=== PATIENT | male | born 1965 | race Caucasian/White ===

== ENCOUNTER 2020-07-08 14:25 | Outpatient (REF) | payer OTHER, SELFPAY ==
[2020-07-15 22:22] LABS: Stone Source KIDNEY STONE
== END 2020-07-08 14:26 | disposition home or self-care (01) ==
LOC: HO.LNP 14:25
PROVIDERS: Visit Provider Internal Medicine
DX: N20.0 Calculus of kidney (principal); E11.9 Type 2 diabetes mellitus without complications
CPT/HCPCS: 82365; 88300

== ENCOUNTER → 2020-07-10 10:12 | Outpatient (BNVA) | payer OTHER, SELFPAY | PROVIDERS: PCP Internal Medicine; Visit Provider Urology | DX: N13.2 Hydronephrosis with renal and ureteral calculous obstruction (principal); N40.1 Benign prostatic hyperplasia with lower urinary tract symptoms; N13.8 Other obstructive and reflux uropathy | CPT/HCPCS: 99214 ==

== ENCOUNTER 2020-07-15 14:22 | Outpatient (REF) | payer OTHER, SELFPAY ==
--- NOTE | 2020-07-15 | US_ITS ---
EXAMINATION: RENAL ULTRASOUND CLINICAL INFORMATION: Renal stones COMPARISON: Previous CT scans most recent June 2020 abdominal ultrasound September 2019 TECHNIQUE: Grayscale and color imaging of the kidneys FINDINGS: Right kidney measures 12.8 x 9.9 x 6.9 cm in dimension. Renal cortical thickness and echogenicity is normal. No renal stone, mass or hydronephrosis is seen. Left kidney measures 16.3 x 11 x 6.1 cm in dimension. There are 2 left renal cysts measuring 4.7 x 4.5 x 5.4 cm in the midpole and 2.8 x 2.7 x 2.4 cm in the lower pole. There are 2 renal stones measuring 6 and 7 mm in the mid pole and measuring 6 x 5 x 9 mm in the lower pole. There is no renal mass or hydronephrosis. IMPRESSION: Normal right kidney. Left renal stones. Left renal cysts.
== END 2020-07-15 14:23 | disposition home or self-care (01) ==
LOC: HO.US 14:22
PROVIDERS: Visit Provider Urology
DX: N20.0 Calculus of kidney (principal)
CPT/HCPCS: 76775

== ENCOUNTER 2020-08-06 06:07 | Day surgery (SDC) | payer OTHER, SELFPAY ==
[2020-08-01 10:47] VITALS: BMI 35.2
--- NOTE | 2020-08-05 09:41 | P.CONAN_ITS ---
HPI - Anesthesia Eval Consult details Narrative: CX'd 55yo M for Lithotripsy ESW PMFSH Past Medical History Medical History (Updated 08/06/20 @ 15:51 by Price Jose MD) Arthritis Back pain CAD (coronary artery disease) Cervical radiculopathy Depression Diabetes type 2, controlled Elevated cholesterol GERD (gastroesophageal reflux disease) History of 2019 novel coronavirus disease (COVID-19) History of ADHD History of fatty infiltration of liver HTN (hypertension) Nephrolithiasis Sleep apnea Surgical History Surgical History H/O colonoscopy History of carpal tunnel release History of esophagogastroduodenoscopy (EGD) Hx laparoscopic cholecystectomy Hx of arthroscopic knee surgery Hx of cardiac catheterization Hx of lumbar discectomy Hx of shoulder surgery Social History Social History Smoking Status: Never smoker Narrative Narrative: FOllows cardiology yearly with atypical CP. Cardiac cath 2017 showed nonobstructive CAD No blood/blood products per cheondoism Meds Allergies Allergy/AdvReac Type Severity Reaction Status Date / Time morphine [Morphine] Allergy Severe HIVES, Verified 08/01/20 10:58 THROAT CLOSES penicillin G [Penicillin G] Allergy Severe ANAPHYLAXIS Verified 08/01/20 10:59 Sulfa (Sulfonamide Allergy Severe ANAPHYLAXIS Verified 08/01/20 10:59 Antibiotics) [SULFA (SULFONAMIDE ANTIBIOTICS)] Gadolinium-Containing Allergy Intermediate Hives/Rash, Verified 08/01/20 10:59 Contrast Medi dizziness, [Gadolinium-Containing blue spots Agents] tramadol AdvReac Gastrointestinal Verified 08/01/20 10:58 Upset Home Medications Medication Instructions Recorded Confirmed Type aspirin 81 mg tablet,delayed 81 mg PO DAILY 07/10/20 08/01/20 History release hydrochlorothiazide 12.5 mg tablet 12.5 mg PO QAM 07/10/20 08/01/20 History losartan 50 mg tablet 50 mg PO DAILY 07/10/20 08/01/20 History omeprazole 20 mg capsule,delayed 20 mg PO BID 07/10/20 08/01/20 History release ranitidine HCl 150 mg tablet 150 mg PO DAILY PRN 07/10/20 08/01/20 History rosuvastatin 40 mg tablet 40 mg PO DAILY 07/10/20 08/01/20 History metoprolol tartrate 50 mg PO BID 08/01/20 08/01/20 History Exam Exam Date and Time: August 05, 2020 0941 Height,Weight and Vital Signs: Height 5 ft 10 in Weight 111.13 kg Pertinent Lab Results Pertinent Lab Results: Laboratory Tests 06/24/20 06/24/20 12:41 12:41 WBC 7.1 Hgb 14.1 Hct 44.5 Plt Count 218 Sodium 139 Potassium 4.2 Chloride 106 BUN 12 Creatinine 1.09 Narrative Narrative: EKG 10/2019: SB@55, otherwise normal ECHO 10/30/19: LVEF 60-65%, wall motion assessment suboptimal, but no major abnormality noted, Mild calc of AV, no . Assessment and Plan Assessment Anesthesia Assessment: Chart Reviewed
[2020-08-06] VITALS (7 sets, daily range): BP systolic 122–155; BP diastolic 77–96; PULSE 60–78; RESP 16; TEMP 36.1–36.4; O2SAT 90–99
--- NOTE | 2020-08-06 06:40 | XR_ITS ---
EXAMINATION: XR ABDOMEN KUB CLINICAL INDICATION: Left kidney stone. COMPARISON: CT abdomen pelvis dated 06/24/2020 and ultrasound dated 07/15/2020 TECHNIQUE: AP view of the abdomen. FINDINGS: 2 radiodense calculi are again noted overlying the left lower renal pole, each measuring 4 mm in diameter. No right renal calculi are identified. The calculus seen in the left hemipelvis on the prior study is not radiographically apparent on the current study. There is a phlebolith in this region which appears unchanged. No discrete ureteral calculi are identified. Cholecystectomy clips are present in the right upper quadrant. Nondilated bowel gas pattern. Lung bases are clear. Mild degenerative spondylosis in the lumbar spine. XR/XR KUB IMPRESSION: 2 radiodense left renal calculi.
[2020-08-06 07:07] LABS: Glucose, Whole Blood 100 mg/dL (60-115)
[2020-08-06] MEDS: Lactated Ringers 1,000 ML 100 ML IVCONT (08:11)
--- NOTE | 2020-08-06 08:15 | MHC.SHP ---
Pre-Procedural Eval Section A The patient is an INPATIENT: No Changes since office visit: No Cold of Flu in the past 2 weeks, No New Medical Problems, No Changes in Medication and No Patient answered all questions The History & Physical has been completed within 30 days and I have reviewed it.: Yes Section B Chief Complaint: left kidney stone Allergies: Allergies Allergy/AdvReac Type Severity Reaction Status Date / Time morphine [Morphine] Allergy Severe HIVES, Verified 08/01/20 10:58 THROAT CLOSES penicillin G [Penicillin G] Allergy Severe ANAPHYLAXIS Verified 08/01/20 10:59 Sulfa (Sulfonamide Allergy Severe ANAPHYLAXIS Verified 08/01/20 10:59 Antibiotics) [SULFA (SULFONAMIDE ANTIBIOTICS)] Gadolinium-Containing Allergy Intermediate Hives/Rash, Verified 08/01/20 10:59 Contrast Medi dizziness, [Gadolinium-Containing blue spots Agents] tramadol AdvReac Gastrointestinal Verified 08/01/20 10:58 Upset Plan Patient has been examined and remains a candidate for the planned procedure
--- NOTE | 2020-08-06 09:44 | PM.OP ---
Brief Operative Note Date of procedure: 08/06/20 Pre-op diagnosis: left renal stone Procedure: Left ESWL Surgeon: Clement Bernard MD Anesthesia: MAC Estimated blood loss (mL): 0 Pathology: none sent Condition: stable Disposition: same day
--- NOTE | 2020-08-06 09:46 | PM.OP ---
Brief Operative Note Date of procedure: 08/06/20 Surgeon: Clement Bernard MD Estimated blood loss (mL): 0
--- NOTE | 2020-08-06 09:46 | W.PM.OPN ---
Operative Note Operative Note Narrative: PreOperative Diagnosis: Renal stones Post Operative Diagnosis: Renal stones Procedure: Left ESWL Surgeon: Dr Clement Bernard Anesthesia: mac/sedation Indications for procedure: They understand ESWL may be a staged procedure and subsequent intervention may be required based on imaging after ESWL. They also understand there is a risk of bleeding, infection, damage to adjacent organs. Procedure: After informed consent was verified patient was brought to the operating room placed in supine position. Anesthesia was performed per protocol. Imaging in room and confirmed. Safety pause time-out was performed. ESWL was performed. The 1st 500 shocks were performed at 60 hertz. This was performed with increasing power. Once maximum power was reached the rate was increased to 180 hertz. A total of 2500 shocks were given. Fluoroscopy showed stone disintegration. They tolerated procedure well and was transferred to the recovery area upon completion.
--- NOTE | 2020-08-06 10:06 | HO.POSTANES ---
Post Anesthesia Evaluation Post Anesthesia Evaluation Vital Signs: Vital Signs Temp Pulse Resp BP Pulse Ox 08/06/20 10:00 97.6 F 60 16 155/87 H 94 08/06/20 09:55 60 16 143/83 H 99 08/06/20 09:50 63 16 153/83 H 99 08/06/20 09:45 97.6 F 62 16 138/85 90 L 08/06/20 07:08 97.3 F 78 16 122/96 H 97 Anesthesia: General Mental Status: Awake Pain Control: Satisfactory Nausea/Vomiting: None Hydration: Adequate Anesthesia-Related Issues: No Anes. Related Issues
== END 2020-08-06 11:16 | disposition home or self-care (01) ==
PROVIDERS: PCP Internal Medicine; Visit Provider Urology
PROC: (CPT 50590; principal; 2020-08-06 08:20)
DX: N20.0 Calculus of kidney (principal); Z87.442 Personal history of urinary calculi; I10 Essential (primary) hypertension; G47.30 Sleep apnea, unspecified; E11.9 Type 2 diabetes mellitus without complications; K21.9 Gastro-esophageal reflux disease without esophagitis; F32.9 Major depressive disorder, single episode, unspecified; Z79.82 Long term (current) use of aspirin; Z79.899 Other long term (current) drug therapy; Z86.19 Personal history of other infectious and parasitic diseases; Z88.0 Allergy status to penicillin; Z88.2 Allergy status to sulfonamides; Z91.041 Radiographic dye allergy status; Z88.8 Allergy status to other drugs, medicaments and biological substances
CPT/HCPCS: 50590; 74018; 82947; J1100; J2250; J2405; J3010

== ENCOUNTER → 2020-10-02 13:06 | Outpatient (BNVA) | payer OTHER, SELFPAY | PROVIDERS: Visit Provider Urology | DX: N40.1 Benign prostatic hyperplasia with lower urinary tract symptoms (principal); N13.8 Other obstructive and reflux uropathy; N20.0 Calculus of kidney | CPT/HCPCS: 99212 ==

== ENCOUNTER → 2020-10-07 09:51 | Outpatient (BNVA) | payer OTHER, SELFPAY | PROVIDERS: Visit Provider Internal Medicine Cardiovascular Disease | DX: I25.10 Atherosclerotic heart disease of native coronary artery without angina pectoris (principal); I10 Essential (primary) hypertension; R07.89 Other chest pain; R06.02 Shortness of breath | CPT/HCPCS: 93005; 99212 ==

== ENCOUNTER → 2020-10-27 09:35 | Outpatient (REF) | payer OTHER, SELFPAY ==
--- NOTE | 2020-10-27 09:38 | CA_ITS ---
Acquisition Time: 2020-10-27 10:49:30 Total Exercise Time: 00:03:20 Test Indications: Dyspnea Medications: SEE CHART Protocol: VANE Max HR: 097 BPM 58% of Pred: 166 BPM Max BP: 138/078 mmHG Max Work Load: 5.0 METS Exercise stress test with exercise 3 min 20 sec of Vane protocol, with right hip pain and request to stop exercise, without sob or chest discomfort, without arrythmia, with normotensive response to exercise, with nondiagnostic EKG due to suboptimal heart rate and exercise time. Test reviewed with Dr Leong. Will order pharmacological nuclear stress test to further eval for ischemia. Referred By: Robbie Ocampo Overread By: DONN HDZ
== END ==
LOC: HO.CARD 09:35
PROVIDERS: Visit Provider Internal Medicine Cardiovascular Disease
DX: R07.89 Other chest pain (principal)
CPT/HCPCS: 93017

== ENCOUNTER 2020-10-31 15:02 | Emergency (ER) | payer OTHER, SELFPAY ==
[2020-10-31 15:47] VITALS: BP 198/86; PULSE 65; RESP 18; TEMP 36.4; O2SAT 97; BMI 31.8
== END 2020-10-31 18:37 | disposition left against medical advice (07) ==
PROVIDERS: Emergency Provider Emergency Medicine; PCP Internal Medicine
DX: H92.03 Otalgia, bilateral (principal); R68.84 Jaw pain
CPT/HCPCS: 99282

== ENCOUNTER → 2020-11-05 09:09 | Outpatient (REF) | payer OTHER, SELFPAY ==
--- NOTE | ~2020-11-05 | NM_ITS ---
Lexiscan Myocardial perfusion study Indication: Chest pain, shortness of breath, assess for ischemia Technique: The patient was brought in for a Lexiscan perfusion study on 11/07/2020 and was injected 0.4 mg of Lexiscan intravenously. Within a minute of this injection 35 mCi of sestamibi was given intravenously. Images were obtained using the SPECT gamma camera interlaced with the gating device. Images were obtained in supine position. Resting perfusion study was performed on 11/06/2020. Patient was administered 35 mCi of sestamibi intravenously at rest. Images were then obtained in supine position. Total DLP 88mGy-cm. Images were processed with the software and compared side to side in short axis, horizontal long axis and vertical long axis views. Findings: Raw acquisition was reviewed. The stress perfusion study showed diminished tracer uptake in the basal part of inferior wall and inferoseptal wall. With CT attenuation correction this seems to improve suggestive of diaphragmatic artifact. The gated study shows normal LV systolic function with calculated LVEF of 58%. LV cavity is normal in size. The gated study shows normal wall thickening and contraction of segments. Resting study shows diminished tracer uptake along the basal septum that seems to improve with CT attenuation correction again suggesting artifactual etiology. Gating at rest reveals normal wall motion with ejection fraction at 54%. The findings are consistent with no reversible defects. Fixed defect in the basal inferior and adjacent septal areas probably artifactual. NM/NM marilyn perf SPECT rest & str Impression: 1. Myocardial perfusion imaging study shows likely normal myocardial perfusion. No definitive evidence of any ischemia or infarction 2. Gated LVEF is 58% during stress and 54% during rest. 3. Transient ischemic dilatation not present. EKG component of the test reported separately.
--- NOTE | 2020-11-05 09:12 | CA_ITS ---
Acquisition Time: 2020-11-05 10:37:43 Total Exercise Time: 00:02:00 Test Indications: 125.10 Medications: see chart Protocol: LEXISCAN Max HR: 093 BPM 56% of Pred: 166 BPM Max BP: 126/070 mmHG Max Work Load: 1.0 METS Pharmacological stress test with Lexiscan injection while sitting and kicking his legs, without anginal symptoms, without arrythmia, with normotensive response to injection, with nondiagnostic EKG for ischemia. At 5 min recovery he reported having a pressure in his right lateral neck/ jaw. He was treated with aminophylline 75mg IVP to reverse Lexiscan with resolution of symptom. Nuclear images pending. Test reviewed with Dr Ocampo. Referred By: Aurea Castañeda Overread By: AUREA CASTAÑEDA
== END ==
LOC: HO.CARD 09:09
PROVIDERS: Visit Provider Nurse Practitioner Family
DX: R07.89 Other chest pain (principal); I25.10 Atherosclerotic heart disease of native coronary artery without angina pectoris; R06.02 Shortness of breath
CPT/HCPCS: 78452; 93017; A9500; J0280; J2785

== ENCOUNTER 2020-11-10 14:15 | Outpatient (REF) | payer OTHER, SELFPAY ==
[2020-11-10 15:20] LABS: Hematocrit 43.8 % (42-52); Hemoglobin 14.3 g/dl (14.0-18.0); Mean Corpuscular HGB Conc 32.6 g/dl (31.0-36.0); Mean Corpuscular Hemoglobin 26.2 pg (27.0-33.0); Mean Corpuscular Volume 80.4 fL (80-98); Mean Platelet Volume 10.6 fL (9.4-12.4); Platelet Count 298 X10*3/uL (160-400); Red Blood Count 5.45 X10*6/uL (4.60-5.80); Red Cell Distribution Width 13.1 % (11.0-16.0); White Blood Count 5.9 X10*3/uL (4.8-10.8)
[2020-11-10 16:08] LABS: Creatinine Urine 231.96 mg/dL; Microalbum/Creatinine Ratio Ur 15.9 ug/mg cr
[2020-11-10 16:17] LABS: Alanine Aminotransferase 72 U/L (0-40); Albumin Level 4.5 g/dL (3.5-5.0); Alkaline Phosphatase 78 U/L (39-117); Blood Urea Nitrogen 17 mg/dL (9-16); Estimated Glomerular Filt Rate > 60; Glucose Random 257 mg/dL (60-115)
[2020-11-10 16:27] LABS: Anion Gap 10 (12-20); Aspartate Amino Transferase 35 U/L (5-37); Bilirubin Total 0.6 mg/dL (0.0-1.0); Calcium 10.6 mg/dL (8.4-10.2); Carbon Dioxide 27 mmol/L (22-29); Chloride 105 mmol/L (96-108); Potassium 4.4 mmol/L (3.3-5.1); Sodium 138 mmol/L (135-145); Total Protein 7.3 g/dL (6.5-8.0)
[2020-11-10 16:32] LABS: Thyroid Stimulating Hormone 1.73 uIU/mL (0.32-4.0)
[2020-11-10 16:38] LABS: Vitamin B12 300 pg/mL (200-900)
[2020-11-11 06:22] LABS: LDL Cholesterol Direct 30 mg/dL (<100)
== END 2020-11-10 14:16 | disposition home or self-care (01) ==
LOC: HO.LAB 14:15
PROVIDERS: PCP Internal Medicine; Visit Provider Internal Medicine Endocrinology, Diabetes & Metabolism
DX: E11.65 Type 2 diabetes mellitus with hyperglycemia (principal); E11.42 Type 2 diabetes mellitus with diabetic polyneuropathy; Z79.4 Long term (current) use of insulin; E78.5 Hyperlipidemia, unspecified; I10 Essential (primary) hypertension; E66.9 Obesity, unspecified; Z68.34 Body mass index [BMI] 34.0-34.9, adult
CPT/HCPCS: 36415; 80053; 82043; 82607; 82947; 83721; 84439; 84443; 85027; 99212

== ENCOUNTER 2020-11-14 08:08 | Outpatient (REF) | payer OTHER, SELFPAY ==
--- NOTE | ~2020-11-14 | US_ITS ---
EXAMINATION: US RETROPERITONEAL LIMITED (RENAL ONLY) CLINICAL INFORMATION: Renal stone. COMPARISON: Previous renal ultrasound July [address] of the abdomen and pelvis June 2020 TECHNIQUE: Grayscale and color imaging of the kidneys FINDINGS: RIGHT KIDNEY: 11.9 x 6.4 x 6.7 cm (SAG x AP x TRV). The kidney is normal in size, contour, and echogenicity. Renal cortical thickness is normal. No calculi or focal parenchymal lesions. No hydronephrosis. LEFT KIDNEY: 16.3 x 6.4 x 7.2 cm (SAG x AP x TRV). There is a duplicated left renal collecting system. Renal cortical thickness and echogenicity is normal. There is a 4.5 cm cyst in the lower pole. There are multiple echogenic densities with twinkle artifact some acoustic shadowing suggestive of small stones. The largest measures 4 mm in the lower pole. There is no hydronephrosis or mass. US/US renal BI IMPRESSION: Duplicated left renal collecting system. Multiple left renal stones, largest measuring 4 mm in the lower pole. 4.5 cm left renal cyst. Normal right kidney.
[2020-11-14 09:04] LABS: Alanine Aminotransferase 64 U/L (0-40); Albumin Level 4.4 g/dL (3.5-5.0); Alkaline Phosphatase 76 U/L (39-117); Aspartate Amino Transferase 28 U/L (5-37); Bilirubin Direct 0.2 mg/dL (0.0-0.5); Bilirubin Total 0.5 mg/dL (0.0-1.0); Calcium 9.4 mg/dL (8.4-10.2); Total Protein 7.1 g/dL (6.5-8.0)
[2020-11-14 09:26] LABS: Vitamin D 25-OH Total 13.8 ng/mL (>30)
[2020-11-17 16:47] LABS: Calcium (PTHI) 9.6 mg/dL (8.6-10.3); PTHI 54 pg/mL (14-64)
== END 2020-11-14 08:09 | disposition home or self-care (01) ==
LOC: HO.LAB 08:08
PROVIDERS: PCP Internal Medicine; Visit Provider Internal Medicine Endocrinology, Diabetes & Metabolism
DX: E11.65 Type 2 diabetes mellitus with hyperglycemia (principal); Z79.4 Long term (current) use of insulin; N20.0 Calculus of kidney
CPT/HCPCS: 36415; 76775; 80076; 82306; 82310; 83970

== ENCOUNTER → 2020-11-24 10:13 | Outpatient (BNVA) | payer OTHER, SELFPAY | PROVIDERS: PCP Internal Medicine; Visit Provider Internal Medicine Gastroenterology | CPT/HCPCS: Q3014 ==

== ENCOUNTER 2020-11-25 10:35 | Inpatient (IN) | payer OTHER, SELFPAY ==
[2020-11-25] VITALS (9 sets, daily range): BP systolic 137–177; BP diastolic 65–97; PULSE 51–67; RESP 15–18; TEMP 36.6–37; O2SAT 95–98; BMI 27.1
--- NOTE | ~2020-11-25 | CT_ITS ---
EXAMINATION: CT ABDOMEN AND PELVIS WITHOUT CONTRAST CLINICAL INFORMATION: Left flank pain. COMPARISON: 06/24/2020 TECHNIQUE: Multidetector volumetric imaging was performed from the superior aspect of the liver through the pubic symphysis. Sagittal and coronal reformatted images were obtained on the technologist's workstation. This CT examination was performed using dose optimization techniques as appropriate, variously including the following: *Automated exposure control *Adjustment of mA and/or kV according to patient size (this includes techniques or standardized protocols for targeted exams where dose is matched to indication/reason for exam; i.e. extremities or head) *Use of iterative reconstruction technique DLP: 746 mGy-cm FINDINGS: LUNG BASES: The visualized lung bases are unremarkable. LIVER, GALLBLADDER, AND BILIARY TREE: The liver is normal in size, shape, and attenuation. No focal hepatic lesion or biliary ductal dilatation is present. Stable 2 small calcified granulomas in the right lobe. Status post cholecystectomy. PANCREAS: Unremarkable. SPLEEN: Unremarkable. Stable small nodule adjacent to the spleen. ADRENAL GLANDS: Unremarkable. KIDNEYS AND URETERS: There are calcific densities in the distal left ureter in the pelvis, extending over a distance of 1.8 cm craniocaudal. This appears to represent multiple calculi clustered together within the ureter. Reference image 5:69, 6:52, [id number]. There is associated mild hydronephrosis. Left renal 4.7 cm cyst. Mild left perinephric stranding. No renal calculi are seen. No right hydronephrosis. BLADDER: Underdistended grossly unremarkable. GASTROINTESTINAL TRACT: The small and large bowel are unremarkable. The appendix is unremarkable. ABDOMINAL WALL: No significant hernia is appreciated. LYMPH NODES: No adenopathy seen. VASCULAR: Normal caliber aorta. PELVIC VISCERA: Within normal limits. OSSEOUS STRUCTURES: Surgical changes from posterior spinal fusion at L5-S1. Mild thoracolumbar spondylosis otherwise. No acute osseous abnormality seen. CT/CT abdomen pelvis wo con IMPRESSION: 1. Calcific densities in the distal left ureter in the pelvis, having the appearance of multiple calculi clustered together within the ureter extending over a distance approximately 1.8 cm craniocaudal. There is associated mild left hydronephrosis. 2. Left renal 4.7 cm cyst. 3. Stable 2 small calcified granulomas in the liver. 4. Status post cholecystectomy.
[2020-11-25 12:53] LABS: Glucose Urine UA 100 MG/DL (NEG); Leukocyte Esterase Urine NEG (NEG); Nitrite Urine NEG (NEG); PH 5.5 (5.0-8.0); Specific Gravity - Urine >= 1.030 (1.005-1.025); Urine Blood 3+ (NEG); Urine Ketones 5 MG/DL (NEG); Urine Protein NEG (NEG-TRACE)
[2020-11-25 12:58] LABS: Appearance Urine HAZY; Color Urine YELLOW
[2020-11-25 13:05] LABS: Mucus Urine 1+ /LPF; Squamous Epithelial Cell Urine 1+ /LPF; WBC Urine 0 /HPF (0-4)
[2020-11-25 13:31] LABS: Glucose, Whole Blood 210 mg/dL (60-115)
[2020-11-25 13:37] LABS: MANUAL DIFF FLAG NO
[2020-11-25] MEDS: Ketorolac Tromethamine 30 MG/ML VIAL IVPUSH (13:37)
[2020-11-25] MEDS: 0.9 % Sodium Chloride 1,000 ML 999 ML IVCONT (13:37)
[2020-11-25 13:39] LABS: Basophils Percent Auto 0.3 % (0-2); Eosinophils Absolute Auto 0.3 X10*3/uL (0.0-0.4); Eosinophils Percent Auto 4.1 % (0-4); Hematocrit 40.5 % (42-52); Hemoglobin 13.3 g/dl (14.0-18.0); Imm Gran Abs Auto 0.02 X10*3/uL (0.00-0.03); Imm Gran Pct Auto 0.3 % (0.0-0.4); Lymphocytes Absolute Auto 1.7 X10*3/uL (1.2-4.9); Lymphocytes Percent Auto 27.6 % (20-40); Mean Corpuscular HGB Conc 32.8 g/dl (31.0-36.0); Mean Corpuscular Hemoglobin 26.6 pg (27.0-33.0); Mean Platelet Volume 10.5 fL (9.4-12.4); Monocytes Absolute Auto 0.6 X10*3/uL (0.1-1.2); Monocytes Percent Auto 9.2 % (2-11); Neutrophils Absolute Auto 3.6 X10*3/uL (2.0-8.3); Neutrophils Percent Auto 58.5 % (45-73); Platelet Count 215 X10*3/uL (160-400); Red Cell Distribution Width 13.8 % (11.0-16.0); White Blood Count 6.1 X10*3/uL (4.8-10.8)
[2020-11-25 13:43] LABS: Prothrombin Time 12.1 SEC (10.8-13.0)
[2020-11-25 14:02] LABS: Alanine Aminotransferase 68 U/L (0-40); Albumin Level 4.1 g/dL (3.5-5.0); Alkaline Phosphatase 71 U/L (39-117); Anion Gap 13 (12-20); Aspartate Amino Transferase 35 U/L (5-37); Bilirubin Direct 0.2 mg/dL (0.0-0.5); Bilirubin Total 0.4 mg/dL (0.0-1.0); Blood Urea Nitrogen 16 mg/dL (9-16); Calcium 9.2 mg/dL (8.4-10.2); Carbon Dioxide 26 mmol/L (22-29); Chloride 105 mmol/L (96-108); Creatinine Clr Calc Pharmacy 97.5; Estimated Glomerular Filt Rate > 60; Glucose Random 224 mg/dL (60-115); Magnesium 1.5 mg/dL (1.6-2.6); Sodium 140 mmol/L (135-145); Total Protein 6.8 g/dL (6.5-8.0)
--- NOTE | 2020-11-25 14:18 | ED.ABDPAIN ---
HPI - Abdominal Pain General Chief Complaint: Abdominal Pain Stated Complaint: kidney pain Time Seen by Provider: 11/25/20 12:51 Source: patient Mode of arrival: ambulatory Limitations: no limitations History of Present Illness HPI narrative: 55-year-old male with a past medical history of diabetes type 2, CAD, hypertension, tubular adenoma of colon, GERD, nephrolithiasis status post lithotripsy by Dr. Bernard on 08/06/2020, BPH with urinary obstruction/LUTS and depression presenting to the ED with complaints of left flank pain for the past week worse today with associated hematuria and diarrhea 4 times this morning. Denies any fevers, chills, nausea/vomiting, dysuria or constipation or any other symptoms complaints or concerns at this time. MD elicited complaint: flank pain Pertinent past history: kidney stones Onset (ago): week(s) (One week worse today) Pain Consistency: constant Location: L flank Severity: severe Quality: aching Radiation: none Migration to: no migration Exacerbating factors: nothing Relieving factors: nothing Associated symptoms: diarrhea and hematuria Related Data Home Medications Medication Instructions Recorded Confirmed aspirin 81 mg tablet,delayed 81 mg PO DAILY 07/10/20 11/25/20 release insulin aspart U-100 [Novolog 10 - 20 unit SUBCUT TIDAC 11/25/20 11/25/20 Flexpen U-100 Insulin] metformin 750 mg PO BIDWM 11/25/20 11/25/20 Previous Rx's Medication Instructions Recorded ezetimibe 10 mg tablet 10 mg PO DAILY #90 tab 07/17/20 tamsulosin 0.4 mg PO BEDTIME #14 cap 08/06/20 omeprazole 20 mg capsule,delayed 20 mg PO BID 30 Days #60 cap 08/27/20 release metoprolol tartrate 50 mg tablet 50 mg PO BID #180 tab 09/12/20 allopurinol 100 mg tablet 100 mg PO DAILY #90 tab 10/02/20 pyridoxine (vitamin B6) 100 mg 100 mg PO DAILY #90 tab 10/02/20 tablet fluoxetine 20 mg capsule 20 mg PO DAILY #30 cap 10/16/20 pregabalin 150 mg capsule 150 mg PO BID PRN 30 Days #60 cap 10/28/20 naproxen 500 mg tablet 500 mg PO BID PRN #30 tab 10/30/20 pen needle, diabetic 32 gauge x #150 ea 11/03/20 insulin glargine 100 unit/mL (3 30 unit SUBCUT QPM 30 Days #15 ml 11/10/20 mL) subcutaneous pen Allergies Allergy/AdvReac Type Severity Reaction Status Date / Time morphine [Morphine] Allergy Severe HIVES, Verified 11/25/20 11:55 THROAT CLOSES penicillin G [Penicillin G] Allergy Severe ANAPHYLAXIS Verified 11/25/20 11:55 Sulfa (Sulfonamide Allergy Severe ANAPHYLAXIS Verified 11/25/20 11:55 Antibiotics) [SULFA (SULFONAMIDE ANTIBIOTICS)] Gadolinium-Containing Allergy Intermediate Hives/Rash, Verified 11/25/20 11:55 Contrast Medi dizziness, [Gadolinium-Containing blue spots Agents] Iodinated Contrast Media Allergy Intermediate hives,rash Verified 11/25/20 11:55 tramadol AdvReac Gastrointestinal Verified 11/25/20 11:55 Upset Review of Systems Review of Systems Constitutional : No Fever, No Chills, No Night Sweats, No Fatigue, No Malaise Cardiovascular : No Chest Pain, No SOB Respiratory : No Cough, No Sputum, No Wheezing, No Dyspnea Gastrointestinal : + Abdominal pain, + Diarrhea, No Nausea, No Vomiting, No Hematochezia, No Melena Genitourinary : + Hematuria, No irregular bleeding, No Dysuria, No Urinary Frequency, No Urinary Incontinence, No Urgency, No Flank Pain Musculoskeletal : No joint pain, No Myalgias, No Joint Swelling Skin : No Skin Lesions, No rash Neuro : No Weakness, No Numbness, No Paresthesias, No Loss of Consciousness, No Dizziness, No Headache Heme/Lymph: No Lymphadenopathy Endocrine : No Temperature Intolerance Yes all other systems are reviewed and are negative Physical Exam Vital Signs: Vital Signs: Last Vital Signs Temp 98.6 F 11/25/20 16:51 Pulse 56 11/25/20 16:51 Resp 16 11/25/20 16:51 BP 167/83 H 11/25/20 16:51 Pulse Ox 97 11/25/20 16:51 Body Mass Index 27.1 vital signs have been reviewed as normal and appeared to be correct. Blood pressure normal. Heart rate normal. Respiration rate normal. Temperature normal. Oxygen saturation normal. Appearance: Alert. Oriented X3. No acute distress. Head: Normal external exam. Normocephalic. Eyes: PERRLA. EOMI. Conjunctiva and sclera normal. Eyelids normal. ENT: Pharynx normal. Uvula midline. Moist mucous membranes. Neck: Normal inspection. Neck supple. FROM. No adenopathy. No meningeal signs. CVS: Normal heart rate and rhythm. Heart sound normal. No murmurs noted. Pulses normal throughout. Respiratory: No respiratory distress. Painless inspiration. Breath sounds normal. No wheezes/rales/rhonchi noted. Chest nontender. No accessory muscle usage noted or decreased air movement noted. Abdomen: Soft and tender to palpation to left side of abdomen/left flank with guarding. Nondistended. No rigidity. Bowel sounds normal in all 4 quadrants. No distention noted. No organomegaly noted. No visible injury noted. No rebound tenderness. Negative Rovsing sign. Negative obturator's sign. Negative psoas sign. Negative Matos sign. Back: + Left CVA tenderness. No right CVA tenderness noted. Full range of motion noted. Skin: Skin warm and dry. Normal skin color. Normal skin turgor. No rashes/lesions/lacerations noted. Extremities: Extremities exhibit normal range of motion. Extremities nontender. Neuro: Oriented X 3. No motor deficit. No sensory deficit. Reflexes normal. Course Course Course Narrative: 1pm - 55-year-old male with a past medical history of diabetes type 2, CAD, hypertension, tubular adenoma of colon, GERD, nephrolithiasis status post lithotripsy by Dr. Bernard on 08/06/2020, BPH with urinary obstruction/LUTS and depression presenting to the ED with complaints of left flank pain for the past week worse today with associated hematuria and diarrhea 4 times this morning. - Concern for kidney stones vs pyelo vs UTI vs diverticulitis - Plan: Labs, UA, CT scan of abdomen pelvis without IV contrast. Provide a L IV fluids, 30 mg of Toradol and re-evaluate. Reevaluation(s) Reevaluation #1: - magnesium 1.5 - glucose 210 - otherwise all other labs are within normal limits. - UA revealed blood otherwise no evidence of UTI. - CT scan of abd/pelvis revealed There are calcific densities in the distal left ureter in the pelvis, extending over a distance of 1.8 cm craniocaudal. This appears to represent multiple calculi clustered together within the ureter. - therefore consulted with Dr. Bernard the urologist at this time. Time: 16:20 Reevaluation #2: - I consulted with Dr. Bernard and he recommended the patient be admitted to the medicine team due to he has a history of insulin-dependent diabetes and he will place the patient on the schedule for surgical procedure tomorrow for his kidney stones. - patient understands agrees with this plan. - Discussed this patient with who accepted admission at this time. Time: 16:53 MDM - Abdominal Pain Medical Records Attestation: I reviewed the patient's medical records. Lab Data Attestation: I reviewed the patient's lab results. Result diagrams: 11/25/20 13:27 11/25/20 13:27 Labs: Lab Results 11/25/20 11/25/20 11/25/20 Range/Units 12:04 13:19 13:27 WBC 6.1 (4.8-10.8) X10*3/uL RBC 5.00 (4.60-5.80) X10*6/uL Hgb 13.3 L (14.0-18.0) g/dl Hct 40.5 L (42-52) % MCV 81.0 (80-98) fL MCH 26.6 L (27.0-33.0) pg MCHC 32.8 (31.0-36.0) g/dl RDW 13.8 (11.0-16.0) % Plt Count 215 D (160-400) X10*3/uL MPV 10.5 (9.4-12.4) fL Immature Gran % (Auto) 0.3 (0.0-0.4) % Neut % (Auto) 58.5 (45-73) % Lymph % (Auto) 27.6 (20-40) % [place] % (Auto) 9.2 (2-11) % Eos % (Auto) 4.1 H (0-4) % Baso % (Auto) 0.3 (0-2) % Lymph # (Auto) 1.7 (1.2-4.9) X10*3/uL [place] # (Auto) 0.6 (0.1-1.2) X10*3/uL Eos # (Auto) 0.3 (0.0-0.4) X10*3/uL Baso # (Auto) 0.0 (0.0-0.2) X10*3/uL Abs Immat Gran (auto) 0.02 (0.00-0.03) X10*3/uL Absolute Neuts (auto) 3.6 (2.0-8.3) X10*3/uL Absolute Nucleated RBC 0.000 (0.0-0.012) X10*3/uL Nucleated RBC % (auto) 0.0 (0.0-0.2) /100WBC PT (10.8-13.0) SEC INR (0.9-1.1) Sodium (135-145) mmol/L Potassium (3.3-5.1) mmol/L Chloride (96-108) mmol/L Carbon Dioxide (22-29) mmol/L Anion Gap (12-20) BUN (9-16) mg/dL Creatinine (0.5-1.4) mg/dL Estim Creat Clear Calc Estimated GFR POC Glucose 210 H (60-115) mg/dL Random Glucose (60-115) mg/dL Calcium (8.4-10.2) mg/dL Magnesium (1.6-2.6) mg/dL Total Bilirubin (0.0-1.0) mg/dL Direct Bilirubin (0.0-0.5) mg/dL AST (5-37) U/L ALT (0-40) U/L Alkaline Phosphatase (39-117) U/L Total Protein (6.5-8.0) g/dL Albumin (3.5-5.0) g/dL Urine Color YELLOW Urine Appearance HAZY Urine pH 5.5 (5.0-8.0) Ur Specific [place] >= 1.030 H (1.005-1.025) Urine Protein NEG (NEG-TRACE) MG/DL Urine Glucose (UA) 100 H (NEG) MG/DL Urine Ketones 5 (NEG) MG/DL Urine Blood 3+ H (NEG) Urine Nitrite NEG (NEG) Ur Leukocyte Esterase NEG (NEG) Urine RBC 76-150 H (0) /HPF Urine WBC 0 (0-4) /HPF Ur Squamous Epith Cells 1+ /LPF Urine Bacteria NONE /LPF Urine Mucus 1+ /LPF 11/25/20 11/25/20 Range/Units 13:27 13:27 WBC (4.8-10.8) X10*3/uL RBC (4.60-5.80) X10*6/uL Hgb (14.0-18.0) g/dl Hct (42-52) % MCV (80-98) fL MCH (27.0-33.0) pg MCHC (31.0-36.0) g/dl RDW (11.0-16.0) % Plt Count (160-400) X10*3/uL MPV (9.4-12.4) fL Immature Gran % (Auto) (0.0-0.4) % Neut % (Auto) (45-73) % Lymph % (Auto) (20-40) % [place] % (Auto) (2-11) % Eos % (Auto) (0-4) % Baso % (Auto) (0-2) % Lymph # (Auto) (1.2-4.9) X10*3/uL [place] # (Auto) (0.1-1.2) X10*3/uL Eos # (Auto) (0.0-0.4) X10*3/uL Baso # (Auto) (0.0-0.2) X10*3/uL Abs Immat Gran (auto) (0.00-0.03) X10*3/uL Absolute Neuts (auto) (2.0-8.3) X10*3/uL Absolute Nucleated RBC (0.0-0.012) X10*3/uL Nucleated RBC % (auto) (0.0-0.2) /100WBC PT 12.1 (10.8-13.0) SEC INR 1.0 (0.9-1.1) Sodium 140 (135-145) mmol/L Potassium 4.0 (3.3-5.1) mmol/L Chloride 105 (96-108) mmol/L Carbon Dioxide 26 (22-29) mmol/L Anion Gap 13 (12-20) BUN 16 (9-16) mg/dL Creatinine 0.95 (0.5-1.4) mg/dL Estim Creat Clear Calc 97.5 Estimated GFR > 60 POC Glucose (60-115) mg/dL Random Glucose 224 H (60-115) mg/dL Calcium 9.2 (8.4-10.2) mg/dL Magnesium 1.5 L (1.6-2.6) mg/dL Total Bilirubin 0.4 (0.0-1.0) mg/dL Direct Bilirubin 0.2 (0.0-0.5) mg/dL AST 35 (5-37) U/L ALT 68 H (0-40) U/L Alkaline Phosphatase 71 (39-117) U/L Total Protein 6.8 (6.5-8.0) g/dL Albumin 4.1 (3.5-5.0) g/dL Urine Color Urine Appearance Urine pH (5.0-8.0) Ur Specific [place] (1.005-1.025) Urine Protein (NEG-TRACE) MG/DL Urine Glucose (UA) (NEG) MG/DL Urine Ketones (NEG) MG/DL Urine Blood (NEG) Urine Nitrite (NEG) Ur Leukocyte Esterase (NEG) Urine RBC (0) /HPF Urine WBC (0-4) /HPF Ur Squamous Epith Cells /LPF Urine Bacteria /LPF Urine Mucus /LPF Imaging Data CT scan of abdomen and pelvis without contrast: Attestation: I personally reviewed and interpreted this imaging study as follows: Radiologist's impression: FINDINGS: LUNG BASES: The visualized lung bases are unremarkable. LIVER, GALLBLADDER, AND BILIARY TREE: The liver is normal in size, shape, and attenuation. No focal hepatic lesion or biliary ductal dilatation is present. Stable 2 small calcified granulomas in the right lobe. Status post cholecystectomy. PANCREAS: Unremarkable. SPLEEN: Unremarkable. Stable small nodule adjacent to the spleen. ADRENAL GLANDS: Unremarkable. KIDNEYS AND URETERS: There are calcific densities in the distal left ureter in the pelvis, extending over a distance of 1.8 cm craniocaudal. This appears to represent multiple calculi clustered together within the ureter. Reference image 5:69, 6:52, [id number]. There is associated mild hydronephrosis. Left renal 4.7 cm cyst. Mild left perinephric stranding. No renal calculi are seen. No right hydronephrosis. BLADDER: Underdistended grossly unremarkable. GASTROINTESTINAL TRACT: The small and large bowel are unremarkable. The appendix is unremarkable. ABDOMINAL WALL: No significant hernia is appreciated. LYMPH NODES: No adenopathy seen. VASCULAR: Normal caliber aorta. PELVIC VISCERA: Within normal limits. OSSEOUS STRUCTURES: Surgical changes from posterior spinal fusion at L5-S1. Mild thoracolumbar spondylosis otherwise. No acute osseous abnormality seen. CT/CT abdomen pelvis wo con IMPRESSION: 1. Calcific densities in the distal left ureter in the pelvis, having the appearance of multiple calculi clustered together within the ureter extending over a distance approximately 1.8 cm craniocaudal. There is associated mild left hydronephrosis. 2. Left renal 4.7 cm cyst. 3. Stable 2 small calcified granulomas in the liver. 4. Status post cholecystectomy. Critical Care Time Critical Care Time Critical Care Time: Yes Total Critical Care Time: 60 Attestation: I personally attest to this time spent taking care of the patient Discharge Plan Discharge Clinical Impression: Left nephrolithiasis, Hydronephrosis, Cyst of left kidney, Granuloma of liver Prescriptions: No Action ezetimibe 10 mg tablet 10 mg PO DAILY Qty: 90 RF: 2 omeprazole 20 mg capsule,delayed release(DR/EC) 20 mg PO BID 30 Days Qty: 60 RF: 3 metoprolol tartrate 50 mg tablet 50 mg PO BID Qty: 180 RF: 1 fluoxetine 20 mg capsule 20 mg PO DAILY Qty: 30 RF: 5 pregabalin 150 mg capsule 150 mg PO BID PRN (Reason: pain) 30 Days Qty: 60 RF: 2 (DME) pen needle, diabetic [BD Terri 2nd Gen Pen Needle] 32 gauge x 5/32 needle See Rx Instructions .MEDSUPPLY Qty: 150 RF: 4 tamsulosin 0.4 mg capsule 0.4 mg PO BEDTIME Qty: 14 RF: 0 insulin aspart U-100 [Novolog Flexpen U-100 Insulin] 100 unit/mL (3 mL) insulin pen 10 - 20 unit subcut TIDAC RF: 0 metformin 750 mg tablet extended release 24 hr 750 mg PO BIDWM RF: 0 naproxen [Naprosyn] 500 mg tablet 500 mg PO BID PRN (Reason: pain) Qty: 30 RF: 3 pyridoxine (vitamin B6) 100 mg tablet 100 mg PO DAILY Qty: 90 RF: 1 allopurinol 100 mg tablet 100 mg PO DAILY Qty: 90 RF: 3 aspirin 81 mg tablet,delayed release (DR/EC) 81 mg PO DAILY RF: 0 Lantus Solostar U-100 Insulin 100 unit/mL (3 mL) insulin pen 30 unit subcut QPM 30 Days Qty: 15 RF: 5 PMFSH Past Medical History Attestation statement: The following information was validated with the patient. Medical History Arthritis Back pain CAD (coronary artery disease) Cervical radiculopathy Depression Diabetic polyneuropathy associated with type 2 diabetes mellitus Dyslipidemia Elevated cholesterol Failed back syndrome of lumbar spine GERD (gastroesophageal reflux disease) History of 2019 novel coronavirus disease (COVID-19) History of ADHD History of fatty infiltration of liver HTN (hypertension) Hypogonadism Nephrolithiasis Obesity (BMI 30-39.9) Obstructive sleep apnea Sleep apnea Tubular adenoma of colon Tubular adenoma of colon Type 2 diabetes mellitus with hyperglycemia Surgical History Gynecomastia H/O colonoscopy History of carpal tunnel release History of elbow surgery History of esophagogastroduodenoscopy (EGD) History of kidney surgery Hx laparoscopic cholecystectomy Hx of arthroscopic knee surgery Hx of cardiac catheterization Hx of lumbar discectomy Hx of shoulder surgery Family History Family History Father Diabetes Hypertension Myocardial infarction Mother Diabetes Stroke Alzheimers disease Pacemaker Brother Diabetes Heart problem Sister Myocardial infarction Maternal Grandmother Myocardial infarction Social History Social History Household Members: Spouse and Children Alcohol intake: current Alcohol intake frequency: does not drink Smoking Status: Never smoker Smoked in Last 30 Days: No Use of substances other than those prescribed or required for medical reasons: No Advance Directives: No Advance Directives Information Provided: No
--- NOTE | 2020-11-25 14:31 | PC.NURSE ---
pattient sleeping after being medicated.
[2020-11-25] MEDS: ondansetron HCL 4 MG/2 ML VIAL IVPUSH (16:49)
[2020-11-25] MEDS: HYDROmorphone HCl 0.5 MG/0.5 ML SYRINGE IVPUSH (16:50)
[2020-11-25 16:59] LABS: COVID-19 Test Negative (Negative)
[2020-11-25 21:28] LABS: Glucose, Whole Blood 124 mg/dL (60-115)
[2020-11-25] MEDS: Tamsulosin HCL 0.4 MG CAPSULE PO (21:36)
[2020-11-25] MEDS: Omeprazole 20 MG CAPSULE.DR PO (21:36)
[2020-11-25] MEDS: Metoprolol Tartrate 50 MG TABLET PO (21:37)
[2020-11-25 22:23] LABS: Glucose, Whole Blood 146 mg/dL (60-115)
[2020-11-26] VITALS (18 sets, daily range): BP systolic 111–181; BP diastolic 60–90; PULSE 52–72; RESP 12–18; TEMP 36.1–36.8; O2SAT 92–99
[2020-11-26] MEDS: 0.9 % Sodium Chloride Flush 3 ML SYRINGE IVFLUSH (00:01)
[2020-11-26 04:49] LABS: Anion Gap 13 (12-20); Blood Urea Nitrogen 14 mg/dL (9-16); Calcium 9.4 mg/dL (8.4-10.2); Carbon Dioxide 27 mmol/L (22-29); Chloride 104 mmol/L (96-108); Creatinine Clr Calc Pharmacy 105.3; Estimated Glomerular Filt Rate > 60; Glucose Random 162 mg/dL (60-115); Potassium 3.8 mmol/L (3.3-5.1); Sodium 140 mmol/L (135-145)
--- NOTE | 2020-11-26 06:05 | P.HPHOSP_ITS ---
History of Present Illness Date of Service: 11/25/20 Chief Complaint: Abdominal pain This is a 55-year-old male with past medical history of CAD, hypertension, hydroureteronephrosis secondary to nephrolithiasis, diabetes, depression, HLD, who presents to hospital with complaints of left upper quadrant abdominal pain as well as flank pain radiating to the groin. Patient reports that he has been having trouble with his left kidney since his had stone removal surgery in August. But his current pain started 2 days ago, 07/12, associated with nausea and vomiting and diarrhea, diarrhea is nonbloody. He has hematuria as well as discomfort on peeing with no urgency frequency or dysuria. He also was concerned about his sugar that was in the 400s. He called his urologist and was asked come to the hospital. He otherwise denies any headache, change in vision, chest pain, no shortness of breath, no lower extremity edema. Patient hemodynamically stable with no significant abnormal vitals. Labs remarkable for hemoglobin of 13.3, otherwise within normal range. magnesium level of 1.5. UA positive for urine blood as well as RBC. COVID-[address] shows calcific densities in the distal left ureter in the pelvis. Associated mild left hydronephrosis. Review of Systems Review of Systems: Yes all other systems are reviewed and are negative [facility] Medical History Arthritis Back pain CAD (coronary artery disease) Cervical radiculopathy Depression Diabetic polyneuropathy associated with type 2 diabetes mellitus Dyslipidemia Elevated cholesterol Failed back syndrome of lumbar spine GERD (gastroesophageal reflux disease) History of 2019 novel coronavirus disease (COVID-19) History of ADHD History of fatty infiltration of liver HTN (hypertension) Hypogonadism Nephrolithiasis Obesity (BMI 30-39.9) Obstructive sleep apnea Sleep apnea Tubular adenoma of colon Tubular adenoma of colon Type 2 diabetes mellitus with hyperglycemia Family History Father Diabetes Hypertension Myocardial infarction Mother Diabetes Stroke Alzheimers disease Pacemaker Brother Diabetes Heart problem Sister Myocardial infarction Maternal Grandmother Myocardial infarction Surgical History Gynecomastia H/O colonoscopy History of carpal tunnel release History of elbow surgery History of esophagogastroduodenoscopy (EGD) History of kidney surgery Hx laparoscopic cholecystectomy Hx of arthroscopic knee surgery Hx of cardiac catheterization Hx of lumbar discectomy Hx of shoulder surgery Social History Household Members: Family Housing: Apartment Do you presently have visiting nurse or other home services: Yes Alcohol intake: current Alcohol intake frequency: does not drink Smoking Status: Never smoker Smoked in Last 30 Days: No Second Hand Smoke Exposure: No Use of substances other than those prescribed or required for medical reasons: No Currently Displaying Signs/Symptoms of Drug Intoxication Withdrawal: No Have you been hit, kicked, punched, or otherwise hurt by someone within the past year? If so, by whom?: No Do you feel safe in your current relationship?: Yes Is there a partner from a previous relationship who is making you feel unsafe now?: No Are you made to feel afraid or neglected: No Advance Directives: No Advance Directives Information Provided: No Do you have thoughts of harming others: None Do you have a plan to hurt others: No Plan Recently lost weight without trying: Yes Meds Allergies Allergy/AdvReac Type Severity Reaction Status Date / Time morphine [Morphine] Allergy Severe HIVES, Verified 11/25/20 11:55 THROAT CLOSES penicillin G [Penicillin G] Allergy Severe ANAPHYLAXIS Verified 11/25/20 11:55 Sulfa (Sulfonamide Allergy Severe ANAPHYLAXIS Verified 11/25/20 11:55 Antibiotics) [SULFA (SULFONAMIDE ANTIBIOTICS)] Gadolinium-Containing Allergy Intermediate Hives/Rash, Verified 11/25/20 11:55 Contrast Medi dizziness, [Gadolinium-Containing blue spots Agents] Iodinated Contrast Media Allergy Intermediate hives,rash Verified 11/25/20 11:55 tramadol AdvReac Gastrointestinal Verified 11/25/20 11:55 Upset Active Medications: Current Medications Generic Name Dose Route Start Last Admin Trade Name Freq PRN Reason Stop Dose Admin Acetaminophen 650 mg 11/25/20 20:29 Acetaminophen 325 Mg Tablet PO Q6H PRN Pain, Mild (Pain Scale 1-3) Allopurinol 100 mg 11/26/20 09:00 Allopurinol 100 Mg Tablet PO DAILY EDITH Docusate Sodium 100 mg 11/25/20 20:29 Docusate Sodium 100 Mg Capsule PO DAILY PRN Constipation Ezetimibe 10 mg 11/26/20 09:00 Ezetimibe 10 Mg Tablet PO DAILY [facility] Fluoxetine HCl 20 mg 11/26/20 09:00 Fluoxetine Hcl 20 Mg Capsule PO DAILY [facility] Insulin Glargine 30 unit 11/25/20 21:00 11/25/20 21:37 Insulin Glargine,Hum.Rec.Anlog 100 Unit/Ml 10 Ml Vial SUBCUT Not Given BEDTIME [facility] Insulin Human Lispro 0 unit 11/26/20 07:30 Insulin Lispro 100 Unit/Ml 3 Ml Vial SUBCUT TIDAC [facility] Protocol Metoprolol Tartrate 50 mg 11/25/20 21:00 11/25/20 21:37 Metoprolol Tartrate 50 Mg Tablet PO 50 mg BID [facility] Administration Protocol Morphine Sulfate 4 mg 11/25/20 20:29 Morphine Sulfate 4 Mg/Ml Cartridge IVPUSH Q4H PRN Pain, Severe (Pain Scale 7-10) Omeprazole 20 mg 11/25/20 21:00 11/25/20 21:36 Omeprazole 20 Mg Capsule.Dr PO 20 mg BID [facility] Administration Ondansetron HCl 4 mg 11/25/20 20:29 Ondansetron Hcl 4 Mg/2 Ml Vial IVPUSH Q8H PRN Nausea and Vomiting Pharmacy Consult 1 each 11/25/20 16:27 Consult Rx Perform Med Rec MISCELLANE ONCE PRN Consult order Pregabalin 150 mg 11/25/20 20:29 Pregabalin 150 Mg Capsule PO BID PRN pain Sodium Chloride 3 ml 11/26/20 00:00 11/26/20 00:01 0.9 % Sodium Chloride Flush 3 Ml Syringe IVFLUSH 3 ml QSHIFT [facility] Administration Tamsulosin HCl 0.4 mg 11/25/20 21:00 11/25/20 21:36 Tamsulosin Hcl 0.4 Mg Capsule PO 0.4 mg BEDTIME [facility] Administration Home Medications Medication Instructions Recorded Confirmed Last Taken Type aspirin 81 mg tablet,delayed 81 mg PO DAILY 07/10/20 11/25/20 Unknown History release insulin aspart U-100 [Novolog 10 - 20 unit SUBCUT TIDAC 11/25/20 11/25/20 Unknown History Flexpen U-100 Insulin] metformin 750 mg PO BIDWM 11/25/20 11/25/20 Unknown History Physical Exam Vital Signs and Narrative: Vital Signs: Last Vital Signs Temp 97.1 F 11/26/20 03:57 Pulse 52 11/26/20 03:57 Resp 16 11/26/20 03:57 BP 114/60 11/26/20 03:57 Pulse Ox 99 11/26/20 03:57 Body Mass Index 27.1 Const: General: cooperative and no acute distress Orientation/consciousness: patient oriented x3 Eyes: General: appearance normal, both eyes and all related structures Resp: Effort & Inspection: normal respiratory effort and able to speak in complete sentences Cardio: Rate: regular rate Rhythm: regular rhythm GI: Other: Left upper quadrant tenderness with deep palpation, Palpation (GI): Soft to palpation Auscultation: normal bowel sounds : Other: Left CVA Skin: General skin exam: no rashes or lesions noted Neuro: General: patient oriented x3 Cognition (Neuro): normal cognition Extrem: General: Yes normal to inspection and Yes no pedal edema Results Labs CBC and Chem 7: 11/25/20 13:27 11/26/20 04:15 Labs: Laboratory Results - last 24 hr 11/25/20 11/25/20 11/25/20 12:04 13:19 13:27 MCV 81.0 MCH 26.6 L MCHC 32.8 RDW 13.8 Plt Count 215 D MPV 10.5 Immature Gran % (Auto) 0.3 Neut % (Auto) 58.5 Lymph % (Auto) 27.6 [place] % (Auto) 9.2 Eos % (Auto) 4.1 H Baso % (Auto) 0.3 Lymph # (Auto) 1.7 [place] # (Auto) 0.6 Eos # (Auto) 0.3 Baso # (Auto) 0.0 Abs Immat Gran (auto) 0.02 Absolute Neuts (auto) 3.6 Absolute Nucleated RBC 0.000 Nucleated RBC % (auto) 0.0 PT INR Anion Gap Estim Creat Clear Calc Estimated GFR POC Glucose 210 H Random Glucose Calcium Magnesium Total Bilirubin Direct Bilirubin AST ALT Alkaline Phosphatase Total Protein Albumin Urine Color YELLOW Urine Appearance HAZY Urine pH 5.5 Ur Specific [place] >= 1.030 H Urine Protein NEG Urine Glucose (UA) 100 H Urine Ketones 5 Urine Blood 3+ H Urine Nitrite NEG Ur Leukocyte Esterase NEG Urine RBC 76-150 H Urine WBC 0 Ur Squamous Epith Cells 1+ Urine Bacteria NONE Urine Mucus 1+ COVID-19 ([facility]) COVID-19 Clin Com 11/25/20 11/25/20 11/25/20 13:27 13:27 16:40 MCV MCH MCHC RDW Plt Count MPV Immature Gran % (Auto) Neut % (Auto) Lymph % (Auto) [place] % (Auto) Eos % (Auto) Baso % (Auto) Lymph # (Auto) [place] # (Auto) Eos # (Auto) Baso # (Auto) Abs Immat Gran (auto) Absolute Neuts (auto) Absolute Nucleated RBC Nucleated RBC % (auto) PT 12.1 INR 1.0 Anion Gap 13 Estim Creat Clear Calc 97.5 Estimated GFR > 60 POC Glucose Random Glucose 224 H Calcium 9.2 Magnesium 1.5 L Total Bilirubin 0.4 Direct Bilirubin 0.2 AST 35 ALT 68 H Alkaline Phosphatase 71 Total Protein 6.8 Albumin 4.1 Urine Color Urine Appearance Urine pH Ur Specific [place] Urine Protein Urine Glucose (UA) Urine Ketones Urine Blood Urine Nitrite Ur Leukocyte Esterase Urine RBC Urine WBC Ur Squamous Epith Cells Urine Bacteria Urine Mucus COVID-19 ([facility]) Negative COVID-19 Clin Com See Note 11/25/20 11/25/20 11/26/20 21:24 22:18 04:15 MCV MCH MCHC RDW Plt Count MPV Immature Gran % (Auto) Neut % (Auto) Lymph % (Auto) [place] % (Auto) Eos % (Auto) Baso % (Auto) Lymph # (Auto) [place] # (Auto) Eos # (Auto) Baso # (Auto) Abs Immat Gran (auto) Absolute Neuts (auto) Absolute Nucleated RBC Nucleated RBC % (auto) PT INR Anion Gap 13 Estim Creat Clear Calc 105.3 Estimated GFR > 60 POC Glucose 124 H 146 H Random Glucose 162 H Calcium 9.4 Magnesium Total Bilirubin Direct Bilirubin AST ALT Alkaline Phosphatase Total Protein Albumin Urine Color Urine Appearance Urine pH Ur Specific [place] Urine Protein Urine Glucose (UA) Urine Ketones Urine Blood Urine Nitrite Ur Leukocyte Esterase Urine RBC Urine WBC Ur Squamous Epith Cells Urine Bacteria Urine Mucus COVID-19 ([facility]) COVID-19 Clin Com Imaging Radiologist's Impressions: Impressions Abdomen/Pelvis CT 11/25/20 12:53 IMPRESSION: 1. Calcific densities in the distal left ureter in the pelvis, having the appearance of multiple calculi clustered together within the ureter extending over a distance approximately 1.8 cm craniocaudal. There is associated mild left hydronephrosis. 2. Left renal 4.7 cm cyst. 3. Stable 2 small calcified granulomas in the liver. 4. Status post cholecystectomy. Assessment and Plan (1) Left nephrolithiasis: Status: Acute (2) Hydronephrosis: Status: Acute (3) Diabetic polyneuropathy associated with type 2 diabetes mellitus: Status: Acute (4) CAD (coronary artery disease): Problem details: Echo October 2019 EF 60-65% June 2017, mild LAD [id number] HCS Status: Acute (5) HTN (hypertension): Qualifiers: Hypertension type: essential hypertension Qualified Code(s): I10 - Essential (primary) hypertension Status: Acute With past medical history of kidney stones presents to the hospital with abdominal pain found to have nephrolithiasis. # nephrolithiasis with mild hydronephrosis - will start patient on IV fluids - urology is consulted - pain control - no urinary infection at this time # hematuria - secondary to nephrolithiasis - no evidence of UTI on UA - will monitor for resolution post resolution of kidney stones # CAD - no chest pain - will hold aspirin in anticipation of urological intervention - resume metoprolol # hypertension - continue home medications # diabetes -will hold p.o. meds - start low-dose sliding scale insulin and continue home insulin # gout - continue allopurinol DVT prophylaxis: SCDs
[2020-11-26] MEDS: Magnesium Sulfate/H2O 2 GM/50 ML PIGGYBACK IV (06:28)
--- NOTE | 2020-11-26 06:40 | P.CNUR_ITS ---
History of Present Illness Consult details Consult date: 11/25/20 Reason for consult: abdominal pain Narrative: Mohit is a pleasant male Well known to Urology Underwent ESWL for left kidney stones in July Recent ultrasound from beginning of November had shown fragments in left kidney It appears that these fragments may have all moved CT scan from yesterday shows collection of small stones at distal portion left ureter It appears these the stones from early November that had been in his kidney He has been admitted a to see if the stones passed in if not will require ureteroscopy to remove the stones Review of Systems Review of Systems: Yes all other systems are reviewed and are negative [facility] Past Medical History Medical History Arthritis Back pain CAD (coronary artery disease) Cervical radiculopathy Depression Diabetic polyneuropathy associated with type 2 diabetes mellitus Dyslipidemia Elevated cholesterol Failed back syndrome of lumbar spine GERD (gastroesophageal reflux disease) History of 2019 novel coronavirus disease (COVID-19) History of ADHD History of fatty infiltration of liver HTN (hypertension) Hypogonadism Nephrolithiasis Obesity (BMI 30-39.9) Obstructive sleep apnea Sleep apnea Tubular adenoma of colon Tubular adenoma of colon Type 2 diabetes mellitus with hyperglycemia Family History Family History Father Diabetes Hypertension Myocardial infarction Mother Diabetes Stroke Alzheimers disease Pacemaker Brother Diabetes Heart problem Sister Myocardial infarction Maternal Grandmother Myocardial infarction Surgical History Surgical History Gynecomastia H/O colonoscopy History of carpal tunnel release History of elbow surgery History of esophagogastroduodenoscopy (EGD) History of kidney surgery Hx laparoscopic cholecystectomy Hx of arthroscopic knee surgery Hx of cardiac catheterization Hx of lumbar discectomy Hx of shoulder surgery Social History Social History Household Members: Family Housing: Apartment Do you presently have visiting nurse or other home services: Yes Alcohol intake: current Alcohol intake frequency: does not drink Smoking Status: Never smoker Smoked in Last 30 Days: No Second Hand Smoke Exposure: No Use of substances other than those prescribed or required for medical reasons: No Currently Displaying Signs/Symptoms of Drug Intoxication Withdrawal: No Have you been hit, kicked, punched, or otherwise hurt by someone within the past year? If so, by whom?: No Do you feel safe in your current relationship?: Yes Is there a partner from a previous relationship who is making you feel unsafe now?: No Are you made to feel afraid or neglected: No Advance Directives: No Advance Directives Information Provided: No Do you have thoughts of harming others: None Do you have a plan to hurt others: No Plan Recently lost weight without trying: Yes Meds Allergies Allergy/AdvReac Type Severity Reaction Status Date / Time morphine [Morphine] Allergy Severe HIVES, Verified 11/25/20 11:55 THROAT CLOSES penicillin G [Penicillin G] Allergy Severe ANAPHYLAXIS Verified 11/25/20 11:55 Sulfa (Sulfonamide Allergy Severe ANAPHYLAXIS Verified 11/25/20 11:55 Antibiotics) [SULFA (SULFONAMIDE ANTIBIOTICS)] Gadolinium-Containing Allergy Intermediate Hives/Rash, Verified 11/25/20 11:55 Contrast Medi dizziness, [Gadolinium-Containing blue spots Agents] Iodinated Contrast Media Allergy Intermediate hives,rash Verified 11/25/20 11:55 tramadol AdvReac Gastrointestinal Verified 11/25/20 11:55 Upset Active Medications: Current Medications Generic Name Dose Route Start Last Admin Trade Name Freq PRN Reason Stop Dose Admin Acetaminophen 650 mg 11/25/20 20:29 Acetaminophen 325 Mg Tablet PO Q6H PRN Pain, Mild (Pain Scale 1-3) Allopurinol 100 mg 11/26/20 09:00 Allopurinol 100 Mg Tablet PO DAILY [facility] Docusate Sodium 100 mg 11/25/20 20:29 Docusate Sodium 100 Mg Capsule PO DAILY PRN Constipation Ezetimibe 10 mg 11/26/20 09:00 Ezetimibe 10 Mg Tablet PO DAILY [facility] Fluoxetine HCl 20 mg 11/26/20 09:00 Fluoxetine Hcl 20 Mg Capsule PO DAILY [facility] Magnesium Sulfate 2 gm in 50 mls @ 25 mls/hr 11/26/20 06:11 11/26/20 06:28 IV 11/26/20 08:10 25 mls/hr ONCE ONE Administration Insulin Glargine 30 unit 11/25/20 21:00 11/25/20 21:37 Insulin Glargine,Hum.Rec.Anlog 100 Unit/Ml 10 Ml Vial SUBCUT Not Given BEDTIME [facility] Insulin Human Lispro 0 unit 11/26/20 07:30 Insulin Lispro 100 Unit/Ml 3 Ml Vial SUBCUT TIDAC [facility] Protocol Insulin Human Lispro 0 unit 11/26/20 07:30 Insulin Lispro 100 Unit/Ml 3 Ml Vial SUBCUT QIDACHS [facility] Protocol Metoprolol Tartrate 50 mg 11/25/20 21:00 11/25/20 21:37 Metoprolol Tartrate 50 Mg Tablet PO 50 mg BID [facility]ITH Administration Protocol Morphine Sulfate 4 mg 11/25/20 20:29 Morphine Sulfate 4 Mg/Ml Cartridge IVPUSH Q4H PRN Pain, Severe (Pain Scale 7-10) Omeprazole 20 mg 11/25/20 21:00 11/25/20 21:36 Omeprazole 20 Mg Capsule.Dr PO 20 mg BID EDITH Administration Ondansetron HCl 4 mg 11/25/20 20:29 Ondansetron Hcl 4 Mg/2 Ml Vial IVPUSH Q8H PRN Nausea and Vomiting Pharmacy Consult 1 each 11/25/20 16:27 Consult Rx Perform Med Rec MISCELLANE ONCE PRN Consult order Pregabalin 150 mg 11/25/20 20:29 Pregabalin 150 Mg Capsule PO BID PRN pain Sodium Chloride 3 ml 11/26/20 00:00 11/26/20 00:01 0.9 % Sodium Chloride Flush 3 Ml Syringe IVFLUSH 3 ml QSHIFT [facility] Administration Tamsulosin HCl 0.4 mg 11/25/20 21:00 11/25/20 21:36 Tamsulosin Hcl 0.4 Mg Capsule PO 0.4 mg BEDTIME [facility] Administration Home Medications Medication Instructions Recorded Confirmed Last Taken Type aspirin 81 mg tablet,delayed 81 mg PO DAILY 07/10/20 11/25/20 Unknown History release insulin aspart U-100 [Novolog 10 - 20 unit SUBCUT TIDAC 11/25/20 11/25/20 Unknown History Flexpen U-100 Insulin] metformin 750 mg PO BIDWM 11/25/20 11/25/20 Unknown History Physical Exam Vital Signs: Vital Signs: Last Vital Signs Temp 97.1 F 11/26/20 03:57 Pulse 52 11/26/20 03:57 Resp 16 11/26/20 03:57 BP 114/60 11/26/20 03:57 Pulse Ox 99 11/26/20 03:57 Body Mass Index 27.1 Const: General: cooperative, healthy appearing, comfortable and no acute distress Nutritional Appearance: average body habitus Orientation/consciousness: oriented to person, oriented to place and oriented to time Eyes: General: appearance normal, both eyes and all related structures Chest: Chest palpation & inspection: normal inspection of the chest Resp: Effort & Inspection: normal respiratory effort Cardio: Rate: regular rate GI: Inspection: Yes normal to inspection Skin: Hair: normal Neuro: General: oriented to person, oriented to place and oriented to time Extrem: General: Yes normal to inspection Results Labs Result diagrams: 11/25/20 13:27 11/26/20 04:15 Labs: Abnormal lab results 11/25/20 11/25/20 11/25/20 Range/Units 12:04 13:19 13:27 Hgb 13.3 L (14.0-18.0) g/dl Hct 40.5 L (42-52) % MCH 26.6 L (27.0-33.0) pg Eos % (Auto) 4.1 H (0-4) % POC Glucose 210 H (60-115) mg/dL Random Glucose (60-115) mg/dL Magnesium (1.6-2.6) mg/dL ALT (0-40) U/L Ur Specific [place] >= 1.030 H (1.005-1.025) Urine Glucose (UA) 100 H (NEG) MG/DL Urine Blood 3+ H (NEG) Urine RBC 76-150 H (0) /HPF 11/25/20 11/25/20 11/25/20 Range/Units 13:27 21:24 22:18 Hgb (14.0-18.0) g/dl Hct (42-52) % MCH (27.0-33.0) pg Eos % (Auto) (0-4) % POC Glucose 124 H 146 H (60-115) mg/dL Random Glucose 224 H (60-115) mg/dL Magnesium 1.5 L (1.6-2.6) mg/dL ALT 68 H (0-40) U/L Ur Specific [place] (1.005-1.025) Urine Glucose (UA) (NEG) MG/DL Urine Blood (NEG) Urine RBC (0) /HPF 11/26/20 Range/Units 04:15 Hgb (14.0-18.0) g/dl Hct (42-52) % MCH (27.0-33.0) pg Eos % (Auto) (0-4) % POC Glucose (60-115) mg/dL Random Glucose 162 H (60-115) mg/dL Magnesium (1.6-2.6) mg/dL ALT (0-40) U/L Ur Specific [place] (1.005-1.025) Urine Glucose (UA) (NEG) MG/DL Urine Blood (NEG) Urine RBC (0) /HPF Short CBC 11/25/20 Range/Units 13:27 WBC 6.1 (4.8-10.8) X10*3/uL Hgb 13.3 L (14.0-18.0) g/dl Hct 40.5 L (42-52) % Plt Count 215 D (160-400) X10*3/uL BMP 11/25/20 11/26/20 13:27 04:15 Sodium 140 140 Potassium 4.0 3.8 Chloride 105 104 Carbon Dioxide 26 27 BUN 16 14 Creatinine 0.95 0.88 Calcium 9.2 9.4 Liver Function 11/25/20 Range/Units 13:27 Total Bilirubin 0.4 (0.0-1.0) mg/dL Direct Bilirubin 0.2 (0.0-0.5) mg/dL AST 35 (5-37) U/L ALT 68 H (0-40) U/L Alkaline Phosphatase 71 (39-117) U/L Albumin 4.1 (3.5-5.0) g/dL Urine 11/25/20 Range/Units 12:04 Urine Color YELLOW Urine Appearance HAZY Urine pH 5.5 (5.0-8.0) Ur Specific [place] >= 1.030 H (1.005-1.025) Urine Protein NEG (NEG-TRACE) MG/DL Urine Glucose (UA) 100 H (NEG) MG/DL All other labs normal. Assessment and Plan (1) Left nephrolithiasis: Status: Acute (2) Hydronephrosis: Status: Acute 24 hour observation for passage of stones Schedule for ureteroscopy laser lithotripsy on Tuesday Keep NPO Procedures Date of Service Date of Service: 11/25/20
[2020-11-26] MEDS: Omeprazole 20 MG CAPSULE.DR PO ×2 (07:40→20:59)
[2020-11-26] MEDS: allopurinoL 100 MG TABLET PO (07:41)
[2020-11-26] MEDS: Ezetimibe 10 MG TABLET PO (07:41)
[2020-11-26] MEDS: FLUoxetine HCl 20 MG CAPSULE PO (07:41)
[2020-11-26] MEDS: Metoprolol Tartrate 50 MG TABLET PO ×2 (07:41→21:00)
--- NOTE | 2020-11-26 08:26 | MHC.CM.PN ---
pt lives c his in their apt. pt reports that he is independent in his care. his can help him should he need it. this will include a ride home at dc. pt denies the need for vna at dc. dc plan is home no svcs. cm to cont. to follow.
[2020-11-26 08:56] LABS: Glucose, Whole Blood 157 mg/dL (60-115)
[2020-11-26] MEDS: Dextrose 5 % and 0.9 % NaCl 1,000 ML 50 ML IVCONT (09:40)
[2020-11-26] MEDS: Ketorolac Tromethamine 15 MG/ML VIAL IV (11:04)
[2020-11-26 12:08] LABS: Glucose, Whole Blood 149 mg/dL (60-115)
--- NOTE | 2020-11-26 12:36 | P.PNIM_ITS ---
Subjective Subjective Date of Service: 11/26/20 Interval History: Patient complaining of persistent left flank pain, has allergy to morphine hives/throat closes, denies fever chills no other acute issues since admission patient NPO. ROS General no headache, no dizziness, no fever chills. CVS no chest pain, no palpitation. Respiratory no cough no sob. Gastrointestinal no nausea no vomiting, no abdominal pain Physical Exam Vital Signs: Vital Signs: Last Vital Signs Temp 97.8 F 11/26/20 07:25 Pulse 60 11/26/20 07:41 Resp 16 11/26/20 07:25 BP 143/75 H 11/26/20 07:25 Pulse Ox 96 11/26/20 07:25 Body Mass Index 27.1 General patient resting comfortably in no acute distress. Neck supple no JVD. CVS regular rate rhythm, Respiratory lungs clear to auscultation, no respiratory distress, no wheeze, no rhonchi. Gastrointestinal abdomen soft, mild left lower quadrant tenderness, bowel sounds audible, no guarding , no rigidity. Extremities no clubbing cyanosis or edema. Neuro nonfocal Skin no rash Objective Data Current Medications Generic Name Dose Route Start Last Admin Trade Name Freq PRN Reason Stop Dose Admin Acetaminophen 650 mg 11/25/20 20:29 Acetaminophen 325 Mg Tablet PO Q6H PRN Pain, Mild (Pain Scale 1-3) Allopurinol 100 mg 11/26/20 09:00 11/26/20 07:41 Allopurinol 100 Mg Tablet PO 100 mg DAILY EDITH Administration Docusate Sodium 100 mg 11/25/20 20:29 Docusate Sodium 100 Mg Capsule PO DAILY PRN Constipation Ezetimibe 10 mg 11/26/20 09:00 11/26/20 07:41 Ezetimibe 10 Mg Tablet PO 10 mg DAILY EDITH Administration Fluoxetine HCl 20 mg 11/26/20 09:00 11/26/20 07:41 Fluoxetine Hcl 20 Mg Capsule PO 20 mg DAILY EDITH Administration Dextrose/Sodium Chloride 1,000 mls @ 50 mls/hr 11/26/20 09:00 11/26/20 09:40 D5ns IVCONT 50 mls/hr .Q20H EDITH Administration Insulin Glargine 30 unit 11/25/20 21:00 11/25/20 21:37 Insulin Glargine,Hum.Rec.Anlog 100 Unit/Ml 10 Ml Vial SUBCUT Not Given BEDTIME [facility] Insulin Human Lispro 0 unit 11/26/20 07:30 11/26/20 12:09 Insulin Lispro 100 Unit/Ml 3 Ml Vial SUBCUT Not Given QIDACHS [facility] Protocol Ketorolac Tromethamine 15 mg 11/26/20 10:29 11/26/20 11:04 Ketorolac Tromethamine 15 Mg/Ml Vial IV 15 mg Q6H PRN Administration pain Metoprolol Tartrate 50 mg 11/25/20 21:00 11/26/20 07:41 Metoprolol Tartrate 50 Mg Tablet PO 50 mg BID [facility] Administration Protocol Omeprazole 20 mg 11/25/20 21:00 11/26/20 07:40 Omeprazole 20 Mg Capsule. PO 20 mg BID [facility] Administration Ondansetron HCl 4 mg 11/25/20 20:29 Ondansetron Hcl 4 Mg/2 Ml Vial IVPUSH Q8H PRN Nausea and Vomiting Pharmacy Consult 1 each 11/25/20 16:27 Consult Rx Perform Med Rec MISCELLANE ONCE PRN Consult order Pregabalin 150 mg 11/25/20 20:29 Pregabalin 150 Mg Capsule PO BID PRN pain Sodium Chloride 3 ml 11/26/20 00:00 11/26/20 07:42 0.9 % Sodium Chloride Flush 3 Ml Syringe IVFLUSH Not Given QSHIFT [facility] Tamsulosin HCl 0.4 mg 11/25/20 21:00 11/25/20 21:36 Tamsulosin Hcl 0.4 Mg Capsule PO 0.4 mg BEDTIME [facility] Administration Labs CBC & Chem 7: 11/25/20 13:27 11/26/20 04:15 Assessment and Plan (1) Left nephrolithiasis: Status: Acute (2) Hydronephrosis: Status: Acute Assessment and Plan: # nephrolithiasis with mild hydronephrosis Persistent left flank pain, seen by Dr. Bernard, patient is scheduled for ureteroscopy to remove stone, continue NPO, start IV fluids Underwent ESWL for left kidney stones in July Will DC IV morphine due to history of allergy,will place patient on IV Toradol, UA unremarkable. # hematuria secondary to nephrolithiasis, no evidence of UTI on UA, hematocrit stable # CAD no chest pain, aspirin on hold in anticipation of urological intervention Continue metoprolol # hypertension BP stable continue home medications # diabetes Blood sugar 149, continue low-dose sliding scale insulin and continue home insulin, hold oral hypoglycemic # gout continue allopurinol DVT prophylaxis: SCDs
[2020-11-26 15:33] LABS: Glucose, Whole Blood 143 mg/dL (60-115)
--- NOTE | 2020-11-26 15:50 | HO.ANESPROP2 ---
HPI - Anesthesia Eval Consult details Narrative: 55year old patient for cysto, retro, ureteroscopy, laser lithotripsy Left, stent placement PMFSH Active Problems Active Problems: All Active Problems (Updated 11/25/20 @ 16:23 by DION Walton) Left nephrolithiasis (Acute) Hydronephrosis (Acute) Cyst of left kidney (Acute) Granuloma of liver (Acute) History of fatty infiltration of liver (Acute) Tubular adenoma of colon (Acute) Hypercalcemia (Acute) Obesity (BMI 30-39.9) (Acute) Dyslipidemia (Acute) Diabetic polyneuropathy associated with type 2 diabetes mellitus (Acute) TMJ syndrome (Acute) Right otitis media with effusion (Acute) SOB (shortness of breath) on exertion (Acute) Atypical chest pain (Acute) CAD (coronary artery disease) (Acute) Depression (Acute) Type 2 diabetes mellitus with hyperglycemia (Acute) GERD (gastroesophageal reflux disease) (Acute) HTN (hypertension) (Acute) Hydroureteronephrosis (Acute) Nephrolithiasis (Acute) BPH w urinary obs/LUTS (Acute) Cervical radiculopathy (Acute) Past Medical History Medical History (Updated 11/26/20 @ 16:14 by Nesha Vázquez) Arthritis Back pain CAD (coronary artery disease) Cervical radiculopathy Depression Diabetic polyneuropathy associated with type 2 diabetes mellitus Dyslipidemia Elevated cholesterol Failed back syndrome of lumbar spine GERD (gastroesophageal reflux disease) History of 2019 novel coronavirus disease (COVID-19) History of ADHD History of fatty infiltration of liver HTN (hypertension) Hypogonadism Nephrolithiasis Obesity (BMI 30-39.9) Obstructive sleep apnea Sleep apnea Tubular adenoma of colon Tubular adenoma of colon Type 2 diabetes mellitus with hyperglycemia Family History Family History Father Diabetes Hypertension Myocardial infarction Mother Diabetes Stroke Alzheimers disease Pacemaker Brother Diabetes Heart problem Sister Myocardial infarction Maternal Grandmother Myocardial infarction Family history of problems with anesthesia: No Surgical History Surgical History Gynecomastia H/O colonoscopy History of carpal tunnel release History of elbow surgery History of esophagogastroduodenoscopy (EGD) History of kidney surgery Hx laparoscopic cholecystectomy Hx of arthroscopic knee surgery Hx of cardiac catheterization Hx of lumbar discectomy Hx of shoulder surgery History of Problems with Anesthesia: No Social History Social History Household Members: Family Housing: Apartment Alcohol intake: current Alcohol intake frequency: does not drink Smoking Status: Never smoker Second Hand Smoke Exposure: No service: No Current occupational status: disabled Meds Allergies Allergy/AdvReac Type Severity Reaction Status Date / Time morphine [Morphine] Allergy Severe HIVES, Verified 11/25/20 11:55 THROAT CLOSES penicillin G [Penicillin G] Allergy Severe ANAPHYLAXIS Verified 11/25/20 11:55 Sulfa (Sulfonamide Allergy Severe ANAPHYLAXIS Verified 11/25/20 11:55 Antibiotics) [SULFA (SULFONAMIDE ANTIBIOTICS)] Gadolinium-Containing Allergy Intermediate Hives/Rash, Verified 11/25/20 11:55 Contrast Medi dizziness, [Gadolinium-Containing blue spots Agents] Iodinated Contrast Media Allergy Intermediate hives,rash Verified 11/25/20 11:55 tramadol AdvReac Gastrointestinal Verified 11/25/20 11:55 Upset Active Medications: Current Medications Generic Name Dose Route Start Last Admin Trade Name Iglesiaq PRN Reason Stop Dose Admin Acetaminophen 650 mg 11/25/20 20:29 Acetaminophen 325 Mg Tablet PO Q6H PRN Pain, Mild (Pain Scale 1-3) Allopurinol 100 mg 11/26/20 09:00 11/26/20 07:41 Allopurinol 100 Mg Tablet PO 100 mg DAILY EDITH Administration Docusate Sodium 100 mg 11/25/20 20:29 Docusate Sodium 100 Mg Capsule PO DAILY PRN Constipation Ezetimibe 10 mg 11/26/20 09:00 11/26/20 07:41 Ezetimibe 10 Mg Tablet PO 10 mg DAILY EDITH Administration Fluoxetine HCl 20 mg 11/26/20 09:00 11/26/20 07:41 Fluoxetine Hcl 20 Mg Capsule PO 20 mg DAILY EDITH Administration Dextrose/Sodium Chloride 1,000 mls @ 50 mls/hr 11/26/20 09:00 11/26/20 09:40 D5ns IVCONT 50 mls/hr .Q20H EDITH Administration Insulin Glargine 30 unit 11/25/20 21:00 11/25/20 21:37 Insulin Glargine,Hum.Rec.Anlog 100 Unit/Ml 10 Ml Vial SUBCUT Not Given BEDTIME [facility] Insulin Human Lispro 0 unit 11/26/20 07:30 11/26/20 12:09 Insulin Lispro 100 Unit/Ml 3 Ml Vial SUBCUT Not Given QIDACHS [facility] Protocol Ketorolac Tromethamine 15 mg 11/26/20 10:29 11/26/20 11:04 Ketorolac Tromethamine 15 Mg/Ml Vial IV 15 mg Q6H PRN Administration pain Metoprolol Tartrate 50 mg 11/25/20 21:00 11/26/20 07:41 Metoprolol Tartrate 50 Mg Tablet PO 50 mg BID EDITH Administration Protocol Omeprazole 20 mg 11/25/20 21:00 11/26/20 07:40 Omeprazole 20 Mg Capsule. PO 20 mg BID EDITH Administration Ondansetron HCl 4 mg 11/25/20 20:29 Ondansetron Hcl 4 Mg/2 Ml Vial IVPUSH Q8H PRN Nausea and Vomiting Pharmacy Consult 1 each 11/25/20 16:27 Consult Rx Perform Med Rec MISCELLANE ONCE PRN Consult order Pregabalin 150 mg 11/25/20 20:29 Pregabalin 150 Mg Capsule PO BID PRN pain Sodium Chloride 3 ml 11/26/20 00:00 11/26/20 07:42 0.9 % Sodium Chloride Flush 3 Ml Syringe IVFLUSH Not Given QSHIFT [facility] Tamsulosin HCl 0.4 mg 11/25/20 21:00 11/25/20 21:36 Tamsulosin Hcl 0.4 Mg Capsule PO 0.4 mg BEDTIME EDITH Administration Home Medications Medication Instructions Recorded Confirmed Last Taken Type aspirin 81 mg tablet,delayed 81 mg PO DAILY 07/10/20 11/25/20 Unknown History release insulin aspart U-100 [Novolog 10 - 20 unit SUBCUT TIDAC 11/25/20 11/25/20 Unknown History Flexpen U-100 Insulin] metformin 750 mg PO BIDWM 11/25/20 11/25/20 Unknown History Exam Exam Date and Time: November 26, 2020 1550 Height,Weight and Vital Signs: Ht 6ft WT 90.718KG Vital Signs Temp Pulse Resp BP Pulse Ox 11/26/20 15:30 97.6 F 59 16 154/90 H 97 11/26/20 12:00 98.2 F 54 16 154/74 H 96 11/26/20 07:41 60 11/26/20 07:25 97.8 F 58 16 143/75 H 96 11/26/20 03:57 97.1 F 52 16 114/60 99 11/25/20 23:29 16 11/25/20 23:23 98.2 F 51 16 156/65 H 98 11/25/20 22:13 97.9 F 56 15 177/97 H 96 11/25/20 21:37 60 165/81 H 11/25/20 19:04 98.0 F 55 18 149/79 H 95 11/25/20 16:51 98.6 F 56 16 167/83 H 97 Pertinent Lab Results Pertinent Lab Results: Laboratory Tests 11/25/20 11/25/20 11/25/20 12:04 13:19 13:27 WBC 6.1 RBC 5.00 Hgb 13.3 L Hct 40.5 L MCV 81.0 MCH 26.6 L MCHC 32.8 RDW 13.8 Plt Count 215 D MPV 10.5 Immature Gran % (Auto) 0.3 Neut % (Auto) 58.5 Lymph % (Auto) 27.6 [place] % (Auto) 9.2 Eos % (Auto) 4.1 H Baso % (Auto) 0.3 Lymph # (Auto) 1.7 [place] # (Auto) 0.6 Eos # (Auto) 0.3 Baso # (Auto) 0.0 Abs Immat Gran (auto) 0.02 Absolute Neuts (auto) 3.6 Absolute Nucleated RBC 0.000 Nucleated RBC % (auto) 0.0 PT INR Sodium Potassium Chloride Carbon Dioxide Anion Gap BUN Creatinine Estim Creat Clear Calc Estimated GFR POC Glucose 210 H Random Glucose Calcium Magnesium Total Bilirubin Direct Bilirubin AST ALT Alkaline Phosphatase Total Protein Albumin Urine Color YELLOW Urine Appearance HAZY Urine pH 5.5 Ur Specific [place] >= 1.030 H Urine Protein NEG Urine Glucose (UA) 100 H Urine Ketones 5 Urine Blood 3+ H Urine Nitrite NEG Ur Leukocyte Esterase NEG Urine RBC 76-150 H Urine WBC 0 Ur Squamous Epith Cells 1+ Urine Bacteria NONE Urine Mucus 1+ COVID-19 (KATE) COVID-19 Clin Com 11/25/20 11/25/20 11/25/20 13:27 13:27 16:40 WBC RBC Hgb Hct MCV MCH MCHC RDW Plt Count MPV Immature Gran % (Auto) Neut % (Auto) Lymph % (Auto) [place] % (Auto) Eos % (Auto) Baso % (Auto) Lymph # (Auto) [place] # (Auto) Eos # (Auto) Baso # (Auto) Abs Immat Gran (auto) Absolute Neuts (auto) Absolute Nucleated RBC Nucleated RBC % (auto) PT 12.1 INR 1.0 Sodium 140 Potassium 4.0 Chloride 105 Carbon Dioxide 26 Anion Gap 13 BUN 16 Creatinine 0.95 Estim Creat Clear Calc 97.5 Estimated GFR > 60 POC Glucose Random Glucose 224 H Calcium 9.2 Magnesium 1.5 L Total Bilirubin 0.4 Direct Bilirubin 0.2 AST 35 ALT 68 H Alkaline Phosphatase 71 Total Protein 6.8 Albumin 4.1 Urine Color Urine Appearance Urine pH Ur Specific [place] Urine Protein Urine Glucose (UA) Urine Ketones Urine Blood Urine Nitrite Ur Leukocyte Esterase Urine RBC Urine WBC Ur Squamous Epith Cells Urine Bacteria Urine Mucus COVID-19 (KATE) Negative COVID-19 Clin Com See Note 11/25/20 11/25/20 11/26/20 21:24 22:18 04:15 WBC RBC Hgb Hct MCV MCH MCHC RDW Plt Count MPV Immature Gran % (Auto) Neut % (Auto) Lymph % (Auto) [place] % (Auto) Eos % (Auto) Baso % (Auto) Lymph # (Auto) [place] # (Auto) Eos # (Auto) Baso # (Auto) Abs Immat Gran (auto) Absolute Neuts (auto) Absolute Nucleated RBC Nucleated RBC % (auto) PT INR Sodium 140 Potassium 3.8 Chloride 104 Carbon Dioxide 27 Anion Gap 13 BUN 14 Creatinine 0.88 Estim Creat Clear Calc 105.3 Estimated GFR > 60 POC Glucose 124 H 146 H Random Glucose 162 H Calcium 9.4 Magnesium Total Bilirubin Direct Bilirubin AST ALT Alkaline Phosphatase Total Protein Albumin Urine Color Urine Appearance Urine pH Ur Specific [place] Urine Protein Urine Glucose (UA) Urine Ketones Urine Blood Urine Nitrite Ur Leukocyte Esterase Urine RBC Urine WBC Ur Squamous Epith Cells Urine Bacteria Urine Mucus COVID-19 (KATE) COVID-19 Clin Com 11/26/20 11/26/20 11/26/20 07:27 11:41 15:29 WBC RBC Hgb Hct MCV MCH MCHC RDW Plt Count MPV Immature Gran % (Auto) Neut % (Auto) Lymph % (Auto) [place] % (Auto) Eos % (Auto) Baso % (Auto) Lymph # (Auto) [place] # (Auto) Eos # (Auto) Baso # (Auto) Abs Immat Gran (auto) Absolute Neuts (auto) Absolute Nucleated RBC Nucleated RBC % (auto) PT INR Sodium Potassium Chloride Carbon Dioxide Anion Gap BUN Creatinine Estim Creat Clear Calc Estimated GFR POC Glucose 157 H 149 H 143 H Random Glucose Calcium Magnesium Total Bilirubin Direct Bilirubin AST ALT Alkaline Phosphatase Total Protein Albumin Urine Color Urine Appearance Urine pH Ur Specific [place] Urine Protein Urine Glucose (UA) Urine Ketones Urine Blood Urine Nitrite Ur Leukocyte Esterase Urine RBC Urine WBC Ur Squamous Epith Cells Urine Bacteria Urine Mucus COVID-19 (KATE) COVID-19 Clin Com Airway Mallampati Class: III TM Dist: >3cm Neck ROM: Full Heart: RRR Lungs: CTAB Assessment and Plan Assessment Anesthesia Assessment: Anesthesia Plan Discussed and Chart Reviewed Final Anesthetic Review NPO: Yes ASA Class: III and Emergency Final Preanesthetic Review: No Changes in Pt Med Stat, Meds/Allgs Chart Reviewed, Consent Obtained/Reviewed and Anes Risks/Benef Reviewed Patient Risk: Intermediate Procedure Risk: Intermediate Anesthetic Plan Anesthetic Plan: GA Disposition: Standard PACU
[2020-11-26] MEDS: levoFLOXacin 500 MG TABLET PO (16:32)
--- NOTE | 2020-11-26 17:04 | MHC.SHP ---
Pre-Procedural Eval Section A The patient is an INPATIENT: Yes Changes since office visit: No Cold of Flu in the past 2 weeks, No New Medical Problems, No Changes in Medication and No Patient answered all questions The History & Physical has been completed within 30 days and I have reviewed it.: Yes Section B Chief Complaint: Obstructing urinary calculi Allergies: Allergies Allergy/AdvReac Type Severity Reaction Status Date / Time morphine [Morphine] Allergy Severe HIVES, Verified 11/25/20 11:55 THROAT CLOSES penicillin G [Penicillin G] Allergy Severe ANAPHYLAXIS Verified 11/25/20 11:55 Sulfa (Sulfonamide Allergy Severe ANAPHYLAXIS Verified 11/25/20 11:55 Antibiotics) [SULFA (SULFONAMIDE ANTIBIOTICS)] Gadolinium-Containing Allergy Intermediate Hives/Rash, Verified 11/25/20 11:55 Contrast Medi dizziness, [Gadolinium-Containing blue spots Agents] Iodinated Contrast Media Allergy Intermediate hives,rash Verified 11/25/20 11:55 tramadol AdvReac Gastrointestinal Verified 11/25/20 11:55 Upset Plan Diagnosis/Plan: Unchanged I have reviewed the history and physical and performed a pertinent physical examination on my patient. No changes have occurred unless specified. Left retrograde, ureteroscopy, laser lithotripsy stent placement
--- NOTE | 2020-11-26 17:05 | P.BOP_ITS ---
Brief Operative Note Date of Service: 11/26/20 Pre-op diagnosis: Distal ureteric stone Post-op diagnosis: same Procedure: 1. Cystoscopy left retrograde 2. Dilatation left ureteric orifice under fluoroscopy 3. Left ureteroscopy laser lithotripsy stone basketing Left stent placement Implants: Six Macedonian by 24 cm double-J ureteric stent Surgeon: Clement Bernard MD Anesthesia: GLMA Estimated blood loss (mL): 0 Pathology: other (Stones) Condition: stable Disposition: same day
--- NOTE | 2020-11-26 17:06 | P.OP_ITS ---
Operative Note Operative Note Date of Service: 11/26/20 Narrative: PreOperative Diagnosis: Distal left ureteric stone Post Operative Diagnosis: Distal left ureteric stone Procedure: - cystoscopy, retrograde - left dilatation of ureteric orifice under fluoroscopy - left ureteroscopy, laser lithotripsy, stone basketing - left stent placement Surgeon: Dr Clement Bernard Anesthesia: General Indications for procedure: This is a 55-year-old male. Known to Urology. Had ESWL in July. Had imaging from early November that showed fragments in the right kidney. Presented to the emergency room with flank pain. Imaging showed distal ureteric stone. Has failed to pass. Plan for intervention. Procedure: After informed consent was verified patient was brought to the operating placed in supine position. Anesthesia was administered per protocol. Patient was placed in modified dorsal lithotomy position and prepped and draped in a sterile fashion. Safety pause time-out and side of surgery confirmed. Antibiotics confirmed. Twenty-two Danish cystoscope was placed per urethra. No abnormalities noted of anterior posterior urethra. Ureteric orifices normal position. The left ureteric orifice was cannulated retrograde examination performed. Filling defect seen with stones distally. Of note his ureter was quite narrowed in caliber and this has likely contributed to failure of the small fragment pass. A Sensor guidewire was placed. Gaetano dilator was used. A rigid ureteral scope was placed alongside the wire and the stone encountered. Laser lithotripsy was performed with a holmium laser in a 360 mm laser. The stone was broken into small pieces. A flat wire basket was used for removal. The rigid ureteroscope was removed. The regular cystoscope was back loaded over the Sensor wire and a 6 Danish by 24 cm double-J ureteric catheter was placed under combination of direct and fluoroscopic visualization. The bladder was emptied He tolerated procedure well and was transferred in stable condition to the recovery area. Pathology: Stones Drains: Left 6 Danish by 24 cm stent double-J
[2020-11-26] MEDS: Lactated Ringers 1,000 ML 100 ML IVCONT (18:42)
[2020-11-26] MEDS: Phenazopyridine HCL 100 MG TABLET PO (18:42)
[2020-11-26 20:54] LABS: Glucose, Whole Blood 192 mg/dL (60-115)
[2020-11-26] MEDS: Insulin Lispro 100 UNIT/ML 3 ML VIAL SUBCUT (20:58)
[2020-11-26] MEDS: Tamsulosin HCL 0.4 MG CAPSULE PO (20:59)
[2020-11-26] MEDS: Insulin Glargine,Hum.rec.anlog 100 UNIT/ML 10 ML VIAL 30 UNIT SUBCUT (20:59)
[2020-11-27] MEDS: Lactated Ringers 1,000 ML 100 ML IVCONT (03:48)
[2020-11-27 06:00] VITALS: BP 142/75; PULSE 60; RESP 18; TEMP 36.4; O2SAT 92
[2020-11-27] MEDS: Insulin Lispro 100 UNIT/ML 3 ML VIAL SUBCUT (08:16)
[2020-11-27] MEDS: allopurinoL 100 MG TABLET PO (08:17)
[2020-11-27] MEDS: Ezetimibe 10 MG TABLET PO (08:17)
[2020-11-27] MEDS: Omeprazole 20 MG CAPSULE.DR PO (08:17)
[2020-11-27] MEDS: FLUoxetine HCl 20 MG CAPSULE PO (08:17)
[2020-11-27] MEDS: Metoprolol Tartrate 50 MG TABLET PO (08:17)
[2020-11-27 08:54] LABS: Glucose, Whole Blood 165 mg/dL (60-115)
--- NOTE | 2020-11-27 09:05 | HO.POSTANES ---
Post Anesthesia Evaluation Post Anesthesia Evaluation Vital Signs: Vital Signs Temp Pulse Resp BP Pulse Ox 11/27/20 06:00 97.6 F 60 18 142/75 H 92 11/26/20 22:15 16 11/26/20 22:00 97.7 F 64 18 147/81 H 94 Anesthesia: General Mental Status: Awake Pain Control: Satisfactory Nausea/Vomiting: None Hydration: Adequate Anesthesia-Related Issues: No Anes. Related Issues
--- NOTE | 2020-11-27 10:51 | PM.DS ---
DS: Providers Provider Date of Service: 11/27/20 Date of admission: 11/25/20 20:11 Primary care physician: Price Jose MD Consults: 11/26/20 06:14 Consult to Urology Routine Consulting Provider: Clement Bernard Reason for consultation: nephrolithiasis Has provider been notified: No DS: Diagnosis Discharge Diagnosis (1) Left nephrolithiasis: Status: Acute Problem details: Left stent placement with dilatation of the left ureter Dr. Bernard November 2020 (2) Hydronephrosis: Status: Acute DS: Medications Discharge Medications Home Medications: Home Medications Medication Instructions Recorded Confirmed aspirin 81 mg tablet,delayed 81 mg PO DAILY 07/10/20 11/25/20 release insulin aspart U-100 [Novolog 10 - 20 unit SUBCUT TIDAC 11/25/20 11/25/20 Flexpen U-100 Insulin] metformin 750 mg PO BIDWM 11/25/20 11/25/20 Previous Rx's Medication Instructions Recorded ezetimibe 10 mg tablet 10 mg PO DAILY #90 tab 07/17/20 tamsulosin 0.4 mg PO BEDTIME #14 cap 08/06/20 omeprazole 20 mg capsule,delayed 20 mg PO BID 30 Days #60 cap 08/27/20 release metoprolol tartrate 50 mg tablet 50 mg PO BID #180 tab 09/12/20 allopurinol 100 mg tablet 100 mg PO DAILY #90 tab 10/02/20 pyridoxine (vitamin B6) 100 mg 100 mg PO DAILY #90 tab 10/02/20 tablet fluoxetine 20 mg capsule 20 mg PO DAILY #30 cap 10/16/20 pregabalin 150 mg capsule 150 mg PO BID PRN 30 Days #60 cap 10/28/20 naproxen 500 mg tablet 500 mg PO BID PRN #30 tab 10/30/20 pen needle, diabetic 32 gauge x #150 ea 11/03/20 insulin glargine 100 unit/mL (3 30 unit SUBCUT QPM 30 Days #15 ml 11/10/20 mL) subcutaneous pen cholecalciferol (vitamin D3) 50 50 mcg PO DAILY 30 Days #30 cap 11/26/20 mcg (2,000 unit) capsule DS: Summary Hospital Course Hospital Course: Chief complaint Chief Complaint: Abdominal pain This is a 55-year-old male with past medical history of CAD, hypertension, hydroureteronephrosis secondary to nephrolithiasis, diabetes, depression, HLD, who presents to hospital with complaints of left upper quadrant abdominal pain as well as flank pain radiating to the groin. Patient reports that he has been having trouble with his left kidney since his had stone removal surgery in August. But his current pain started 2 days ago, 07/12, associated with nausea and vomiting and diarrhea, diarrhea is nonbloody. He has hematuria as well as discomfort on peeing with no urgency frequency or dysuria. He also was concerned about his sugar that was in the 400s. He called his urologist and was asked come to the hospital. He otherwise denies any headache, change in vision, chest pain, no shortness of breath, no lower extremity edema. Patient hemodynamically stable with no significant abnormal vitals. Labs remarkable for hemoglobin of 13.3, otherwise within normal range. magnesium level of 1.5. UA positive for urine blood as well as RBC. COVID-[address] shows calcific densities in the distal left ureter in the pelvis. Associated mild left hydronephrosis. Hospital course # nephrolithiasis with mild left hydronephrosis patient underwent cystoscopy with laser lithotripsy and placement of stent left flank pain significantly improved patient is tolerating diet therefore is being discharged home with recommendation to follow-up with Dr. Bernard in 2 weeks, hematuria resolved was likely due to nephrolithiasis slight drop in hematocrit but stable. # CAD patient had no chest pain, recommend to continue home medication aspirin and metoprolol # hypertension BP stable recommend to continue home medications # diabetes Blood sugar 149, patient is on Lantus pre meal insulin and metformin that has been resumed recommended to follow diabetic diet and blood sugar closely # gout recommend to continue allopurinol Time Spent with Patient Time attestation: Total time spent providing and/or coordinating discharge services: Discharge coordination time: Greater than 30 minutes Physical Exam Vital Signs: Vital Signs: Last Vital Signs Temp 97.6 F 11/27/20 06:00 Pulse 60 11/27/20 06:00 Resp 18 11/27/20 06:00 BP 142/75 H 11/27/20 06:00 Pulse Ox 92 11/27/20 06:00 Body Mass Index 27.1 General patient resting comfortably in no acute distress. Neck supple no JVD. CVS regular rate rhythm, Respiratory lungs clear to auscultation, no respiratory distress, no wheeze, no rhonchi. Gastrointestinal abdomen soft, bowel sounds audible, no guarding , no rigidity. Extremities no clubbing, cyanosis or edema. No CVA tenderness Neuro nonfocal Skin no rash DS: Data Data Completed and Pending Pending studies at discharge: Pending at discharge 11/26/20 17:16 Surgical [PTH] Routine Labs on day of discharge: Laboratory Results - last 24 hr 11/26/20 11/26/20 11/26/20 11:41 15:29 20:43 POC Glucose 149 H 143 H 192 H 11/27/20 07:19 POC Glucose 165 H Discharge Plan Discharge Patient Disposition: Home, Self-Care Referrals: Po,Price Casas MD [Primary Care Provider] - Discharge Medications: Continued ezetimibe 10 mg tablet 10 mg PO DAILY Qty: 90 RF: 2 omeprazole 20 mg capsule,delayed release(DR/EC) 20 mg PO BID 30 Days Qty: 60 RF: 3 metoprolol tartrate 50 mg tablet 50 mg PO BID Qty: 180 RF: 1 fluoxetine 20 mg capsule 20 mg PO DAILY Qty: 30 RF: 5 pregabalin 150 mg capsule 150 mg PO BID PRN (Reason: pain) 30 Days Qty: 60 RF: 2 cholecalciferol (vitamin D3) 50 mcg (2,000 unit) capsule 50 mcg PO DAILY 30 Days Qty: 30 RF: 6 tamsulosin 0.4 mg capsule 0.4 mg PO BEDTIME Qty: 14 RF: 0 insulin aspart U-100 [Novolog Flexpen U-100 Insulin] 100 unit/mL (3 mL) insulin pen 10 - 20 unit subcut TIDAC RF: 0 metformin 750 mg tablet extended release 24 hr 750 mg PO BIDWM RF: 0 naproxen [Naprosyn] 500 mg tablet 500 mg PO BID PRN (Reason: pain) Qty: 30 RF: 3 pyridoxine (vitamin B6) 100 mg tablet 100 mg PO DAILY Qty: 90 RF: 1 allopurinol 100 mg tablet 100 mg PO DAILY Qty: 90 RF: 3 aspirin 81 mg tablet,delayed release (DR/EC) 81 mg PO DAILY RF: 0 Lantus Solostar U-100 Insulin 100 unit/mL (3 mL) insulin pen 30 unit subcut QPM 30 Days Qty: 15 RF: 5 No Action (DME) pen needle, diabetic [BD Terri 2nd Gen Pen Needle] 32 gauge x 5/32 needle See Rx Instructions .MEDSUPPLY Qty: 150 RF: 4 Discharge Orders: Discharge Order (Routine); Ordered 11/27/20 Ordered By: Dian Heard Diet: diabetic diet Activity on Discharge: As tolerated Stand Alone Forms: Patient Portal Discharge page Care Plan Goals: Outpatient follow-up with Dr. Bernard 2 weeks Health Concerns: Nephrolithiasis/diabetes mellitus follow diabetic diet, hold pre meal insulin if blood sugar running low Plan of Treatment: Follow-up with primary care physician
--- NOTE | 2020-11-27 11:24 | MHC.CM.PN ---
PATIENT IS DISCHARGED HOME WITH NO NEED FOR SERVICES. TO TRANSPORT. RN AWARE OF PLAN.
[2020-12-01 02:32] LABS: Stone Source KIDNEY
== END 2020-11-27 11:54 | disposition home or self-care (01) | DRG 661 ==
LOC: HO.ED 17:02 → HO.S3 21:10
PROVIDERS: Physician Assistant Medical; Urology; Admitting Provider Internal Medicine; Emergency Provider Emergency Medicine; PCP Internal Medicine; Visit Provider Hospitalist
PROC: 0T778DZ Dilation of Left Ureter with Intraluminal Device, Via Natural or Artificial Opening Endoscopic (ICD-10-PCS; principal; 2020-11-26 16:00)
DX: N13.2 Hydronephrosis with renal and ureteral calculous obstruction (principal); I25.10 Atherosclerotic heart disease of native coronary artery without angina pectoris; E11.42 Type 2 diabetes mellitus with diabetic polyneuropathy; K21.9 Gastro-esophageal reflux disease without esophagitis; M96.1 Postlaminectomy syndrome, not elsewhere classified; M10.9 Gout, unspecified; I10 Essential (primary) hypertension; Z20.822 Contact with and (suspected) exposure to COVID-19; R31.9 Hematuria, unspecified; Z87.442 Personal history of urinary calculi; Z86.16 Personal history of COVID-19; Z88.0 Allergy status to penicillin; Z88.2 Allergy status to sulfonamides; Z88.5 Allergy status to narcotic agent; Z79.1 Long term (current) use of non-steroidal anti-inflammatories (NSAID); Z79.4 Long term (current) use of insulin; Z79.84 Long term (current) use of oral hypoglycemic drugs; Z79.899 Other long term (current) drug therapy
CPT/HCPCS: 36415; 74176; 80048; 80076; 81001; 82365; 82947; 83735; 85025; 85610; 87635; 88300; 94660; 96361; 96374; 96375; 99285; 99291; C1769; C2617; J1100; J1170; J1885; J2250; J2405; J3010; J3475; Q9967

== ENCOUNTER 2020-12-02 14:54 | Outpatient (REF) | payer OTHER, SELFPAY ==
[2020-12-02 17:57] LABS: Calcium 9.2 mg/dL (8.4-10.2); Estimated Glomerular Filt Rate > 60; Magnesium 1.7 mg/dL (1.6-2.6); Phosphorus 4.1 mg/dL (2.7-4.5); Uric Acid 4.3 mg/dL (3.4-7.0)
[2020-12-02 18:19] LABS: Vitamin D 25-OH Total 13.7 ng/mL (>30)
[2020-12-04 12:01] LABS: Calcium (PTHI) 9.7 mg/dL (8.6-10.3); PTHI 57 pg/mL (14-64)
== END 2020-12-02 14:55 | disposition home or self-care (01) ==
LOC: HO.LAB 14:54
PROVIDERS: PCP Internal Medicine; Visit Provider Urology
DX: N20.0 Calculus of kidney (principal); N26.1 Atrophy of kidney (terminal); E83.52 Hypercalcemia; Z87.442 Personal history of urinary calculi
CPT/HCPCS: 52310; 36415; 82306; 82310; 82565; 83735; 83970; 84100; 84550; 99212

== ENCOUNTER 2020-12-08 15:44 | Outpatient (REF) | payer OTHER, SELFPAY ==
--- NOTE | ~2020-12-08 | US_ITS ---
EXAMINATION: US RETROPERITONEAL LIMITED (RENAL ONLY) CLINICAL INFORMATION: Renal stone. COMPARISON: CT abdomen pelvis 11/25/2020. Ultrasound renal 11/14/2020. X-ray KUB 08/06/2020. Ultrasound renal 07/15/2020. TECHNIQUE: Real-time imaging of the kidneys. FINDINGS: RIGHT KIDNEY: 12.6 x 5.0 x 5.6 cm (SAG x AP x TRV). The kidney is normal in size, contour, and echogenicity. Renal cortical thickness is normal. No calculi or focal parenchymal lesions. No hydronephrosis. A small echogenic focus is seen in the midpole. LEFT KIDNEY: 15.2 x 7.3 x 6.2 cm (SAG x AP x TRV). The kidney is normal in size, contour, and echogenicity. Renal cortical thickness is normal. No renal calculi or hydronephrosis. There is an anechoic cyst in the mid/lower pole measuring 4.2 x 3.7 x 4.5 cm. There are multiple echogenic foci, especially in midpole measuring 0.4 cm. 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 US/US renal BI IMPRESSION: Bilateral echogenic foci but no echogenic calculi or hydronephrosis. 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
== END 2020-12-08 15:45 | disposition home or self-care (01) ==
LOC: HO.US 15:44
PROVIDERS: Visit Provider Urology
DX: N20.0 Calculus of kidney (principal)
CPT/HCPCS: 76775

== ENCOUNTER → 2021-01-13 14:39 | Outpatient (BNVA) | payer OTHER, SELFPAY | PROVIDERS: PCP Internal Medicine; Visit Provider Urology | DX: Z13.89 Encounter for screening for other disorder (principal) | CPT/HCPCS: 99212 ==

== ENCOUNTER → 2021-01-14 08:14 | Outpatient (BNVA) | payer OTHER, SELFPAY | PROVIDERS: PCP Internal Medicine; Referring Provider Internal Medicine; Visit Provider Internal Medicine Endocrinology, Diabetes & Metabolism | DX: E11.65 Type 2 diabetes mellitus with hyperglycemia (principal); E11.42 Type 2 diabetes mellitus with diabetic polyneuropathy; Z79.4 Long term (current) use of insulin; E78.5 Hyperlipidemia, unspecified; I10 Essential (primary) hypertension; E66.9 Obesity, unspecified | CPT/HCPCS: 82947; 99212 ==

== ENCOUNTER → 2021-03-25 12:47 | Outpatient (BNVA) | payer OTHER, SELFPAY | PROVIDERS: PCP Internal Medicine; Visit Provider Physician Assistant | CPT/HCPCS: Q3014 ==

== ENCOUNTER 2021-04-10 07:45 | Outpatient (REF) | payer OTHER, SELFPAY ==
--- NOTE | ~2021-04-10 | US_ITS ---
EXAMINATION: US RETROPERITONEAL LIMITED (RENAL ONLY) CLINICAL INFORMATION: Calculus of kidney. COMPARISON: Bilateral renal ultrasound dated 12/08/2020 and 11/14/2020. CT abdomen and pelvis without contrast dated 11/25/2020. KUB dated 08/06/2020. TECHNIQUE: Real-time imaging of the kidneys. FINDINGS: RIGHT KIDNEY: 13.6 x 6.4 x 6.4 cm (SAG x AP x TRV). The kidney is normal in size, contour, and echogenicity. Renal cortical thickness is normal. No renal calculi or hydronephrosis. LEFT KIDNEY: 16.2 x 5.7 x 5.9 cm (SAG x AP x TRV). The kidney is normal in size, contour, and echogenicity. Renal cortical thickness is normal. There is a 4.1 x 2.9 x 3.5 cm cyst in the midpole. No renal calculi or hydronephrosis. US/US renal BI IMPRESSION: No stone seen. Left renal cyst.
== END 2021-04-10 07:46 | disposition home or self-care (01) ==
LOC: HO.US 07:45
PROVIDERS: PCP Internal Medicine; Visit Provider Urology
DX: N20.0 Calculus of kidney (principal)
CPT/HCPCS: 76775

== ENCOUNTER 2021-04-24 09:48 | Outpatient (REF) | payer OTHER, SELFPAY ==
--- NOTE | ~2021-04-24 | XR_ITS ---
EXAMINATION: XR CHEST CLINICAL INFORMATION: Pneumonia COMPARISON: Previous chest x-ray most recent September 2018 TECHNIQUE: 2 views of the chest were obtained. FINDINGS: The cardiac and mediastinal contours are normal. There is a faint airspace disease in the left upper lobe suggestive of pneumonitis or small pneumonia. The lungs are otherwise clear. There is no pleural effusion or pneumothorax. Bony structures are unremarkable. XR/XR chest 2V IMPRESSION: Left upper lobe pneumonitis or small pneumonia. Chest x-ray follow-up to ensure resolution recommended.
[2021-04-24 10:42] LABS: MANUAL DIFF FLAG NO
[2021-04-24 10:57] LABS: Basophils Percent Auto 0.5 % (0-2); Eosinophils Absolute Auto 0.2 X10*3/uL (0.0-0.4); Eosinophils Percent Auto 5.7 % (0-4); Hematocrit 43.5 % (42-52); Hemoglobin 13.5 g/dl (14.0-18.0); Imm Gran Abs Auto 0.02 X10*3/uL (0.00-0.03); Imm Gran Pct Auto 0.5 % (0.0-0.4); Lymphocytes Absolute Auto 1.2 X10*3/uL (1.2-4.9); Lymphocytes Percent Auto 30.1 % (20-40); Mean Corpuscular Hemoglobin 25.2 pg (27.0-33.0); Mean Corpuscular Volume 81.2 fL (80-98); Monocytes Absolute Auto 0.5 X10*3/uL (0.1-1.2); Monocytes Percent Auto 11.9 % (2-11); Neutrophils Absolute Auto 2.1 X10*3/uL (2.0-8.3); Neutrophils Percent Auto 51.3 % (45-73); Platelet Count 279 X10*3/uL (160-400); Red Blood Count 5.36 X10*6/uL (4.60-5.80); Red Cell Distribution Width 14.6 % (11.0-16.0); White Blood Count 4.1 X10*3/uL (4.8-10.8)
[2021-04-24 11:21] LABS: Alanine Aminotransferase 65 U/L (0-40); Albumin Level 4.2 g/dL (3.5-5.0); Alkaline Phosphatase 73 U/L (39-117); Anion Gap 15 (12-20); Aspartate Amino Transferase 50 U/L (5-37); Bilirubin Total 0.4 mg/dL (0.0-1.0); Blood Urea Nitrogen 14 mg/dL (9-16); Calcium 9.7 mg/dL (8.4-10.2); Carbon Dioxide 24 mmol/L (22-29); Chloride 107 mmol/L (96-108); Estimated Glomerular Filt Rate > 60; Glucose Random 171 mg/dL (60-115); Potassium 4.2 mmol/L (3.3-5.1); Sodium 142 mmol/L (135-145); Total Protein 7.6 g/dL (6.5-8.0)
[2021-04-24 11:42] LABS: Free T4 (Free Thyroxine) 1.25 ng/dL (0.71-1.85); Thyroid Stimulating Hormone 1.46 uIU/mL (0.32-4.0)
== END 2021-04-24 09:49 | disposition home or self-care (01) ==
LOC: HO.XRAY 09:48
PROVIDERS: PCP Internal Medicine; Referring Provider Urology; Visit Provider Internal Medicine
DX: J18.9 Pneumonia, unspecified organism (principal)
CPT/HCPCS: 36415; 71046; 80053; 84439; 84443; 85025

== ENCOUNTER 2021-05-13 08:30 | Outpatient (REF) | payer OTHER, SELFPAY ==
--- NOTE | 2021-05-13 09:00 | PFT_ITS ---
Forced vital capacity is slightly decreased. FEV1 and [id number] are normal. MVV slightly decreased. Post bronchodilator therapy, no significant change. Total lung capacity and residual volume are normal. Diffusion capacity is normal. CONCLUSION: Possible mild restrictive pulmonary disorder or decreased FVC and MVV may be due to muscular weakness or poor effort. No significant obstructive or restrictive disorder are noted and no significant response to bronchodilator therapy. Clinical correlation is recommended. MD LADONNA Malone/WALTER / [id number]
== END 2021-05-13 08:31 | disposition home or self-care (01) ==
LOC: HO.RESP 08:30
PROVIDERS: PCP Internal Medicine; Visit Provider Internal Medicine
DX: R06.02 Shortness of breath (principal)
CPT/HCPCS: 94060; 94727; 94729

== ENCOUNTER → 2021-05-13 13:36 | Outpatient (REF) | payer OTHER, SELFPAY | LOC: HO.SL 13:36 | PROVIDERS: PCP Internal Medicine; Visit Provider Internal Medicine | DX: G47.33 Obstructive sleep apnea (adult) (pediatric) (principal); J18.9 Pneumonia, unspecified organism | CPT/HCPCS: 95806 ==

== ENCOUNTER 2021-05-15 06:25 | Day surgery (SDC) | payer OTHER, SELFPAY ==
[2021-05-07 11:09] VITALS: BMI 34.7
[2021-05-15 06:46] VITALS: BP 135/79; PULSE 69; RESP 16; TEMP 36.4; O2SAT 97
[2021-05-15 07:07] LABS: Glucose, Whole Blood 116 mg/dL (60-115)
--- NOTE | 2021-05-15 07:17 | MHC.SHP ---
Pre-Procedural Eval Section A Date of Service: 05/15/21 The patient is an INPATIENT: No The History & Physical has been completed within 30 days and I have reviewed it.: No Section B Chief Complaint: Colon Cancer screening, history of colon polyps Details of Present Illness: Colon Cancer screening, history of colon polyps Relevant Family History (Specify if Yes): No Relevant Social History: None Present Medications: see Short Stay Collaborative assessment Medical History: Significant History (Arthritis Back pain CAD (coronary artery disease) Cervical radiculopathy Depression Diabetic polyneuropathy associated with type 2 diabetes mellitus Dyslipidemia Elevated cholesterol Failed back syndrome of lumbar spine GERD (gastroesophageal reflux disease) History of 2019 novel coronavirus disease) History of Previous Operations: Relevant previous surgery/procedure and date(s) (H/O colonoscopy History of carpal tunnel release History of elbow surgery History of esophagogastroduodenoscopy (EGD) History of kidney surgery Hx laparoscopic cholecystectomy Hx of arthroscopic knee surgery Hx of cardiac catheterization Hx of lumbar discectomy Hx of shoulder surgery) Allergies: Allergies Allergy/AdvReac Type Severity Reaction Status Date / Time morphine [Morphine] Allergy Severe HIVES, Verified 05/15/21 06:35 THROAT CLOSES penicillin G [Penicillin G] Allergy Severe ANAPHYLAXIS Verified 05/15/21 06:35 Sulfa (Sulfonamide Allergy Severe ANAPHYLAXIS Verified 05/15/21 06:35 Antibiotics) [SULFA (SULFONAMIDE ANTIBIOTICS)] Gadolinium-Containing Allergy Intermediate Hives/Rash, Verified 05/15/21 06:35 Contrast Medi dizziness, [Gadolinium-Containing blue spots Agents] Iodinated Contrast Media Allergy Intermediate hives,rash Verified 05/15/21 06:35 tramadol AdvReac Gastrointestinal Verified 05/15/21 06:35 Upset Review of Systems Sugical H&P ROS: Negative: Constitution, Cardiovascular, Respiratory and Gastrointestinal Exam Surgical H&P Exam: Normal: Heart, Normal: Lungs, Normal: Extremities and Normal: Abdomen Plan Diagnosis/Plan: Unchanged I have reviewed the history and physical and performed a pertinent physical examination on my patient. No changes have occurred unless specified.
[2021-05-15] MEDS: Lactated Ringers 1,000 ML 50 ML IVCONT (07:35)
--- NOTE | 2021-05-15 07:41 | P.CONAN_ITS ---
HPI - Anesthesia Eval Consult details Narrative: Surveillance [facility] Active Problems Active Problems: All Active Problems (Updated 05/07/21 @ 11:13 by Gracie Leroy) Hydroureteronephrosis (Acute) Nephrolithiasis (Acute) BPH w urinary obs/LUTS (Acute) Atypical chest pain (Acute) SOB (shortness of breath) on exertion (Acute) Right otitis media with effusion (Acute) TMJ syndrome (Acute) Hypercalcemia (Acute) Left nephrolithiasis (Acute) Hydronephrosis (Acute) Paronychia (Acute) Tubular adenoma (Acute) NAFLD (nonalcoholic fatty liver disease) (Acute) Annual physical exam (Acute) SOB (shortness of breath) (Acute) Community acquired pneumonia (Acute) Obstructive sleep apnea (Acute) Sleep apnea (Acute) Vitamin D deficiency (Acute) History of fatty infiltration of liver (Acute) Obesity (BMI 30-39.9) (Acute) Dyslipidemia (Acute) Diabetic polyneuropathy associated with type 2 diabetes mellitus (Acute) CAD (coronary artery disease) (Acute) Depression (Acute) Type 2 diabetes mellitus with hyperglycemia (Acute) GERD (gastroesophageal reflux disease) (Acute) HTN (hypertension) (Acute) Cervical radiculopathy (Acute) Past Medical History Medical History Arthritis Back pain CAD (coronary artery disease) Cervical radiculopathy Depression Diabetic polyneuropathy associated with type 2 diabetes mellitus Dyslipidemia Elevated cholesterol Failed back syndrome of lumbar spine GERD (gastroesophageal reflux disease) History of 2019 novel coronavirus disease (COVID-19) History of ADHD History of fatty infiltration of liver History of pneumonia HTN (hypertension) Hypogonadism Nephrolithiasis Obesity (BMI 30-39.9) Obstructive sleep apnea On beta mitra at home Sleep apnea Type 2 diabetes mellitus with hyperglycemia Vitamin D deficiency Cognitive capacity: AAO X3 Family History Family History Father Diabetes Hypertension Myocardial infarction Mother Diabetes Stroke Alzheimers disease Pacemaker Brother Diabetes Heart problem Myocardial infarction Sister Myocardial infarction Maternal Grandmother Myocardial infarction Family history of problems with anesthesia: No Surgical History Surgical History Gynecomastia H/O colonoscopy History of carpal tunnel release History of elbow surgery History of esophagogastroduodenoscopy (EGD) History of kidney surgery Hx laparoscopic cholecystectomy Hx of arthroscopic knee surgery Hx of cardiac catheterization Hx of lumbar discectomy Hx of shoulder surgery History of Problems with Anesthesia: No Social History Social History Household Members: Family Housing: Apartment Are you a primary customer care voice consultant to a significant other at home: No Do you presently have visiting nurse or other home services: No Alcohol intake: never Patient Tobacco Use Status: Never used Tobacco e-Cigarette/Vaping Use: Never Used Second Hand Smoke Exposure: No Have you been hit, kicked, punched, or otherwise hurt by someone within the past year? If so, by whom?: No Are you DNR?: No Advance Directives: No Advance Directives Information Provided: No Advance Directives on File: No Recently lost weight without trying: No Eating poorly because of decreased appetite: No Nutrition Risks: No Nutritional Risk service: No Current occupational status: disabled Meds Allergies Allergy/AdvReac Type Severity Reaction Status Date / Time morphine [Morphine] Allergy Severe HIVES, Verified 05/15/21 06:35 THROAT CLOSES penicillin G [Penicillin G] Allergy Severe ANAPHYLAXIS Verified 05/15/21 06:35 Sulfa (Sulfonamide Allergy Severe ANAPHYLAXIS Verified 05/15/21 06:35 Antibiotics) [SULFA (SULFONAMIDE ANTIBIOTICS)] Gadolinium-Containing Allergy Intermediate Hives/Rash, Verified 05/15/21 06:35 Contrast Medi dizziness, [Gadolinium-Containing blue spots Agents] Iodinated Contrast Media Allergy Intermediate hives,rash Verified 05/15/21 06:35 tramadol AdvReac Gastrointestinal Verified 05/15/21 06:35 Upset Active Medications: Current Medications Generic Name Dose Route Start Last Admin Trade Name Freq PRN Reason Stop Dose Admin Lactated Ringer's 1,000 mls @ 50 mls/hr 05/15/21 07:45 Lr IVCONT .Q20H EDITH Home Medications Medication Instructions Recorded Confirmed Last Taken Type ciclopirox 8 % topical solution ml TOPICAL DAILY 01/13/21 04/24/21 Unknown History pen needle, diabetic 32 gauge x #50 ea 03/25/21 04/24/21 Unknown History Exam Exam Date and Time: May 15, 2021 0741 Height,Weight and Vital Signs: Height 5 ft 10 in Weight 109.769 kg Last Vital Signs Temp 97.5 F 05/15/21 06:46 Pulse 69 05/15/21 06:46 Resp 16 05/15/21 06:46 BP 135/79 05/15/21 06:46 Pulse Ox 97 05/15/21 06:46 Pertinent Lab Results Pertinent Lab Results: Laboratory Tests 05/15/21 06:42 POC Glucose 116 H Airway Mallampati Class: III TM Dist: >3cm Neck ROM: Full Loose/Missing/Broken Teeth: No Heart: [id number] Lungs: +b/s bilaterally Assessment and Plan Assessment Anesthesia Assessment: Anesthesia Plan Discussed and Chart Reviewed Final Anesthetic Review Family History of Problems with Anesthesia: No History of Problems with Anesthesia: No NPO: Yes ASA Class: III Final Preanesthetic Review: No Changes in Pt Med Stat, Meds/Allgs Chart Reviewed, Consent Obtained/Reviewed and Anes Risks/Benef Reviewed Patient Risk: Intermediate Procedure Risk: Low Assessment/Block/Sedation in SS: Assess/Block/Sedation-SS Anesthetic Plan Anesthetic Plan: MAC: and Agree w/ Assess. and Plan Disposition: Standard PACU
--- NOTE | 2021-05-15 07:45 | PM.OP ---
Brief Operative Note Date of Service: 05/15/21 Pre-op diagnosis: Colon cancer screening, history of colon polyps Post-op diagnosis: other (diverticulosis, hemorrhoids) Procedure: COLONOSCOPY TILL CECUM Consent: Indications for the procedure and potential complications of bleeding, perforation, reaction to medications and missed diagnosis were discussed with the patient and informed consent was obtained. Instrument: Olympus PCF H 190 L variable stiffness pediatric colonoscope Monitoring: Vital signs and clinical assessment, intermittent blood pressure monitoring, continuous EKG monitoring, Pulse oximetry and Carbon Dioxide monitoring were done throughout the procedure. Colon withdrawl time was 16 minutes. Procedure: The patient was placed in the left lateral decubitis position and pre-procedure medications were administered. After a digital rectal examination of the ano-rectum, the video colonoscope was inserted into the rectum and advanced through the colon to the cecum. The colonoscope was slowly withdrawn in a retrograde panoramic fashion and the colon mucosa was carefully examined including a retroflexed view of the rectum. Findings and interventions are described below. Procedure Difficulty: Colon was long and tortuous and there was some loop formation. LLQ pressure was applied to intubate the cecum Findings: Terminal Ileum: Not evaluated Cecum: Normal Ascending Colon: Normal Transverse Colon: Normal Descending Colon: Normal Sigmoid Colon: Moderate diverticulosis Rectum: Normal Ano-rectum: Small internal hemorrhoids and a hypertrophied anal papilla Colon preparation: Good after some irrigation Impression and Post Procedure Diagnosis: Colonoscopy Findings: No polyps were detected Moderate diverticulosis seen in the sigmoid colon Small hemorrhoids on retroflexed exam. Plan: Patient has an appointment on 06/02/21 in the GI Clinic with DION Fine. Repeat Colonoscopy in 5 years due to past hx of adenomatous polyps. Above findings were reviewed with the patient and diverticulosis handout was given in the discharge area Surgeon: Elizabeth Jerez MD Anesthesia: MAC (Livier Sanabria CRNA) Was an Stationary Boiler Fireman used for this Procedure?: Yes Stationary Boiler Fireman: Gilda Trevino Estimated blood loss (mL): 0 Pathology: none sent Condition: stable Disposition: PACU
[2021-05-15 08:41] VITALS: BP 95/60; PULSE 70; RESP 16; TEMP 36.6; O2SAT 96
[2021-05-15 08:56] VITALS: BP 128/77; PULSE 69; RESP 16; TEMP 36.6; O2SAT 96
--- NOTE | 2021-05-15 15:26 | W.PM.OPN ---
Operative Note Operative Note Date of Service: 05/15/21 Narrative: Pre-op diagnosis:?Colon cancer screening, history of colon polyps Post-op diagnosis:?other (diverticulosis, hemorrhoids) Procedure:? COLONOSCOPY TILL CECUM Consent: Indications for the procedure and potential complications of bleeding, perforation, reaction to medications and missed diagnosis were discussed with the patient and informed consent was obtained. Instrument: Olympus PCF H 190 L variable stiffness pediatric colonoscope Monitoring: Vital signs and clinical assessment, intermittent blood pressure monitoring, continuous EKG monitoring, Pulse oximetry and Carbon Dioxide monitoring were done throughout the procedure. Colon withdrawl time was 16 minutes. Procedure: The patient was placed in the left lateral decubitis position and pre-procedure medications were administered. After a digital rectal examination of the ano-rectum, the video colonoscope was inserted into the rectum and advanced through the colon to the cecum. The colonoscope was slowly withdrawn in a retrograde panoramic fashion and the colon mucosa was carefully examined including a retroflexed view of the rectum. Findings and interventions are described below. Procedure Difficulty:? Colon was long and tortuous and there was some loop formation. LLQ pressure was applied to intubate the cecum Findings: Terminal Ileum: Not evaluated Cecum:? Normal Ascending Colon:? Normal Transverse Colon:? Normal Descending Colon:? Normal Sigmoid Colon:? Moderate diverticulosis Rectum:? Normal Ano-rectum:? Small internal hemorrhoids and a hypertrophied anal papilla Colon preparation:? Good after some irrigation Impression and Post Procedure Diagnosis: Colonoscopy Findings: No polyps were detected Moderate diverticulosis seen in the sigmoid colon Small hemorrhoids on retroflexed exam. Plan: Patient has an appointment on 06/02/21 in the GI Clinic with DION Fine. Repeat Colonoscopy in 5 years due to past hx of adenomatous polyps. Above findings were reviewed with the patient and diverticulosis handout was given in the discharge area Surgeon:?Elizabeth Jerez MD Anesthesia:?MAC (Livier Sanabria CRNA) Was an Anthropology Professor used for this Procedure?:?Yes Anthropology Professor:?Gilda Trevino Estimated blood loss (mL):?0 Pathology:?none sent Condition:?stable Disposition:?PACU
== END 2021-05-15 09:32 | disposition home or self-care (01) ==
PROVIDERS: PCP Internal Medicine; Visit Provider Internal Medicine Gastroenterology
PROC: 0DJD8ZZ Inspection of Lower Intestinal Tract, Via Natural or Artificial Opening Endoscopic (ICD-10-PCS; CPT 45378; principal; 2021-05-15 07:30)
DX: Z12.11 Encounter for screening for malignant neoplasm of colon (principal); Z86.010 Personal history of colon polyps; K57.30 Diverticulosis of large intestine without perforation or abscess without bleeding; K64.8 Other hemorrhoids; K62.89 Other specified diseases of anus and rectum; K21.9 Gastro-esophageal reflux disease without esophagitis; K76.0 Fatty (change of) liver, not elsewhere classified; I10 Essential (primary) hypertension; E11.42 Type 2 diabetes mellitus with diabetic polyneuropathy; E11.65 Type 2 diabetes mellitus with hyperglycemia; E55.9 Vitamin D deficiency, unspecified; G47.33 Obstructive sleep apnea (adult) (pediatric); Z79.82 Long term (current) use of aspirin; Z79.899 Other long term (current) drug therapy; Z79.84 Long term (current) use of oral hypoglycemic drugs; Z88.2 Allergy status to sulfonamides; Z88.8 Allergy status to other drugs, medicaments and biological substances; Z91.041 Radiographic dye allergy status; Z86.16 Personal history of COVID-19; Z90.49 Acquired absence of other specified parts of digestive tract
CPT/HCPCS: G0105; 82947

== ENCOUNTER 2021-05-22 15:02 | Outpatient (REF) | payer OTHER, SELFPAY ==
[2021-05-22 17:21] LABS: Alanine Aminotransferase 36 U/L (0-40); Albumin Level 4.4 g/dL (3.5-5.0); Alkaline Phosphatase 81 U/L (39-117); Aspartate Amino Transferase 22 U/L (5-37); Bilirubin Direct 0.2 mg/dL (0.0-0.5); Bilirubin Total 0.4 mg/dL (0.0-1.0); Calcium 9.7 mg/dL (8.4-10.2); Total Protein 7.4 g/dL (6.5-8.0)
== END 2021-05-22 15:03 | disposition home or self-care (01) ==
LOC: HO.LAB 15:02
PROVIDERS: PCP Internal Medicine; Visit Provider Hospitalist
DX: G47.33 Obstructive sleep apnea (adult) (pediatric) (principal); J45.40 Moderate persistent asthma, uncomplicated; J18.9 Pneumonia, unspecified organism; E83.52 Hypercalcemia; R79.89 Other specified abnormal findings of blood chemistry; B94.8 Sequelae of other specified infectious and parasitic diseases
CPT/HCPCS: 36415; 80076; 82310; 82785; 86003; 99202

== ENCOUNTER 2021-06-23 08:54 | Outpatient (REF) | payer OTHER, SELFPAY ==
--- NOTE | 2021-06-23 17:45 | PFT_ITS ---
Only spirometry before and after bronchodilators was performed. No lung volumes or diffusion capacity performed. Forced vital capacity is slightly decreased. FEV1, [id number], and MVV are normal. Post bronchodilator therapy, there is no significant change. CONCLUSION: There is no evidence of any obstructive airway disorder. Also, no response to bronchodilator therapy. The patient may have a mild degree of restrictive pulmonary disorder as indicated by decreased FVC. Clinical correlation is recommended. MD LADONNA Malone/WALTER / [id number]
== END 2021-06-23 08:55 | disposition home or self-care (01) ==
LOC: HO.RESP 08:54
PROVIDERS: Visit Provider Hospitalist
DX: B94.8 Sequelae of other specified infectious and parasitic diseases (principal); J18.9 Pneumonia, unspecified organism; J45.909 Unspecified asthma, uncomplicated
CPT/HCPCS: 94060

== ENCOUNTER → 2021-07-01 09:52 | Outpatient (BNVA) | payer OTHER, SELFPAY | PROVIDERS: PCP Internal Medicine; Visit Provider Hospitalist | DX: J18.9 Pneumonia, unspecified organism (principal); G47.33 Obstructive sleep apnea (adult) (pediatric); J45.40 Moderate persistent asthma, uncomplicated; B94.8 Sequelae of other specified infectious and parasitic diseases | CPT/HCPCS: 99212 ==

== ENCOUNTER 2021-07-09 08:39 | Outpatient (REF) | payer OTHER, SELFPAY ==
--- NOTE | ~2021-07-09 | CT_ITS ---
EXAMINATION: CT CHEST WITHOUT CONTRAST CLINICAL INFORMATION: Shortness of breath COMPARISON: Previous chest x-ray most recent April 2021 TECHNIQUE: Multidetector volumetric CT imaging of the chest was done. Axial MIP volume rendering provided. Sagittal and coronal reformatted images were obtained. This CT examination was performed using dose optimization techniques as appropriate, variously including the following: *Automated exposure control *Adjustment of mA and/or kV according to patient size (this includes techniques or standardized protocols for targeted exams where dose is matched to indication/reason for exam; i.e. extremities or head) *Use of iterative reconstruction technique DLP: 342 mGy-cm FINDINGS: LUNGS: There is bilateral apical pleural thickening and calcification, right greater than left. There is a 1 cm cyst in the left upper lobe axial image 174 series 5. There are several smaller 5 mm cysts in the left lower lobe. There is a 2 mm calcified right middle lobe nodule axial image 278 series 5. There is a 2 mm calcified right lower lobe nodule axial image 11 series 5. There is a 2 mm noncalcified right lower lobe nodule adjacent to the major fissure axial image 235 series 5 probably representing a subpleural lymph node. No evidence of emphysema, interstitial lung disease or bronchiectasis is seen. MEDIASTINUM: The mediastinum is normal. PLEURA: There is no pleural effusion. No pleural mass or thickening. AXILLA: No lymphadenopathy. UPPER ABDOMEN: There are small benign-appearing calcifications in the liver. The gallbladder has been removed. There is a small calcification in the upper pole the left kidney probably representing a stone. There is a soft tissue nodule adjacent to the inferior spleen probably representing a splenule. There may be diverticulosis. OSSEOUS STRUCTURES: There are degenerative changes of the spine. CT/CT chest wo con IMPRESSION: Mild biapical pleural and parenchymal scarring. Small calcified and noncalcified pulmonary nodules or micronodules. According to the UPDATED 2017 Fleischner Society recommendations, the advised follow-up imaging for less than 6 mm nodule: Low risk, no chest CT follow-up and high risk, optional chest CT follow-up in one year. Several small cysts in the left lung, largest measuring 1 cm in the left upper lobe.
== END 2021-07-09 08:40 | disposition home or self-care (01) ==
LOC: HO.CT 08:39
PROVIDERS: Visit Provider Internal Medicine
DX: R06.02 Shortness of breath (principal); J18.9 Pneumonia, unspecified organism
CPT/HCPCS: 71250

== ENCOUNTER 2021-07-13 07:06 | Emergency (ER) | payer OTHER, SELFPAY ==
--- NOTE | ~2021-07-13 | XR_ITS ---
EXAMINATION: XR CHEST CLINICAL INFORMATION: Cough and chest pain COMPARISON: Previous chest x-ray April [address] of the chest July 2021 TECHNIQUE: 2 views of the chest were obtained. FINDINGS: The cardiac and mediastinal contours are stable. The lungs are clear. There is no pleural effusion or pneumothorax. There are degenerative changes of the spine. XR/XR chest 2V IMPRESSION: Unremarkable examination.
[2021-07-13 07:11] VITALS: BP 171/95; PULSE 80; RESP 18; TEMP 36.3; O2SAT 97; BMI 27.1
--- NOTE | 2021-07-13 07:24 | ED_ITS ---
HPI - SOB/Dyspnea General Chief Complaint: Dyspnea Stated Complaint: asthma Time Seen by Provider: 07/13/21 07:24 Source: patient Mode of arrival: ambulatory Limitations: no limitations History of Present Illness HPI Narrative: Patient with chest pain worse with coughing for 2 days. Patient was short of breath all night, nausea. States he could not sleep last night. Patient states he has had pneumonia 2 times in the past few months. He is not vaccinated against COVID. Chart states that he had severe COVID at [facility]. MD elicited complaint: shortness of breath, cough and pain with inspiration Pertinent past history: COPD Onset (ago): day(s) Timing: constant Severity: mild Associated symptoms: chest pain, pain with inspiration, fever, cough and na usea/vomiting Related Data Home Medications Medication Instructions Recorded Confirmed ciclopirox 8 % topical solution ml TOPICAL DAILY 01/13/21 04/24/21 pen needle, diabetic 32 gauge x #50 ea 03/25/21 04/24/21 Previous Rx's Medication Instructions Recorded tamsulosin 0.4 mg capsule 0.4 mg PO BEDTIME #14 cap 08/06/20 allopurinol 100 mg tablet 100 mg PO DAILY #90 tab 10/02/20 pyridoxine (vitamin B6) 100 mg 100 mg PO DAILY #90 tab 10/02/20 tablet naproxen 500 mg tablet (Naprosyn) 500 mg PO BID PRN #30 tab 10/30/20 blood sugar diagnostic (FreeStyle #150 ea 01/14/21 Lite Strips) cholecalciferol (vitamin D3) 50 50 mcg PO DAILY 30 Days #30 cap 01/14/21 mcg (2,000 unit) capsule ezetimibe 10 mg tablet 10 mg PO DAILY #90 tab 01/14/21 aspirin 81 mg tablet,delayed 81 mg PO DAILY #90 tab 02/09/21 release metoprolol tartrate 50 mg tablet 50 mg PO BID #180 tab 03/11/21 omeprazole 20 mg capsule,delayed 20 mg PO BID #60 cap 04/14/21 release rosuvastatin 40 mg tablet 40 mg PO DAILY #90 tab 04/14/21 albuterol sulfate 2.5 mg INHALATION Q8H PRN 30 Days 05/22/21 #90 ml albuterol sulfate 90 mcg/actuation 2 inh INHALATION Q6H PRN 30 Days 05/22/21 aerosol inhaler #18 g budesonide-formoterol HFA 160 2 puff INHALATION BID 30 Days 05/22/21 mcg-4.5 mcg/actuation aerosol #10.2 g inhaler (Symbicort) mometasone-formoterol HFA 200 2 puff INHALATION Q12H 30 Days #13 05/25/21 mcg-5 mcg/actuation aerosol g inhaler (Dulera) pregabalin 150 mg capsule 150 mg PO BID PRN 30 Days #60 cap 05/25/21 alcohol swabs (BD Alcohol Swabs) 1 pad TOPICAL BID 90 Days #200 ea 06/09/21 fluoxetine 40 mg capsule 40 mg PO DAILY 90 Days #90 cap 06/09/21 fluticasone fur. 100 mcg-umeclid 1 inh INHALATION DAILY 30 Days #60 07/01/21 62.5 mcg-vilant 25 mcg ea inhalat.powder (Trelegy Ellipta) fluticasone fur. 100 mcg-umeclid 1 inh INHALATION DAILY 30 Days #60 07/01/21 62.5 mcg-vilant 25 mcg ea inhalat.powder (Trelegy Ellipta) lisinopril 10 mg tablet 10 mg PO DAILY #90 tab 07/03/21 metformin 750 mg tablet,extended 1,500 mg PO DAILY 30 Days #60 tab 07/03/21 release 24 hr dulaglutide 0.75 mg/0.5 mL 0.75 mg SUBCUT QWEEK 30 Days #2.5 07/06/21 subcutaneous pen injector ml (Trulicity) naproxen 500 mg tablet (Naprosyn) 500 mg PO BID #20 tab 07/13/21 Allergies Allergy/AdvReac Type Severity Reaction Status Date / Time morphine [Morphine] Allergy Severe HIVES, Verified 07/01/21 10:14 THROAT CLOSES penicillin G [Penicillin G] Allergy Severe ANAPHYLAXIS Verified 07/01/21 10:14 Sulfa (Sulfonamide Allergy Severe ANAPHYLAXIS Verified 07/01/21 10:14 Antibiotics) [SULFA (SULFONAMIDE ANTIBIOTICS)] Gadolinium-Containing Allergy Intermediate Hives/Rash, Verified 07/01/21 10:14 Contrast Medi dizziness, [Gadolinium-Containing blue spots Agents] Iodinated Contrast Media Allergy Intermediate hives,rash Verified 07/01/21 10:14 tramadol AdvReac Gastrointestinal Verified 09/29/21 10:14 Upset Review of Systems Constitutional: Constitutional: Reports no additional constitutional complaints Eyes: Eyes: Reports no additional eye complaints ENT: Denies dizziness Cardiovascular: Cardiovascular: Reports no additional cardiovascular complaints Respiratory: Respiratory: Reports as per HPI Gastrointestinal: Gastrointestinal: Reports no additional gastrointestinal complaints Musculoskeletal: Musculoskeletal: Reports no additional musculoskeletal com plaints Integumentary/Breasts: Skin/Breast: Denies rash Neurologic: Reports system reviewed and no additional complaints, except as documented, Denies dizziness and Denies Sensory deficit (Neuro) Psychiatric: Psychiatric: Denies anxiety [facility] Past Medical History Medical History (Updated 07/13/21 @ 09:48 by Gamaliel Chapman MD) Arthritis Asthma Back pain CAD (coronary artery disease) Cervical radiculopathy Depression Diabetic polyneuropathy associated with type 2 diabetes mellitus Dyslipidemia Elevated cholesterol Failed back syndrome of lumbar spine GERD (gastroesophageal reflux disease) History of 2019 novel coronavirus disease (COVID-19) History of ADHD History of fatty infiltration of liver History of pneumonia HTN (hypertension) Hypogonadism Nephrolithiasis Obesity (BMI 30-39.9) Obesity (BMI 30-39.9) Obstructive sleep apnea On beta mitra at home SONY (obstructive sleep apnea) Pneumonia 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 Reactive airway disease Sleep apnea Type 2 diabetes mellitus with hyperglycemia Vitamin D deficiency Surgical History Gynecomastia H/O colonoscopy History of carpal tunnel release History of elbow surgery History of esophagogastroduodenoscopy (EGD) History of kidney surgery Hx laparoscopic cholecystectomy Hx of arthroscopic knee surgery Hx of cardiac catheterization Hx of lumbar discectomy Hx of shoulder surgery Family History Family History Father Diabetes Hypertension Myocardial infarction Mother Diabetes Stroke Alzheimers disease Pacemaker Brother Diabetes Heart problem Myocardial infarction Sister Myocardial infarction Maternal Grandmother Myocardial infarction Social History Social History Household Members: Family Housing: Apartment Are you a primary resident caregiver to a significant other at home: No Do you presently have visiting nurse or other home services: No Alcohol intake: never Patient Tobacco Use Status: Never used Tobacco e-Cigarette/Vaping Use: Never Used Second Hand Smoke Exposure: No Use of substances other than those prescribed or required for medical reasons: No Advance Directives: No Advance Directives Information Provided: No service: No Current occupational status: disabled Physical Exam Vital Signs: Vital Signs: Last Vital Signs Temp 97.4 F 07/13/21 07:11 Pulse 80 07/13/21 07:11 Resp 18 07/13/21 07:11 BP 171/95 H 07/13/21 07:11 Pulse Ox 97 07/13/21 07:11 Body Mass Index 27.1 Const: Other: Patient looking miserable. Nutritional Appearance: average body habitus Orientation/consciousness: oriented to person and patient oriented x3 Limitations: no limitations HENMT: Head: Yes normal to inspection Ears: external ears normal General nose exam: Normal external nose present Mouth: Normal oral and palatal mucosa present and oropharynx normal Throat: Yes posterior oropharynx normal Eyes: General: appearance normal, both eyes and all related structures Neck: Other: supple Neck: Yes normal visual inspection Chest: Chest palpation & inspection: normal inspection of the chest Resp: Auscultation: clear to auscultation bilaterally Cardio: Jugular venous distension: no JVD Rate: regular rate Rhythm: regular rhythm Heart sounds: S1 normal heart sound present and S2 normal heart sound present GI: Inspection: Yes normal to inspection Palpation (GI): Soft to palpation, nontender and No hepatosplenomegaly present Auscultation: normal bowel sounds : General: Yes no CVA tenderness Back/Spine/Pelvis: Back: no CVA tenderness Skin: General skin exam: no rashes or lesions noted Neuro: General: oriented to person and patient oriented x3 Cranial nerves: Yes CN's II-XII intact bilaterally Motor exam (neuro): 5/5 motor strength present throughout Sensory Exam: No Sensory deficit (Neuro) Extrem: General: Yes normal to inspection Psych: Appearance: grossly normal Course Reevaluation(s) Reevaluation #1: vitals, physical and labs all normal will dc patient with follow up Time: 09:46 MDM - SOB/Dyspnea Lab Data Result diagrams: 07/13/21 08:16 07/13/21 08:16 Labs: Lab Results 07/13/21 07/13/21 07/13/21 Range/Units 07:17 08:16 08:16 WBC 7.8 (4.8-10.8) X10*3/uL RBC 5.54 (4.60-5.80) X10*6/uL Hgb 14.3 (14.0-18.0) g/dl Hct 44.8 (42-52) % MCV 80.9 (80-98) fL MCH 25.8 L (27.0-33.0) pg MCHC 31.9 (31.0-36.0) g/dl RDW 15.2 (11.0-16.0) % Plt Count 222 (160-400) X10*3/uL MPV 9.8 (9.4-12.4) fL Immature Gran % (Auto) 0.4 (0.0-0.4) % Neut % (Auto) 71.1 (45-73) % Lymph % (Auto) 17.0 L (20-40) % Carroll % (Auto) 8.1 (2-11) % Eos % (Auto) 3.0 (0-4) % Baso % (Auto) 0.4 (0-2) % Lymph # (Auto) 1.3 (1.2-4.9) X10*3/uL Carroll # (Auto) 0.6 (0.1-1.2) X10*3/uL Eos # (Auto) 0.2 (0.0-0.4) X10*3/uL Baso # (Auto) 0.0 (0.0-0.2) X10*3/uL Abs Immat Gran (auto) 0.03 (0.00-0.03) X10*3/uL Absolute Neuts (auto) 5.5 (2.0-8.3) X10*3/uL Absolute Nucleated RBC 0.000 (0.0-0.012) X10*3/uL Nucleated RBC % (auto) 0.0 (0.0-0.2) /100WBC Sodium 141 (135-145) mmol/L Potassium 4.2 (3.3-5.1) mmol/L Chloride 108 (96-108) mmol/L Carbon Dioxide 24 (22-29) mmol/L Anion Gap 13 (12-20) BUN 10 (9-16) mg/dL Creatinine 0.77 (0.5-1.4) mg/dL Estim Creat Clear Calc 118.9 Estimated GFR > 60 Random Glucose 122 H (60-115) mg/dL Calcium 9.3 (8.4-10.2) mg/dL Coronavirus (PCR) NEGATIVE (Negative) Influenza Type A (PCR) NEGATIVE (Negative) Influenza Type B (PCR) NEGATIVE (Negative) RSV RNA Qual (PCR) NEGATIVE (Negative) Imaging Data Chest x-ray: Attestation: I personally reviewed and interpreted this imaging study as follows: Radiologist's impression: FINDINGS: The cardiac and mediastinal contours are stable. The lungs are clear. There is no pleural effusion or pneumothorax. There are degenerative changes of the spine. XR/XR chest 2V IMPRESSION: Unremarkable examination. ECG Data Attestation: I personally reviewed and interpreted this ECG as follows: Interpretation: normal sinus rate 75, no st or twave changes Discharge Plan Discharge Clinical Impression: Chest pain not due to acute coronary syndrome Patient Disposition: Home, Self-Care Instructions: Noncardiac Chest Pain (ED) Prescriptions: New naproxen [Naprosyn] 500 mg tablet 500 mg PO BID Qty: 20 RF: 0 No Action aspirin 81 mg tablet,delayed release (DR/EC) 81 mg PO DAILY Qty: 90 RF: 3 metoprolol tartrate 50 mg tablet 50 mg PO BID Qty: 180 RF: 1 rosuvastatin 40 mg tablet 40 mg PO DAILY Qty: 90 RF: 6 omeprazole 20 mg capsule,delayed release(DR/EC) 20 mg PO BID Qty: 60 RF: 1 pregabalin 150 mg capsule 150 mg PO BID PRN (Reason: pain) 30 Days Qty: 60 RF: 3 Dulera 200-5 mcg/actuation HFA aerosol inhaler 2 puff inhalation Q12H 30 Days Qty: 13 RF: 11 alcohol swabs [BD Alcohol Swabs] Pads, Medicated 1 pad topical BID 90 Days Qty: 200 RF: 3 fluoxetine 40 mg capsule 40 mg PO DAILY 90 Days Qty: 90 RF: 2 metformin 750 mg tablet extended release 24 hr 1,500 mg PO DAILY 30 Days Qty: 60 RF: 3 lisinopril 10 mg tablet 10 mg PO DAILY Qty: 90 RF: 3 Trulicity 0.75 mg/0.5 mL pen injector 0.75 mg subcut QWEEK 30 Days Qty: 2.5 RF: 6 tamsulosin 0.4 mg capsule 0.4 mg PO BEDTIME Qty: 14 RF: 0 naproxen [Naprosyn] 500 mg tablet 500 mg PO BID PRN (Reason: pain) Qty: 30 RF: 3 (DME) FreeStyle Lite Strips Strip See Rx Instructions .MEDSUPPLY Qty: 150 RF: 6 cholecalciferol (vitamin D3) 50 mcg (2,000 unit) capsule 50 mcg PO DAILY 30 Days Qty: 30 RF: 6 ezetimibe 10 mg tablet 10 mg PO DAILY Qty: 90 RF: 2 pyridoxine (vitamin B6) 100 mg tablet 100 mg PO DAILY Qty: 90 RF: 1 allopurinol 100 mg tablet 100 mg PO DAILY Qty: 90 RF: 3 (DME) pen needle, diabetic 32 gauge x 5/32 needle See Rx Instructions ea .ROUTE .MEDSUPPLY Qty: 50 RF: 0 ciclopirox 8 % solution topical DAILY RF: 0 albuterol sulfate 2.5 mg /3 mL (0.083 %) solution for nebulization 2.5 mg inhalation Q8H PRN (Reason: shortness of breath or wheezing) 30 Days Qty: 90 RF: 11 albuterol sulfate 90 mcg/actuation HFA aerosol inhaler 2 inh inhalation Q6H PRN (Reason: shortness of breath or wheezing) 30 Days Qty: 18 RF: 12 budesonide-formoterol [Symbicort] 160-4.5 mcg/actuation HFA aerosol inhaler 2 puff inhalation BID 30 Days Qty: 10.2 RF: 11 Trelegy Ellipta 100-62.5-25 mcg blister with device 1 inh inhalation DAILY 30 Days Qty: 60 RF: 11 Trelegy Ellipta 100-62.5-25 mcg blister with device 1 inh inhalation DAILY 30 Days Qty: 60 RF: 11 Referrals: Po,Price Casas MD [Primary Care Provider] - 1 week
--- NOTE | 2021-07-13 07:33 | ECG_ITS ---
Test Reason : CHESTPAIN Blood Pressure : / mmHG Vent. Rate : 075 BPM Atrial Rate : 075 BPM P-R Int : 170 ms QRS Dur : 092 ms QT Int : 390 ms P-R-T Axes : 045 -09 015 degrees QTc Int : 435 ms Normal sinus rhythm Minimal voltage criteria for LVH, may be normal variant Borderline ECG When compared with ECG of 17-SEP-2018 07:19, Heart rate has increased Referred By: Gamaliel Chapman Electronically Signed By:MARY SWAN MD
[2021-07-13] MEDS: Ondansetron ODT 4 MG TAB.RAPDIS TRANSLINGU (07:39)
[2021-07-13 08:07] LABS: Influenza A PCR NEGATIVE (Negative); Influenza B PCR NEGATIVE (Negative); Resp Syncy Virus RNA Qual PCR NEGATIVE (Negative); SARS COV2 PCR INHOUSE NEGATIVE (Negative)
[2021-07-13 08:21] LABS: MANUAL DIFF FLAG NO
[2021-07-13 08:22] LABS: Basophils Percent Auto 0.4 % (0-2); Eosinophils Absolute Auto 0.2 X10*3/uL (0.0-0.4); Hematocrit 44.8 % (42-52); Hemoglobin 14.3 g/dl (14.0-18.0); Imm Gran Abs Auto 0.03 X10*3/uL (0.00-0.03); Imm Gran Pct Auto 0.4 % (0.0-0.4); Lymphocytes Absolute Auto 1.3 X10*3/uL (1.2-4.9); Mean Corpuscular HGB Conc 31.9 g/dl (31.0-36.0); Mean Corpuscular Hemoglobin 25.8 pg (27.0-33.0); Mean Corpuscular Volume 80.9 fL (80-98); Mean Platelet Volume 9.8 fL (9.4-12.4); Monocytes Absolute Auto 0.6 X10*3/uL (0.1-1.2); Monocytes Percent Auto 8.1 % (2-11); Neutrophils Absolute Auto 5.5 X10*3/uL (2.0-8.3); Neutrophils Percent Auto 71.1 % (45-73); Platelet Count 222 X10*3/uL (160-400); Red Blood Count 5.54 X10*6/uL (4.60-5.80); Red Cell Distribution Width 15.2 % (11.0-16.0); White Blood Count 7.8 X10*3/uL (4.8-10.8)
[2021-07-13 08:37] LABS: Anion Gap 13 (12-20); Blood Urea Nitrogen 10 mg/dL (9-16); Calcium 9.3 mg/dL (8.4-10.2); Carbon Dioxide 24 mmol/L (22-29); Chloride 108 mmol/L (96-108); Creatinine Clr Calc Pharmacy 118.9; Estimated Glomerular Filt Rate > 60; Glucose Random 122 mg/dL (60-115); Potassium 4.2 mmol/L (3.3-5.1); Sodium 141 mmol/L (135-145)
[2021-07-13 09:56] VITALS: BP 158/82; PULSE 84; RESP 18; TEMP 36.9; O2SAT 96
== END 2021-07-13 10:02 | disposition home or self-care (01) ==
PROVIDERS: Emergency Provider Emergency Medicine; PCP Internal Medicine
DX: R07.9 Chest pain, unspecified (principal); I10 Essential (primary) hypertension; E11.9 Type 2 diabetes mellitus without complications; I25.10 Atherosclerotic heart disease of native coronary artery without angina pectoris; Z79.82 Long term (current) use of aspirin; Z79.84 Long term (current) use of oral hypoglycemic drugs; Z79.899 Other long term (current) drug therapy; Z20.822 Contact with and (suspected) exposure to COVID-19
CPT/HCPCS: 0241U; 36415; 71046; 80048; 85025; 93005; 99283; 99284

== ENCOUNTER 2021-07-14 11:28 | Outpatient (REF) | payer OTHER, SELFPAY ==
[2021-07-14 12:52] LABS: MANUAL DIFF FLAG NO
[2021-07-14 12:56] LABS: Basophils Percent Auto 0.6 % (0-2); Eosinophils Absolute Auto 0.3 X10*3/uL (0.0-0.4); Eosinophils Percent Auto 5.2 % (0-4); Hematocrit 45.3 % (42-52); Hemoglobin 14.3 g/dl (14.0-18.0); Imm Gran Abs Auto 0.02 X10*3/uL (0.00-0.03); Imm Gran Pct Auto 0.3 % (0.0-0.4); Lymphocytes Absolute Auto 1.1 X10*3/uL (1.2-4.9); Lymphocytes Percent Auto 17.8 % (20-40); Mean Corpuscular HGB Conc 31.6 g/dl (31.0-36.0); Mean Corpuscular Hemoglobin 25.7 pg (27.0-33.0); Mean Corpuscular Volume 81.3 fL (80-98); Mean Platelet Volume 9.7 fL (9.4-12.4); Monocytes Absolute Auto 0.7 X10*3/uL (0.1-1.2); Monocytes Percent Auto 10.3 % (2-11); Neutrophils Absolute Auto 4.2 X10*3/uL (2.0-8.3); Neutrophils Percent Auto 65.8 % (45-73); Platelet Count 217 X10*3/uL (160-400); Red Blood Count 5.57 X10*6/uL (4.60-5.80); Red Cell Distribution Width 15.3 % (11.0-16.0); White Blood Count 6.4 X10*3/uL (4.8-10.8)
[2021-07-14 13:05] LABS: D Dimer 217 NG/ML
[2021-07-14 13:15] LABS: Anion Gap 12 (12-20); Blood Urea Nitrogen 11 mg/dL (9-16); Calcium 9.7 mg/dL (8.4-10.2); Carbon Dioxide 26 mmol/L (22-29); Chloride 105 mmol/L (96-108); Estimated Glomerular Filt Rate > 60; Glucose Random 140 mg/dL (60-115); Potassium 4.1 mmol/L (3.3-5.1); Sodium 139 mmol/L (135-145)
[2021-07-14 13:43] LABS: Erythrocyte Sedimentation Rate 11 MM/HR (0-15)
[2021-07-15 07:54] LABS: SARS COV2 IgG Positive (Negative)
[2021-07-15 18:07] LABS: IgA 254 mg/dL (47-310); IgG 1282 mg/dL (600-1640); IgM 27 mg/dL (50-300)
== END 2021-07-14 11:29 | disposition home or self-care (01) ==
LOC: HO.LAB 11:28
PROVIDERS: PCP Internal Medicine; Visit Provider Hospitalist
DX: J18.9 Pneumonia, unspecified organism (principal); B94.8 Sequelae of other specified infectious and parasitic diseases; J45.40 Moderate persistent asthma, uncomplicated; R07.81 Pleurodynia; G47.33 Obstructive sleep apnea (adult) (pediatric); Z79.899 Other long term (current) drug therapy; Z86.16 Personal history of COVID-19; Z01.84 Encounter for antibody response examination
CPT/HCPCS: 36415; 80048; 82784; 85025; 85379; 85652; 86769; 99212

== ENCOUNTER → 2021-07-28 19:22 | Outpatient (REF) | payer OTHER, SELFPAY | LOC: HO.SL 19:22 | PROVIDERS: Visit Provider Hospitalist | DX: G47.33 Obstructive sleep apnea (adult) (pediatric) (principal) | CPT/HCPCS: 95811 ==

== ENCOUNTER 2021-08-03 17:25 | Emergency (ER) | payer OTHER, SELFPAY ==
--- NOTE | ~2021-08-03 | XR_ITS ---
EXAMINATION: XR CHEST CLINICAL INFORMATION: Left flank pain COMPARISON: 07/13/2021 TECHNIQUE: 2 views of the chest were obtained. FINDINGS: No significant abnormality is noted involving the heart, lungs, mediastinum, bony thorax or soft tissues. Surgical clips are noted in the gallbladder fossa. Minimal degenerative changes are present in the spine. XR/XR chest 2V IMPRESSION: No acute intrathoracic disease.
--- NOTE | ~2021-08-03 | CT_ITS ---
EXAMINATION: CT ABDOMEN AND PELVIS WITHOUT CONTRAST CLINICAL INFORMATION: Left flank pain. COMPARISON: Multiple priors, most recent renal ultrasound dated 04/10/[address] abdomen/pelvis dated 11/25/2020. TECHNIQUE: Multidetector volumetric imaging was performed from the superior aspect of the liver through the pubic symphysis. Sagittal and coronal reformatted images were obtained on the technologist's workstation. This CT examination was performed using dose optimization techniques as appropriate, variously including the following: *Automated exposure control. *Adjustment of mA and/or kV according to patient size (this includes techniques or standardized protocols for targeted exams where dose is matched to indication/reason for exam; i.e. extremities or head). *Use of iterative reconstruction technique. DLP: 727 mGy-cm FINDINGS: LUNG BASES: The visualized lung bases are unremarkable. LIVER, GALLBLADDER, AND BILIARY TREE: The liver is normal in size, shape, and attenuation. Hepatic parenchymal calcifications are unchanged. No new focal hepatic lesion or biliary ductal dilatation is present. Status post cholecystectomy. PANCREAS: Unremarkable. SPLEEN: Unremarkable. ADRENAL GLANDS: Unremarkable. KIDNEYS AND URETERS: The kidneys are normal in size, shape, and attenuation. Posterior left mid pole renal stone measuring up to 0.5 cm and 539 Hounsfield units, located approximately 7.6 cm from the posterior axillary line. Additional 0.1 cm left-sided renal stones. Right lower pole renal stone measuring 0.3 cm and located 8.2 cm from the posterior axillary line. No ureteral stone. No hydronephrosis or hydroureter. Redemonstration of a simple-appearing left renal cyst. No perinephric stranding. BLADDER: Unremarkable. GASTROINTESTINAL TRACT: No bowel wall thickening or associated inflammatory change. No small or large bowel obstruction. Unremarkable appendix. PERITONEAL CAVITY: No intra-abdominal free air or free fluid. No intra-abdominal mass or organized fluid collection/abscess formation. ABDOMINAL WALL: No significant hernia is appreciated. LYMPH NODES: Central mesenteric stranding appears unchanged. No significant lymphadenopathy. VASCULAR: No abdominal aortic dilatation. Scattered atherosclerotic calcifications. PELVIC VISCERA: Prostatomegaly appears unchanged. OSSEOUS STRUCTURES: No acute osseous abnormality. Posterior stabilization hardware at L5-S1 without evidence of complication. CT/CT abdomen pelvis wo con IMPRESSION: 1. Bilateral renal stones measuring up to 0.5 cm on the left and 0.3 cm on the right. No ureteral stone. No hydronephrosis or hydroureter. Unremarkable urinary bladder. 2. Additional chronic findings are unchanged.
[2021-08-03 17:56] VITALS: BP 175/81; PULSE 76; RESP 18; TEMP 36.1; O2SAT 97; BMI 26.7
--- NOTE | 2021-08-03 18:46 | ECG_ITS ---
Test Reason : FLANK PAIN Blood Pressure : / mmHG Vent. Rate : 068 BPM Atrial Rate : 068 BPM P-R Int : 162 ms QRS Dur : 086 ms QT Int : 390 ms P-R-T Axes : 048 -02 -03 degrees QTc Int : 414 ms Normal sinus rhythm Normal ECG No significant changes seen Referred By: John Mccarthy Electronically Signed By:MARY SWAN MD
--- NOTE | 2021-08-03 18:48 | ED.GENADULT ---
HPI - General Adult General Chief complaint: Extremity Problem Stated complaint: flank pain Time Seen by Provider: 08/03/21 18:26 Source: patient, family and old records reviewed History of Present Illness HPI narrative: Patient with several days of left upper flank pain. Worse with inspiration. No recent cough. No fevers or chills. He feels slightly short of breath. No nausea vomiting diarrhea or constipation No hematuria dysuria hesitancy or frequency. Has a history of kidney stones with recent treatment for stones within the last 2 months. He states this pain feels different. He called his cdl service technician who sent him to the emergency department with concerns of pulmonary embolism. No prior history of thromboembolic disease. No recent precipitating factors. No significant change with movement. Increased pain with deep inspiration. Related Data Home Medications Medication Instructions Recorded Confirmed ciclopirox 8 % topical solution ml TOPICAL DAILY 01/13/21 04/24/21 pen needle, diabetic 32 gauge x #50 ea 03/25/21 04/24/21 Previous Rx's Medication Instructions Recorded tamsulosin 0.4 mg capsule 0.4 mg PO BEDTIME #14 cap 08/06/20 allopurinol 100 mg tablet 100 mg PO DAILY #90 tab 10/02/20 pyridoxine (vitamin B6) 100 mg 100 mg PO DAILY #90 tab 10/02/20 tablet blood sugar diagnostic (FreeStyle #150 ea 01/14/21 Lite Strips) ezetimibe 10 mg tablet 10 mg PO DAILY #90 tab 01/14/21 aspirin 81 mg tablet,delayed 81 mg PO DAILY #90 tab 02/09/21 release metoprolol tartrate 50 mg tablet 50 mg PO BID #180 tab 03/11/21 rosuvastatin 40 mg tablet 40 mg PO DAILY #90 tab 04/14/21 albuterol sulfate 2.5 mg INHALATION Q8H PRN 30 Days 05/22/21 #90 ml albuterol sulfate 90 mcg/actuation 2 inh INHALATION Q6H PRN 30 Days 05/22/21 aerosol inhaler #18 g budesonide-formoterol HFA 160 2 puff INHALATION BID 30 Days 05/22/21 mcg-4.5 mcg/actuation aerosol #10.2 g inhaler (Symbicort) mometasone-formoterol HFA 200 2 puff INHALATION Q12H 30 Days #13 05/25/21 mcg-5 mcg/actuation aerosol g inhaler (Dulera) pregabalin 150 mg capsule 150 mg PO BID PRN 30 Days #60 cap 05/25/21 alcohol swabs (BD Alcohol Swabs) 1 pad TOPICAL BID 90 Days #200 ea 06/09/21 fluoxetine 40 mg capsule 40 mg PO DAILY 90 Days #90 cap 06/09/21 fluticasone fur. 100 mcg-umeclid 1 inh INHALATION DAILY 30 Days #60 07/01/21 62.5 mcg-vilant 25 mcg ea inhalat.powder (Trelegy Ellipta) lisinopril 10 mg tablet 10 mg PO DAILY #90 tab 07/03/21 metformin 750 mg tablet,extended 1,500 mg PO DAILY 30 Days #60 tab 07/03/21 release 24 hr dulaglutide 0.75 mg/0.5 mL 0.75 mg SUBCUT QWEEK 30 Days #2.5 07/06/21 subcutaneous pen injector ml (Trulicity) benzonatate 100 mg capsule 100 mg PO BID-TID PRN 10 Days #30 07/13/21 (Tessalon Perles) cap naproxen 500 mg tablet (Naprosyn) 500 mg PO BID #20 tab 07/13/21 ondansetron HCl 4 mg tablet 4 mg PO Q8H PRN #10 tab 07/13/21 (Zofran) codeine 10 mg-guaifenesin 100 mg/5 10 ml PO Q6H PRN 10 Days #300 ml 07/14/21 mL oral liquid levofloxacin 500 mg tablet 500 mg PO DAILY 14 Days #14 tab 07/14/21 prednisone 20 mg tablet See Rx Instructions PO DAILY 10 07/14/21 Days #15 tab omeprazole 20 mg capsule,delayed 20 mg PO BID 90 Days #180 cap 07/21/21 release cholecalciferol (vitamin D3) 50 50 mcg PO DAILY 30 Days #30 cap 08/03/21 mcg (2,000 unit) capsule Allergies Allergy/AdvReac Type Severity Reaction Status Date / Time morphine [Morphine] Allergy Severe HIVES, Verified 07/14/21 11:58 THROAT CLOSES penicillin G [Penicillin G] Allergy Severe ANAPHYLAXIS Verified 07/14/21 11:58 Sulfa (Sulfonamide Allergy Severe ANAPHYLAXIS Verified 07/14/21 11:58 Antibiotics) [SULFA (SULFONAMIDE ANTIBIOTICS)] Gadolinium-Containing Allergy Intermediate Hives/Rash, Verified 07/14/21 11:58 Contrast Medi dizziness, [Gadolinium-Containing blue spots Agents] Iodinated Contrast Media Allergy Intermediate hives,rash Verified 07/14/21 11:58 tramadol AdvReac Gastrointestinal Verified 07/14/21 11:58 Upset Review of Systems Constitutional: Comments: No fevers or chills Cardiovascular: Comments: Left lower chest wall upper rib pain Respiratory: Comments: Pain with inspiration Gastrointestinal: Comments: Flank pain as mentioned above. No nausea vomiting diarrhea or constipation Genitourinary: Comments: No dysuria, hematuria, hesitancy or frequency Musculoskeletal: Comments: No calf swelling or tenderness Integumentary/Breasts: Comments: No rash Neurologic: Comments: No weakness numbness or paresthesias [facility] Past Medical History Medical History (Updated 08/03/21 @ 21:11 by John Mccarthy MD) Arthritis Asthma Back pain CAD (coronary artery disease) Cervical radiculopathy Depression Diabetic polyneuropathy associated with type 2 diabetes mellitus Dyslipidemia Elevated cholesterol Failed back syndrome of lumbar spine GERD (gastroesophageal reflux disease) History of 2019 novel coronavirus disease (COVID-19) History of ADHD History of fatty infiltration of liver History of pneumonia HTN (hypertension) Hypogonadism Nephrolithiasis Obesity (BMI 30-39.9) Obesity (BMI 30-39.9) Obstructive sleep apnea On beta mitra at home SONY (obstructive sleep apnea) Pleuritic chest pain Pneumonia 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 Reactive airway disease Sleep apnea Type 2 diabetes mellitus with hyperglycemia Vitamin D deficiency Surgical History Gynecomastia H/O colonoscopy History of carpal tunnel release History of elbow surgery History of esophagogastroduodenoscopy (EGD) History of kidney surgery Hx laparoscopic cholecystectomy Hx of arthroscopic knee surgery Hx of cardiac catheterization Hx of lumbar discectomy Hx of shoulder surgery Family History Family History Father Diabetes Hypertension Myocardial infarction Mother Diabetes Stroke Alzheimers disease Pacemaker Brother Diabetes Heart problem Myocardial infarction Sister Myocardial infarction Maternal Grandmother Myocardial infarction Social History Social History Household Members: Family Housing: Apartment Are you a primary home care rn to a significant other at home: No Do you presently have visiting nurse or other home services: No Alcohol intake: never Patient Tobacco Use Status: Never used Tobacco e-Cigarette/Vaping Use: Never Used Second Hand Smoke Exposure: No Advance Directives: No Advance Directives Information Provided: No service: No Current occupational status: disabled Physical Exam Vital Signs: Vital Signs: Last Vital Signs Temp 97.0 F 08/03/21 17:56 Pulse 55 08/03/21 19:50 Resp 16 08/03/21 19:50 BP 141/66 H 08/03/21 19:50 Pulse Ox 97 08/03/21 19:50 Body Mass Index 26.7 Const: Other: Awake alert. Appears uncomfortable. Chest: Other: No chest wall tenderness, but there is tenderness on deep palpation just below his left lateral costal border Resp: Other: Clear and equal bilaterally Cardio: Other: Regular rate and rhythm without murmurs rubs or gallops GI: Other: Tenderness as mentioned above. No significant left upper right upper quadrant tenderness to palpation. Skin: Other: Warm pink and dry without rash Neuro: Other: No focal deficit Extrem: Other: No calf tenderness Course Course Course Narrative: Pulmonary embolism Pneumonia Kidney stone Musculoskeletal pain Atelectasis Patient has allergy to contrast dye which is very significant. Per his daughter he gets anaphylaxis. He has also had renal stones with a recent lithotripsy procedure. The concern would be causing his discomfort. In the meantime will order labs including a D-dimer. CT abdomen without contrast. We are unable to get a V/Q scan at this time today. 9:05 p.m.. Workup in the emergency department is unrevealing. His D-dimer is negative. Results were conveyed to Dr. Saba, his cdl service technician, and we will have patient follow-up with an outpatient V/Q scan tomorrow. He is otherwise stable for discharge home Medical Decision Making Lab Data Result diagrams: 08/03/21 19:40 08/03/21 20:08 Labs: Lab Results 08/03/21 08/03/21 08/03/21 Range/Units 19:32 19:40 19:40 WBC 5.3 (4.8-10.8) X10*3/uL RBC 5.42 (4.60-5.80) X10*6/uL Hgb 14.1 (14.0-18.0) g/dl Hct 43.5 (42.0-52.0) % MCV 80.3 (80.0-98.0) fL MCH 26.0 L (27.0-33.0) pg MCHC 32.4 (31.0-36.0) g/dl RDW 14.5 (11.0-16.0) % Plt Count 208 (160-400) X10*3/uL MPV 10.9 (9.4-12.4) fL Immature Gran % (Auto) 0.2 (0.0-0.4) % Neut % (Auto) 55.3 (45-73) % Lymph % (Auto) 34.0 (20-40) % Mckinley % (Auto) 7.2 (2-11) % Eos % (Auto) 2.9 (0-4) % Baso % (Auto) 0.4 (0-2) % Lymph # (Auto) 1.8 (1.2-4.9) X10*3/uL Mckinley # (Auto) 0.4 (0.1-1.2) X10*3/uL Eos # (Auto) 0.2 (0.0-0.4) X10*3/uL Baso # (Auto) 0.0 (0.0-0.2) X10*3/uL Abs Immat Gran (auto) 0.01 (0.00-0.03) X10*3/uL Absolute Neuts (auto) 2.91 (2.0-8.3) x10*3/uL Absolute Nucleated RBC 0.000 (0.0-0.012) X10*3/uL Nucleated RBC % (auto) 0.0 (0.0-0.2) /100WBC D-Dimer NG/ML Sodium (135-145) mmol/L Potassium (3.3-5.1) mmol/L Chloride (96-108) mmol/L Carbon Dioxide (22-29) mmol/L Anion Gap (12-20) BUN (9-16) mg/dL Creatinine (0.5-1.4) mg/dL Estim Creat Clear Calc Estimated GFR Random Glucose (60-115) mg/dL Calcium (8.4-10.2) mg/dL Total Bilirubin (0.0-1.0) mg/dL AST (5-37) U/L ALT (0-40) U/L Alkaline Phosphatase (39-117) U/L Troponin I High Sens < 3.5 (<3.5-35.0) ng/L Total Protein (6.5-8.0) g/dL Albumin (3.5-5.0) g/dL Urine Color Urine Appearance Urine pH (5.0-8.0) Ur Specific Cullen (1.005-1.025) Urine Protein (NEG-TRACE) MG/DL Urine Glucose (UA) (NEG) MG/DL Urine Ketones (NEG) MG/DL Urine Blood (NEG) Urine Nitrite (NEG) Ur Leukocyte Esterase (NEG) Urine RBC (0) /HPF Urine WBC (0-4) /HPF Ur Squamous Epith Cells /LPF Urine Bacteria /LPF COVID-19 (KATE) Negative (Negative) COVID-19 Clin Com See Note 08/03/21 08/03/21 08/03/21 Range/Units 19:41 20:08 20:08 WBC (4.8-10.8) X10*3/uL RBC (4.60-5.80) X10*6/uL Hgb (14.0-18.0) g/dl Hct (42.0-52.0) % MCV (80.0-98.0) fL MCH (27.0-33.0) pg MCHC (31.0-36.0) g/dl RDW (11.0-16.0) % Plt Count (160-400) X10*3/uL MPV (9.4-12.4) fL Immature Gran % (Auto) (0.0-0.4) % Neut % (Auto) (45-73) % Lymph % (Auto) (20-40) % Mckinley % (Auto) (2-11) % Eos % (Auto) (0-4) % Baso % (Auto) (0-2) % Lymph # (Auto) (1.2-4.9) X10*3/uL Mckinley # (Auto) (0.1-1.2) X10*3/uL Eos # (Auto) (0.0-0.4) X10*3/uL Baso # (Auto) (0.0-0.2) X10*3/uL Abs Immat Gran (auto) (0.00-0.03) X10*3/uL Absolute Neuts (auto) (2.0-8.3) x10*3/uL Absolute Nucleated RBC (0.0-0.012) X10*3/uL Nucleated RBC % (auto) (0.0-0.2) /100WBC D-Dimer < 200 NG/ML Sodium 140 (135-145) mmol/L Potassium 4.0 (3.3-5.1) mmol/L Chloride 107 (96-108) mmol/L Carbon Dioxide 26 (22-29) mmol/L Anion Gap 11 L (12-20) BUN 12 (9-16) mg/dL Creatinine 0.86 (0.5-1.4) mg/dL Estim Creat Clear Calc 106.5 Estimated GFR > 60 Random Glucose 336 H D (60-115) mg/dL Calcium 8.5 D (8.4-10.2) mg/dL Total Bilirubin 0.6 (0.0-1.0) mg/dL AST 21 (5-37) U/L ALT 41 H (0-40) U/L Alkaline Phosphatase 62 D (39-117) U/L Troponin I High Sens (<3.5-35.0) ng/L Total Protein 5.9 L D (6.5-8.0) g/dL Albumin 3.7 (3.5-5.0) g/dL Urine Color YELLOW Urine Appearance CLEAR Urine pH 6.0 (5.0-8.0) Ur Specific Cullen 1.020 (1.005-1.025) Urine Protein NEG (NEG-TRACE) MG/DL Urine Glucose (UA) >=1000 H (NEG) MG/DL Urine Ketones NEG (NEG) MG/DL Urine Blood TRACE (NEG) Urine Nitrite NEG (NEG) Ur Leukocyte Esterase NEG (NEG) Urine RBC 1-4 (0) /HPF Urine WBC 0 (0-4) /HPF Ur Squamous Epith Cells 1+ /LPF Urine Bacteria NONE /LPF COVID-19 ([facility]ATE) (Negative) COVID-19 Clin Com Discharge Plan Discharge Clinical Impression: Acute chest wall pain Patient Disposition: Home, Self-Care Instructions: Chest Wall Pain (ED) Additional Instructions: Your workup in the emergency department so far is reassuring. Take pain medications. Return tomorrow for the lung scan. Be sure to call the number provided. Follow-up with your cdl service technician, Dr. Saba Prescriptions: No Action aspirin 81 mg tablet,delayed release (DR/EC) 81 mg PO DAILY Qty: 90 RF: 3 metoprolol tartrate 50 mg tablet 50 mg PO BID Qty: 180 RF: 1 rosuvastatin 40 mg tablet 40 mg PO DAILY Qty: 90 RF: 6 pregabalin 150 mg capsule 150 mg PO BID PRN (Reason: pain) 30 Days Qty: 60 RF: 3 Dulera 200-5 mcg/actuation HFA aerosol inhaler 2 puff inhalation Q12H 30 Days Qty: 13 RF: 11 alcohol swabs [BD Alcohol Swabs] Pads, Medicated 1 pad topical BID 90 Days Qty: 200 RF: 3 fluoxetine 40 mg capsule 40 mg PO DAILY 90 Days Qty: 90 RF: 2 metformin 750 mg tablet extended release 24 hr 1,500 mg PO DAILY 30 Days Qty: 60 RF: 3 lisinopril 10 mg tablet 10 mg PO DAILY Qty: 90 RF: 3 Trulicity 0.75 mg/0.5 mL pen injector 0.75 mg subcut QWEEK 30 Days Qty: 2.5 RF: 6 benzonatate [Tessalon Perles] 100 mg capsule 100 mg PO BID-TID PRN (Reason: cough) 10 Days Qty: 30 RF: 0 omeprazole 20 mg capsule,delayed release(DR/EC) 20 mg PO BID 90 Days Qty: 180 RF: 2 cholecalciferol (vitamin D3) 50 mcg (2,000 unit) capsule 50 mcg PO DAILY 30 Days Qty: 30 RF: 6 tamsulosin 0.4 mg capsule 0.4 mg PO BEDTIME Qty: 14 RF: 0 naproxen [Naprosyn] 500 mg tablet 500 mg PO BID Qty: 20 RF: 0 ondansetron HCl [Zofran] 4 mg tablet 4 mg PO Q8H PRN (Reason: nausea and vomiting) Qty: 10 RF: 0 (DME) FreeStyle Lite Strips Strip See Rx Instructions .MEDSUPPLY Qty: 150 RF: 6 ezetimibe 10 mg tablet 10 mg PO DAILY Qty: 90 RF: 2 pyridoxine (vitamin B6) 100 mg tablet 100 mg PO DAILY Qty: 90 RF: 1 allopurinol 100 mg tablet 100 mg PO DAILY Qty: 90 RF: 3 (DME) pen needle, diabetic 32 gauge x 5/32 needle See Rx Instructions ea .ROUTE .MEDSUPPLY Qty: 50 RF: 0 ciclopirox 8 % solution topical DAILY RF: 0 albuterol sulfate 2.5 mg /3 mL (0.083 %) solution for nebulization 2.5 mg inhalation Q8H PRN (Reason: shortness of breath or wheezing) 30 Days Qty: 90 RF: 11 albuterol sulfate 90 mcg/actuation HFA aerosol inhaler 2 inh inhalation Q6H PRN (Reason: shortness of breath or wheezing) 30 Days Qty: 18 RF: 12 budesonide-formoterol [Symbicort] 160-4.5 mcg/actuation HFA aerosol inhaler 2 puff inhalation BID 30 Days Qty: 10.2 RF: 11 Trelegy Ellipta 100-62.5-25 mcg blister with device 1 inh inhalation DAILY 30 Days Qty: 60 RF: 11 levofloxacin 500 mg tablet 500 mg PO DAILY 14 Days Qty: 14 RF: 0 prednisone 20 mg tablet See Rx Instructions PO DAILY 10 Days Qty: 15 RF: 0 codeine-guaifenesin 10-100 mg/5 mL liquid 10 ml PO Q6H PRN (Reason: cough) 10 Days Qty: 300 RF: 0 Referrals: Renato Saba MD [Physician] - 2 days
[2021-08-03] MEDS: ondansetron HCL 4 MG/2 ML VIAL IVPUSH ×2 (19:44→21:39)
[2021-08-03] MEDS: Ketorolac Tromethamine 15 MG/ML VIAL 30 MG IVPUSH (19:44)
[2021-08-03] MEDS: 0.9 % Sodium Chloride 500 ML IV (19:44)
[2021-08-03 19:46] LABS: MANUAL DIFF FLAG NO
[2021-08-03 19:48] LABS: Basophils Percent Auto 0.4 % (0-2); Eosinophils Absolute Auto 0.2 X10*3/uL (0.0-0.4); Eosinophils Percent Auto 2.9 % (0-4); Hematocrit 43.5 % (42.0-52.0); Hemoglobin 14.1 g/dl (14.0-18.0); Imm Gran Abs Auto 0.01 X10*3/uL (0.00-0.03); Imm Gran Pct Auto 0.2 % (0.0-0.4); Lymphocytes Absolute Auto 1.8 X10*3/uL (1.2-4.9); Mean Corpuscular HGB Conc 32.4 g/dl (31.0-36.0); Mean Corpuscular Volume 80.3 fL (80.0-98.0); Mean Platelet Volume 10.9 fL (9.4-12.4); Monocytes Absolute Auto 0.4 X10*3/uL (0.1-1.2); Monocytes Percent Auto 7.2 % (2-11); Neutrophils Absolute Auto 2.91 x10*3/uL (2.0-8.3); Neutrophils Percent Auto 55.3 % (45-73); Platelet Count 208 X10*3/uL (160-400); Red Blood Count 5.42 X10*6/uL (4.60-5.80); Red Cell Distribution Width 14.5 % (11.0-16.0); White Blood Count 5.3 X10*3/uL (4.8-10.8)
[2021-08-03 19:50] VITALS: BP 141/66; PULSE 55; RESP 16; O2SAT 97
[2021-08-03 20:04] LABS: COVID-19 Test Negative (Negative); IDNOW Serial# 9DD0AD1C
[2021-08-03 20:05] LABS: Appearance Urine CLEAR; Color Urine YELLOW; Glucose Urine UA >=1000 MG/DL (NEG); Leukocyte Esterase Urine NEG (NEG); Nitrite Urine NEG (NEG); UACC Culture Trigger NO; Urine Blood TRACE (NEG); Urine Ketones NEG (NEG); Urine Protein NEG (NEG-TRACE)
[2021-08-03 20:12] LABS: Troponin-I High Sensitivity < 3.5 ng/L (<3.5-35.0)
[2021-08-03 20:17] LABS: Squamous Epithelial Cell Urine 1+ /LPF; WBC Urine 0 /HPF (0-4)
[2021-08-03 20:22] LABS: D Dimer < 200 NG/ML
[2021-08-03 20:32] LABS: Alanine Aminotransferase 41 U/L (0-40); Albumin Level 3.7 g/dL (3.5-5.0); Alkaline Phosphatase 62 U/L (39-117); Anion Gap 11 (12-20); Aspartate Amino Transferase 21 U/L (5-37); Bilirubin Total 0.6 mg/dL (0.0-1.0); Blood Urea Nitrogen 12 mg/dL (9-16); Calcium 8.5 mg/dL (8.4-10.2); Carbon Dioxide 26 mmol/L (22-29); Chloride 107 mmol/L (96-108); Creatinine Clr Calc Pharmacy 106.5; Estimated Glomerular Filt Rate > 60; Glucose Random 336 mg/dL (60-115); Sodium 140 mmol/L (135-145); Total Protein 5.9 g/dL (6.5-8.0)
[2021-08-03 21:38] VITALS: RESP 16
[2021-08-03] MEDS: fentaNYL citrate/PF 100 MCG/2 ML VIAL 50 MCG IVPUSH (21:38)
== END 2021-08-03 21:51 | disposition home or self-care (01) ==
PROVIDERS: Emergency Provider Emergency Medicine; PCP Internal Medicine
DX: R07.89 Other chest pain (principal); I10 Essential (primary) hypertension; E11.9 Type 2 diabetes mellitus without complications; I25.10 Atherosclerotic heart disease of native coronary artery without angina pectoris; Z91.041 Radiographic dye allergy status; Z87.442 Personal history of urinary calculi; Z20.822 Contact with and (suspected) exposure to COVID-19
CPT/HCPCS: 36415; 71046; 74176; 80053; 81001; 81003; 84484; 85025; 85379; 87635; 93005; 96361; 96374; 96375; 96376; 99284; J1885; J2405; J3010

== ENCOUNTER → 2021-08-04 11:14 | Outpatient (REF) | payer OTHER, SELFPAY ==
--- NOTE | ~2021-08-04 | NM_ITS ---
EXAMINATION: PULMONARY PERFUSION STUDY CLINICAL INFORMATION: Left-sided pleuritic chest pain, rule out pulmonary embolism. Severe refluxes from contrast. COMPARISON: No previous lung scan is available for comparison. Radiographs the chest dated 08/03/2021 are available for comparison. TECHNIQUE: Following the intravenous injection of 4.0 mCi Tc-99m MAA, a 6-view perfusion study was performed using a gamma scintillation camera. FINDINGS: No segmental perfusion defects are present. There is homogeneous distribution of activity bilaterally. There are no focal anatomic appearing perfusion defects present. NM/NM pul perfusion IMPRESSION: Normal radionuclide lung perfusion scan.
== END ==
LOC: HO.NUCMED 11:14
PROVIDERS: PCP Internal Medicine; Visit Provider Emergency Medicine
DX: E11.65 Type 2 diabetes mellitus with hyperglycemia (principal); E11.42 Type 2 diabetes mellitus with diabetic polyneuropathy; E11.21 Type 2 diabetes mellitus with diabetic nephropathy; Z79.4 Long term (current) use of insulin; E78.5 Hyperlipidemia, unspecified; I10 Essential (primary) hypertension; E66.9 Obesity, unspecified; Z68.31 Body mass index [BMI] 31.0-31.9, adult; E55.9 Vitamin D deficiency, unspecified; R07.81 Pleurodynia
CPT/HCPCS: 78580; 82947; 83036; 99212; A9540

== ENCOUNTER 2021-08-17 12:40 | Outpatient (REF) | payer OTHER, SELFPAY ==
[2021-08-17 13:06] LABS: Appearance Urine CLEAR; Color Urine YELLOW; Glucose Urine UA 250 MG/DL (NEG); Leukocyte Esterase Urine NEG (NEG); Nitrite Urine NEG (NEG); Specific Gravity - Urine >= 1.030 (1.005-1.025); UACC Culture Trigger NO; Urine Blood 1+ (NEG); Urine Ketones NEG (NEG); Urine Protein TRACE MG/DL (NEG-TRACE)
[2021-08-17 14:10] LABS: Mucus Urine 1+ /LPF; Squamous Epithelial Cell Urine TRACE /LPF; WBC Urine 0-2 /HPF (0-4)
== END 2021-08-17 12:41 | disposition home or self-care (01) ==
LOC: HO.LNP 12:40
PROVIDERS: Visit Provider Internal Medicine
DX: R30.0 Dysuria (principal)
CPT/HCPCS: 81001; 81003

== ENCOUNTER → 2021-08-21 09:57 | Outpatient (REF) | payer OTHER, SELFPAY ==
--- NOTE | 2021-08-21 11:27 | ECG_ITS ---
Test Reason : r07.81 Blood Pressure : / mmHG Vent. Rate : 076 BPM Atrial Rate : 076 BPM P-R Int : 180 ms QRS Dur : 086 ms QT Int : 378 ms P-R-T Axes : 062 -05 040 degrees QTc Int : 425 ms Normal sinus rhythm Normal ECG When compared with ECG of 03-AUG-2021 19:59, T wave inversion no longer evident in Inferior leads Referred By: Renato Saba Electronically Signed By:MARY SWAN MD
== END ==
LOC: HO.CARD 09:57
PROVIDERS: PCP Internal Medicine; Visit Provider Hospitalist
DX: R07.81 Pleurodynia (principal); G47.33 Obstructive sleep apnea (adult) (pediatric); B94.8 Sequelae of other specified infectious and parasitic diseases; J45.40 Moderate persistent asthma, uncomplicated; M54.10 Radiculopathy, site unspecified
CPT/HCPCS: 93005; 99212

== ENCOUNTER 2021-09-08 16:39 | Outpatient (REF) | payer OTHER, SELFPAY ==
--- NOTE | ~2021-09-08 | MR_ITS ---
EXAMINATION: MR THORACIC SPINE WITHOUT CONTRAST CLINICAL INFORMATION: Radiculopathy. COMPARISON: CT scan of the chest 07/09/2021. TECHNIQUE: MRI of the thoracic spine was obtained using routine sequences without contrast. FINDINGS: Alignment is normal. Vertebral body heights are preserved. No acute bone marrow signal changes. There is loss of intervertebral disc height and T2 signal intensity at multiple levels related to disc degeneration. There are a few shallow protrusions and/or bulging discs causing indentation of the thecal sac. For instance at T2-T3 there is a left central protrusion that causes abutment along the left ventrolateral surface of the thoracic cord and subtle displacement of the cord within the canal. Similarly a right central protrusion at T5-T6 causes subtle abutment along the right ventral surface of the thoracic cord. Otherwise no canal compromise. No overt cord compression and no abnormal intramedullary signal changes. No neuroforaminal encroachment within the thoracic spine. Limited visualization of intrathoracic anatomy reveals no abnormal finding. Specifically no paraspinal soft tissue mass or collection. MR/MR thoracic spine wo con IMPRESSION: There are are a few shallow protrusions and/or bulging discs at multiple levels within the thoracic spine. No canal or neuroforaminal compromise. No cord compression or abnormal intramedullary signal changes.
== END 2021-09-08 16:40 | disposition home or self-care (01) ==
LOC: HO.MRI 16:39
PROVIDERS: Visit Provider Hospitalist
DX: M54.10 Radiculopathy, site unspecified (principal); R07.9 Chest pain, unspecified
CPT/HCPCS: 72146

== ENCOUNTER → 2021-09-10 10:25 | Outpatient (BNVA) | payer OTHER, SELFPAY | PROVIDERS: PCP Internal Medicine; Referring Provider Internal Medicine; Visit Provider Internal Medicine Cardiovascular Disease | DX: I25.10 Atherosclerotic heart disease of native coronary artery without angina pectoris (principal); I10 Essential (primary) hypertension; R07.9 Chest pain, unspecified | CPT/HCPCS: 99212 ==

== ENCOUNTER 2021-09-14 12:01 | Outpatient (REF) | payer OTHER, SELFPAY ==
[2021-09-14 13:07] LABS: Appearance Urine CLEAR; Color Urine YELLOW; Glucose Urine UA >=1000 MG/DL (NEG); Leukocyte Esterase Urine NEG (NEG); Nitrite Urine NEG (NEG); PH 5.5 (5.0-8.0); Urine Blood 3+ (NEG); Urine Ketones NEG (NEG); Urine Protein NEG (NEG-TRACE)
[2021-09-14 14:34] LABS: Granular Casts Urine 0-2 /LPF; RBC Urine 50-75 /HPF (0); WBC Urine 0 /HPF (0-4)
== END 2021-09-14 12:02 | disposition home or self-care (01) ==
LOC: HO.LAB 12:01
PROVIDERS: PCP Internal Medicine; Visit Provider Urology
DX: N13.8 Other obstructive and reflux uropathy (principal); N40.1 Benign prostatic hyperplasia with lower urinary tract symptoms
CPT/HCPCS: 81001; 87086

== ENCOUNTER → 2021-09-18 09:19 | Outpatient (BNVA) | payer OTHER, SELFPAY | PROVIDERS: PCP Internal Medicine; Visit Provider Registered Nurse Diabetes Educator | DX: E11.42 Type 2 diabetes mellitus with diabetic polyneuropathy (principal); Z79.4 Long term (current) use of insulin; G47.33 Obstructive sleep apnea (adult) (pediatric); R07.81 Pleurodynia; J45.40 Moderate persistent asthma, uncomplicated; M54.10 Radiculopathy, site unspecified; R31.9 Hematuria, unspecified; B94.8 Sequelae of other specified infectious and parasitic diseases | CPT/HCPCS: 99211; 99212 ==

== ENCOUNTER 2021-09-21 18:44 | Emergency (ER) | payer OTHER, SELFPAY | END 2021-09-21 23:48 | disposition left against medical advice (07) | PROVIDERS: Emergency Provider Emergency Medicine; PCP Internal Medicine | DX: R31.9 Hematuria, unspecified (principal) ==

== ENCOUNTER 2021-09-24 17:12 | Outpatient (REF) | payer OTHER, SELFPAY | END 2021-09-24 17:13 | disposition home or self-care (01) | LOC: HO.LNP 17:12 | PROVIDERS: Visit Provider Internal Medicine | DX: Z13.89 Encounter for screening for other disorder (principal) ==

== ENCOUNTER 2021-09-28 10:33 | Outpatient (REF) | payer OTHER, SELFPAY ==
[2021-10-02 02:12] LABS: Stone Source KIDNEY STONE
== END 2021-09-28 10:34 | disposition home or self-care (01) ==
LOC: HO.LAB 10:33
PROVIDERS: Visit Provider Internal Medicine
DX: E11.42 Type 2 diabetes mellitus with diabetic polyneuropathy (principal); N20.0 Calculus of kidney
CPT/HCPCS: 82365; 88300; 99211

== ENCOUNTER → 2021-10-14 10:31 | Outpatient (BNVA) | payer OTHER, SELFPAY | PROVIDERS: PCP Internal Medicine; Visit Provider Registered Nurse Diabetes Educator | DX: E11.42 Type 2 diabetes mellitus with diabetic polyneuropathy (principal); Z79.4 Long term (current) use of insulin; Z79.84 Long term (current) use of oral hypoglycemic drugs | CPT/HCPCS: 99211 ==

== ENCOUNTER → 2021-10-19 08:58 | Outpatient (BNVA) | payer OTHER, SELFPAY | PROVIDERS: PCP Internal Medicine; Visit Provider Internal Medicine | DX: M48.02 Spinal stenosis, cervical region (principal); M96.1 Postlaminectomy syndrome, not elsewhere classified; R07.89 Other chest pain | CPT/HCPCS: 99202 ==

== ENCOUNTER → 2021-10-20 09:52 | Outpatient (BNVA) | payer OTHER, SELFPAY | PROVIDERS: PCP Internal Medicine; Visit Provider Nurse Practitioner Gerontology | DX: E11.65 Type 2 diabetes mellitus with hyperglycemia (principal); E11.42 Type 2 diabetes mellitus with diabetic polyneuropathy; E78.5 Hyperlipidemia, unspecified; E66.9 Obesity, unspecified; E55.9 Vitamin D deficiency, unspecified; I10 Essential (primary) hypertension; Z79.4 Long term (current) use of insulin | CPT/HCPCS: 82947; 83036; 99212 ==

== ENCOUNTER → 2021-10-23 10:17 | Outpatient (BNVA) | payer OTHER, SELFPAY | PROVIDERS: PCP Internal Medicine; Visit Provider Hospitalist | DX: R07.81 Pleurodynia (principal); G47.33 Obstructive sleep apnea (adult) (pediatric); J45.40 Moderate persistent asthma, uncomplicated; B94.8 Sequelae of other specified infectious and parasitic diseases; M54.10 Radiculopathy, site unspecified | CPT/HCPCS: 99212 ==

== ENCOUNTER 2021-10-27 09:52 | Emergency (ER) | payer OTHER, SELFPAY ==
--- NOTE | ~2021-10-27 | XR_ITS ---
EXAMINATION: XR CHEST CLINICAL INFORMATION: SOB and cough COMPARISON: None TECHNIQUE: 2 views of the chest were obtained. FINDINGS: No significant abnormality is noted involving the heart, lungs, mediastinum, bony thorax or soft tissues. XR/XR chest 2V IMPRESSION: Unremarkable chest examination.
[2021-10-27 10:04] VITALS: BP 144/78; PULSE 88
[2021-10-27 10:11] VITALS: BP 158/93; PULSE 89; RESP 18; TEMP 36.8; O2SAT 96; BMI 25.3
--- NOTE | 2021-10-27 10:35 | ECG_ITS ---
Test Reason : chest tightness Blood Pressure : / mmHG Vent. Rate : 081 BPM Atrial Rate : 081 BPM P-R Int : 174 ms QRS Dur : 088 ms QT Int : 366 ms P-R-T Axes : 047 -13 001 degrees QTc Int : 425 ms Normal sinus rhythm Minimal voltage criteria for LVH, may be normal variant ( R in aVL ) Borderline ECG When compared with ECG of 21-AUG-2021 11:35, Nonspecific T wave abnormality now evident in Inferior leads Nonspecific T wave abnormality no longer evident in Lateral leads Referred By: Jay Kolb Electronically Signed By:LADI HAYES MD
--- NOTE | 2021-10-27 10:38 | ED_ITS ---
HPI - General Adult General Chief complaint: Upper Respiratory Symptoms Stated complaint: DIFF BREATHING,FEVER,COUGH,N/V Time Seen by Provider: 10/27/21 10:35 Source: patient Limitations: no limitations History of Present Illness HPI narrative: This is a 56-year-old male with a history of hypertension and diabetes, states he had COVID about a year ago, complains of flu-like symptoms the last 3 days with rhinorrhea/nasal congestion, mild cough, some shortness of breath and chest discomfort. Denies any nausea vomiting or diarrhea or abd ominal pain. He denies any swelling in his extremities. He has not been immunized for COVID. Related Data Home Medications Medication Instructions Recorded Confirmed pen needle, diabetic 32 gauge x #50 ea 03/25/21 10/20/21 Previous Rx's Medication Instructions Recorded tamsulosin 0.4 mg capsule 0.4 mg PO BEDTIME #14 cap 08/06/20 pyridoxine (vitamin B6) 100 mg 100 mg PO DAILY #90 tab 10/02/20 tablet aspirin 81 mg tablet,delayed 81 mg PO DAILY #90 tab 02/09/21 release rosuvastatin 40 mg tablet 40 mg PO DAILY #90 tab 04/14/21 albuterol sulfate 2.5 mg (3 mL) INHALATION Q8H PRN 05/22/21 30 Days #90 ml albuterol sulfate 90 mcg/actuation 2 inh INHALATION Q6H PRN 30 Days 05/22/21 aerosol inhaler #18 g budesonide-formoterol HFA 160 2 puff INHALATION BID 30 Days 05/22/21 mcg-4.5 mcg/actuation aerosol #10.2 g inhaler (Symbicort) mometasone-formoterol HFA 200 2 puff INHALATION Q12H 30 Days #13 05/25/21 mcg-5 mcg/actuation aerosol g inhaler (Dulera) alcohol swabs (BD Alcohol Swabs) 1 pad TOPICAL BID 90 Days #200 ea 06/09/21 fluoxetine 40 mg capsule 40 mg PO DAILY 90 Days #90 cap 06/09/21 lisinopril 10 mg tablet 10 mg PO DAILY #90 tab 07/03/21 benzonatate 100 mg capsule 100 mg PO BID-TID PRN 10 Days #30 07/13/21 (Lee Robin) cap omeprazole 20 mg capsule,delayed 20 mg PO BID 90 Days #180 cap 10/19/21 release cholecalciferol (vitamin D3) 50 50 mcg PO DAILY 30 Days #30 cap 08/03/21 mcg (2,000 unit) capsule lidocaine 5 % topical patch 1 patch TOPICAL DAILY 30 Days #30 08/04/21 (Lidoderm) ea flash glucose scanning reader #1 ea 08/11/21 (FreeStyle [place]ida 2 [place]) flash glucose sensor (FreeStyle #2 ea 08/11/21 Eneida 2 Sensor) insulin aspart U-100 100 unit/mL 4 - 16 unit (0.04 - 0.16 mL) 08/11/21 (3 mL) subcutaneous pen (Novolog SUBCUT QID #30 ml Flexpen U-100 Insulin aspart) tiotropium bromide 2.5 2 puff INHALATION DAILY 90 Days #3 08/21/21 mcg/actuation mist for inhalation ea (Spiriva Respimat) metoprolol tartrate 50 mg tablet 50 mg PO BID #180 tab 09/01/21 umeclidinium 62.5 mcg/actuation 1 inh INHALATION DAILY 30 Days #30 09/03/21 blister powder for inhalation ea (Incruse Ellipta) phenazopyridine 100 mg tablet 200 mg PO TID 3 Days #18 tab 09/18/21 ezetimibe 10 mg tablet 10 mg PO DAILY #90 tab 09/21/21 metformin 750 mg tablet,extended 1,500 mg PO DAILY 30 Days #60 tab 09/21/21 release 24 hr pregabalin 150 mg capsule 150 mg PO BID PRN 30 Days #60 cap 09/30/21 blood sugar diagnostic (FreeStyle #150 ea 10/08/21 Lite Strips) allopurinol 100 mg tablet 100 mg PO DAILY #90 tab 10/14/21 dulaglutide 3 mg/0.5 mL 3 mg (0.5 mL) SUBCUT QWEEK 28 Days 10/14/21 subcutaneous pen injector #2 ml (Trulicity) empagliflozin 10 mg tablet 10 mg PO QAM #30 tab 10/20/21 (Jardiance) insulin glargine 100 unit/mL (3 12 unit (0.12 mL) SUBCUT QAM #15 ml 10/20/21 mL) subcutaneous pen (Lantus Solostar U-100 Insulin) eszopiclone 2 mg tablet (Lunesta) 2 mg PO BEDTIME #30 tab 10/23/21 Allergies Allergy/AdvReac Type Severity Reaction Status Date / Time morphine [Morphine] Allergy Severe HIVES, Verified 10/20/21 10:17 THROAT CLOSES penicillin G [Penicillin G] Allergy Severe ANAPHYLAXIS Verified 10/20/21 10:17 Sulfa (Sulfonamide Allergy Severe ANAPHYLAXIS Verified 10/20/21 10:17 Antibiotics) [SULFA (SULFONAMIDE ANTIBIOTICS)] Gadolinium-Containing Allergy Intermediate Hives/Rash, Verified 10/20/21 10:17 Contrast Medi dizziness, [Gadolinium-Containing blue spots Agents] Iodinated Contrast Media Allergy Intermediate hives,rash Verified 10/20/21 10:17 tramadol AdvReac Gastrointestinal Verified 10/20/21 10:17 Upset Review of Systems Constitutional: Constitutional: Reports as per HPI, Reports fever(s) and Reports malaise Eyes: Eyes: Reports no additional eye complaints ENT: Denies sore throat Cardiovascular: Cardiovascular: Reports no additional cardiovascular complaints and Reports dyspnea Respiratory: Respiratory: Reports no additional respiratory complaints and Reports dyspnea Gastrointestinal: Gastrointestinal: Reports as per HPI Musculoskeletal: Musculoskeletal: Reports no additional musculoskeletal complaints Neurologic: Reports system reviewed and no additional complaints, except as documented and Denies Sensory deficit (Neuro) [facility] Past Medical History Medical History Arthritis Asthma Back pain CAD (coronary artery disease) Cervical radiculopathy Chest pain COVID-19 Degenerative cervical spinal stenosis Depression Diabetic polyneuropathy associated with type 2 diabetes mellitus Dyslipidemia Elevated cholesterol Failed back syndrome of lumbar spine GERD (gastroesophageal reflux disease) History of 2019 novel coronavirus disease (COVID-19) History of ADHD History of fatty infiltration of liver History of pneumonia HTN (hypertension) Hypogonadism Lumbar post-laminectomy syndrome Nephrolithiasis Neuropathic pain Obesity (BMI 30-39.9) Obstructive sleep apnea On beta mitra at home SONY (obstructive sleep apnea) Pleuritic chest pain Pneumonia Post herpetic neuralgia 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 Reactive airway disease Sleep apnea Type 2 diabetes mellitus with hyperglycemia Vitamin D deficiency Surgical History Gynecomastia H/O colonoscopy History of carpal tunnel release History of elbow surgery History of esophagogastroduodenoscopy (EGD) History of kidney surgery Hx laparoscopic cholecystectomy Hx of arthroscopic knee surgery Hx of cardiac catheterization Hx of lumbar discectomy Hx of shoulder surgery Family History Family History Father Diabetes Hypertension Myocardial infarction Mother Diabetes Stroke Alzheimers disease Pacemaker Brother Diabetes Heart problem Myocardial infarction Sister Myocardial infarction Maternal Grandmother Myocardial infarction Social History Social History Household Members: Spouse and Family Housing: Apartment Are you a primary insurance healthcare representative to a significant other at home: No Do you presently have visiting nurse or other home services: No Alcohol intake: never Patient Tobacco Use Status: Never used Tobacco e-Cigarette/Vaping Use: Never Used Second Hand Smoke Exposure: No Advance Directives: No Advance Directives Information Provided: No service: No Current occupational status: disabled Physical Exam Vital Signs: Vital Signs: Last Vital Signs Temp 98.2 F 10/27/21 10:11 Pulse 89 10/27/21 10:11 Resp 18 10/27/21 10:11 BP 158/93 H 10/27/21 10:11 Pulse Ox 96 10/27/21 10:11 BMI result Body Mass Index 25.3 Const: General: cooperative, no acute distress and alert Orientation/ consciousness: patient oriented x3 HENMT: Head: Yes normal to inspection Eyes: General: appearance normal, both eyes and all related structures Eyelids: Yes eyelids normal Conjunctivae: conjunctivae normal Pupils: Equal, round and reactive pupils present Neck: Neck: Yes normal visual inspection and Yes supple Chest: Chest palpation & inspection: normal inspection of the chest Resp: Effort & Inspection: normal respiratory effort Auscultation: clear to auscultation bilaterally Cardio: Rate: regular rate Rhythm: regular rhythm Heart sounds: S1 normal heart sound present, S2 normal heart sound present, no gallops, no murmurs and no rubs GI: Palpation (GI): Soft to palpation, nontender and Other GI palpation findings present (Non-distended) Auscultation: normal bowel sounds Skin: General skin exam: no rashes or lesions noted Neuro: General: patient oriented x3, no focal motor deficits and CN's II-XI intact bilaterally Cranial nerves: Yes Equal, round and reactive pupils present Cognition (Neuro): normal cognition Motor exam (neuro): 5/5 motor strength present throughout Sensory Exam: No Sensory deficit (Neuro) Extrem: General: Yes normal to inspection and Yes no pedal edema Psych: Appearance: grossly normal Affect: normal affect Medical Decision Making MDM Narrative Medical decision making narrative: Patient with symptoms consistent with a viral syndrome. Patient had COVID a year ago. COVID test today is negative. Chest x-ray unremarkable. Labs unremarkable. Pulse oximetry is normal. Patient feels some dyspnea but likely this is due to the viral syndrome. No evidence of pneumonia. Lab Data Result diagrams: 10/27/21 11:51 10/27/21 11:51 Labs: Lab Results 10/27/21 10/27/21 10/27/21 Range/Units 11:39 11:51 11:51 WBC 6.6 (4.8-10.8) X10*3/uL RBC 5.16 (4.60-5.80) X10*6/uL Hgb 13.5 L (14.0-18.0) g/dl Hct 43.3 (42.0-52.0) % MCV 83.9 (80.0-98.0) fL MCH 26.2 L (27.0-33.0) pg MCHC 31.2 (31.0-36.0) g/dl RDW 14.6 (11.0-16.0) % Plt Count 213 (160-400) X10*3/uL MPV 10.5 (9.4-12.4) fL Immature Gran % (Auto) 0.3 (0.0-0.4) % Neut % (Auto) 63.3 (45-73) % Lymph % (Auto) 22.0 (20-40) % [place] % (Auto) 9.0 (2-11) % Eos % (Auto) 4.8 H (0-4) % Baso % (Auto) 0.6 (0-2) % Lymph # (Auto) 1.5 (1.2-4.9) X10*3/uL [place] # (Auto) 0.6 (0.1-1.2) X10*3/uL Eos # (Auto) 0.3 (0.0-0.4) X10*3/uL Baso # (Auto) 0.0 (0.0-0.2) X10*3/uL Abs Immat Gran (auto) 0.02 (0.00-0.03) X10*3/uL Absolute Neuts (auto) 4.2 (2.0-8.3) x10*3/uL Absolute Nucleated RBC 0.000 (0.0-0.012) X10*3/uL Nucleated RBC % (auto) 0.0 (0.0-0.2) /100WBC Smear Tech's Comments VERIFIED Sodium 144 (135-145) mmol/L Potassium 4.5 (3.3-5.1) mmol/L Chloride 109 H (96-108) mmol/L Carbon Dioxide 25 (22-29) mmol/L Anion Gap 15 (12-20) BUN 8 L (9-16) mg/dL Creatinine 0.76 (0.5-1.4) mg/dL Estim Creat Clear Calc 120.5 Estimated GFR > 60 Random Glucose 94 D (60-115) mg/dL Calcium 9.2 D (8.4-10.2) mg/dL Total Bilirubin 0.5 (0.0-1.0) mg/dL AST 23 (5-37) U/L ALT 25 (0-40) U/L Alkaline Phosphatase 75 D (39-117) U/L Troponin I High Sens (<3.5-35.0) ng/L Total Protein 7.3 D (6.5-8.0) g/dL Albumin 4.2 (3.5-5.0) g/dL COVID-19 (KATE) Negative (Negative) COVID-19 Clin Com See Note 10/27/21 Range/Units 11:51 WBC (4.8-10.8) X10*3/uL RBC (4.60-5.80) X10*6/uL Hgb (14.0-18.0) g/dl Hct (42.0-52.0) % MCV (80.0-98.0) fL MCH (27.0-33.0) pg MCHC (31.0-36.0) g/dl RDW (11.0-16.0) % Plt Count (160-400) X10*3/uL MPV (9.4-12.4) fL Immature Gran % (Auto) (0.0-0.4) % Neut % (Auto) (45-73) % Lymph % (Auto) (20-40) % [place] % (Auto) (2-11) % Eos % (Auto) (0-4) % Baso % (Auto) (0-2) % Lymph # (Auto) (1.2-4.9) X10*3/uL [place] # (Auto) (0.1-1.2) X10*3/uL Eos # (Auto) (0.0-0.4) X10*3/uL Baso # (Auto) (0.0-0.2) X10*3/uL Abs Immat Gran (auto) (0.00-0.03) X10*3/uL Absolute Neuts (auto) (2.0-8.3) x10*3/uL Absolute Nucleated RBC (0.0-0.012) X10*3/uL Nucleated RBC % (auto) (0.0-0.2) /100WBC Smear Tech's Comments Sodium (135-145) mmol/L Potassium (3.3-5.1) mmol/L Chloride (96-108) mmol/L Carbon Dioxide (22-29) mmol/L Anion Gap (12-20) BUN (9-16) mg/dL Creatinine (0.5-1.4) mg/dL Estim Creat Clear Calc Estimated GFR Random Glucose (60-115) mg/dL Calcium (8.4-10.2) mg/dL Total Bilirubin (0.0-1.0) mg/dL AST (5-37) U/L ALT (0-40) U/L Alkaline Phosphatase (39-117) U/L Troponin I High Sens < 3.5 (<3.5-35.0) ng/L Total Protein (6.5-8.0) g/dL Albumin (3.5-5.0) g/dL COVID-19 (KATE) (Negative) COVID-19 Clin Com ECG Data Attestation: I personally reviewed and interpreted this ECG as follows: Interpretation: Sinus rhythm with a rate of 81. No ST elevation or depression. Minimal voltage criteria for LVH. Discharge Plan Discharge Clinical Impression: Acute viral syndrome Patient Disposition: Home, Self-Care Instructions: Viral Syndrome (ED) Additional Instructions: Use acetaminophen for fever or aches. Drink plenty of fluid a use [id number] cough medicines such as Robitussin DM as needed. Return for any new or worsened symptoms Prescriptions: No Action aspirin 81 mg tablet,delayed release (DR/EC) 81 mg PO DAILY Qty: 90 RF: 3 rosuvastatin 40 mg tablet 40 mg PO DAILY Qty: 90 RF: 6 Dulera 200-5 mcg/actuation HFA aerosol inhaler 2 puff inhalation Q12H 30 Days Qty: 13 RF: 11 alcohol swabs [BD Alcohol Swabs] Pads, Medicated 1 pad topical BID 90 Days Qty: 200 RF: 3 fluoxetine 40 mg capsule 40 mg PO DAILY 90 Days Qty: 90 RF: 2 lisinopril 10 mg tablet 10 mg PO DAILY Qty: 90 RF: 3 benzonatate [Tessalon Perles] 100 mg capsule 100 mg PO BID-TID PRN (Reason: cough) 10 Days Qty: 30 RF: 0 omeprazole 20 mg capsule,delayed release(DR/EC) 20 mg PO BID 90 Days Qty: 180 RF: 2 cholecalciferol (vitamin D3) 50 mcg (2,000 unit) capsule 50 mcg PO DAILY 30 Days Qty: 30 RF: 6 lidocaine [Lidoderm] 5 % adhesive patch,medicated 1 patch topical DAILY 30 Days Qty: 30 RF: 4 insulin aspart U-100 [Novolog Flexpen U-100 Insulin] 100 unit/mL (3 mL) insulin pen 4 - 16 unit subcut QID Qty: 30 RF: 6 (DME) FreeStyle Eneida 2 [place] Misc See Rx Instructions .ROUTE .MEDSUPPLY Qty: 1 RF: 0 (DME) FreeStyle Ene[place] 2 Sensor Kit See Rx Instructions .ROUTE .MEDSUPPLY Qty: 2 RF: 11 metoprolol tartrate 50 mg tablet 50 mg PO BID Qty: 180 RF: 1 Incruse Ellipta 62.5 mcg/actuation blister with device 1 inh inhalation DAILY 30 Days Qty: 30 RF: 11 ezetimibe 10 mg tablet 10 mg PO DAILY Qty: 90 RF: 2 metformin 750 mg tablet extended release 24 hr 1,500 mg PO DAILY 30 Days Qty: 60 RF: 4 pregabalin 150 mg capsule 150 mg PO BID PRN (Reason: pain) 30 Days Qty: 60 RF: 3 (DME) FreeStyle Lite Strips Strip See Rx Instructions .MEDSUPPLY Qty: 150 RF: 11 Trulicity 3 mg/0.5 mL pen injector 3 mg subcut QWEEK 28 Days Qty: 2 RF: 6 allopurinol 100 mg tablet 100 mg PO DAILY Qty: 90 RF: 2 tamsulosin 0.4 mg capsule 0.4 mg PO BEDTIME Qty: 14 RF: 0 pyridoxine (vitamin B6) 100 mg tablet 100 mg PO DAILY Qty: 90 RF: 1 (DME) pen needle, diabetic 32 gauge x 5/32 needle See Rx Instructions ea .ROUTE .MEDSUPPLY Qty: 50 RF: 0 albuterol sulfate 2.5 mg /3 mL (0.083 %) solution for nebulization 2.5 mg inhalation Q8H PRN (Reason: shortness of breath or wheezing) 30 Days Qty: 90 RF: 11 albuterol sulfate 90 mcg/actuation HFA aerosol inhaler 2 inh inhalation Q6H PRN (Reason: shortness of breath or wheezing) 30 Days Qty: 18 RF: 12 budesonide-formoterol [Symbicort] 160-4.5 mcg/actuation HFA aerosol inhaler 2 puff inhalation BID 30 Days Qty: 10.2 RF: 11 phenazopyridine 100 mg tablet 200 mg PO TID 3 Days Qty: 18 RF: 0 Spiriva Respimat 2.5 mcg/actuation mist 2 puff inhalation DAILY 90 Days Qty: 3 RF: 3 Jardiance 10 mg tablet 10 mg PO QAM Qty: 30 RF: 6 Lantus Solostar U-100 Insulin 100 unit/mL (3 mL) insulin pen 12 unit subcut QAM Qty: 15 RF: 6 eszopiclone [Lunesta] 2 mg tablet 2 mg PO BEDTIME Qty: 30 RF: 3
[2021-10-27 12:06] LABS: Basophils Percent Auto 0.6 % (0-2); Eosinophils Absolute Auto 0.3 X10*3/uL (0.0-0.4); Eosinophils Percent Auto 4.8 % (0-4); Hematocrit 43.3 % (42.0-52.0); Hemoglobin 13.5 g/dl (14.0-18.0); Imm Gran Abs Auto 0.02 X10*3/uL (0.00-0.03); Imm Gran Pct Auto 0.3 % (0.0-0.4); Lymphocytes Absolute Auto 1.5 X10*3/uL (1.2-4.9); MANUAL DIFF FLAG SCAN; Mean Corpuscular HGB Conc 31.2 g/dl (31.0-36.0); Mean Corpuscular Hemoglobin 26.2 pg (27.0-33.0); Mean Corpuscular Volume 83.9 fL (80.0-98.0); Monocytes Absolute Auto 0.6 X10*3/uL (0.1-1.2); Neutrophils Absolute Auto 4.2 x10*3/uL (2.0-8.3); Neutrophils Percent Auto 63.3 % (45-73); PLT CLUMP 1; Red Blood Count 5.16 X10*6/uL (4.60-5.80); Red Cell Distribution Width 14.6 % (11.0-16.0); SCAN SMEAR FLAG 1
[2021-10-27 12:26] LABS: Mean Platelet Volume 10.5 fL (9.4-12.4); Platelet Count 213 X10*3/uL (160-400); White Blood Count 6.6 X10*3/uL (4.8-10.8)
[2021-10-27 12:27] LABS: Alanine Aminotransferase 25 U/L (0-40); Albumin Level 4.2 g/dL (3.5-5.0); Alkaline Phosphatase 75 U/L (39-117); Anion Gap 15 (12-20); Aspartate Amino Transferase 23 U/L (5-37); Bilirubin Total 0.5 mg/dL (0.0-1.0); Blood Urea Nitrogen 8 mg/dL (9-16); Calcium 9.2 mg/dL (8.4-10.2); Carbon Dioxide 25 mmol/L (22-29); Chloride 109 mmol/L (96-108); Creatinine Clr Calc Pharmacy 120.5; Estimated Glomerular Filt Rate > 60; Glucose Random 94 mg/dL (60-115); Potassium 4.5 mmol/L (3.3-5.1); SLIDE REVIEW VERIFIED; Sodium 144 mmol/L (135-145); Total Protein 7.3 g/dL (6.5-8.0)
[2021-10-27 12:32] LABS: COVID-19 Test Negative (Negative); IDNOW Serial# 9DD0AD1C
[2021-10-27 12:35] LABS: Troponin-I High Sensitivity < 3.5 ng/L (<3.5-35.0)
== END 2021-10-27 13:39 | disposition home or self-care (01) ==
PROVIDERS: Emergency Provider Emergency Medicine; PCP Internal Medicine
DX: B34.9 Viral infection, unspecified (principal); R06.02 Shortness of breath; R50.9 Fever, unspecified; R05.9 Cough, unspecified; I25.10 Atherosclerotic heart disease of native coronary artery without angina pectoris; Z20.822 Contact with and (suspected) exposure to COVID-19; Z79.899 Other long term (current) drug therapy
CPT/HCPCS: 71046; 80053; 84484; 85025; 87635; 93005; 99283

== ENCOUNTER → 2021-12-01 14:03 | Outpatient (BNVA) | payer OTHER, SELFPAY | PROVIDERS: PCP Internal Medicine; Visit Provider Nurse Practitioner Gerontology | DX: E11.42 Type 2 diabetes mellitus with diabetic polyneuropathy (principal); E78.5 Hyperlipidemia, unspecified; E66.9 Obesity, unspecified; E55.9 Vitamin D deficiency, unspecified; I10 Essential (primary) hypertension; Z79.84 Long term (current) use of oral hypoglycemic drugs | CPT/HCPCS: 82947; Q3014 ==

== ENCOUNTER → 2021-12-10 12:35 | Outpatient (BNVA) | payer OTHER, SELFPAY | PROVIDERS: PCP Internal Medicine; Visit Provider Registered Nurse Diabetes Educator | DX: E11.65 Type 2 diabetes mellitus with hyperglycemia (principal) | CPT/HCPCS: 99211 ==

== ENCOUNTER → 2022-01-19 12:21 | Outpatient (BNVA) | payer OTHER, SELFPAY | PROVIDERS: Visit Provider Nurse Practitioner Gerontology | DX: E11.42 Type 2 diabetes mellitus with diabetic polyneuropathy (principal); E78.5 Hyperlipidemia, unspecified; I10 Essential (primary) hypertension; E55.9 Vitamin D deficiency, unspecified; E66.9 Obesity, unspecified; Z68.31 Body mass index [BMI] 31.0-31.9, adult; Z79.899 Other long term (current) drug therapy | CPT/HCPCS: 82947; 83036; 99212 ==

== ENCOUNTER 2022-01-26 08:43 | Outpatient (REF) | payer OTHER, SELFPAY ==
[2022-01-26 12:32] LABS: Cholesterol 103 mg/dL; HDL Cholesterol 35 mg/dL; LDL Cholesterol Calculated 49 mg/dl; Triglycerides 97 mg/dL
[2022-01-28 05:25] LABS: LDL Cholesterol Direct 50 mg/dL (<100)
== END 2022-01-26 08:44 | disposition home or self-care (01) ==
LOC: HO.WFDLDS 08:43
PROVIDERS: Visit Provider Nurse Practitioner Gerontology
DX: E11.42 Type 2 diabetes mellitus with diabetic polyneuropathy (principal)
CPT/HCPCS: 36415; 80061; 83721

== ENCOUNTER → 2022-03-12 11:05 | Outpatient (BNVA) | payer OTHER, SELFPAY | PROVIDERS: Visit Provider Registered Nurse Diabetes Educator | DX: E11.65 Type 2 diabetes mellitus with hyperglycemia (principal) | CPT/HCPCS: 99211 ==

== ENCOUNTER 2022-04-15 11:05 | Outpatient (REF) | payer OTHER, SELFPAY ==
[2022-04-15 11:25] LABS: MANUAL DIFF FLAG NO
[2022-04-15 12:05] LABS: Basophils Percent Auto 0.4 % (0-2); Eosinophils Absolute Auto 0.3 X10*3/uL (0.0-0.4); Eosinophils Percent Auto 6.3 % (0-4); Hemoglobin 14.1 g/dl (14.0-18.0); Imm Gran Abs Auto 0.02 X10*3/uL (0.00-0.03); Imm Gran Pct Auto 0.4 % (0.0-0.4); Lymphocytes Absolute Auto 1.7 X10*3/uL (1.2-4.9); Lymphocytes Percent Auto 36.2 % (20-40); Mean Corpuscular Hemoglobin 25.6 pg (27.0-33.0); Mean Platelet Volume 10.1 fL (9.4-12.4); Monocytes Absolute Auto 0.4 X10*3/uL (0.1-1.2); Neutrophils Absolute Auto 2.3 x10*3/uL (2.0-8.3); Neutrophils Percent Auto 48.7 % (45-73); Platelet Count 236 X10*3/uL (160-400); Red Cell Distribution Width 14.6 % (11.0-16.0); White Blood Count 4.8 X10*3/uL (4.8-10.8)
[2022-04-15 12:40] LABS: Anion Gap 11 (12-20); Blood Urea Nitrogen 10 mg/dL (9-16); Calcium 9.1 mg/dL (8.4-10.2); Carbon Dioxide 25 mmol/L (22-29); Chloride 108 mmol/L (96-108); Estimated Glomerular Filt Rate > 60; Glucose Random 116 mg/dL (60-115); Potassium 3.8 mmol/L (3.3-5.1); Sodium 140 mmol/L (135-145)
[2022-04-15 13:07] LABS: Erythrocyte Sedimentation Rate 2 MM/HR (0-15)
[2022-04-16 07:07] LABS: HIV AB/AG Nonreactive (Nonreactive)
[2022-04-17 14:31] LABS: IgA 244 mg/dL (47-310); IgG 1220 mg/dL (600-1640); IgM 33 mg/dL (50-300)
[2022-04-20 09:32] LABS: Anti Nuclear Antibody Screen NEGATIVE (NEGATIVE)
[2022-04-20 14:07] LABS: Cyclic Citrullinated Peptide <16 UNITS
== END 2022-04-15 11:06 | disposition home or self-care (01) ==
LOC: HO.LAB 11:05
PROVIDERS: PCP Internal Medicine; Visit Provider Hospitalist
DX: M54.10 Radiculopathy, site unspecified (principal); R07.9 Chest pain, unspecified; R06.00 Dyspnea, unspecified; J45.40 Moderate persistent asthma, uncomplicated; G47.33 Obstructive sleep apnea (adult) (pediatric); R07.81 Pleurodynia; B94.8 Sequelae of other specified infectious and parasitic diseases; Z79.899 Other long term (current) drug therapy
CPT/HCPCS: 36415; 80048; 82784; 85025; 85652; 86038; 86039; 86200; 87389; 99212

== ENCOUNTER → 2022-06-29 09:40 | Outpatient (BNVA) | payer OTHER, SELFPAY | PROVIDERS: PCP Internal Medicine; Visit Provider Hospitalist | DX: R07.81 Pleurodynia (principal); G47.33 Obstructive sleep apnea (adult) (pediatric); U09.9 Post COVID-19 condition, unspecified; J45.40 Moderate persistent asthma, uncomplicated; M54.10 Radiculopathy, site unspecified; Z79.899 Other long term (current) drug therapy | CPT/HCPCS: 99212 ==

== ENCOUNTER → 2022-09-13 13:29 | Outpatient (BNVA) | payer OTHER, SELFPAY | PROVIDERS: Referring Provider Internal Medicine; Visit Provider Internal Medicine Cardiovascular Disease | DX: I25.10 Atherosclerotic heart disease of native coronary artery without angina pectoris (principal) | CPT/HCPCS: 93005; 99212 ==

== ENCOUNTER → 2022-10-11 09:45 | Outpatient (BNVA) | payer OTHER, SELFPAY | PROVIDERS: Visit Provider Hospitalist | DX: J45.50 Severe persistent asthma, uncomplicated (principal); G47.33 Obstructive sleep apnea (adult) (pediatric); R40.0 Somnolence; R06.02 Shortness of breath; R07.81 Pleurodynia; B94.8 Sequelae of other specified infectious and parasitic diseases | CPT/HCPCS: 99212 ==

== ENCOUNTER → 2022-11-15 13:39 | Outpatient (BNVA) | payer OTHER, SELFPAY | PROVIDERS: Visit Provider Hospitalist | DX: J45.40 Moderate persistent asthma, uncomplicated (principal); R07.81 Pleurodynia; G47.33 Obstructive sleep apnea (adult) (pediatric); B94.8 Sequelae of other specified infectious and parasitic diseases; M54.10 Radiculopathy, site unspecified | CPT/HCPCS: 99212 ==

== ENCOUNTER 2023-02-11 08:10 | Outpatient (REF) | payer OTHER, SELFPAY ==
--- NOTE | ~2023-02-11 | XR_ITS ---
EXAMINATION: XR SHOULDER, RIGHT CLINICAL INFORMATION: Pain. COMPARISON: None available. TECHNIQUE: AP external rotation, Grashey, scapular Y, and axillary views of the right shoulder. FINDINGS: Bony alignment and mineralization are normal. The glenohumeral joint is intact. The acromioclavicular and coracoclavicular intervals are normal. No fracture or dislocation is seen. There is calcific tendinitis of the right rotator cuff insertion. There are sclerotic bone islands noted within the right humeral head. No foreign body is seen. There is no right pneumothorax. XR/XR shoulder RT min 2V IMPRESSION: 1. No fracture or dislocation is seen. 2. There is calcific tendinitis of the right rotator cuff insertion.
== END 2023-02-11 08:11 | disposition home or self-care (01) ==
LOC: HO.HOSX 08:10
PROVIDERS: Visit Provider Physician Assistant
DX: M75.101 Unspecified rotator cuff tear or rupture of right shoulder, not specified as traumatic (principal)
CPT/HCPCS: 73030; 99202

== ENCOUNTER → 2023-02-18 13:47 | Outpatient (BNVA) | payer OTHER, SELFPAY | PROVIDERS: PCP Nurse Practitioner; Visit Provider Hospitalist | DX: R07.81 Pleurodynia (principal); J45.40 Moderate persistent asthma, uncomplicated; G47.33 Obstructive sleep apnea (adult) (pediatric); M54.10 Radiculopathy, site unspecified; U09.9 Post COVID-19 condition, unspecified | CPT/HCPCS: 99212 ==

== ENCOUNTER 2023-03-12 08:13 | Outpatient (REF) | payer OTHER, SELFPAY ==
--- NOTE | ~2023-03-12 | MR_ITS ---
EXAMINATION: MR SHOULDER WITHOUT CONTRAST, RIGHT CLINICAL INFORMATION: Rotator cuff tear, rupture of right shoulder COMPARISON: X-ray of the right shoulder January 2023 TECHNIQUE: MRI of the shoulder without contrast was performed on a high-field scanner. FINDINGS: ROTATOR CUFF: Supraspinatus: Mild heterogeneity throughout the tendon compatible with tendinosis and perhaps small areas of partial tearing but no measurable defect or tendon retraction. Muscle normal. Infraspinatus: Normal. Teres Minor: Normal. Subscapularis: Mild heterogeneity compatible with tendinosis and/or minimal intrasubstance partial tearing but no measurable defect or tendon retraction. Muscle normal. BICEPS: Normal. CORACOACROMIAL ARCH: The undersurface of the acromion is curved with no subacromial spur. There is mild arthrosis of the acromioclavicular joint. LABRUM/CAPSULE: Normal. GLENOHUMERAL JOINT/MARROW: Articular cartilage normal. Bone island in the subchondral region of the head. BURSA: Normal. MR/MR shoulder RT wo con IMPRESSION: 1. Mild abnormality of the supraspinatus and subscapularis compatible with tendinosis and perhaps small areas of partial tearing but no measurable defect or tendon retraction. 2. Mild arthrosis of the acromioclavicular joint.
== END 2023-03-12 08:14 | disposition home or self-care (01) ==
LOC: HO.MRI 08:13
PROVIDERS: Visit Provider Physician Assistant
DX: M75.101 Unspecified rotator cuff tear or rupture of right shoulder, not specified as traumatic (principal)
CPT/HCPCS: 73221

== ENCOUNTER → 2023-03-15 11:12 | Outpatient (BNVA) | payer OTHER, SELFPAY | PROVIDERS: PCP Nurse Practitioner; Visit Provider Physician Assistant | DX: M75.101 Unspecified rotator cuff tear or rupture of right shoulder, not specified as traumatic (principal) | CPT/HCPCS: 99212 ==

== ENCOUNTER → 2023-03-24 12:56 | Outpatient (BNVA) | payer OTHER, SELFPAY | PROVIDERS: PCP Nurse Practitioner; Visit Provider Orthopaedic Surgery | DX: M75.101 Unspecified rotator cuff tear or rupture of right shoulder, not specified as traumatic (principal); E11.65 Type 2 diabetes mellitus with hyperglycemia | CPT/HCPCS: 99212 ==

== ENCOUNTER 2023-05-05 13:47 | Outpatient (AMB) | payer OTHER, SELFPAY ==
--- NOTE | 2023-05-05 14:03 | MHC.OFFVIS ---
Intake Vital Signs 05/05/23 14:04 Height 6 ft Weight 198 lb BMI 26.9 Handedness Right Intake Visit Reasons: Pre-Op RT RTC Repair 05/11/23NE Intake Note: Mohit is a 58 year old - hand dominant male who presents today for a pre op appointment for his right RTC 05/11/23 NE. Patient reports Allergies empagliflozin [From Jardiance] Allergy (Severe, Verified 03/15/23 11:19) Itching morphine [Morphine] Allergy (Severe, Verified 03/15/23 11:19) HIVES, THROAT CLOSES penicillin G [Penicillin G] Allergy (Severe, Verified 03/15/23 11:19) ANAPHYLAXIS Sulfa (Sulfonamide Antibiotics) [SULFA (SULFONAMIDE ANTIBIOTICS)] Allergy (Severe, Verified 03/15/23 11:19) ANAPHYLAXIS Gadolinium-Containing Contrast Medi [Gadolinium-Containing Agents] Allergy (Intermediate, Verified 03/15/23 11:19) Hives/Rash, dizziness, blue spots Iodinated Contrast Media Allergy (Intermediate, Verified 03/15/23 11:19) hives,rash tramadol Adverse Reaction (Verified 03/15/23 11:19) Gastrointestinal Upset HPI Pre-Op RT RTC Repair 05/11/23NE HPI Details 58-year-old right hand dominant male, who is Z[place]ian speaking, presents in the office today for his preoperative history and physical exam prior to a right rotator cuff repair to be performed on 05/11/[address] Son. Patient has an allergy history, as follows: -Empagliflozin; itching -Morphine; hives, throat closes -Penicillin; anaphylaxis -Sulfa; anaphylaxis -Gadolinium-containing contrast medi; hives/rash, dizziness, blue spots -Iodinated contrast media; hives rash -Tramadol; GI upset. Patient is currently taking, as follows: -Albuterol sulfate 90 mcg/actuation aerosol inhaler 2 puffs QID PRN -Cholecalciferol (vitamin D3) 50 mcg (2,000 unit) capsule PO daily -Dulaglutide 4.5 mg/0.5 mL subcutaneous pen injector(Trulicity) subcut Qweek -Ezetimibe 10 mg tablet PO daily -Fluoxetine 40 mg capsule PO daily -Lidocaine 5 % topical patch(Lidoderm) daily -Melatonin 5 mg tablet PO bedtime PRN -Metformin 500 mg tablet, extended release 24 hr PO QAM -Metoprolol tartrate 50 mg tablet PO BID -Momentariness-formulate HFA 200 mcg-5 mcg/actuation (Dulera) 2 puffs Q12H -Omeprazole 20 mg capsule PO BID -Pregabalin 150 mg capsule PO BID -Rosuvastatin 40 mg PO Daily -Sodium chloride-aloe vera nasal spray BID PRN -Tamsulosin 0.4 mg capsule PO Daily Patient has a medical history, as follows: -Arthritis -Asthma -Coronary artery disease; 10/2019 -Cervical radiculopathy -Degenerative cervical spinal stenosis -Depression -Diabetic polyneuropathy associated with type 2 diabetes mellitus -Dyslipidemia -GERD -Hypertension -Hypogonadism -Nephrolithiasis -Obstructive sleep apnea on CPAP -Vitamin D deficiency Patient has a surgical history, as follows: -Gynecomastia; right breast 2013 -Colonoscopy; 2015 -Carpal tunnel release; 2011 right -elbow surgery; 2011 -esophagogastroduodenoscopy; 2009 -kidney surgery -laparoscopic cholecystectomy -arthroscopic knee surgery; 2018 -cardiac catheterization; 06/2017 -lumbar discectomy; 2001 -Left shoulder arthroscopy 2018 [facility] Medical History Arthritis Asthma Back pain CAD (coronary artery disease) Cervical radiculopathy Chest pain COVID-19 Degenerative cervical spinal stenosis Depression Diabetic polyneuropathy associated with type 2 diabetes mellitus Dyslipidemia Elevated cholesterol Failed back syndrome of lumbar spine GERD (gastroesophageal reflux disease) History of 2019 novel coronavirus disease (COVID-19) History of ADHD History of fatty infiltration of liver History of pneumonia HTN (hypertension) Hypogonadism Left nephrolithiasis Lumbar post-laminectomy syndrome Nephrolithiasis Neuropathic pain Obesity (BMI 30-39.9) Obstructive sleep apnea On beta mitra at home SONY (obstructive sleep apnea) Pleuritic chest pain Pneumonia Post herpetic neuralgia [id number] syndrome Reactive airway disease Sleep apnea Vitamin D deficiency Surgical History Gynecomastia H/O colonoscopy History of carpal tunnel release History of elbow surgery History of esophagogastroduodenoscopy (EGD) History of kidney surgery Hx laparoscopic cholecystectomy Hx of arthroscopic knee surgery Hx of cardiac catheterization Hx of lumbar discectomy Hx of shoulder surgery Family History Father Diabetes Hypertension Myocardial infarction Mother Diabetes Stroke Alzheimers disease Pacemaker Brother Diabetes Heart problem Myocardial infarction Sister Myocardial infarction Maternal Grandmother Myocardial infarction Social History Household Members: Spouse and Family Housing: Apartment Are you a primary child caregiver private home to a significant other at home: No Do you presently have visiting nurse or other home services: No Alcohol intake: never Patient Tobacco Use Status: Never used Tobacco e-Cigarette/Vaping Use: Never Used Second Hand Smoke Exposure: No service: No Current occupational status: disabled Review of Systems Const All systems reviewed & are unremarkable except as noted in HPI and below Physical Exam Vital Signs: BMI result Body Mass Index 26.9 Const General: cooperative, healthy appearing, comfortable, no acute distress, well developed, alert and awake Orientation/consciousness: patient oriented x3 HEENT Head: Yes normal to inspection, Yes normocephalic and Yes atraumatic Eyes General: appearance normal, both eyes and all related structures EOM: EOMs intact bilaterally Neck Neck: Yes normal visual inspection and Yes no lymphadenopathy Resp Effort & Inspection: normal respiratory effort and able to speak in complete sentences Cardio Jugular venous distension: no JVD Rate: regular rate Peripheral pulses: Peripheral pulses 2+ throughout GI Inspection: Yes normal to inspection Palpation (GI): Soft to palpation Skin General skin exam: no rashes or lesions noted Rashes: no rashes Neuro General: patient oriented x3 Extrem Other: Right Shoulder: + H&N 4+/5 empty can Pain with liftoff + O'richi's Psych Appearance: grossly normal Mental Status: mental status grossly normal Affect: normal affect Attitude: cooperative Assessment & Plan Assessment & Plan (1) Right rotator cuff tear: Code(s): M75.101 - Unspecified rotator cuff tear or rupture of right shoulder, not specified as traumatic (2) Type 2 diabetes mellitus with hyperglycemia: Code(s): E11.65 - Type 2 diabetes mellitus with hyperglycemia Plan Mr. Segovia is a 58-year-old right hand dominant male, who is Zambian speaking, presents in the office today for his preoperative history and physical exam prior to a right rotator cuff repair to be performed on 05/11/[address] Son. Patient has an allergy history, as follows: -Empagliflozin; itching -Morphine; hives, throat closes -Penicillin; anaphylaxis -Sulfa; anaphylaxis -Gadolinium-containing contrast medi; hives/rash, dizziness, blue spots -Iodinated contrast media; hives rash -Tramadol; GI upset. Patient is currently taking, as follows: -Albuterol sulfate 90 mcg/actuation aerosol inhaler 2 puffs QID PRN -Cholecalciferol (vitamin D3) 50 mcg (2,000 unit) capsule PO daily -Dulaglutide 4.5 mg/0.5 mL subcutaneous pen injector(Trulicity) subcut Qweek -Ezetimibe 10 mg tablet PO daily -Fluoxetine 40 mg capsule PO daily -Lidocaine 5 % topical patch(Lidoderm) daily -Melatonin 5 mg tablet PO bedtime PRN -Metformin 500 mg tablet, extended release 24 hr PO QAM -Metoprolol tartrate 50 mg tablet PO BID -Momentariness-formulate HFA 200 mcg-5 mcg/actuation (Dulera) 2 puffs Q12H -Omeprazole 20 mg capsule PO BID -Pregabalin 150 mg capsule PO BID -Rosuvastatin 40 mg PO Daily -Sodium chloride-aloe vera nasal spray BID PRN -Tamsulosin 0.4 mg capsule PO Daily Patient has a medical history, as follows: -Arthritis -Asthma -Coronary artery disease; 10/2019 -Cervical radiculopathy -Degenerative cervical spinal stenosis -Depression -Diabetic polyneuropathy associated with type 2 diabetes mellitus -Dyslipidemia -GERD -Hypertension -Hypogonadism -Nephrolithiasis -Obstructive sleep apnea on CPAP -Vitamin D deficiency Patient has a surgical history, as follows: -Gynecomastia; right breast 2013 -Colonoscopy; 2015 -Carpal tunnel release; 2011 right -elbow surgery; 2011 -esophagogastroduodenoscopy; 2009 -kidney surgery -laparoscopic cholecystectomy -arthroscopic knee surgery; 2018 -cardiac catheterization; 06/2017 -lumbar discectomy; 2001 -Left shoulder arthroscopy 2017 [place] I discussed in detail the procedure and what to expect pre and post operatively. We discussed the risks, benefits and alternatives to the surgery as well as the rehabilitation course. The risks; which include, but are not limited to infection, bleeding, nerve injury, ongoing pain, swelling, and stiffness, perioperative risk of injury to bones and soft tissues, and blood clots. I have answered all questions and with their understanding they have consented to move forward with a right rotator cuff repair to be performed on 05/11/[address] Nima Son. Follow up will be at the post operative appointment on 05/16/2023 at 11:00 am, or sooner if needed. Patient Instructions: Scribed for Mariaa Brito PA-C by Erin Cerda medical insurance collector, on 05/05/2023 at 1:49 pm, EST. Coding Level of Care Code Global (00696) Diagnoses Right rotator cuff tear M75.101 Type 2 diabetes mellitus with hyperglycemia E11.65
[2023-05-05 14:04] VITALS: BMI 26.9
== END 2023-05-05 14:19 | disposition home or self-care (01) ==
PROVIDERS: PCP Nurse Practitioner; Visit Provider Physician Assistant
DX: M75.101 Unspecified rotator cuff tear or rupture of right shoulder, not specified as traumatic (principal)
CPT/HCPCS: 99024

== ENCOUNTER → 2023-05-05 13:47 | Outpatient (BNVA) | payer OTHER, SELFPAY | PROVIDERS: PCP Nurse Practitioner; Visit Provider Physician Assistant | DX: R07.89 Other chest pain (principal); I25.10 Atherosclerotic heart disease of native coronary artery without angina pectoris; I10 Essential (primary) hypertension; E78.5 Hyperlipidemia, unspecified; E11.65 Type 2 diabetes mellitus with hyperglycemia; Z98.890 Other specified postprocedural states | CPT/HCPCS: 93005; 99212 ==

== ENCOUNTER 2023-05-05 14:25 | Outpatient (AMB) | payer OTHER, SELFPAY ==
--- NOTE | 2023-05-05 15:50 | A.OFFVIS_ITS ---
Intake Vital Signs 05/05/23 15:51 Height 6 ft Weight 229 lb 4.492 oz BMI 31.1 BP 140/80 H Blood Pressure Location Lt brachial Position Sitting Pulse 74 Intake Visit Reasons: pre-op Intake Note: pre-op Air Brake Worker Required: No Allergies empagliflozin [From Jardiance] Allergy (Severe, Verified 05/05/23 15:59) Itching morphine [Morphine] Allergy (Severe, Verified 05/05/23 15:59) HIVES, THROAT CLOSES penicillin G [Penicillin G] Allergy (Severe, Verified 05/05/23 15:59) ANAPHYLAXIS Sulfa (Sulfonamide Antibiotics) [SULFA (SULFONAMIDE ANTIBIOTICS)] Allergy (Severe, Verified 05/05/23 15:59) ANAPHYLAXIS Gadolinium-Containing Contrast Medi [Gadolinium-Containing Agents] Allergy (Intermediate, Verified 05/05/23 15:59) Hives/Rash, dizziness, blue spots Iodinated Contrast Media Allergy (Intermediate, Verified 05/05/23 15:59) hives,rash tramadol Adverse Reaction (Verified 05/05/23 15:59) Gastrointestinal Upset Medication List - Last Reconciled 05/05/23 by Aurea Castañeda BACK TENDER-C albuterol sulfate 90 mcg/actuation (Ventolin HFA) 2 puffs inhalation QID PRN 30 days azelastine 2 sprays intranasal BID 30 days blood sugar diagnostic (FreeStyle Lite Strips) 4 times a day blood-glucose meter (FreeStyle Lite Meter kit) As directed 4x/day blood-glucose meter,continuous (Dexcom G6 Sewer System Supervisor) As directed blood-glucose sensor (Dexcom G6 Sensor device) As directed every 10 days blood-glucose transmitter (Dexcom G6 Transmitter device) As directed one every 3 months cholecalciferol (vitamin D3) 50 mcg PO DAILY dulaglutide (Trulicity) 4.5 mg (0.5 mL) subcut QWEEK ezetimibe 10 mg PO DAILY flash glucose scanning reader (TreatfulStyle Eneida 2 [place]) As directed flash glucose sensor (FreeStyle Eneida 2 Sensor kit) As directed every 2 weeks fluoxetine 40 mg PO DAILY 90 days lancets (FreeStyle Lancets) 4 times a day lidocaine 5% (Lidoderm) 1 patch topical DAILY 30 days lisinopril 10 mg PO DAILY melatonin 5 mg PO BEDTIME PRN 30 days metformin ER 1,000 mg PO QAM metoprolol tartrate 50 mg PO BID mometasone-formoterol 200-5 mcg/actuation (Dulera) 2 puffs inhalation Q12H 30 days omeprazole 20 mg PO BID 90 days pen needle, diabetic As directed pregabalin 150 mg PO BID rosuvastatin 40 mg PO DAILY sodium chloride-aloe vera ([place] Saline Gel nasal spray) 1 spray intranasal BID 30 days tamsulosin 0.4 mg PO DAILY HPI pre-op HPI Details Mohit is a 58-year-old male with past medical history of hypertension, hyperlipidemia, diabetes, obstructive sleep apnea, mild obesity, nonobstructive coronary artery disease who presents for follow-up and preop cardiac clearance. Today he reports that for the last few weeks he has been getting an intermittent pain in the left chest that radiates down his left arm. He has had it go up to the left side of his face. He went to the dentist and they told him it was not his teeth. He describes going to the ER with this discomfort and the doctor told him that he needs to get his heart checked out. I do not have those records at this visit. He denies any of that discomfort at this time. He expresses concern that this is a heart symptom. He tells me he is scheduled for right rotator cuff surgery next week. He has no shortness of breath, palpitations, dizziness, presyncope, syncope, PND, orthopnea or edema. He has been compliant with his medications. 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 He does not recall getting this symptom brought on by physical activity. He said it can occur randomly. [facility] Medical History (Updated 05/05/23 @ 17:48 by MATTHIEU Arita) Arthritis Asthma Back pain CAD (coronary artery disease) Cervical radiculopathy Chest pain COVID-19 Degenerative cervical spinal stenosis Depression Diabetic polyneuropathy associated with type 2 diabetes mellitus Dyslipidemia Elevated cholesterol Failed back syndrome of lumbar spine GERD (gastroesophageal reflux disease) History of 2019 novel coronavirus disease (COVID-19) History of ADHD History of fatty infiltration of liver History of pneumonia HTN (hypertension) Hypogonadism Left nephrolithiasis Lumbar post-laminectomy syndrome Nephrolithiasis Neuropathic pain Obesity (BMI 30-39.9) Obstructive sleep apnea On beta mitra at home SONY (obstructive sleep apnea) Pleuritic chest pain Pneumonia Post herpetic neuralgia [id number] syndrome Reactive airway disease Sleep apnea Vitamin D deficiency Surgical History (Updated 05/05/23 @ 17:48 by Aurea Castañeda NP-C) Gynecomastia H/O colonoscopy History of carpal tunnel release History of elbow surgery History of esophagogastroduodenoscopy (EGD) History of kidney surgery Hx laparoscopic cholecystectomy Hx of arthroscopic knee surgery Hx of cardiac catheterization Hx of lumbar discectomy Hx of shoulder surgery Family History Father Diabetes Hypertension Myocardial infarction Mother Diabetes Stroke Alzheimers disease Pacemaker Brother Diabetes Heart problem Myocardial infarction Sister Myocardial infarction Maternal Grandmother Myocardial infarction Social History Household Members: Spouse and Family Housing: Apartment Are you a primary overnight caregiver to a significant other at home: No Do you presently have visiting nurse or other home services: No Alcohol intake: never Patient Tobacco Use Status: Never used Tobacco e-Cigarette/Vaping Use: Never Used Second Hand Smoke Exposure: No service: No Current occupational status: disabled Review of Systems Const All systems reviewed & are unremarkable except as noted in HPI and below ENT Reports dizziness Card Details: Chest discomfort with radiation to the left side of his face and jaw Reports chest pain, Reports chest pain at rest, Reports chest pain with activity, Denies rapid heart rate, Denies pedal edema, Denies edema, Denies leg edema, Denies lightheadedness, Denies palpitations, Denies dyspnea, Denies dyspnea on exertion and Denies orthopnea Resp Denies cough, Denies dyspnea and Denies dyspnea on exertion GI Denies hematochezia and Denies change in stool character Musc Denies abnormal gait, Reports limited range of motion, Reports muscle cramps, Denies muscle weakness, Denies numbness, Denies radiating pain into limb, Denies stiffness and Denies tingling Neuro Denies abnormal gait, Reports dizziness, Denies numbness and Denies tingling Endo Denies palpitations Physical Exam Vital Signs: Last Vital Signs Pulse 74 05/05/23 15:51 BP 140/80 H 05/05/23 15:51 BMI result Body Mass Index 31.1 Const General: cooperative, healthy appearing, comfortable and no acute distress Orientation/consciousness: patient oriented x3 Neck Neck: Yes normal visual inspection and Yes no JVD Carotids: normal carotid upstroke Resp Effort & Inspection: normal respiratory effort Auscultation: clear to auscultation bilaterally, no crackles, no rales, no rhonchi and no wheezes Cardio Jugular venous distension: no JVD Rate: regular rate Rhythm: regular rhythm Heart sounds: S1 normal heart sound present, S2 normal heart sound present, no gallops, no murmurs and no rubs Skin General skin exam: no rashes or lesions noted Neuro General: patient oriented x3 Extrem General: Yes normal to inspection Psych Appearance: grossly normal Mental Status: mental status grossly normal Speech and movement: Normal speech and movement present Office Procedures EKG Details: Today, read by me, normal sinus rhythm, no acute ST or T-wave, rate 74, QTC 428 millisecond [id number], Complete Assessment & Plan Assessment & Plan (1) Chest discomfort: Code(s): R07.89 - Other chest pain Plan: Reports of left-sided chest discomfort that he describes as being deep with radiation down his left arm to his fingers and it has gone up to the left side of his face as well. This symptom has occurred randomly without specific exertional component. He does have known history of nonobstructive coronary artery disease with cardiac catheterization 06/22/2017 showing 50% mid LAD stenosis. He has been on rosuvastatin and Zetia as well as metoprolol and lisinopril. Aspirin is not on his list for unclear reason. No aspirin allergy so will sent to his pharmacy. Since he has known nonobstructive disease and symptoms concerning for angina discussed cardiac catheterization with him. He is agreeable to this. Will further discuss with his manager simulation Dr. Ocampo. His shoulder surgery will most likely need to be postponed. Continue current med management, will add 2nd anti anginal, amlodipine 5 mg daily as blood pressure is mildly elevated. Signs and symptoms of angina discussed. Instructed on light physical activity. ED care if needed for symptoms. (2) Hx of cardiac catheterization: Comment: 06/2017 mid LAD 50% stenosis, minimal luminal irregularities seen in the left main, remainder of LAD, left circumflex, ramus and RCA Code(s): Z98.890 - Other specified postprocedural states (3) CAD (coronary artery disease): Comment: Echo October 2019 EF 60-65% June 2017, mild LAD [id number] HCS. DEnies recent chest pain. Code(s): I25.10 - Atherosclerotic heart disease of [place] coronary artery without angina pectoris Qualifiers: Coronary Disease-Associated Artery/Lesion type: [place] artery [place] vs. transplanted heart: [place] heart Associated angina: without angina Qualified Code(s): I25.10 - Atherosclerotic heart disease of [place] coronary artery without angina pectoris (4) HTN (hypertension): Code(s): I10 - Essential (primary) hypertension Qualifiers: Hypertension type: essential hypertension Qualified Code(s): I10 - Essential (primary) hypertension Plan: Mildly elevated. Adding amlodipine 5 mg daily (5) Dyslipidemia: Code(s): E78.5 - Hyperlipidemia, unspecified Plan: [place] LDL goal less than 70. Labs done 01/26/2022 shows LDL 50. At present continue current rosuvastatin and Zetia. Will needed updated lipid profile (6) Type 2 diabetes mellitus with hyperglycemia: Code(s): E11.65 - Type 2 diabetes mellitus with hyperglycemia Plan: Hemoglobin A1c goal less than 7. Labs done 01/19/2022 showed hemoglobin A1c 7.3, labs from 10/20/2021 showed hemoglobin A1c 10.5 Coding Level of Care Code Est Pt Level 4 (37240) Diagnoses Chest discomfort R07.89 Hx of cardiac catheterization Z98.890 CAD (coronary artery disease) I25.10 Coronary Disease-Associated Artery/Lesion type: [place] artery [place] vs. transplanted heart: [place] heart Associated angina: without angina HTN (hypertension) I10 Hypertension type: essential hypertension Dyslipidemia E78.5 Type 2 diabetes mellitus with hyperglycemia E11.65 CPT Codes EKG - CPT: [id number], Complete ([id number]) Time Spent (min) 36 Comment Chart review, documentation, interview, assessment, discuss with
[2023-05-05 15:51] VITALS: BP 140/80; PULSE 74; BMI 31.1
== END 2023-05-05 17:51 | disposition home or self-care (01) ==
PROVIDERS: PCP Nurse Practitioner; Visit Provider Nurse Practitioner Family
DX: R07.89 Other chest pain (principal); Z98.890 Other specified postprocedural states; I25.10 Atherosclerotic heart disease of native coronary artery without angina pectoris; I10 Essential (primary) hypertension; E78.5 Hyperlipidemia, unspecified; E11.65 Type 2 diabetes mellitus with hyperglycemia
CPT/HCPCS: 93010; 99214

== ENCOUNTER 2023-05-17 15:13 | Outpatient (REF) | payer OTHER, SELFPAY ==
[2023-05-17 15:26] LABS: MANUAL DIFF FLAG NO
[2023-05-17 15:46] LABS: Basophils Percent Auto 0.6 % (0-2); Eosinophils Absolute Auto 0.4 X10*3/uL (0.0-0.4); Eosinophils Percent Auto 6.3 % (0-4); Hematocrit 46.1 % (42.0-52.0); Hemoglobin 14.8 g/dl (14.0-18.0); Imm Gran Abs Auto 0.01 X10*3/uL (0.00-0.03); Imm Gran Pct Auto 0.2 % (0.0-0.4); Lymphocytes Absolute Auto 2.1 X10*3/uL (1.2-4.9); Lymphocytes Percent Auto 33.5 % (20-40); Mean Corpuscular HGB Conc 32.1 g/dl (31.0-36.0); Mean Corpuscular Hemoglobin 26.3 pg (27.0-33.0); Mean Platelet Volume 9.7 fL (9.4-12.4); Monocytes Absolute Auto 0.5 X10*3/uL (0.1-1.2); Monocytes Percent Auto 7.6 % (2-11); Neutrophils Absolute Auto 3.2 x10*3/uL (2.0-8.3); Neutrophils Percent Auto 51.8 % (45-73); Platelet Count 263 X10*3/uL (160-400); Red Blood Count 5.62 X10*6/uL (4.60-5.80); Red Cell Distribution Width 14.5 % (11.0-16.0); White Blood Count 6.2 X10*3/uL (4.8-10.8)
[2023-05-17 16:06] LABS: Anion Gap 12 (12-20); Blood Urea Nitrogen 8 mg/dL (9-16); Calcium 9.6 mg/dL (8.4-10.2); Carbon Dioxide 25 mmol/L (22-29); Chloride 108 mmol/L (96-108); Estimated Glomerular Filt Rate > 60; Glucose Random 96 mg/dL (60-115); Potassium 4.1 mmol/L (3.3-5.1); Sodium 141 mmol/L (135-145)
[2023-05-17 16:23] LABS: Prothrombin Time 11.7 SEC (11.1-13.3)
== END 2023-05-17 15:14 | disposition home or self-care (01) ==
LOC: HO.LAB 15:13
PROVIDERS: PCP Nurse Practitioner; Visit Provider Nurse Practitioner Family
DX: R07.89 Other chest pain (principal); Z98.890 Other specified postprocedural states
CPT/HCPCS: 36415; 80048; 85025; 85610

== ENCOUNTER → 2023-05-19 23:59 | Outpatient (BNV) | payer OTHER, SELFPAY | PROVIDERS: PCP Nurse Practitioner; Visit Provider Internal Medicine Cardiovascular Disease | DX: I20.8 Other forms of angina pectoris (principal); R07.9 Chest pain, unspecified | CPT/HCPCS: 93458; 99152 ==

== ENCOUNTER 2023-05-23 12:16 | Emergency (ER) | payer OTHER, SELFPAY ==
--- NOTE | ~2023-05-23 | XR_ITS ---
EXAMINATION: XR CHEST CLINICAL INFORMATION: Chest pain COMPARISON: 10/27/2021 TECHNIQUE: 2 views of the chest were obtained. FINDINGS: No significant abnormality is noted involving the heart, lungs, mediastinum, bony thorax or soft tissues. XR/XR chest 2V IMPRESSION: Unremarkable examination, without interval change.
--- NOTE | 2023-05-23 12:19 | ECG_ITS ---
Test Reason : chest pain Blood Pressure : / mmHG Vent. Rate : 075 BPM Atrial Rate : 075 BPM P-R Int : 178 ms QRS Dur : 088 ms QT Int : 372 ms P-R-T Axes : 070 011 031 degrees QTc Int : 415 ms Normal sinus rhythm Normal ECG When compared with ECG of 27-OCT-2021 12:31, Nonspecific T wave abnormality no longer evident in Inferior leads Referred By: Betty Dee Electronically Signed By:HIMANSHU FERNANDEZ
--- NOTE | 2023-05-23 12:31 | MHC.EDTECH ---
EKG completed and signed by attending
[2023-05-23 13:02] VITALS: BP 110/72; PULSE 77; RESP 18; TEMP 36.7; O2SAT 99; BMI 25.4
--- NOTE | 2023-05-23 13:05 | ED_ITS ---
HPI - Chest Pain General Chief Complaint: Chest Pain Stated Complaint: Chest pain/R arm pain Time Seen by Provider: 05/23/23 15:31 History of Present Illness HPI narrative: Patient 58 years old with history of coronary disease status post cardiac catheterization in 2017 with 30% mid LAD stenosis, hypertension, hyperlipidemia and obese had cardiac catheterization done on 05/19 showed same mild LAD disease comes higher again for the chest pain Related Data Home Medications Medication Instructions Recorded Confirmed pen needle, diabetic 32 gauge x #50 ea 03/25/21 05/05/23 metformin 500 mg tablet,extended 1,000 mg PO QAM 09/13/22 05/05/23 release 24 hr cholecalciferol (vitamin D3) 50 50 mcg PO DAILY 10/11/22 05/05/23 mcg (2,000 unit) capsule ezetimibe 10 mg tablet 10 mg PO DAILY 10/11/22 05/05/23 lisinopril 10 mg tablet 10 mg PO DAILY 10/11/22 05/05/23 metoprolol tartrate 50 mg tablet 50 mg PO BID 11/15/22 05/05/23 tamsulosin 0.4 mg capsule 0.4 mg PO DAILY 11/15/22 05/05/23 Previous Rx's Medication Instructions Recorded fluoxetine 40 mg capsule 40 mg PO DAILY 90 days #90 caps 06/09/21 flash glucose sensor (FreeStyle #2 ea 08/11/21 Eneida 2 Sensor kit) flash glucose scanning reader #1 ea 12/16/21 (FreeStyle Eneida 2 Wheeler) omeprazole 20 mg capsule,delayed 20 mg PO BID 90 days #180 caps 01/18/22 release blood sugar diagnostic (FreeStyle #150 ea 03/12/22 Lite Strips) blood-glucose meter (FreeStyle #1 ea 03/12/22 Lite Meter kit) blood-glucose meter,continuous #1 ea 03/12/22 (Dexcom G6 Shipwright Helper) lancets 28 gauge (FreeStyle #200 ea 03/12/22 Lancets) blood-glucose sensor (Dexcom G6 #3 ea 05/04/22 Sensor device) blood-glucose transmitter (Dexcom #1 ea 05/04/22 G6 Transmitter device) dulaglutide 4.5 mg/0.5 mL 4.5 mg (0.5 mL) subcut QWEEK #2 mL 08/13/22 subcutaneous pen injector (Trulicity) azelastine 137 mcg (0.1 %) nasal 2 spray intranasal BID 30 days #30 10/11/22 spray aerosol mL sodium chloride-aloe vera nasal 1 spray intranasal BID 30 days #22 10/11/22 spray ([place] Saline Gel nasal spray) mL lidocaine 5 % topical patch 1 patch topical DAILY 30 days #30 11/15/22 (Lidoderm) ea melatonin 5 mg tablet 5 mg PO BEDTIME PRN sleep 30 days 11/15/22 #30 tabs pregabalin 150 mg capsule 150 mg PO BID #60 caps 12/07/22 albuterol sulfate 90 mcg/actuation 2 puff inhalation QID PRN 02/18/23 aerosol inhaler (Ventolin HFA) shortness of breath or wheezing 30 days #18 grams mometasone-formoterol HFA 200 2 puff inhalation Q12H 30 days #13 02/18/23 mcg-5 mcg/actuation aerosol grams inhaler (Dulera) rosuvastatin 40 mg tablet 40 mg PO DAILY #90 tabs 05/02/23 amlodipine 5 mg tablet 5 mg PO DAILY #30 tabs 05/12/23 diphenhydramine HCl 25 mg capsule 25 mg PO BID premedication 2 days 05/13/23 (Benadryl) #3 caps famotidine 20 mg tablet (Pepcid) 20 mg PO BID Premedication 2 days 05/13/23 #3 tabs prednisone 20 mg tablet 20 mg PO BID Premedication 2 days 05/13/23 #3 tabs Allergies Allergy/AdvReac Type Severity Reaction Status Date / Time empagliflozin Allergy Severe Itching Verified 05/05/23 15:59 [From Jardiance] morphine [Morphine] Allergy Severe HIVES, Verified 05/05/23 15:59 THROAT CLOSES penicillin G [Penicillin G] Allergy Severe ANAPHYLAXIS Verified 05/05/23 15:59 Sulfa (Sulfonamide Allergy Severe ANAPHYLAXIS Verified 05/05/23 15:59 Antibiotics) [SULFA (SULFONAMIDE ANTIBIOTICS)] Gadolinium-Containing Allergy Intermediate Hives/Rash, Verified 05/05/23 15:59 Contrast Medi dizziness, [Gadolinium-Containing blue spots Agents] Iodinated Contrast Media Allergy Intermediate hives,rash Verified 05/05/23 15:59 tramadol AdvReac Gastrointestinal Verified 05/05/23 15:59 Upset PMFSH Past Medical History Medical History (Updated 05/23/23 @ 15:54 by Avinash Ortiz MD) Arthritis Asthma Back pain CAD (coronary artery disease) Cervical radiculopathy Chest pain COVID-19 Degenerative cervical spinal stenosis Depression Diabetic polyneuropathy associated with type 2 diabetes mellitus Dyslipidemia Elevated cholesterol Failed back syndrome of lumbar spine GERD (gastroesophageal reflux disease) History of 2019 novel coronavirus disease (COVID-19) History of ADHD History of fatty infiltration of liver History of pneumonia HTN (hypertension) Hypogonadism Left nephrolithiasis Lumbar post-laminectomy syndrome Nephrolithiasis Neuropathic pain Obesity (BMI 30-39.9) Obstructive sleep apnea On beta mitra at home SONY (obstructive sleep apnea) Pleuritic chest pain Pneumonia Post herpetic neuralgia [id number] syndrome Reactive airway disease Sleep apnea Vitamin D deficiency Surgical History (Updated 05/05/23 @ 17:48 by Aurea Castañeda, INDUSTRIAL LOCOMOTIVE OPERATOR-C) Gynecomastia H/O colonoscopy History of carpal tunnel release History of elbow surgery History of esophagogastroduodenoscopy (EGD) History of kidney surgery Hx laparoscopic cholecystectomy Hx of arthroscopic knee surgery Hx of cardiac catheterization Hx of lumbar discectomy Hx of shoulder surgery Family History Family History Father Diabetes Hypertension Myocardial infarction Mother Diabetes Stroke Alzheimers disease Pacemaker Brother Diabetes Heart problem Myocardial infarction Sister Myocardial infarction Maternal Grandmother Myocardial infarction Social History Social History Household Members: Spouse and Family Housing: Apartment Are you a primary healthcare management to a significant other at home: No Do you presently have visiting nurse or other home services: No Alcohol intake: never Patient Tobacco Use Status: Never used Tobacco Smoked in Last 30 Days: No e-Cigarette/Vaping Use: Never Used Second Hand Smoke Exposure: No Use of substances other than those prescribed or required for medical reasons: No Advance Directives: No Advance Directives Information Provided: Yes service: No Current occupational status: disabled Physical Exam Vital Signs: Vital Signs: Last Vital Signs Temp 97.9 F 05/23/23 15:13 Pulse 72 05/23/23 15:13 Resp 18 05/23/23 15:13 BP 122/78 05/23/23 15:13 Pulse Ox 95 05/23/23 15:13 O2 Del Method Room Air 05/23/23 15:13 BMI result Body Mass Index 25.4 Course Course Course Narrative: This is an RME: Additional HPI, ROS, PE not included below will be deferred to primary provider. This is a 58-year-old male, with a past medical history of diabetes, hyperlipidemia, and hypertension, presenting to the emergency department with complaints of chest pain that started yesterday. The pain is intermittent lasts for several minutes and resolves on its own. Patient also admits to having some left-sided facial pain. He has symmetric smile, patient is nontoxic appearing, vital signs stable. He had a negative cardiac catheterization last week. Plan: Labs, EKG, cxr Medical Decision Making Lab Data 05/23/23 13:38 05/23/23 13:38 Labs: Lab Results 05/23/23 05/23/23 05/23/23 Range/Units 13:38 13:38 13:38 WBC 6.6 (4.8-10.8) X10*3/uL RBC 5.78 (4.60-5.80) X10*6/uL Hgb 15.2 (14.0-18.0) g/dl Hct 48.2 (42.0-52.0) % MCV 83.4 (80.0-98.0) fL MCH 26.3 L (27.0-33.0) pg MCHC 31.5 (31.0-36.0) g/dl RDW 14.6 (11.0-16.0) % Plt Count 266 (160-400) X10*3/uL MPV 9.4 (9.4-12.4) fL Immature Gran % (Auto) 0.6 H (0.0-0.4) % Neut % (Auto) 51.8 (45-73) % Lymph % (Auto) 34.0 (20-40) % [place] % (Auto) 7.8 (2-11) % Eos % (Auto) 5.3 H (0-4) % Baso % (Auto) 0.5 (0-2) % Lymph # (Auto) 2.2 (1.2-4.9) X10*3/uL [place] # (Auto) 0.5 (0.1-1.2) X10*3/uL Eos # (Auto) 0.4 (0.0-0.4) X10*3/uL Baso # (Auto) 0.0 (0.0-0.2) X10*3/uL Abs Immat Gran (auto) 0.04 H (0.00-0.03) X10*3/uL Absolute Neuts (auto) 3.4 (2.0-8.3) x10*3/uL Absolute Nucleated RBC 0.000 (0.0-0.012) X10*3/uL Nucleated RBC % (auto) 0.0 (0.0-0.2) /100WBC Sodium 138 (135-145) mmol/L Potassium 4.3 (3.3-5.1) mmol/L Chloride 107 (96-108) mmol/L Carbon Dioxide 23 (22-29) mmol/L Anion Gap 12 (12-20) BUN 11 (9-16) mg/dL Creatinine 0.82 (0.5-1.4) mg/dL Estim Creat Clear Calc 109.0 Estimated GFR > 60 POC Glucose (60-115) mg/dL Random Glucose 136 H (60-115) mg/dL Calcium 10.0 (8.4-10.2) mg/dL Total Bilirubin 0.4 (0.0-1.0) mg/dL Direct Bilirubin 0.2 (0.0-0.5) mg/dL AST 29 (5-37) U/L ALT 44 H (0-40) U/L Alkaline Phosphatase 69 (39-117) U/L Troponin I High Sens 4.4 (<3.5-35.0) ng/L B-Natriuretic Peptide (<100) pg/mL Total Protein 7.4 (6.5-8.0) g/dL Albumin 4.2 (3.5-5.0) g/dL 05/23/23 05/23/23 Range/Units 13:38 15:30 WBC (4.8-10.8) X10*3/uL RBC (4.60-5.80) X10*6/uL Hgb (14.0-18.0) g/dl Hct (42.0-52.0) % MCV (80.0-98.0) fL MCH (27.0-33.0) pg MCHC (31.0-36.0) g/dl RDW (11.0-16.0) % Plt Count (160-400) X10*3/uL MPV (9.4-12.4) fL Immature Gran % (Auto) (0.0-0.4) % Neut % (Auto) (45-73) % Lymph % (Auto) (20-40) % [place] % (Auto) (2-11) % Eos % (Auto) (0-4) % Baso % (Auto) (0-2) % Lymph # (Auto) (1.2-4.9) X10*3/uL [place] # (Auto) (0.1-1.2) X10*3/uL Eos # (Auto) (0.0-0.4) X10*3/uL Baso # (Auto) (0.0-0.2) X10*3/uL Abs Immat Gran (auto) (0.00-0.03) X10*3/uL Absolute Neuts (auto) (2.0-8.3) x10*3/uL Absolute Nucleated RBC (0.0-0.012) X10*3/uL Nucleated RBC % (auto) (0.0-0.2) /100WBC Sodium (135-145) mmol/L Potassium (3.3-5.1) mmol/L Chloride (96-108) mmol/L Carbon Dioxide (22-29) mmol/L Anion Gap (12-20) BUN (9-16) mg/dL Creatinine (0.5-1.4) mg/dL Estim Creat Clear Calc Estimated GFR POC Glucose 165 H (60-115) mg/dL Random Glucose (60-115) mg/dL Calcium (8.4-10.2) mg/dL Total Bilirubin (0.0-1.0) mg/dL Direct Bilirubin (0.0-0.5) mg/dL AST (5-37) U/L ALT (0-40) U/L Alkaline Phosphatase (39-117) U/L Troponin I High Sens (<3.5-35.0) ng/L B-Natriuretic Peptide < 10 (<100) pg/mL Total Protein (6.5-8.0) g/dL Albumin (3.5-5.0) g/dL Discharge Plan Discharge Clinical Impression: Chest pain Patient Disposition: Home, Self-Care Instructions: Chest Pain (ED) Additional Instructions: Take baby aspirin daily and follow up with your educational resource coordinator tomorrow as scheduled Your chest pain is unlikely from the heart Prescriptions: No Action fluoxetine 40 mg capsule 40 mg PO DAILY 90 Days Qty: 90 2RF (DME) FreeStyle [place] 2 Sensor Kit See Rx Instructions .ROUTE .MEDSUPPLY Qty: 2 11RF Rx Instructions: As directed every 2 weeks (DME) FreeStyle [place] 2 Wheeler Misc See Rx Instructions .ROUTE .MEDSUPPLY Qty: 1 0RF Rx Instructions: As directed omeprazole 20 mg capsule,delayed release(DR/EC) 20 mg PO BID 90 Days Qty: 180 2RF (DME) blood-glucose meter [FreeStyle Lite Meter] Kit See Rx Instructions .ROUTE .MEDSUPPLY Qty: 1 0RF Rx Instructions: As directed 4x/day (DME) lancets [FreeStyle Lancets] 28 gauge misc See Rx Instructions .ROUTE .MEDSUPPLY Qty: 200 11RF Rx Instructions: 4 times a day (DME) FreeStyle Lite Strips Strip See Rx Instructions .MEDSUPPLY Qty: 150 11RF Rx Instructions: 4 times a day (DME) Dexcom G6 Shipwright Helper Misc See Rx Instructions .ROUTE .MEDSUPPLY Qty: 1 0RF Rx Instructions: As directed ([facility] [place]) Dexcom G6 Transmitter Device See Rx Instructions .ROUTE .MEDSUPPLY Qty: 1 3RF Rx Instructions: As directed one every 3 months (DME) Dexcom G6 Sensor Device See Rx Instructions .ROUTE .MEDSUPPLY Qty: 3 11RF Rx Instructions: As directed every 10 days Trulicity 4.5 mg/0.5 mL pen injector 4.5 mg subcut QWEEK Qty: 2 1RF pregabalin 150 mg capsule 150 mg PO BID Qty: 60 0RF rosuvastatin 40 mg tablet 40 mg PO DAILY Qty: 90 3RF amlodipine 5 mg tablet 5 mg PO DAILY Qty: 30 3RF famotidine [Pepcid] 20 mg tablet 20 mg PO BID 2 Days Qty: 3 0RF Rx Instructions: Take 1 tablet the AM of Day Before cardiac cath, Take 1 tablet the PM of Day Before cardiac cath, Take 1 tablet the AM OF cardiac cath prednisone 20 mg tablet 20 mg PO BID 2 Days Qty: 3 0RF Rx Instructions: Take 1 tablet the AM of Day Before cardiac cath, Take 1 tablet the PM of Day Before cardiac cath, Take 1 tablet the AM OF cardiac cath diphenhydramine HCl [Benadryl] 25 mg capsule 25 mg PO BID 2 Days Qty: 3 0RF Rx Instructions: Take 1 tablet the AM of Day Before cardiac cath, Take 1 tablet the PM of Day Before cardiac cath, Take 1 tablet the AM OF cardiac cath (DME) pen needle, diabetic 32 gauge x 5/32 needle See Rx Instructions .ROUTE .MEDSUPPLY Qty: 50 Rx Instructions: As directed metformin 500 mg tablet extended release 24 hr 1,000 mg PO QAM cholecalciferol (vitamin D3) 50 mcg (2,000 unit) capsule 50 mcg PO DAILY ezetimibe 10 mg tablet 10 mg PO DAILY lisinopril 10 mg tablet 10 mg PO DAILY [place] Saline Gel [place],Non-Aerosol 1 spray intranasal BID 30 Days Qty: 22 5RF azelastine 137 mcg (0.1 %) aerosol,spray 2 spray intranasal BID 30 Days Qty: 30 6RF Rx Instructions: administer into each nostril tamsulosin 0.4 mg capsule 0.4 mg PO DAILY metoprolol tartrate 50 mg tablet 50 mg PO BID melatonin 5 mg tablet 5 mg PO BEDTIME PRN (Reason: sleep) 30 Days Qty: 30 5RF lidocaine [Lidoderm] 5 % adhesive patch,medicated 1 patch topical DAILY 30 Days Qty: 30 4RF Rx Instructions: leave on most painful area for up to 12 hrs Dulera 200-5 mcg/actuation HFA aerosol inhaler 2 puff inhalation Q12H 30 Days Qty: 13 11RF albuterol sulfate [Ventolin HFA] 90 mcg/actuation HFA aerosol inhaler 2 puff inhalation QID PRN (Reason: shortness of breath or wheezing) 30 Days Qty: 18 11RF Interventions: ED Discharge Assessment Last Done: 05/23/23 16:18 Discharge Date/Time: 05/23/23 16:20
[2023-05-23 13:49] LABS: MANUAL DIFF FLAG NO
[2023-05-23 13:52] LABS: Basophils Percent Auto 0.5 % (0-2); Eosinophils Absolute Auto 0.4 X10*3/uL (0.0-0.4); Eosinophils Percent Auto 5.3 % (0-4); Hematocrit 48.2 % (42.0-52.0); Hemoglobin 15.2 g/dl (14.0-18.0); Imm Gran Abs Auto 0.04 X10*3/uL (0.00-0.03); Imm Gran Pct Auto 0.6 % (0.0-0.4); Lymphocytes Absolute Auto 2.2 X10*3/uL (1.2-4.9); Mean Corpuscular HGB Conc 31.5 g/dl (31.0-36.0); Mean Corpuscular Hemoglobin 26.3 pg (27.0-33.0); Mean Corpuscular Volume 83.4 fL (80.0-98.0); Mean Platelet Volume 9.4 fL (9.4-12.4); Monocytes Absolute Auto 0.5 X10*3/uL (0.1-1.2); Monocytes Percent Auto 7.8 % (2-11); Neutrophils Absolute Auto 3.4 x10*3/uL (2.0-8.3); Neutrophils Percent Auto 51.8 % (45-73); Platelet Count 266 X10*3/uL (160-400); Red Blood Count 5.78 X10*6/uL (4.60-5.80); Red Cell Distribution Width 14.6 % (11.0-16.0); White Blood Count 6.6 X10*3/uL (4.8-10.8)
[2023-05-23 14:11] LABS: Alanine Aminotransferase 44 U/L (0-40); Albumin Level 4.2 g/dL (3.5-5.0); Alkaline Phosphatase 69 U/L (39-117); Anion Gap 12 (12-20); Aspartate Amino Transferase 29 U/L (5-37); Bilirubin Direct 0.2 mg/dL (0.0-0.5); Bilirubin Total 0.4 mg/dL (0.0-1.0); Blood Urea Nitrogen 11 mg/dL (9-16); Carbon Dioxide 23 mmol/L (22-29); Chloride 107 mmol/L (96-108); Estimated Glomerular Filt Rate > 60; Glucose Random 136 mg/dL (60-115); Potassium 4.3 mmol/L (3.3-5.1); Sodium 138 mmol/L (135-145); Total Protein 7.4 g/dL (6.5-8.0)
[2023-05-23 14:14] LABS: B Type Natriuretic Peptide < 10 pg/mL (<100)
[2023-05-23 14:17] LABS: Troponin-I High Sensitivity 4.4 ng/L (<3.5-35.0)
[2023-05-23 15:13] VITALS: BP 122/78; PULSE 72; RESP 18; TEMP 36.6; O2SAT 95
--- NOTE | 2023-05-23 15:22 | PC.NURSE ---
Alert and oriented. Arrived from home complaining of left sided face, chest, shoulder, and arm pain. Patient reports has been having chest pain for a few months and was scheduled to have shoulder surgery. Patient states had a cardiac cath last week and the face pain started after that. Patient reports that his shoulder that he is getting surgery on is on his right side.
--- NOTE | 2023-05-23 15:31 | PC.NURSE ---
Patient reporting he is a diabetic and didnt take his metformin today- blood sugar checked, bs 165.
[2023-05-23 15:35] LABS: Glucose, Whole Blood 165 mg/dL (60-115)
--- NOTE | 2023-05-23 16:18 | PC.NURSE ---
Discharge plan reviewed with patient and daughter who verbalized understanding
--- NOTE | 2024-05-22 00:58 | ED_ITS ---
HPI - Chest Pain General Chief Complaint: Chest Pain Stated Complaint: Chest pain/R arm pain Time Seen by Provider: 05/23/23 15:31 Related Data Home Medications ?Medication ?Instructions ?Recorded ?Confirmed pen needle, diabetic 32 gauge x #50 ea 03/25/21 09/19/23 cholecalciferol (vitamin D3) 50 50 mcg PO DAILY 10/11/22 11/09/23 mcg (2,000 unit) capsule lisinopril 10 mg tablet 10 mg PO DAILY 10/11/22 11/09/23 tamsulosin 0.4 mg capsule 0.4 mg PO DAILY 11/15/22 11/09/23 omeprazole 20 mg capsule,delayed 40 mg PO BID 06/20/23 11/09/23 release pregabalin 150 mg capsule 150 mg PO BID 06/20/23 11/09/23 carboxymethylcellulose sodium 0.5 1 drp ophthalmic (eye) BID 08/29/23 11/09/23 % eye drops (Refresh Tears) allopurinol 300 mg tablet 300 mg PO DAILY 09/28/23 11/09/23 aspirin 81 mg tablet,delayed 81 mg PO DAILY 09/28/23 11/09/23 release ezetimibe 10 mg tablet 10 mg PO DAILY 09/28/23 11/09/23 metformin 750 mg tablet,extended 1,500 mg PO BID 09/28/23 11/09/23 release 24 hr potassium citrate 5 mEq (540 mg) 1,620 meq PO BID 09/28/23 11/09/23 tablet,extended release metoprolol tartrate 50 mg tablet 25 mg PO BID 02/17/24 Previous Rx's ?Medication ?Instructions ?Recorded fluoxetine 40 mg capsule 40 mg PO DAILY 90 days #90 caps 06/09/21 flash glucose sensor (FreeStyle #2 ea 08/11/21 Eneida 2 Sensor kit) flash glucose scanning reader #1 ea 12/16/21 (FreeStyle Eneida 2 Fowler) blood sugar diagnostic (FreeStyle #150 ea 03/12/22 Lite Strips) blood-glucose meter (FreeStyle #1 ea 03/12/22 Lite Meter kit) blood-glucose meter,continuous #1 ea 03/12/22 (Dexcom G6 Rotary Drier Feeder) lancets 28 gauge (FreeStyle #200 ea 03/12/22 Lancets) blood-glucose sensor (Dexcom G6 #3 ea 05/04/22 Sensor device) blood-glucose transmitter (Dexcom #1 ea 05/04/22 G6 Transmitter device) dulaglutide 4.5 mg/0.5 mL 4.5 mg (0.5 mL) subcut QWEEK #2 mL 08/13/22 subcutaneous pen injector (TrulicCoinPass) azelastine 137 mcg (0.1 %) nasal 2 spray intranasal BID 30 days #30 10/11/22 spray mL sodium chloride-aloe vera nasal 1 spray intranasal BID 30 days #22 10/11/22 spray ([place] Saline Gel nasal spray) mL melatonin 5 mg tablet 5 mg PO BEDTIME PRN sleep 30 days 11/15/22 #30 tabs albuterol sulfate 90 mcg/actuation 2 puff inhalation QID PRN 02/18/23 aerosol inhaler (Ventolin HFA) shortness of breath or wheezing 30 days #18 grams mometasone-formoterol HFA 200 2 puff inhalation Q12H 30 days #13 02/18/23 mcg-5 mcg/actuation aerosol grams inhaler (Dulera) budesonide 160 mcg-glycopyr 9 2 inh inhalation BID 30 days #10.7 08/29/23 mcg-formot 4.8 mcg/actuation HFA grams inhaler (Breztri Aerosphere) amlodipine 5 mg tablet 5 mg PO DAILY #30 tabs 09/07/23 azithromycin 250 mg tablet 250 mg PO 3XW 28 days #12 tabs 02/17/24 lidocaine 5 % topical patch 1 patch topical DAILY 30 days #30 02/17/24 (Lidoderm) ea armodafinil 50 mg tablet (Nuvigil) 50 mg PO QAM 30 days #30 tabs 04/13/24 rosuvastatin 40 mg tablet 40 mg PO DAILY #90 tabs 04/26/24 Allergies Allergy/AdvReac Type Severity Reaction Status Date / Time empagliflozin Allergy Severe Itching Verified 04/13/24 10:47 [From Jardiance] morphine [Morphine] Allergy Severe HIVES, Verified 04/13/24 10:47 THROAT CLOSES penicillin G [Penicillin G] Allergy Severe ANAPHYLAXIS Verified 04/13/24 10:47 Sulfa (Sulfonamide Allergy Severe ANAPHYLAXIS Verified 04/13/24 10:47 Antibiotics) [SULFA (SULFONAMIDE ANTIBIOTICS)] Gadolinium-Containing Allergy Intermediate Hives/Rash, Verified 04/13/24 10:47 Contrast Medi dizziness, [Gadolinium-Containing blue spots Agents] adhesive tape AdvReac Intermediate Rash Verified 04/13/24 10:47 tramadol AdvReac Intermediate Gastrointestinal Verified 04/13/24 10:47 Upset PMFSH Past Medical History Medical History (Updated 04/15/24 @ 22:15 by Renato Saba MD) Has daytime drowsiness Allergies History of anesthesia complications Family history of anesthesia complication Type 2 diabetes mellitus Murmur COPD (chronic obstructive pulmonary disease) Lumbar post-laminectomy syndrome Degenerative cervical spinal stenosis Neuropathic pain COVID-19 Chest pain Post herpetic neuralgia Pleuritic chest pain Obesity (BMI 30-39.9) Asthma Pneumonia SONY (obstructive sleep apnea) [id number] syndrome Reactive airway disease On beta mitra at home History of pneumonia Vitamin D deficiency Left nephrolithiasis Dyslipidemia Diabetic polyneuropathy associated with type 2 diabetes mellitus Hypogonadism Failed back syndrome of lumbar spine Arthritis Back pain GERD (gastroesophageal reflux disease) History of fatty infiltration of liver History of ADHD Depression Elevated cholesterol HTN (hypertension) CAD (coronary artery disease) History of 2019 novel coronavirus disease (COVID-19) Cervical radiculopathy Nephrolithiasis Surgical History (Updated 05/24/23 @ 16:10 by Aurea Castañeda, MOVIE ACTOR-C) S/P cardiac catheterization History of kidney surgery Gynecomastia History of elbow surgery Hx laparoscopic cholecystectomy History of carpal tunnel release Hx of shoulder surgery Hx of arthroscopic knee surgery History of esophagogastroduodenoscopy (EGD) H/O colonoscopy Hx of lumbar discectomy Hx of cardiac catheterization Family History Family History Father Diabetes Hypertension Myocardial infarction Mother Diabetes Stroke Alzheimers disease Pacemaker Brother Diabetes Heart problem Myocardial infarction Sister Myocardial infarction Maternal Grandmother Myocardial infarction Social History Social History Household Members: Spouse and Family Housing: Apartment Are you a primary hearing healthcare practitioner to a significant other at home: No Do you presently have visiting nurse or other home services: No Alcohol intake: never Patient Tobacco Use Status: Never used Tobacco e-Cigarette/Vaping Use: Never Used Second Hand Smoke Exposure: No Advance Directives Date on File: 09/28/23 service: No Current occupational status: disabled Physical Exam 2 Vital Signs: Vital Signs: Last Vital Signs Temp 97.9 F 05/23/23 15:13 Pulse 72 05/23/23 15:13 Resp 18 05/23/23 15:13 BP 122/78 05/23/23 15:13 Pulse Ox 95 05/23/23 15:13 O2 Del Method Room Air 05/23/23 15:13 BMI result Body Mass Index 25.4 Appearance: Alert. Oriented X3. No acute distress. Eyes: PERRLA, No Nystagmus ENT: Pharynx normal. Oral Mucosa moist Neck: Normal inspection. Neck supple. CVS: Normal heart rate and rhythm. Pulses normal. No murmur rub or gallop Respiratory: No respiratory distress. Equal air entry bilateral, no wheezing/rales/rhonchi Abdomen: Soft and nontender. Bowel sounds are present, no mass palpable, no CVA tenderness Skin: Skin warm and dry. Normal skin color. Normal skin turgor. Extremities: No lower extremity edema. No calf tenderness Neuro: Oriented X 3. No motor deficit. No sensory deficit.No cerebellar signs , cranial nerves II-XII intact Medical Decision Making Lab Data 05/23/23 13:38 05/23/23 13:38 Labs: Lab Results 05/23/23 05/23/23 Range/Units 13:38 15:30 WBC 6.6 (4.8-10.8) X10*3/uL RBC 5.78 (4.60-5.80) X10*6/uL Hgb 15.2 (14.0-18.0) g/dl Hct 48.2 (42.0-52.0) % MCV 83.4 (80.0-98.0) fL MCH 26.3 L (27.0-33.0) pg MCHC 31.5 (31.0-36.0) g/dl RDW 14.6 (11.0-16.0) % Plt Count 266 (160-400) X10*3/uL MPV 9.4 (9.4-12.4) fL Immature Gran % (Auto) 0.6 H (0.0-0.4) % Neut % (Auto) 51.8 (45-73) % Lymph % (Auto) 34.0 (20-40) % [place] % (Auto) 7.8 (2-11) % Eos % (Auto) 5.3 H (0-4) % Baso % (Auto) 0.5 (0-2) % Lymph # (Auto) 2.2 (1.2-4.9) X10*3/uL [place] # (Auto) 0.5 (0.1-1.2) X10*3/uL Eos # (Auto) 0.4 (0.0-0.4) X10*3/uL Baso # (Auto) 0.0 (0.0-0.2) X10*3/uL Abs Immat Gran (auto) 0.04 H (0.00-0.03) X10*3/uL Absolute Neuts (auto) 3.4 (2.0-8.3) x10*3/uL Absolute Nucleated RBC 0.000 (0.0-0.012) X10*3/uL Nucleated RBC % (auto) 0.0 (0.0-0.2) /100WBC Sodium 138 (135-145) mmol/L Potassium 4.3 (3.3-5.1) mmol/L Chloride 107 (96-108) mmol/L Carbon Dioxide 23 (22-29) mmol/L Anion Gap 12 (12-20) BUN 11 (9-16) mg/dL Creatinine 0.82 (0.5-1.4) mg/dL Estim Creat Clear Calc 109.0 Estimated GFR > 60 POC Glucose 165 H (60-115) mg/dL Random Glucose 136 H (60-115) mg/dL Calcium 10.0 (8.4-10.2) mg/dL Total Bilirubin 0.4 (0.0-1.0) mg/dL Direct Bilirubin 0.2 (0.0-0.5) mg/dL AST 29 (5-37) U/L ALT 44 H (0-40) U/L Alkaline Phosphatase 69 (39-117) U/L Troponin I High Sens 4.4 (<3.5-35.0) ng/L B-Natriuretic Peptide < 10 (<100) pg/mL Total Protein 7.4 (6.5-8.0) g/dL Albumin 4.2 (3.5-5.0) g/dL Discharge Plan Discharge Clinical Impression: Chest pain Patient Disposition: Home, Self-Care Instructions: Chest Pain (ED) Additional Instructions: Take baby aspirin daily and follow up with your state historical society director tomorrow as scheduled Your chest pain is unlikely from the heart Prescriptions: No Action fluoxetine 40 mg capsule 40 mg PO DAILY 90 Days Qty: 90 2RF (DME) FreeStyle Eneida 2 Sensor Kit See Rx Instructions .ROUTE .MEDSUPPLY Qty: 2 11RF Rx Instructions: As directed every 2 weeks (DME) FreeStyle Eneida 2 Fowler Misc See Rx Instructions .ROUTE .MEDSUPPLY Qty: 1 0RF Rx Instructions: As directed (DME) blood-glucose meter [FreeStyle Lite Meter] Kit See Rx Instructions .ROUTE .MEDSUPPLY Qty: 1 0RF Rx Instructions: As directed 4x/day (DME) lancets [FreeStyle Lancets] 28 gauge misc See Rx Instructions .ROUTE .MEDSUPPLY Qty: 200 11RF Rx Instructions: 4 times a day (DME) FreeStyle Lite Strips Strip See Rx Instructions .MEDSUPPLY Qty: 150 11RF Rx Instructions: 4 times a day (DME) Dexcom G6 Rotary Drier Feeder Misc See Rx Instructions .ROUTE .MEDSUPPLY Qty: 1 0RF Rx Instructions: As directed ([facility]) Dexcom G6 Transmitter Device See Rx Instructions .ROUTE .MEDSUPPLY Qty: 1 3RF Rx Instructions: As directed one every 3 months (DME) Dexcom G6 Sensor Device See Rx Instructions .ROUTE .MEDSUPPLY Qty: 3 11RF Rx Instructions: As directed every 10 days Trulicity 4.5 mg/0.5 mL pen injector 4.5 mg subcut QWEEK Qty: 2 1RF amlodipine 5 mg tablet 5 mg PO DAILY Qty: 30 11RF rosuvastatin 40 mg tablet 40 mg PO DAILY Qty: 90 3RF allopurinol 300 mg tablet 300 mg PO DAILY aspirin 81 mg tablet,delayed release (DR/EC) 81 mg PO DAILY potassium citrate 5 mEq (540 mg) tablet extended release 1,620 meq PO BID ezetimibe 10 mg Tablet 10 mg PO DAILY metformin 750 mg tablet extended release 24 hr 1,500 mg PO BID (DME) pen needle, diabetic 32 gauge x 5/32 needle See Rx Instructions .ROUTE .MEDSUPPLY Qty: 50 Rx Instructions: As directed cholecalciferol (vitamin D3) 50 mcg (2,000 unit) capsule 50 mcg PO DAILY lisinopril 10 mg tablet 10 mg PO DAILY [place] Saline Gel [place],Non-Aerosol 1 spray intranasal BID 30 Days Qty: 22 5RF azelastine 137 mcg (0.1 %) aerosol,spray 2 spray intranasal BID 30 Days Qty: 30 6RF Rx Instructions: administer into each nostril tamsulosin 0.4 mg capsule 0.4 mg PO DAILY melatonin 5 mg tablet 5 mg PO BEDTIME PRN (Reason: sleep) 30 Days Qty: 30 5RF metoprolol tartrate 50 mg tablet 25 mg PO BID Dulera 200-5 mcg/actuation HFA aerosol inhaler 2 puff inhalation Q12H 30 Days Qty: 13 11RF albuterol sulfate [Ventolin HFA] 90 mcg/actuation HFA aerosol inhaler 2 puff inhalation QID PRN (Reason: shortness of breath or wheezing) 30 Days Qty: 18 11RF pregabalin 150 mg capsule 150 mg PO BID omeprazole 20 mg capsule,delayed release(DR/EC) 40 mg PO BID carboxymethylcellulose sodium [Refresh Tears] 0.5 % drops 1 drp ophthalmic (eye) BID Breztri Aerosphere 160-9-4.8 mcg/actuation HFA aerosol inhaler 2 inh inhalation BID 30 Days Qty: 10.7 10RF azithromycin 250 mg tablet 250 mg PO 3XW 28 Days Qty: 12 2RF Rx Instructions: Take 1 tablet on Tuesday/Tuesday/Tuesday lidocaine [Lidoderm] 5 % adhesive patch,medicated 1 patch topical DAILY 30 Days Qty: 30 4RF Rx Instructions: leave on most painful area for up to 12 hrs armodafinil [Nuvigil] 50 mg tablet 50 mg PO QAM 30 Days Qty: 30 3RF Interventions: ED Discharge Assessment Last Done: 05/23/23 16:18 Discharge Date/Time: 05/23/23 16:20 Print Language: Arabic
== END 2023-05-23 16:20 | disposition home or self-care (01) ==
PROVIDERS: Physician Assistant Medical; Emergency Provider Internal Medicine
DX: R07.89 Other chest pain (principal); I25.10 Atherosclerotic heart disease of native coronary artery without angina pectoris; R06.02 Shortness of breath; I10 Essential (primary) hypertension; E78.5 Hyperlipidemia, unspecified; Z79.899 Other long term (current) drug therapy
CPT/HCPCS: 36415; 71046; 80048; 80076; 82947; 83880; 84484; 85025; 93005; 99283; 99284

== ENCOUNTER 2023-05-24 13:03 | Outpatient (AMB) | payer OTHER, SELFPAY ==
--- NOTE | 2023-05-24 13:14 | MHC.OFFVIS ---
Intake Vital Signs 05/24/23 13:15 Height 6 ft Weight 231 lb 7.766 oz BMI 31.4 BP 114/70 Blood Pressure Location Lt brachial Position Sitting Pulse 73 Pulse Source Pulse Oximeter Intake Visit Reasons: fu cath 05/19- clearance for surgery Intake Note: f/up cath 05/19- clearance surgery Stable Attendant Required: No Swine Extension Field Specialist: Swine Extension Field Specialist Present Accompanied by: Daughter Allergies [email or web address] [From Jardiance] Allergy (Severe, Verified 05/24/23 13:22) Itching morphine [Morphine] Allergy (Severe, Verified 05/24/23 13:22) HIVES, THROAT CLOSES penicillin G [Penicillin G] Allergy (Severe, Verified 05/24/23 13:22) ANAPHYLAXIS Sulfa (Sulfonamide Antibiotics) [SULFA (SULFONAMIDE ANTIBIOTICS)] Allergy (Severe, Verified 05/24/23 13:22) ANAPHYLAXIS Gadolinium-Containing Contrast Medi [Gadolinium-Containing Agents] Allergy (Intermediate, Verified 05/24/23 13:22) Hives/Rash, dizziness, blue spots Iodinated Contrast Media Allergy (Intermediate, Verified 05/24/23 13:22) hives,rash tramadol Adverse Reaction (Verified 05/24/23 13:22) Gastrointestinal Upset Medication List - Last Reconciled 05/24/23 by MATTHIEU Arita albuterol sulfate 90 mcg/actuation (Ventolin HFA) 2 puffs inhalation QID PRN 30 days amlodipine 5 mg PO DAILY azelastine 2 sprays intranasal BID 30 days blood sugar diagnostic (FreeStyle Lite Strips) 4 times a day blood-glucose meter (FreeStyle Lite Meter kit) As directed 4x/day blood-glucose meter,continuous (Dexcom G6 Dramatic Reader) As directed blood-glucose sensor (Dexcom G6 Sensor device) As directed every 10 days blood-glucose transmitter (Dexcom G6 Transmitter device) As directed one every 3 months cholecalciferol (vitamin D3) 50 mcg PO DAILY diphenhydramine HCl (Benadryl) 25 mg PO BID 2 days dulaglutide (Trulicity) 4.5 mg (0.5 mL) subcut QWEEK ezetimibe 10 mg PO DAILY famotidine (Pepcid) 20 mg PO BID 2 days flash glucose scanning reader ([employer] [place] 2 [place]) As directed flash glucose sensor (FreeStyle E[place]ida 2 Sensor kit) As directed every 2 weeks fluoxetine 40 mg PO DAILY 90 days lancets (FreeStyle Lancets) 4 times a day lidocaine 5% (Lidoderm) 1 patch topical DAILY 30 days lisinopril 10 mg PO DAILY melatonin 5 mg PO BEDTIME PRN 30 days metformin ER 1,000 mg PO QAM metoprolol tartrate 50 mg PO BID mometasone-formoterol 200-5 mcg/actuation (Dulera) 2 puffs inhalation Q12H 30 days omeprazole 20 mg PO BID 90 days pen needle, diabetic As directed prednisone 20 mg PO BID 2 days rosuvastatin 40 mg PO DAILY sodium chloride-aloe vera ([place] Saline Gel nasal spray) 1 spray intranasal BID 30 days tamsulosin 0.4 mg PO DAILY HPI fu cath 05/19- clearance for surgery HPI Details Mohit is a 58-year-old male with past medical history of hypertension, hyperlipidemia, diabetes, obstructive sleep apnea, mild obesity, nonobstructive coronary artery disease who reported chest discomfort on last visit and underwent a cardiac catheterization, now presenting for follow-up. Today he reports that he continues to get some discomfort in his left chest region which with radiation into his left arm. He also has intermittent pain along the left side of his face. He did go to the emergency room yesterday for these symptoms and ruled out for ACS. He is still expressing concern that he has heart disease. No chest discomfort at present. No shortness of breath, palpitations, dizziness, presyncope, syncope, PND, orthopnea or edema. 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 He is still in need of right rotator cuff surgery. Right radial catheterization site feels well. Family member is present. [facility] Medical History Arthritis Asthma Back pain CAD (coronary artery disease) Cervical radiculopathy Chest pain COVID-19 Degenerative cervical spinal stenosis Depression Diabetic polyneuropathy associated with type 2 diabetes mellitus Dyslipidemia Elevated cholesterol Failed back syndrome of lumbar spine GERD (gastroesophageal reflux disease) History of 2019 novel coronavirus disease (COVID-19) History of ADHD History of fatty infiltration of liver History of pneumonia HTN (hypertension) Hypogonadism Left nephrolithiasis Lumbar post-laminectomy syndrome Nephrolithiasis Neuropathic pain Obesity (BMI 30-39.9) Obstructive sleep apnea On beta mitra at home SONY (obstructive sleep apnea) Pleuritic chest pain Pneumonia Post herpetic neuralgia 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 Reactive airway disease Sleep apnea Vitamin D deficiency Surgical History (Updated 05/24/23 @ 16:10 by Aurea Castañeda NP-C) Gynecomastia H/O colonoscopy History of carpal tunnel release History of elbow surgery History of esophagogastroduodenoscopy (EGD) History of kidney surgery Hx laparoscopic cholecystectomy Hx of arthroscopic knee surgery Hx of cardiac catheterization Hx of lumbar discectomy Hx of shoulder surgery S/P cardiac catheterization Family History Father Diabetes Hypertension Myocardial infarction Mother Diabetes Stroke Alzheimers disease Pacemaker Brother Diabetes Heart problem Myocardial infarction Sister Myocardial infarction Maternal Grandmother Myocardial infarction Social History Household Members: Spouse and Family Housing: Apartment Are you a primary daycare manager to a significant other at home: No Do you presently have visiting nurse or other home services: No Alcohol intake: never Patient Tobacco Use Status: Never used Tobacco e-Cigarette/Vaping Use: Never Used Second Hand Smoke Exposure: No service: No Current occupational status: disabled Review of Systems Const All systems reviewed & are unremarkable except as noted in HPI and below ENT Reports dizziness Card Details: Intermittent pains left chest, left arm and left side of face Reports chest pain, Denies chest pain at rest, Denies chest pain with activity, Denies rapid heart rate, Denies pedal edema, Denies edema, Denies leg edema, Denies lightheadedness, Denies palpitations, Denies dyspnea, Denies dyspnea on exertion and Denies orthopnea Resp Denies cough, Denies dyspnea and Denies dyspnea on exertion GI Denies hematochezia and Denies change in stool character Musc Denies abnormal gait, Reports limited range of motion, Reports muscle cramps, Denies muscle weakness, Denies numbness, Denies radiating pain into limb, Denies stiffness and Denies tingling Neuro Denies abnormal gait, Reports dizziness, Denies numbness and Denies tingling Endo Denies palpitations Physical Exam Vital Signs: Last Vital Signs Pulse 73 05/24/23 13:15 BP 114/70 05/24/23 13:15 BMI result Body Mass Index 31.4 Const General: cooperative, healthy appearing, comfortable and no acute distress Orientation/consciousness: patient oriented x3 Neck Neck: Yes normal visual inspection Resp Effort & Inspection: normal respiratory effort Auscultation: clear to auscultation bilaterally, no crackles, no rales, no rhonchi and no wheezes Cardio Jugular venous distension: no JVD Rate: regular rate Rhythm: regular rhythm Heart sounds: S1 normal heart sound present, S2 normal heart sound present, no gallops, no murmurs and no rubs Neuro General: patient oriented x3 Extrem Other: Right radial catheterization site well healed, easily palpable radial pulse, hand assessment normal General: Yes normal to inspection Psych Appearance: grossly normal Mental Status: mental status grossly normal Speech and movement: Normal speech and movement present Assessment & Plan Assessment & Plan (1) Chest discomfort: Code(s): R07.89 - Other chest pain Plan: Reports of left-sided chest discomfort that he describes as being deep with radiation down his left arm to his fingers and it has gone up to the left side of his face as well. This symptom has occurred randomly without specific exertional component. He does have known history of nonobstructive coronary artery disease with cardiac catheterization 06/22/2017 showing 50% mid LAD stenosis. Since he had known nonobstructive disease and symptoms concerning for angina he then underwent cardiac catheterization on 05/19/2023 showing only mid LAD 30% stenosis, other arteries normal. He has mild nonobstructive coronary artery disease. He did go to the ER yesterday for recurrent symptoms and ruled out for ACS. Spent time reviewing test results with him in detail and explaining that his symptom of chest and arm discomfort is not cardiac related. Possibilities include GI versus musculoskeletal reasons for symptoms. He mentions some concern about heart valve disease. He did have some aortic calcification, no stenosis noted on echo in 2019. Will update his echocardiogram to reassess EF, valves. Plan to call him with the results. He needs ongoing management for nonobstructive coronary disease including aspirin indefinitely. Continue rosuvastatin and Zetia with LDL goal less than 70. Last cholesterol profile in our system 01/26/2022 shows LDL 50. He will need update lipid profile, ordered. Continue metoprolol, lisinopril for good blood pressure control. Importance of good diabetic control reviewed. Hemoglobin A1c goal less than 7, which is followed by his PCP. Signs and symptoms of true angina, Congestive heart failure reviewed with him. Cardiology follow-up in 1 year, sooner if needed. (2) S/P cardiac catheterization: Comment: 05/19/2023, left main, left circumflex, RCA all normal, lad mid 30% stenosis Code(s): Z98.890 - Other specified postprocedural states Plan: Right radial catheterization site well healed (3) Hx of cardiac catheterization: Comment: 06/2017 mid LAD 50% stenosis, minimal luminal irregularities seen in the left main, remainder of LAD, left circumflex, ramus and RCA Code(s): Z98.890 - Other specified postprocedural states (4) CAD (coronary artery disease): Comment: Echo October 2019 EF 60-65% June 2017, mild LAD [id number] HCS. DEnies recent chest pain. Code(s): I25.10 - Atherosclerotic heart disease of [place] coronary artery without angina pectoris Qualifiers: Associated angina: without angina Coronary Disease-Associated Artery/Lesion type: [place] artery [place] vs. transplanted heart: [place] heart Qualified Code(s): I25.10 - Atherosclerotic heart disease of [place] coronary artery without angina pectoris Plan: Mild nonobstructive (5) HTN (hypertension): Code(s): I10 - Essential (primary) hypertension Qualifiers: Hypertension type: essential hypertension Qualified Code(s): I10 - Essential (primary) hypertension Plan: Well controlled at present. No med changes made today (6) Dyslipidemia: Code(s): E78.5 - Hyperlipidemia, unspecified Plan: [place] LDL goal less than 70. Labs done 01/26/2022 shows LDL 50. At present continue current rosuvastatin and Zetia. Will needed updated lipid profile (7) Type 2 diabetes mellitus with hyperglycemia: Code(s): E11.65 - Type 2 diabetes mellitus with hyperglycemia Plan: Hemoglobin A1c goal less than 7. Labs done 01/19/2022 showed hemoglobin A1c 7.3, labs from 10/20/2021 showed hemoglobin A1c 10.5 Orders: Orders CA echo transthoracic complete Today I35.9 - Nonrheumatic aortic valve disorder, unspecified Lipid Panel Today I25.10 - Atherosclerotic heart disease of [place] coronary artery without angina pectoris Coding Level of Care Code Est Pt Level 4 (64147) Diagnoses Chest discomfort R07.89 S/P cardiac catheterization Z98.890 Hx of cardiac catheterization Z98.890 CAD (coronary artery disease) I25.10 Associated angina: without angina Coronary Disease-Associated Artery/Lesion type: [place] artery [place] vs. transplanted heart: [place] heart HTN (hypertension) I10 Hypertension type: essential hypertension Dyslipidemia E78.5 Type 2 diabetes mellitus with hyperglycemia E11.65 Time Spent (min) 28 Comment Chart review, documentation, interview, assessment
[2023-05-24 13:15] VITALS: BP 114/70; PULSE 73; BMI 31.4
== END 2023-05-24 13:50 | disposition home or self-care (01) ==
PROVIDERS: PCP Nurse Practitioner; Visit Provider Nurse Practitioner Family
DX: R07.89 Other chest pain (principal); Z98.890 Other specified postprocedural states; I25.10 Atherosclerotic heart disease of native coronary artery without angina pectoris; I10 Essential (primary) hypertension; E78.5 Hyperlipidemia, unspecified; E11.65 Type 2 diabetes mellitus with hyperglycemia
CPT/HCPCS: 99214

== ENCOUNTER → 2023-05-24 13:03 | Outpatient (BNVA) | payer OTHER, SELFPAY | PROVIDERS: PCP Nurse Practitioner; Visit Provider Nurse Practitioner Family | DX: R07.89 Other chest pain (principal); I25.10 Atherosclerotic heart disease of native coronary artery without angina pectoris; I10 Essential (primary) hypertension; E78.5 Hyperlipidemia, unspecified; E11.65 Type 2 diabetes mellitus with hyperglycemia; Z98.890 Other specified postprocedural states | CPT/HCPCS: 99212 ==

== ENCOUNTER 2023-06-20 10:05 | Outpatient (AMB) | payer OTHER, SELFPAY ==
[2023-06-20 10:11] VITALS: PULSE 70; O2SAT 96; BMI 28.5
--- NOTE | 2023-06-20 10:11 | A.OFFVIS_ITS ---
Intake Vital Signs 06/20/23 10:11 Height 6 ft Weight 210 lb BMI 28.5 Pulse 70 Pulse Source Pulse Oximeter Pulse Oximetry (%) 96 Oxygen Delivery Method Room Air Intake Visit Reasons: Lung Pain Allergies empagliflozin [From Jardiance] Allergy (Severe, Verified 06/20/23 10:13) Itching morphine [Morphine] Allergy (Severe, Verified 06/20/23 10:13) HIVES, THROAT CLOSES penicillin G [Penicillin G] Allergy (Severe, Verified 06/20/23 10:13) ANAPHYLAXIS Sulfa (Sulfonamide Antibiotics) [SULFA (SULFONAMIDE ANTIBIOTICS)] Allergy (Severe, Verified 06/20/23 10:13) ANAPHYLAXIS Gadolinium-Containing Contrast Medi [Gadolinium-Containing Agents] Allergy (Intermediate, Verified 06/20/23 10:13) Hives/Rash, dizziness, blue spots Iodinated Contrast Media Allergy (Intermediate, Verified 06/20/23 10:13) hives,rash tramadol Adverse Reaction (Verified 06/20/23 10:13) Gastrointestinal Upset HPI HPI Comments History of Present Illness Details The patient is a 58-year-old gentleman with a history of obstructive sleep apnea who apparently developed COVID-19 little bit more than a year ago requiring ICU level of care. Subsequently after that his breathing has not been the same. He has had episodes of shortness of breath and has had to go to the ER multiple times because of worsening shortness of breath. He was provided with respiratory therapy including short-acting beta agonist. In addition to that he has been provided medications like prednisone. Subsequent please the patient was noted to have a recurrent pneumonia and a chest x-ray and treated with antibiotics. Does back in beginning of April. He did have a repeat chest x-ray that demonstrated resolution of the right-sided pneumonia. I did review all his imaging studies from the [facility] system. Initially when he was admitted with the COVID 19 he did not have a CT scan but did demonstrate that he had bilateral hazy opacities and decreased lung Expansion. Subsequently after that she did have the x-ray demonstrating the developing pneumonia in the right hemithorax. Still though he has never had a CT scan in view of his ongoing respiratory symptoms something that we will address the pending a how he response to this therapy in the meantime she has been struggling with CPAP. He had been on oxygen while he was in the hospital. . The CPAP was affecting beneficial before but does not appear to be helpful any longer. He is having some daytime drowsiness is within up tired. Machine appears to be broken as well. Therefore, he had a sleep study done because of his elevated [place] score of 14/24. The sleep study again demonstrates severe sleep apnea with an AHI greater than 40 significant hypoxia. Based on that will having undergo a CPAP BiPAP titration that the patient may need oxygen or may need a different type of PAP therapy. This is something we can arrange now in regards to his respiratory therapy the patient does have significant exhalation wheezing and coughing consistent likely a component of asthma and reactive airway disease that may have of all after developing a viral pneumonitis. Therefore will opti jane respiratory therapy at this time. also to note the patient has not been vaccinated for COVID-19 because of concern of allergies that he has. I encouraged him to get vaccine as well as possible. But 1st I will check to see if he still has antibodies present. 06/29/2022 the patient is here for a pulm onary follow-up visit. He was admitted to [facility] back in May with COVID-19. While he was there he was having shortness of breath tachycardia and also abdominal discomfort. He tested positive for COVID and also was noted to have an elevated lactic acid suggesting some degree of sepsis. He was placed on antibiotics and did not receive any antibiotic therapy. The patient also had a CTmen demonstrating kidney stones. He was able to be discharged home without any oxygen which is reassuring. The chest discomfort on the left side has improved. He is still having some discomfort but is less severe. The patient is functioning well with that he is breathing is much better. He still using his CPAP. He feels like his CPAP machine is no longer working. He does have an old dream station 1 which she is concerned because is not working well and has been recall. He has had for more than 5 years. Therefore will go ahead and order a new machine for him. He has been using the [employer] company, [employer] will go ahead and per process the new replacement machine to them. The patient continues use his Symbicort. He does not have to uses rescue inhaler. Otherwise patient is doing well. For the next visit he will bring his new CPAP. 10/11/2022 the patient is here for pulmona ry follow-up visit. He continues to have significant daytime drowsiness. His [place] score is elevated 10/24. In addition to that he is having snoring while using his broken CPAP. We did request a new CPAP in June. We did call the [employer] to see an update on when he is going to be getting the new machine. Explained to the patient that there is a back order and therefore has been taking longer than usual. But based on the fact that he has continued to have symptoms will go ahead and try to expedite it for him. He continues with respiratory therapy. Appears to be effective. Although, he still complaining of the left-sided chest discomfort. This has been chronic after having COVID. At this point symptoms are not getting any worse which is reassuring. Another issue is that he has had some issues with epistaxis. He is not using any nasal sprays. His house does run on the dry side. He is using humidification for CPAP. Hopefully with the new CPAP ago work a little better for him. In the meantime I did prescribed Astelin nasal spray in addition to saline gel to try to mitigate some of the symptoms. If the patient continues have worsening epistaxis may be difficult for him to tolerate CPAP. 11/15/2022 the patient is here for a pulm onary follow-up visit. Overall the patient is getting concerned because he has not gotten a new CPAP. Again he still waiting for his rest [place] replacement. In the meantime his current machine is not working effectively and he is to get a replacement. We did request a replacement machine back in June. I did call the [employer] again to see what the status is. I did provide him with an F20 medium mask that had in the office to make sure that he had adequate supplies in order to continue using his machine effectively. The therapy has been helpful for him. And he does uses CPAP for more than 4 hours a night. The patient still complains of that left-sided discomfort. Appears to be in a dermatomal distribution. We did review his last CT scan of the abdomen that she demonstrates lung cuts in that area and it is reassuring that he does not have any lung parenchymal changes even after having some significant COVID. It may be that he does have some degree of neuropathy in a dermatomal distribution. The patient will try the Lidoderm patches in that area. He is also no longer using the Lunesta. He can try some [id number] melatonin to see if that can help him sleep. 02/18/2023 the patient is here for charisse kolb follow-up visit. The patient overall has been doing well. He is currently waiting to get his service agreement from the [employer] in order to start getting supplies. The patient also has been tolerating the new mask, F20 medium which seems to be working well for him. Patient overall feels better about that. His breathing still has some issues still complaining of chest pain now upon deep breathing consistent with his chronic pleuritic chest discomfort. He also has significant elbow pain now and shoulder discomfort that is been evaluated as well. For the last few days she has also had some wheezing although it does not appear to be that he is using his inhalers correctly. His is with him. She understands that he needs to take Dulera as prescribed which is twice a day and also should have the rescue inhaler available as needed. I will make sure to send the medication to the pharmacy. He is not using the Spiriva or any other inhalers that he has been prescribed in the past. 06/20/2023 the patient is here for [facility] follow-up visit. He has had a very eventful summer. Continues to have significant left-sided chest discomfort which appears to be in a dermatomal distribution. The patient does have significant spinal stenosis. He was referred to pain management. The patient opted on not having any interventions. One recommendation was to have an MRI of the spine to further address his underlying pain and spinal stenosis history as well as disc disease. He continues to require pain management. We did review his CT scan of the abdomen that he had a [facility] back in March 2023. It appears to show little bit of the left lung base without any acute disease although minimal. Appears to have a small fluid collection on the right. This appears to be stable for the last few years. His last CT scan of the chest here at [place] was back in 2020 demonstrating no significant DU except for the again that right lower lobe fluid pleural base density. The patient will continue with that became patch and then also consider some Tylenol with codeine to provide some pain relief. In the meantime due to the significant history of spinal stenosis will go ahead and request an MRI to better address the issue and help him with his ongoing pain that he has had for years. Hears already perform physical therapy he has already taken in multiple medications without any significant relief. [facility] Medical History (Updated 06/20/23 @ 13:02 by Renato Saba MD) Lumbar post-laminectomy syndrome Degenerative cervical spinal stenosis Neuropathic pain COVID-19 Chest pain Post herpetic neuralgia Pleuritic chest pain Obesity (BMI 30-39.9) Asthma Pneumonia SONY (obstructive sleep apnea) [id number] syndrome Reactive airway disease On beta mitra at home History of pneumonia Vitamin D deficiency Left nephrolithiasis Dyslipidemia Diabetic polyneuropathy associated with type 2 diabetes mellitus Hypogonadism Obstructive sleep apnea Failed back syndrome of lumbar spine Arthritis Back pain GERD (gastroesophageal reflux disease) History of fatty infiltration of liver History of ADHD Depression Sleep apnea Elevated cholesterol HTN (hypertension) CAD (coronary artery disease) History of 2019 novel coronavirus disease (COVID-19) Cervical radiculopathy Nephrolithiasis Surgical History (Updated 05/24/23 @ 16:10 by Aurea Castañeda, TELEPHONE SALES AGENT-C) S/P cardiac catheterization History of kidney surgery Gynecomastia History of elbow surgery Hx laparoscopic cholecystectomy History of carpal tunnel release Hx of shoulder surgery Hx of arthroscopic knee surgery History of esophagogastroduodenoscopy (EGD) H/O colonoscopy Hx of lumbar discectomy Hx of cardiac catheterization Family History Father Diabetes Hypertension Myocardial infarction Mother Diabetes Stroke Alzheimers disease Pacemaker Brother Diabetes Heart problem Myocardial infarction Sister Myocardial infarction Maternal Grandmother Myocardial infarction Social History Household Members: Spouse and Family Housing: Apartment Are you a primary progressive care unit registered nurse to a significant other at home: No Do you presently have visiting nurse or other home services: No Alcohol intake: never Patient Tobacco Use Status: Never used Tobacco e-Cigarette/Vaping Use: Never Used Second Hand Smoke Exposure: No service: No Current occupational status: disabled Review of Systems Const Denies fatigue, Denies weight gain and Reports weight loss Eyes Denies blurry vision ENT Denies epistaxis and Denies sore throat Card Reports chest pain, Denies palpitations and Denies dyspnea Resp Denies cough, Reports pain on inspiration and Denies dyspnea GI Denies constipation and Denies diarrhea Denies dysuria and Denies urinary frequency Musc Reports myalgias, Reports arthralgias, Reports joint swelling, Denies muscle cramps, Denies muscle weakness, Reports numbness and Reports tingling Neuro Denies burning sensations, Reports numbness, Reports tingling and Denies paresthesias Psych Denies depression Endo Denies fatigue, Denies polydipsia, Denies polyuria and Denies palpitations Tejas/Lymph Denies easy bruising Physical Exam Vital Signs: Last Vital Signs Pulse 70 06/20/23 10:11 Pulse Ox 96 06/20/23 10:11 Oxygen Delivery Method Room Air 06/20/23 10:11 BMI result Body Mass Index 28.5 Const General: no acute distress and alert HEENT Head: Yes normocephalic and Yes atraumatic Eyes Sclerae: sclerae normal EOM: EOMs intact bilaterally Neck Neck: Yes no lymphadenopathy, Yes trachea midline and Yes no JVD Thyroid: Thyroid normal Chest Chest palpation & inspection: normal inspection of the chest Resp Effort & Inspection: normal respiratory effort Auscultation: diminished lung sounds Cardio Rate: regular rate Rhythm: regular rhythm Heart sounds: S1 normal heart sound present and S2 normal heart sound present Peripheral pulses: Peripheral pulses 2+ throughout GI Inspection: Yes normal to inspection and No distended Auscultation: normal bowel sounds Skin Other: No acanthosis nigricans or diabetic dermopathy Neuro Sensory Exam: Trunk sensory exam abnormal (tenderness skin palpation superficial pain dermatomal distributibution) Deep tendon reflexes (DTR's): Rt Biceps (C5, C6): 2+, Left biceps reflex intensity grade: 2+, Right patellar reflex intensity grade: 2+ and Left patellar reflex intensity grade: 2+ Extrem Other: Foot inspection: No lesions, ulcers. + oncymychosis General: Yes normal gait, No clubbing, No cyanosis and No edema Psych Affect: normal affect Attitude: cooperative Assessment & Plan Assessment & Plan (1) SONY (obstructive sleep apnea): Code(s): G47.33 - Obstructive sleep apnea (adult) (pediatric) (2) [id number] syndrome: Code(s): B94.8 - Sequelae of other specified infectious and parasitic diseases (3) Reactive airway disease: Code(s): J45.909 - Unspecified asthma, uncomplicated Qualifiers: Asthma complication type: uncomplicated Asthma persistence: persistent Asthma severity: moderate Qualified Code(s): J45.40 - Moderate persistent asthma, uncomplicated (4) Asthma: Code(s): J45.909 - Unspecified asthma, uncomplicated Qualifiers: Asthma complication type: uncomplicated Asthma persistence: persistent Asthma severity: moderate Qualified Code(s): J45.40 - Moderate persistent asthma, uncomplicated (5) Radicular pain: Code(s): M54.10 - Radiculopathy, site unspecified (6) Chest discomfort: Code(s): R07.89 - Other chest pain (7) Lumbar post-laminectomy syndrome: Code(s): M96.1 - Postlaminectomy syndrome, not elsewhere classified (8) Radiculopathy due to lumbar intervertebral disc disorder: Code(s): M51.16 - Intervertebral disc disorders with radiculopathy, lumbar region Plan MRI thoracic/lumbar continue Dulera, not using Spiriva short-acting beta agonist as needed nebulizer that he can use as needed lidoderm patch to the left sided neuropathy continue APAP therapy, medium F20 mask Tylenol#3 as needed for pain F/U 2-3 months Orders: Orders MR thoracic spine w con Today M51.16 - Intervertebral disc disorders with radiculopathy, lumbar region, M96.1 - Postlaminectomy syndrome, not elsewhere classified, R07.89 - Other chest pain MR lumbar spine wo con Today M51.16 - Intervertebral disc disorders with radiculopathy, lumbar region, M54.10 - Radiculopathy, site unspecified, M96.1 - Postlaminectomy syndrome, not elsewhere classified, R07.89 - Other chest pain Medications: New acetaminophen-codeine 300-15 mg 1 tab PO Q12H 10 days PRN 20 tabs 0RF pain Coding Level of Care Code Est Pt Level 4 (16464) Diagnoses SONY (obstructive sleep apnea) G47.33 [id number] syndrome B94.8 Moderate persistent reactive airway disease without complication J45.40 Asthma complication type: uncomplicated Asthma persistence: persistent Asthma severity: moderate Moderate persistent asthma without complication J45.40 Asthma complication type: uncomplicated Asthma persistence: persistent Asthma severity: moderate Radicular pain M54.10 Chest discomfort R07.89 Lumbar post-laminectomy syndrome M96.1 Radiculopathy due to lumbar intervertebral disc disorder M51.16 Time Spent (min) 18
== END 2023-06-20 10:51 | disposition home or self-care (01) ==
PROVIDERS: PCP Nurse Practitioner; Visit Provider Hospitalist
DX: G47.33 Obstructive sleep apnea (adult) (pediatric) (principal); B94.8 Sequelae of other specified infectious and parasitic diseases; J45.40 Moderate persistent asthma, uncomplicated; M54.10 Radiculopathy, site unspecified; R07.89 Other chest pain; M96.1 Postlaminectomy syndrome, not elsewhere classified; M51.16 Intervertebral disc disorders with radiculopathy, lumbar region
CPT/HCPCS: 99214

== ENCOUNTER → 2023-06-20 10:05 | Outpatient (BNVA) | payer OTHER, SELFPAY | PROVIDERS: PCP Nurse Practitioner; Visit Provider Hospitalist | DX: J45.40 Moderate persistent asthma, uncomplicated (principal); R07.89 Other chest pain; M54.10 Radiculopathy, site unspecified; M96.1 Postlaminectomy syndrome, not elsewhere classified; B94.8 Sequelae of other specified infectious and parasitic diseases; G47.33 Obstructive sleep apnea (adult) (pediatric); M51.16 Intervertebral disc disorders with radiculopathy, lumbar region | CPT/HCPCS: 99212 ==

== ENCOUNTER → 2023-06-28 09:24 | Outpatient (REF) | payer OTHER, SELFPAY ==
--- NOTE | 2023-06-28 09:27 | CA_ITS ---
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 Normal LV ejection fraction of 60 65% with impaired relaxation filling pattern 2. Mild aortic stenosis is noted 3. Technically otherwise limited study despite use of contrast agent Findings Procedure Information Contrast agent, definity, is being given per protocol without apparent complications. Left Ventricle Normal left ventricular size, thickness, and systolic function. The visually estimated ejection fraction is between 60-65%. Spectral Doppler is indicative of an impaired relaxation filling pattern. Right Ventricle The right ventricle was not well visualized. Atria The left atrium is likely dilated. Interatrial shunt cannot be excluded. The right atrium is normal in size. Aortic Valve The aortic valve was not well visualized. There is mild calcification of the aortic valve. There is mild aortic valve stenosis. The peak aortic velocity is 2.10 m/s with a calculated peak gradient of 18 mmHg. The mean gradient is 9 mmHg. The aortic valve area is 1.55 cm2. There is no aortic valve regurgitation. Mitral Valve The mitral valve was not well visualized. There is mild mitral annular calcification. There is trace mitral valve regurgitation. There is no mitral valve stenosis. Pulmonic Valve The pulmonic valve was not well visualized. Great Vessels The pulmonary artery was not well visualized. There is no dilatation of the ascending aorta. Venous The inferior vena cava is normal in size and collapses greater than 50% with inspiration. Pericardium/Pleural The pericardium was not well visualized. Prior Study Comparison Changes noted compared to prior study dated: 10/30/2019. Mild aortic stenosis is noted Measurements 2D Linear Measurements IVSd: 1.13 0.6-0.9/0.6-1.0 cm LVIDd: 5.28 3.9-5.3/4.2-5.9 cm LVIDd Index: 2.48 2.4-3.2/2.2-3.1 cm/m2 LVIDs: 3.62 2.0-3.6 cm LVPWd: 1.09 0.7-1.1 cm LA Diam: 3.80 2.7-3.8/3.0-4.0 cm LAIDs Index: 1.78 1.5-2.3 cm/m2 LV Mass: 285.66 67-162/88-224 g LV Mass Index: 134.11 43-95/49-115 g/m2 LVOT Diam: 2.10 3.0+(-)1.3 cm 2D Systolic Function EF 4C: 60.40 >55% EF 2C: 61.70 >55% EF BiP: 61.00 >55% Mitral Valve MV Pk E: 0.66 MV PK A: 0.79 MV Decel Time: 198.00 E/A: 0.80 E'Lateral: 8.70 E'Medial: 6.74 E/E' Med: 9.70 E/E' Lat: 7.50 PHT: 58.00 MVA PHT: 3.79 Decel [place]: 3.31 Aortic Valve AoV Pk Dangelo: 2.10 AoV Mn Dangelo: 1.46 AoV VTI: 0.48 AoV Pk Grad: 18.00 Aov Mn Grad: 9.00 RUSSELL Cont.VTI: 1.55 LVOT LVOT Pk Dangelo: 0.95 LVOT Mn Dangelo: 0.68 LVOT VTI: 0.22 LVOT Pk Grad: 4.00 LVOT Mn Grad: 2.00 LVOT Diam: 2.10 LVOT Area: 3.46 Diastolic Function MV Pk E: 0.66 MV Pk A: 0.79 E/A: 0.80 E'Medial: 6.74 E/E' Med: 9.70 E' Laterial: 8.70 E/E' Lat: 7.50 Right Ventricle TAPSE (mm): 21.40 TVS' Dangelo: 12.40 Tricuspid Valve RA Press: 3.00 Great Vessels Aorta Sinus of Valsalva: 3.13 2.0-3.[address] [place]: 2.69 1.7-3.4 cm Ao Asc: 3.10 2.1-3.4 cm Updated in Other Vendor System with Status of Final Robbie Ocampo MD electronically signed on 06/29/2023 2:16:33 PM with status of Final
== END ==
LOC: HO.CARD 09:24
PROVIDERS: PCP Nurse Practitioner; Visit Provider Nurse Practitioner Family
DX: I35.9 Nonrheumatic aortic valve disorder, unspecified (principal)
CPT/HCPCS: 93306; Q9957

== ENCOUNTER → 2023-06-28 09:27 | Outpatient (BNV) | payer OTHER, SELFPAY | PROVIDERS: PCP Nurse Practitioner; Visit Provider Internal Medicine Cardiovascular Disease | DX: I35.0 Nonrheumatic aortic (valve) stenosis (principal) | CPT/HCPCS: 93306 ==

== ENCOUNTER 2023-08-12 10:09 | Outpatient (REF) | payer OTHER, SELFPAY | END 2023-08-12 10:10 | disposition home or self-care (01) | LOC: HO.MRI 10:09 | PROVIDERS: PCP Nurse Practitioner; Visit Provider Hospitalist | DX: Z13.89 Encounter for screening for other disorder (principal) ==

== ENCOUNTER 2023-08-29 10:29 | Outpatient (AMB) | payer OTHER, SELFPAY ==
--- NOTE | 2023-08-29 10:40 | MHC.OFFVIS ---
Intake Vital Signs 08/29/23 10:41 Height 6 ft Weight 209 lb 14.081 oz BMI 28.5 Pulse 84 Pulse Source Pulse Oximeter Pulse Oximetry (%) 98 Oxygen Delivery Method Room Air Intake Visit Reasons: Lung Pain [employer] Open [employer] Administrator Required: No Allergies empagliflozin [From Jardiance] Allergy (Severe, Verified 08/29/23 10:44) Itching morphine [Morphine] Allergy (Severe, Verified 08/29/23 10:44) HIVES, THROAT CLOSES penicillin G [Penicillin G] Allergy (Severe, Verified 08/29/23 10:44) ANAPHYLAXIS Sulfa (Sulfonamide Antibiotics) [SULFA (SULFONAMIDE ANTIBIOTICS)] Allergy (Severe, Verified 08/29/23 10:44) ANAPHYLAXIS Gadolinium-Containing Contrast Medi [Gadolinium-Containing Agents] Allergy (Intermediate, Verified 08/29/23 10:44) Hives/Rash, dizziness, blue spots Iodinated Contrast Media Allergy (Intermediate, Verified 08/29/23 10:44) hives,rash tramadol Adverse Reaction (Verified 08/29/23 10:44) Gastrointestinal Upset HPI HPI Comments History of Present Illness Details The patient is a 58-year-old gentleman with a history of obstructive sleep apnea who apparently developed COVID-19 little bit more than a year ago requiring ICU level of care. Subsequently after that his breathing has not been the same. He has had episodes of shortness of breath and has had to go to the ER multiple times because of worsening shortness of breath. He was provided with respiratory therapy including short-acting beta agonist. In addition to that he has been provided medications like prednisone. Subsequent please the patient was noted to have a recurrent pneumonia and a chest x-ray and treated with antibiotics. Does back in beginning of April. He did have a repeat chest x-ray that demonstrated resolution of the right-sided pneumonia. I did review all his imaging studies from the [facility] system. Initially when he was admitted with the COVID 19 he did not have a CT scan but did demonstrate that he had bilateral hazy opacities and decreased lung Expansion. Subsequently after that she did have the x-ray demonstrating the developing pneumonia in the right hemithorax. Still though he has never had a CT scan in view of his ongoing respiratory symptoms something that we will address the pending a how he response to this therapy in the meantime she has been struggling with CPAP. He had been on oxygen while he was in the hospital. . The CPAP was affecting beneficial before but does not appear to be helpful any longer. He is having some daytime drowsiness is within up tired. Machine appears to be broken as well. Therefore, he had a sleep study done because of his elevated Hitchita score of 14/24. The sleep study again demonstrates severe sleep apnea with an AHI greater than 40 significant hypoxia. Based on that will having undergo a CPAP BiPAP titration that the patient may need oxygen or may need a different type of PAP therapy. This is something we can arrange now in regards to his respiratory therapy the patient does have significant exhalation wheezing and coughing consistent likely a component of asthma and reactive airway disease that may have of all after developing a viral pneumonitis. Therefore will optimize respiratory therapy at this time. also to note the patient has not been vaccinated for COVID-19 because of concern of allergies that he has. I encouraged him to get vaccine as well as possible. But 1st I will check to see if he still has antibodies present. 11/15/2022 the patient is here for a pulmonary follow-up visit. Overall the patient is getting concerned because he has not gotten a new CPAP. Again he still waiting for his rest [place] replacement. In the meantime his current machine is not working effectively and he is to get a replacement. We did request a replacement machine back in June. I did call the [employer] again to see what the status is. I did provide him with an F20 medium mask that had in the office to make sure that he had adequate supplies in order to continue using his machine effectively. The therapy has been helpful for him. And he does uses CPAP for more than 4 hours a night. The patient still complains of that left-sided discomfort. Appears to be in a dermatomal distribution. We did review his last CT scan of the abdomen that she demonstrates lung cuts in that area and it is reassuring that he does not have any lung parenchymal changes even after having some significant COVID. It may be that he does have some degree of neuropathy in a dermatomal distribution. The patient will try the Lidoderm patches in that area. He is also no longer using the Lunesta. He can try some zvjg-phi-bqgpitc melatonin to see if that can help him sleep. 02/18/2023 the patient is here for pulmonary follow-up visit. The patient overall has been doing well. He is currently waiting to get his service agreement from the [employer] in order to start getting supplies. The patient also has been tolerating the new mask, F20 medium which seems to be working well for him. Patient overall feels better about that. His breathing still has some issues still complaining of chest pain now upon deep breathing consistent with his chronic pleuritic chest discomfort. He also has significant elbow pain now and shoulder discomfort that is been evaluated as well. For the last few days she has also had some wheezing although it does not appear to be that he is using his inhalers correctly. His is with him. She understands that he needs to take Dulera as prescribed which is twice a day and also should have the rescue inhaler available as needed. I will make sure to send the medication to the pharmacy. He is not using the Spiriva or any other inhalers that he has been prescribed in the past. 06/20/2023 the patient is here for hospital follow-up visit. He has had a very eventful summer. Continues to have significant left-sided chest discomfort which appears to be in a dermatomal distribution. The patient does have significant spinal stenosis. He was referred to pain management. The patient opted on not having any interventions. One recommendation was to have an MRI of the spine to further address his underlying pain and spinal stenosis history as well as disc disease. He continues to require pain management. We did review his CT scan of the abdomen that he had a [facility] back in March 2023. It appears to show little bit of the left lung base without any acute disease although minimal. Appears to have a small fluid collection on the right. This appears to be stable for the last few years. His last CT scan of the chest here at [place] was back in 2020 demonstrating no significant DU except for the again that right lower lobe fluid pleural base density. The patient will continue with that became patch and then also consider some Tylenol with codeine to provide some pain relief. In the meantime due to the significant history of spinal stenosis will go ahead and request an MRI to better address the issue and help him with his ongoing pain that he has had for years. Hears already perform physical therapy he has already taken in multiple medications without any significant relief. 08/29/2023 the patient is here for a pulmonary follow-up visit. He is still having issues with the back pain. Seems to be getting worse in addition to that radiates to the front of the chest. Moderate severity. Also been having little bit more shortness of breath has been using his Dulera and his rescue inhaler more often. We had scheduled for an MRI of the back but apparently he is allergic to contrast and therefore I referred him to Pain Management in order for them to evaluate the area. He has had had surgery in the past they may have to see neurosurgery or spine surgery for further management. Still should be evaluated by Pain Management 1st to see if he is a good candidate for any nonsurgical approaches. Patient has been using CPAP. He states that he has been bleeding from the nose anything noticing some bloody secretions within the tubing and the CPAP machine. The patient will try water-based lubricant or saline gel and he will try to increase the humidity of the CPAP machine. If he has any difficulties he will call the office. I will also call the [employer] to see if I can get access to adjust the machine from that website. In view of his worsening respiratory symptoms will go ahead and switch him from Dulera to breztri with the hope that he gets better bronchodilation affect. He does have surgery scheduled for the beginning of October for his rotator cuff injury. [facility] Medical History (Updated 06/20/23 @ 13:02 by Renato Saba MD) Lumbar post-laminectomy syndrome Degenerative cervical spinal stenosis Neuropathic pain COVID-19 Chest pain Post herpetic neuralgia Pleuritic chest pain Obesity (BMI 30-39.9) Asthma Pneumonia SONY (obstructive sleep apnea) [id number] syndrome Reactive airway disease On beta mitra at home History of pneumonia Vitamin D deficiency Left nephrolithiasis Dyslipidemia Diabetic polyneuropathy associated with type 2 diabetes mellitus Hypogonadism Obstructive sleep apnea Failed back syndrome of lumbar spine Arthritis Back pain GERD (gastroesophageal reflux disease) History of fatty infiltration of liver History of ADHD Depression Sleep apnea Elevated cholesterol HTN (hypertension) CAD (coronary artery disease) History of 2019 novel coronavirus disease (COVID-19) Cervical radiculopathy Nephrolithiasis Surgical History (Updated 05/24/23 @ 16:10 by Aurea Castañeda LAST PATTERN GRADER-C) S/P cardiac catheterization History of kidney surgery Gynecomastia History of elbow surgery Hx laparoscopic cholecystectomy History of carpal tunnel release Hx of shoulder surgery Hx of arthroscopic knee surgery History of esophagogastroduodenoscopy (EGD) H/O colonoscopy Hx of lumbar discectomy Hx of cardiac catheterization Family History Father Diabetes Hypertension Myocardial infarction Mother Diabetes Stroke Alzheimers disease Pacemaker Brother Diabetes Heart problem Myocardial infarction Sister Myocardial infarction Maternal Grandmother Myocardial infarction Household Members: Spouse and Family Housing: Apartment Are you a primary live in caregiver to a significant other at home: No Do you presently have visiting nurse or other home services: No Alcohol intake: never Patient Tobacco Use Status: Never used Tobacco e-Cigarette/Vaping Use: Never Used Second Hand Smoke Exposure: No service: No Current occupational status: disabled Review of Systems Const Denies fatigue, Denies weight gain and Reports weight loss Eyes Denies blurry vision ENT Denies epistaxis and Denies sore throat Card Reports chest pain, Denies palpitations and Denies dyspnea Resp Denies cough, Reports pain on inspiration and Denies dyspnea GI Denies constipation and Denies diarrhea Denies dysuria and Denies urinary frequency Musc Reports back pain, Reports arthralgias, Reports joint swelling, Reports limited range of motion, Denies muscle cramps, Denies muscle weakness, Reports numbness and Reports tingling Neuro Denies burning sensations, Reports numbness, Reports tingling and Denies paresthesias Psych Denies depression Endo Denies fatigue, Denies polydipsia, Denies polyuria and Denies palpitations Tejas/Lymph Denies easy bruising Physical Exam Vital Signs: Last Vital Signs Pulse 84 08/29/23 10:41 Pulse Ox 98 08/29/23 10:41 Oxygen Delivery Method Room Air 08/29/23 10:41 BMI result Body Mass Index 28.5 Const General: no acute distress and alert HEENT Head: Yes normocephalic and Yes atraumatic Eyes Sclerae: sclerae normal EOM: EOMs intact bilaterally Neck Neck: Yes no lymphadenopathy, Yes trachea midline and Yes no JVD Thyroid: Thyroid normal Chest Chest palpation & inspection: normal inspection of the chest Resp Effort & Inspection: normal respiratory effort Auscultation: diminished lung sounds Cardio Rate: regular rate Rhythm: regular rhythm Heart sounds: S1 normal heart sound present and S2 normal heart sound present Peripheral pulses: Peripheral pulses 2+ throughout GI Inspection: Yes normal to inspection and No distended Auscultation: normal bowel sounds Skin Other: No acanthosis nigricans or diabetic dermopathy Neuro Sensory Exam: Trunk sensory exam abnormal (tenderness skin palpation superficial pain dermatomal distributibution) Deep tendon reflexes (DTR's): Rt Biceps (C5, C6): 2+, Left biceps reflex intensity grade: 2+, Right patellar reflex intensity grade: 2+ and Left patellar reflex intensity grade: 2+ Extrem Other: Foot inspection: No lesions, ulcers. + oncymychosis General: Yes normal gait, No clubbing, No cyanosis and No edema Psych Affect: normal affect Attitude: cooperative Assessment & Plan Assessment & Plan (1) SONY (obstructive sleep apnea): Code(s): G47.33 - Obstructive sleep apnea (adult) (pediatric) (2) [id number] syndrome: Code(s): B94.8 - Sequelae of other specified infectious and parasitic diseases (3) Reactive airway disease: Code(s): J45.909 - Unspecified asthma, uncomplicated Qualifiers: Asthma complication type: uncomplicated Asthma persistence: persistent Asthma severity: moderate Qualified Code(s): J45.40 - Moderate persistent asthma, uncomplicated (4) Asthma: Code(s): J45.909 - Unspecified asthma, uncomplicated Qualifiers: Asthma complication type: uncomplicated Asthma persistence: persistent Asthma severity: moderate Qualified Code(s): J45.40 - Moderate persistent asthma, uncomplicated (5) Radicular pain: Code(s): M54.10 - Radiculopathy, site unspecified (6) Chest discomfort: Code(s): R07.89 - Other chest pain (7) Lumbar post-laminectomy syndrome: Code(s): M96.1 - Postlaminectomy syndrome, not elsewhere classified (8) Radiculopathy due to lumbar intervertebral disc disorder: Code(s): M51.16 - Intervertebral disc disorders with radiculopathy, lumbar region (9) Epistaxis: Code(s): R04.0 - Epistaxis Plan stop Dulera, not using Spiriva start Breztri BID short-acting beta agonist as needed nebulizer that he can use as needed lidoderm patch to the left sided neuropathy continue APAP therapy, medium F20 mask, should increase humidity to avoid epistaxis Tylenol#3 as needed for pain pain consult referral for radicular pain ? surgical versus non surgical approach F/U 2-3 months Medications: New drjobxosrz-cwzrsjzc-cmuljnpqnm 160-9-4.8 mcg/actuation (Breztri Aerosphere) 2 inhalations inhalation BID 30 days 10.7 grams 10RF Coding Level of Care Code Est Pt Level 4 (48501) Diagnoses SONY (obstructive sleep apnea) G47.33 [id number] syndrome B94.8 Moderate persistent reactive airway disease without complication J45.40 Asthma complication type: uncomplicated Asthma persistence: persistent Asthma severity: moderate Moderate persistent asthma without complication J45.40 Asthma complication type: uncomplicated Asthma persistence: persistent Asthma severity: moderate Radicular pain M54.10 Chest discomfort R07.89 Lumbar post-laminectomy syndrome M96.1 Radiculopathy due to lumbar intervertebral disc disorder M51.16 Epistaxis R04.0 Time Spent (min) 17
[2023-08-29 10:41] VITALS: PULSE 84; O2SAT 98; BMI 28.5
== END 2023-08-29 11:19 | disposition home or self-care (01) ==
PROVIDERS: PCP Nurse Practitioner; Visit Provider Hospitalist
DX: G47.33 Obstructive sleep apnea (adult) (pediatric) (principal); B94.8 Sequelae of other specified infectious and parasitic diseases; J45.40 Moderate persistent asthma, uncomplicated; M54.10 Radiculopathy, site unspecified; R07.89 Other chest pain; M96.1 Postlaminectomy syndrome, not elsewhere classified; M51.16 Intervertebral disc disorders with radiculopathy, lumbar region; R04.0 Epistaxis
CPT/HCPCS: 99214

== ENCOUNTER → 2023-08-29 10:29 | Outpatient (BNVA) | payer OTHER, SELFPAY | PROVIDERS: PCP Nurse Practitioner; Visit Provider Hospitalist | DX: J45.40 Moderate persistent asthma, uncomplicated (principal); G47.33 Obstructive sleep apnea (adult) (pediatric); B94.8 Sequelae of other specified infectious and parasitic diseases; M54.10 Radiculopathy, site unspecified; R07.89 Other chest pain; M96.1 Postlaminectomy syndrome, not elsewhere classified; M51.16 Intervertebral disc disorders with radiculopathy, lumbar region; R04.0 Epistaxis | CPT/HCPCS: 99212 ==

== ENCOUNTER 2023-09-05 13:44 | Outpatient (AMB) | payer OTHER, SELFPAY ==
--- NOTE | 2023-09-05 13:47 | MHC.OFFVIS ---
Intake Vital Signs 09/05/23 13:48 Height 6 ft Weight 240 lb BMI 32.5 Blood Pressure Location Lt brachial Position Sitting Respiration 12 Pulse 75 Pulse Source Pulse Oximeter Pulse Oximetry (%) 97 Oxygen Delivery Method Room Air Intake Visit Reasons: Inter disc disorders w/radiculopathy, lumbar/conf Allergies empagliflozin [From Jardiance] Allergy (Severe, Verified 09/09/23 08:09) Itching morphine [Morphine] Allergy (Severe, Verified 09/09/23 08:09) HIVES, THROAT CLOSES penicillin G [Penicillin G] Allergy (Severe, Verified 09/09/23 08:09) ANAPHYLAXIS Sulfa (Sulfonamide Antibiotics) [SULFA (SULFONAMIDE ANTIBIOTICS)] Allergy (Severe, Verified 09/09/23 08:09) ANAPHYLAXIS Gadolinium-Containing Contrast Medi [Gadolinium-Containing Agents] Allergy (Intermediate, Verified 09/09/23 08:09) Hives/Rash, dizziness, blue spots Iodinated Contrast Media Allergy (Intermediate, Verified 09/09/23 08:09) hives,rash tramadol Adverse Reaction (Verified 09/09/23 08:09) Gastrointestinal Upset Medication List - Last Reconciled 09/05/23 by Fiordaliza Castrejon LPN acetaminophen-codeine 300-15 mg 1 tab PO Q12H PRN 10 days albuterol sulfate 90 mcg/actuation (Ventolin HFA) 2 puffs inhalation QID PRN 30 days amlodipine 5 mg PO DAILY azelastine 2 sprays intranasal BID 30 days blood sugar diagnostic (FreeStyle Lite Strips) 4 times a day blood-glucose meter (FreeStyle Lite Meter kit) As directed 4x/day blood-glucose meter,continuous (Dexcom G6 Music Store Manager) As directed blood-glucose sensor (Dexcom G6 Sensor device) As directed every 10 days blood-glucose transmitter (Dexcom G6 Transmitter device) As directed one every 3 months nmpoqqfhbi-mabzndzj-anmhkjodfr 160-9-4.8 mcg/actuation (Breztri Aerosphere) 2 inhalations inhalation BID 30 days carboxymethylcellulose sodium 0.5% (Refresh Tears) 1 drp ophthalmic (eye) BID cholecalciferol (vitamin D3) 50 mcg PO DAILY diphenhydramine HCl (Benadryl) 25 mg PO BID 2 days dulaglutide (Trulicity) 4.5 mg (0.5 mL) subcut QWEEK ezetimibe 10 mg PO DAILY famotidine (Pepcid) 20 mg PO BID 2 days flash glucose scanning reader (FreeStyle Eneida 2 [place]) As directed flash glucose sensor (FreeStyle Eneida 2 Sensor kit) As directed every 2 weeks fluoxetine 40 mg PO DAILY 90 days lancets (FreeStyle Lancets) 4 times a day lidocaine 5% (Lidoderm) 1 patch topical DAILY 30 days lisinopril 10 mg PO DAILY melatonin 5 mg PO BEDTIME PRN 30 days metformin ER 1,000 mg PO QAM metoprolol tartrate 50 mg PO BID mometasone-formoterol 200-5 mcg/actuation (Dulera) 2 puffs inhalation Q12H 30 days omeprazole 40 mg PO BID pen needle, diabetic As directed pregabalin 150 mg PO BID rosuvastatin 40 mg PO DAILY sodium chloride-aloe vera ([place] Saline Gel nasal spray) 1 spray intranasal BID 30 days tamsulosin 0.4 mg PO DAILY HPI Inter disc disorders w/radiculopathy, lumbar/conf HPI Details 58-year-old male who presents today to the office for unexplained episodes of chest tightness and pain. He has a past medical history of hypertension, hyperlipidemia, diabetes, obstructive sleep apnea, mild obesity, and nonobstructive coronary artery disease. He reports getting some discomfort in his left chest region, along with radiation into his left arm. He had 3-4 episodes that lasted for about two days last month. His symptoms started after COVID-19 infection. He was seen in the [place] ER twice and ruled out for ACS. The pain is not related to his eating. He sometimes wakes up at night from sleep due to chest heaviness and SOB. The episodes resolve on their own after a while but is very bothersome during the episode. He denies any sweating or erythema. His back pain is not bothersome. He had back surgery in 2001. He has a scheduled shoulder surgery on 10/06/23. His last HbA1C was 5.5%. [facility] Medical History (Updated 09/12/23 @ 15:52 by David Saini MD) Lumbar post-laminectomy syndrome Degenerative cervical spinal stenosis Neuropathic pain COVID-19 Chest pain Post herpetic neuralgia Pleuritic chest pain Obesity (BMI 30-39.9) Asthma Pneumonia SONY (obstructive sleep apnea) [id number] syndrome Reactive airway disease On beta mitra at home History of pneumonia Vitamin D deficiency Left nephrolithiasis Dyslipidemia Diabetic polyneuropathy associated with type 2 diabetes mellitus Hypogonadism Obstructive sleep apnea Failed back syndrome of lumbar spine Arthritis Back pain GERD (gastroesophageal reflux disease) History of fatty infiltration of liver History of ADHD Depression Sleep apnea Elevated cholesterol HTN (hypertension) CAD (coronary artery disease) History of 2019 novel coronavirus disease (COVID-19) Cervical radiculopathy Nephrolithiasis Surgical History (Updated 05/24/23 @ 16:10 by Aurea Castañeda, [employer]-C) S/P cardiac catheterization History of kidney surgery Gynecomastia History of elbow surgery Hx laparoscopic cholecystectomy History of carpal tunnel release Hx of shoulder surgery Hx of arthroscopic knee surgery History of esophagogastroduodenoscopy (EGD) H/O colonoscopy Hx of lumbar discectomy Hx of cardiac catheterization Family History Father Diabetes Hypertension Myocardial infarction Mother Diabetes Stroke Alzheimers disease Pacemaker Brother Diabetes Heart problem Myocardial infarction Sister Myocardial infarction Maternal Grandmother Myocardial infarction Social History Household Members: Spouse and Family Housing: Apartment Are you a primary child care leader to a significant other at home: No Do you presently have visiting nurse or other home services: No Alcohol intake: never Patient Tobacco Use Status: Never used Tobacco e-Cigarette/Vaping Use: Never Used Second Hand Smoke Exposure: No service: No Current occupational status: disabled Review of Systems Const All systems reviewed & are unremarkable except as noted in HPI and below Physical Exam Vital Signs: Last Vital Signs Pulse 75 09/05/23 13:48 Resp 12 09/05/23 13:48 Pulse Ox 97 09/05/23 13:48 Oxygen Delivery Method Room Air 09/05/23 13:48 BMI result Body Mass Index 32.5 General: Appears afebrile. Alert and oriented. Mood and affect appropriate. Follows and participates in conversation appropriately. Respiratory effort is unlabored. Able to transition from sit to stand unassisted. Ambulates with bilaterally normal heel strike and toe off. Results Reviewed Results Reviewed: No imaging is available for review. Assessment & Plan Assessment & Plan (1) Autonomic dysreflexia: Comment: chest tightness, sweating, UE pain Code(s): G90.4 - Autonomic dysreflexia (2) Chest pain: Code(s): R07.9 - Chest pain, unspecified Plan Will schedule him for left stellate ganglion block. Cardiac workup has been negative. He appears to be having episodes of autonomic dysregulation that may have been precipitated by COVID-19 infection. Discussed the risks and benefits of the procedure with the patient in detail. All questions were answered. The patient is on board with the plan. Justification for interventional therapy: ? Patient with average pain > 6/10 ? Patient has exhausted conservative therapy Scribed for Dr. Saini by Hemant Toure, medical staff services manager, on 09/05/2023. I, Dr. Saini, have personally reviewed and agree with the information entered by the scribe. Coding Level of Care Code Est Pt Level 3 (17195) Diagnoses Autonomic dysreflexia G90.4 Other chest pain R07.9
[2023-09-05 13:48] VITALS: PULSE 75; RESP 12; O2SAT 97; BMI 32.5
== END 2023-09-05 14:36 | disposition home or self-care (01) ==
PROVIDERS: PCP Nurse Practitioner; Visit Provider Internal Medicine
DX: G90.4 Autonomic dysreflexia (principal); R07.9 Chest pain, unspecified
CPT/HCPCS: 99213

== ENCOUNTER → 2023-09-05 13:44 | Outpatient (BNVA) | payer OTHER, SELFPAY | PROVIDERS: PCP Nurse Practitioner; Visit Provider Internal Medicine | DX: G90.4 Autonomic dysreflexia (principal); R07.9 Chest pain, unspecified | CPT/HCPCS: 99212 ==

== ENCOUNTER 2023-09-09 07:56 | Outpatient (AMB) | payer OTHER, SELFPAY ==
--- NOTE | 2023-09-09 08:07 | A.OFFVIS_ITS ---
Intake Vital Signs 09/09/23 08:08 Height 6 ft Weight 240 lb BMI 32.5 Blood Pressure Location Lt brachial Position Sitting Respiration 12 Pulse 75 Pulse Source Pulse Oximeter Pulse Oximetry (%) 98 Oxygen Delivery Method Room Air Intake Visit Reasons: left stellate ganglion block/confirmed Allergies empagliflozin [From Jardiance] Allergy (Severe, Verified 09/09/23 08:09) Itching morphine [Morphine] Allergy (Severe, Verified 09/09/23 08:09) HIVES, THROAT CLOSES penicillin G [Penicillin G] Allergy (Severe, Verified 09/09/23 08:09) ANAPHYLAXIS Sulfa (Sulfonamide Antibiotics) [SULFA (SULFONAMIDE ANTIBIOTICS)] Allergy (Severe, Verified 09/09/23 08:09) ANAPHYLAXIS Gadolinium-Containing Contrast Medi [Gadolinium-Containing Agents] Allergy (Intermediate, Verified 09/09/23 08:09) Hives/Rash, dizziness, blue spots Iodinated Contrast Media Allergy (Intermediate, Verified 09/09/23 08:09) hives,rash tramadol Adverse Reaction (Verified 09/09/23 08:09) Gastrointestinal Upset Medication List - Last Reconciled 09/09/23 by Fiordaliza Castrejon LPN acetaminophen-codeine 300-15 mg 1 tab PO Q12H PRN 10 days albuterol sulfate 90 mcg/actuation (Ventolin HFA) 2 puffs inhalation QID PRN 30 days amlodipine 5 mg PO DAILY azelastine 2 sprays intranasal BID 30 days blood sugar diagnostic (FreeStyle Lite Strips) 4 times a day blood-glucose meter (FreeStyle Lite Meter kit) As directed 4x/day blood-glucose meter,continuous (Dexcom G6 Check Totaler) As directed blood-glucose sensor (Dexcom G6 Sensor device) As directed every 10 days blood-glucose transmitter (Dexcom G6 Transmitter device) As directed one every 3 months qtsrtgaimc-wtogtpvg-xauggrhicu 160-9-4.8 mcg/actuation (Breztri Aerosphere) 2 inhalations inhalation BID 30 days carboxymethylcellulose sodium 0.5% (Refresh Tears) 1 drp ophthalmic (eye) BID cholecalciferol (vitamin D3) 50 mcg PO DAILY diphenhydramine HCl (Benadryl) 25 mg PO BID 2 days dulaglutide (Trulicity) 4.5 mg (0.5 mL) subcut QWEEK ezetimibe 10 mg PO DAILY famotidine (Pepcid) 20 mg PO BID 2 days flash glucose scanning reader (FreeStyle Eneida 2 [place]) As directed flash glucose sensor (FreeStyle Eneida 2 Sensor kit) As directed every 2 weeks fluoxetine 40 mg PO DAILY 90 days lancets (FreeStyle Lancets) 4 times a day lidocaine 5% (Lidoderm) 1 patch topical DAILY 30 days lisinopril 10 mg PO DAILY melatonin 5 mg PO BEDTIME PRN 30 days metformin ER 1,000 mg PO QAM metoprolol tartrate 50 mg PO BID mometasone-formoterol 200-5 mcg/actuation (Dulera) 2 puffs inhalation Q12H 30 days omeprazole 40 mg PO BID pen needle, diabetic As directed pregabalin 150 mg PO BID rosuvastatin 40 mg PO DAILY sodium chloride-aloe vera ([place] Saline Gel nasal spray) 1 spray intranasal BID 30 days tamsulosin 0.4 mg PO DAILY HPI left stellate ganglion block/confirmed HPI Details 58-year-old male who presents today to t he office for a left stellate ganglion block. Denies any recent cough, cold, infection, fever or other significant changes in medical history since last office visit. [facility] Medical History (Updated 09/12/23 @ 15:52 by David Saini MD) Lumbar post-laminectomy syndrome Degenerative cervical spinal stenosis Neuropathic pain COVID-19 Chest pain Post herpetic neuralgia Pleuritic chest pain Obesity (BMI 30-39.9) Asthma Pneumonia SONY (obstructive sleep apnea) [id number] syndrome Reactive airway disease On beta mitra at home History of pneumonia Vitamin D deficiency Left nephrolithiasis Dyslipidemia Diabetic polyneuropathy associated with type 2 diabetes mellitus Hypogonadism Obstructive sleep apnea Failed back syndrome of lumbar spine Arthritis Back pain GERD (gastroesophageal reflux disease) History of fatty infiltration of liver History of ADHD Depression Sleep apnea Elevated cholesterol HTN (hypertension) CAD (coronary artery disease) History of 2019 novel coronavirus disease (COVID-19) Cervical radiculopathy Nephrolithiasis Surgical History (Updated 05/24/23 @ 16:10 by Aurea Castañeda MONKEY TRAINER-C) S/P cardiac catheterization History of kidney surgery Gynecomastia History of elbow surgery Hx laparoscopic cholecystectomy History of carpal tunnel release Hx of shoulder surgery Hx of arthroscopic knee surgery History of esophagogastroduodenoscopy (EGD) H/O colonoscopy Hx of lumbar discectomy Hx of cardiac catheterization Family History Father Diabetes Hypertension Myocardial infarction Mother Diabetes Stroke Alzheimers disease Pacemaker Brother Diabetes Heart problem Myocardial infarction Sister Myocardial infarction Maternal Grandmother Myocardial infarction Social History Household Members: Spouse and Family Housing: Apartment Are you a primary critical care registered nurse to a significant other at home: No Do you presently have visiting nurse or other home services: No Alcohol intake: never Patient Tobacco Use Status: Never used Tobacco e-Cigarette/Vaping Use: Never Used Second Hand Smoke Exposure: No service: No Current occupational status: disabled Review of Systems Const All systems reviewed & are unremarkable except as noted in HPI and below Physical Exam Vital Signs: Last Vital Signs Pulse 75 09/09/23 08:08 Resp 12 09/09/23 08:08 Pulse Ox 98 09/09/23 08:08 Oxygen Delivery Method Room Air 09/09/23 08:08 BMI result Body Mass Index 32.5 General: Appears afebrile. Alert and oriented. Mood and affect appropriate. Follows and participates in conversation appropriately. Respiratory effort is unlabored. Able to transition from sit to stand unassisted. Ambulates with bilaterally normal heel strike and toe off. Office Procedures Nerve Block Details: Left stellate ganglion block, ultrasound guided. After obtaining written consent, pre-procedure pulse and blood pressure were stable and available in the patient's chart for review. The patient was placed in the supine position. The patient was prepped and draped in a sterile manner. The neck anatomy was identified with the ultrasound machine. The carotid artery, trachea and longus colli muscle were identified. A 21G pajunk needle was inserted and advanced in real time under ultrasound guidance to the body of the longus colli muscle. There was no evidence of paresthesia, heme, or CSF. An injection was performed with 5 ml of normal saline followed by 8 mL of 1% lidocaine. This was administered over a two to three minute period with frequent aspirations, all of which were negative. 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 There was no evidence of motor blockade. The patient tolerated the procedure well. Following the procedure the patient's vital signs were stable. The patient was discharged home in good condition after being given discharge instructions. Time Out: Immediately prior to the procedure, the following was verbally confirmed that there is a signed consent form and that the correct patient, planned procedure, site and side are consistent with documentation and that necessary equipment and/or blood products are available prior to the start of the case. Complications: none EBL: <2 cc An ultrasound image of the injection was taken and stored in the permanent record. 56523 - Stellate Ganglion Procedure code (CPT) selection complete Results Reviewed Results Reviewed: No imaging is available for review. 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 Patient tolerated procedure well and was discharged home in stable condition with discharge instructions. All questions were answered. We will follow-up in two weeks via telephone or in clinic to assess response to therapy. A follow-up appointment was made during today's visit. Scribed for Dr. Saini by Hemant Toure, curator medical museum, on 09/09/2023. I, Dr. Saini, have personally reviewed and agree with the information entered by the scribe. Coding Level of Care Code Procedure Only Diagnoses [id number] syndrome B94.8 Autonomic dysreflexia G90.4 CPT Codes Nerve Block - Nerve Block 11: 57457 - Stellate Ganglion ([id number])
[2023-09-09 08:08] VITALS: PULSE 75; RESP 12; O2SAT 98; BMI 32.5
== END 2023-09-09 09:00 | disposition home or self-care (01) ==
PROVIDERS: PCP Nurse Practitioner; Visit Provider Internal Medicine
DX: B94.8 Sequelae of other specified infectious and parasitic diseases (principal); G90.4 Autonomic dysreflexia
CPT/HCPCS: 64510; 76942

== ENCOUNTER → 2023-09-09 07:56 | Outpatient (BNVA) | payer OTHER, SELFPAY | PROVIDERS: PCP Nurse Practitioner; Visit Provider Internal Medicine | DX: B94.8 Sequelae of other specified infectious and parasitic diseases (principal); G90.4 Autonomic dysreflexia | CPT/HCPCS: 64510 ==

== ENCOUNTER 2023-09-19 14:37 | Outpatient (AMB) | payer OTHER, SELFPAY ==
[2023-09-19 14:47] VITALS: PULSE 77; RESP 12; O2SAT 97; BMI 32.5
--- NOTE | 2023-09-19 14:47 | MHC.OFFVIS ---
Intake Vital Signs 09/19/23 14:47 Height 6 ft Weight 240 lb BMI 32.5 Blood Pressure Location Lt brachial Position Sitting Respiration 12 Pulse 77 Pulse Source Pulse Oximeter Pulse Oximetry (%) 97 Oxygen Delivery Method Room Air Intake Visit Reasons: s/p Stellate Ganglion Block/lvm Allergies empagliflozin [From Jardiance] Allergy (Severe, Verified 09/19/23 14:49) Itching morphine [Morphine] Allergy (Severe, Verified 09/19/23 14:49) HIVES, THROAT CLOSES penicillin G [Penicillin G] Allergy (Severe, Verified 09/19/23 14:49) ANAPHYLAXIS Sulfa (Sulfonamide Antibiotics) [SULFA (SULFONAMIDE ANTIBIOTICS)] Allergy (Severe, Verified 09/19/23 14:49) ANAPHYLAXIS Gadolinium-Containing Contrast Medi [Gadolinium-Containing Agents] Allergy (Intermediate, Verified 09/19/23 14:49) Hives/Rash, dizziness, blue spots Iodinated Contrast Media Allergy (Intermediate, Verified 09/19/23 14:49) hives,rash tramadol Adverse Reaction (Verified 09/19/23 14:49) Gastrointestinal Upset Medication List - Last Reconciled 09/19/23 by Fiordaliza Castrejon LPN acetaminophen-codeine 300-15 mg 1 tab PO Q12H PRN 10 days albuterol sulfate 90 mcg/actuation (Ventolin HFA) 2 puffs inhalation QID PRN 30 days amlodipine 5 mg PO DAILY azelastine 2 sprays intranasal BID 30 days blood sugar diagnostic (FreeStyle Lite Strips) 4 times a day blood-glucose meter (FreeStyle Lite Meter kit) As directed 4x/day blood-glucose meter,continuous (Dexcom G6 Paramedic Instructor) As directed blood-glucose sensor (Dexcom G6 Sensor device) As directed every 10 days blood-glucose transmitter (Dexcom G6 Transmitter device) As directed one every 3 months ieiqswaayo-kplskkob-jfkdcfjdup 160-9-4.8 mcg/actuation (Breztri Aerosphere) 2 inhalations inhalation BID 30 days carboxymethylcellulose sodium 0.5% (Refresh Tears) 1 drp ophthalmic (eye) BID cholecalciferol (vitamin D3) 50 mcg PO DAILY diphenhydramine HCl (Benadryl) 25 mg PO BID 2 days dulaglutide (Trulicity) 4.5 mg (0.5 mL) subcut QWEEK ezetimibe 10 mg PO DAILY famotidine (Pepcid) 20 mg PO BID 2 days flash glucose scanning reader (FreeStyle Eneida 2 [place]) As directed flash glucose sensor (FreeStyle Eneida 2 Sensor kit) As directed every 2 weeks fluoxetine 40 mg PO DAILY 90 days lancets (FreeStyle Lancets) 4 times a day lidocaine 5% (Lidoderm) 1 patch topical DAILY 30 days lisinopril 10 mg PO DAILY melatonin 5 mg PO BEDTIME PRN 30 days metformin ER 1,000 mg PO QAM metoprolol tartrate 50 mg PO BID mometasone-formoterol 200-5 mcg/actuation (Dulera) 2 puffs inhalation Q12H 30 days omeprazole 40 mg PO BID pen needle, diabetic As directed pregabalin 150 mg PO BID rosuvastatin 40 mg PO DAILY sodium chloride-aloe vera ([place] Saline Gel nasal spray) 1 spray intranasal BID 30 days tamsulosin 0.4 mg PO DAILY HPI s/p Stellate Ganglion Block/lvm HPI Details 58-year-old male who presents today to the office for a status post stellate ganglion block. His chest tightness symptoms have significantly improved. ? Today he reports neck pain and shoulder pain, especially on the right, which have been longstanding problems for him. He did three weeks of physical therapy two years ago for neck pain, which was not helpful at all. He states that he continues to perform PT exercises at home that were prescribed to him at that time. He states that he had a neck injury at the age of 6. In the past he has had cortisone injections at [facility], which would provide 6 months of relief at a time. Pain today is described mostly in the axial neck radiating towards the right shoulder. It is more than 8/10 in intensity at its worst and limits his neck range of motion. ? Past Procedures: 09/09/23: Left stellate ganglion block, ultrasound guided: Significant improvement in chest tightness symptoms [facility] Medical History (Updated 09/20/23 @ 14:56 by David Saini MD) Lumbar post-laminectomy syndrome Degenerative cervical spinal stenosis Neuropathic pain COVID-19 Chest pain Post herpetic neuralgia Pleuritic chest pain Obesity (BMI 30-39.9) Asthma Pneumonia SONY (obstructive sleep apnea) [id number] syndrome Reactive airway disease On beta mitra at home History of pneumonia Vitamin D deficiency Left nephrolithiasis Dyslipidemia Diabetic polyneuropathy associated with type 2 diabetes mellitus Hypogonadism Obstructive sleep apnea Failed back syndrome of lumbar spine Arthritis Back pain GERD (gastroesophageal reflux disease) History of fatty infiltration of liver History of ADHD Depression Sleep apnea Elevated cholesterol HTN (hypertension) CAD (coronary artery disease) History of 2019 novel coronavirus disease (COVID-19) Cervical radiculopathy Nephrolithiasis Surgical History (Updated 05/24/23 @ 16:10 by Aurea Castañeda, HVAC FIELD SERVICE TECHNICIAN-C) S/P cardiac catheterization History of kidney surgery Gynecomastia History of elbow surgery Hx laparoscopic cholecystectomy History of carpal tunnel release Hx of shoulder surgery Hx of arthroscopic knee surgery History of esophagogastroduodenoscopy (EGD) H/O colonoscopy Hx of lumbar discectomy Hx of cardiac catheterization Family History Father Diabetes Hypertension Myocardial infarction Mother Diabetes Stroke Alzheimers disease Pacemaker Brother Diabetes Heart problem Myocardial infarction Sister Myocardial infarction Maternal Grandmother Myocardial infarction Social History Household Members: Spouse and Family Housing: Apartment Are you a primary intensive care anaesthetist to a significant other at home: No Do you presently have visiting nurse or other home services: No Alcohol intake: never Patient Tobacco Use Status: Never used Tobacco e-Cigarette/Vaping Use: Never Used Second Hand Smoke Exposure: No service: No Current occupational status: disabled Review of Systems Const All systems reviewed & are unremarkable except as noted in HPI and below Physical Exam Vital Signs: Last Vital Signs Pulse 77 09/19/23 14:47 Resp 12 09/19/23 14:47 Pulse Ox 97 09/19/23 14:47 Oxygen Delivery Method Room Air 09/19/23 14:47 BMI result Body Mass Index 32.5 General: Appears afebrile. Alert and oriented. Mood and affect appropriate. Follows and participates in conversation appropriately. Respiratory effort is unlabored. Able to transition from sit to stand unassisted. Ambulates with bilaterally normal heel strike and toe off. Cervical extension reproduces pain on both sides. Cervical facet loading reproduces pain on the right side. Results Reviewed Results Reviewed: No imaging is available for review. Assessment & Plan Assessment & Plan (1) Cervical spondylosis: Code(s): M47.812 - Spondylosis without myelopathy or radiculopathy, cervical region (2) Autonomic dysreflexia: Comment: chest tightness, sweating, UE pain Code(s): G90.4 - Autonomic dysreflexia Plan Discussed RFA vs. temporary nerve stimulator as possible treatment options, for what appears to be chronic intractable pain secondary to cervical spondylosis. Will schedule him for a right C4-C5-C6 diagnostic MBB. Discussed the risks and benefits of the procedure with the patient in detail. All questions were answered. The patient is on board with the plan. A device brochure was provided to the patient. Justification for interventional therapy: ? Patient with average pain > 6/10 ? Patient has exhausted conservative therapy ? Patient continuing home exercise program Scribed for Dr. Saini by Hemant Toure, medical biller coder, on 09/19/2023. I, Dr. Saini, have personally reviewed and agree with the information entered by the scribe. Coding Level of Care Code Est Pt Level 4 (74687) Diagnoses Cervical spondylosis M47.812 Autonomic dysreflexia G90.4
== END 2023-09-19 15:02 | disposition home or self-care (01) ==
PROVIDERS: PCP Nurse Practitioner; Visit Provider Internal Medicine
DX: M47.812 Spondylosis without myelopathy or radiculopathy, cervical region (principal); G90.4 Autonomic dysreflexia
CPT/HCPCS: 99214

== ENCOUNTER → 2023-09-19 14:37 | Outpatient (BNVA) | payer OTHER, SELFPAY | PROVIDERS: PCP Nurse Practitioner; Visit Provider Internal Medicine | DX: M47.812 Spondylosis without myelopathy or radiculopathy, cervical region (principal); G90.4 Autonomic dysreflexia | CPT/HCPCS: 99212 ==

== ENCOUNTER → 2023-09-23 11:14 | Outpatient (BNVA) | payer OTHER, SELFPAY | PROVIDERS: PCP Nurse Practitioner; Visit Provider Physician Assistant ==

== ENCOUNTER 2023-11-03 06:16 | Outpatient (REF) | payer OTHER, SELFPAY ==
--- NOTE | ~2023-11-03 | FL_ITS ---
INDICATION: Intraoperative fluoroscopy. FLUOROSCOPY: Fluoroscopy Time: 0.1 minutes Dose/air kerma: 2.91 mGy Images saved: 2 FINDINGS: Multiple intraoperative fluoroscopic images are submitted during surgical procedure of the cervical spine. Correlation with operative report. Evaluation is limited secondary to fluoroscopic technique. IMPRESSION: Intra-operative fluoroscopic imaging provided by radiology during surgical procedure of the cervical spine. Please refer to operative note for further information.
== END 2023-11-03 06:17 | disposition home or self-care (01) ==
LOC: CF 06:16
PROVIDERS: Visit Provider Internal Medicine
DX: M47.812 Spondylosis without myelopathy or radiculopathy, cervical region (principal)
CPT/HCPCS: 64490; 64491; J2795; Q9967

== ENCOUNTER 2023-11-03 14:02 | Outpatient (AMB) | payer OTHER, SELFPAY ==
--- NOTE | 2023-11-03 14:18 | A.OFFVIS_ITS ---
Intake Vital Signs 11/03/23 14:52 11/03/23 14:53 Height 6 ft 6 ft Weight 232 lb 232 lb BMI 31.5 31.5 BP 132/74 136/80 Blood Pressure Location Lt brachial Lt brachial Position Sitting Sitting Respiration 18 18 Pulse 67 66 Pulse Source Pulse Oximeter Pulse Oximeter Pulse Oximetry (%) 96 98 Oxygen Delivery Method Room Air Room Air Comment pre-op post-op Intake Visit Reasons: Right Dx C4-C5-C6 MBB Allergies empagliflozin [From Jardiance] Allergy (Severe, Verified 11/03/23 14:55) Itching morphine [Morphine] Allergy (Severe, Verified 11/03/23 14:55) HIVES, THROAT CLOSES penicillin G [Penicillin G] Allergy (Severe, Verified 11/03/23 14:55) ANAPHYLAXIS Sulfa (Sulfonamide Antibiotics) [SULFA (SULFONAMIDE ANTIBIOTICS)] Allergy (Severe, Verified 11/03/23 14:55) ANAPHYLAXIS Gadolinium-Containing Contrast Medi [Gadolinium-Containing Agents] Allergy (Intermediate, Verified 11/03/23 14:55) Hives/Rash, dizziness, blue spots adhesive tape Adverse Reaction (Intermediate, Verified 11/03/23 14:55) Rash tramadol Adverse Reaction (Intermediate, Verified 11/03/23 14:55) Gastrointestinal Upset HPI Right Dx C4-C5-C6 MBB HPI Details Patient presents for scheduled procedure. Denies any recent cough, cold, infection, fever or other significant changes in medical history since last office visit. REPLACED BY [facility] Medical History (Updated 09/28/23 @ 13:22 by Capri Gordon RN) History of anesthesia complications Family history of anesthesia complication Type 2 diabetes mellitus Murmur COPD (chronic obstructive pulmonary disease) Lumbar post-laminectomy syndrome Degenerative cervical spinal stenosis Neuropathic pain COVID-19 Chest pain Post herpetic neuralgia Pleuritic chest pain Obesity (BMI 30-39.9) Asthma Pneumonia SONY (obstructive sleep apnea) [id number] syndrome Reactive airway disease On beta mitra at home History of pneumonia Vitamin D deficiency Left nephrolithiasis Dyslipidemia Diabetic polyneuropathy associated with type 2 diabetes mellitus Hypogonadism Failed back syndrome of lumbar spine Arthritis Back pain GERD (gastroesophageal reflux disease) History of fatty infiltration of liver History of ADHD Depression Elevated cholesterol HTN (hypertension) CAD (coronary artery disease) History of 2019 novel coronavirus disease (COVID-19) Cervical radiculopathy Nephrolithiasis Surgical History (Updated 05/24/23 @ 16:10 by Aurea Castañeda NP-C) S/P cardiac catheterization History of kidney surgery Gynecomastia History of elbow surgery Hx laparoscopic cholecystectomy History of carpal tunnel release Hx of shoulder surgery Hx of arthroscopic knee surgery History of esophagogastroduodenoscopy (EGD) H/O colonoscopy Hx of lumbar discectomy Hx of cardiac catheterization Family History Father Diabetes Hypertension Myocardial infarction Mother Diabetes Stroke Alzheimers disease Pacemaker Brother Diabetes Heart problem Myocardial infarction Sister Myocardial infarction Maternal Grandmother Myocardial infarction Social History Household Members: Spouse and Family Housing: Apartment Are you a primary healthcare recruiter to a significant other at home: No Do you presently have visiting nurse or other home services: No Alcohol intake: never Patient Tobacco Use Status: Never used Tobacco e-Cigarette/Vaping Use: Never Used Second Hand Smoke Exposure: No Advance Directives Date on File: 09/28/23 service: No Current occupational status: disabled Physical Exam Vital Signs: Last Vital Signs Pulse 66 11/03/23 14:53 Resp 18 11/03/23 14:53 BP 136/80 11/03/23 14:53 Pulse Ox 98 11/03/23 14:53 Oxygen Delivery Method Room Air 11/03/23 14:53 BMI result Body Mass Index 31.5 Office Procedures Cervical/Thoracic Facet Inj Details: Diagnostic Cervical Medial Branch Block, Right C3, C4, C5 medial branches After obtaining written consent, pre-procedure blood pressure and pulse were recorded and are in the nursing record for review. The patient was placed in a lateral position. The respective cervical area was prepped with chloraprep and draped in sterile fashion. The skin over the target medial branch nerves was anesthetized with 0.5% lidocaine. A 25 gauge 1.5 inch needle was inserted into the target medial branch nerve under fluoroscopic guidance. No paresthesias were elicited with needle placement and aspiration was negative for blood and CSF. No contrast was injected given history of contrast allergy. Next 0.5 ml 0.5% ropivicaine was injected (0.5 cc total per level). The identical procedure was performed at the remaining levels. The skin was cleansed and a sterile bandage was applied. Following the procedure the patient's vital signs were stable. The patient tolerated the procedure well and no complications were encountered. Following the procedure the patient's vital signs were stable. The patient was discharged home in good condition with post-procedural instructions. Time Out: Immediately prior to the procedure, the following was verbally confirmed that there is a signed consent form and that the correct patient, planned procedure, site and side are consistent with documentation and that necessary equipment and/or blood products are available prior to the start of the case. Complications: none EBL: <5 cc 18276 - second level, with Fluoroscopy Procedure code (CPT) selection complete Assessment & Plan Assessment & Plan (1) Cervical spondylosis: Code(s): M47.812 - Spondylosis without myelopathy or radiculopathy, cervical region Plan Patient is status post diagnostic right C3, C4, C5 medial branch blocks. Patient tolerated procedure well and was discharged home in stable condition with discharge instructions. All questions were answered. We will follow-up via telephone or in clinic to assess response to therapy. A follow-up appointment was made during today's visit. Orders: Orders FL guidance in treatment room Today M47.812 - Spondylosis without myelopathy or radiculopathy, cervical region Coding Level of Care Code Procedure Only Diagnoses Cervical spondylosis M47.812 CPT Codes Facet Injection Cervical/Thoracic - CPT: 56524 - second level, with Fluoroscopy ([id number])
[2023-11-03 14:52] VITALS: BP 132/74; PULSE 67; RESP 18; O2SAT 96; BMI 31.5
[2023-11-03 14:53] VITALS: BP 136/80; PULSE 66; RESP 18; O2SAT 98; BMI 31.5
== END 2023-11-03 14:40 | disposition home or self-care (01) ==
LOC: HO.PMCPRC 14:02
PROVIDERS: PCP Nurse Practitioner; Visit Provider Internal Medicine
DX: M47.812 Spondylosis without myelopathy or radiculopathy, cervical region (principal)
CPT/HCPCS: 64490; 64491

== ENCOUNTER 2023-11-09 07:58 | Outpatient (AMB) | payer OTHER, SELFPAY ==
[2023-11-09 08:09] VITALS: BP 158/80; PULSE 86; RESP 12; O2SAT 99; BMI 31.5
--- NOTE | 2023-11-09 08:09 | MHC.OFFVIS ---
Intake Vital Signs 11/09/23 08:09 Height 6 ft Weight 232 lb BMI 31.5 BP 158/80 H Blood Pressure Location Lt brachial Position Sitting Respiration 12 Pulse 86 Pulse Source Pulse Oximeter Pulse Oximetry (%) 99 Oxygen Delivery Method Room Air Intake Visit Reasons: s/p right C4-C5-C6 MBB/confirmed Allergies empagliflozin [From Jardiance] Allergy (Severe, Verified 11/09/23 08:11) Itching morphine [Morphine] Allergy (Severe, Verified 11/09/23 08:11) HIVES, THROAT CLOSES penicillin G [Penicillin G] Allergy (Severe, Verified 11/09/23 08:11) ANAPHYLAXIS Sulfa (Sulfonamide Antibiotics) [SULFA (SULFONAMIDE ANTIBIOTICS)] Allergy (Severe, Verified 11/09/23 08:11) ANAPHYLAXIS Gadolinium-Containing Contrast Medi [Gadolinium-Containing Agents] Allergy (Intermediate, Verified 11/09/23 08:11) Hives/Rash, dizziness, blue spots adhesive tape Adverse Reaction (Intermediate, Verified 11/09/23 08:11) Rash tramadol Adverse Reaction (Intermediate, Verified 11/09/23 08:11) Gastrointestinal Upset Medication List - Last Reconciled 11/09/23 by Fiordaliza Castrejon LPN albuterol sulfate 90 mcg/actuation (Ventolin HFA) 2 puffs inhalation QID PRN 30 days allopurinol 300 mg PO DAILY amlodipine 5 mg PO DAILY aspirin 81 mg PO DAILY azelastine 2 sprays intranasal BID 30 days blood sugar diagnostic (FreeStyle Lite Strips) 4 times a day blood-glucose meter (FreeStyle Lite Meter kit) As directed 4x/day blood-glucose meter,continuous (Dexcom G6 Industrial Seamstress) As directed blood-glucose sensor (Dexcom G6 Sensor device) As directed every 10 days blood-glucose transmitter (Dexcom G6 Transmitter device) As directed one every 3 months sinqcybvxu-plsgunld-xkaftftqal 160-9-4.8 mcg/actuation (Breztri Aerosphere) 2 inhalations inhalation BID 30 days carboxymethylcellulose sodium 0.5% (Refresh Tears) 1 drp ophthalmic (eye) BID cholecalciferol (vitamin D3) 50 mcg PO DAILY dulaglutide (Trulicity) 4.5 mg (0.5 mL) subcut QWEEK ezetimibe 10 mg PO DAILY flash glucose scanning reader (FreeStyle Eneida 2 [place]) As directed flash glucose sensor (FreeStyle Eneida 2 Sensor kit) As directed every 2 weeks fluoxetine 40 mg PO DAILY 90 days lancets (FreeStyle Lancets) 4 times a day lidocaine 5% (Lidoderm) 1 patch topical DAILY 30 days lisinopril 10 mg PO DAILY melatonin 5 mg PO BEDTIME PRN 30 days metformin ER 1,500 mg PO BID metoprolol tartrate 50 mg PO BID mometasone-formoterol 200-5 mcg/actuation (Dulera) 2 puffs inhalation Q12H 30 days omeprazole 40 mg PO BID pen needle, diabetic As directed potassium citrate ER 1,620 mEq PO BID pregabalin 150 mg PO BID rosuvastatin 40 mg PO DAILY sodium chloride-aloe vera ([place] Saline Gel nasal spray) 1 spray intranasal BID 30 days tamsulosin 0.4 mg PO DAILY HPI s/p right C4-C5-C6 MBB/confirmed HPI Details 58-year-old male who presents today to the office for a status post right C4-C5-C6 MBB. The patient reports 80?90% relief following the procedure for one day. His pain started coming back the third day after the procedure. His usual pain score is rated at 9/10 in intensity, which was improved to 0/10 in intensity for those two days. Past Procedures: 11/03/2023: Diagnostic Cervical Medial Branch Block, Right C3, C4, C5 medial branches: 80-90% relief for one day. 09/09/23: Left stellate ganglion block, ultrasound guided: Significant improvement in chest tightness symptoms [facility] Medical History (Updated 09/28/23 @ 13:22 by Capri Gordon RN) History of anesthesia complications Family history of anesthesia complication Type 2 diabetes mellitus Murmur COPD (chronic obstructive pulmonary disease) Lumbar post-laminectomy syndrome Degenerative cervical spinal stenosis Neuropathic pain COVID-19 Chest pain Post herpetic neuralgia Pleuritic chest pain Obesity (BMI 30-39.9) Asthma Pneumonia SONY (obstructive sleep apnea) [id number] syndrome Reactive airway disease On beta mitra at home History of pneumonia Vitamin D deficiency Left nephrolithiasis Dyslipidemia Diabetic polyneuropathy associated with type 2 diabetes mellitus Hypogonadism Failed back syndrome of lumbar spine Arthritis Back pain GERD (gastroesophageal reflux disease) History of fatty infiltration of liver History of ADHD Depression Elevated cholesterol HTN (hypertension) CAD (coronary artery disease) History of 2019 novel coronavirus disease (COVID-19) Cervical radiculopathy Nephrolithiasis Surgical History (Updated 05/24/23 @ 16:10 by Aurea Castañeda NP-C) S/P cardiac catheterization History of kidney surgery Gynecomastia History of elbow surgery Hx laparoscopic cholecystectomy History of carpal tunnel release Hx of shoulder surgery Hx of arthroscopic knee surgery History of esophagogastroduodenoscopy (EGD) H/O colonoscopy Hx of lumbar discectomy Hx of cardiac catheterization Family History Father Diabetes Hypertension Myocardial infarction Mother Diabetes Stroke Alzheimers disease Pacemaker Brother Diabetes Heart problem Myocardial infarction Sister Myocardial infarction Maternal Grandmother Myocardial infarction Social History Household Members: Spouse and Family Housing: Apartment Are you a primary director of career services to a significant other at home: No Do you presently have visiting nurse or other home services: No Alcohol intake: never Patient Tobacco Use Status: Never used Tobacco e-Cigarette/Vaping Use: Never Used Second Hand Smoke Exposure: No Advance Directives Date on File: 09/28/23 service: No Current occupational status: disabled Review of Systems Const All systems reviewed & are unremarkable except as noted in HPI and below Physical Exam Vital Signs: Last Vital Signs Pulse 86 11/09/23 08:09 Resp 12 11/09/23 08:09 BP 158/80 H 11/09/23 08:09 Pulse Ox 99 11/09/23 08:09 Oxygen Delivery Method Room Air 11/09/23 08:09 BMI result Body Mass Index 31.5 General: Appears afebrile. Alert and oriented. Mood and affect appropriate. Follows and participates in conversation appropriately. Respiratory effort is unlabored. Able to transition from sit to stand unassisted. Ambulates with bilaterally normal heel strike and toe off. Results Reviewed Results Reviewed: No imaging is available for review. Assessment & Plan Assessment & Plan (1) Cervical spondylosis: Code(s): M47.812 - Spondylosis without myelopathy or radiculopathy, cervical region Plan Discussed temporary nerve stimulators vs. RFA of the medial branches in the neck as a possible treatment option. The patient will think about it and let us know if he wants to proceed with the with a repeat cervical medial branch block fro anticipation of RFA or nerve stimulator trail. A nerve stimulator device and RFA procedure brochures were provided to the patient. Scribed for Dr. Saini by Hemant Toure, medical director occupational health, on 11/09/2023. I, Dr. Saini, have personally reviewed and agree with the information entered by the scribe. Coding Level of Care Code Est Pt Level 3 (90497) Diagnoses Cervical spondylosis M47.812
== END 2023-11-09 08:30 | disposition home or self-care (01) ==
PROVIDERS: PCP Nurse Practitioner; Visit Provider Internal Medicine
DX: M47.812 Spondylosis without myelopathy or radiculopathy, cervical region (principal)
CPT/HCPCS: 99213

== ENCOUNTER → 2023-11-09 07:58 | Outpatient (BNVA) | payer OTHER, SELFPAY | PROVIDERS: PCP Nurse Practitioner; Visit Provider Internal Medicine | DX: M47.812 Spondylosis without myelopathy or radiculopathy, cervical region (principal) | CPT/HCPCS: 99212 ==

== ENCOUNTER 2023-12-09 09:56 | Outpatient (AMB) | payer OTHER, SELFPAY ==
[2023-12-09 09:57] VITALS: BP 106/67; PULSE 81; O2SAT 97; BMI 32.1
--- NOTE | 2023-12-09 09:57 | A.OFFVIS_ITS ---
Intake Vital Signs 12/09/23 09:57 Height 6 ft Weight 236 lb 15.951 oz BMI 32.1 BP 106/67 Blood Pressure Location Lt brachial Position Sitting Pulse 81 Pulse Source Doppler Pulse Oximetry (%) 97 Oxygen Delivery Method Room Air Intake Visit Reasons: Lung Pain Allergies empagliflozin [From Jardiance] Allergy (Severe, Verified 12/09/23 10:01) Itching morphine [Morphine] Allergy (Severe, Verified 12/09/23 10:01) HIVES, THROAT CLOSES penicillin G [Penicillin G] Allergy (Severe, Verified 12/09/23 10:01) ANAPHYLAXIS Sulfa (Sulfonamide Antibiotics) [SULFA (SULFONAMIDE ANTIBIOTICS)] Allergy (Severe, Verified 12/09/23 10:01) ANAPHYLAXIS Gadolinium-Containing Contrast Medi [Gadolinium-Containing Agents] Allergy (Intermediate, Verified 12/09/23 10:01) Hives/Rash, dizziness, blue spots adhesive tape Adverse Reaction (Intermediate, Verified 12/09/23 10:01) Rash tramadol Adverse Reaction (Intermediate, Verified 12/09/23 10:01) Gastrointestinal Upset HPI HPI Comments History of Present Illness Details The patient is a 58-year-old gentleman with a history of obstructive sleep apnea who apparently developed COVID-19 little bit more than a year ago requiring ICU level of care. Subsequently after that his breathing has not been the same. He has had episodes of shortness of breath and has had to go to the ER multiple times because of worsening shortness of breath. He was provided with respiratory therapy including short-acting beta agonist. In addition to that he has been provided medications like prednisone. Subsequent please the patient was noted to have a recurrent pneumonia and a chest x-ray and treated with antibiotics. Does back in beginning of April. He did have a repeat chest x-ray that demonstrated resolution of the right-sided pneumonia. I did review all his imaging studies from the [facility] system. Initially when he was admitted with the COVID 19 he did not have a CT scan but did demonstrate that he had bilateral hazy opacities and decreased lung Expansion. Subsequently after that she did have the x-ray demonstrating the developing pneumonia in the right hemithorax. Still though he has never had a CT scan in view of his ongoing respiratory symptoms something that we will address the pending a how he response to this therapy in the meantime she has been struggling with CPAP. He had been on oxygen while he was in the hospital. . The CPAP was affecting beneficial before but does not appear to be helpful any longer. He is having some daytime drowsiness is within up tired. Machine appears to be broken as well. Therefore, he had a sleep study done because of his elevated [place] score of 14/24. The sleep study again demonstrates severe sleep apnea with an AHI greater than 40 significant hypoxia. Based on that will having undergo a CPAP BiPAP titration that the patient may need oxygen or may need a different type of PAP therapy. This is something we can arrange now in regards to his respiratory therapy the patient does have significant exhalation wheezing and coughing consistent likely a component of asthma and reactive airway disease that may have of all after developing a viral pneumonitis. Therefore will optimize respiratory therapy at this time. also to note the patient has not been vaccinated for COVID-19 because of concern of allergies that he has. I encouraged him to get vaccine as well as possible. But 1st I will check to see if he still has antibodies present. 11/15/2022 the patient is here for a pulm onary follow-up visit. Overall the patient is getting concerned because he has not gotten a new CPAP. Again he still waiting for his rest [place] replacement. In the meantime his current machine is not working effectively and he is to get a replacement. We did request a replacement machine back in June. I did call the [facility] again to see what the status is. I did provide him with an F20 medium mask that had in the office to make sure that he had adequate supplies in order to continue using his machine effectively. The therapy has been helpful for him. And he does uses CPAP for more than 4 hours a night. The patient still complains of that left-sided discomfort. Appears to be in a dermatomal distribution. We did review his last CT scan of the abdomen that she demonstrates lung cuts in that area and it is reassuring that he does not have any lung parenchymal changes even after having some significant COVID. It may be that he does have some degree of neuropathy in a dermatomal distribution. The patient will try the Lidoderm patches in that area. He is also no longer using the Lunesta. He can try some pyjh-zsd-klchxit melatonin to see if that can help him sleep. 02/18/2023 the patient is here for pulmon [place] follow-up visit. The patient overall has been doing well. He is currently waiting to get his service agreement from the new [facility] in order to start getting supplies. The patient also has been tolerating the new mask, F20 medium which seems to be working well for him. Patient overall feels better about that. His breathing still has some issues still complaining of chest pain now upon deep breathing consistent with his chronic pleuritic chest discomfort. He also has significant elbow pain now and shoulder discomfort that is been evaluated as well. For the last few days she has also had some wheezing although it does not appear to be that he is using his inhalers correctly. His is with him. She understands that he needs to take Dulera as prescribed which is twice a day and also should have the rescue inhaler available as needed. I will make sure to send the med ication to the pharmacy. He is not using the Spiriva or any other inhalers that he has been prescribed in the past. 06/20/2023 the patient is here for [facility] visit. He has had a very eventful summer. Continues to have significant left-sided chest discomfort which appears to be in a dermatomal distribution. The patient does have significant spinal stenosis. He was referred to pain management. The patient opted on not having any interventions. One recommendation was to have an MRI of the spine to further address his underlying pain and spinal stenosis history as well as disc disease. He continues to require pain management. We did review his CT scan of the abdomen that he had a [facility] back in March 2023. It appears to show little bit of the left lung base without any acute disease although minimal. Appears to have a small fluid collection on the right. This appears to be stable for the last few years. His last CT scan of the chest here at [place] was back in 2020 demonstrating no significant DU except for the again that right lower lobe fluid pleural base density. The patient will continue with that became patch and then also consider some Tylenol with codeine to provide some pain relief. In the meantime due to the significant history of spinal stenosis will go ahead and request an MRI to better address the issue and help him with his ongoing pain that he has had for years. Hears already perform physical therapy he has already taken in multiple medications without any significant relief. 08/29/2023 the patient is here for a pul [place] follow-up visit. He is still having issues with the back pain. Seems to be getting worse in addition to that radiates to the front of the chest. Moderate severity. Also been having little bit more shortness of breath has been using his Dulera and his rescue inhaler more often. We had scheduled for an MRI of the back but apparently he is allergic to contrast and therefore I referred him to Pain Management in order for them to evaluate the area. He has had had surgery in the past they may have to see neurosurgery or spine surgery for further management. Still should be evaluated by Pain Management 1st to see if he is a good candidate for any nonsurgical approaches. Patient has been using CPAP. He states that he has been bleeding from the nose anything noticing some bloody secretions within the tubing and the CPAP machine. The patient will try water-based lubricant or saline gel and he will try to increase the humidity of the CPAP machine. If he has any difficulties he will call the office. I will also call the [facility] to see if I can get access to adjust the machine from that website. In view of his worsening respiratory symptoms will go ahead and switch him from Dulera to breztri with the hope that he gets better bronchodilation affect. He does have surgery scheduled for the beginning of October for his rotator cuff injury. 12/09/2023 the patient is here for pulmona ry follow-up visit. Overall he has been doing fairly well from a respiratory status. The family did get COVID again but he was able to isolate himself and he did not end up getting sick which is reassuring. The patient knows that if he does get COVID he can always call the office we can get him antiviral medicine. In the meantime he continues uses CPAP at nighttime with good effect. He tries to use it more than 4 hours a night. The patient also has been still complaining of the back pain and neck pain in the reticular pain primarily affecting the left intercostal spaces. He did see pain management and they did recommend some interventions including a stimulator. He is going to contemplate those options and let the doctor no how he like to proceed. From a respiratory status he is tolerating the new inhaler. Appears to be working well for him. He has not required his rescue inhaler. [facility] Medical History (Updated 09/28/23 @ 13:22 by Capri Gordon RN) History of anesthesia complications Family history of anesthesia complication Type 2 diabetes mellitus Murmur COPD (chronic obstructive pulmonary disease) Lumbar post-laminectomy syndrome Degenerative cervical spinal stenosis Neuropathic pain COVID-19 Chest pain Post herpetic neuralgia Pleuritic chest pain Obesity (BMI 30-39.9) Asthma Pneumonia SONY (obstructive sleep apnea) [id number] syndrome Reactive airway disease On beta mitra at home History of pneumonia Vitamin D deficiency Left nephrolithiasis Dyslipidemia Diabetic polyneuropathy associated with type 2 diabetes mellitus Hypogonadism Failed back syndrome of lumbar spine Arthritis Back pain GERD (gastroesophageal reflux disease) History of fatty infiltration of liver History of ADHD Depression Elevated cholesterol HTN (hypertension) CAD (coronary artery disease) History of 2019 novel coronavirus disease (COVID-19) Cervical radiculopathy Nephrolithiasis Surgical History (Updated 05/24/23 @ 16:10 by Aurea Castañeda, ELECTRO MECHANICAL TECHNOLOGIST-C) S/P cardiac catheterization History of kidney surgery Gynecomastia History of elbow surgery Hx laparoscopic cholecystectomy History of carpal tunnel release Hx of shoulder surgery Hx of arthroscopic knee surgery History of esophagogastroduodenoscopy (EGD) H/O colonoscopy Hx of lumbar discectomy Hx of cardiac catheterization Family History Father Diabetes Hypertension Myocardial infarction Mother Diabetes Stroke Alzheimers disease Pacemaker Brother Diabetes Heart problem Myocardial infarction Sister Myocardial infarction Maternal Grandmother Myocardial infarction Social History Household Members: Spouse and Family Housing: Apartment Are you a primary primary care coordinator to a significant other at home: No Do you presently have visiting nurse or other home services: No Alcohol intake: never Patient Tobacco Use Status: Never used Tobacco e-Cigarette/Vaping Use: Never Used Second Hand Smoke Exposure: No Advance Directives Date on File: 09/28/23 service: No Current occupational status: disabled Review of Systems Const Denies fatigue, Denies weight gain and Reports weight loss Eyes Denies blurry vision ENT Denies epistaxis and Denies sore throat Card Reports chest pain, Denies palpitations and Denies dyspnea Resp Denies cough, Reports pain on inspiration and Denies dyspnea GI Denies constipation and Denies diarrhea Denies dysuria and Denies urinary frequency Musc Reports back pain, Reports arthralgias, Reports joint swelling, Reports limited range of motion, Denies muscle cramps, Denies muscle weakness, Reports numbness and Reports tingling Neuro Denies burning sensations, Reports numbness, Reports tingling and Denies paresthesias Psych Denies depression Endo Denies fatigue, Denies polydipsia, Denies polyuria and Denies palpitations [place]jas/Lymph Denies easy bruising Physical Exam Vital Signs: Last Vital Signs Pulse 81 12/09/23 09:57 BP 106/67 12/09/23 09:57 Pulse Ox 97 12/09/23 09:57 Oxygen Delivery Method Room Air 12/09/23 09:57 BMI result Body Mass Index 32.1 Const General: no acute distress and alert HEENT Head: Yes normocephalic and Yes atraumatic Eyes Sclerae: sclerae normal EOM: EOMs intact bilaterally Neck Neck: Yes no lymphadenopathy, Yes trachea midline and Yes no JVD Thyroid: Thyroid normal Chest Chest palpation & inspection: normal inspection of the chest Resp Effort & Inspection: normal respiratory effort Auscultation: diminished lung sounds Cardio Rate: regular rate Rhythm: regular rhythm Heart sounds: S1 normal heart sound present and S2 normal heart sound present Peripheral pulses: Peripheral pulses 2+ throughout GI Inspection: Yes normal to inspection and No distended Auscultation: normal bowel sounds Skin Other: No acanthosis nigricans or diabetic dermopathy Neuro Sensory Exam: Trunk sensory exam abnormal (tenderness skin palpation superficial pain dermatomal distributibution) Deep tendon reflexes (DTR's): Rt Biceps (C5, C6): 2+, Left biceps reflex in tensity grade: 2+, Right patellar reflex intensity grade: 2+ and Left patellar reflex intensity grade: 2+ Extrem Other: Foot inspection: No lesions, ulcers. + oncymychosis General: Yes normal gait, No clubbing, No cyanosis and No edema Psych Affect: normal affect Attitude: cooperative Assessment & Plan Assessment & Plan (1) SONY (obstructive sleep apnea): Code(s): G47.33 - Obstructive sleep apnea (adult) (pediatric) (2) [id number] syndrome: Code(s): B94.8 - Sequelae of other specified infectious and parasitic diseases (3) Reactive airway disease: Code(s): J45.909 - Unspecified asthma, uncomplicated Qualifiers: Asthma complication type: uncomplicated Asthma persistence: persistent Asthma severity: moderate Qualified Code(s): J45.40 - Moderate persistent asthma, uncomplicated (4) Asthma: Code(s): J45.909 - Unspecified asthma, uncomplicated Qualifiers: Asthma complication type: uncomplicated Asthma persistence: persistent Asthma severity: moderate Qualified Code(s): J45.40 - Moderate persistent asthma, uncomplicated (5) Radicular pain: Code(s): M54.10 - Radiculopathy, site unspecified (6) Chest discomfort: Code(s): R07.89 - Other chest pain (7) Lumbar post-laminectomy syndrome: Code(s): M96.1 - Postlaminectomy syndrome, not elsewhere classified (8) Radiculopathy due to lumbar intervertebral disc disorder: Code(s): M51.16 - Intervertebral disc disorders with radiculopathy, lumbar region Plan continue Breztri BID short-acting beta agonist as needed nebulizer that he can use as needed lidoderm patch to the left sided neuropathy continue APAP therapy, medium F20 mask, Tylenol#3 as needed for pain F/U 6 months Coding Level of Care Code Est Pt Level 4 (51087) Diagnoses SONY (obstructive sleep apnea) G47.33 [id number] syndrome B94.8 Moderate persistent reactive airway disease without complication J45.40 Asthma complication type: uncomplicated Asthma persistence: persistent Asthma severity: moderate Moderate persistent asthma without complication J45.40 Asthma complication type: uncomplicated Asthma persistence: persistent Asthma severity: moderate Radicular pain M54.10 Chest discomfort R07.89 Lumbar post-laminectomy syndrome M96.1 Radiculopathy due to lumbar intervertebral disc disorder M51.16 Time Spent (min) 17
== END 2023-12-09 10:33 | disposition home or self-care (01) ==
PROVIDERS: PCP Nurse Practitioner; Visit Provider Hospitalist
DX: G47.33 Obstructive sleep apnea (adult) (pediatric) (principal); J45.40 Moderate persistent asthma, uncomplicated; B94.8 Sequelae of other specified infectious and parasitic diseases; R07.89 Other chest pain; M96.1 Postlaminectomy syndrome, not elsewhere classified; M51.16 Intervertebral disc disorders with radiculopathy, lumbar region
CPT/HCPCS: 99214

== ENCOUNTER → 2023-12-09 09:56 | Outpatient (BNVA) | payer OTHER, SELFPAY | PROVIDERS: PCP Nurse Practitioner; Visit Provider Hospitalist | DX: G47.33 Obstructive sleep apnea (adult) (pediatric) (principal); J45.40 Moderate persistent asthma, uncomplicated; M54.10 Radiculopathy, site unspecified; M96.1 Postlaminectomy syndrome, not elsewhere classified; M51.16 Intervertebral disc disorders with radiculopathy, lumbar region; B94.8 Sequelae of other specified infectious and parasitic diseases; R07.89 Other chest pain | CPT/HCPCS: 99212 ==

== ENCOUNTER 2024-01-06 09:48 | Outpatient (REF) | payer OTHER, SELFPAY ==
[2024-01-06 09:42] VITALS: PULSE 86; RESP 16; O2SAT 98
--- NOTE | 2024-01-06 15:53 | PFT_ITS ---
Indication: Asthma Spirometry [FEV1 to FVC 86%; FEV1 3.61 L; FVC 4.21 L. No significant response to bronchodilators noted. Maximum voluntary ventilation 73% predicted Lung Volumes [Total lung capacity 79% predicted] Diffusion Capacity [DLCO 85% predicted] Comparisons [None] Interpretation [Mild obstructive ventilatory defects appreciated. No significant response to bronchodilators noted. Mild decrease in the maximum voluntary ventilation secondary to deconditioning. There is some very mild restrictive ventilatory defect. Diffusing capacity within normal limits clinical correlation warranted. MTDD
== END 2024-01-06 09:49 | disposition home or self-care (01) ==
LOC: HO.RESP 09:48
PROVIDERS: PCP Internal Medicine; Visit Provider Hospitalist
DX: R06.00 Dyspnea, unspecified (principal)
CPT/HCPCS: 94010; 94640; 94727; 94729

== ENCOUNTER → 2024-01-06 15:53 | Outpatient (BNV) | payer OTHER, SELFPAY | PROVIDERS: PCP Internal Medicine; Visit Provider Hospitalist | DX: R06.00 Dyspnea, unspecified (principal) | CPT/HCPCS: 94060; 94727; 94729 ==

== ENCOUNTER 2024-02-17 09:30 | Outpatient (REF) | payer OTHER, SELFPAY ==
--- NOTE | ~2024-02-17 | XR_ITS ---
EXAMINATION: XR CHEST CLINICAL INFORMATION: Chest pain unspecified COMPARISON: 05/23/2021 TECHNIQUE: 2 views of the chest were obtained. FINDINGS: There is no gross pneumothorax. Heart size is normal. Mild dextroscoliosis of the thoracic spine with multilevel degenerative changes. No pleural effusion. No new focal consolidation to suggest pneumonia. XR/XR chest 2V IMPRESSION: No evidence of pneumonia.
[2024-02-17 10:26] LABS: MANUAL DIFF FLAG NO
[2024-02-17 11:02] LABS: Basophils Percent Auto 0.3 % (0-2); Eosinophils Absolute Auto 0.4 X10*3/uL (0.0-0.4); Eosinophils Percent Auto 6.8 % (0-4); Hematocrit 43.2 % (42.0-52.0); Hemoglobin 14.1 g/dl (14.0-18.0); Imm Gran Abs Auto 0.04 X10*3/uL (0.00-0.03); Imm Gran Pct Auto 0.6 % (0.0-0.4); Lymphocytes Absolute Auto 1.6 X10*3/uL (1.2-4.9); Lymphocytes Percent Auto 26.5 % (20-40); Mean Corpuscular HGB Conc 32.6 g/dl (31.0-36.0); Mean Corpuscular Hemoglobin 26.8 pg (27.0-33.0); Mean Corpuscular Volume 82.1 fL (80.0-98.0); Mean Platelet Volume 9.7 fL (9.4-12.4); Monocytes Absolute Auto 0.4 X10*3/uL (0.1-1.2); Neutrophils Absolute Auto 3.6 x10*3/uL (2.0-8.3); Neutrophils Percent Auto 58.8 % (45-73); Platelet Count 233 X10*3/uL (160-400); Red Blood Count 5.26 X10*6/uL (4.60-5.80); Red Cell Distribution Width 14.9 % (11.0-16.0); White Blood Count 6.2 X10*3/uL (4.8-10.8)
[2024-02-17 11:41] LABS: Anion Gap 12 (12-20); Blood Urea Nitrogen 11 mg/dL (9-16); Calcium 9.3 mg/dL (8.4-10.2); Carbon Dioxide 24 mmol/L (22-29); Chloride 106 mmol/L (96-108); Estimated Glomerular Filt Rate > 60; Glucose Random 129 mg/dL (60-115); Potassium 3.9 mmol/L (3.3-5.1); Sodium 138 mmol/L (135-145)
[2024-02-17 11:42] LABS: Erythrocyte Sedimentation Rate 3 MM/HR (0-15)
[2024-02-21 14:28] LABS: IgA 254 mg/dL (47-310); IgG 1288 mg/dL (600-1640); IgM 37 mg/dL (50-300)
[2024-02-27 12:09] LABS: Class Alternaria alternata 0; Class Aspergillus fumigatus 0; Class Bermuda Grass 0; Class Birch 0; Class Cat Dander 0; Class Cladosporium herbarum 0; Class Cockroach 0; Class Common Ragweed 0; Class Cottonwood 0; Class Derm. pterony 0; Class Dermatophagoides farinae 0; Class Dog Dander 0; Class Elm 0; Class Maple Box Elder 0; Class Mountain Cedar 0; Class Mouse Urine Protein 0; Class Mugwort 0; Class Oak 0; Class Penicillium crysogenum 0; Class Rough Pigweed 0; Class Sheep Sorrel 0; Class Sycamore 0; Class Timothy Grass 0; Class Walnut Tree 0; Class White Ash 0; Class White Mulberry 0; D001 IgE D pteronyssinus <0.10 kU/L; D002 - IgE D farinae <0.10 kU/L; E001 - IgE Cat Dander <0.10 kU/L; E005 - IgE Dog Dander <0.10 kU/L; E072-IgE Mouse Urine <0.10 kU/L; G002 IgE Bermuda Grass <0.10 kU/L; G006 - IgE Timothy Grass <0.10 kU/L; I006-IgE Cockroach, German <0.10 kU/L; Immunoglobulin E 42 kU/L (<OR=114); M001 IgE Penicillium chrysogen <0.10 kU/L; M002 - IgE Cladosporium herbar <0.10 kU/L; M003 - IgE Aspergillus fumigat <0.10 kU/L; M006 - IgE Alternaria alternat <0.10 kU/L; T001 IgE Maple/Box Elder <0.10 kU/L; T003 IgE Common Silver Birch <0.10 kU/L; T006 - IgE Cedar, Mountain <0.10 kU/L; T007 - IgE Oak, White <0.10 kU/L; T008 IgE Elm, American <0.10 kU/L; T010 - IgE Walnut <0.10 kU/L; T011 - IgE Maple Leaf Sycamore <0.10 kU/L; T014 - IgE Cottonwood <0.10 kU/L; T015 - IgE Ash, White <0.10 kU/L; T070 - IgE White Mulberry <0.10 kU/L; W001 - IgE Ragweed, Short <0.10 kU/L; W006 - IgE Mugwort <0.10 kU/L; W014 IgE Pigweed, Common <0.10 kU/L; W018 IgE Sheep Sorrel <0.10 kU/L
== END 2024-02-17 09:31 | disposition home or self-care (01) ==
LOC: HO.XRAY 09:30
PROVIDERS: PCP Nurse Practitioner Primary Care; Visit Provider Hospitalist
DX: J45.40 Moderate persistent asthma, uncomplicated (principal); R91.1 Solitary pulmonary nodule; T78.40XA Allergy, unspecified, initial encounter; G47.33 Obstructive sleep apnea (adult) (pediatric); B94.8 Sequelae of other specified infectious and parasitic diseases; R07.89 Other chest pain; M96.1 Postlaminectomy syndrome, not elsewhere classified; M51.16 Intervertebral disc disorders with radiculopathy, lumbar region; K21.9 Gastro-esophageal reflux disease without esophagitis; B02.29 Other postherpetic nervous system involvement
CPT/HCPCS: 36415; 71046; 80048; 82784; 82785; 85025; 85652; 86003; 99212

== ENCOUNTER 2024-02-17 09:30 | Outpatient (AMB) | payer OTHER, SELFPAY ==
--- NOTE | 2024-02-17 09:36 | A.OFFVIS_ITS ---
Vital Signs 02/17/24 09:37 Height 6 ft Weight 232 lb BMI 31.5 Pulse 88 Pulse Source Pulse Oximeter Pulse Oximetry (%) 98 Oxygen Delivery Method Room Air Intake Visit Reasons: Lung Pain [facility] Required: No Allergies empagliflozin [From Jardiance] Allergy (Severe, Verified 02/17/24 09:38) Itching morphine [Morphine] Allergy (Severe, Verified 02/17/24 09:38) HIVES, THROAT CLOSES penicillin G [Penicillin G] Allergy (Severe, Verified 02/17/24 09:38) ANAPHYLAXIS Sulfa (Sulfonamide Antibiotics) [SULFA (SULFONAMIDE ANTIBIOTICS)] Allergy (Severe, Verified 02/17/24 09:38) ANAPHYLAXIS Gadolinium-Containing Contrast Medi [Gadolinium-Containing Agents] Allergy (Intermediate, Verified 02/17/24 09:38) Hives/Rash, dizziness, blue spots adhesive tape Adverse Reaction (Intermediate, Verified 02/17/24 09:38) Rash tramadol Adverse Reaction (Intermediate, Verified 02/17/24 09:38) Gastrointestinal Upset HPI Comments Details: The patient is a 58-year-old gentleman with a history of obstructive sleep apnea who apparently developed COVID-19 little bit more than a year ago requiring ICU level of care. Subsequently after that his breathing has not been the same. He has had episodes of shortness of breath and has had to go to the ER multiple times because of worsening shortness of breath. He was provided with respiratory therapy including short-acting beta agonist. In addition to that he has been provided medications like prednisone. Subsequent please the patient was noted to have a recurrent pneumonia and a chest x-ray and treated with antibiotics. Does back in beginning of April. He did have a repeat chest x-ray that demonstrated resolution of the right-sided pneumonia. I did review all his imaging studies from the [facility] system. Initially when he was admitted with the COVID 19 he did not have a CT scan but did demonstrate that he had bilateral hazy opacities and decreased lung Expansion. Subsequently after that she did have the x-ray demonstrating the developing pneumonia in the right hemithorax. Still though he has never had a CT scan in view of his ongoing respiratory symptoms something that we will address the pending a how he response to this therapy in the meantime she has been struggling with CPAP. He had been on oxygen while he was in the hospital. . The CPAP was affecting beneficial before but does not appear to be helpful any longer. He is having some daytime drowsiness is within up tired. Machine appears to be broken as well. Therefore, he had a sleep study done because of his elevated [place] score of 14/24. The sleep study again demonstrates severe sleep apnea with an AHI greater than 40 significant hypoxia. Based on that will having undergo a CPAP BiPAP titration that the patient may need oxygen or may need a different type of PAP therapy. This is something we can arrange now in regards to his respiratory therapy the patient does have significant exhalation wheezing and coughing consistent likely a component of asthma and reactive airway disease that may have of all after developing a viral pneumonitis. Therefore will optimize respiratory therapy at this time. also to note the patient has not been va ccinated for COVID-19 because of concern of allergies that he has. I encouraged him to get vaccine as well as possible. But 1st I will check to see if he still has antibodies present. 06/20/2023 the patient is here for hospital follow-up visit. He has had a very eventful summer. Continues to have significant left-sided chest discomfort which appears to be in a dermatomal distribution. The patient does have significant spinal stenosis. He was referred to pain management. The patient opted on not having any interventions. One recommendation was to have an MRI of the spine to further address his underlying pain and spinal stenosis history as well as disc disease. He continues to require pain management. We did review his CT scan of the abdomen that he had a [place] back in March 2023. It appears to show little bit of the left lung base without any acute disease although minimal. Appears to have a small fluid collection on the right. This appears to be stable for the last few years. His last CT scan of the chest here at [facility] was back in 2020 demonstrating no significant DU except for the again that right lower lobe fluid pleural base density. The patient will continue with that became patch and then also consider some Tylenol with codeine to provide some pain relief. In the meantime due to the significant history of spinal stenosis will go ahead and request an MRI to better address the issue and help him with his ongoing pain that he has had for years. Hears already perform physical therapy he has already taken in multiple medications without any significant relief. 08/29/2023 the patient is here for a pulmonary follow-up visit. He is still having issues with the back pain. Seems to be getting worse in addition to that radiates to the front of the chest. Moderate severity. Also been having little bit more shortness of breath has been using his Dulera and his rescue inhaler more often. We had scheduled for an MRI of the back but apparently he is allergic to contrast and therefore I referred him to Pain Management in order for them to evaluate the area. He has had had surgery in the past they may have to see neurosurgery or spine surgery for further management. Still should be evaluated by Pain Management 1st to see if he is a good candidate for any nonsurgical approaches. Patient has been using CPAP. He states that he has been bleeding from the nose anything noticing some bloody secretions within the tubing and the CPAP machine. The patient will try water-based lubricant or saline gel and he will try to increase the humidity of the CPAP machine. If he has any difficulties he will call the office. I will also call the [employer] to see if I can get access to adjust the machine from that website. In view of his worsening respiratory symptoms will go ahead and switch him from Dulera to breztri with the hope that he gets better bronchodilation affect. He does have surgery scheduled for the beginning of October for his rotator cuff injury. 12/09/2023 the patient is here for pulmonary follow-up visit. Overall he has been doing fairly well from a respiratory status. The family did get COVID again but he was able to isolate himself and he did not end up getting sick which is reassuring. The patient knows that if he does get COVID he can always call the office we can get him antiviral medicine. In the meantime he continues uses CPAP at nighttime with good effect. He tries to use it more than 4 hours a night. The patient also has been still complaining of the back pain and neck pain in the reticular pain primarily affecting the left intercostal spaces. He did see pain management and they did recommend some interventions including a stimulator. He is going to contemplate those options and let the doctor no how he like to proceed. From a respiratory status he is tolerating the new inhaler. Appears to be working well for him. He has not required his rescue inhaler. 02/17/2024 the patient is here for a pulmonary follow-up visit. Overall he is doing fair. He is now complaining of right-sided chest discomfort. Pleuritic nature. Worse when coughing. He has been waking up coughing and some chest tightness at nighttime. He is having to use his rescue inhaler which she has been helpful. He does continue to use his respiratory medicine with good effect. He did have pulmonary function studies which I personally reviewed. He has mild restriction. Otherwise good. The patient has been using the CPAP. The CPAP therapy continues to be affecting beneficial. He does use it for more than 4 hours a night. He is still dealing with his back pain in his chest discomfort secondary to the radiculopathy. He has consider a pain stimulator. He has not sure as it yet. He is also dealing with shoulder issues. Does have a congested cough. Likely has a component of bronchitis. He has low IgM level suggesting some degree of immunodeficiency. Will try him on azithromycin 3 times a week. The patient will also undergo a chest x-ray and blood work. If he has any worsening symptoms he will call for an earlier assessment. [facility] Medical History (Updated 02/17/24 @ 09:50 by Renato Saba MD) Allergies History of anesthesia complications Family history of anesthesia complication Type 2 diabetes mellitus Murmur COPD (chronic obstructive pulmonary disease) Lumbar post-laminectomy syndrome Degenerative cervical spinal stenosis Neuropathic pain COVID-19 Chest pain Post herpetic neuralgia Pleuritic chest pain Obesity (BMI 30-39.9) Asthma Pneumonia SONY (obstructive sleep apnea) [id number] syndrome Reactive airway disease On beta mitra at home History of pneumonia Vitamin D deficiency Left nephrolithiasis Dyslipidemia Diabetic polyneuropathy associated with type 2 diabetes mellitus Hypogonadism Failed back syndrome of lumbar spine Arthritis Back pain GERD (gastroesophageal reflux disease) History of fatty infiltration of liver History of ADHD Depression Elevated cholesterol HTN (hypertension) CAD (coronary artery disease) History of 2019 novel coronavirus disease (COVID-19) Cervical radiculopathy Nephrolithiasis Surgical History (Updated 05/24/23 @ 16:10 by Aurea Castañeda, [employer]) S/P cardiac catheterization History of kidney surgery Gynecomastia History of elbow surgery Hx laparoscopic cholecystectomy History of carpal tunnel release Hx of shoulder surgery Hx of arthroscopic knee surgery History of esophagogastroduodenoscopy (EGD) H/O colonoscopy Hx of lumbar discectomy Hx of cardiac catheterization Family History Father Diabetes Hypertension Myocardial infarction Mother Diabetes Stroke Alzheimers disease Pacemaker Brother Diabetes Heart problem Myocardial infarction Sister Myocardial infarction Maternal Grandmother Myocardial infarction Social History Household Members: Spouse and Family Housing: Apartment Are you a primary after school caregiver to a significant other at home: No Do you presently have visiting nurse or other home services: No Alcohol intake: never Patient Tobacco Use Status: Never used Tobacco e-Cigarette/Vaping Use: Never Used Second Hand Smoke Exposure: No Advance Directives Date on File: 09/28/23 service: No Current occupational status: disabled Review of Systems Const Denies fatigue, Denies weight gain and Reports weight loss Eyes Denies blurry vision ENT Denies epistaxis and Denies sore throat Card Reports chest pain, Denies palpitations and Denies dyspnea Resp Reports chest congestion, Reports cough, Reports pain on inspiration and Denies dyspnea GI Denies constipation and Denies diarrhea Denies dysuria and Denies urinary frequency Musc Reports back pain, Reports arthralgias, Reports joint swelling, Reports limited range of motion, Denies muscle cramps, Denies muscle weakness, Reports numbness and Reports tingling Neuro Denies burning sensations, Reports numbness, Reports tingling and Denies paresthesias Psych Denies depression Endo Denies fatigue, Denies polydipsia, Denies polyuria and Denies palpitations Tejas/Lymph Denies easy bruising Physical Exam Vital Signs: Last Vital Signs Pulse 88 02/17/24 09:37 Pulse Ox 98 02/17/24 09:37 Oxygen Delivery Method Room Air 02/17/24 09:37 BMI result Body Mass Index 31.5 Const General: no acute distress and alert HEENT Head: Yes normocephalic and Yes atraumatic Eyes Sclerae: sclerae normal EOM: EOMs intact bilaterally Neck Neck: Yes no lymphadenopathy, Yes trachea midline and Yes no JVD Thyroid: Thyroid normal Chest Chest palpation & inspection: normal inspection of the chest Resp Effort & Inspection: normal respiratory effort Auscultation: diminished lung sounds Cardio Rate: regular rate Rhythm: regular rhythm Heart sounds: S1 normal heart sound present and S2 normal heart sound present Peripheral pulses: Peripheral pulses 2+ throughout GI Inspection: Yes normal to inspection and No distended Auscultation: normal bowel sounds Skin Other: No acanthosis nigricans or diabetic dermopathy Neuro Sensory Exam: Trunk sensory exam abnormal (tenderness skin palpation superficial pain dermatomal distributibution) Deep tendon reflexes (DTR's): Rt Biceps (C5, C6): 2+, Left biceps reflex intensity grade: 2+, Right patellar reflex intensity grade: 2+ and Left patellar reflex intensity grade: 2+ Extrem Other: Foot inspection: No lesions, ulcers. + oncymychosis General: Yes normal gait, No clubbing, No cyanosis and No edema Psych Affect: normal affect Attitude: cooperative Assessment & Plan Assessment & Plan (1) SONY (obstructive sleep apnea): Code(s): G47.33 - Obstructive sleep apnea (adult) (pediatric) Category: Medical (2) [id number] syndrome: Code(s): B94.8 - Sequelae of other specified infectious and parasitic diseases Category: Medical (3) Reactive airway disease: Code(s): J45.909 - Unspecified asthma, uncomplicated Category: Medical Qualifiers: Asthma complication type: uncomplicated Asthma persistence: persistent Asthma severity: moderate Qualified Code(s): J45.40 - Moderate persistent asthma, uncomplicated (4) Asthma: Code(s): J45.909 - Unspecified asthma, uncomplicated Category: Medical Qualifiers: Asthma complication type: uncomplicated Asthma persistence: persistent Asthma severity: moderate Qualified Code(s): J45.40 - Moderate persistent asthma, uncomplicated (5) Radicular pain: Code(s): M54.10 - Radiculopathy, site unspecified Category: Medical (6) Chest discomfort: Code(s): R07.89 - Other chest pain Category: Medical (7) Lumbar post-laminectomy syndrome: Code(s): M96.1 - Postlaminectomy syndrome, not elsewhere classified Category: Medical (8) Radiculopathy due to lumbar intervertebral disc disorder: Code(s): M51.16 - Intervertebral disc disorders with radiculopathy, lumbar region Category: Medical Plan continue Breztri BID short-acting beta agonist as needed nebulizer that he can use as needed lidoderm patch to the left sided neuropathy continue APAP therapy, medium F30i mask, start Azithromycin MWF Bloodwork CXR F/U 3-4 months Orders: Orders Immunoglobulins,IgG IgA IgM 02/17/24 J45.40 - Moderate persistent asthma, uncomplicated, R07.9 - Chest pain, unspecified, T78.40XA - Allergy, unspecified, initial encounter Complete Blood Count Auto Diff 02/17/24 J45.40 - Moderate persistent asthma, uncomplicated, R07.9 - Chest pain, unspecified, T78.40XA - Allergy, unspecified, initial encounter Basic Metabolic Panel 02/17/24 J45.40 - Moderate persistent asthma, uncomplicated, R07.9 - Chest pain, unspecified, T78.40XA - Allergy, unspecified, initial encounter Erythrocyte Sedimentation Rate 02/17/24 J45.40 - Moderate persistent asthma, uncomplicated, R07.9 - Chest pain, unspecified, T78.40XA - Allergy, unspecified, initial encounter XR chest 2V 02/17/24 R07.9 - Chest pain, unspecified Resp Allergy Profile Region I 02/17/24 J45.40 - Moderate persistent asthma, uncomplicated, R07.9 - Chest pain, unspecified, R91.1 - Solitary pulmonary nodule, T78.40XA - Allergy, unspecified, initial encounter Immunoglobulin E 02/17/24 J45.40 - Moderate persistent asthma, uncomplicated, R07.9 - Chest pain, unspecified, T78.40XA - Allergy, unspecified, initial encounter Medications: New azithromycin Take 1 tablet on Tuesday/Tuesday/Tuesday 250 mg PO 3XW 12 tabs 2RF 28 days K21.9 - Gastro-esophageal reflux disease without esophagitis Refilled lidocaine 5% (Lidoderm) leave on most painful area for up to 12 hrs 1 patch topical DAILY 30 ea 4RF 30 days B02.29 - Other postherpetic nervous system involvement Coding Level of Care Code Est Pt Level 4 (78572) Diagnoses SONY (obstructive sleep apnea) G47.33 [id number] syndrome B94.8 Moderate persistent reactive airway disease without complication J45.40 Asthma complication type: uncomplicated Asthma persistence: persistent Asthma severity: moderate Moderate persistent asthma without complication J45.40 Asthma complication type: uncomplicated Asthma persistence: persistent Asthma severity: moderate Radicular pain M54.10 Chest discomfort R07.89 Lumbar post-laminectomy syndrome M96.1 Radiculopathy due to lumbar intervertebral disc disorder M51.16 Time Spent (min) 17
[2024-02-17 09:37] VITALS: PULSE 88; O2SAT 98; BMI 31.5
== END 2024-02-17 10:02 | disposition home or self-care (01) ==
PROVIDERS: PCP Nurse Practitioner; Visit Provider Hospitalist
DX: G47.33 Obstructive sleep apnea (adult) (pediatric) (principal); B94.8 Sequelae of other specified infectious and parasitic diseases; J45.40 Moderate persistent asthma, uncomplicated; M54.10 Radiculopathy, site unspecified; R07.89 Other chest pain; M96.1 Postlaminectomy syndrome, not elsewhere classified; M51.16 Intervertebral disc disorders with radiculopathy, lumbar region
CPT/HCPCS: 99214

== ENCOUNTER 2024-04-13 10:17 | Outpatient (AMB) | payer OTHER, SELFPAY ==
[2024-04-13 10:44] VITALS: PULSE 63; O2SAT 98; BMI 32.4
--- NOTE | 2024-04-13 10:44 | A.OFFVIS_ITS ---
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 Allergies empagliflozin [From Jardiance] Allergy (Severe, Verified 04/13/24 10:47) Itching morphine [Morphine] Allergy (Severe, Verified 04/13/24 10:47) HIVES, THROAT CLOSES penicillin G [Penicillin G] Allergy (Severe, Verified 04/13/24 10:47) ANAPHYLAXIS Sulfa (Sulfonamide Antibiotics) [SULFA (SULFONAMIDE ANTIBIOTICS)] Allergy (Severe, Verified 04/13/24 10:47) ANAPHYLAXIS Gadolinium-Containing Contrast Medi [Gadolinium-Containing Agents] Allergy (Intermediate, Verified 04/13/24 10:47) Hives/Rash, dizziness, blue spots adhesive tape Adverse Reaction (Intermediate, Verified 04/13/24 10:47) Rash tramadol Adverse Reaction (Intermediate, Verified 04/13/24 10:47) Gastrointestinal Upset HPI Comments Details: The patient is a 59-year-old gentleman with a history of obstructive sleep apnea who apparently developed COVID-19 little bit more than a year ago requiring ICU level of care. Subsequently after that his breathing has not been the same. He has had episodes of shortness of breath and has had to go to the ER multiple times because of worsening shortness of breath. He was provided with respiratory therapy including short-acting beta agonist. In addition to that he has been provided medications like prednisone. Subsequent please the patient was noted to have a recurrent pneumonia and a chest x-ray and treated with antibiotics. Does back in beginning of April. He did have a repeat chest x-ray that demonstrated resolution of the right-sided pneumonia. I did review all his imaging studies from the [facility] system. Initially when he was admitted with the COVID 19 he did not have a CT scan but did demonstrate that he had bilateral hazy opacities and decreased lung Expansion. Subsequently after that she did have the x-ray demonstrating the developing pneumonia in the right hemithorax. Still though he has never had a CT scan in view of his ongoing respiratory symptoms something that we will address the pending a how he response to this therapy in the meantime she has been struggling with CPAP. He had been on oxygen while he was in the hospital. . The CPAP was affecting beneficial before but does not appear to be helpful any longer. He is having some daytime drowsiness is within up tired. Machine appears to be broken as well. Therefore, he had a sleep study done because of his elevated Tipton score of 14/24. The sleep study again demonstrates severe sleep apnea with an AHI greater than 40 significant hypoxia. Based on that will having undergo a CPAP BiPAP titration that the patient may need oxygen or may need a different type of PAP therapy. This is something we can arrange now in regards to his respiratory therapy the patient does have significant exhalation wheezing and coughing consistent likely a component of asthma and reactive airway disease that may have of all after developing a viral pneumonitis. Therefore will optimize respiratory therapy at this time. also to note the patient has not been vaccinated for COVID-19 because of concern of allergies that he has. I encouraged him to get vaccine as well as possible. But 1st I will check to see if he still has antibodies present. 06/20/2023 the patient is here for hospital follow-up visit. He has had a very eventful summer. Continues to have significant left-sided chest discomfort which appears to be in a dermatomal distribution. The patient does have significant spinal stenosis. He was referred to pain management. The patient opted on not having any interventions. One recommendation was to have an MRI of the spine to further address his underlying pain and spinal stenosis history as well as disc disease. He continues to require pain management. We did review his CT scan of the abdomen that he had a [facility] back in March 2023. It appears to show little bit of the left lung base without any acute disease although minimal. Appears to have a small fluid collection on the right. This appears to be stable for the last few years. His last CT scan of the chest here at [place] was back in 2020 demonstrating no significant DU except for the again that right lower lobe fluid pleural base density. The patient will continue with that became patch and then also consider some Tylenol with codeine to provide some pain relief. In the meantime due to the significant history of spinal stenosis will go ahead and request an MRI to better address the issue and help him with his ongoing pain that he has had for years. Hears already perform physical therapy he has already taken in multiple medications without any s ignificant relief. 08/29/2023 the patient is here for a pulmonary follow-up visit. He is still having issues with the back pain. Seems to be getting worse in addition to that radiates to the front of the chest. Moderate severity. Also been having little bit more shortness of breath has been using his Dulera and his rescue inhaler more often. We had scheduled for an MRI of the back but apparently he is allergic to contrast and therefore I referred him to Pain Management in order for them to evaluate the area. He has had had surgery in the past they may have to see neurosurgery or spine surgery for further management. Still should be evaluated by Pain Management 1st to see if he is a good candidate for any nonsurgical approaches. Patient has been using CPAP. He states that he has b een bleeding from the nose anything noticing some bloody secretions within the tubing and the CPAP machine. The patient will try water-based lubricant or saline gel and he will try to increase the humidity of the CPAP machine. If he has any difficulties he will call the office. I will also call the [employer] to see if I can get access to adjust the machine from that website. In view of his worsening respiratory symptoms will go ahead and switch him from Dulera to breztri with the hope that he gets better bronchodilation affect. He does have surgery scheduled for the beginning of October for his rotator cuff injury. 12/09/2023 the patient is here for pulmonary follow-up visit. Overall he has been doing fairly well from a respiratory status. The family did get COVID again but he was able to isolate himself and he did not end up getting sick which is reassuring. The patient knows that if he does get COVID he can always call the office we can get him antiviral medicine. In the meantime he continues uses CPAP at nighttime with good effect. He tries to use it more than 4 hours a night. The patient also has been still complaining of the back pain and neck pain in the reticular pain primarily affecting the left intercostal spaces. He did see pain management and they did recommend some interventions including a stimulator. He is going to contemplate those options and let the doctor no how he like to proceed. From a respiratory status he is tolerating the new inhaler. Appears to be working well for him. He has not required his rescue inhaler. 02/17/2024 the patient is here for a pulmonary follow-up visit. Overall he is doing fair. He is now complaining of right-sided chest discomfort. Pleuritic nature. Worse when coughing. He has been waking up coughing and some chest tightness at nighttime. He is having to use his rescue inhaler which she has been helpful. He does continue to use his respiratory medicine with good effect. He did have pulmonary function studies which I personally reviewed. He has mild restriction. Otherwise good. The patient has been using the CPAP. The CPAP therapy continues to be affecting beneficial. He does use it for more than 4 hours a night. He is still dealing with his back pain in his chest discomfort secondary to the radiculopathy. He has consider a pain stimulator. He has not sure as it yet. He is also dealing with shoulder issues. Does have a congested cough. Likely has a component of bronchitis. He has low IgM level suggesting some degree of immunodeficiency. Will try him on azithromycin 3 times a week. The patient will also undergo a chest x-ray and blood work. If he has any worsening symptoms he will call for an earlier assessment. 04/13/2024 the patient is here for pulmonary follow-up visit. Overall the patient is doing fairly okay. He is still complaining of daytime drowsiness. His Tipton score is elevated 24. This has been after effective treatment with sleep apnea. We did download the machine. He does use it more than 4 hours and his adherence is at 97%. The patient's AHI is down to 1.3 in the therapy has been affecting beneficial although he continues to have daytime drowsiness. Therefore started on small dose of Nuvigil may be effective for him. In addition to that he did complete the antibiotics for the chronic bronchitis and seems to be doing better and will stop the medicine at this time. He will continue with his current respiratory regimen though. He is working closely with pain management and also with GI. A lot of the GI symptoms have improved after stopping the Trulicity injections. Therefore the patient was start individual and will let us know we have to increase the dose. This is a very small dose and is at some trial to make sure that he tolerates especially since he is very sensitive to medications. He does tolerated we can increase slowly to the therapeutic range. [facility] Medical History (Updated 02/17/24 @ 09:50 by Renato Saba MD) Has daytime drowsiness Allergies History of anesthesia complications Family history of anesthesia complication Type 2 diabetes mellitus Murmur COPD (chronic obstructive pulmonary disease) Lumbar post-laminectomy syndrome Degenerative cervical spinal stenosis Neuropathic pain COVID-19 Chest pain Post herpetic neuralgia Pleuritic chest pain Obesity (BMI 30-39.9) Asthma Pneumonia SONY (obstructive sleep apnea) [id number] syndrome Reactive airway disease On beta mitra at home History of pneumonia Vitamin D deficiency Left nephrolithiasis Dyslipidemia Diabetic polyneuropathy associated with type 2 diabetes mellitus Hypogonadism Failed back syndrome of lumbar spine Arthritis Back pain GERD (gastroesophageal reflux disease) History of fatty infiltration of liver History of ADHD Depression Elevated cholesterol HTN (hypertension) CAD (coronary artery disease) History of 2019 novel coronavirus disease (COVID-19) Cervical radiculopathy Nephrolithiasis Surgical History (Updated 05/24/23 @ 16:10 by Aurea Castañeda, [employer] HAND-C) S/P cardiac catheterization History of kidney surgery Gynecomastia History of elbow surgery Hx laparoscopic cholecystectomy History of carpal tunnel release Hx of shoulder surgery Hx of arthroscopic knee surgery History of esophagogastroduodenoscopy (EGD) H/O colonoscopy Hx of lumbar discectomy Hx of cardiac catheterization Family History Father Diabetes Hypertension Myocardial infarction Mother Diabetes Stroke Alzheimers disease Pacemaker Brother Diabetes Heart problem Myocardial infarction Sister Myocardial infarction Maternal Grandmother Myocardial infarction Social History Household Members: Spouse and Family Housing: Apartment Are you a primary adult live in caregiver to a significant other at home: No Do you presently have visiting nurse or other home services: No Alcohol intake: never Patient Tobacco Use Status: Never used Tobacco e-Cigarette/Vaping Use: Never Used Second Hand Smoke Exposure: No Advance Directives Date on File: 09/28/23 service: No Current occupational status: disabled Review of Systems Const Denies fatigue, Denies weight gain and Reports weight loss Eyes Denies blurry vision ENT Denies epistaxis and Denies sore throat Card Reports chest pain, Denies palpitations and Denies dyspnea Resp Reports chest congestion, Reports cough, Reports pain on inspiration and Denies dyspnea GI Denies constipation and Denies diarrhea Denies dysuria and Denies urinary frequency Musc Reports back pain, Reports arthralgias, Reports joint swelling, Reports limited range of motion, Denies muscle cramps, Denies muscle weakness, Reports numbness and Reports tingling Neuro Denies burning sensations, Reports numbness, Reports tingling and Denies paresthesias Psych Denies depression Endo Denies fatigue, Denies polydipsia, Denies polyuria and Denies palpitations Tejas/Lymph Denies easy bruising Physical Exam Vital Signs: Last Vital Signs Pulse 63 04/13/24 10:44 Pulse Ox 98 04/13/24 10:44 Oxygen Delivery Method Room Air 04/13/24 10:44 BMI result Body Mass Index 32.4 Const General: no acute distress and alert HEENT Head: Yes normocephalic and Yes atraumatic Eyes Sclerae: sclerae normal EOM: EOMs intact bilaterally Neck Neck: Yes no lymphadenopathy, Yes trachea midline and Yes no JVD Thyroid: Thyroid normal Chest Chest palpation & inspection: normal inspection of the chest Resp Effort & Inspection: normal respiratory effort Auscultation: diminished lung sounds Cardio Rate: regular rate Rhythm: regular rhythm Heart sounds: S1 normal heart sound present and S2 normal heart sound present Peripheral pulses: Peripheral pulses 2+ throughout GI Inspection: Yes normal to inspection and No distended Auscultation: normal bowel sounds Skin Other: No acanthosis nigricans or diabetic dermopathy Neuro Sensory Exam: Trunk sensory exam abnormal (tenderness skin palpation superficial pain dermatomal distributibution) Deep tendon reflexes (DTR's): Rt Biceps (C5, C6): 2+, Left biceps reflex intensity grade: 2+, Right patellar reflex intensity grade: 2+ and Left patellar reflex intensity grade: 2+ Extrem Other: Foot inspection: No lesions, ulcers. + oncymychosis General: Yes normal gait, No clubbing, No cyanosis and No edema Psych Affect: normal affect Attitude: cooperative Assessment & Plan Assessment & Plan (1) SONY (obstructive sleep apnea): Code(s): G47.33 - Obstructive sleep apnea (adult) (pediatric) Category: Medical (2) [id number] syndrome: Code(s): B94.8 - Sequelae of other specified infectious and parasitic diseases Category: Medical (3) Asthma: Code(s): J45.909 - Unspecified asthma, uncomplicated Category: Medical Qualifiers: Asthma complication type: uncomplicated Asthma persistence: persistent Asthma severity: moderate Qualified Code(s): J45.40 - Moderate persistent asthma, uncomplicated (4) Lumbar post-laminectomy syndrome: Code(s): M96.1 - Postlaminectomy syndrome, not elsewhere classified Category: Medical (5) Has daytime drowsiness: Comment: even after effective APAP therapy with AHI 1.3 Code(s): R40.0 - Somnolence Category: Social Hx Plan continue Breztri BID short-acting beta agonist as needed nebulizer that he can use as needed lidoderm patch to the left sided neuropathy continue APAP therapy, medium F30i mask, stopped Azithromycin MWF start Nuvigil, slowly increas to the effective dose F/U 3-4 months Medications: New armodafinil (Nuvigil) 50 mg PO QAM 30 tabs 3RF 30 days Coding Level of Care Code Est Pt Level 4 (38696) Diagnoses SONY (obstructive sleep apnea) G47.33 [id number] syndrome B94.8 Moderate persistent asthma without complication J45.40 Asthma complication type: uncomplicated Asthma persistence: persistent Asthma severity: moderate Lumbar post-laminectomy syndrome M96.1 Has daytime drowsiness R40.0 Time Spent (min) 17
== END 2024-04-13 11:03 | disposition home or self-care (01) ==
PROVIDERS: PCP Nurse Practitioner; Visit Provider Hospitalist
DX: G47.33 Obstructive sleep apnea (adult) (pediatric) (principal); B94.8 Sequelae of other specified infectious and parasitic diseases; J45.40 Moderate persistent asthma, uncomplicated; M96.1 Postlaminectomy syndrome, not elsewhere classified; R40.0 Somnolence
CPT/HCPCS: 99214

== ENCOUNTER → 2024-04-13 10:17 | Outpatient (BNVA) | payer OTHER, SELFPAY | PROVIDERS: PCP Nurse Practitioner; Visit Provider Hospitalist | DX: J45.40 Moderate persistent asthma, uncomplicated (principal); G47.33 Obstructive sleep apnea (adult) (pediatric); B94.8 Sequelae of other specified infectious and parasitic diseases; M96.1 Postlaminectomy syndrome, not elsewhere classified; R40.0 Somnolence | CPT/HCPCS: 99212 ==

== ENCOUNTER 2024-05-24 13:19 | Outpatient (AMB) | payer OTHER, SELFPAY ==
[2024-05-24 13:21] VITALS: BP 130/72; PULSE 66; BMI 32.1
--- NOTE | 2024-05-24 13:21 | MHC.OFFVIS ---
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: No Accompanied by: Self / Same As Patient Allergies empagliflozin [From Jardiance] Allergy (Severe, Verified 04/13/24 10:47) Itching morphine [Morphine] Allergy (Severe, Verified 04/13/24 10:47) HIVES, THROAT CLOSES penicillin G [Penicillin G] Allergy (Severe, Verified 04/13/24 10:47) ANAPHYLAXIS Sulfa (Sulfonamide Antibiotics) [SULFA (SULFONAMIDE ANTIBIOTICS)] Allergy (Severe, Verified 04/13/24 10:47) ANAPHYLAXIS Gadolinium-Containing Contrast Medi [Gadolinium-Containing Agents] Allergy (Intermediate, Verified 04/13/24 10:47) Hives/Rash, dizziness, blue spots adhesive tape Adverse Reaction (Intermediate, Verified 04/13/24 10:47) Rash tramadol Adverse Reaction (Intermediate, Verified 04/13/24 10:47) Gastrointestinal Upset Medication List - Last Reconciled 05/24/24 by Robbie Ocampo MD albuterol sulfate 90 mcg/actuation (Ventolin HFA) 2 puffs inhalation QID PRN 30 days allopurinol 300 mg PO DAILY amlodipine 5 mg PO DAILY armodafinil (Nuvigil) 50 mg PO QAM 30 days aspirin 81 mg PO DAILY azelastine 2 sprays intranasal BID 30 days azithromycin 250 mg PO 3XW 28 days blood sugar diagnostic (FreeStyle Lite Strips) 4 times a day blood-glucose meter (FreeStyle Lite Meter kit) As directed 4x/day blood-glucose meter,continuous (Dexcom G6 Book Sewer) As directed blood-glucose sensor (Dexcom G6 Sensor device) As directed every 10 days blood-glucose transmitter (Dexcom G6 Transmitter device) As directed one every 3 months tehxapkiha-wzpwetpb-mqbugastus 160-9-4.8 mcg/actuation (Breztri Aerosphere) 2 inhalations inhalation BID 30 days carboxymethylcellulose sodium 0.5% (Refresh Tears) 1 drp ophthalmic (eye) BID cholecalciferol (vitamin D3) 50 mcg PO DAILY ezetimibe 10 mg PO DAILY flash glucose scanning reader ([employer] Eneida 2 [place]) As directed flash glucose sensor (FreeStyle Eneida 2 Sensor kit) As directed every 2 weeks fluoxetine 40 mg PO DAILY 90 days lancets (FreeStyle Lancets) 4 times a day lidocaine 5% (Lidoderm) 1 patch topical DAILY 30 days lisinopril 10 mg PO DAILY melatonin 5 mg PO BEDTIME PRN 30 days metformin ER 1,000 mg PO BID metoprolol succinate ER 25 mg PO DAILY mometasone-formoterol 200-5 mcg/actuation (Dulera) 2 puffs inhalation Q12H 30 days omeprazole 40 mg PO BID pen needle, diabetic As directed potassium citrate ER 1,620 mEq PO BID pregabalin 150 mg PO BID rosuvastatin 40 mg PO DAILY sitagliptin phosphate (Januvia) 100 mg PO DAILY sodium chloride-aloe vera ([place] Saline Gel nasal spray) 1 spray intranasal BID 30 days tamsulosin 0.4 mg PO DAILY HPI Comments Details: Mohit comes for follow-up. He continues to have intermittent episodes of elevated blood pressure. He also says that his sugars have been uncontrolled. He continues to have intermittent episode of chest pain mostly at rest and/or he notices that this is in the setting of elevated blood pressure. Also has headaches. Blood pressure can go up to 180 systolic. He denies any palpitations. No heart failure symptoms. [facility] Medical History (Updated 05/25/24 @ 14:55 by Robbie Ocampo MD) Has daytime drowsiness Allergies History of anesthesia complications Family history of anesthesia complication Type 2 diabetes mellitus Murmur COPD (chronic obstructive pulmonary disease) Lumbar post-laminectomy syndrome Degenerative cervical spinal stenosis Neuropathic pain COVID-19 Chest pain Post herpetic neuralgia Pleuritic chest pain Obesity (BMI 30-39.9) Asthma Pneumonia SONY (obstructive sleep apnea) [id number] syndrome Reactive airway disease On beta mitra at home History of pneumonia Vitamin D deficiency Left nephrolithiasis Dyslipidemia Diabetic polyneuropathy associated with type 2 diabetes mellitus Hypogonadism Failed back syndrome of lumbar spine Arthritis Back pain GERD (gastroesophageal reflux disease) History of fatty infiltration of liver History of ADHD Depression Elevated cholesterol HTN (hypertension) CAD (coronary artery disease) History of 2019 novel coronavirus disease (COVID-19) Cervical radiculopathy Nephrolithiasis Surgical History (Updated 05/25/24 @ 14:55 by Robbie Ocampo MD) Hx of cardiac catheterization S/P cardiac catheterization History of kidney surgery Gynecomastia History of elbow surgery Hx laparoscopic cholecystectomy History of carpal tunnel release Hx of shoulder surgery Hx of arthroscopic knee surgery History of esophagogastroduodenoscopy (EGD) H/O colonoscopy Hx of lumbar discectomy Family History Father Diabetes Hypertension Myocardial infarction Mother Diabetes Stroke Alzheimers disease Pacemaker Brother Diabetes Heart problem Myocardial infarction Sister Myocardial infarction Maternal Grandmother Myocardial infarction Social History Household Members: Spouse and Family Housing: Apartment Are you a primary customer care coordinator to a significant other at home: No Do you presently have visiting nurse or other home services: No Alcohol intake: never Patient Tobacco Use Status: Never used Tobacco e-Cigarette/Vaping Use: Never Used Second Hand Smoke Exposure: No Advance Directives Date on File: 09/28/23 service: No Current occupational status: disabled Review of Systems Const Denies chills, Denies fatigue, Denies fever(s), Denies frequent falls, Reports weakness, Denies weight gain and Denies weight loss ENT Reports dizziness Card Denies chest pain, Denies leg edema, Reports lightheadedness, Denies palpitations, Denies dyspnea and Denies dyspnea on exertion Resp Denies cough, Denies dyspnea and Denies dyspnea on exertion GI Denies hematochezia Musc Denies abnormal gait, Denies muscle weakness, Denies numbness, Denies radiating pain into limb and Denies tingling Neuro Denies abnormal gait, Reports dizziness, Denies frequent falls, Denies numbness, Denies tingling and Reports weakness Endo Denies fatigue and Denies palpitations Physical Exam Vital Signs: Last Vital Signs Pulse 66 05/24/24 13:21 BP 130/72 05/24/24 13:21 BMI result Body Mass Index 32.1 Const General: cooperative, healthy appearing, comfortable and no acute distress Orientation/consciousness: patient oriented x3 Neck Neck: Yes normal visual inspection Resp Effort & Inspection: normal respiratory effort Auscultation: clear to auscultation bilaterally, no crackles, no rales, no rhonchi and no wheezes Cardio Jugular venous distension: no JVD Rate: regular rate Rhythm: regular rhythm Heart sounds: S1 normal heart sound present, S2 normal heart sound present, no gallops, Murmur heart sound present systolic early, decrescendo and crescendo and no rubs Neuro General: patient oriented x3 Extrem Other: Right radial catheterization site well healed, easily palpable radial pulse, hand assessment normal General: Yes normal to inspection Psych Appearance: grossly normal Mental Status: mental status grossly normal Speech and movement: Normal speech and movement present Assessment & Plan Assessment & Plan (1) Aortic valve disorder: Code(s): I35.9 - Nonrheumatic aortic valve disorder, unspecified Category: Medical Plan: Patient with mild aortic stenosis. This is not clinically significant at this point time. Not responsive for symptoms. Discussed with him about management with aggressive risk factor modification. Echocardiogram next year and follow-up after that. Gradual progressive nature of aortic stenosis were discussed. (2) CAD (coronary artery disease): Comment: Echo October 2019 EF 60-65% June 2017, mild LAD [id number] HCS. DEnies recent chest pain. Code(s): I25.10 - Atherosclerotic heart disease of [place] coronary artery without angina pectoris Category: Medical Qualifiers: Coronary Disease-Associated Artery/Lesion type: [place] artery [place] vs. transplanted heart: [place] heart Associated angina: without angina Qualified Code(s): I25.10 - Atherosclerotic heart disease of [place] coronary artery without angina pectoris Plan: CAD which is nonobstructive by cardiac catheterization last year. Not responsible for his chest pain syndrome. Continue aggressive risk factor modification. Low-dose aspirin therapy for life. Continue aggressive blood pressure control, see below. Continue aggressive diabetes management goal hemoglobin A1c less than 7%. Goal LDL less than 70 mg/dL being pursue through office. Continue high-intensity statin therapy. Encouraged to increase activity level as tolerated. (3) Labile blood pressure: Code(s): R09.89 - Other specified symptoms and signs involving the circulatory and respiratory systems Category: Medical Plan: Labile blood pressure which could be due to autonomic dysfunction related to his diabetes. However mostly blood pressure is elevated. Advise low-salt diet. Advised to monitor blood pressure at home maintain a log. Will increase amlodipine to 10 mg daily. May need staggering of his medications if he develops low blood pressure symptoms. However difficulty in managing this was discussed. May need further look into his CPAP therapy to see if he is getting adequate obstructive sleep apnea treatment. Consider renal duplex to evaluate for renal artery stenosis. Will follow up in the clinic in 1 year's time, sooner p.r.n.. Thank you for allowing me to partake in his care Orders: Orders CA echo transthoracic complete 1 Year I35.9 - Nonrheumatic aortic valve disorder, unspecified Medications: New amlodipine 10 mg PO DAILY 30 tabs 5RF Discontinued amlodipine Discontinued Reason: Doctor's Order 5 mg PO DAILY 30 tabs 11RF Coding Level of Care Code Est Pt Level 4 (41232) Diagnoses Aortic valve disorder I35.9 Coronary artery disease involving [place] coronary artery of [place] heart without angina pectoris I25.10 Coronary Disease-Associated Artery/Lesion type: [place] artery [place] vs. transplanted heart: [place] heart Associated angina: without angina Labile blood pressure R09.89
== END 2024-05-24 13:55 | disposition home or self-care (01) ==
PROVIDERS: PCP Nurse Practitioner; Visit Provider Internal Medicine Cardiovascular Disease
DX: I35.9 Nonrheumatic aortic valve disorder, unspecified (principal); I25.10 Atherosclerotic heart disease of native coronary artery without angina pectoris; R09.89 Other specified symptoms and signs involving the circulatory and respiratory systems
CPT/HCPCS: 99214

== ENCOUNTER → 2024-05-24 13:19 | Outpatient (BNVA) | payer OTHER, SELFPAY | PROVIDERS: PCP Nurse Practitioner; Visit Provider Internal Medicine Cardiovascular Disease | DX: I35.9 Nonrheumatic aortic valve disorder, unspecified (principal); I25.10 Atherosclerotic heart disease of native coronary artery without angina pectoris; R09.89 Other specified symptoms and signs involving the circulatory and respiratory systems | CPT/HCPCS: 99212 ==

== ENCOUNTER 2024-06-19 13:52 | Outpatient (AMB) | payer OTHER, SELFPAY ==
--- NOTE | 2024-06-19 13:50 | A.OFFPC_ITS ---
Vital Signs 06/19/24 14:19 Height 6 ft Weight 235 lb 6 oz BMI 31.9 BP 100/62 Blood Pressure Location Rt brachial Position Sitting Respiration 16 Pulse 63 Pulse Source Pulse Oximeter Pulse Oximetry (%) 96 Oxygen Delivery Method Room Air Intake Visit Reasons: new patient appointment uncontrolled dabetes Intake Note: New patient visit. Low blood pressure, dizzy. 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: No Allergies empagliflozin [From Jardiance] Allergy (Severe, Verified 06/19/24 13:51) Itching morphine [Morphine] Allergy (Severe, Verified 06/19/24 13:51) HIVES, THROAT CLOSES penicillin G [Penicillin G] Allergy (Severe, Verified 06/19/24 13:51) ANAPHYLAXIS Sulfa (Sulfonamide Antibiotics) [SULFA (SULFONAMIDE ANTIBIOTICS)] Allergy (Severe, Verified 06/19/24 13:51) ANAPHYLAXIS Gadolinium-Containing Contrast Medi [Gadolinium-Containing Agents] Allergy (Intermediate, Verified 06/19/24 13:51) Hives/Rash, dizziness, blue spots adhesive tape Adverse Reaction (Intermediate, Verified 06/19/24 13:51) Rash tramadol Adverse Reaction (Intermediate, Verified 06/19/24 13:51) Gastrointestinal Upset Medication List - Last Reconciled 06/27/24 by Christine De MD [acetaminophen .] albuterol sulfate 90 mcg/actuation (Ventolin HFA) 2 puffs inhalation QID PRN 30 days allopurinol 300 mg PO DAILY amlodipine 5 mg PO DAILY armodafinil (Nuvigil) 50 mg PO QAM 30 days aspirin 81 mg PO DAILY azelastine 2 sprays intranasal BID 30 days blood sugar diagnostic (FreeStyle Lite Strips) 4 times a day blood-glucose meter (FreeStyle Lite Meter kit) As directed 4x/day blood-glucose meter,continuous (Dexcom G6 Hogshead Hand) As directed blood-glucose sensor (Dexcom G6 Sensor device) As directed every 10 days blood-glucose transmitter (Dexcom G6 Transmitter device) As directed one every 3 months ubihghkotk-mbfwgcrf-bvvhqvkvov 160-9-4.8 mcg/actuation (Breztri Aerosphere) 2 inhalations inhalation BID 30 days carboxymethylcellulose sodium 0.5% (Refresh Tears) 1 drp ophthalmic (eye) BID cholecalciferol (vitamin D3) 50 mcg PO DAILY ezetimibe 10 mg PO DAILY flash glucose scanning reader (FreeStyle Eneida 2 [place]vale) As directed flash glucose sensor (FreeStyle Eneida 2 Sensor kit) As directed every 2 weeks fluoxetine 40 mg PO DAILY 90 days insulin glargine (Lantus Solostar U-100 Insulin) 22 units (0.22 mL) subcut QPM lancets (FreeStyle Lancets) 4 times a day lidocaine 5% (Lidoderm) 1 patch topical DAILY 30 days lisinopril 10 mg PO DAILY melatonin 5 mg PO BEDTIME PRN 30 days metformin ER 750 mg PO BID metoprolol succinate ER 25 mg PO DAILY mometasone-formoterol 200-5 mcg/actuation (Dulera) 2 puffs inhalation Q12H 30 days omeprazole 40 mg PO BID ondansetron HCl 4 mg PO Q8H pen needle, diabetic As directed pioglitazone (Actos) 30 mg PO DAILY potassium citrate ER 1,620 mEq PO BID pregabalin 150 mg PO BID rosuvastatin 40 mg PO DAILY sodium chloride-aloe vera (Baxter Saline Gel nasal spray) 1 spray intranasal BID 30 days tamsulosin 0.4 mg PO DAILY Tobacco use date assessed: 06/19/24 Dental Screening Dental Screen Date: 06/19/24 Did you have a dental visit in the last 12 months?: Yes Did you have a dental problem in the last 6 months where you did not have access to dental care?: No Was dental information given to patient?: Patient has dentist HPI HPI Comments History of Present Illness Details The patient is a 59 year old male with a past medical history of type 2 diabetes, hypertension, depression, gout, insomnia presenting to [facility] care He was hospitalized recently -reports blood glucose and blood pressure have both been fluctuating. DM: Uncontrolled. Was previously seeing endocrinology. On metformin 750mg twice daily. lantus 22 units. CV: Follows with cardiology, Dr Ocampo. On lisinopril 10, amlodipine 10, toprol 25, crestor. Reports blood pressure has been fluctuating Rsp: Follows with pulmonary. On dulera, azithromycin 3x/wk ROS CONSTITUTIONAL: Denies weight loss, fever and chills. HEENT: Denies changes in vision and hearing. RESPIRATORY: Denies SOB and cough. CV: Denies palpitations and CP GI: Denies abdominal pain, nausea, vomiting and diarrhea. : Denies dysuria and urinary frequency. MSK: Denies new myalgia and joint pain. SKIN: Denies rash and pruritus. NEUROLOGICAL: Denies headache PSYCHIATRIC: Denies recent changes in mood. PHYSICAL EXAM: GENERAL: Alert and oriented x 3. NAD EYES: EOMI. Anicteric. HENT: Moist mucous membranes. No scleral icterus. No cervical lymphadenopathy. LUNGS: Clear to auscultation bilaterally. CARDIOVASCULAR: Regular rate and rhythm. No murmur. No JVD. ABDOMEN: Soft, non-tender +bs EXTREMITIES: No edema. Non-tender. SKIN: No rashes or lesions. Warm. NEUROLOGIC: No focal neurological deficits. CN II-XII grossly intact PSYCHIATRIC: Cooperative. Appropriate mood and affect [facility] Medical History (Updated 06/27/24 @ 11:11 by Christine De MD) Has daytime drowsiness Allergies History of anesthesia complications Family history of anesthesia complication Type 2 diabetes mellitus Murmur COPD (chronic obstructive pulmonary disease) Lumbar post-laminectomy syndrome Degenerative cervical spinal stenosis Neuropathic pain COVID-19 Chest pain Post herpetic neuralgia Pleuritic chest pain Obesity (BMI 30-39.9) Asthma Pneumonia SONY (obstructive sleep apnea) [id number] syndrome Reactive airway disease On beta mitra at home History of pneumonia Vitamin D deficiency Left nephrolithiasis Dyslipidemia Diabetic polyneuropathy associated with type 2 diabetes mellitus Hypogonadism Failed back syndrome of lumbar spine Arthritis Back pain GERD (gastroesophageal reflux disease) History of fatty infiltration of liver History of ADHD Depression Elevated cholesterol HTN (hypertension) CAD (coronary artery disease) History of 2019 novel coronavirus disease (COVID-19) Cervical radiculopathy Nephrolithiasis Surgical History (Updated 05/25/24 @ 14:55 by Robbie Ocampo MD) Hx of cardiac catheterization S/P cardiac catheterization History of kidney surgery Gynecomastia History of elbow surgery Hx laparoscopic cholecystectomy History of carpal tunnel release Hx of shoulder surgery Hx of arthroscopic knee surgery History of esophagogastroduodenoscopy (EGD) H/O colonoscopy Hx of lumbar discectomy Family History Father Diabetes Hypertension Myocardial infarction Mother Diabetes Stroke Alzheimers disease Pacemaker Brother Diabetes Heart problem Myocardial infarction Sister Myocardial infarction Maternal Grandmother Myocardial infarction Social History (Updated 06/19/24 @ 13:52 by JASON Bills Household Members: Spouse and Family Housing: Apartment Are you a primary infant childcare provider to a significant other at home: No Do you presently have visiting nurse or other home services: No Alcohol intake: never Patient Tobacco Use Status: Never used Tobacco e-Cigarette/Vaping Use: Never Used Second Hand Smoke Exposure: No Advance Directives Date on File: 09/28/23 service: No Current occupational status: disabled Cognitive needs: No Hearing needs: No Vision needs: No Questionnaire PHQ-9 Over the last 2 weeks, how often have you been bothered by any of the following problems? 94199 - PHQ-9 Billing: Patient declined-do not bill Source: Developed by Drs. Osvaldo Velasquez, Keyona Martinez, Luc Martinez and colleagues, with an educational jose from [email or web address]. Thrive Questionnaire Date Thrive assessed: 06/17/24 I am a: Patient What is your living situation today?: I have a place to live, but I am worried about losing it in the future Within the past 12 months, did you worry whether your food would run out before you got money to buy more?: Often true Do you have trouble paying for medicines?: No Do you have trouble getting transportation to medical appointments?: No Do you have trouble paying your heating and electricity bill?: No Please select the resources that you would like help with: Food Currently or been in a relationship where the following occur: No concerns reported THRIVE Score: 2 AUDIT C Alcohol Use Questionnaire (AUDIT-C) 1. How often do you have a drink containing alcohol?: Never 3. How often do you have six or more drinks on one occasion?: Never Total Score: 0 OANH-7 AMB Questionnaire OANH-7 Date OANH - 7 assessed: 06/19/24 Feeling nervous, anxious, or on edge: 0 = Not at all Not being able to stop or control worryin = Not at all Worrying too much about different things: 1 = Several days Trouble relaxin = Not at all Being so restless that it is hard to sit still: 1 = Several days Becoming easily annoyed or irritable: 0 = Not at all Feeling afraid as if something awful might happen: 0 = Not at all Total OANH-7 score (0-4 normal; 5-9 mild; 10-14 moderate; 15-21 severe): 2 Source: Developed by Drs. Osvaldo Velasquez, Keyona Martinez, Luc Martinez and colleagues, with an educational jose from [email or web address]. OANH-7 Assessment Billing OANH-7 Assessment Tool: pt declined-do not bill ACT Questionnaire In the past 4 weeks, how much of the time did your asthma keep you from getting as much done at work, school or at home?: Some of the time During the past 4 weeks, how often have you had shortness of breath?: 1-2 times a week During the past 4 weeks, how often did your asthma symptoms wake you up at night or earlier than usual in the morning?: Not at all During the past 4 weeks, how often have you had to use your rescue inhaler or nebulizer medication?: 2-3 times a week (couple times a day) How would you rate your asthma control during the past 4 weeks?: Completely controlled ACT Interpretation: Positive Score: 20 Physical exam (Primary Care) Vital Signs: Last Vital Signs Pulse 63 06/19/24 14:19 Resp 16 06/19/24 14:19 BP 100/62 06/19/24 14:19 Pulse Ox 96 06/19/24 14:19 Oxygen Delivery Method Room Air 06/19/24 14:19 BMI result Body Mass Index 31.9 Tobacco/Smoking Status: Tobacco use Status Tobacco use date assessed 06/19/24 06/19/24 13:52 Patient Tobacco Use Status Never used Tobacco 06/19/24 13:52 e-Cigarette/Vaping Use Never Used 06/19/24 13:52 Thrive Assessment: Date of Thrive Assessment Date Thrive assessed 06/17/24 06/19/24 13:52 Currently or been in a relationship where the following occur: No concerns reported Assessment and Plan Assessment & Plan (1) Type 2 diabetes mellitus with hyperglycemia: Code(s): E11.65 - Type 2 diabetes mellitus with hyperglycemia Qualifiers: Diabetes mellitus tank terminal gauger insulin use: with snf use Qualified Code(s): E11.65 - Type 2 diabetes mellitus with hyperglycemia; Z79.4 - detention (current) use of insulin Plan: continue Lantus, metformin Add actos. Short term follow up (2) Labile blood pressure: Code(s): R09.89 - Other specified symptoms and signs involving the circulatory and respiratory systems Plan: Decrease amlodipine from 10mg daily to 5mg daily. Orders: Orders XR DEXA axial skeleton 06/19/24 M85.80 - Other specified disorders of bone density and structure, unspecified site Medications: New pioglitazone (Actos) 30 mg PO DAILY 90 tabs 3RF insulin glargine (Lantus Solostar U-100 Insulin) 22 units (0.22 mL) subcut QPM 15 mL 3RF Discontinued amlodipine Discontinued Reason: Doctor's Order 10 mg PO DAILY 30 tabs 5RF Coding Level of Care Code New Pt Level 4 (91674) Complex EM visit Add On G2211 Diagnoses Type 2 diabetes mellitus with hyperglycemia, with long-term current use of insulin E11.65; Z79.4 Diabetes mellitus tank terminal gauger insulin use: with tank terminal gauger use Labile blood pressure R09.89 Time Spent (min) 50
[2024-06-19 14:19] VITALS: BP 100/62; PULSE 63; RESP 16; O2SAT 96; BMI 31.9
== END 2024-06-19 15:08 | disposition home or self-care (01) ==
PROVIDERS: PCP Internal Medicine; Visit Provider Internal Medicine
DX: E11.65 Type 2 diabetes mellitus with hyperglycemia (principal); Z79.4 Long term (current) use of insulin; R09.89 Other specified symptoms and signs involving the circulatory and respiratory systems

== ENCOUNTER → 2024-06-19 13:52 | Outpatient (BNVA) | payer OTHER, SELFPAY | PROVIDERS: PCP Internal Medicine; Visit Provider Internal Medicine | DX: M85.80 Other specified disorders of bone density and structure, unspecified site (principal); R09.89 Other specified symptoms and signs involving the circulatory and respiratory systems; F32.A Depression, unspecified; E11.65 Type 2 diabetes mellitus with hyperglycemia; Z79.4 Long term (current) use of insulin | CPT/HCPCS: 99202 ==

== ENCOUNTER 2024-07-06 13:30 | Outpatient (AMB) | payer OTHER, SELFPAY ==
--- NOTE | 2024-07-06 13:37 | MHC.PC.OV ---
Vital Signs 07/06/24 13:44 Height 6 ft Weight 237 lb 8 oz BMI 32.2 BP 126/72 Blood Pressure Location Lt brachial Position Sitting Pulse 60 Pulse Source Pulse Oximeter Pulse Oximetry (%) 98 Oxygen Delivery Method Room Air Intake Visit Reasons: DM follow up Intake Note: Diabetes follow up Allergies empagliflozin [From Jardiance] Allergy (Severe, Verified 07/06/24 13:41) Itching morphine [Morphine] Allergy (Severe, Verified 07/06/24 13:41) HIVES, THROAT CLOSES penicillin G [Penicillin G] Allergy (Severe, Verified 07/06/24 13:41) ANAPHYLAXIS Sulfa (Sulfonamide Antibiotics) [SULFA (SULFONAMIDE ANTIBIOTICS)] Allergy (Severe, Verified 07/06/24 13:41) ANAPHYLAXIS Gadolinium-Containing Contrast Medi [Gadolinium-Containing Agents] Allergy (Intermediate, Verified 07/06/24 13:41) Hives/Rash, dizziness, blue spots adhesive tape Adverse Reaction (Intermediate, Verified 07/06/24 13:41) Rash tramadol Adverse Reaction (Intermediate, Verified 07/06/24 13:41) Gastrointestinal Upset Tobacco use date assessed: 06/19/24 Dental Screening Dental Screen Date: 06/19/24 HPI HPI Comments History of Present Illness Details The patient is a 59 year old male with a past medical history of type 2 diabetes, hypertension, depression, gout, insomnia presenting for follow up last visit-He was hospitalized recently -reports blood glucose and blood pressure have both been fluctuating. DM: Uncontrolled. Was previously seeing endocrinology. On metformin 750mg twice daily. lantus 22 units, actos was started 2 wks ago. A1C 8.5 today. improved fasting glucose but still not at goal CV: Follows with cardiology, Dr Ocampo. On lisinopril 10, amlodipine 5 daily (decreased from 10), toprol 25, crestor. Reports blood pressure has been fluctuating Rsp: Follows with pulmonary. On dulera, azithromycin 3x/wk ROS CONSTITUTIONAL: Denies weight loss, fever and chills. HEENT: Denies changes in vision and hearing. RESPIRATORY: Denies SOB and cough. CV: Denies palpitations and CP GI: Denies abdominal pain, nausea, vomiting and diarrhea. : Denies dysuria and urinary frequency. MSK: Denies new myalgia and joint pain. SKIN: Denies rash and pruritus. NEUROLOGICAL: Denies headache PSYCHIATRIC: Denies recent changes in mood. PHYSICAL EXAM: GENERAL: Alert and oriented x 3. NAD EYES: EOMI. Anicteric. HENT: Moist mucous membranes. No scleral icterus. No cervical lymphadenopathy. LUNGS: Clear to auscultation bilaterally. CARDIOVASCULAR: Regular rate and rhythm. No murmur. No JVD. ABDOMEN: Soft, non-tender +bs EXTREMITIES: No edema. Non-tender. SKIN: No rashes or lesions. Warm. NEUROLOGIC: No focal neurological deficits. CN II-XII grossly intact PSYCHIATRIC: Cooperative. Appropriate mood and affect [facility] Medical History (Updated 06/27/24 @ 11:11 by Christine De MD) Has daytime drowsiness Allergies History of anesthesia complications Family history of anesthesia complication Type 2 diabetes mellitus Murmur COPD (chronic obstructive pulmonary disease) Lumbar post-laminectomy syndrome Degenerative cervical spinal stenosis Neuropathic pain COVID-19 Chest pain Post herpetic neuralgia Pleuritic chest pain Obesity (BMI 30-39.9) Asthma Pneumonia SONY (obstructive sleep apnea) [id number] syndrome Reactive airway disease On beta mitra at home History of pneumonia Vitamin D deficiency Left nephrolithiasis Dyslipidemia Diabetic polyneuropathy associated with type 2 diabetes mellitus Hypogonadism Failed back syndrome of lumbar spine Arthritis Back pain GERD (gastroesophageal reflux disease) History of fatty infiltration of liver History of ADHD Depression Elevated cholesterol HTN (hypertension) CAD (coronary artery disease) History of 2019 novel coronavirus disease (COVID-19) Cervical radiculopathy Nephrolithiasis Surgical History (Updated 05/25/24 @ 14:55 by Robbie Ocampo MD) Hx of cardiac catheterization S/P cardiac catheterization History of kidney surgery Gynecomastia History of elbow surgery Hx laparoscopic cholecystectomy History of carpal tunnel release Hx of shoulder surgery Hx of arthroscopic knee surgery History of esophagogastroduodenoscopy (EGD) H/O colonoscopy Hx of lumbar discectomy Family History Father Diabetes Hypertension Myocardial infarction Mother Diabetes Stroke Alzheimers disease Pacemaker Brother Diabetes Heart problem Myocardial infarction Sister Myocardial infarction Maternal Grandmother Myocardial infarction Social History (Updated 06/19/24 @ 13:52 by Amy Conley CMA) Household Members: Spouse and Family Housing: Apartment Are you a primary long term acute care registered nurse to a significant other at home: No Do you presently have visiting nurse or other home services: No Alcohol intake: never Patient Tobacco Use Status: Never used Tobacco e-Cigarette/Vaping Use: Never Used Second Hand Smoke Exposure: No Advance Directives Date on File: 09/28/23 service: No Current occupational status: disabled Cognitive needs: No Hearing needs: No Vision needs: No Questionnaire Thrive Questionnaire Date Thrive assessed: 06/17/24 I am a: Patient What is your living situation today?: I have a place to live, but I am worried about losing it in the future Within the past 12 months, did the food you bought not last and you didn't have the money to get more?: Often true Within the past 12 months, did you worry whether your food would run out before you got money to buy more?: Often true Do you have trouble paying for medicines?: No Do you have trouble getting transportation to medical appointments?: No Do you have trouble paying your heating and electricity bill?: No Do you have trouble taking care of your child, family member or friend?: No Do you have trouble with day-to-day activities such as bathing, preparing meals, shopping, managing finances, etc.?: No Are you currently unemployed and looking for a job?: No Are you interested in more education?: No Please select the resources that you would like help with: Food Currently or been in a relationship where the following occur: No concerns reported THRIVE Score: 3 OANH-7 AMB Questionnaire OANH-7 Date OANH - 7 assessed: 06/19/24 Becoming easily annoyed or irritable: 0 = Not at all Source: Developed by Drs. Osvaldo Velasquez, Keyona Martinez, Luc Martinez and colleagues, with an educational jose from [employer]. Physical exam (Primary Care) Vital Signs: Last Vital Signs Pulse 60 07/06/24 13:44 BP 126/72 07/06/24 13:44 Pulse Ox 98 07/06/24 13:44 Oxygen Delivery Method Room Air 07/06/24 13:44 BMI result Body Mass Index 32.2 Tobacco/Smoking Status: Tobacco use Status Tobacco use date assessed 06/19/24 07/06/24 13:40 Patient Tobacco Use Status Never used Tobacco 07/06/24 13:40 e-Cigarette/Vaping Use Never Used 07/06/24 13:40 Thrive Assessment: Date of Thrive Assessment Date Thrive assessed 06/17/24 07/06/24 13:40 Currently or been in a relationship where the following occur: No concerns reported Results AMB Hemoglobin A1c AMB Hemoglobin A1c 8.5 % Last Edit by Amy Conley CMA on 07/06/24 13:50 Results Reviewed Results Reviewed: Laboratory Last Values Hgb A1c (Clinic) 8.5 % (4.0-6.0) H 07/06/24 13:46 Coding Level of Care Code Est Pt Level 4 (18876) Diagnoses Type 2 diabetes mellitus with hyperglycemia, with long-term current use of insulin E11.65; Z79.4 Diabetes mellitus fdc insulin use: with dedicated intermodal truck driver use Labile blood pressure R09.89 Assessment & Plan Assessment & Plan (1) Type 2 diabetes mellitus with hyperglycemia: Code(s): E11.65 - Type 2 diabetes mellitus with hyperglycemia Category: Medical Qualifiers: Diabetes mellitus dedicated intermodal truck driver insulin use: with fdc use Qualified Code(s): E11.65 - Type 2 diabetes mellitus with hyperglycemia; Z79.4 - rodent exterminator (current) use of insulin Plan: Improved control. Restart trulicity. continue lantus, actos, metformin Follow up in 3 months with glucometer, fasting readings (2) Labile blood pressure: Code(s): R09.89 - Other specified symptoms and signs involving the circulatory and respiratory systems Category: Medical Plan: stable on current medications Orders: Orders AMB Hemoglobin A1c 07/06/24 E11.42 - Type 2 diabetes mellitus with diabetic polyneuropathy US abdomen limited 07/06/24 E11.65 - Type 2 diabetes mellitus with hyperglycemia, Z79.4 - rodent exterminator (current) use of insulin Medications: New dulaglutide (Trulicity) 1.5 mg (0.5 mL) subcut QWEEK 2 mL 1RF Changed From blood-glucose sensor As directed every 10 days 3 ea 11RF E11.42 - Type 2 diabetes mellitus with diabetic polyneuropathy To blood-glucose sensor (Dexcom G6 Sensor device) As directed every 10 days 3 ea 11RF E11.42 - Type 2 diabetes mellitus with diabetic polyneuropathy
[2024-07-06 13:44] VITALS: BP 126/72; PULSE 60; O2SAT 98; BMI 32.2
== END 2024-07-06 14:05 | disposition home or self-care (01) ==
PROVIDERS: PCP Internal Medicine; Visit Provider Internal Medicine
DX: E11.65 Type 2 diabetes mellitus with hyperglycemia (principal); Z79.4 Long term (current) use of insulin; R09.89 Other specified symptoms and signs involving the circulatory and respiratory systems

== ENCOUNTER → 2024-07-06 13:30 | Outpatient (BNVA) | payer OTHER, SELFPAY | PROVIDERS: PCP Internal Medicine; Visit Provider Internal Medicine | DX: E11.65 Type 2 diabetes mellitus with hyperglycemia (principal); E11.42 Type 2 diabetes mellitus with diabetic polyneuropathy; R09.89 Other specified symptoms and signs involving the circulatory and respiratory systems; Z79.4 Long term (current) use of insulin | CPT/HCPCS: 83036; 99212 ==

== ENCOUNTER 2024-07-19 09:25 | Outpatient (REF) | payer OTHER, SELFPAY ==
--- NOTE | ~2024-07-19 | US_ITS ---
EXAMINATION: US ABDOMEN LIMITED CLINICAL INFORMATION: Type 2 diabetes mellitus with hyperglycemia. Right upper quadrant pain. COMPARISON: CT abdomen and pelvis 08/03/2021. Renal ultrasound 04/10/2021. Limited abdominal ultrasound 12/06/2019. TECHNIQUE: Real-time imaging of the right upper quadrant abdominal viscera. FINDINGS: PANCREAS: The visualized portion of the pancreas head and body are normal, portion of the pancreatic body and tail, not visualized are obscured by bowel gas. LIVER: The liver is normal in size. The liver contour is normal. Increased echogenicity of the liver parenchyma, this can be seen in the setting of hepatic steatosis or liver parenchymal disease. No focal hepatic lesion. There is no intrahepatic biliary duct dilatation seen. GALLBLADDER: Surgically absent. COMMON BILE DUCT: Normal in caliber measuring 0.8 cm in diameter. RIGHT KIDNEY: No hydronephrosis or focal parenchymal lesions. The kidney measures 12.5 cm in maximum dimension. Echogenic foci probably nonobstructing stone 5 mm. FREE FLUID: None. US/US abdomen limited IMPRESSION: 1. Increased echogenicity of the liver parenchyma, this can be seen in the setting of hepatic steatosis or liver parenchymal disease. 2. Echogenic foci in the right kidney probably nonobstructing stone 5 mm. 3. Gallbladder has been removed. 4. No ultrasound explanation for patient's symptoms. Electronically signed by: Sandra Montejo MD 08/19/2024 05:16 PM [facility]
== END 2024-07-19 09:26 | disposition home or self-care (01) ==
LOC: HO.US 09:25
PROVIDERS: PCP Internal Medicine; Visit Provider Internal Medicine
DX: E11.65 Type 2 diabetes mellitus with hyperglycemia (principal); Z79.4 Long term (current) use of insulin
CPT/HCPCS: 76705

== ENCOUNTER 2024-07-20 10:11 | Outpatient (AMB) | payer OTHER, SELFPAY ==
[2024-07-20 10:36] VITALS: BP 128/70; PULSE 60; O2SAT 97; BMI 32.7
--- NOTE | 2024-07-20 10:36 | MHC.OFFVIS ---
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: No Allergies empagliflozin [From Jardiance] Allergy (Severe, Verified 07/20/24 10:38) Itching morphine [Morphine] Allergy (Severe, Verified 07/20/24 10:38) HIVES, THROAT CLOSES penicillin G [Penicillin G] Allergy (Severe, Verified 07/20/24 10:38) ANAPHYLAXIS Sulfa (Sulfonamide Antibiotics) [SULFA (SULFONAMIDE ANTIBIOTICS)] Allergy (Severe, Verified 07/20/24 10:38) ANAPHYLAXIS Gadolinium-Containing Contrast Medi [Gadolinium-Containing Agents] Allergy (Intermediate, Verified 07/20/24 10:38) Hives/Rash, dizziness, blue spots adhesive tape Adverse Reaction (Intermediate, Verified 07/20/24 10:38) Rash tramadol Adverse Reaction (Intermediate, Verified 07/20/24 10:38) Gastrointestinal Upset HPI Comments Details: The patient is a 59-year-old gentleman with a history of obstructive sleep apnea who apparently developed COVID-19 little bit more than a year ago requiring ICU level of care. Subsequently after that his breathing has not been the same. He has had episodes of shortness of breath and has had to go to the ER multiple times because of worsening shortness of breath. He was provided with respiratory therapy including short-acting beta agonist. In addition to that he has been provided medications like prednisone. Subsequent please the patient was noted to have a recurrent pneumonia and a chest x-ray and treated with antibiotics. Does back in beginning of April. He did have a repeat chest x-ray that demonstrated resolution of the right-sided pneumonia. I did review all his imaging studies from the [facility] system. Initially when he was admitted with the COVID 19 he did not have a CT scan but did demonstrate that he had bilateral hazy opacities and decreased lung Expansion. Subsequently after that she did have the x-ray demonstrating the developing pneumonia in the right hemithorax. Still though he has never had a CT scan in view of his ongoing respiratory symptoms something that we will address the pending a how he response to this therapy in the meantime she has been struggling with CPAP. He had been on oxygen while he was in the hospital. . The CPAP was affecting beneficial before but does not appear to be helpful any longer. He is having some daytime drowsiness is within up tired. Machine appears to be broken as well. Therefore, he had a sleep study done because of his elevated Lockport score of 14/24. The sleep study again demonstrates severe sleep apnea with an AHI greater than 40 significant hypoxia. Based on that will having undergo a CPAP BiPAP titration that the patient may need oxygen or may need a different type of PAP therapy. This is something we can arrange now in regards to his respiratory therapy the patient does have significant exhalation wheezing and coughing consistent likely a component of asthma and reactive airway disease that may have of all after developing a viral pneumonitis. Therefore will optimize respiratory therapy at this time. also to note the patient has not been vaccinated for COVID-19 because of concern of allergies that he has. I encouraged him to get vaccine as well as possible. But 1st I will check to see if he still has antibodies present. 06/20/2023 the patient is here for hospital follow-up visit. He has had a very eventful summer. Continues to have significant left-sided chest discomfort which appears to be in a dermatomal distribution. The patient does have significant spinal stenosis. He was referred to pain management. The patient opted on not having any interventions. One recommendation was to have an MRI of the spine to further address his underlying pain and spinal stenosis history as well as disc disease. He continues to require pain management. We did review his CT scan of the abdomen that he had a [facility] back in March 2023. It appears to show little bit of the left lung base without any acute disease although minimal. Appears to have a small fluid collection on the right. This appears to be stable for the last few years. His last CT scan of the chest here at [facility] was back in 2020 demonstrating no significant DU except for the again that right lower lobe fluid pleural base density. The patient will continue with that became patch and then also consider some Tylenol with codeine to provide some pain relief. In the meantime due to the significant history of spinal stenosis will go ahead and request an MRI to better address the issue and help him with his ongoing pain that he has had for years. Hears already perform physical therapy he has already taken in multiple medications without any significant relief. 08/29/2023 the patient is here for a pulmonary follow-up visit. He is still having issues with the back pain. Seems to be getting worse in addition to that radiates to the front of the chest. Moderate severity. Also been having little bit more shortness of breath has been using his Dulera and his rescue inhaler more often. We had scheduled for an MRI of the back but apparently he is allergic to contrast and therefore I referred him to Pain Management in order for them to evaluate the area. He has had had surgery in the past they may have to see neurosurgery or spine surgery for further management. Still should be evaluated by Pain Management 1st to see if he is a good candidate for any nonsurgical approaches. Patient has been using CPAP. He states that he has been bleeding from the nose anything noticing some bloody secretions within the tubing and the CPAP machine. The patient will try water-based lubricant or saline gel and he will try to increase the humidity of the CPAP machine. If he has any difficulties he will call the office. I will also call the [employer] to see if I can get access to adjust the machine from that website. In view of his worsening respiratory symptoms will go ahead and switch him from Dulera to breztri with the hope that he gets better bronchodilation affect. He does have surgery scheduled for the beginning of October for his rotator cuff injury. 12/09/2023 the patient is here for pulmonary follow-up visit. Overall he has been doing fairly well from a respiratory status. The family did get COVID again but he was able to isolate himself and he did not end up getting sick which is reassuring. The patient knows that if he does get COVID he can always call the office we can get him antiviral medicine. In the meantime he continues uses CPAP at nighttime with good effect. He tries to use it more than 4 hours a night. The patient also has been still complaining of the back pain and neck pain in the reticular pain primarily affecting the left intercostal spaces. He did see pain management and they did recommend some interventions including a stimulator. He is going to contemplate those options and let the doctor no how he like to proceed. From a respiratory status he is tolerating the new inhaler. Appears to be working well for him. He has not required his rescue inhaler. 02/17/2024 the patient is here for a pulmonary follow-up visit. Overall he is doing fair. He is now complaining of right-sided chest discomfort. Pleuritic nature. Worse when coughing. He has been waking up coughing and some chest tightness at nighttime. He is having to use his rescue inhaler which she has been helpful. He does continue to use his respiratory medicine with good effect. He did have pulmonary function studies which I personally reviewed. He has mild restriction. Otherwise good. The patient has been using the CPAP. The CPAP therapy continues to be affecting beneficial. He does use it for more than 4 hours a night. He is still dealing with his back pain in his chest discomfort secondary to the radiculopathy. He has consider a pain stimulator. He has not sure as it yet. He is also dealing with shoulder issues. Does have a congested cough. Likely has a component of bronchitis. He has low IgM level suggesting some degree of immunodeficiency. Will try him on azithromycin 3 times a week. The patient will also undergo a chest x-ray and blood work. If he has any worsening symptoms he will call for an earlier assessment. 04/13/2024 the patient is here for pulmonary follow-up visit. Overall the patient is doing fairly okay. He is still complaining of daytime drowsiness. His Lockport score is elevated 24. This has been after effective treatment with sleep apnea. We did download the machine. He does use it more than 4 hours and his adherence is at 97%. The patient's AHI is down to 1.3 in the therapy has been affecting beneficial although he continues to have daytime drowsiness. Therefore started on small dose of Nuvigil may be effective for him. In addition to that he did complete the antibiotics for the chronic bronchitis and seems to be doing better and will stop the medicine at this time. He will continue with his current respiratory regimen though. He is working closely with pain management and also with GI. A lot of the GI symptoms have improved after stopping the Trulicity injections. Therefore the patient was start individual and will let us know we have to increase the dose. This is a very small dose and is at some trial to make sure that he tolerates especially since he is very sensitive to medications. He does tolerated we can increase slowly to the therapeutic range. 07/20/2024 the patient is here for a pulmonary follow-up visit. Overall he still has the same complaints. Still significant drowsiness. He has been using the CPAP in the CPAP therapy has been very affecting beneficial. His AHI is 1 below. His pressure settings are accurate and no further adjustments need to be made. The mask fitting is good and he does not have any significant air leakage. He has been under individuals small dose of 50 mg. at this point will incrsease to 100 mg. he understands that this is still a low dose but will slowly go enough to more therapeutic level. Recently he was evaluated at [facility] after developing stroke like symptoms. He was found to have critically elevated blood sugars. The patient was referred to endocrinology at [facility] and has an appointment next week. In the meantime he is going to continue with the current respiratory therapy. Will avoid prednisone because of his significant uncontrolled diabetes. [facility] Medical History (Updated 06/27/24 @ 11:11 by Christine De MD) Has daytime drowsiness Allergies History of anesthesia complications Family history of anesthesia complication Type 2 diabetes mellitus Murmur COPD (chronic obstructive pulmonary disease) Lumbar post-laminectomy syndrome Degenerative cervical spinal stenosis Neuropathic pain COVID-19 Chest pain Post herpetic neuralgia Pleuritic chest pain Obesity (BMI 30-39.9) Asthma Pneumonia SONY (obstructive sleep apnea) [id number] syndrome Reactive airway disease On beta mitra at home History of pneumonia Vitamin D deficiency Left nephrolithiasis Dyslipidemia Diabetic polyneuropathy associated with type 2 diabetes mellitus Hypogonadism Failed back syndrome of lumbar spine Arthritis Back pain GERD (gastroesophageal reflux disease) History of fatty infiltration of liver History of ADHD Depression Elevated cholesterol HTN (hypertension) CAD (coronary artery disease) History of 2019 novel coronavirus disease (COVID-19) Cervical radiculopathy Nephrolithiasis Surgical History (Updated 05/25/24 @ 14:55 by Robbie Ocampo MD) Hx of cardiac catheterization S/P cardiac catheterization History of kidney surgery Gynecomastia History of elbow surgery Hx laparoscopic cholecystectomy History of carpal tunnel release Hx of shoulder surgery Hx of arthroscopic knee surgery History of esophagogastroduodenoscopy (EGD) H/O colonoscopy Hx of lumbar discectomy Family History Father Diabetes Hypertension Myocardial infarction Mother Diabetes Stroke Alzheimers disease Pacemaker Brother Diabetes Heart problem Myocardial infarction Sister Myocardial infarction Maternal Grandmother Myocardial infarction Social History (Updated 06/19/24 @ 13:52 by Amy Conley CMA) Household Members: Spouse and Family Housing: Apartment Are you a primary health care technician to a significant other at home: No Do you presently have visiting nurse or other home services: No Alcohol intake: never Patient Tobacco Use Status: Never used Tobacco e-Cigarette/Vaping Use: Never Used Second Hand Smoke Exposure: No Advance Directives Date on File: 09/28/23 service: No Current occupational status: disabled Cognitive needs: No Hearing needs: No Vision needs: No Physical Exam Vital Signs: Last Vital Signs Pulse 60 07/20/24 10:36 BP 128/70 07/20/24 10:36 Pulse Ox 97 07/20/24 10:36 Oxygen Delivery Method Room Air 07/20/24 10:36 BMI result Body Mass Index 32.7 Office Procedures Flu Questionnaire Does the patient have a severe egg allergy?: No Does the patient have severe life threatening allergies?: No Does the patient have a fever or illness today?: No Has the patient ever had Guillain-Wymore Syndrome?: No Has the patient ever had any past reaction to a flu shot?: No Immunizations Fluarix Triv [id number] (PF) 45 mcg (15 mcg x 3)/0.5 mL IM syringe Performing Provider: Renato Saba MD Performing Location: [facility] [place] Pulmonology Services Administered by: Christine Angel LPN on 07/20/24 11:05 Dose Route Admin Location Dispensed Lot Number Expiration Date NDC Wrecker Driver 0.5 mL IM Left Deltoid 0.5 mL [id number] 04/01/25 [id number] [facility] Given Date VIS Provided VIS Publication Date 07/20/24 Single Vaccine 21 Eligibility Eligibility Date Funding Source Not [facility] Eligible 07/20/24 Private Assessment & Plan Assessment & Plan (1) SONY (obstructive sleep apnea): Code(s): G47.33 - Obstructive sleep apnea (adult) (pediatric) Category: Medical (2) [id number] syndrome: Code(s): B94.8 - Sequelae of other specified infectious and parasitic diseases Category: Medical (3) Asthma: Code(s): J45.909 - Unspecified asthma, uncomplicated Category: Medical Qualifiers: Asthma complication type: uncomplicated Asthma persistence: persistent Asthma severity: moderate Qualified Code(s): J45.40 - Moderate persistent asthma, uncomplicated (4) Has daytime drowsiness: Comment: even after effective APAP therapy with AHI 1.3 Code(s): R40.0 - Somnolence Category: Social Hx Plan continue Breztri BID short-acting beta agonist as needed nebulizer that he can use as needed lidoderm patch to the left sided neuropathy continue APAP therapy, medium F30i mask, stopped Azithromycin MWF increase Nuvigil 100, slowly increas to the effective dose F/U 3-4 months Orders: Orders Influenza [id number] Immunization 07/20/24 J45.40 - Moderate persistent asthma, uncomplicated Medications: Changed From armodafinil (Nuvigil) 50 mg PO QAM 30 days 30 tabs 3RF To armodafinil (Nuvigil) 100 mg (2 x 50 mg) PO QAM 60 tabs 3RF 30 days Coding Level of Care Code Est Pt Level 4 (16824) Diagnoses SONY (obstructive sleep apnea) G47.33 Mrfo-QOIME-20 syndrome B94.8 Moderate persistent asthma without complication J45.40 Asthma complication type: uncomplicated Asthma persistence: persistent Asthma severity: moderate Has daytime drowsiness R40.0 Time Spent (min) 16
== END 2024-07-20 11:08 | disposition home or self-care (01) ==
PROVIDERS: PCP Internal Medicine; Visit Provider Hospitalist
DX: G47.33 Obstructive sleep apnea (adult) (pediatric) (principal); B94.8 Sequelae of other specified infectious and parasitic diseases; J45.40 Moderate persistent asthma, uncomplicated; R40.0 Somnolence
CPT/HCPCS: 99214

== ENCOUNTER → 2024-07-20 10:11 | Outpatient (BNVA) | payer OTHER, SELFPAY | PROVIDERS: PCP Internal Medicine; Visit Provider Hospitalist | DX: Z23 Encounter for immunization (principal); J45.40 Moderate persistent asthma, uncomplicated; G47.33 Obstructive sleep apnea (adult) (pediatric); B94.8 Sequelae of other specified infectious and parasitic diseases; R40.0 Somnolence | CPT/HCPCS: 90471; 90656; 99212 ==

== ENCOUNTER 2024-07-26 08:02 | Outpatient (REF) | payer OTHER, SELFPAY ==
--- NOTE | ~2024-07-26 | MM_ITS ---
EXAMINATION: BONE DENSITOMETRY CLINICAL INDICATION: Osteopenia. COMPARISON: This is the patient's baseline examination. TECHNIQUE: Using a [employer] DXA System (software version: 13.1) manufactured by [employer], dual-energy x-ray absorptiometry was performed of the lumbar spine and left hip. The images are of good technical quality. Summary results are attached. FINDINGS: LEFT FEMUR, NECK: BMD 1.303 g/cm2, Z-score 2.2, T-score 1.8, normal. LEFT FEMUR, TOTAL: BMD 1.603 g/cm2, Z-score 3.5, T-score 3.5, normal. AP SPINE L1-L3 (excluding L4): The data of L1-L4 has been changed to exclude the L4 vertebral body, because hardware at this level may cause overestimation of lumbar spine density. BMD 1.903 g/cm2, Z-score 5.4, T-score 5.8, normal. IDENTIFIED RISK FACTORS: Renal, history of fracture (adult), family history (parent hip fracture). HISTORY OF FRACTURE: Hip, spine. MEDICATIONS: Calcium, vitamin D. MM/XR DEXA axial skeleton IMPRESSION: 1. DIAGNOSIS: Normal bone density based on the lowest T-score value of 1.8 in the femoral neck applying World Health Organization criteria. 2. 10-YEAR FRACTURE RISK PREDICTION, FRAX: According to the guidelines, FRAX calculation should only be performed on patients in the osteopenia bone density category. Therefore, FRAX was not performed on this patient. 3. Treatment Recommendations: NOF guidelines recommend consideration for treatment in postmenopausal women and men age 50 and older presenting with the following: -A hip or vertebral (clinical or morphometric) fracture. -T-score less than or equal to -2.5 at the femoral neck or spine after appropriate evaluation to exclude secondary causes. -Low bone mass at the hip or spine and a 10-year fracture probability by FRAX of greater than or equal to 3% for hip fracture or greater than or equal to 20% for major osteoporotic fracture based on the [place] adapted WHO algorithm. 4. Other Recommendations: All treatment decisions require clinical judgment and consideration of individual patient factors, including patient preferences, comorbidities, previous drug use, risk factors not captured in the FRAX model (e.g. frailty, falls, vitamin D deficiency, increased bone turnover, interval significant decline in bone density) and possible under or overestimation of fracture risk by FRAX. FUTURE SCAN RECOMMENDATION: People with diagnosed cases of osteoporosis or at high risk for fracture should have regular bone mineral density tests. For patients eligible for Medicare, routine testing is allowed once every 2 years. The testing frequency can be increased to one year for patients who have rapidly progressing disease, those who are receiving or discontinuing medical therapy to restore bone mass, or have additional risk factors. Electronically signed by: Antonio Ace MD 07/27/2024 03:17 PM EDT
== END 2024-07-26 08:03 | disposition home or self-care (01) ==
LOC: HO.MAMMO 08:02
PROVIDERS: PCP Internal Medicine; Visit Provider Internal Medicine
DX: M85.80 Other specified disorders of bone density and structure, unspecified site (principal)
CPT/HCPCS: 77080

== ENCOUNTER 2024-08-07 13:31 | Outpatient (AMB) | payer OTHER, SELFPAY ==
--- NOTE | 2024-08-07 13:53 | MHC.PC.OV ---
Vital Signs 08/07/24 13:58 Height 6 ft Weight 238 lb 6 oz BMI 32.3 BP 128/76 Blood Pressure Location Rt brachial Position Sitting Respiration 16 Pulse 66 Pulse Source Pulse Oximeter Pulse Oximetry (%) 95 Oxygen Delivery Method Room Air Intake Visit Reasons: Follow up DM Intake Note: Follow up diabetes. Having alot of lower back pain. Needs clarification on what diabetic medications he should be on. Random sugar checked at time of appt was 134 Allergies empagliflozin [From Jardiance] Allergy (Severe, Verified 08/07/24 13:53) Itching morphine [Morphine] Allergy (Severe, Verified 08/07/24 13:53) HIVES, THROAT CLOSES penicillin G [Penicillin G] Allergy (Severe, Verified 08/07/24 13:53) ANAPHYLAXIS Sulfa (Sulfonamide Antibiotics) [SULFA (SULFONAMIDE ANTIBIOTICS)] Allergy (Severe, Verified 08/07/24 13:53) ANAPHYLAXIS Gadolinium-Containing Contrast Medi [Gadolinium-Containing Agents] Allergy (Intermediate, Verified 08/07/24 13:53) Hives/Rash, dizziness, blue spots adhesive tape Adverse Reaction (Intermediate, Verified 08/07/24 13:53) Rash tramadol Adverse Reaction (Intermediate, Verified 08/07/24 13:53) Gastrointestinal Upset Tobacco use date assessed: 06/19/24 Dental Screening Dental Screen Date: 06/19/24 HPI HPI Comments History of Present Illness Details The patient is a 59 year old male with a past medical history of type 2 diabetes, hypertension, depression, gout, insomnia presenting for follow up DM: Uncontrolled. Was previously seeing endocrinology. On metformin 750mg twice daily. lantus 22 units, actos was started 2 wks ago. A1C one month ago 8.5 today. Started dexcom. I'm unable to view his 10 day information. Started a new sensor today. He was instructed to restart trulicity 1.5 one month ago but somehow this was miscommunicated and he did not receive the prescription CV: Follows with cardiology, Dr Ocampo. On lisinopril 10, amlodipine 5 daily (decreased from 10), toprol 25, crestor. Reports blood pressure has been fluctuating Rsp: Follows with pulmonary-Dr Saba. On dulera, azithromycin 3x/wk ROS CONSTITUTIONAL: Denies weight loss, fever and chills. HEENT: Denies changes in vision and hearing. RESPIRATORY: Denies SOB and cough. CV: Denies palpitations and CP GI: Denies abdominal pain, nausea, vomiting and diarrhea. : Denies dysuria and urinary frequency. MSK: Denies new myalgia and joint pain. SKIN: Denies rash and pruritus. NEUROLOGICAL: Denies headache PSYCHIATRIC: Denies recent changes in mood. PHYSICAL EXAM: GENERAL: Alert and oriented x 3. NAD EYES: EOMI. Anicteric. HENT: Moist mucous membranes. No scleral icterus. No cervical lymphadenopathy. LUNGS: Clear to auscultation bilaterally. CARDIOVASCULAR: Regular rate and rhythm. No murmur. No JVD. ABDOMEN: Soft, non-tender +bs EXTREMITIES: No edema. Non-tender. SKIN: No rashes or lesions. Warm. NEUROLOGIC: No focal neurological deficits. CN II-XII grossly intact PSYCHIATRIC: Cooperative. Appropriate mood and affect [facility] Medical History Has daytime drowsiness Allergies History of anesthesia complications Family history of anesthesia complication Type 2 diabetes mellitus Murmur COPD (chronic obstructive pulmonary disease) Lumbar post-laminectomy syndrome Degenerative cervical spinal stenosis Neuropathic pain COVID-19 Chest pain Post herpetic neuralgia Pleuritic chest pain Obesity (BMI 30-39.9) Asthma Pneumonia SONY (obstructive sleep apnea) [id number] syndrome Reactive airway disease On beta mitra at home History of pneumonia Vitamin D deficiency Left nephrolithiasis Dyslipidemia Diabetic polyneuropathy associated with type 2 diabetes mellitus Hypogonadism Failed back syndrome of lumbar spine Arthritis Back pain GERD (gastroesophageal reflux disease) History of fatty infiltration of liver History of ADHD Depression Elevated cholesterol HTN (hypertension) CAD (coronary artery disease) History of 2019 novel coronavirus disease (COVID-19) Cervical radiculopathy Nephrolithiasis Surgical History Hx of cardiac catheterization S/P cardiac catheterization History of kidney surgery Gynecomastia History of elbow surgery Hx laparoscopic cholecystectomy History of carpal tunnel release Hx of shoulder surgery Hx of arthroscopic knee surgery History of esophagogastroduodenoscopy (EGD) H/O colonoscopy Hx of lumbar discectomy Family History Father Diabetes Hypertension Myocardial infarction Mother Diabetes Stroke Alzheimers disease Pacemaker Brother Diabetes Heart problem Myocardial infarction Sister Myocardial infarction Maternal Grandmother Myocardial infarction Social History Household Members: Spouse and Family Housing: Apartment Are you a primary care transitions manager to a significant other at home: No Do you presently have visiting nurse or other home services: No Alcohol intake: never Patient Tobacco Use Status: Never used Tobacco e-Cigarette/Vaping Use: Never Used Second Hand Smoke Exposure: No Advance Directives Date on File: 09/28/23 service: No Current occupational status: disabled Cognitive needs: No Hearing needs: No Vision needs: No Questionnaire Thrive Questionnaire Date Thrive assessed: 06/17/24 I am a: Patient What is your living situation today?: I have a place to live, but I am worried about losing it in the future Within the past 12 months, did the food you bought not last and you didn't have the money to get more?: Often true Within the past 12 months, did you worry whether your food would run out before you got money to buy more?: Often true Do you have trouble paying for medicines?: No Do you have trouble getting transportation to medical appointments?: No Do you have trouble paying your heating and electricity bill?: No Do you have trouble taking care of your child, family member or friend?: No Do you have trouble with day-to-day activities such as bathing, preparing meals, shopping, managing finances, etc.?: No Are you currently unemployed and looking for a job?: No Are you interested in more education?: No Please select the resources that you would like help with: Food Currently or been in a relationship where the following occur: No concerns reported THRIVE Score: 3 OANH-7 AMB Questionnaire OANH-7 Date OANH - 7 assessed: 06/19/24 Source: Developed by Drs. Osvaldo Velasquez, Keyona Martinez, Luc Martinez and colleagues, with an educational jose from [employer]. Physical exam (Primary Care) Vital Signs: Last Vital Signs Pulse 66 08/07/24 13:58 Resp 16 08/07/24 13:58 BP 128/76 08/07/24 13:58 Pulse Ox 95 08/07/24 13:58 Oxygen Delivery Method Room Air 08/07/24 13:58 BMI result Body Mass Index 32.3 Tobacco/Smoking Status: Tobacco use Status Tobacco use date assessed 06/19/24 08/07/24 13:55 Patient Tobacco Use Status Never used Tobacco 08/07/24 13:55 e-Cigarette/Vaping Use Never Used 08/07/24 13:55 Thrive Assessment: Date of Thrive Assessment Date Thrive assessed 06/17/24 08/07/24 13:55 Currently or been in a relationship where the following occur: No concerns reported Coding Level of Care Code Est Pt Level 3 (23089) Diagnoses Type 2 diabetes mellitus with hyperglycemia, with long-term current use of insulin E11.65; Z79.4 Diabetes mellitus residential insulin use: with residential use Assessment & Plan Assessment & Plan (1) Type 2 diabetes mellitus with hyperglycemia: Code(s): E11.65 - Type 2 diabetes mellitus with hyperglycemia Category: Medical Qualifiers: Diabetes mellitus terminal operations manager insulin use: with terminal operations manager use Qualified Code(s): E11.65 - Type 2 diabetes mellitus with hyperglycemia; Z79.4 - rn long term care (current) use of insulin Plan: Patient will meet with life educator for CGM teaching He will restart trulicity as previously discussed He will return in 2 months Orders: Referrals Diabetes Education Referral E11.65 - Type 2 diabetes mellitus with hyperglycemia, Z79.4 - alf (current) use of insulin Medications: Refilled dulaglutide (Trulicity) 1.5 mg (0.5 mL) subcut QWEEK 2 mL 1RF
[2024-08-07 13:58] VITALS: BP 128/76; PULSE 66; RESP 16; O2SAT 95; BMI 32.3
== END 2024-08-07 14:25 | disposition home or self-care (01) ==
LOC: HO.HMCFM 13:32
PROVIDERS: PCP Internal Medicine; Visit Provider Internal Medicine
DX: E11.65 Type 2 diabetes mellitus with hyperglycemia (principal); Z79.4 Long term (current) use of insulin

== ENCOUNTER → 2024-08-07 13:31 | Outpatient (BNVA) | payer OTHER, SELFPAY | PROVIDERS: PCP Internal Medicine; Visit Provider Internal Medicine | DX: E11.65 Type 2 diabetes mellitus with hyperglycemia (principal); E11.42 Type 2 diabetes mellitus with diabetic polyneuropathy; Z79.4 Long term (current) use of insulin; Z79.84 Long term (current) use of oral hypoglycemic drugs | CPT/HCPCS: 99212 ==

== ENCOUNTER 2024-09-05 12:47 | Outpatient (AMB) | payer OTHER, SELFPAY ==
--- NOTE | 2024-09-05 12:59 | A.OFFVIS_ITS ---
Intake Intake Visit Reasons: Type 2 DM-confirmed Oncology Account Specialist Required: No Accompanied by: Self / Same As Patient Allergies empagliflozin [From Jardiance] Allergy (Severe, Verified 08/07/24 13:53) Itching morphine [Morphine] Allergy (Severe, Verified 08/07/24 13:53) HIVES, THROAT CLOSES penicillin G [Penicillin G] Allergy (Severe, Verified 08/07/24 13:53) ANAPHYLAXIS Sulfa (Sulfonamide Antibiotics) [SULFA (SULFONAMIDE ANTIBIOTICS)] Allergy (Sever e, Verified 08/07/24 13:53) ANAPHYLAXIS Gadolinium-Containing Contrast Medi [Gadolinium-Containing Agents] Allergy (Intermediate, Verified 08/07/24 13:53) Hives/Rash, dizziness, blue spots adhesive tape Adverse Reaction (Intermediate, Verified 08/07/24 13:53) Rash tramadol Adverse Reaction (Intermediate, Verified 08/07/24 13:53) Gastrointestinal Upset HPI Comprehensive Diabetes Asmnt Most Recent Diabetes Results: Microalb/Creat Ratio 15.9 ug/mg cr 11/10/20 Cholesterol 103 mg/dL 01/26/22 HDL Cholesterol 35 mg/dL 01/26/22 Triglycerides 97 mg/dL 01/26/22 Creatinine 0.85 mg/dL (0.5-1.4) 02/17/24 Blood Urea Nitrogen 11 mg/dL (9-16) 02/17/24 Sodium 138 mmol/L (135-145) 02/17/24 Potassium 3.9 mmol/L (3.3-5.1) 02/17/24 Chloride 106 mmol/L (96-108) 02/17/24 Carbon Dioxide 24 mmol/L (22-29) 02/17/24 Calcium 9.3 mg/dL (8.4-10.2) 02/17/24 AST 29 U/L (5-37) 05/23/23 ALT 44 U/L (0-40) H 05/23/23 Total Protein 7.4 g/dL (6.5-8.0) 05/23/23 Albumin 4.2 g/dL (3.5-5.0) 05/23/23 [facility] Medical History Has daytime drowsiness Allergies History of anesthesia complications Family history of anesthesia complication Type 2 diabetes mellitus Murmur COPD (chronic obstructive pulmonary disease) Lumbar post-laminectomy syndrome Degenerative cervical spinal stenosis Neuropathic pain COVID-19 Chest pain Post herpetic neuralgia Pleuritic chest pain Obesity (BMI 30-39.9) Asthma Pneumonia SONY (obstructive sleep apnea) [id number] syndrome Reactive airway disease On beta mitra at home History of pneumonia Vitamin D deficiency Left nephrolithiasis Dyslipidemia Diabetic polyneuropathy associated with type 2 diabetes mellitus Hypogonadism Failed back syndrome of lumbar spine Arthritis Back pain GERD (gastroesophageal reflux disease) History of fatty infiltration of liver History of ADHD Depression Elevated cholesterol HTN (hypertension) CAD (coronary artery disease) History of 2019 novel coronavirus disease (COVID-19) Cervical radiculopathy Nephrolithiasis Surgical History Hx of cardiac catheterization S/P cardiac catheterization History of kidney surgery Gynecomastia History of elbow surgery Hx laparoscopic cholecystectomy History of carpal tunnel release Hx of shoulder surgery Hx of arthroscopic knee surgery History of esophagogastroduodenoscopy (EGD) H/O colonoscopy Hx of lumbar discectomy Family History Father Diabetes Hypertension Myocardial infarction Mother Diabetes Stroke Alzheimers disease Pacemaker Brother Diabetes Heart problem Myocardial infarction Sister Myocardial infarction Maternal Grandmother Myocardial infarction Social History Household Members: Spouse and Family Housing: Apartment Are you a primary pet care technician to a significant other at home: No Do you presently have visiting nurse or other home services: No Alcohol intake: never Patient Tobacco Use Status: Never used Tobacco e-Cigarette/Vaping Use: Never Used Second Hand Smoke Exposure: No Advance Directives Date on File: 09/28/23 service: No Current occupational status: disabled Cognitive needs: No Hearing needs: No Vision needs: No Assessment & Plan Assessment & Plan (1) Diabetic polyneuropathy associated with type 2 diabetes mellitus: Code(s): E11.42 - Type 2 diabetes mellitus with diabetic polyneuropathy Plan: Personal Continuous Glucose Monitor: Patients CGM information reviewed, Pt uses Sensor data: Hypoglycemia: ?0% Hyperglycemia:? 62% Time in Range:38%? Average glucose for the last 2 weeks? 195 mg/dL Last A1c on 07/06/2024 8.5% Patient instructed at last visit with PCP to restart Trulicity 0.75 mg, at today's visit patient reports he has not restarted Trulicity because he was told to discontinue Trulicity before procedure he had on his shoulder. Patient also reported that he was hospitalized approximately 3 weeks ago with pancreatitis, I looked at patient's [facility] medical records, there was no mention of pancreatitis in patient's office notes. Message sent to PCP to clarify whether patient should be restarting Trulicity 0.75 mg weekly Patient also reports he has run out of Actos 30 mg, message sent to PCP to for prescriptions for Actos and Dexcom G7 sensor Learning objectives: The patient was provided with verbal and written education on the following topics as outlined below. Topics covered in today?s session included: Medications (If applicable) * Name of medication? * Dosing/administration instructions? * Mechanism of action? * Potential side effects? * Potential adverse reaction and appropriate treatment? * Review onset, peak, duration Assess for concerns re: insurance coverage, cost, barriers to compliance Insulin/Injectables (If applicable) * Storage/care of insulin?? * Injection sites? * Site rotation? * Onset, peak, duration * Drawing up insulin? * Injecting insulin/other injectables? * Sharps disposal Continuous blood glucose monitoring (if applicable) Hypoglycemia and Hyperglycemia * Signs and symptoms? * Causes?? * Treatment? * Preventing hypoglycemia? * When to seek medical attention Target Goals: * Blood glucose targets and how you feel when your blood glucose is in and out of your target ranges. * Monitoring and knowing your A1C. * What can make blood glucose go up and down and preventing high and low blood glucose. * Review of blood sugar targets in expected goal range and outside of expected goal range. * Problem solving and preventing hyper/hypoglycemia. * Sick day management of diabetes. * Using blood sugar results in decision making process in managing diabetes. ?Patient was receptive to information provided and participated in the discussion. Asked?appropriate questions and demonstrated good understanding of the topics discussed.? ? Patient able to insert sensor independently at home without issue.? Portions of this note were created using voice recognition software, please excuse any words or phrases that may have been misinterpreted. Coding Level of Care Code Est Pt Level 1 (37461) Diagnoses Diabetic polyneuropathy associated with type 2 diabetes mellitus E11.42
--- OUTSIDE RECORDS SUMMARY | 2024-09-11 19:15 | XMS_ITS ---
Author Organization [facility] Address [address] [place] [address] Care Team Providers Care Demolition Expert Name Role Phone Lani Oswald Primary Care Provider Unavailabl e Black, Margarita Unavailable [phone] REASON FOR VISIT No show Encounters Encounter Location Date Provider Diagnosis [facility] [address] [place] [address] 04/14/2023 Margarita Black Plan Of Treatment No Information Progress Notes * Mohit BENNETTDOB: [birth year] (58 yo M)Acc No.[id number]:04/14/2023 Patient:?Mohit Bennett :1965???Age:58 Y???Sex:Male Address:[address] [place] [address]. [address], [place], [address] * true * Date:? Generated for Bobby duffy/Armen/eTransmitting on:?09/11/2024 07:15 PM EST
--- OUTSIDE RECORDS SUMMARY | 2024-09-11 19:16 | XMS_ITS | Patient Health Record ---
[facility] Address [address] [place] [address] Care Team Providers Care Marketing Assistant Retail Division Name Role Phone Darek Lani Primary Care Provider Unavailabl e Black, Maragrita Unavailable [phone] Allergies Allergen (clinical drug ingredient) Drug/Non Drug Allergy documented on EMR Reaction Allergy Type Onset Date Status amoxicillin Amoxicillin hives,swelling throat Drug Allergy Active aspirin Aspirin Unknown Drug Allergy Active sulfamethoxazole / trimethoprim Bactrim swollen eyes Drug Allergy Active morphine Morphine Sulfate hives, trouble breathing, fainting Drug Allergy Active Adhesive rash Allergy Active Iodine hives,swelling, trouble breathing Drug Allergy Active Reason For Referral No Information Medications Medication SIG (Take, Route, Frequency, Duration) Notes Start Date End Date Status Ciclopirox Olamine 0.77 % 1 application Externally Once a day for 30 days 09/23/2022 Active Ciclopirox 8 % 1 application Externally Once a day for 30 days 01/08/2021 Active Ciclopirox Olamine 0.77 % 1 application Externally Twice a day for 30 days 01/08/2021 Active Methylphenidate HCl 10 MG 1 tablet on em pty stomach Orally Twice a day Not-Taking Lyrica 150 MG 1 capsule Orally Once a day Not-Taking Ciclopirox Olamine 0.77 % 1 application Externally Twice a day for 30 days 02/04/2020 Active Diclofenac Sodium 3 % 1 application Transdermal Twice a day for 30 day(s) 02/04/2020 Active ASO Ankle/Foot Stablizing AFO As directed Wear Daily for as needed 03/31/2020 Active Tamsulosin HCl Activ e Metoprolol Tartrate 50 MG 1 tablet with food Orally Twice a day for 30 day(s) Active Fenofibrate 160 MG 1 tablet with food Orally Once a day for 30 day(s) Active Atorvastatin Calcium 80 MG 1 tablet Orally Once a day for 30 day(s) Active Naproxen 500 MG 1 tablet Orally Twice a day for 30 day(s) Not-Taking dexAMETHasone 4 MG 1 tablet Orally Twice a day for 30 day(s) Not-Taking Lopressor 50 MG 1 tablet with food Orally Twice a day for 30 day(s) Not-Taking hydroCHLOROthiazide 12.5 MG 1 capsule in the morning Orally Once a day for 30 day(s) Not-Taking FLUoxetine HCl 20 MG 1 capsule Orally Once a day for 30 day(s) 1 capsule on odd days, 2 capsules on even days Active metFORMIN HCl ER 750 MG 1 tablet with evening meal Orally Once a day for 30 day(s) Active Losartan Potassium 50 MG 1 tablet Orally Once a day for 30 day(s) Active Pregabalin 150 MG 1 capsule Orally Once a day Active Lantus Active NovoLOG Active Albuterol Sulfate Ac tive Ranitidine 1 tab Oral Active Umeclidinium [place] 62.5 MCG/INH 1 puff Inhalation Once a day Active Immunizations Vaccine Route Administration Date Status Comme nts Influenza Unknown 07/03/2019 Administered Influenza Unknown 07/10/2020 Administered Social History Tobacco Use: Social History Observation Description Date Details (start date - stop date) Never Smoker NA - NA Tobacco Use/Smoking Question Answer Notes Are you a: nonsmoker Alcohol Screen Question Answer Notes Did you have a drink containing alcohol in the p ast year? No Points 0 Interpretation Negative Tobacco use other than smoking: Question Answer Notes Are you an other tobacco user? 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 Plan Of Treatment Pending Test Test Name Order Date [id number] NAIL, 6 OR MORE 07/10/2020 [id number] NAIL, 6 OR MORE 01/08/2021 [id number] NAIL, 6 OR MORE 04/13/2021 [id number] NAIL, 6 OR MORE 09/07/2021 [id number] NAIL, 6 OR MORE 12/17/2021 [id number] NAIL, 6 OR MORE 03/22/2022 [id number] NAIL, 6 OR MORE 06/24/2022 [id number] NAIL, 6 OR MORE 09/23/2022 [id number] NAIL, 6 OR MORE 12/30/2022 46264-Yekt Destruction, 1-14 12/30/2022 [id number]-Xwrv Destruction, 1-14 09/23/2022 68479, J0702- INJECT or DRAIN, JOINT/BUR SA 12/17/2021 [id number] SKIN LESIONS, 2 TO 4 06/24/20 [id number] SKIN LESIONS, 2 TO 4 12/31/19 [id number] SKIN LESIONS, 2 TO 4 09/23/20 84236, [id number]-YUGXF/INJECT, JOINT/BURSA 0 11/12/2019 37333, [id number]-IGTZK/INJECT, JOINT/BURSA 0 03/22/2022 X ray : Ankle, right 3V 12/17/2021 Insurance Providers Payer Name Payer Address Payer Phone Subscriber Number Group Number Insured Name Patient Relationship to Insured Coverage Start Date Coverage End Date [facility] [employer] Claims [address] [place] [id number] [phone] [id number] Mohit Segovia Self - patient is the insured Medical (General) History Medical History History ICD Code type II diabetes Hypertension Hyperlipidemia Lumbar disc disease Degenerative Disc disease Depression Fibromyalgia Gastritis Carpal tunnel Sleep apnea Cholelithiasis ADHD CAD ( Coronary Artery Disease) Erectile dysfunction nonalcoholic fatty liver disease (NAFLD) Back,Hip,and Knee pain Cholesterol Arthritis Liver disease Kidney disease Chicken pox Stomach ulcer Heart disease Joint implants/screws asthma Surgical History Surgery Date(Month/Year) endoscopy upper and lower back surgery right carpal tunnel 2012 lumbar discectomy 2002 Arthroscopic shoulder Sx 2018 Right elbow 2011 cardiac catheterization left shoulder 2019 Disk 2005 gall bladder 11/07/2019 Hospitalization History Reason Date(Month/Year) [facility] 06/24
--- OUTSIDE RECORDS SUMMARY | 2024-09-11 19:16 | XMS_ITS ---
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 Name Role Phone Darek Lani Primary Care Provider Unavailabl e Black, Margarita Unavailable [phone] Medications Medication SIG (Take, Route, Frequency, Duration) Notes Start Date End Date Status Naproxen 500 MG 1 tablet Orally Twice a day for 30 day(s) Not-Taking dexAMETHasone 4 MG 1 tablet Orally Twice a day for 30 day(s) Not-Taking Lopressor 50 MG 1 tablet with food Orally Twice a day for 30 day(s) Not-Taking hydroCHLOROthiazide 12.5 MG 1 capsule in the morning Orally Once a day for 30 day(s) Not-Taking Ciclopirox Olamine 0.77 % 1 application [...] 1 capsule Orally Once a day Not-Taking Tamsulosin HCl Activ e Ciclopirox Olamine 0.77 % 1 application Externally Twice a day for 30 days 02/04/2020 Active Diclofenac Sodium 3 % 1 application Transdermal Twice a day for 30 day(s) 02/04/2020 Active ASO Ankle/Foot Stablizing AFO As directed Wear Daily for as needed 03/31/2020 Active Metoprolol Tartrate 50 MG 1 tablet with food Orally Twice a day for 30 day(s) Active Fenofibrate 160 MG 1 tablet with food Orally Once a day for 30 day(s) Active Atorvastatin Calcium 80 MG 1 tablet Orally Once a day for 30 day(s) Active FLUoxetine HCl 20 MG 1 capsule Orally [...] tive Ranitidine 1 tab Oral Active Umeclidinium [place] 62.5 MCG/INH 1 puff Inhalation Once a day Active Social History Tobacco Use: Social History Observation [...] Are you an other tobacco user? No Encounters Encounter Location Date Provider Diagnosis [facility] [address] [address] 04/14/2023 Margarita Alonso Plan Of Treatment No Information Progress Notes * Mohit BENNETTDOB: [birth year] (59 yo M)Acc No.[id number]:04/14/2023 Progress Note Patient:?BENNETT, Mohit Provider:?Margarita Alonso DPM :1965???Age:58 Y???Sex:Male Humberto e:04/14/2023 Address:[address] [place] [id number] Pcp:Lani Oswald Subjective: * Chief Complaints: * ??? * Medical History:? * Social History:?Tobacco Use:?Tobacco Use/Smoking?Are you a:?nonsmoker ?Tobacco use other than smoking?Are you an other tobacco user??No ???Drugs/Alcohol:?Drugs?Have you used drugs other than those for medical reasons in the past 12 months??No ?Alcohol Screen?Did you have a drink containing alcohol in the past year??No ?Points?0 ?Interpretation?Negative ???Miscellaneous:?Caffeine: yes, 1-2 cups per day. ?Children: yes, 2. ?Exercise: yes, walking. ?Marital status: . 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 * Medications:?Taking Umeclidi nium [place] 62.5 MCG/INH Aerosol Powder Breath Activated 1 puff Inhalation Once a day , Taking Lantus , Taking NovoLOG , Taking Albuterol Sulfate , Taking Ranitidine 1 tab Oral , Taking FLUoxetine HCl 20 MG Capsule 1 capsule Orally Once a day , Notes to Pharmacist: 1 capsule on odd days, 2 capsules on even days, Taking metFORMIN HCl ER 750 MG Tablet Extended Release 24 Hour 1 tablet with evening meal Orally Once a day , Taking Losartan Potassium 50 MG Tablet 1 tablet Orally Once a day , Taking Pregabalin 150 MG Capsule 1 capsule Orally Once a day , Taking Atorvastatin Calcium 80 MG Tablet 1 tablet Orally Once a day , Taking Metoprolol Tartrate 50 MG Tablet 1 tablet with food Orally Twice a day , Taking Fenofibrate 160 MG Tablet 1 tablet with food Orally Once a day , Taking Ciclopirox Olamine 0.77 % Cream 1 application Externally Twice a day , Taking Diclofenac Sodium 3 % Gel 1 application Transdermal Twice a day , Taking ASO Ankle/Foot Stablizing AFO As directed Wear Daily , Taking Tamsulosin HCl , Taking Ciclopirox 8 % Solution 1 application Externally Once a day , Taking Ciclopirox Olamine 0.77 % Cream 1 application Externally Twice a day , Taking Ciclopirox Olamine 0.77 % Cream 1 application Externally Once a day , Not-Taking/PRN Methylphenidate HCl 10 MG Tablet 1 tablet on empty stomach Orally Twice a day , Not-Taking/PRN Lyrica 150 MG Capsule 1 capsule Orally Once a day , Not-Taking/PRN Naproxen 500 MG Tablet Delayed Release 1 tablet Orally Twice a day , Not-Taking/PRN dexAMETHasone 4 MG Tablet 1 tablet Orally Twice a day , Not-Taking/PRN Lopressor 50 MG Tablet 1 tablet with food Orally Twice a day , Not-Taking/PRN hydroCHLOROthiazide 12.5 MG Capsule 1 capsule in the morning Orally Once a day Objective: * Vitals:? Assessment: Plan: * Treatment: * Images: * The named appointment provid er may or may not be the originator of this progress note, and it is not deemed complete until electronically signed by the appointment provider. Sign off status: Pending * Provider:?Margarita Alonso DPM Date:?2022 Generated for Bobby duffy/Armen/Jennifer on:?09/11/2024 07:15 PM EST
== END 2024-09-05 13:57 | disposition home or self-care (01) ==
PROVIDERS: PCP Internal Medicine; Visit Provider Registered Nurse Diabetes Educator
DX: E11.42 Type 2 diabetes mellitus with diabetic polyneuropathy (principal)

== ENCOUNTER → 2024-09-05 12:47 | Outpatient (BNVA) | payer OTHER, SELFPAY | PROVIDERS: PCP Internal Medicine; Visit Provider Registered Nurse Diabetes Educator | DX: E11.42 Type 2 diabetes mellitus with diabetic polyneuropathy (principal) | CPT/HCPCS: 99211 ==

== ENCOUNTER 2024-10-12 10:37 | Outpatient (AMB) | payer OTHER, SELFPAY ==
--- NOTE | 2024-10-12 10:41 | MHC.OFFVIS ---
Vital Signs 10/12/24 10:42 Height 6 ft Weight 238 lb BMI 32.3 Intake Visit Reasons: OV - Right Rotator Cuff Tear Intake Note: Mohit is a 59 year old right hand dominant male who presents today for a follow up hand right shoulder. Patient was previously booked for Right RTC 10/05/23 - this was cancelled as the patient was sick. He presents [facility] to [facility]. Allergies empagliflozin [From Jardiance] Allergy (Severe, Verified 10/12/24 10:42) Itching morphine [Morphine] Allergy (Severe, Verified 10/12/24 10:42) HIVES, THROAT CLOSES penicillin G [Penicillin G] Allergy (Severe, Verified 10/12/24 10:42) ANAPHYLAXIS Sulfa (Sulfonamide Antibiotics) [SULFA (SULFONAMIDE ANTIBIOTICS)] Allergy (Severe, Verified 10/12/24 10:42) ANAPHYLAXIS Gadolinium-Containing Contrast Medi [Gadolinium-Containing Agents] Allergy (Intermediate, Verified 10/12/24 10:42) Hives/Rash, dizziness, blue spots adhesive tape Adverse Reaction (Intermediate, Verified 10/12/24 10:42) Rash tramadol Adverse Reaction (Intermediate, Verified 10/12/24 10:42) Gastrointestinal Upset HPI HPI OV - Right Rotator Cuff Tear: Details: Mohit returns today after having lost significant weight and more healthy than he was in the past. He had previously been scheduled for rotator cuff repair but was canceled because of initially cardiac reasons and then illness. He continues, however, to have right shoulder pain. He has difficulty getting dressed and difficulty engaging in daily activities. He has a known rotator cuff tear on the right. [facility] Medical History Has daytime drowsiness Allergies History of anesthesia complications Family history of anesthesia complication Type 2 diabetes mellitus Murmur COPD (chronic obstructive pulmonary disease) Lumbar post-laminectomy syndrome Degenerative cervical spinal stenosis Neuropathic pain COVID-19 Chest pain Post herpetic neuralgia Pleuritic chest pain Obesity (BMI 30-39.9) Asthma Pneumonia SONY (obstructive sleep apnea) [id number] syndrome Reactive airway disease On beta mitra at home History of pneumonia Vitamin D deficiency Left nephrolithiasis Dyslipidemia Diabetic polyneuropathy associated with type 2 diabetes mellitus Hypogonadism Failed back syndrome of lumbar spine Arthritis Back pain GERD (gastroesophageal reflux disease) History of fatty infiltration of liver History of ADHD Depression Elevated cholesterol HTN (hypertension) CAD (coronary artery disease) History of 2019 novel coronavirus disease (COVID-19) Cervical radiculopathy Nephrolithiasis Surgical History Hx of cardiac catheterization S/P cardiac catheterization History of kidney surgery Gynecomastia History of elbow surgery Hx laparoscopic cholecystectomy History of carpal tunnel release Hx of shoulder surgery Hx of arthroscopic knee surgery History of esophagogastroduodenoscopy (EGD) H/O colonoscopy Hx of lumbar discectomy Family History Father Diabetes Hypertension Myocardial infarction Mother Diabetes Stroke Alzheimers disease Pacemaker Brother Diabetes Heart problem Myocardial infarction Sister Myocardial infarction Maternal Grandmother Myocardial infarction Social History Household Members: Spouse and Family Housing: Apartment Are you a primary child adolescent care to a significant other at home: No Do you presently have visiting nurse or other home services: No Alcohol intake: never Patient Tobacco Use Status: Never used Tobacco e-Cigarette/Vaping Use: Never Used Second Hand Smoke Exposure: No Advance Directives Date on File: 09/28/23 service: No Current occupational status: disabled Cognitive needs: No Hearing needs: No Vision needs: No Physical Exam Vital Signs: BMI result Body Mass Index 32.3 Const General: no acute distress, alert and awake Orientation/consciousness: patient oriented x3 HEENT Head: Yes normocephalic and Yes atraumatic Eyes EOM: EOMs intact bilaterally Resp Effort & Inspection: normal respiratory effort and able to speak in complete sentences Cardio Jugular venous distension: no JVD Skin General skin exam: turgor normal Rashes: no rashes Neuro General: patient oriented x3 Extrem Other: Right Shoulder: + H&N 4+/5 empty can Pain with liftoff + O'richi's Psych Appearance: grossly normal Affect: normal affect Attitude: cooperative Results Reviewed Results Reviewed: I personally reviewed the MR images. 1. Mild abnormality of the supraspinatus and subscapularis compatible with tendinosis and perhaps small areas of partial tearing but no measurable defect or tendon retraction. 2. Mild arthrosis of the acromioclavicular joint. Assessment & Plan Assessment & Plan (1) Right rotator cuff tear: Code(s): M75.101 - Unspecified rotator cuff tear or rupture of right shoulder, not specified as traumatic Category: Medical Qualifiers: Rotator cuff tear extent: unspecified tear extent Rotator cuff tear trauma status: unspecified whether traumatic Qualified Code(s): M75.101 - Unspecified rotator cuff tear or rupture of right shoulder, not specified as traumatic Plan: This is a 59-year-old with a rotator cuff tear of the right shoulder. He has tried physical therapy, injections as well as Tylenol and none narcotic medication for pain. He can not tolerate NSAIDs. None of this has helped and he has had ongoing right shoulder dysfunction for over 2 years. Surgeries have been canceled in the past because of hypertension an illness and cardiac issues that have been resolved. He has is healthy as he has ever been but continues to have shoulder pain. I do think he will require medical clearance but I think he is optimized to undergo shoulder arthroscopy likely rotator cuff repair. I discussed the surgery with him in detail including, but not limited to, the risk of infection, stiffness, need for further surgery, incomplete symptom resolution as well as medical complications associated with surgery and anesthesia. I discussed with him the benefits and the alternatives as well. He expressed understanding and we will proceed forward accordingly. Coding Level of Care Code Est Pt Level 4 (29439) Diagnoses Tear of right rotator cuff, unspecified tear extent, unspecified whether traumatic M75.101 Rotator cuff tear extent: unspecified tear extent Rotator cuff tear trauma status: unspecified whether traumatic
[2024-10-12 10:42] VITALS: BMI 32.3
--- OUTSIDE RECORDS SUMMARY | 2024-10-12 10:50 | XMS_ITS | Continuity of Care Document ---
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 Name Role Phone Christine De MD Primary Care Physician [id number] Date[facility]s): 08/29/24 - 09/28/24 [facility] [address] [place] [phone]- Attending Physician: Myriam Morris MD Admitting Physician: Myriam Morris MD Referring Physician: Christine De MD Encounter Type: Pre-OutPatient One Time Allergies, Adverse Reactions, Alerts Substance Criticality Severity Reaction Reaction Severity Status morphine Active Other Food Allergy 1 Active Jardiance Active penicillins 2 Active sulfa drugs Active Contrast Dye Active traMADol Active 1Red Meats 2Tolerates ceftriaxone Medications albuterol CFC free 90 mcg/inh inhalation aerosol 2, puffs, Inhalation, Every 6 hours, PRN, # 8 Gm, Refills 0, Maintenance, 02/10/22 2:10:00 PM EDT, Aerosol Start Date: 02/10/22 Status: Ordered Quantity: 8.0 Unit: g Repeat number: 1 Alcohol Pads See Instructions, # 400 each, Refills 4, Tot. Refills 4, Maintenance, use before each injection of insulin, up to 4 times a day, 09/20/24 2:30:00 PM EST, Supply, 183, cm, 09/20/24 13:42:00 EST, Height, 110, kg, 08/29/24 14:11:00 EST, Dry Weight Start Date: 09/20/24 Stop Date: 02/17/25 Status: Ordered Quantity: 400.0 Unit: each Repeat number: 5 Allopurinol 100 mg, By Mouth, Daily, Refills 0, Maintenance, 04/05/21 5:45:00 PM EDT, Partial fill upon patient request if the prescription is for a schedule II opioid drug. Start Date: 04/05/21 Status: Ordered Repeat number: 1 amLODIPine 5 mg oral tablet 5 mg, 1, tablet, By Mouth, Daily, Refills 0, Maintenance, 05/16/24 2:13:00 PM EDT, Partial fill uponpatient request if the prescription is for a schedule II opioid drug. Start Date: 05/16/24 Status: Ordered Repeat number: 1 Aspirin Low Dose 81 mg oral delayed release tablet 1 tablet = 81 mg, 0 Refills, Maintenance, 05/16/24 2:11:00 PM EDT, Partial fill upon patient requestif the prescription is for a schedule II opioid drug. Start Date: 05/16/24 Status: Ordered Repeat number: 1 DexCom G7 Health Facilities Surveyor DexCom G7 Health Facilities Surveyor, See Instructions, # 1 each, Refills 0, Tot. Refills 0, Maintenance, use to monitor blood sugar continuously and use with Dexcom G7 sensors E11.9, 08/27/24 4:36:00 PM EST, aware needs a PA, PA has been initiated, Supply, 183, cm, 08/23/24 14:10:00 EST, Height, 93, kg, 05/31/24 10:43:00 EDT, Dry Weight Start Date: 08/27/24 Status: Ordered Quantity: 1.0 Unit: each Repeat number: 1 DexCom G7 sensors DexCom G7 sensors, See Instructions, # 9 each, Refills 4, Tot. Refills 4, Maintenance, use to continuously monitor blood sugar and change sensor every 10 days E11.9, 08/24/24 5:08:00 PM EST, replacing Dexcom G6, aware PA required, initiated, Supply, 183, cm, 08/23/24 14:10:00 EST, Height, 93, kg, 05/31/24 10:43:00 EDT, Dry Weight Start Date: 08/24/24 Status: Ordered Quantity: 9.0 Unit: each Repeat number: 5 Dulera 200 mcg-5 mcg/inh inhalation aerosol 2 puffs, Inhalation, 2 times a day, 0 Refills, Maintenance, 06/12/24 1:18:00 PM EDT, Aerosol, Partial fill upon patient request if the prescription is for a schedule II opioid drug. Start Date: 06/12/24 Status: Ordered Repeat number: 1 ezetimibe 10 mg oral tablet 1 tablet = 10 mg, By Mouth, Daily, # 30 tablet, 0 Refills, Maintenance, 01/02/20 1:45:00 PM EDT, Tablet Start Date: 01/02/20 Status: Ordered Quantity: 30.0 Unit: tablet Repeat number: 1 FLUoxetine 20 mg oral capsule 40 mg, 2, capsule, By Mouth, Daily, # 60 capsule, Refills 0, Maintenance, 06/21/17 7:48:08 PM EDT Start Date: 06/21/17 Status: Ordered Quantity: 60.0 Unit: capsule Repeat number: 1 Golytely - oral powder for reconstitution See Instructions, Per instructions from GI., # 4,000 mL, 0 Refills, Maintenance, 08/28/24 6:45:00 PM EST, [facility] #[id number], Partial fill upon patient request if the prescription is for a schedule II opioid drug., Per instructions from GI., 183, cm, 08/28/24 15:05:00 EST, Height, 93, kg, 05/31/24 10:43:00 EDT, Dry Weight Start Date: 08/28/24 Status: Ordered Quantity: 4000.0 Unit: mL Repeat number: 1 Indication: Encounter for screening for malignant neoplasm of colon Kenny Apple Pen 100 units/mL subcutaneous solution = 26 units, Subcutaneous Injection, Daily at bedtime, rotate injection sites, # 15 mL, 11 Refills, Maintenance, 09/20/24 2:28:00 PM EST, Solution, [facility] #[id number], increased dose, 183, cm,09/20/24 13:42:00 EST, Height, 110, kg, 08/29/24 14:11:00 EST, Dry Weight Start Date: 09/20/24 Status: Ordered Quantity: 15.0 Unit: mL Repeat number: 12 lisinopril 20 mg oral tablet 20 mg, 1, tablet, By Mouth, Daily, # 30 tablet, Refills 0, Tot. Refills 0, Maintenance, 07/19/24 1:31:00 PM EDT, Route to Pharmacy Electronically, [facility] #[id number], Partial fill upon patient request if the prescription is for a schedule II opioid drug., 183, cm, 07/19/24 12:56:00 EDT, Height, 93, kg, 05/31/24 10:43:00 EDT, Dry Weight Start Date: 07/19/24 Status: Ordered Quantity: 30.0 Unit: tablet Repeat number: 1 Lyrica 50 mg oral capsule 3 capsules, By Mouth, Daily, 0 Refills, Maintenance, 06/21/17 7:44:46 PM EDT Start Date: 06/21/17 Status: Ordered Repeat number: 1 Lyumrobsonv KwikPen 100 units/mL injectable solution = 8 units, Subcutaneous Injection, 3 times a day with meals, at the start of a meal or within 20 minutes after starting a meal, # 15 mL, 11 Refills, Maintenance, 09/20/24 5:00:00 PM EST, Solution, [facility] #[id number], Partial fill upon patient request if the prescription is for a schedule IIopioid drug., 183, cm, 09/20/24 13:42:00 EST, Height, 110, kg, 08/29/24 14:11:00 EST, Dry Weight Start Date: 09/20/24 Status: Ordered Quantity: 15.0 Unit: mL Repeat number: 12 MetFORMIN (Eqv-Glucophage XR) 500 mg oral tablet, extended release 2 tablet = 1,000 mg, By Mouth, 2 times a day, # 360 tablet, 4 Refills, Maintenance, 09/20/24 2:29:00 PM EST, [facility] #[id number], increased dose, replacing metformin 750 mg. please dispense generic metformin ER 500 mg, 183, cm, 09/20/24 13:42:00 EST, Height, 110, kg, 08/29/24 14:11:00 EST, Dry Weight Start Date: 09/20/24 Status: Ordered Quantity: 360.0 Unit: tablet Repeat number: 5 metoprolol 50 mg oral tablet 50 mg, 1, tablet, By Mouth, 2 times a day, # 180 tablet, Refills 0, Maintenance, 01/02/20 1:45:00 PM EDT Start Date: 01/02/20 Status: Ordered Quantity: 180.0 Unit: tablet Repeat number: 1 omeprazole 40 mg oral enteric coated capsule 1 capsule = 40 mg, By Mouth, 2 times a day, 30 min before a meal, # 60 capsule, 3 Refills, Maintenance, 09/12/23 10:39:00 AM EST, [facility] #[id number], Partial fill upon patient request if the prescription is for a schedule II opioid drug., 182.8, cm, 09/07/23 10:08:00 EST, Height, 90, kg, 02/19/23 12:28:00 EDT, Dry Weight Start Date: 09/12/23 Status: Ordered Quantity: 60.0 Unit: capsule Repeat number: 4 Indication: Gastro-esophageal reflux disease without esophagitis ondansetron 4 mg oral tablet, disintegrating 1 tablet = 4 mg, By Mouth, Every 6 hours, PRN Nausea & Vomiting, # 12 tablet, 0 Refills, Maintenance, 06/12/24 1:18:00 PM EDT, Tablet, Partial fill upon patient request if the prescription is for a schedule II opioid drug. Start Date: 06/12/24 Status: Ordered Quantity: 12.0 Unit: tablet Repeat number: 1 Pen [place], 32 G x 4 mm BD Ultra Fine III See instructions, # 400 each, Refills 4, Tot. Refills 4, Maintenance, use to inject insulin 4 timesa day E11.9, 09/20/24 2:37:00 PM EST, Supply, 183, cm, 09/20/24 13:42:00 EST, Height, 110, kg, 08/29/24 14:11:00 EST, Dry Weight Start Date: 09/20/24 Stop Date: 12/14/25 Status: Ordered Quantity: 400.0 Unit: each Repeat number: 5 pioglitazone 30 mg oral tablet 1 tablet = 30 mg, By Mouth, Daily, # 90 tablet, 0 Refills, Maintenance, 09/20/24 2:33:00 PM EST, Tablet, Partial fill upon patient request if the prescription is for a schedule II opioid drug. Start Date: 09/20/24 Status: Ordered Quantity: 90.0 Unit: tablet Repeat number: 1 tamsulosin 0.4 mg oral capsule 0.4 mg, 1, capsule, By Mouth, Daily, TAKE 1 CAPSULE BY MOUTH EVERY DAY Start Date: 04/19/21 Status: Ordered Repeat number: 1 Ventolin HFA 108 mcg/inh inhalation aerosol with adapter 1 puffs, Inhalation, Every 6 hours, PRN for wheezing, # 18 Gm, 0 Refills, Maintenance, 02/10/22 2:09:00 PM EDT, Aerosol, Partial fill upon patient request if the prescription is for a schedule II opioid drug. Start Date: 02/10/22 Status: Ordered Quantity: 18.0 Unit: g Repeat number: 1 Vitamin D3 2000 intl units oral capsule 1 capsule = 2,000 International_Units, By Mouth, Daily, # 60 capsule, 0 Refills, Maintenance, 04/05/21 5:44:00 PM EDT, Capsule, Partial fill upon patient request if the prescription is for a schedule II opioid drug. Start Date: 04/05/21 Status: Ordered Quantity: 60.0 Unit: capsule Repeat number: 1 Problem List Condition Confirmation Course Effective Dates Status H ealth Status Informant COVID-19 1 Confirmed 05/19/22 Active Diabetes mellitus Confirmed Active GERD (gastroesophageal reflux disease) Confirmed Active Hyperlipidemia Confirmed Active Hypertension Confirmed Active Obese class I Confirmed Active SONY on CPAP Confirmed Active PTSD (post-traumatic stress disorder) Confirmed Active 1Problem added by Discern Expert Social History Social History Type Response Smoking Status Never (less than 100 in lifetime) entered on: 11/09/20 Sex Sex Representation Male (finding) Patient Care team information Care Team Personnel Name: Antelmo Andrade RN Position: [facility] RN Member Role: Primary Care Nurse Name: Capri Branch RN Position: [facility] RN Member Role: Primary Care Nurse Name: Opal Barker RN Position: S RN Member Role: Primary Care Nurse Name: Shahnaz Lema RN Position: [facility] RN Member Role: Primary Care Nurse Name: Christine De MD Position: Reference Physician Member Role: PCP Address: [address] [place] [id number] Telecom: Name: Aren Hoskins MD Position: S Outreach Member Role: Lifetime Consulting Physician Address: [address] [place] [address] [address] [facility] [place], [place] [address] Telecom: Name: Wen Junior RN Position: [facility] RN Member Role: Primary Care Nurse Name: Татьяна Lane LPN Position: [facility] RN Member Role: Primary Care Nurse Care Team Related Persons Name: BREANN ROTH Name: CASPER BENNETT Insurance Providers Guarantor name: [facility] Health Plan Information #: 1 Payer: [facility] CARE [employer]IANCE/ONE CARE Member Number: [id number] Policy Number: NA Group Number: [facility] Expa Plan Information #: 2 Payer: [facility]ONE CARE Member Number: [id number] Policy Number: NA Group Number: NA
--- OUTSIDE RECORDS SUMMARY | 2024-10-12 10:50 | XMS_ITS | Continuity of Care Document ---
Author Organization [facility] Address [address] [place] [address]- Care Team Providers Care Earthmoving Labourer Name Role Phone Santino KRAUSE, Christine Gutierrez Primary Care Physician Encounter [facility] [place] Date(s): 08/20/24 - 09/19/24 [facility] [address] [place] [address]- Encounter Type: Triage Allergies, Adverse Reactions, Alerts Substance Criticality Severity Reaction Reaction Severity Status morphine Active penicillins 1 Active sulfa drugs Active Contrast Dye Active Other Food Allergy 2 Active traMADol Active Jardiance Active 1Tolerates ceftriaxone 2Red Meats Medications albuterol CFC free 90 mcg/inh inhalation aerosol 2, puffs, Inhalation, Every 6 hours, PRN, # 8 Gm, Refills 0, Maintenance, 02/10/22 2:10:00 PM EDT, Aerosol Start Date: 02/10/22 Status: Ordered Quantity: 8.0 Unit: g Repeat number: 1 Allopurinol 100 mg, By Mouth, Daily, Refills [...] Status: Ordered Repeat number: 1 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 G7 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 G7 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, See Instructions, # 1 each, Refills 0, [...] 0 Refills, Maintenance, 08/28/24 6:45:00 PM EST, [facility] #[id number], Partial fill upon patient request if the prescription is for a schedule II opioid drug., Per instructions from GI., 183, cm, 08/28/24 15:05:00 EST, Height, 93, kg, 05/31/24 10:43:00 EDT, Dry Weight Start Date: 08/28/24 Status: Ordered Quantity: 4000.0 Unit: mL Repeat number: 1 Indication: Encounter for screening for malignant neoplasm of colon Lantus Solostar Pen 100 units/mL subcutaneous solution = 20 units, Subcutaneous Injection, Daily at bedtime, # 15 mL, 0 Refills, Maintenance, 08/29/24 10:06:00 AM EST, [facility], Partial fill upon patient request if the prescription is for a schedule II opioid drug. Start Date: 08/29/24 Status: Ordered Quantity: 15.0 Unit: mL Repeat number: 1 lisinopril 10 mg oral tablet 10 mg, 1, tablet, By Mouth, Daily, Refills 0, Maintenance, 04/19/21 10:35:00 AM EDT, Partial fill upon patient request if the prescription is for a schedule II opioid drug. Start Date: 04/19/21 Status: Ordered Repeat number: 1 lisinopril 20 mg oral tablet 20 mg, 1, tablet, By Mouth, Daily, # 30 tablet, Refills 0, Tot. Refills 0, Maintenance, 07/19/24 1:31:00 PM EDT, Route to Pharmacy Electronically, [facility] #[id number], Partial fill upon patient request if the [...] Date: 06/21/17 Status: Ordered Repeat number: 1 metFORMIN 500 mg oral tablet 1 tablet = 500 mg, By Mouth, 2 times a day, # 60 tablet, 0 Refills, Maintenance, 05/31/24 2:11:00 PMEDT, Tablet, [facility] #[id number], Partial fill upon patient request if the prescription is for a schedule II opioid drug., 183, cm, 05/31/24 11:01:00 EDT, Height, 93, kg, 05/31/24 10:43:00 EDT, Dry Weight Start Date: 05/31/24 Status: Ordered Quantity: 60.0 Unit: tablet Repeat number: 1 metoprolol 50 mg oral tablet 50 mg, [...] 3 Refills, Maintenance, 09/12/23 10:39:00 AM EST, [facility] #[id number], Partial fill upon patient request if the [...] Quantity: 12.0 Unit: tablet Repeat number: 1 tamsulosin 0.4 mg oral capsule 0.4 mg, 1, capsule, By Mouth, Daily, TAKE 1 CAPSULE BY MOUTH EVERY DAY Start Date: 04/19/21 Status: Ordered Repeat number: 1 Trulicity Pen 0.75 mg/0.5 mL subcutaneous solution 0.5 mL = 0.75 mg, Subcutaneous Injection, Every week, rotate injection sites, # 2 mL, 5 Refills, Maintenance, 08/28/24 4:51:00 PM EST, Solution, [facility] #[id number], restarting at lowest dose,183, cm, 08/28/24 15:05:00 EST, Height, 93, kg, 05/31/24 10:43:00 EDT, Dry Weight Start Date: 08/28/24 Status: Ordered Quantity: 2.0 Unit: mL Repeat number: 6 Ventolin HFA 108 mcg/inh inhalation aerosol with [...] Team Personnel Name: Antelmo Andrade RN Position: [facility] RN Member Role: Primary Care Nurse Name: Capri Branch RN Position: [facility] RN Member Role: Primary Care Nurse Name: Opal Barker RN Position: S RN Member Role: Primary Care Nurse Name: Shahnaz Lema RN Position: [facility] RN Member Role: Primary Care Nurse Name: Christine De MD Position: Reference Physician Member Role: PCP Address: [address] [place] [address]- [place] [employer]: Name: Aren Hoskins MD Position: [facility] Outreach Member Role: Lifetime Consulting Physician Address: [address] [facility] [address] [facility] [place] [address]- [place] [employer]: Name: Wen Junior RN Position: [facility] RN Member Role: Primary Care Nurse Name: Татьяна Lane LPN Position: [facility] RN Member Role: Primary Care Nurse Care Team Related Persons Name: BREANN ROTH Name: CASPER BENNETT Insurance Providers Guarantor name: ORIN BENNETT Health Plan Information #: 1 Payer: [facility] Member Number: NA Policy Number: NA Group Number: NA
--- OUTSIDE RECORDS SUMMARY | 2024-10-12 10:51 | XMS_ITS ---
Author Organization [facility] Address [address] [place] [address] Care Team Providers Care Fiber Optic Assembler Name Role Phone Lani Oswald Primary Care Provider Unavailabl e Black, Margarita Unavailable [phone] REASON FOR VISIT No show Encounters Encounter Location Date Provider Diagnosis [facility] [address] [place] [address] 04/14/2023 Margarita Black Plan Of Treatment No Information Progress Notes * Mohit BENNETTDOB: 6 (58 yo M)Acc No.[id number]:04/14/2023 Patient:?Mohit Bennett :1965???Age:58 Y???Sex:Male Address:[address] [place] [address]. [address], [place], [address] * true * Date:? Generated for Bobby duffy/Armen/eTransmitting on:?10/12/2024 10:50 AM EST
--- OUTSIDE RECORDS SUMMARY | 2024-10-12 10:51 | XMS_ITS | Patient Health Record ---
[facility] [place] Address [address] [place] [address] Care Team Providers Care Cyber Security Name Role Phone Darek Lani Primary Care Provider Unavailabl e Black, Margarita Unavailable [phone] Allergies Allergen (clinical drug ingredient) Drug/Non Drug [...] tive Ranitidine 1 tab Oral Active Umeclidinium [place] 62.5 MCG/INH 1 puff Inhalation Once a [...] primary osteoarthritis of the ankle and/or foot (494687686) Primary osteoarthritis, right ankle and foot (M19.071) Active confirmed Problem Polyneuropathy due to type 2 diabetes mellitus (379680717) Type 2 diabetes mellitus with diabetic polyneuropathy (E11.42) Active confirmed Problem [id number] 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 Plan Of Treatment Pending Test Test Name Order Date 60528-[id number] NAIL, 6 OR MORE 07/10/2020 12688-WPXLVCQ NAIL, 6 OR MORE 01/08/2021 40646-MRISCTM NAIL, 6 OR MORE 04/13/2021 05275-LIRHSYW NAIL, 6 OR MORE 09/07/2021 17404-UCTXCNV NAIL, 6 OR MORE 12/17/2021 11787-HMDISFF NAIL, 6 OR MORE 03/22/2022 64806-GXVKOLR NAIL, 6 OR MORE 06/24/2022 73210-JCCFUDD NAIL, 6 OR MORE 09/23/2022 92638-LTWQLOJ NAIL, 6 OR MORE 12/30/2022 47943-Lnju Destruction, 1-14 12/30/2022 25014-Gupr Destruction, 1-14 09/23/2022 29027, J0702- INJECT or DRAIN, JOINT/BUR SA 12/17/2021 61702-PQYK SKIN LESIONS, 2 TO 4 06/24/20 17053-AVAQ SKIN LESIONS, 2 TO 4 12/31/19 54316-VYIK SKIN LESIONS, 2 TO 4 09/23/20 43223, M2392-YQUWN/INJECT, JOINT/BURSA 0 11/12/2019 30852, Z0629-SMFXQ/INJECT, JOINT/BURSA 0 03/22/2022 X ray : Ankle, right 3V 12/17/2021 Insurance Providers Payer Name Payer Address Payer Phone Subscriber Number Group Number Insured Name Patient Relationship to Insured Coverage Start Date Coverage End Date [facility] [employer] Claims [address] [place] [address] [phone] [id number] Mohit Segovia Self - patient is the [...] gall bladder 11/07/2019 Hospitalization History Reason Date(Month/Year) [facility] 06/24
--- OUTSIDE RECORDS SUMMARY | 2024-10-12 10:51 | XMS_ITS ---
Author Organization [facility] Address [address] [place] [address] Care Team Providers Care Vp Construction Name Role Phone Darek Lani Primary Care Provider Unavailabl e Black, Margarita Unavailable [phone] Medications Medication SIG (Take, Route, Frequency, Duration) [...] tive Ranitidine 1 tab Oral Active Umeclidinium [place] 62.5 MCG/INH 1 puff Inhalation Once a [...] No Encounters Encounter Location Date Provider Diagnosis [facility] [address] [address] 04/14/2023 Margarita Alonso Plan Of Treatment No Information Progress Notes * Mohit BENNETTDOB: 6 (59 yo M)Acc No.[id number]:04/14/2023 Progress Note Patient:?BENNETT, Mohit Provider:?Margarita Alonso DPM :1965???Age:58 Y???Sex:Male Humberto e:04/14/2023 Address:[address] [place] [id number] Pcp:Lani Oswald Subjective: * Chief Complaints: * [...] Works for himself. * Medications:?Taking Umeclidi nium [place] 62.5 MCG/INH Aerosol Powder Breath Activated 1 [...] Alonso DPM Date:?2022 Generated for Bobby duffy/Armen/Jennifer on:?10/12/2024 10:50 AM EST
== END 2024-10-12 11:03 | disposition home or self-care (01) ==
PROVIDERS: PCP Internal Medicine; Visit Provider Orthopaedic Surgery
DX: M75.101 Unspecified rotator cuff tear or rupture of right shoulder, not specified as traumatic (principal)
CPT/HCPCS: 99214

== ENCOUNTER → 2024-10-12 10:37 | Outpatient (BNVA) | payer OTHER, SELFPAY | PROVIDERS: PCP Internal Medicine; Visit Provider Orthopaedic Surgery | DX: M75.101 Unspecified rotator cuff tear or rupture of right shoulder, not specified as traumatic (principal) | CPT/HCPCS: 99212 ==

== ENCOUNTER 2024-10-15 14:01 | Outpatient (AMB) | payer OTHER, SELFPAY ==
--- NOTE | 2024-10-15 14:21 | A.OFFPC_ITS ---
Vital Signs 10/15/24 14:27 Height 6 ft Weight 248 lb 2 oz BMI 33.6 BP 138/68 Blood Pressure Location Rt brachial Position Sitting Pulse 61 Pulse Source Pulse Oximeter Pulse Oximetry (%) 96 Oxygen Delivery Method Room Air Intake Visit Reasons: DFU FROM LOWERY Intake Note: Hosptial follow up. Quality Tester Required: No Allergies empagliflozin [From Jardiance] Allergy (Severe, Verified 10/15/24 14:27) Itching morphine [Morphine] Allergy (Severe, Verified 10/15/24 14:27) HIVES, THROAT CLOSES penicillin G [Penicillin G] Allergy (Severe, Verified 10/15/24 14:27) ANAPHYLAXIS Sulfa (Sulfonamide Antibiotics) [SULFA (SULFONAMIDE ANTIBIOTICS)] Allergy (Severe, Verified 10/15/24 14:27) ANAPHYLAXIS Gadolinium-Containing Contrast Medi [Gadolinium-Containing Agents] Allergy (Intermediate, Verified 10/15/24 14:27) Hives/Rash, dizziness, blue spots adhesive tape Adverse Reaction (Intermediate, Verified 10/15/24 14:27) Rash tramadol Adverse Reaction (Intermediate, Verified 10/15/24 14:27) Gastrointestinal Upset Tobacco use date assessed: 10/15/24 Dental Screening Dental Screen Date: 06/19/24 HPI HPI Comments History of Present Illness Details The patient is a 59 year old male with a past medical history of type 2 diabetes, hypertension, depression, gout, insomnia presenting for follow up Was evaluated in the ER recently for persistent headache. The patient had been experiencing new daily headaches for the 2 weeks prior. This day it was particularly bad, his blood pressure was high and so he presenting to the ER. The patient had a CT of the head without evidence of stroke. He was advised to follow up outpatient. Continues to have daily headaches. Does not wake up with them. Starts around 11m, lasts all day if doesn't take any medications DM: Was previously seeing endocrinology. On metformin 750mg twice daily. lantus 22 units, actos, trulicity. A1C one month ago 8.5 today. Started dexcom. His glucose has improved CV: Follows with cardiology, Dr Ocampo. On lisinopril 10, amlodipine 5 daily, toprol 25, crestor. Reports blood pressure has been fluctuating Rsp: Follows with pulmonary-Dr Saba. On dulera, azithromycin 3x/wk ROS CONSTITUTIONAL: Denies weight loss, fever and chills. HEENT: Denies changes in vision and hearing. RESPIRATORY: Denies SOB and cough. CV: Denies palpitations and CP GI: Denies abdominal pain, nausea, vomiting and diarrhea. : Denies dysuria and urinary frequency. MSK: Denies new myalgia and joint pain. SKIN: Denies rash and pruritus. NEUROLOGICAL: Denies headache PSYCHIATRIC: Denies recent changes in mood. PHYSICAL EXAM: GENERAL: Alert and oriented x 3. NAD EYES: EOMI. Anicteric. HENT: Moist mucous membranes. No scleral icterus. No cervical lymphadenopathy. LUNGS: Clear to auscultation bilaterally. CARDIOVASCULAR: Regular rate and rhythm. No murmur. No JVD. ABDOMEN: Soft, non-tender +bs EXTREMITIES: No edema. Non-tender. SKIN: No rashes or lesions. Warm. NEUROLOGIC: No focal neurological deficits. CN II-XII grossly intact PSYCHIATRIC: Cooperative. 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 Reactive airway disease On beta mitra at home History of pneumonia Vitamin D deficiency Left nephrolithiasis Dyslipidemia Diabetic polyneuropathy associated with type 2 diabetes mellitus Hypogonadism Failed back syndrome of lumbar spine Arthritis Back pain GERD (gastroesophageal reflux disease) History of fatty infiltration of liver History of ADHD Depression Elevated cholesterol HTN (hypertension) CAD (coronary artery disease) History of 2019 novel coronavirus disease (COVID-19) Cervical radiculopathy Nephrolithiasis Surgical History Hx of cardiac catheterization S/P cardiac catheterization History of kidney surgery Gynecomastia History of elbow surgery Hx laparoscopic cholecystectomy History of carpal tunnel release Hx of shoulder surgery Hx of arthroscopic knee surgery History of esophagogastroduodenoscopy (EGD) H/O colonoscopy Hx of lumbar discectomy Family History (Updated 10/15/24 @ 14:26 by Amy Conley CMA) Father Diabetes Hypertension Myocardial infarction Mother Diabetes Stroke Alzheimers disease Pacemaker Brother Diabetes Heart problem Myocardial infarction Sister Myocardial infarction Maternal Grandmother Myocardial infarction Unknown No problems noted. Social History (Updated 10/15/24 @ 14:25 by Amy Conley CMA) Household Members: Spouse and Family Housing: Apartment Are you a primary hospice care consultant to a significant other at home: No Do you presently have visiting nurse or other home services: No Alcohol intake: never Patient Tobacco Use Status: Never used Tobacco e-Cigarette/Vaping Use: Never Used Second Hand Smoke Exposure: No Use of substances other than those prescribed or required for medical reasons: No Advance Directives Date on File: 09/28/23 service: No Current occupational status: disabled Cognitive needs: No Hearing needs: No Vision needs: No Questionnaire Thrive Questionnaire Date Thrive assessed: 10/12/24 I am a: Patient What is your living situation today?: I have a steady place to live Within the past 12 months, did the food you bought not last and you didn't have the money to get more?: Often true Within the past 12 months, did you worry whether your food would run out before you got money to buy more?: Often true Do you have trouble paying for medicines?: No Do you have trouble getting transportation to medical appointments?: No Do you have trouble paying your heating and electricity bill?: No Do you have trouble taking care of your child, family member or friend?: No Do you have trouble with day-to-day activities such as bathing, preparing meals, shopping, managing finances, etc.?: No Are you currently unemployed and looking for a job?: No Are you interested in more education?: No Please select the resources that you would like help with: Food Currently or been in a relationship where the following occur: I choose not to answer THRIVE Score: 2 AUDIT C Alcohol Use Questionnaire (AUDIT-C) 1. How often do you have a drink containing alcohol?: Never 2. How many drinks containing alcohol do you have on a typical day when you are drinking?: 1 or 2 3. How often do you have six or more drinks on one occasion?: Never Total Score: 0 OANH-7 AMB Questionnaire OANH-7 Date OANH - 7 assessed: 06/19/24 Feeling nervous, anxious, or on edge: 0 = Not at all Not being able to stop or control worryin = Not at all Worrying too much about different things: 0 = Not at all Trouble relaxin = Not at all Being so restless that it is hard to sit still: 0 = Not at all Becoming easily annoyed or irritable: 0 = Not at all Feeling afraid as if something awful might happen: 0 = Not at all Total OANH-7 score (0-4 normal; 5-9 mild; 10-14 moderate; 15-21 severe): 0 Source: Developed by Drs. Osvaldo Velasquez, Keyona Martinez, Luc Martinez and colleagues, with an educational jose from [employer]. Physical exam (Primary Care) Vital Signs: Last Vital Signs Pulse 61 10/15/24 14:27 BP 138/68 10/15/24 14:27 Pulse Ox 96 10/15/24 14:27 Oxygen Delivery Method Room Air 10/15/24 14:27 BMI result Body Mass Index 33.6 Tobacco/Smoking Status: Tobacco use Status Tobacco use date assessed 10/15/24 10/15/24 14:23 Patient Tobacco Use Status Never used Tobacco 10/15/24 14:25 e-Cigarette/Vaping Use Never Used 10/15/24 14:25 Thrive Assessment: Date of Thrive Assessment Date Thrive assessed 10/12/24 10/15/24 14:23 Currently or been in a relationship where the following occur: I choose not to answer Coding Level of Care Code Est Pt Level 4 (31412) Diagnoses New onset headache R51.9 New daily persistent headache G44.52 Assessment & Plan Assessment & Plan (1) New onset headache: Code(s): R51.9 - Headache, unspecified Category: Medical Plan: MR ordered. New to r/o aneurysm, mass (2) New daily persistent headache: Code(s): G44.52 - New daily persistent headache (NDPH) Category: Medical Plan: see above. Blood pressure is also elevated -increase lisinopril to 20mg daily Orders: Orders MR angio head wo/w con 10/15/24 G44.52 - New daily persistent headache (NDPH) Medications: Changed From lisinopril 10 mg PO DAILY To lisinopril 30 mg (3 x 10 mg) PO DAILY 90 tabs 3RF
[2024-10-15 14:27] VITALS: BP 138/68; PULSE 61; O2SAT 96; BMI 33.6
== END 2024-10-15 15:00 | disposition home or self-care (01) ==
PROVIDERS: PCP Internal Medicine; Visit Provider Internal Medicine
DX: G44.52 New daily persistent headache (NDPH) (principal)

== ENCOUNTER → 2024-10-15 14:01 | Outpatient (BNVA) | payer OTHER, SELFPAY | PROVIDERS: PCP Internal Medicine; Visit Provider Internal Medicine | DX: G44.52 New daily persistent headache (NDPH) (principal); E11.9 Type 2 diabetes mellitus without complications; I10 Essential (primary) hypertension; Z79.4 Long term (current) use of insulin; Z79.899 Other long term (current) drug therapy | CPT/HCPCS: 99212 ==

== ENCOUNTER 2024-11-02 11:14 | Outpatient (AMB) | payer OTHER, SELFPAY ==
--- OUTSIDE RECORDS SUMMARY | 2024-11-02 12:02 | XMS_ITS | Encounter Summary ---
Author Organization [facility] Address [address] [place] [phone] Phone Care Team Providers Care Ammonia Operator Name Role Phone Татьяна Haynes MD Primary Care Provider + Reason for Visit * Reason Comments Hypertension Encounter Details Date Type Department Care Team ([facility] Contact Info) Description 10/17/2024 1:30 PM EST Office Visit [facility] [address] [phone] Paz Dee ARNP [address] [phone] Hypertension (Primary Dx); Nephrolithiasis; Idiopathic chronic gout without tophus, not otherwise specified Social History Tobacco Use Types Packs/Day Years Used Date Smoking Tobacco: Never Smokeless Tobacco: Never Alcohol Use Standard Drinks/Week Comments Never 0 (1 standard drink = 0.6 oz pur e alcohol) Sex and Gender Information Value Date Recorded Sex Assigned at Not on file Legal Sex Male 11:44 AM EST Gender Identity Not on file Sexual Orientation Not on file documented as of this encounter Last Filed Vital Signs Vital Sign Reading Time Taken Comments Blood Pressure 128/72 10/17/2024 1:44 PM EST Pulse 72 10/17/2024 1:44 PM EST Temperature - - Respiratory Rate - - Oxygen Saturation - - Inhaled Oxygen Concentration - - Weight 110 kg (242 lb) 10/17/2024 1:44 PM EST Height - - Body Mass Index 32.82 12/22/2021 2:29 PM EDT documented in this encounter Progress Notes * Paz Dee ARNP - 10/17/2024 1:30 PM EST Images from the original note were not included. Patient Name: Mohit Segovia, Male Date of : 1965, 59 y.o. Date: 10/17/2024 History of Present Illness Mr. Mohit Segovia is a 59-year-old male with past medical history of Nephrolithiasis, HTN, HLD, DM2, SONY and CAD who presents for annual follow-up. He was seen in the [facility] ER on 10/01/24 for stroke symptoms with elevated BP. Lisinopril was increased from 20 mg QD to BID. He was also with bad gout attack for which his Allopurinol was increased from 300 mg QD to BID. BACKGROUND: He began having Nephrolithiasis around year 2019. He has had multiple recurrences. He has had stoneanalysis which demonstrated calcium based and uric acid based stones as far back as 2019. A litholink completed in 2021 confirmed Ca-Phos and Uric Acid risk factors. He laos had a low urine volume or503yf in 24 hours. Last Renal U/S was 09/03/2022 showing resolution of [place] and no current stones. Last CT abd/pelvis was 04/01/2023 showing non-obstructing 0.3cm Left renal stone. Renal function remains normal, with history of resolved KAYLI's during obstructive nephrolithiasis episodes. Historically he has required 3 cystoscopies and stone removal. Denies stone passing symptoms or other urinary problems. Past Medical History Past Medical History: Diagnosis Date Arthritis Asthma Attention-deficit hyperactivity disorder Back pain Chronic depression Coronary atherosclerosis of unspecified type of vessel, [place] or graft COVID-19 Degeneration of cervical intervertebral disc Dyslipidemia Esophageal reflux Essential hypertension Fatty liver Hypogonadism Nephrolithiasis Neuropathic pain Obesity Obstructive sleep apnea syndrome Other and unspecified hyperlipidemia Pleuritic pain Pneumonia Post-laminectomy syndrome Postherpetic neuralgia Reactive airway disease Vitamin D deficiency Past Surgical History Past Surgical History: Procedure Laterality Date ARTHROSCOPIC REPAIR SLAP LESION SHOULDER W/ W/O THERMAL CAPSULORRHAPHY CARDIAC CATHETERIZATION CARPAL TUNNEL RELEASE COLONOSCOPY ELBOW SURGERY ESOPHAGOGASTRODUODENOSCOPY GYNECOLOGIC CRYOSURGERY KIDNEY SURGERY LAPAROSCOPIC CHOLECYSTECTOMY LUMBAR DISCECTOMY SHOULDER SURGERY Family History Family History Problem Relation Age of Onset Heart disease Mother Stroke Mother Diabetes Mother Alzheimer's disease Mother Hypertension Father Diabetes Father Heart attack Father Heart disease Brother Diabetes Brother Heart attack Brother Heart attack Mother's Sister Heart attack Maternal Grandmother Social History Social History Tobacco Use Smoking status: Never Smokeless tobacco: Never Substance Use Topics Alcohol use: Never Review of Systems Constitutional: Negative for chills, fever, malaise/fatigue, weight gain and weight loss. HENT: Negative for congestion, hearing loss and nosebleeds. Eyes: Negative for blurred vision, pain, discharge and impaired. Respiratory: Negative for cough, shortness of breath and wheezing. Cardiovascular: Negative for chest pain, palpitations and leg swelling. Gastrointestinal: Negative for abdominal pain, blood in stool, constipation, diarrhea, nausea, vomiting and poor appetite. Genitourinary: Negative for dysuria, frequency, hematuria and urgency. Musculoskeletal: Negative for back pain, joint pain, myalgias and neck pain. Skin: Negative for rash. Neurological: Negative for dizziness, tremors and headaches. Endo/Heme/Allergies: Negative for polydipsia. Does not bruise/bleed easily. Psychiatric/Behavioral: Negative. Medication List Current Outpatient Medications Medication Sig Dispense Refill Acetaminophen Extra Strength 500 MG tablet TAKE 2 TABLETS BY MOUTH THREE TIMES DAILY NEEDED FOR FOR PAIN Albuterol Sulfate 108 (90 Base) MCG/ACT aerosol powder Inhale allopurinol (ZYLOPRIM) 300 MG tablet Take 1 tablet (300 mg total) by mouth 1 (one) time each day (Patient taking differently: Take 300 mg by mouth in the morning and 300 mg in the evening.) 30 tablet0 citric acid-potassium citrate (POLYCITRA) 1100-334 MG/5ML solution Take 15 mL by mouth in the morning and 15 mL in the evening. insulin glargine (LANTUS) 100 UNIT/ML injection Inject under the skin every night Insulin Infusion Pump ([employer] G6 Control-IQ Ins Pump) device lisinopril 10 MG tablet Take 1 tablet (10 mg total) by mouth 1 (one) time each day (Patient taking differently: Take 20 mg by mouth in the morning and 20 mg in the evening.) 30 tablet 5 metFORMIN XR (GLUCOPHAGE-XR) 750 MG 24 hr tablet Take 2 tablets (1,500 mg total) by mouth 1 (one) time each day 60 tablet 5 metoprolol tartrate (LOPRESSOR) 50 MG tablet Take 50 mg by mouth in the morning and 50 mg in the evening. omeprazole (PriLOSEC) [address] capsule Take 20 mg by mouth in the morning and 20 mg in the evening. pregabalin (LYRICA) 150 MG capsule Take 1 capsule (150 mg total) by mouth in the morning and 1 capsule (150 mg total) in the evening. 60 capsule 5 rosuvastatin (CRESTOR) 40 MG tablet Take 40 mg by mouth 1 (one) time each day No current facility-administered medications for this visit. Allergy List Allergies Allergen Reactions Adhesive Tape Other (see comments) Amoxicillin Other (see comments) Aspirin Other (see comments) Iodinated Contrast Media Iodine Other (see comments) Morphine Other (see comments) Penicillins Other (see comments) Tolerates ceftriaxone Sulfa Antibiotics Sulfamethoxazole-Trimethoprim Other (see comments) Physical Exam BP 128/72 Pulse 72 Wt 242 lb (110 kg) BMI 32.82 kg/m?? Vitals reviewed. Constitutional: He is oriented to person, place, and time. He does not appear ill. No distress. HEENT: Mouth/Throat: Oropharynx is clear and moist. Eyes: Conjunctivae are normal. No scleral icterus. Neck: No JVD present. No thyroid mass and no thyromegaly present. Cardiovascular: Normal rate and regular rhythm. Exam reveals no friction rub. No murmur heard.He exhibits no edema. Pulmonary/Chest: Effort normal and breath sounds normal. No respiratory distress. He has no wheezes. He has no rales. Abdominal: Soft. There is no abdominal tenderness. No hernia. Musculoskeletal: Normal range of motion. He exhibits no deformity. Neurological: He is alert and oriented to person, place, and time. Skin: Skin is warm and dry. No rash noted. No erythema. Psychiatric: He has a normal mood and affect. His behavior is normal. Judgment normal. Labs Chemistry Lab Units 10/01/24 0000 04/15/23 0000 03/11/23 1417 CREATININE mg/dL 0.79 0.90 0.8 BUN mg/dL -- 16 12 POTASSIUM 4.0 4.1 4.3 SODIUM 140 142 143 CO2 mmol/L 25 26 28 CHLORIDE MMOL/L -- -- 106 ALBUMIN GM/DL -- -- 4.7 EGFRNAFR 103 95 102 HEMOGLOBIN A1C % -- -- 6.3* WBC AUTO K/MM3 -- -- 5.1 HEMATOCRIT 41.7 -- 44.5 HEMOGLOBIN 13.5 -- 13.8 PLATELETS AUTO 10*3/UL 237 -- 240 Bone Mineral Lab Units 10/01/24 0000 04/15/23 0000 03/11/23 1417 CALCIUM mg/dL -- 9.8 9.6 PHOSPHORUS 3.6 -- 3.6 PTH PG/ML -- -- 55 VITAMIN D NG/ML -- -- 36.5 Urine Lab Units 03/11/23 1425 ALB MG/G CREAT UR MG/DL 6.3 198.8 Urine Lab Units 03/11/23 1425 ALB MG/G CREAT UR MG/DL 6.3 198.8 Urine Lab Units 10/01/24 0000 03/11/23 1425 PH U -- 5.5 GLUCOSE UR -- NEGATIVE KETONES U MG/DL -- NEGATIVE WBC UR HPF /HPF -- <1 RBC UR HPF /HPF -- NONE SEEN PROTEIN UR mg/dL Negative -- UROBILINOGEN U MG/DL MG/DL -- NORMAL Renal U/S 09/03/2022 Reason For Exam N20.0 CALCULUS OF KIDNEY RESULT: US Retroperitoneum Comp US Retroperitoneum Comp Reason: N20.0 CALCULUS OF KIDNEY; Clinical Question(s): Other: COMPARISON: 05/18/2022 CT of the abdomen and pelvis. FINDINGS: Right kidney: 12.4 cm in length. No hydronephrosis. Normal parenchymal thickness and echotexture. No stones. No suspicious mass. Left kidney: Duplex left renal collecting system. 15.3 cm in length. No hydronephrosis. Previously seen hydronephrosis has resolved. Normal parenchymal thickness and echotexture. No stones. No suspicious mass. 4.0 cm simple cyst in the left kidney lower pole. Twinkle artifact at the lower pole of the left kidney adjacent to the cyst is not seen on recent prior CT and of unlikely clinical significance. No definite calculi are seen. Urinary bladder: Normal morphology. No stone, mass, wall thickening or debris. Liver: Partially-imaged liver is echogenic likely representing hepatic steatosis. IMPRESSION: No renal calculi are seen. No hydronephrosis. Previously seen left-sided hydronephrosis has resolved. Assessment & Plan 1. Hypertension 2. Nephrolithiasis 3. Idiopathic chronic gout without tophus, not otherwise specified Recurrent Uric Acid and Calcium based Nephrolithiasis. A litholink completed in 2021 confirmed Ca-Phos and Uric Acid risk factors. Lastly patient also hadelevated oxalate in urine. Patient had a very high oxlate diet, very high in legumes. This was stopped. Plan: - c/w K-Citrate 15meq BID - c/w Allopurinol 300mg BID - increased 3 weeks ago in ER per pt - Will hold off on HCTZ given gout history. - avoid VIT D supplements - OK for dietary Vit D and calcium, but not supplemental - increase water intake to improve daily UOP to >2L - reduce sodium intake to <2g /day 2. T2DM On Metformin and Lantus Keep HgbA1c <7% Consider SGLT2i 3. HTN Well controlled BP C/w Lisinopril 20 mg BID - increased from QD on 10/01/24 C/w Metoprolol 50 mg BID No Edema No medication changes made today Follow low NA diet Avoid NSAIDS/Decongestant medication Orders Placed This Encounter Basic metabolic panel Urine Albumin / Creatinine Ratio Urine Protein / creatinine ratio Uric acid Return in about 1 year (around 10/17/2025) for Next scheduled follow-up with BREEZY Wise Cosigned by Mohit Lopez MD at 10/17/2024 3:35 PM EST documented in this encounter Plan of Treatment Upcoming Encounters Date Type Department Care Team (Late st Contact Info) Description 10/17/2025 9:00 AM EST Office Visit [facility] [address] [phone] Paz Dee ARNP [address] [address] Scheduled Orders Name Type Priority Associated Diagnoses Orde r Schedule Basic metabolic panel Lab Routine Hypertension Expected: 10/17/2024, Expires: 11/17/2025 Urine Albumin / Creatinine Ratio Lab Routine Hypertension Idiopathic chronic gout without tophus, not otherwise specified Expected: 10/17/2024, Expires: 11/17/2025 Urine Protein / creatinine ratio Lab Routine Hypertension Idiopathic chronic gout without tophus, not otherwise specified Expected: 10/17/2024, Expires: 11/17/2025 Uric acid Lab Routine Hypertension Idiopathic chronic gout without tophus, not otherwise specified Expected: 10/17/2024, Expires: 11/17/2025 documented as of this encounter Procedures Procedure Name Priority Date/Time Associated Diagnosis Comments EXT RESULT ENTRY Routine 10/01/2024 documented in this encounter Results * EXT RESULT ENTRY (10/01/2024) Hemoglobin 13.5 13.5 - 17.5 Hematocrit 41.7 41.0 - 53.0 Platelets 237 150 - 399 10*3/UL Sodium 140 137 - 147 Potassium 4.0 3.4 - 5.5 Carbon Dioxide 25 mmol/L Creatinine 0.79 0.60 - 1.30 mg/dL Phosphorus, Serum 3.6 eGFR Non-Afr [place] 103 Urine Specific [place] 1.015 Protein, UA Negative mg/dL 10/01/2024 Historical Provider LAB BLOOD ORDERABLES Angelita l Result documented in this encounter Visit Diagnoses Diagnosis Hypertension- Primary Nephrolithiasis Idiopathic chronic gout without tophus, not otherwise specified documented in this encounter Care Teams Ammonia Operator Relationship Specialty Start Date [place] [address] [place] [id number] PCP - General Internal Medicine 01/25/23 documented as of this encounter
--- OUTSIDE RECORDS SUMMARY | 2024-11-02 12:02 | XMS_ITS | Continuity of Care Document ---
Author Organization [facility] Address [address] [place] [id number]- Care Team Providers Care Meat Scrubber Name Role Phone Christine De MD Primary Care Physician Encounter [facility] Date(s): 10/02/24 - 11/01/[address] [address]- Attending Physician: AdmtrRachel Admitting Physician: AdmtrRachel Referring Physician: Admtr ArKaitlin Encounter Type: Triage Allergies, Adverse Reactions, Alerts Substance Criticality Severity Reaction Reaction Severity Status morphine Active penicillins 1 Active sulfa drugs Active Contrast Dye Active Other Food Allergy 2 Active HYDROmorphone Hydrochloride Active traMADol Active Jardiance Active 1Tolerates ceftriaxone [...] 400.0 Unit: each Repeat number: 5 Allopurinol 300 mg, By Mouth, Daily, Refills 0, Maintenance, 04/05/21 5:45:00 PM EDT, Partial fill upon patient request if the prescription is for a schedule II opioid drug. Start Date: 04/05/21 Status: Ordered Repeat number: 1 amLODIPine 5 mg oral tablet 5 mg, 1, tablet, By Mouth, Daily, # 90 tablet, Refills 3, Tot. Refills 3, Maintenance, 10/31/24 9:24:00 AM EST, Route to Pharmacy Electronically, [facility] #[id number], Partial fill upon patient request if the prescription is for a schedule II opioid drug., 183, cm, 10/26/24 13:31:00 EST, Height, 108.5, kg, 10/01/24 18:00:00 EST, Dry Weight Start Date: 10/31/24 Status: Ordered Quantity: 90.0 Unit: tablet Repeat number: 4 aspirin 81 mg oral delayed release tablet 1 tablet = 81 mg, By Mouth, Daily, # 30 tablet, 8 Refills, Maintenance, 10/02/24 3:05:00 PM EST, CRTablet, [facility] #[id number], Partial fill upon patient request if the prescription is for a schedule II opioid drug., 183, cm, 10/02/24 8:02:00 EST, Height, 108.5, kg, 10/01/24 18:00:00 EST, Dry Weight Start Date: 10/02/24 Status: Ordered Quantity: 30.0 Unit: tablet Repeat number: 9 DexCom G7 Bonsai Tender DexCom G7 Bonsai Tender, See Instructions, # 1 each, Refills 0, [...] 0 Refills, Maintenance, 08/28/24 6:45:00 PM EST, [facility] #[id number], Partial fill upon patient request if the prescription is for a schedule II opioid drug., Per instructions from GI., 183, cm, 08/28/24 15:05:00 EST, Height, 93, kg, 05/31/24 10:43:00 EDT, Dry Weight Start Date: 08/28/24 Status: Ordered Quantity: 4000.0 Unit: mL Repeat number: 1 Indication: Encounter for screening for malignant neoplasm of colon Kenny Santizoar Pen 100 units/mL subcutaneous solution = 26 units, Subcutaneous Injection, Daily at bedtime, rotate injection sites, # 15 mL, 11 Refills, Maintenance, 09/20/24 2:28:00 PM EST, Solution, [facility] #[id number], increased dose, 183, cm,09/20/24 13:42:00 EST, Height, 110, kg, 08/29/24 14:11:00 EST, Dry Weight Start Date: 09/20/24 Status: Ordered Quantity: 15.0 Unit: mL Repeat number: 12 lisinopril 30 mg oral tablet 1 tablet = 30 mg, By Mouth, Daily, # 90 tablet, 3 Refills, Maintenance, 10/31/24 9:24:00 AM EST, Tablet, [facility] #[id number], Partial fill upon patient request if the prescription is for a schedule II opioid drug., 183, cm, 10/26/24 13:31:00 EST, Height, 108.5, kg, 10/01/24 18:00:00 EST, Dry Weight Start Date: 10/31/24 Status: Ordered Quantity: 90.0 Unit: tablet Repeat number: 4 Lyrica 50 mg oral capsule 3 capsules, By Mouth, Daily, 0 Refills, Maintenance, 06/21/17 7:44:46 PM EDT Start Date: 06/21/17 Status: Ordered Repeat number: 1 Lydeb KwikPen 100 units/mL injectable solution = 8 units, Subcutaneous Injection, 3 times a day with meals, at the start of a meal or within 20 minutes after starting a meal, # 15 mL, 11 Refills, Maintenance, 09/20/24 5:00:00 PM EST, Solution, [facility] #[id number], Partial fill upon patient request if the [...] 4 Refills, Maintenance, 09/20/24 2:29:00 PM EST, [facility] #[id number], increased dose, replacing metformin 750 mg. please [...] 3 Refills, Maintenance, 09/12/23 10:39:00 AM EST, [facility] #[id number], Partial fill upon patient request if the prescription is for a schedule II opioid drug., 182.8, cm, 09/07/23 10:08:00 EST, Height, 90, kg, 02/19/23 12:28:00 EDT, Dry Weight Start Date: 09/12/23 Status: Ordered Quantity: 60.0 Unit: capsule Repeat number: 4 Indication: Gastro-esophageal reflux disease without esophagitis Pen Energy, 32 G x 4 mm BD Ultra [...] Quantity: 90.0 Unit: tablet Repeat number: 1 Potassium Citrate See Instructions, By Mouth, 450 mg, 0 Refills, Maintenance, 10/01/24 5:43:00 PM EST, Partial fill upon patient request if the prescription is for a schedule II opioid drug. Start Date: 10/01/24 Status: Ordered Repeat number: 1 tamsulosin 0.4 mg oral [...] Quantity: 60.0 Unit: capsule Repeat number: 1 Zetia 10 mg oral tablet 1 tablet = 10 mg, By Mouth, Daily, # 90 tablet, 3 Refills, Maintenance, 10/31/24 8:29:00 AM EST, Tablet, [id number], Partial fill upon patient request if the prescription is for a schedule II opioid drug., 183, cm, 10/26/24 13:31:00 EST, Height, 108.5, kg, 10/01/24 18:00:00 EST, Dry Weight Start Date: 10/31/24 Status: Ordered Quantity: 90.0 Unit: tablet Repeat number: 4 Problem List Condition Confirmation Course Effective Dates Status H ealth Status Informant COVID-19 1 Confirmed 05/19/22 Active COVID-19 2 Confirmed 10/02/24 Active Diabetes mellitus Confirmed Active GERD (gastroesophageal reflux disease) Confirmed Active Hyperlipidemia Confirmed Active Hypertension Confirmed Active SONY on CPAP Confirmed Active PTSD (post-traumatic stress disorder) Confirmed Active 1Problem added by Discern Expert 2Problem added by Discern Expert Social History Social History Type Response Smoking Status Never (less than 100 in lifetime) entered on: 11/09/20 Sex Sex Representation Male (finding) Patient Care team information Care Team Personnel Name: Antelmo Andrade RN Position: S RN Member Role: Primary Care Nurse Name: Capri Branch RN Position: S RN Member Role: Primary Care Nurse Name: Osvaldo El RN Position: [facility] RN Supv Member Role: Primary Care Nurse Name: Opal Barker RN Position: [facility] RN Member Role: Primary Care Nurse Name: Shahnaz Lema RN Position: [facility] RN Member Role: Primary Care Nurse Name: Christine De MD Position: Reference Physician Member Role: PCP Address: [address] [place] [id number]- [place] [employer]: Name: Aren Hoskins MD Position: [facility] Outreach Member Role: [employer] Consult[employer] Physician Address: [address] [place] [address] [address] [facility] [place] [address]- [place] [employer]: Name: Wen Junior RN Position: [facility] RN Member Role: Primary Care Nurse Name: Татьяна Lane LPN Position: [facility] RN Member Role: Primary Care Nurse Care Team Related Persons Name: BREANN ROTH Name: CASPER BENNETT Insurance Providers Guarantor name: [facility] Health Plan Information #: 1 Payer: [facility] [employer]ONE C[employer] Member Number: NA Policy Number: NA Group Number: NA
--- OUTSIDE RECORDS SUMMARY | 2024-11-02 12:02 | XMS_ITS | Clinical Summary ---
Author Organization [facility] Address [address] [facility] [address] [place] [address] Phone Care Team Providers Care Card Player Name Role Phone Татьяна Haynes MD Primary Care Provider + Allergies Active Allergy Reactions Criticality Noted Date Comments Adhesive Tape Other (see comments) 09/07/2021 Amoxicillin Other (see comments) 12/17/2021 Aspirin Other (see comments) 09/07/2021 Iodinated Contrast Media 12/22/2021 Iodine Other (see comments) 09/07/2021 Morphine Other (see comments) 09/07/2021 Penicillins Other (see comments) 09/07/2021 Tolerates ceftriaxone Sulfa Antibiotics 12/22/2021 Sulfamethoxazole-Trime thoprim Other (see comments) 09/07/2021 Medications * This document contains information received from the source organization and may not represent a complete record from that organization. Acetaminophen Extra Strength 500 MG tablet TAKE 2 TABLETS BY MOUTH THREE TIMES DAILY NEEDED FOR FOR PAIN 12/16/19 22 Active Albuterol Sulfate 108 (90 Base) MCG/ACT aerosol powder Inhale 01/02/20 20 Active metoprolol tartrate (LOPRESSOR) 50 MG tablet Take 50 mg by mouth in the morning and 50 mg in the evening. 11/20/19 22 Active omeprazole (PriLOSEC) [address] capsule Take 20 mg by mouth in the morning and 20 mg in the evening. 11/05/19 22 Active rosuvastatin (CRESTOR) 40 MG tablet Take 40 mg by mouth 1 (one) time each day 11/26/19 22 Active Insulin Infusion Pump ([employer] G6 Control-IQ Ins Pump) device Active metFORMIN XR (GLUCOPHAGE-XR ) 750 MG 24 hr tablet Take 2 tablets (1,500 mg total) by mouth 1 (one) time each day 60 tablet 5 08/30/20 Active pregabalin (LYRICA) 150 MG capsule Take 1 capsule (150 mg total) by mouth in the morning and 1 capsule (150 mg total) in the evening. 60 capsule 5 08/30/20 Active lisinopril 10 MG tablet Take 1 tablet (10 mg total) by mouth 1 (one) time each day 30 tablet 5 08/30/20 Active Additional Information Patient taking differently: 20 mgOral2 times daily, Reported on 10/17/2024 allopurinol (ZYLOPRIM) 300 MG tablet Take 1 tablet (300 mg total) by mouth 1 (one) time each day 30 tablet 10/15/19 Active Additional Information Patient taking differently:300 mg Oral2 times daily, Reported on 10/17/2024 citric acid-potassium citrate (POLYCITRA) 1100-334 MG/5ML solution Take 15 mL by mouth in the morning and 15 mL in the evening. Active insulin glargine (LANTUS) 100 UNIT/ML injection Inject under the skin every night Active Trulicity 3 MG/0.5ML solution pen-injector INJECT 0.5MG UNDER THE SKIN EVERY WEEK 12/03/19 025 Discontinued( Med List Maintenance) potassium citrate (UROCIT-K) 5 MEQ (540 MG) CR tablet TAKE 3 TABLETS BY MOUTH EVERY MORNING AND 3 TABLETS EVERY EVENING. TAKE WITH MEALS. DO NOT CRUSH, CHEW OR SPLIT 180 tablet 5 09/03/20 025 Discontinued( Duplicate order (does not appear on AVS)) potassium citrate (UROCIT-K) 5 MEQ (540 MG) CR tablet Take 15 mEq by mouth in the morning and 15 mEq in the evening. 05/23/20 23 025 Discontinued( Dose adjustment (does not appear on AVS)) allopurinol (ZYLOPRIM) 300 MG tablet Take 1 tablet (300 mg total) by mouth 1 (one) time each day 30 tablet 5 08/30/20 23 025 Discontinued( Reorder (does not appear on AVS)) Active Problems Problem Noted Date Diagnosed Date Diabetes mellitus 12/22/2021 Gastroesophageal reflux disease 12/22/2021 Hyperlipidemia 12/22/2021 Hypertension 12/22/2021 Localized, primary osteoarthritis of the ankle a nd/or foot 12/22/2021 Obstructive sleep apnea syndrome 12/22/2021 Polyneuropathy due to type 2 diabetes mellitus 0 12/22/2021 Posttraumatic stress disorder 12/22/2021 Traumatic arthropathy of the ankle and/or foot 0 12/22/2021 Nephrolithiasis 12/22/2021 Encounters Date Type Department Care Team Description 10/17/2024 1:30 PM EST [facility] [address] [phone] Paz Dee ARNP Hypertension (Primary Dx); Nephrolithiasis; Idiopathic chronic gout without tophus, not otherwise specified 10/15/2024 Refill [facility] [address] [phone] Sunshine Tenorio MA from Last 3 Months Immunizations Name Administration Dates Next Due Influenza (IM) Preservative Free 07/10/2020,10/2018 Family History Medical History Relation Comments Diabetes Brother Heart attack Brother Heart disease Brother Diabetes Father Heart attack Father Hypertension Father Heart attack Maternal Grandmother Alzheimer's disease Mother Diabetes Mother Heart disease Mother Stroke Mother Heart attack Mother's Sister Relation Status Comments Brother Father Maternal Grandmother Mother Mother's Sister Social History Tobacco Use Types Packs/Day Years Used Date Smoking Tobacco: Never Smokeless Tobacco: Never Tobacco Cessation:Counseling Given: No Alcohol Use Standard Drinks/Week Comments Never 0 (1 standard drink = 0.6 oz pur e alcohol) Sex and Gender Information Value Date Recorded Sex Assigned at Not on file Legal Sex Male 11:44 AM EST Gender Identity Not on file Sexual Orientation Not on file Last Filed Vital Signs Vital Sign Reading Time Taken Comments Blood Pressure 128/72 10/17/2024 1:44 PM EST Pulse 72 10/17/2024 1:44 PM EST Temperature - - Respiratory Rate - - Oxygen Saturation 98% 12/22/2021 2:29 PM EDT Inhaled Oxygen Concentration - - Weight 110 kg (242 lb) 10/17/2024 1:44 PM EST Height 182.9 cm (6') 12/22/2021 2:29 PM EDT Body Mass Index 32.82 12/22/2021 2:29 PM EDT Plan of Treatment Upcoming Encounters Date Type Department Care Team (Late st Contact Info) Description 10/17/2025 9:00 AM EST Office Visit [facility] [address] [phone] Paz Dee ARNP [address] [address] Health Maintenance Due Date Last Done Comments Pneumococcal Vaccine: Pediat rics (0 to 5 Years) and At-Risk Patients (6 to 64 Years) (1 of 2 - PCV) 1972 Hepatitis B Vaccine (1 of 3 - 19+ 3-dose series) 1985 Colorectal Cancer Screening: Annual FOBT 2015 Colorectal Cancer Screening: Colonoscopy 2015 Colorectal Cancer Screening: Sigmoidoscopy 2015 Diabetes: Ophthalmology Exam 12/14/2021 Diabetes: Pedal Pulse Checked 12/14/2021 Diabetes: Sensory Foot Exam 12/14/2021 Diabetes: Visual Foot Exam 12/14/2021 Diabetes: Hemoglobin A1C 06/11/2023 03/11/2023 Influenza Vaccine (#1) 2024 07/10/2020, 2018 Procedures Procedure Name Priority Date/Time Associated Diagnosis Comments EXT RESULT ENTRY Routine 10/01/2024 HEMOGLOBIN A1C Routine 03/11/2023 2:17 PM EDT Nephrolithiasis Hypertension 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) from Last 3 Months or Most Recently Relevant to Health Maintenance Results * EXT RESULT ENTRY (10/01/2024) Hemoglobin 13.5 13.5 - 17.5 Hematocrit 41.7 41.0 - 53.0 Platelets 237 150 - 399 10*3/UL Sodium 140 137 - 147 Potassium 4.0 3.4 - 5.5 Carbon Dioxide 25 mmol/L Creatinine 0.79 0.60 - 1.30 mg/dL Phosphorus, Serum 3.6 eGFR Non-Afr [place]an 103 Urine Specific [place] 1.015 Protein, UA Negative mg/dL 10/01/2024 Historical Provider LAB BLOOD ORDERABLES Angelita l Result * (ABNORMAL) Hemoglobin A1c (03/11/2023 2:17 PM EDT) Hemoglobin A1C 6.3(H) (4.0-5.6) % [facility] Comment: MONITORING: In known diabetic patients, hemoglobin A1c targets should be discussed with health care provider. DIAGNOSTIC USE: ??The [place] Diabetes Association (ADA) and the World Health Organization (WHO) recommend the use of HbA1c to diagnose diabetes using a threshold of 6.5%. Patients who have an HbA1c between 5.7% and 6.4% are considered at increased risk for developing diabetes in the future. CAUTION: Falsely low HbA1c results may be observed in patients with hemolytic anemia, homozygous forms of abnormal hemoglobin (e.g. SS, CC, SC), , recent blood loss or hemoglobin F greater than 7%. Fructosamine may be used as an alternate test in these cases. REFERENCE: ADA: Standards of Medical Care in Diabetes 2020, The Journal of Clinical and Applied Research and Education Volume 43, Supplement 1 Testing performed or reported by [facility], a Service of [facility], [address] [place] [address] Terrell Carver MD, Payment Analyst [facility]# [id number] Blood (Blood, Venous) 03/11/2023 2:17 PM EDT 03/11/2023 2:18 PM EDT Aren Hoskins MD LAB BLOOD ORDERABLES Angelita l Result [facility] from Last 3 Months or Most Recently Relevant to Health Maintenance Insurance [facility] ([id number]) [facility] ([id number]) Care Teams Card Player Relationship Specialty Start Date End Date Татьяна Haynes MD [address] [address] PCP - General Internal Medicine 01/25/23
--- OUTSIDE RECORDS SUMMARY | 2024-11-02 12:02 | XMS_ITS | Continuity of Care Document ---
Author Organization [facility] ter Address [address] [place] [phone]- Care Team Providers Care C D Still Operator Name Role Phone Christine De MD Primary [id number] Date(s): 10/02/24 - 11/01/[address] [address]- Attending Physician: Not on Staff, Attending MD Admitting Physician: Not on Staff, Admitting MD Referring Physician: Not on Staff, Referring MD Encounter Type: Pre-Outpt Allergies, Adverse Reactions, Alerts Substance Criticality Severity Reaction Reaction Severity Status Jardiance Active morphine Active penicillins 1 Active sulfa drugs Active Contrast Dye Active Other Food Allergy 2 Active HYDROmorphone Hydrochloride Active traMADol Active 1Tolerates ceftriaxone 2Red Meats Medications albuterol [...] 9:24:00 AM EST, Route to Pharmacy Electronically, [facility] #[id number], Partial fill upon patient request if the [...] Refills, Maintenance, 10/02/24 3:05:00 PM EST, CRTablet, [facility][id number], Partial fill upon patient request if the prescription is for a schedule II opioid drug., 183, cm, 10/02/24 8:02:00 EST, Height, 108.5, kg, 10/01/24 18:00:00 EST, Dry Weight Start Date: 10/02/24 Status: Ordered Quantity: 30.0 Unit: tablet Repeat number: 9 DexCom G7 Certified Ski Patroller DexCom G7 Certified Ski Patroller, See Instructions, # 1 each, Refills 0, [...] 0 Refills, Maintenance, 08/28/24 6:45:00 PM EST, [id number], Partial fill upon patient request if the prescription is for a schedule II opioid drug., Per instructions from GI., 183, cm, 08/28/24 15:05:00 EST, Height, 93, kg, 05/31/24 10:43:00 EDT, Dry Weight Start Date: 08/28/24 Status: Ordered Quantity: 4000.0 Unit: mL Repeat number: 1 Indication: Encounter for screening for malignant neoplasm of colon Lantus Solostar Pen 100 units/mL subcutaneous solution = 26 units, Subcutaneous Injection, Daily at bedtime, rotate injection sites, # 15 mL, 11 Refills, Maintenance, 09/20/24 2:28:00 PM EST, Solution, [facility] #[id number], increased dose, 183, cm,09/20/24 13:42:00 EST, Height, 110, kg, 08/29/24 14:11:00 EST, Dry Weight Start Date: 09/20/24 Status: Ordered Quantity: 15.0 Unit: mL Repeat number: 12 lisinopril 30 mg oral tablet 1 tablet = 30 mg, By Mouth, Daily, # 90 tablet, 3 Refills, Maintenance, 10/31/24 9:24:00 AM EST, Tablet, [facility] #[id number], Partial fill upon patient request if the [...] Refills, Maintenance, 09/20/24 5:00:00 PM EST, Solution, [facility] #[id number], Partial fill upon patient request if the [...] 4 Refills, Maintenance, 09/20/24 2:29:00 PM EST, [facility] #[id number], increased dose, replacing metformin 750 mg. please [...] 3 Refills, Maintenance, 09/12/23 10:39:00 AM EST, [facility] #[id number], Partial fill upon patient request if the prescription is for a schedule II opioid drug., 182.8, cm, 09/07/23 10:08:00 EST, Height, 90, kg, 02/19/23 12:28:00 EDT, Dry Weight Start Date: 09/12/23 Status: Ordered Quantity: 60.0 Unit: capsule Repeat number: 4 Indication: Gastro-esophageal reflux disease without esophagitis Pen [place], 32 G x 4 mm BD Ultra [...] Refills, Maintenance, 10/31/24 8:29:00 AM EST, Tablet, [facility] #[id number], Partial fill upon patient request if the [...] Care Nurse Name: Osvaldo El RN Position: [facility] RN Supv Member Role: Primary Care Nurse Name: Opal Barker RN Position: [facility] RN Member Role: Primary Care Nurse Name: Shahnaz Lema RN Position: [facility] RN Member Role: Primary Care Nurse Name: Christine De MD Position: Reference Physician Member Role: PCP Address: [address] [place] [address]- Telecom: Name: Aren Hoskins MD Position: [facility] Outreach Member Role: Lifetime Consulting Physician Address: [address] [place] [address] [address] [facility] [place] [address]- [place] Telecom: Name: Wen Junior RN Position: [facility] RN Member Role: Primary Care Nurse Name: Татьяна Lane LPN Position: [facility] RN Member Role: Primary Care Nurse Care Team Related Persons Name: BREANN ROTH Name: CASPER BENNETT Insurance Providers Guarantor name: ORIN [facility] Health Plan Information #: 1 Payer: [facility]/ONE CARE Member Number: NA Policy Number: NA Group Number: NA
--- OUTSIDE RECORDS SUMMARY | 2024-11-02 12:02 | XMS_ITS | Continuity of Care Document ---
Author Organization [facility] Address [address] [place] [address]- Care Team Providers Care Senior Asic Engineer Name Role Phone Santino KRAUSE, Christine Gutierrez Primary Care Physician Encounter [facility] Date(s): 10/01/24 - 10/31/24 [facility] [address] [place] [address] Encounter Type: Triage Allergies, Adverse Reactions, Alerts Substance Criticality Severity Reaction Reaction Severity Status morphine Active penicillins 1 Active Jardiance Active sulfa drugs Active Contrast Dye Active [...] 9:24:00 AM EST, Route to Pharmacy Electronically, [facility] #[id number], Partial fill upon patient request if the [...] Refills, Maintenance, 10/02/24 3:05:00 PM EST, CRTablet, [facility] #[id number], Partial fill upon patient request if the prescription is for a schedule II opioid drug., 183, cm, 10/02/24 8:02:00 EST, Height, 108.5, kg, 10/01/24 18:00:00 EST, Dry Weight Start Date: 10/02/24 Status: Ordered Quantity: 30.0 Unit: tablet Repeat number: 9 DexCom G7 Second Chef DexCom G7 Second Chef, See Instructions, # 1 each, Refills 0, [...] 0 Refills, Maintenance, 08/28/24 6:45:00 PM EST, [facility] #[id number], Partial fill upon patient request if the prescription is for a schedule II opioid drug., Per instructions from GI., 183, cm, 08/28/24 15:05:00 EST, Height, 93, kg, 05/31/24 10:43:00 EDT, Dry Weight Start Date: 08/28/24 Status: Ordered Quantity: 4000.0 Unit: mL Repeat number: 1 Indication: Encounter for screening for malignant neoplasm of colon Lanjanett Sollenyar Pen 100 units/mL subcutaneous solution = 26 units, Subcutaneous Injection, Daily at bedtime, rotate injection sites, # 15 mL, 11 Refills, Maintenance, 12/19/24 2:28:00 PM EST, Solution, [facility] #[id number], increased dose, 183, cm,09/20/24 13:42:00 EST, Height, 110, kg, 08/29/24 14:11:00 EST, Dry Weight Start Date: 09/20/24 Status: Ordered Quantity: 15.0 Unit: mL Repeat number: 12 lisinopril 30 mg oral tablet 1 tablet = 30 mg, By Mouth, Daily, # 90 tablet, 3 Refills, Maintenance, 10/31/24 9:24:00 AM EST, Tablet, [facility] #[id number], Partial fill upon patient request if the [...] Refills, Maintenance, 09/20/24 5:00:00 PM EST, Solution, [facility] #[id number], Partial fill upon patient request if the [...] 4 Refills, Maintenance, 09/20/24 2:29:00 PM EST, [facility]06007, increased dose, replacing metformin 750 mg. please [...] 3 Refills, Maintenance, 09/12/23 10:39:00 AM EST, [id number], Partial fill upon patient request if the prescription is for a schedule II opioid drug., 182.8, cm, 09/07/23 10:08:00 EST, Height, 90, kg, 02/19/23 12:28:00 EDT, Dry Weight Start Date: 09/12/23 Status: Ordered Quantity: 60.0 Unit: capsule Repeat number: 4 Indication: Gastro-esophageal reflux disease without esophagitis Pen [place], 32 G x 4 mm BD Ultra [...] Refills, Maintenance, 10/31/24 8:29:00 AM EST, Tablet, [facility] #76982, Partial fill upon patient request if the [...] Care Nurse Name: Osvaldo El RN Position: S RN Supv Member Role: Primary Care Nurse Name: Opal Barker RN Position: S RN Member Role: Primary Care Nurse Name: Shahnaz Lema RN Position: S RN Member Role: Primary Care Nurse Name: Santino KRAUSE, Christine Gutierrez Position: Reference Physician Member Role: PCP Address: [address] [place] [address]- [place] Telecom: Name: Aren Hoskins MD Position: [facility] Outreach Member Role: Lifetime Consulting Physician Address: [address] [facility] [address] [facility] [place] [address]- [place] Telecom: Name: Wen Junior RN Position: S RN Member Role: Primary Care Nurse Name: Татьяна Lane LPN Position: S RN Member Role: Primary Care Nurse Care Team Related Persons Name: BREANN ROTH Name: CASPER BENNETT Insurance Providers Guarantor name: ORIN BENNETT Health Plan Information #: 1 Payer: [facility] ALLIANCE/ONE CARE Member Number: NA Policy Number: NA Group Number: NA
--- OUTSIDE RECORDS SUMMARY | 2024-11-02 12:02 | XMS_ITS | Encounter Summary ---
Author Organization [facility] Address [address] [facility] [address] [place] [address] Phone Care Team Providers Care Hooker Laster Name Role Phone Татьяна Haynes MD Primary Care Provider + Encounter Details Date Type Department Care Team ([facility] Contact Info) Description 10/15/2024 Refill [facility] [address] [facility] [address] [place] [phone] Sunshine Tenorio MA [address] [facility] [address] [place] [address] Social History Tobacco Use Types Packs/Day Years [...] on file documented as of this encounter Plan of Treatment Upcoming Encounters Date Type Department Care Team (Late Contact Info) Description 10/17/2025 9:00 AM EST Office Visit [facility] [address] [facility] [address] [place] [address] Paz Dee ARNP [address] [facility] [address] [place] [address] documented as of this encounter Visit Diagnoses Not on filedocumented in this encounter Care Teams Hooker Laster Relationship Specialty Start Date End Date Татьяна Haynes MD [address] [address] PCP - General Internal Medicine 01/25/23 documented as of this encounter
--- OUTSIDE RECORDS SUMMARY | 2024-11-02 12:02 | XMS_ITS | Continuity of Care Document ---
Author Organization [facility] ter Address [address] [place] [address]- Care Team Providers Care Lathmaker Name Role Phone Christine De MD Primary Care Physician [facility] [id number] Date(s): 07/23/24 - 11/01/[address] [address]- Attending Physician: Myriam Morris MD Admitting Physician: Myriam Morris MD Referring Physician: Christine De MD Encounter Type: Pre-Outpt Allergies, Adverse Reactions, [...] 9:24:00 AM EST, Route to Pharmacy Electronically, [facility] #[id number], Partial fill upon patient request if the [...] Refills, Maintenance, 10/02/24 3:05:00 PM EST, CRTablet, [facility] #[id number], Partial fill upon patient request if the prescription is for a schedule II opioid drug., 183, cm, 10/02/24 8:02:00 EST, Height, 108.5, kg, 10/01/24 18:00:00 EST, Dry Weight Start Date: 10/02/24 Status: Ordered Quantity: 30.0 Unit: tablet Repeat number: 9 DexCom G7 Clearance Representative DexCom G7 Clearance Representative, See Instructions, # 1 each, Refills 0, [...] 0 Refills, Maintenance, 08/28/24 6:45:00 PM EST, [facility] #[id number], Partial fill upon patient request if the [...] Refills, Maintenance, 09/20/24 2:28:00 PM EST, Solution, [facility] #[id number], increased dose, 183, cm,09/20/24 13:42:00 EST, Height, 110, kg, 08/29/24 14:11:00 EST, Dry Weight Start Date: 09/20/24 Status: Ordered Quantity: 15.0 Unit: mL Repeat number: 12 lisinopril 30 mg oral tablet 1 tablet = 30 mg, By Mouth, Daily, # 90 tablet, 3 Refills, Maintenance, 10/31/24 9:24:00 AM EST, Tablet, [facility] #[id number], Partial fill upon patient request if the [...] Refills, Maintenance, 09/20/24 5:00:00 PM EST, Solution, [facility] #[id number], Partial fill upon patient request if the [...] 4 Refills, Maintenance, 09/20/24 2:29:00 PM EST, [facility] #[id number], increased dose, replacing metformin 750 mg. please [...] 3 Refills, Maintenance, 09/12/23 10:39:00 AM EST, [facility] #19349, Partial fill upon patient request if the prescription is for a schedule II opioid drug., 182.8, cm, 09/07/23 10:08:00 EST, Height, 90, kg, 02/19/23 12:28:00 EDT, Dry Weight Start Date: 09/12/23 Status: Ordered Quantity: 60.0 Unit: capsule Repeat number: 4 Indication: Gastro-esophageal reflux disease without esophagitis Pen [place], 32 G x 4 mm BD Ultra [...] Refills, Maintenance, 10/31/24 8:29:00 AM EST, Tablet, [facility] #[id number], Partial fill upon patient request if the [...] Care Nurse Name: Osvaldo El RN Position: [facility] RN Supv Member Role: Primary Care Nurse Name: Opal Barker RN Position: S RN Member Role: Primary Care Nurse Name: Shahnaz Lema RN Position: [facility] RN Member Role: Primary Care Nurse Name: Christine De MD Position: Reference Physician Member Role: PCP Address: [address] [place] [address]- Telecom: Name: Aren Hoskins MD Position: [facility] Outreach Member Role: Lifetime Consulting Physician Address: [address] [facility] [address] [facility] [place] [address]- [place] Telecom: Name: Wen Junior RN Position: [facility] RN Member Role: Primary Care Nurse Name: Татьяна Lane LPN Position: [facility] RN Member Role: Primary Care Nurse Care Team Related Persons Name: BREANN ROTH Name: CASPER BENNETT Insurance Providers Guarantor name: ORIN MILESES Health Plan Information #: 1 Payer: [facility]/ONE CARE Member Number: [id number] Policy Number: NA Group Number: [facility] Health Plan Information #: 2 Payer: [facility] [employer] [employer] C[employer] Member Number: [id number] Policy Number: NA Group Number: NA
--- OUTSIDE RECORDS SUMMARY | 2024-11-02 12:02 | XMS_ITS | Clinical Summary ---
Author Organization [facility] Address [address] [place] [address] Care Team Providers Care Director Of Diagnostic Imaging Name Role Phone Unavailable Primary Care Provider Unavailabl e Source Comments PLEASE NOTE, if this patient is a minor, it may be UNLAWFUL to discuss sensitive information that is contained in these records (such as FAMILY PLANNING, MENTAL HEALTH or SUBSTANCE ABUSE) with the minor patient's parent or other person without the patient's specific authorization.[facility] Allergies Active Allergy Reactions Criticality Noted Date Comments Iodinated Contrast Media 12/22/2021 Sulfa (Sulfonamide Antibiotics) 06/03 Medications cyclobenzaprine (FLEXERIL) 10 mg tablet Take 1 tablet twice a day for 7 days. Do not consume before driving a vehicle. 14 Tablet 12/26/2020 Active armodafiniL 50 mg tab Take 1 Tablet by mouth every morning 04/13/2024 Active Active Problems No known active problems Social History Tobacco Use Types Packs/Day Years Used Date Smoking Tobacco: Never Smokeless Tobacco: Never Tobacco Cessation:Counseling Given: Not Answered Social Connections Answer Date Recorded Connectedness 0 06/14/2024 Financial Resource Strain Answer Date R ecorded Financial Resource Strain 0 2021 Stress Answer Date Recorded Stress 0 08/17/2022 Physical Activity Answer Date Recorded Physical Activity 0 08/17/2022 Food Insecurity Answer Date Recorded Food 0 06/28/2024 Transportation Needs Answer Date Record ed Transportation 0 08/17/2022 Housing Stability Answer Date Recorded Housing 0 08/17/2022 Safety and Environment Answer Date Jatinder rded Safety 0 08/17/2022 Utilities Answer Date Recorded Utilities 0 08/17/2022 Employment Answer Date Recorded Stress 0 06/14/2024 Sex and Gender Information Value Date Recorded Sex Assigned at Not on file Legal Sex Male 11:40 AM PST Gender Identity Not on file Sexual Orientation Not on file Last Filed Vital Signs Vital Sign Reading Time Taken Comments Blood Pressure 140/72 06/27/2024 1:06 PM EDT Pulse 61 06/27/2024 1:06 PM EDT Temperature - - Respiratory Rate - - Oxygen Saturation - - Inhaled Oxygen Concentration - - Weight - - Height - - Body Mass Index - - Plan of Treatment Upcoming Encounters Date Type Department Care Team (Late st Contact Info) Description 12/28/2024 9:40 AM EDT Office Visit [facility] [address] [place] [id number] [address] [place] [address] Health Maintenance Due Date Last Done Comments Hepatitis C Screening 1966 Lipid Screening 1966 HIV Screening 1981 Medicare Annual Wellness Visit 1984 Imm-DTaP/Tdap/Td (1 - Tdap) 1985 Imm-Hepatitis B (1 of 3 - 19 + 3-dose series) 1985 CT Colonography 2011 Colonoscopy 2011 Colorectal Cancer Screening 2011 FIT/gFOBT 2011 Fecal DNA 2011 Flexible Sigmoidoscopy 2011 Imm-Zoster, Recombinant (1 of 2) 2016 Dental Perio Charting 02/17/2024 02/14/2023, 022 [id number] ( season) 2024 Imm-Influenza (#1) 2024 07/10/2020, 07/03/2019 Alcohol and Drug Screen 10/03/2024 Depression Annual Screen 10/03/2024 Hypertension Screening (#1) 06/27/2025 Tobacco Screening 06/28/2025 06/28/2024 Dental BW 06/30/2025 06/28/2024, 01/31, 08/17/2022 Dental Examination 06/30/2025 06/28/2024, 0 02/14/2023, 08/17/2022 Dental Prophy 06/30/2025 06/28/2024, 01/31, 08/17/2022 Diabetes Screening 03/11/2026 03/11/2023 Dental FMX/Pano 02/17/2028 02/14/2023 Procedures Procedure Name Priority Date/Time Associated Diagnosis Comments BITEWINGS - FOUR RADIOGRAPHIC IMAGES Routine 06/28/2024 11:00 AM EDT Encounter for dental examination and cleaning without abnormal findings PROPHYLAXIS - ADULT Routine 06/28/2024 1 1:00 AM EDT Encounter for dental examination and cleaning without abnormal findings PERIODIC ORAL EVALUATION ESTABLISHED PATIENT Routine 06/28/2024 11:00 AM EDT Encounter for dental examination and cleaning without abnormal findings COMP PERIODONTAL EVALUATION - NEW/EST PATIENT Routine 02/14/2023 1:40 PM EDT Periodontal disease INTRAORAL - COMP SERIES OF RADIOGRAPHIC IMAGES Routine 02/14/2023 1:40 PM EDT Periodontal disease from Last 3 Months or Most Recently Relevant to Health Maintenance Insurance [facility]
--- NOTE | 2024-11-02 12:05 | MHC.OFFVIS ---
Vital Signs 11/02/24 12:06 Height 6 ft Weight 244 lb BMI 33.1 Pulse 62 Pulse Source Pulse Oximeter Pulse Oximetry (%) 98 Oxygen Delivery Method Room Air Intake Visit Reasons: rotator cuff repair with Dr. Son 11/13/24 Senior Engineering Manager Required: No Clean Rice Grader And Reel Tender: Clean Rice Grader And Reel Tender offered & declined Accompanied by: Self / Same As Patient Allergies empagliflozin [From Jardiance] Allergy (Severe, Verified 11/02/24 12:09) Itching morphine [Morphine] Allergy (Severe, Verified 11/02/24 12:09) HIVES, THROAT CLOSES penicillin G [Penicillin G] Allergy (Severe, Verified 11/02/24 12:09) ANAPHYLAXIS Sulfa (Sulfonamide Antibiotics) [SULFA (SULFONAMIDE ANTIBIOTICS)] Allergy (Severe, Verified 11/02/24 12:09) ANAPHYLAXIS Gadolinium-Containing Contrast Medi [Gadolinium-Containing Agents] Allergy (Intermediate, Verified 11/02/24 12:09) Hives/Rash, dizziness, blue spots adhesive tape Adverse Reaction (Intermediate, Verified 11/02/24 12:09) Rash tramadol Adverse Reaction (Intermediate, Verified 11/02/24 12:09) Gastrointestinal Upset Medication List - Last Reconciled 11/02/24 by Janell Blankenship LPN [acetaminophen .] albuterol sulfate 90 mcg/actuation (Ventolin HFA) 2 puffs inhalation QID PRN 30 days allopurinol 300 mg PO DAILY amlodipine 10 mg PO DAILY armodafinil (Nuvigil) 100 mg (2 x 50 mg) PO QAM 30 days aspirin 81 mg PO DAILY azelastine 2 sprays intranasal BID 30 days blood sugar diagnostic (FreeStyle Lite Strips) 4 times a day blood-glucose meter (FreeStyle Lite Meter kit) As directed 4x/day ctsmoyvetg-kppmsdtz-jrioucjfek 160-9-4.8 mcg/actuation (Breztri Aerosphere) 2 inhalations inhalation BID 30 days carboxymethylcellulose sodium 0.5% (Refresh Tears) 1 drp ophthalmic (eye) BID cholecalciferol (vitamin D3) 50 mcg PO DAILY Dexcom G7 Sensor (blood-glucose sensor) As directed NS dulaglutide (Trulicity) 1.5 mg (0.5 mL) subcut QWEEK ezetimibe 10 mg PO DAILY flash glucose scanning reader (FreeStyle E[place]ida 2 [place]) As directed flash glucose sensor (FreeStyle Eneida 2 Sensor kit) As directed every 2 weeks fluoxetine 40 mg PO DAILY 90 days insulin glargine (Lantus Solostar U-100 Insulin) 22 units (0.22 mL) subcut QPM lancets (FreeStyle Lancets) 4 times a day lidocaine 5% (Lidoderm) 1 patch topical DAILY 30 days lisinopril 30 mg (3 x 10 mg) PO DAILY melatonin 5 mg PO BEDTIME PRN 30 days metformin ER 750 mg PO BID metoprolol succinate ER 25 mg PO DAILY mometasone-formoterol 200-5 mcg/actuation (Dulera) 2 puffs inhalation Q12H 30 days omeprazole 40 mg PO BID ondansetron HCl 4 mg PO Q8H pen needle, diabetic As directed pioglitazone (Actos) 30 mg PO DAILY potassium citrate ER 1,620 mEq PO BID pregabalin 150 mg PO BID rosuvastatin 40 mg PO DAILY sodium chloride-aloe vera (Shoals Saline Gel nasal spray) 1 spray intranasal BID 30 days tamsulosin 0.4 mg PO DAILY HPI HPI rotator cuff repair with Dr. Son 11/13/24: Details: Mohit is a pleasant 59 year old male, never smoker, with underlying asthma, COPD, HTN, DMII, SONY on CPAP, CAD and h/o TIAs. He is under the care of Dr. Saba and presents today for preoperative pulmonary evaluation for proposed rotator cuff repair with Dr. Son 11/13/24. At baseline, is well controlled on Breztri, rarely requiring albuterol. He denies any recent URIs or need for prednisone/abx. He denies any prior need for supplemental oxygen other than hospitalizations. He has been reportedly compliant with CPAP therapy for SONY. Prior PFT and CXR unremarkable. He currently denies any respiratory symptoms. [facility] Medical History Has daytime drowsiness Allergies History of anesthesia complications Family history of anesthesia complication Type 2 diabetes mellitus Murmur COPD (chronic obstructive pulmonary disease) Lumbar post-laminectomy syndrome Degenerative cervical spinal stenosis Neuropathic pain COVID-19 Chest pain Post herpetic neuralgia Pleuritic chest pain Obesity (BMI 30-39.9) Asthma Pneumonia SONY (obstructive sleep apnea) [id number] syndrome Reactive airway disease On beta mitra at home History of pneumonia Vitamin D deficiency Left nephrolithiasis Dyslipidemia Diabetic polyneuropathy associated with type 2 diabetes mellitus Hypogonadism Failed back syndrome of lumbar spine Arthritis Back pain GERD (gastroesophageal reflux disease) History of fatty infiltration of liver History of ADHD Depression Elevated cholesterol HTN (hypertension) CAD (coronary artery disease) History of 2019 novel coronavirus disease (COVID-19) Cervical radiculopathy Nephrolithiasis Surgical History Hx of cardiac catheterization S/P cardiac catheterization History of kidney surgery Gynecomastia History of elbow surgery Hx laparoscopic cholecystectomy History of carpal tunnel release Hx of shoulder surgery Hx of arthroscopic knee surgery History of esophagogastroduodenoscopy (EGD) H/O colonoscopy Hx of lumbar discectomy Family History (Updated 10/15/24 @ 14:26 by Amy Conley CMA) Father Diabetes Hypertension Myocardial infarction Mother Diabetes Stroke Alzheimers disease Pacemaker Brother Diabetes Heart problem Myocardial infarction Sister Myocardial infarction Maternal Grandmother Myocardial infarction Unknown No problems noted. Social History (Updated 10/15/24 @ 14:25 by Amy Conley CMA) Household Members: Spouse and Family Housing: Apartment Are you a primary residential caregiver to a significant other at home: No Do you presently have visiting nurse or other home services: No Alcohol intake: never Patient Tobacco Use Status: Never used Tobacco e-Cigarette/Vaping Use: Never Used Second Hand Smoke Exposure: No Advance Directives Date on File: 09/28/23 service: No Current occupational status: disabled Cognitive needs: No Hearing needs: No Vision needs: No Review of Systems Const Denies chills, Denies excessive sweating, Denies fever(s), Denies headache(s) and Denies night sweats Eyes Denies dry eyes, Denies irritation and Denies itchy eyes ENT Reports Normal hearing present, Denies headache(s), Denies nasal congestion, Denies nasal discharge, Denies post nasal drip and Denies sore throat Card Denies chest pain, Denies chest pain at rest, Denies chest pain with activity, Denies claudication, Denies leg edema, Denies dyspnea, Denies dyspnea on exertion, Denies orthopnea and Denies paroxysmal nocturnal dyspnea Resp Denies chest congestion, Denies cough, Denies excessive phlegm production, Denies pain on inspiration, Denies pain with cough, Denies dyspnea, Denies dyspnea on exertion, Denies stridor and Denies wheezing Musc Denies myalgias Neuro Reports Normal hearing present and Denies headache(s) Endo Denies excessive sweating Tejas/Lymph Denies lymphadenopathy Aller/Immun Denies itchy eyes, Denies seasonal rhinorrhea and Denies wheezing Physical Exam Vital Signs: Last Vital Signs Pulse 62 11/02/24 12:06 Pulse Ox 98 11/02/24 12:06 Oxygen Delivery Method Room Air 11/02/24 12:06 BMI result Body Mass Index 33.1 Const General: cooperative, healthy appearing, comfortable, no acute distress, well developed and alert Nutritional Appearance: obese Orientation/consciousness: patient oriented x3 Limitations: no limitations HEENT Head: Yes normal to inspection, Yes normocephalic and Yes atraumatic Ears: hearing grossly normal bilaterally and external ears normal Eyes General: appearance normal, both eyes and all related structures Eyelids: Yes eyelids normal Sclerae: sclerae normal EOM: EOMs intact bilaterally Neck Neck: Yes normal visual inspection and Yes no lymphadenopathy Lymphatic: no lymphadenopathy noted Chest Chest palpation & inspection: normal inspection of the chest Resp Effort & Inspection: normal respiratory effort, able to speak in complete sentences, no audible wheezes, no cough, no stridor, not tachypneic, no tripod positioning and no use of accessory muscles Auscultation: clear to auscultation bilaterally Cardio Jugular venous distension: no JVD Rate: regular rate Rhythm: regular rhythm Skin Other: warm, dry General skin exam: no rashes or lesions noted Neuro General: patient oriented x3 Cranial nerves: Yes Normal hearing present Cognition (Neuro): normal cognition Gait exam (Neuro): Normal gait present Extrem General: Yes normal to inspection, Yes capillary refill normal, Yes no clubbing, cyanosis or edema and Yes no pedal edema Psych Appearance: grossly normal and well kempt Speech and movement: Normal speech and movement present and Clear speech present Affect: normal affect Attitude: cooperative Thought process: Normal thought process present Thought content: Normal thought content present Insight: Good insight present (Psych) Judgement: Good judgement present (Psych) Assessment & Plan Assessment & Plan (1) Asthma: Code(s): J45.909 - Unspecified asthma, uncomplicated Category: Medical Qualifiers: Asthma severity: moderate Asthma persistence: persistent Asthma complication type: uncomplicated Qualified Code(s): J45.40 - Moderate persistent asthma, uncomplicated (2) SONY (obstructive sleep apnea): Code(s): G47.33 - Obstructive sleep apnea (adult) (pediatric) Category: Medical (3) [id number] syndrome: Code(s): B94.8 - Sequelae of other specified infectious and parasitic diseases Category: Medical (4) Encounter for preoperative pulmonary examination: Code(s): Z01.811 - Encounter for preprocedural respiratory examination Category: Medical Plan Mohit presents for preoperative pulmonary evaluation for proposed rotator cuff repair. He denies respiratory symptoms at this time, repiratory exam unremarkable and VSS WNL. Recent CXR negative for acute processes. He has been doing quite well on Breztri and is medically optimized from a pulmonary prospective.?He has not required steroids or antibiotics in the last three months. At this time, he is considered low risk for perioperative pulmonary complications. Consider bronchodilators during the perioperative period. All questions were answered and patient is in agreement of plan. Will follow up for regularly scheduled appointment with Dr. Saba or sooner if needed. Coding Level of Care Code Est Pt Level 4 (57553) Diagnoses Moderate persistent asthma without complication J45.40 Asthma severity: moderate Asthma persistence: persistent Asthma complication type: uncomplicated SONY (obstructive sleep apnea) G47.33 [id number] syndrome B94.8 Encounter for preoperative pulmonary examination Z01.811
[2024-11-02 12:06] VITALS: PULSE 62; O2SAT 98; BMI 33.1
== END 2024-11-02 12:35 | disposition home or self-care (01) ==
PROVIDERS: PCP Internal Medicine; Visit Provider Nurse Practitioner Family
DX: J45.40 Moderate persistent asthma, uncomplicated (principal); G47.33 Obstructive sleep apnea (adult) (pediatric); B94.8 Sequelae of other specified infectious and parasitic diseases; Z01.811 Encounter for preprocedural respiratory examination
CPT/HCPCS: 99214

== ENCOUNTER → 2024-11-02 11:14 | Outpatient (BNVA) | payer OTHER, SELFPAY | PROVIDERS: PCP Internal Medicine; Visit Provider Nurse Practitioner Family | DX: Z01.811 Encounter for preprocedural respiratory examination (principal); J44.9 Chronic obstructive pulmonary disease, unspecified; J45.40 Moderate persistent asthma, uncomplicated; G47.33 Obstructive sleep apnea (adult) (pediatric); B94.8 Sequelae of other specified infectious and parasitic diseases; Z99.89 Dependence on other enabling machines and devices; Z86.73 Personal history of transient ischemic attack (TIA), and cerebral infarction without residual deficits | CPT/HCPCS: 99212 ==

== ENCOUNTER 2024-11-10 11:37 | Outpatient (REF) | payer OTHER, SELFPAY ==
--- NOTE | ~2024-11-10 | XR_ITS ---
CLINICAL HISTORY: R05.9 - Cough, unspecified 2 view chest x-ray Comparison: None Findings: No consolidation or effusion. Heart size is normal. No acute fracture. IMPRESSION: 1. No acute findings. This document has been electronically signed by: Maximino Wyman MD on 11/10/2024 15:15:35
[2024-11-10 14:34] LABS: Binax Internal Control QC Valid; Binax Lot number: 869104; Binax Now Covid-19 Ag Negative (Negative); Binax Performed by: HO.BONILM
[2024-11-10 16:03] LABS: Influenza A PCR POSITIVE (Negative); Influenza B PCR NEGATIVE (Negative); Resp Syncy Virus RNA Qual PCR NEGATIVE (Negative); SARS COV2 PCR INHOUSE NEGATIVE (Negative)
== END 2024-11-10 11:38 | disposition home or self-care (01) ==
LOC: HO.HMGCX 11:37
PROVIDERS: PCP Internal Medicine; Visit Provider Physician Assistant Medical
DX: B34.9 Viral infection, unspecified (principal); R05.9 Cough, unspecified; R09.89 Other specified symptoms and signs involving the circulatory and respiratory systems; Z20.822 Contact with and (suspected) exposure to COVID-19; Z86.16 Personal history of COVID-19
CPT/HCPCS: 0241U; 71046; 87811; 99212

== ENCOUNTER 2024-11-10 11:37 | Outpatient (AMB) | payer OTHER, SELFPAY ==
[2024-11-10 13:43] VITALS: BP 136/76; PULSE 65; RESP 15; TEMP 37.3; O2SAT 97; BMI 32.3
--- NOTE | 2024-11-10 13:43 | MHC.OFFWIV ---
Intake Vital Signs 11/10/24 13:43 Height 6 ft Weight 238 lb BMI 32.3 BP 136/76 Blood Pressure Location Lt brachial Position Sitting Respiration 15 Pulse 65 Pulse Source Pulse Oximeter Temp 99.1 F Temp Source Oral Pulse Oximetry (%) 97 Oxygen Delivery Method Room Air Intake Visit Reasons: EP-body ache, congestion, cough, chills Intake Note: Pt is here today c/o bodyaches,chest congestion, cough and chills x2days: Family member that lives with recently tested positive for influenza Patient Tobacco Use Status: Never used Tobacco Allergies empagliflozin [From Jardiance] Allergy (Severe, Verified 11/10/24 13:49) Itching morphine [Morphine] Allergy (Severe, Verified 11/10/24 13:49) HIVES, THROAT CLOSES penicillin G [Penicillin G] Allergy (Severe, Verified 11/10/24 13:49) ANAPHYLAXIS Sulfa (Sulfonamide Antibiotics) [SULFA (SULFONAMIDE ANTIBIOTICS)] Allergy (Severe, Verified 11/10/24 13:49) ANAPHYLAXIS Gadolinium-Containing Contrast Medi [Gadolinium-Containing Agents] Allergy (Intermediate, Verified 11/10/24 13:49) Hives/Rash, dizziness, blue spots adhesive tape Adverse Reaction (Intermediate, Verified 11/10/24 13:49) Rash tramadol Adverse Reaction (Intermediate, Verified 11/10/24 13:49) Gastrointestinal Upset hydromorphone [From Dilaudid] Adverse Reaction (Verified 11/10/24 13:49) Anaphylaxis HPI EP-body ache, congestion, cough, chills HPI Details Patient is a 59-year-old male with diabetes and apparent lung damage from COVID as well as multiple other comorbidities and who is undergoing Holter monitoring, comes to the walk-in clinic reporting that his daughter who lives with him recently tested positive with flu, and he has had 2 days now of body aches, cough, sore throat, chills, and nasal congestion. No documented fever, nausea vomiting or diarrhea, malaise, headache, dizziness or weakness, ear pain or discharge from the ears, hearing changes, shortness of breath, chest pain, or other significant associated symptoms. He has not yet tested for flu and requests this today. He did not do home rapid COVID testing. [facility] Medical History Difficulty swallowing RSV (respiratory syncytial virus infection) Has daytime drowsiness Allergies History of anesthesia complications Family history of anesthesia complication Type 2 diabetes mellitus Murmur COPD (chronic obstructive pulmonary disease) Lumbar post-laminectomy syndrome Degenerative cervical spinal stenosis Neuropathic pain COVID-19 Chest pain Post herpetic neuralgia Pleuritic chest pain Obesity (BMI 30-39.9) Asthma Pneumonia SONY (obstructive sleep apnea) [id number] syndrome Reactive airway disease On beta mitra at home History of pneumonia Vitamin D deficiency Left nephrolithiasis Dyslipidemia Diabetic polyneuropathy associated with type 2 diabetes mellitus Hypogonadism Failed back syndrome of lumbar spine Arthritis Back pain GERD (gastroesophageal reflux disease) History of fatty infiltration of liver History of ADHD Depression Elevated cholesterol HTN (hypertension) CAD (coronary artery disease) History of 2019 novel coronavirus disease (COVID-19) Cervical radiculopathy Nephrolithiasis Surgical History S/P cardiac catheterization Gynecomastia History of elbow surgery Hx laparoscopic cholecystectomy History of carpal tunnel release Hx of shoulder surgery Hx of arthroscopic knee surgery History of esophagogastroduodenoscopy (EGD) H/O colonoscopy Hx of lumbar discectomy Hx of cardiac catheterization Family History Father Diabetes Hypertension Myocardial infarction Mother Diabetes Stroke Alzheimers disease Pacemaker Brother Diabetes Heart problem Myocardial infarction Sister Myocardial infarction Maternal Grandmother Myocardial infarction Unknown No problems noted. Social History Household Members: Spouse and Family Housing: Apartment Are you a primary primary care md to a significant other at home: No Do you presently have visiting nurse or other home services: No Alcohol intake: never Patient Tobacco Use Status: Never used Tobacco e-Cigarette/Vaping Use: Never Used Second Hand Smoke Exposure: No Advance Directives Date on File: 09/28/23 service: No Current occupational status: disabled Cognitive needs: No Hearing needs: No Vision needs: No Review of Systems Const All systems reviewed & are unremarkable except as noted in HPI and below Physical Exam Vital Signs: Last Vital Signs Temp 99.1 F 11/10/24 13:43 Pulse 65 11/10/24 13:43 Resp 15 11/10/24 13:43 BP 136/76 11/10/24 13:43 Pulse Ox 97 11/10/24 13:43 Oxygen Delivery Method Room Air 11/10/24 13:43 BMI result Body Mass Index 32.3 Const General: cooperative, comfortable, no acute distress, alert, awake, Physically active, ill appearing, tired appearing and well groomed; No anxious, diaphoretic, intoxicated appearing or poor hygiene Nutritional Appearance: average body habitus Orientation/consciousness: patient oriented x3 Limitations: no limitations HEENT Head: Yes normal to inspection, Yes normocephalic and Yes atraumatic Ears: hearing grossly normal bilaterally, external ears normal, TM's normal bilaterally and EAC's normal General nose exam: Normal external nose present and Normal septum present Face and sinus: Yes normal facial exam, Yes sinuses nontender and Yes face symmetric Mouth: Normal oral and palatal mucosa present, lip normal and tongue normal Throat: Yes abnormal tonsil (mildly erythematous bilaterally), No peritonsillar mass, No postnasal drainage, No uvular edema and No cobblestoning Eyes General: appearance normal, both eyes and all related structures Neck Neck: Yes normal visual inspection, Yes no lymphadenopathy, Yes trachea midline, Yes supple and No anterior neck swelling Resp Effort & Inspection: normal respiratory effort, able to speak in complete sentences, no audible wheezes, Actively coughing (Occasional dry cough) Quality: dry, no grunting, not labored, no nasal flaring, no retractions and symmetric chest movement Auscultation: clear to auscultation bilaterally, no crackles, no rales, no rhonchi, no wheezes, lung sounds not diminished and No rub present Cardio Palpation: normal PMI Rate: regular rate Rhythm: regular rhythm Heart sounds: S1 normal heart sound present and S2 normal heart sound present Skin Other: Good color, warm and dry Neuro General: patient oriented x3 Psych Appearance: grossly normal Mental Status: mental status grossly normal Speech and movement: Normal speech and movement present Affect: normal affect Attitude: cooperative Thought process: Normal thought process present Insight: Good insight present (Psych) Judgement: Good judgement present (Psych) Results Reviewed Results Reviewed: Plain film two view chest x-ray today shows no discrete infiltrate suggestive of pneumonia, or acute cardiopulmonary disease on my wet read. Pending radiologist read Assessment & Plan Assessment & Plan (1) Viral illness: Code(s): B34.9 - Viral infection, unspecified Plan Patient is a 59-year-old male with diabetes and apparent lung damage from COVID, who is undergoing Holter monitoring, and comes to the walk-in clinic reporting that his daughter who lives with him recently tested positive with flu, and he has had 2 days now of body aches, cough, sore throat, chills, and nasal congestion. His plain film two view x-ray shows no obvious pneumonia or acute cardiopulmonary disease. His rapid COVID test was negative, and he is pending results of the flu COVID and RSV PCR panel. He is likely positive for flu, so I will write him for Tamiflu immediately so that there is no delay in him getting the medication. He is undergoing Holter testing for cardiac issues, and has extensive comorbidities, so limiting severe disease is important. I also wrote him for benzonatate trial for the cough. Orders: Orders XR chest 2V Today R05.9 - Cough, unspecified BinaxNOW Covid-19 Ag Today Z20.822 - Contact with and (suspected) exposure to COVID-19 SARS-CoV2/FLU/RSV Today R09.89 - Other specified symptoms and signs involving the circulatory and respiratory systems Medications: New oseltamivir (Tamiflu) 75 mg PO BID 5 days 10 caps 0RF benzonatate 200 mg PO BID-TID PRN 20 caps 0RF cough Coding Level of Care Code Est Pt Level 4 (78669) Diagnoses Viral illness B34.9
== END 2024-11-10 14:59 | disposition home or self-care (01) ==
PROVIDERS: PCP Internal Medicine; Visit Provider Physician Assistant Medical
DX: B34.9 Viral infection, unspecified (principal)

== ENCOUNTER → 2024-11-10 14:14 | Outpatient (BNV) | payer OTHER, SELFPAY | PROVIDERS: PCP Internal Medicine; Visit Provider Radiology Diagnostic Radiology | DX: R05.9 Cough, unspecified (principal) | CPT/HCPCS: 71046 ==

== ENCOUNTER 2024-11-10 14:17 | Outpatient (REF) | payer OTHER, SELFPAY ==
--- OUTSIDE RECORDS SUMMARY | 2024-11-10 14:19 | XMS_ITS | Encounter Summary ---
Author Organization [facility] Address [address] [place] [phone] Phone Care Team Providers Care Doll Eye Setter Name Role Phone Татьяна Haynes MD Primary Care Provider + Reason for Visit * Reason Comments Hypertension Encounter Details Date Type Department Care Team ([facility] Contact Info) Description 10/17/2024 1:30 PM EST Office Visit [facility] [address] [address] Paz Dee ARNP [address] [address] Hypertension (Primary Dx); Nephrolithiasis; Idiopathic [...] annual follow-up. He was seen in the [facility] ER on 10/01/24 for stroke symptoms with [...] He laos had a low urine volume [id number] in 24 hours. Last Renal U/S was 09/03/2022 showing resolution of [place] and no current stones. Last CT abd/pelvis [...] Coronary atherosclerosis of unspecified type of vessel, eklutna or graft COVID-19 Degeneration of cervical intervertebral [...] the skin every night Insulin Infusion Pump (Oodle G6 Control-IQ Ins Pump) device lisinopril 10 [...] 10/17/2025) for Next scheduled follow-up with BREEZY Wsie Cosigned by Mohit Lopez MD at 10/17/2024 3:35 PM EST documented in this encounter Plan of Treatment Upcoming Encounters Date Type Department Care Team (Late st Contact Info) Description 10/17/2025 9:00 AM EST Office Visit [facility] [address] [address] Paz Dee ARNP [address] [address] Scheduled Orders Name Type Priority [...] 1.30 mg/dL Phosphorus, Serum 3.6 eGFR Non-Afr Palestinian 103 Urine Specific [place] 1.015 Protein, UA Negative mg/dL 10/01/2024 Historical Provider LAB BLOOD ORDERABLES Angelita l Result documented in this encounter Visit Diagnoses Diagnosis Hypertension- Primary Nephrolithiasis Idiopathic chronic gout without tophus, not otherwise specified documented in this encounter Care Teams Doll Eye Setter Relationship Specialty Start [place] [address] [place] [id number] PCP - General Internal Medicine 01/25/23 documented as of this encounter
--- OUTSIDE RECORDS SUMMARY | 2024-11-10 14:19 | XMS_ITS | Patient Health Record ---
Author Organization [facility] Address [address] [place] [address] Care Team Providers Care Glass Artist Name Role Phone Darek Lani Primary Care Provider Unavailabl e Black, Margarita Unavailable [phone] Allergies Allergen (clinical drug ingredient) Drug/Non Drug [...] tive Ranitidine 1 tab Oral Active Umeclidinium [place] 62.5 MCG/INH 1 puff Inhalation Once a [...] primary osteoarthritis of the ankle and/or foot (759910867) Primary osteoarthritis, right ankle and foot (M19.071) Active confirmed Problem Polyneuropathy due to type 2 diabetes mellitus (971357555) Type 2 diabetes mellitus with diabetic polyneuropathy (E11.42) Active confirmed Problem [id number] 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 Plan Of Treatment Pending Test Test Name Order Date [id number] NAIL, 6 OR MORE 07/10/2020 13916-UAPFMKV NAIL, 6 OR MORE 01/08/2021 69484-WVECXLT NAIL, 6 OR MORE 04/13/2021 82680-ACMMQND NAIL, 6 OR MORE 09/07/2021 61748-RFWIBQF NAIL, 6 OR MORE 12/17/2021 11195-MWQBQRP NAIL, 6 OR MORE 03/22/2022 52029-LMXZMVU NAIL, 6 OR MORE 06/24/2022 12391-FIJUBHI NAIL, 6 OR MORE 09/23/2022 61292-JTZXJRV NAIL, 6 OR MORE 12/30/2022 59703-Ksqa Destruction, 1-14 12/30/2022 41885-Eyim Destruction, 1-14 09/23/2022 24628, J0702- INJECT or DRAIN, JOINT/BUR SA 12/17/2021 02297-RDTJ SKIN LESIONS, 2 TO 4 06/24/20 94366-MJTP SKIN LESIONS, 2 TO 4 12/31/19 35277-EDYH SKIN LESIONS, 2 TO 4 09/23/20 47753, X2050-KYHFM/INJECT, JOINT/BURSA 0 11/12/2019 14551, V2949-KPKGK/INJECT, JOINT/BURSA 0 03/22/2022 X ray : Ankle, right 3V 12/17/2021 Insurance Providers Payer Name Payer Address Payer Phone Subscriber Number Group Number Insured Name Patient Relationship to Insured Coverage Start Date Coverage End Date [facility] [employer] Claims [address] [place] [id number] [phone] [id number] Mohit Segovia Self - patient is the [...] gall bladder 11/07/2019 Hospitalization History Reason Date(Month/Year) [facility] 06/24
--- OUTSIDE RECORDS SUMMARY | 2024-11-10 14:20 | XMS_ITS | Clinical Summary ---
Author Organization [facility] Address [address] [place] [address] Care Team Providers Care Tack Maker Name Role Phone Unavailable Primary Care Provider [...] Description 12/28/2024 9:40 AM EDT Office Visit [facility] [address] [place] [phone] Paz Gay [address] [place] [address] Health Maintenance Due Date Last Done Comments [...] 2016 Dental Perio Charting 02/17/2024 02/14/2023, 022 Dyj-GRAZW-07 ( season) 2024 Imm-Influenza (#1) 2024 07/10/2020, [...] Most Recently Relevant to Health Maintenance Insurance [facility]
--- OUTSIDE RECORDS SUMMARY | 2024-11-10 14:20 | XMS_ITS | Encounter Summary ---
Author Organization [facility] Address [address] [facility] [address] [place] [address] Phone Care Team Providers Care Electric Clock Mechanic Name Role Phone Татьяна Haynes MD Primary Care Provider + Encounter Details Date Type Department Care Team ([facility] Contact Info) Description 10/15/2024 Refill [facility] [address] [facility] [address] [place] [phone] Sunshine Tenorio [place] [address] [facility] [address] [place] [address] Social History Tobacco Use Types [...] EST Office Visit [facility] [address] [facility] [address] [place] [address] Paz Dee ARNP [address] [facility] [address] [place] [address] documented as of this encounter Visit Diagnoses Not on filedocumented in this encounter Care Teams Electric Clock Mechanic Relationship Specialty Start Date End Date Татьяна Haynes MD [address] [address] PCP - General Internal Medicine 01/25/23 documented as of this encounter
--- OUTSIDE RECORDS SUMMARY | 2024-11-10 14:20 | XMS_ITS | Continuity of Care Document ---
Author Organization [facility] Address [address] [place] [address]- Care Team Providers Care Puddler Helper Name Role Phone Santino KRAUSE, Christine Gutierrez Primary Care Physician [phone] Encounter 10/11/24 - 11/02/24 [facility] [address] [place] [address] [facility] Disposition: CLIENT NO LONGER REQUIRES SKILLED CARE Encounter Type: Disch VNH Allergies, Adverse Reactions, Alerts Substance Criticality Severity [...] 9:24:00 AM EST, Route to Pharmacy Electronically, [facility] #[id number], Partial fill upon patient request if the [...] Refills, Maintenance, 10/02/24 3:05:00 PM EST, [facility], [facility] #[id number], Partial fill upon patient request if the prescription is for a schedule II opioid drug., 183, cm, 10/02/24 8:02:00 EST, Height, 108.5, kg, 10/01/24 18:00:00 EST, Dry Weight Start Date: 10/02/24 Status: Ordered Quantity: 30.0 Unit: tablet Repeat number: 9 DexCom G7 Senior Oracle Applications Developer DexCom G7 Senior Oracle Applications Developer, See Instructions, # 1 each, Refills 0, [...] 0 Refills, Maintenance, 08/28/24 6:45:00 PM EST, [facility] #[id number], Partial fill upon patient request if the [...] Refills, Maintenance, 09/20/24 2:28:00 PM EST, Solution, [facility] #[id number], increased dose, 183, cm,09/20/24 13:42:00 EST, Height, 110, kg, 08/29/24 14:11:00 EST, Dry Weight Start Date: 09/20/24 Status: Ordered Quantity: 15.0 Unit: mL Repeat number: 12 lisinopril 30 mg oral tablet 1 tablet = 30 mg, By Mouth, Daily, # 90 tablet, 3 Refills, Maintenance, 10/31/24 9:24:00 AM EST, Tablet, [facility] #[id number], Partial fill upon patient request if the [...] Refills, Maintenance, 09/20/24 5:00:00 PM EST, Solution, [facility] #[id number], Partial fill upon patient request if the [...] 4 Refills, Maintenance, 09/20/24 2:29:00 PM EST, [facility] #[id number], increased dose, replacing metformin 750 mg. please [...] 3 Refills, Maintenance, 09/12/23 10:39:00 AM EST, [facility] #[id number], Partial fill upon patient request if the prescription is for a schedule II opioid drug., 182.8, cm, 09/07/23 10:08:00 EST, Height, 90, kg, 02/19/23 12:28:00 EDT, Dry Weight Start Date: 09/12/23 Status: Ordered Quantity: 60.0 Unit: capsule Repeat number: 4 Indication: Gastro-esophageal reflux disease without esophagitis Pen [place], 32 G x 4 mm BD Ultra [...] 10/31/24 8:29:00 AM EST, Tablet, [facility] #[id number], Partial fill upon patient request if the [...] Position: Reference Physician Member Role: PCP Address: [address] [place] [id number] YQ Tele[employer]: Name: Aren Hoskins MD Position: S Outreach Member Role: Lifetime Consulting Physician Address: [address] [facility] [address] [facility] [place] [address]- [place] Telecom: Name: Wen Junior RN Position: S RN Member Role: Primary Care Nurse Name: Estefani Gooden NP Position: S Outreach Member Role: Lifetime Consulting Physician Address: [address] [place] [address]- [place] Telecom: Name: Татьяна Lane LPN Position: S RN Member Role: Primary Care Nurse Care Team Related Persons Name: BREANN ROTH Name: CASPER BENNETT Insurance Providers Guarantor name: ORIN BENNETT Health Plan Information #: 1 Payer: [facility]/ONE CARE Member Number: NA Policy Number: NA Group Number: NA
--- OUTSIDE RECORDS SUMMARY | 2024-11-10 14:20 | XMS_ITS | Clinical Summary ---
Author Organization [facility] Address [address] [facility] [address] [place] [address] Phone Care Team Providers Care Car Repairer Name Role Phone Татьяна Haynes MD Primary [...] day 11/26/19 22 Active Insulin Infusion Pump ([employer] G6 Control-IQ Ins Pump) device Active metFORMIN [...] Office Visit [facility] [address] [address] Paz Dee ARNP Hypertension (Primary Dx); Nephrolithiasis; Idiopathic chronic gout without tophus, not otherwise specified 10/15/2024 Refill [facility] [address] [phone] Sunshine Tenorio MA from Last 3 Months [...] Visit [facility] [address] [address] Paz Dee ARNP [address] [address] Health Maintenance Due Date Last [...] 1.30 mg/dL Phosphorus, Serum 3.6 eGFR Non-Afr Haitian 103 Urine Specific [place] 1.015 Protein, UA Negative mg/dL 10/01/2024 Historical Provider LAB BLOOD ORDERABLES Angelita l Result * (ABNORMAL) Hemoglobin A1c (03/11/2023 2:17 PM EDT) Hemoglobin A1C 6.3(H) (4.0-5.6) % [facility] Comment: MONITORING: In known diabetic patients, hemoglobin A1c targets should be discussed with health care provider. DIAGNOSTIC USE: ??The [place] Diabetes Association (ADA) and the World Health [...] Supplement 1 Testing performed or reported by [facility], a Service of [facility], [address] [place] [address] Terrell Carver MD, School Janitor [facility]# [id number] Blood (Blood, Venous) 03/11/2023 2:17 PM EDT 03/11/2023 2:18 PM EDT Aren Hoskins MD LAB BLOOD ORDERABLES Angelita l Result [facility] from Last 3 Months or Most Recently Relevant to Health Maintenance Insurance [facility] ([id number]) [facility] ([id number]) Care Teams Car Repairer Relationship Specialty Start Date End Date Татьяна Haynes MD [address] [address] PCP - General Internal Medicine 01/25/23
== END 2024-11-10 14:18 | disposition home or self-care (01) ==
LOC: HO.LNP 14:17
PROVIDERS: Visit Provider Physician Assistant Medical
DX: Z13.89 Encounter for screening for other disorder (principal)

== ENCOUNTER → 2024-11-26 23:59 | Outpatient (BNV) | payer OTHER, SELFPAY | PROVIDERS: PCP Internal Medicine; Visit Provider Internal Medicine | DX: R13.10 Dysphagia, unspecified (principal); N40.0 Benign prostatic hyperplasia without lower urinary tract symptoms | CPT/HCPCS: G0180 ==

== ENCOUNTER 2024-12-17 12:39 | Outpatient (AMB) | payer OTHER, SELFPAY ==
--- NOTE | 2024-12-17 13:33 | MHC.AMDMED ---
Intake Intake Visit Reasons: 60 min Powder Compounder Required: No Accompanied by: Self / Same As Patient Allergies empagliflozin [From Jardiance] Allergy (Severe, Verified 11/10/24 13:49) Itching morphine [Morphine] Allergy (Severe, Verified 11/10/24 13:49) HIVES, THROAT CLOSES penicillin G [Penicillin G] Allergy (Severe, Verified 11/10/24 13:49) ANAPHYLAXIS Sulfa (Sulfonamide Antibiotics) [SULFA (SULFONAMIDE ANTIBIOTICS)] Allergy (Severe, Verified 11/10/24 13:49) ANAPHYLAXIS Gadolinium-Containing Contrast Medi [Gadolinium-Containing Agents] Allergy (Intermediate, Verified 11/10/24 13:49) Hives/Rash, dizziness, blue spots adhesive tape Adverse Reaction (Intermediate, Verified 11/10/24 13:49) Rash tramadol Adverse Reaction (Intermediate, Verified 11/10/24 13:49) Gastrointestinal Upset hydromorphone [From Dilaudid] Adverse Reaction (Verified 11/10/24 13:49) Anaphylaxis HPI Comprehensive Diabetes Asmnt Most Recent Diabetes Results: Microalb/Creat Ratio 15.9 ug/mg cr 11/10/20 Cholesterol 103 mg/dL 01/26/22 HDL Cholesterol 35 mg/dL 01/26/22 Triglycerides 97 mg/dL 01/26/22 Creatinine 0.85 mg/dL (0.5-1.4) 02/17/24 Blood Urea Nitrogen 11 mg/dL (9-16) 02/17/24 Sodium 138 mmol/L (135-145) 02/17/24 Potassium 3.9 mmol/L (3.3-5.1) 02/17/24 Chloride 106 mmol/L (96-108) 02/17/24 Carbon Dioxide 24 mmol/L (22-29) 02/17/24 Calcium 9.3 mg/dL (8.4-10.2) 02/17/24 AST 29 U/L (5-37) 05/23/23 ALT 44 U/L (0-40) H 05/23/23 Total Protein 7.4 g/dL (6.5-8.0) 05/23/23 Albumin 4.2 g/dL (3.5-5.0) 05/23/23 [facility] Medical History Difficulty swallowing RSV (respiratory syncytial virus infection) Has daytime drowsiness Allergies History of anesthesia complications Family history of anesthesia complication Type 2 diabetes mellitus Murmur COPD (chronic obstructive pulmonary disease) Lumbar post-laminectomy syndrome Degenerative cervical spinal stenosis Neuropathic pain COVID-19 Chest pain Post herpetic neuralgia Pleuritic chest pain Obesity (BMI 30-39.9) Asthma Pneumonia SONY (obstructive sleep apnea) Ekol-XPVNH-40 syndrome Reactive airway disease On beta mitra at home History of pneumonia Vitamin D deficiency Left nephrolithiasis Dyslipidemia Diabetic polyneuropathy associated with type 2 diabetes mellitus Hypogonadism Failed back syndrome of lumbar spine Arthritis Back pain GERD (gastroesophageal reflux disease) History of fatty infiltration of liver History of ADHD Depression Elevated cholesterol HTN (hypertension) CAD (coronary artery disease) History of 2019 novel coronavirus disease (COVID-19) Cervical radiculopathy Nephrolithiasis Surgical History S/P cardiac catheterization Gynecomastia History of elbow surgery Hx laparoscopic cholecystectomy History of carpal tunnel release Hx of shoulder surgery Hx of arthroscopic knee surgery History of esophagogastroduodenoscopy (EGD) H/O colonoscopy Hx of lumbar discectomy Hx of cardiac catheterization Family History Father Diabetes Hypertension Myocardial infarction Mother Diabetes Stroke Alzheimers disease Pacemaker Brother Diabetes Heart problem Myocardial infarction Sister Myocardial infarction Maternal Grandmother Myocardial infarction Unknown No problems noted. Social History Household Members: Spouse and Family Housing: Apartment Are you a primary skin care consultant to a significant other at home: No Do you presently have visiting nurse or other home services: No Alcohol intake: never Patient Tobacco Use Status: Never used Tobacco e-Cigarette/Vaping Use: Never Used Second Hand Smoke Exposure: No Advance Directives Date on File: 09/28/23 service: No Current occupational status: disabled Cognitive needs: No Hearing needs: No Vision needs: No Assessment & Plan Assessment & Plan (1) Diabetic polyneuropathy associated with type 2 diabetes mellitus: Code(s): E11.42 - Type 2 diabetes mellitus with diabetic polyneuropathy Plan: Learning objectives: The patient was provided with verbal and written education on the following topics as outlined below. The patient met all learning objectives and was able to verbalize understanding and provide teach back of education topics discussed . The patient was provided with the opportunity to ask questions and all questions were answered. Patient Assessment Assess patient education level/literacy/barriers, patient reports he had TIA in 06/22/2024, and then another TIA approximately 1 month ago. Patient questions/concerns, it appears patient last A1c is 8.5% in 07/2024. Although reports he saw PCP and had an A1c in the sevens within the last month. Reviewed PCP note did not see A1c noted from that visit. What is Diabetes? Pathophysiology How the body produces and uses insulin Identify type of DM Risk factors Signs of Diabetes Brief overview of Diabetes Management Monitoring blood sugar Following a meal plan Regular exercise Maintaining a healthy weight Taking medication as needed Members of the care team (PCP, RN, MA, RD, CDE, hearing care practitioner) Blood glucose monitoring When/how often to test Target blood sugar ranges Had been using Dexcom G7 sensors, but when prescriptions were transferred from [facility] to [facility] started giving him Dexcom G6 sensors again. Sent message to PCP to resend prescription for Dexcom G7 sensors to patient's current pharmacy. Patient's average glucose 167 mg/dL for the past 14 days Patient above target 27% At target 73% Below target 0% Introduction to Nutrition Importance of healthy diet in managing DM Diet is personalized to individual preference Review patient?s regular diet/food preferences Who prepares meals/does food shopping/ Dining out?/ Barriers? How diet effects glucose Eating 3 balanced meals a day with small, healthy snacks between meals Review food groups Carbohydrates: What is a carbohydrate/Which food/food groups are considered carbohydrates Effect of carbohydrates on blood glucose Portion sizes Reading food labels Basic carb counting (if applicable per nursing assessment) Plate method Meal planning Recommendations: Follow plate method, consistent carbs and read nutritional labels. Smart Goal assessment: Patient reports he has been using physical activity to help control glucose levels. Up to 50% of the time Educational Materials: The patient was provided with the following written educational materials: Planning Healthy Meals Handout Patient Response to instructions: Comprehension of Instructions: Fair Readiness to make changes: Contemplation How confident they feel about making changes: Positive Portions of this note were created using voice recognition software, please excuse any words or phrases that may have been misinterpreted. Patient Instructions: Incluir actividad diaria regular. ADA recomienda 30 minutos de ejercicio 5 d?as a la semana. P?rdida de peso, hable con el PCP o el cardi?logo antes de comenzar un nuevo plan. Mida el nivel de az?car en la jaden seg?n las indicaciones; Ayuno y comida m?s kika de 2hpp. Observe las tendencias en los resultados. Utilice los resultados y eval?e c?mo los alimentos, la actividad f?tanya y los medicamentos afectan los resultados de az?car en la jaden. Lleve el gluc?metro o CGM a la pr?xima visita. Conocer los medicamentos para la diabetes, lawrence acci?n, los efectos secundarios, la eficacia, la toxicidad, la dosis prescrita, el momento y la frecuencia de administraci?n apropiados, el efecto de las dosis olvidadas y retrasadas y las instrucciones de almacenamiento, viaje y seguridad. T?cnicas de resoluci?n de problemas para el seguimiento de episodios de hipo/hiperglucemia y tratamientos. Reducir los comportamientos de reducci?n de riesgos, dejar de fumar, ex?menes regulares de ojos, pies y dentales. Coding Level of Care Code Est Pt Level 1 (19035) Diagnoses Diabetic polyneuropathy associated with type 2 diabetes mellitus E11.42
--- OUTSIDE RECORDS SUMMARY | 2024-12-17 14:40 | XMS_ITS | Continuity of Care Document ---
Author Organization [facility] Address [address] [facility], 3r d Floor, [address] [place] [address]- Care Team Providers Care Spanner Operator Name Role Phone Santino KRAUSE, Christine Gutierrez Primary Care Physician Encounter [facility] Date(s): 11/01/24 - 12/01/24 [facility] [address] [place] [address], [address] [place] [address]- Encounter Type: Triage Allergies, Adverse Reactions, Alerts [...] 9:24:00 AM EST, Route to Pharmacy Electronically, [facility] #[id number], Partial fill upon patient request if the [...] Refills, Maintenance, 10/02/24 3:05:00 PM EST, CRTablet, [facility] #[id number], Partial fill upon patient request if the prescription is for a schedule II opioid drug., 183, cm, 10/02/24 8:02:00 EST, Height, 108.5, kg, 10/01/24 18:00:00 EST, Dry Weight Start Date: 10/02/24 Status: Ordered Quantity: 30.0 Unit: tablet Repeat number: 9 DexCom G7 Oil Process Stillman DexCom G7 Oil Process [place], See Instructions, # 1 each, Refills 0, [...] 0 Refills, Maintenance, 08/28/24 6:45:00 PM EST, [id number], Partial fill upon patient request if the [...] Refills, Maintenance, 09/20/24 2:28:00 PM EST, Solution, [facility][id number], increased dose, 183, cm,09/20/24 13:42:00 EST, Height, 110, kg, 08/29/24 14:11:00 EST, Dry Weight Start Date: 09/20/24 Status: Ordered Quantity: 15.0 Unit: mL Repeat number: 12 lisinopril 30 mg oral tablet 1 tablet = 30 mg, By Mouth, Daily, # 90 tablet, 3 Refills, Maintenance, 10/31/24 9:24:00 AM EST, Tablet, [facility] #[id number], Partial fill upon patient request if the [...] Refills, Maintenance, 09/20/24 5:00:00 PM EST, Solution, [facility][id number], Partial fill upon patient request if the [...] 4 Refills, Maintenance, 09/20/24 2:29:00 PM EST, [facility] #[id number], increased dose, replacing metformin 750 mg. please [...] 3 Refills, Maintenance, 09/12/23 10:39:00 AM EST, [facility] #[id number], Partial fill upon patient request if the prescription is for a schedule II opioid drug., 182.8, cm, 09/07/23 10:08:00 EST, Height, 90, kg, 02/19/23 12:28:00 EDT, Dry Weight Start Date: 09/12/23 Status: Ordered Quantity: 60.0 Unit: capsule Repeat number: 4 Indication: Gastro-esophageal reflux disease without esophagitis Pen [place], 32 G x 4 mm BD Ultra [...] Date: 04/19/21 Status: Ordered Repeat number: 1 topiramate 25 mg oral tablet See Instructions, Take 1 tablet By Mouth Daily at bedtime for 1 week, then 1 tablet By Mouth twice daily for 1 week, then 1 tablet By Mouth Daily in the morning and 2 at bedtime for 1 week, then 2 tablets By Mouth twice daily, # 120 tablet, 0 Refills, Maintenance, 11/30/24 2:34:00 PM EST, [facility] #[id number], Partial fill upon patient request if the prescription is for a schedule II opioid drug., 183, cm, 11/30/24 13:49:00 EST, Height, 108.5, kg, 10/01/24 18:00:00 EST, Dry Weight Start Date: 11/30/24 Status: Ordered Quantity: 120.0 Unit: tablet Repeat number: 1 Ventolin HFA 108 mcg/inh [...] Refills, Maintenance, 10/31/24 8:29:00 AM EST, Tablet, [facility][id number], Partial fill upon patient request if the [...] Position: Reference Physician Member Role: PCP Address: [address] [place] [address]- AM Telecom: Name: Aren Hoskins MD Position: S Outreach Member Role: Lifetime Consulting Physician Address: [address] [facility] [address] [facility], [place] [address]- [place]R Telecom: Name: Wen Junior RN Position: S RN Member Role: Primary Care Nurse Name: Estefani Gooden NP Position: S Outreach Member Role: Lifetime Consulting Physician Address: [address] [place] [address]- [place] Telecom: Name: Татьяна Lane LPN Position: S RN Member Role: Primary Care Nurse Care Team Related Persons Name: BREANN ROTH Name: CASPER BENNETT Insurance Providers Guarantor name: ORIN BENNETT Health Plan Information #: 1 Payer: [facility] CARE ALLIANCE/[facility] Member Number: NA Policy Number: NA Group Number: NA
--- OUTSIDE RECORDS SUMMARY | 2024-12-17 14:41 | XMS_ITS | Continuity of Care Document ---
Author Organization [facility] Address [address] [facility], 3r d Floor, [address] [place] [address]- Care Team Providers Care Iron Molder Helper Name Role Phone Santino KRAUSE, Christine Gutierrez Primary Care Physician [place] [facility] [place]): 11/09/24 - 12/09/24 [facility] [address] [place] [address], [address] [place] [address]- Encounter Type: Triage Allergies, Adverse Reactions, Alerts [...] 9:24:00 AM EST, Route to Pharmacy Electronically, [facility] #[id number], Partial fill upon patient request if the [...] Refills, Maintenance, 10/02/24 3:05:00 PM EST, CRTablet, [facility] #[id number], Partial fill upon patient request if the prescription is for a schedule II opioid drug., 183, cm, 10/02/24 8:02:00 EST, Height, 108.5, kg, 10/01/24 18:00:00 EST, Dry Weight Start Date: 10/02/24 Status: Ordered Quantity: 30.0 Unit: tablet Repeat number: 9 DexCom G7 Cellars Supervisor DexCom G7 Cellars Supervisor, See Instructions, # 1 each, Refills 0, [...] 6:45:00 PM EST, [facility][id number], Partial fill upon patient request if the prescription is for a schedule II opioid drug., Per instructions from GI., 183, cm, 08/28/24 15:05:00 EST, Height, 93, kg, 05/31/24 10:43:00 EDT, Dry Weight Start Date: 08/28/24 Status: Ordered Quantity: 4000.0 Unit: mL Repeat number: 1 Indication: Encounter for screening for malignant neoplasm of colon Kenny Sollenyar Pen 100 units/mL subcutaneous solution = 26 units, Subcutaneous Injection, Daily at bedtime, rotate injection sites, # 15 mL, 11 Refills, Maintenance, 09/20/24 2:28:00 PM EST, Solution, [facility] #[id number], increased dose, 183, cm,09/20/24 13:42:00 EST, Height, 110, kg, 08/29/24 14:11:00 EST, Dry Weight Start Date: 09/20/24 Status: Ordered Quantity: 15.0 Unit: mL Repeat number: 12 lisinopril 30 mg oral tablet 1 tablet = 30 mg, By Mouth, Daily, # 90 tablet, 3 Refills, Maintenance, 10/31/24 9:24:00 AM EST, Tablet, [facility] #[id number], Partial fill upon patient request if the [...] Refills, Maintenance, 09/20/24 5:00:00 PM EST, Solution, [facility] #[id number], Partial fill upon patient request if the [...] Maintenance, 09/20/24 2:29:00 PM EST, [facility] #[id number], increased dose, replacing metformin 750 mg. please [...] 3 Refills, Maintenance, 09/12/23 10:39:00 AM EST, [facility] #[id number], Partial fill upon patient request if the prescription is for a schedule II opioid drug., 182.8, cm, 09/07/23 10:08:00 EST, Height, 90, kg, 02/19/23 12:28:00 EDT, Dry Weight Start Date: 09/12/23 Status: Ordered Quantity: 60.0 Unit: capsule Repeat number: 4 Indication: Gastro-esophageal reflux disease without esophagitis Pen [place], 32 G x 4 mm BD Ultra [...] 0 Refills, Maintenance, 11/30/24 2:34:00 PM EST, [facility] #[id number], Partial fill upon patient request if the [...] Refills, Maintenance, 10/31/24 8:29:00 AM EST, Tablet, [facility] #[id number], Partial fill upon patient request if the [...] Care Nurse Name: Osvaldo El RN Position: [facility] RN Supv Member Role: Primary Care Nurse Name: Opal Barker RN Position: S RN Member Role: Primary Care Nurse Name: Shahnaz Lema RN Position: S RN Member Role: Primary Care Nurse Name: Christine De MD Position: Reference Physician Member Role: PCP Address: [address] [place] [address]- [place] Telecom: Name: Aren Hoskins MD Position: S Outreach Member Role: Lifetime Consulting Physician Address: [address] [facility] [address] [facility] [place] [address]- [place] Telecom: Name: Wen Junior RN Position: S RN Member Role: Primary Care Nurse Name: Estefani Gooden NP Position: S Outreach Member Role: Lifetime Consulting Physician Address: [address] [place] [address]- [place] Telecom: Name: Татьяна Lane LPN Position: S RN Member Role: Primary Care Nurse Care Team Related Persons Name: BREANN ROTH Name: CASPER BENNETT Insurance Providers Guarantor name: ORIN BENNETT Health Plan Information #: 1 Payer: [facility] CARE ALLIANCE/[facility] Member Number: NA Policy Number: NA Group Number: NA
--- OUTSIDE RECORDS SUMMARY | 2024-12-17 14:41 | XMS_ITS | Continuity of Care Document ---
Author Organization [facility] Address [address] [place] [address]- Care Team Providers Care Foam Rubber Fabricator Name Role Phone Christine De MD Primary Care Phys[id number] - 12[facility]16/24 [facility] [address] [place] [address] Attending Physician: Myriam Morris MD Admitting Physician: Myriam Morris MD Referring Physician: Christine De MD Encounter Type: Pre-OutPatient One Time Allergies, Adverse Reactions, Alerts Substance Criticality Severity Reaction Reaction Severity Status traMADol Active Jardiance Active morphine Active penicillins 1 Active sulfa drugs Active Contrast Dye Active Other Food Allergy 2 Active HYDROmorphone Hydrochloride Active 1Tolerates ceftriaxone 2Red Meats Medications albuterol [...] 9:24:00 AM EST, Route to Pharmacy Electronically, [facility] #[id number], Partial fill upon patient request if the [...] Refills, Maintenance, 10/02/24 3:05:00 PM EST, CRTablet, [facility] #[id number], Partial fill upon patient request if the prescription is for a schedule II opioid drug., 183, cm, 10/02/24 8:02:00 EST, Height, 108.5, kg, 10/01/24 18:00:00 EST, Dry Weight Start Date: 10/02/24 Status: Ordered Quantity: 30.0 Unit: tablet Repeat number: 9 DexCom G7 Rewinder Operator DexCom G7 Rewinder Operator, See Instructions, # 1 each, Refills 0, [...] Date: 06/12/24 Status: Ordered Repeat number: 1 FLUoxetine 20 mg oral capsule 40 mg, 2, capsule, By Mouth, Daily, # 60 capsule, Refills 0, Maintenance, 06/21/17 7:48:08 PM EDT Start Date: 06/21/17 Status: Ordered Quantity: 60.0 Unit: capsule Repeat number: 1 Golytely - oral powder for reconstitution See Instructions, Per instructions from GI., # 4,000 mL, 0 Refills, Maintenance, 08/28/24 6:45:00 PM EST, [facility] #[id number], Partial fill upon patient request if the [...] Refills, Maintenance, 09/20/24 2:28:00 PM EST, Solution, [facility] #[id number], increased dose, 183, cm,09/20/24 13:42:00 EST, Height, 110, kg, 08/29/24 14:11:00 EST, Dry Weight Start Date: 09/20/24 Status: Ordered Quantity: 15.0 Unit: mL Repeat number: 12 lisinopril 30 mg oral tablet 1 tablet = 30 mg, By Mouth, Daily, # 90 tablet, 3 Refills, Maintenance, 10/31/24 9:24:00 AM EST, Tablet, [facility] #[id number], Partial fill upon patient request if the prescription is for a schedule II opioid drug., 183, cm, 10/26/24 13:31:00 EST, Height, 108.5, kg, 10/01/24 18:00:00 EST, Dry Weight Start Date: 10/31/24 Status: Ordered Quantity: 90.0 Unit: tablet Repeat number: 4 lisinopril 40 mg oral tablet 1 tablet = 40 mg, By Mouth, Daily, # 90 tablet, 3 Refills, Maintenance, 12/11/24 1:04:00 PM EDT, Tablet, [facility] #1234, Partial fill upon patient request if the prescription is for a schedule II opioid drug., 183, cm, 12/11/24 12:50:00 EDT, Height, 108.5, kg, 10/01/24 18:00:00 EST, Dry Weight Start Date: 12/11/24 Status: Ordered Quantity: 90.0 Unit: tablet Repeat number: 4 Lyrica 50 mg oral capsule 3 capsules, By Mouth, Daily, 0 Refills, Maintenance, 06/21/17 7:44:46 PM EDT Start Date: 06/21/17 Status: Ordered Repeat number: 1 Lyumjev KwikPen 100 units/mL injectable solution = 8 units, Subcutaneous Injection, 3 times a day with meals, at the start of a meal or within 20 minutes after starting a meal, # 15 mL, 11 Refills, Maintenance, 09/20/24 5:00:00 PM EST, Solution, [facility] #[id number], Partial fill upon patient request if the [...] 4 Refills, Maintenance, 09/20/24 2:29:00 PM EST, [facility] #[id number], increased dose, replacing metformin 750 mg. please [...] 3 Refills, Maintenance, 09/12/23 10:39:00 AM EST, [facility] #[id number], Partial fill upon patient request if the prescription is for a schedule II opioid drug., 182.8, cm, 09/07/23 10:08:00 EST, Height, 90, kg, 02/19/23 12:28:00 EDT, Dry Weight Start Date: 09/12/23 Status: Ordered Quantity: 60.0 Unit: capsule Repeat number: 4 Indication: Gastro-esophageal reflux disease without esophagitis Pen [place], 32 G x 4 mm BD Ultra [...] 0 Refills, Maintenance, 11/30/24 2:34:00 PM EST, [facility][id number], Partial fill upon patient request if the prescription is for a schedule II opioid drug., 183, cm, 11/30/24 13:49:00 EST, Height, 108.5, kg, 10/01/24 18:00:00 EST, Dry Weight Start Date: 11/30/24 Status: Ordered Quantity: 120.0 Unit: tablet Repeat number: 1 Trulicity Pen 0.75 mg/0.5 mL subcutaneous solution 0 Refills, Maintenance, 12/10/24 9:17:00 PM EDT, Partial fill upon patient request if the prescription is for a schedule II opioid drug. 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 Confirmed Active COVID-19 1 Confirmed 05/19/22 Active COVID-19 2 Confirmed 10/02/24 Active Diabetes mellitus Confirmed Active GERD (gastroesophageal reflux disease) Confirmed Active History of TIA (transient ischemic attack) Confirmed Active Hyperlipidemia Confirmed Active Hypertension Confirmed Active Kidney stone Confirmed 12/22/21 Active Obese class I Confirmed Active SONY on CPAP Confirmed Active Polyneuropathy due to type 2 diabetes mellitus Confirmed Active PTSD (post-traumatic stress disorder) Confirmed [...] Care Nurse Name: Capri Branch RN Position: [facility] RN Member Role: Primary Care Nurse Name: Osvaldo El RN Position: [facility] RN Supv Member Role: Primary Care Nurse Name: Opal Barker RN Position: [facility] RN Member Role: Primary Care Nurse Name: Torey PUENTES, Shahnaz Position: [facility] RN Member Role: Primary Care Nurse Name: Santino KRAUSE, Christine Gutiererz Position: Reference Physician Member Role: PCP Address: [address] [place] [address]- [place] Telecom: Name: Aren Hoskins MD Position: S Outreach Member Role: Lifetime Consulting Physician Address: [address] [facility] [place] [address]- [place] Telecom: Name: Wen Junior RN Position: [facility] RN Member Role: Primary Care Nurse Name: Estefani Gooden NP Position: [facility] Outreach Member Role: Lifetime Consulting Physician Address: [address] [place] [address]- [place] Telecom: Name: Татьяна Lane LPN Position: [facility] RN Member Role: Primary Care Nurse Care Team Related Persons Name: BREANN ROTH Name: CASPER BENNETT Insurance Providers Guarantor name: ORIN BENNETT Health Plan Information #: 1 Payer: [facility] C[facility] ALLI[facility] Member Number: [id number] Policy Number: NA Group Number: [employer] Health Plan Information #: 2 Payer: [employer]URANCE Member Number: NA Policy Number: NA Group Number: NA
--- OUTSIDE RECORDS SUMMARY | 2024-12-17 14:41 | XMS_ITS | Clinical Summary ---
Author Organization [facility] Address [address] [place] [address] Care Team Providers Care Graphics Edit Technician Name Role Phone Unavailable Primary Care Provider [...] Description 12/28/2024 9:40 AM EDT Office Visit [facility] [address] [place] [phone] Paz Gay [address] [place] [address] Health Maintenance Due Date Last Done Comments [...] 2016 Dental Perio Charting 02/17/2024 02/14/2023, 022 [id number] ( season) 2024 Imm-Influenza (#1) 2024 07/10/2020, [...] Most Recently Relevant to Health Maintenance Insurance [facility]
--- OUTSIDE RECORDS SUMMARY | 2024-12-17 14:41 | XMS_ITS | Clinical Summary ---
Author Organization [facility] Address [address] [facility] [address] [place] [address] Phone Care Team Providers Care Media Intern Name Role Phone Татьяна Haynes MD Primary [...] THREE TIMES DAILY NEEDED FOR FOR PAIN 2 Active Albuterol Sulfate 108 (90 Base) MCG/ACT aerosol powder Inhale 0 Active metoprolol tartrate (LOPRESSOR) 50 MG tablet Take 50 mg by mouth in the morning and 50 mg in the evening. 2 Active omeprazole (PriLOSEC) [address] capsule Take 20 mg by mouth in the morning and 20 mg in the evening. 2 Active rosuvastatin (CRESTOR) 40 MG tablet Take 40 mg by mouth 1 (one) time each day 2 Active Insulin Infusion Pump (SecureWave G6 Control-IQ Ins Pump) device Active metFORMIN XR (GLUCOPHAGE-XR) 750 MG 24 hr tablet Take 2 tablets (1,500 mg total) by mouth 1 (one) time each day 60 tablet 5 3 Active pregabalin (LYRICA) 150 MG capsule Take 1 capsule (150 mg total) by mouth in the morning and 1 capsule (150 mg total) in the evening. 60 capsule 5 3 Active lisinopril 10 MG tablet Take 1 tablet (10 mg total) by mouth 1 (one) time each day 30 tablet 5 3 Active Additional Information Patient taking differently: 20 mgOral2 times daily, Reported on 10/17/2024 allopurinol (ZYLOPRIM) 300 MG tablet Take 1 tablet (300 mg total) by mouth 1 (one) time each day 30 tablet 5 Active Additional Information Patient taking differently:300 mg Oral2 times daily, Reported on 10/17/2024 citric acid-potassium citrate (POLYCITRA) 1100-334 MG/5ML solution Take 15 mL by mouth in the morning and 15 mL in the evening. Active insulin glargine (LANTUS) 100 UNIT/ML injection Inject under the skin every night Active Active Problems Problem Noted Date Diagnosed Date [...] Office Visit [facility] [address] [phone] Paz Dee ARNP Hypertension (Primary Dx); Nephrolithiasis; Idiopathic chronic gout without tophus, not otherwise specified 10/15/2024 Refill [facility] [address] [phone] Sunshine Tenorio [place] from Last 3 Months Immunizations Name Administration Dates Next Due Influenza (IM) Preservative Free 07/10/2020,1010/2018 Family History Medical History Relation Comments Diabetes [...] Visit [facility] [address] [phone] Paz Dee ARNP [address] [phone] Health Maintenance Due Date Last Done Comments [...] Procedure Name Priority Date/Time Associated Diagnosis Comments BASIC METABOLIC PANEL Routine 11/30/2024 2:56 PM EST Hypertension URIC ACID Routine 11/30/2024 2:55 PM EST Hypertension Idiopathic chronic gout without tophus, not otherwise specified PROTEIN / CREATININE RATIO, URINE Routine 11/30/2024 2:55 PM EST Hypertension Idiopathic chronic gout without tophus, not otherwise specified URINE ALBUMIN / CREATININE RATIO Routine 11/30/2024 2:55 PM EST Hypertension Idiopathic chronic gout without tophus, not otherwise specified EXT RESULT ENTRY Routine 10/01/2024 HEMOGLOBIN A1C Routine 03/11/2023 2:17 PM EDT Nephrolithiasis Hypertension 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) from Last 3 Months or Most Recently Relevant to Health Maintenance Results * Basic metabolic panel (11/30/2024 2:56 PM EST) Sodium 143 134 - 144 mmol/L [facility] Potassium 4.5 3.5 - 5.2 mmol/L [facility] Chloride 106 96 - 106 mmol/L [facility] Glucose 97 70 - 99 mg/dL [facility] BUN 14 6 - 24 mg/dL [facility] Creatinine 0.80 0.76 - 1.27 mg/dL [facility] eGFR CKD-EPI CR 2020 103 >59 mL/min/1.7 3 [facility] BUN/Creatinine Ratio 18 9 - 20 [facility] Bicarbonate (CO2) 23 20 - 29 mmol/L [facility] Calcium 9.8 8.7 - 10.2 mg/dL [facility] Blood (Blood, Venous) 11/30/2024 2:56 PM EST 11/30/2024 [facility] LAB BLOOD ORDERABLES Final Result Performing Organization Address City/[facility]/ZIP Co de Phone Number [facility] [address] [place] [address] * (ABNORMAL) Urine Protein / creatinine ratio (11/30/2024 2:55 PM EST) Creatinine, Ur 259.4 Not Estab. mg/dL [facility] Protein, Ur 104.8 Not Estab. mg/dL [facility] Urine Protein/Creati nine Ratio 404(H) 0 - 200 mg/g creat [facility] Urine (Urine, Clean Catch) 11/30/2024 2:55 PM EST 11/30/2024 [facility] LAB URINE ORDERABLES Final Result [facility] [address] [place] [address] * Urine Albumin / Creatinine Ratio (11/30/2024 2:55 PM EST) Albumin, Urine 28.7 Not Estab. ug/mL [facility] Albumin/Creatin ine Ratio 11 0 - 29 mg/g creat [facility] Comment: ? Normal: ?0 - ??29 ? Moderately increased: 30 - 300 ? Severely increased: ? >300 Urine (Urine, Clean Catch) 11/30/2024 2:55 PM EST [facility] URINE ORDERABLES Final Result Performing Organization Address City/[facility]/ZIP Co de Phone Number [facility] [address] [place] [address] * (ABNORMAL) Uric acid (11/30/2024 2:55 PM EST) Uric Acid 2.7(L) 3.8 - 8.4 mg/dL [facility] Comment:Therapeutic target f or gout patients: <6.0 Blood (Blood, Venous) 11/30/2024 2:55 PM EST 11/30/2024 [facility] Dee [facility] LAB BLOOD ORDERABLES Final Result Performing Organization Address City/[facility]/ZIP Co de Phone Number [facility] [address] [place] [address] * EXT RESULT ENTRY (10/01/2024) Hemoglobin 13.5 13.5 - 17.5 Hematocrit 41.7 41.0 - 53.0 Platelets 237 150 - 399 10*3/UL Sodium 140 137 - 147 Potassium 4.0 3.4 - 5.5 Carbon Dioxide 25 mmol/L Creatinine 0.79 0.60 - 1.30 mg/dL Phosphorus, Serum 3.6 eGFR Non-Afr Serbian 103 Urine Specific [place] 1.015 Protein, UA Negative mg/dL 10/01/2024 Historical Provider LAB BLOOD ORDERABLES Angelita l Result * (ABNORMAL) Hemoglobin A1c (03/11/2023 2:17 PM EDT) Hemoglobin A1C 6.3(H) (4.0-5.6) % [facility] Comment: MONITORING: In known diabetic patients, hemoglobin A1c targets should be discussed with health care provider. DIAGNOSTIC USE: ??The [place] Diabetes Association (ADA) and the World Health [...] Supplement 1 Testing performed or reported by [facility], a Service of [facility], [address] [place] [address] Terrell Carver MD, Drywall Applicator [facility]# [id number] Blood (Blood, Venous) 03/11/2023 2:17 PM EDT 03/11/2023 2:18 PM EDT Aren Hoskins MD LAB BLOOD ORDERABLES Angelita l Result [facility] from Last 3 Months or Most Recently Relevant to Health Maintenance Insurance [facility] ([id number]) [facility] ([id number]) Care Teams Media Intern Relationship Specialty Start Date End Date Татьяна Haynes MD [address] [place] [id number] PCP - General Internal Medicine 01/25/23
--- OUTSIDE RECORDS SUMMARY | 2024-12-17 14:41 | XMS_ITS | Patient Health Record ---
Author Organization [facility] Address [address] [place] [address] Care Team Providers Care Steam And Power Supervisor Name Role Phone Darek Lani Primary Care Provider Unavailabl e Black, Margarita Unavailable [phone] Allergies Allergen (clinical drug ingredient) Drug/Non Drug Allergy documented on EMR Reaction Allergy Type Onset Date Status amoxicillin Amoxicillin hives,swelling throat Drug Allergy Active aspirin Aspirin Unknown Drug Allergy Active Bactrim swollen eyes Drug Allergy Acti ve morphine Morphine Sulfate hives, trouble breathing, fainting [...] tive Ranitidine 1 tab Oral Active Umeclidinium [place] 62.5 MCG/INH 1 puff Inhalation Once a [...] primary osteoarthritis of the ankle and/or foot (854284903) Primary osteoarthritis, right ankle and foot (M19.071) Active confirmed Problem Polyneuropathy due to type 2 diabetes mellitus (667116341) Type 2 diabetes mellitus with diabetic polyneuropathy (E11.42) Active confirmed Problem [id number] 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 Plan Of Treatment Pending Test Test Name Order Date [id number] NAIL, 6 OR MORE 07/10/2020 63314-ITZZKPM NAIL, 6 OR MORE 01/08/2021 41791-CUWDHPR NAIL, 6 OR MORE 04/13/2021 53091-IFKQOIH NAIL, 6 OR MORE 09/07/2021 40057-WJDJQLK NAIL, 6 OR MORE 12/17/2021 25028-KHKDBDM NAIL, 6 OR MORE 03/22/2022 17981-VALLDPR NAIL, 6 OR MORE 06/24/2022 92082-LJJTUGB NAIL, 6 OR MORE 09/23/2022 [id number]-HKPFXWR NAIL, 6 OR MORE 12/30/2022 21689-Uclu Destruction, 1-14 12/30/2022 21895-Elps Destruction, 1-14 09/23/2022 02793, J0702- INJECT or DRAIN, JOINT/BUR SA 12/17/2021 87161-ABTU SKIN LESIONS, 2 TO 4 06/24/20 76134-EHWG SKIN LESIONS, 2 TO 4 12/31/19 21063-UNTD SKIN LESIONS, 2 TO 4 09/23/20 58061, [id number]-GTQLW/INJECT, JOINT/BURSA 0 11/12/2019 92531, X6923-VHHSH/INJECT, JOINT/BURSA 0 03/22/2022 X ray : Ankle, right 3V 12/17/2021 Insurance Providers Payer Name Payer Address Payer Phone Subscriber Number Group Number Insured Name Patient Relationship to Insured Coverage Start Date Coverage End Date [facility] [employer] Claims [address] [place] [address] [phone] [id number] Mohit Segovia Self - patient is the [...] 2002 Arthroscopic shoulder Sx 2018 Right elbow 2012 cardiac catheterization left shoulder 2019 Disk 2005 gall bladder 11/07/2019 Hospitalization History Reason Date(Month/Year) [facility] 06/24
== END 2024-12-17 13:36 | disposition home or self-care (01) ==
LOC: HO.ENCR 12:39
PROVIDERS: PCP Internal Medicine; Visit Provider Registered Nurse Diabetes Educator
DX: E11.42 Type 2 diabetes mellitus with diabetic polyneuropathy (principal)

== ENCOUNTER → 2024-12-17 12:39 | Outpatient (BNVA) | payer OTHER, SELFPAY | PROVIDERS: PCP Internal Medicine; Visit Provider Registered Nurse Diabetes Educator | DX: E11.42 Type 2 diabetes mellitus with diabetic polyneuropathy (principal) | CPT/HCPCS: 99211 ==

== ENCOUNTER → 2024-12-20 13:01 | Outpatient (BNVA) | payer OTHER, SELFPAY | PROVIDERS: PCP Internal Medicine; Visit Provider Dietitian, Registered | DX: E11.65 Type 2 diabetes mellitus with hyperglycemia (principal); Z71.3 Dietary counseling and surveillance; Z79.4 Long term (current) use of insulin | CPT/HCPCS: 97803 ==

== ENCOUNTER → 2024-12-20 13:01 | Outpatient (AMB) | payer OTHER, SELFPAY ==
--- NOTE | 2024-12-20 13:25 | A.OFFVIS_ITS ---
VS Expanded 12/20/24 13:28 01/01/25 21:16 Height 6 ft 6 ft Weight 241 lb 6.499 oz 241 lb BMI 32.7 32.7 Intake Visit Reasons: T2DM Allergies empagliflozin [From Jardiance] Allergy (Severe, Verified 11/10/24 13:49) Itching morphine [Morphine] Allergy (Severe, Verified 11/10/24 13:49) HIVES, THROAT CLOSES penicillin G [Penicillin G] Allergy (Severe, Verified 11/10/24 13:49) ANAPHYLAXIS Sulfa (Sulfonamide Antibiotics) [SULFA (SULFONAMIDE ANTIBIOTICS)] Allergy (Severe, Verified 11/10/24 13:49) ANAPHYLAXIS Gadolinium-Containing Contrast Medi [Gadolinium-Containing Agents] Allergy (Intermediate, Verified 11/10/24 13:49) Hives/Rash, dizziness, blue spots adhesive tape Adverse Reaction (Intermediate, Verified 11/10/24 13:49) Rash tramadol Adverse Reaction (Intermediate, Verified 11/10/24 13:49) Gastrointestinal Upset hydromorphone [From Dilaudid] Adverse Reaction (Verified 11/10/24 13:49) Anaphylaxis Nutrition Presentation Details: Pt presents for MNT for T2DM food frequency fruits: 0-1/d yogurt: 0/1 vegetables: 3-4 x/wk nuts: not including fish :not including starches > 30 physical activity : sedentary fluids: water, juice, soda fried foods 2x/wk BS Monitoring Most Recent Diabetes Results: No Data to Display EUC-Ypngdwq-Gb.Jeor Equation Height: 6 ft Weight: 241 lb Resting Metabolic Rate: 1954.70 Calculated Activity Level: Sedentary Calories Needed to Maintain Weight: 2345.64 Diagnosis Nutrition problem #1: altered nutrition labs and excessive energy intake As related to (etiology) #1: diagnosis As evidenced by (sign/symptom) #1: abnormal lab values and high BMI [facility] Medical History Difficulty swallowing RSV (respiratory syncytial virus infection) Has daytime drowsiness Allergies History of anesthesia complications Family history of anesthesia complication Type 2 diabetes mellitus Murmur COPD (chronic obstructive pulmonary disease) Lumbar post-laminectomy syndrome Degenerative cervical spinal stenosis Neuropathic pain COVID-19 Chest pain Post herpetic neuralgia Pleuritic chest pain Obesity (BMI 30-39.9) Asthma Pneumonia SONY (obstructive sleep apnea) Zfor-DHTUP-12 syndrome Reactive airway disease On beta mitra at home History of pneumonia Vitamin D deficiency Left nephrolithiasis Dyslipidemia Diabetic polyneuropathy associated with type 2 diabetes mellitus Hypogonadism Failed back syndrome of lumbar spine Arthritis Back pain GERD (gastroesophageal reflux disease) History of fatty infiltration of liver History of ADHD Depression Elevated cholesterol HTN (hypertension) CAD (coronary artery disease) History of 2019 novel coronavirus disease (COVID-19) Cervical radiculopathy Nephrolithiasis Surgical History S/P cardiac catheterization Gynecomastia History of elbow surgery Hx laparoscopic cholecystectomy History of carpal tunnel release Hx of shoulder surgery Hx of arthroscopic knee surgery History of esophagogastroduodenoscopy (EGD) H/O colonoscopy Hx of lumbar discectomy Hx of cardiac catheterization Family History Father Diabetes Hypertension Myocardial infarction Mother Diabetes Stroke Alzheimers disease Pacemaker Brother Diabetes Heart problem Myocardial infarction Sister Myocardial infarction Maternal Grandmother Myocardial infarction Unknown No problems noted. Social History Household Members: Spouse and Family Housing: Apartment Are you a primary health care specialist to a significant other at home: No Do you presently have visiting nurse or other home services: No Alcohol intake: never Patient Tobacco Use Status: Never used Tobacco e-Cigarette/Vaping Use: Never Used Second Hand Smoke Exposure: No Advance Directives Date on File: 09/28/23 service: No Current occupational status: disabled Cognitive needs: No Hearing needs: No Vision needs: No Assessment & Plan Assessment & Plan (1) Type 2 diabetes mellitus with hyperglycemia: Code(s): E11.65 - Type 2 diabetes mellitus with hyperglycemia Category: Medical Qualifiers: Diabetes mellitus nursing home insulin use: with buttermaker helper use Qualified Code(s): E11.65 - Type 2 diabetes mellitus with hyperglycemia; Z79.4 - MCC (current) use of insulin Plan: Wt: 109.5 Kg ( 12/25 ) Est kcal needs as per MSJ: 2300 (40% carb, 30% protein/fat) Est fluid needs as per 25-30 ml/d: 3300 Est prot per day as per 1 g/kg bw: 110 Recommend fiber intake : 8-10 g per day and gradually increase to 25-28 g per day for women and 35-38 g for men or as tolerated Recommend sodium intake per day : less than 1500 mg less than 2000 mg Educated patient on: ( R = reviewed V = verbalizes understanding N/R = needs review N/A = not applicable * Food sources of carbohydrate, adequate serving sizes and its role in various health conditions: R V N/R * Differences between complex carbohydrates a simple carbohydrates, role of fiber in diet: R V N/R * Lean protein sources of foods: R V NR * Differences between types of fats and role in diet (mono on saturated fat fatty acids, saturated fatty acids, trans fats): R * Food sources of sodium in salt and healthy modifications for heart health in kidney health: R * Vitamins and minerals: R V N/R * Healthy plate method concept: R * Physical activity: Benefits a precaution: R V N/R * Hypoglycemia protocol (rule of 15): R V N/R * Dietary prevention of Hyperglycemia: R V Patient Instructions: Choose low fat cooking methods and reduce pre fried /highly processed foods Choose fruit/nut/yogurt as snack see meal ideas consisting of 2300 calories Coding Level of Care Code Nutr Indiv Subseq (40767) Diagnoses Type 2 diabetes mellitus with hyperglycemia, with long-term current use of insulin E11.65; Z79.4 Diabetes mellitus nursing home insulin use: with buttermaker helper use Time Spent (min) 30
[2024-12-20 13:28] VITALS: BMI 32.7
[2025-01-01 21:16] VITALS: BMI 32.7
== END ==
LOC: HO.ENCR 13:02
PROVIDERS: PCP Internal Medicine; Visit Provider Dietitian, Registered
DX: E11.65 Type 2 diabetes mellitus with hyperglycemia (principal); Z79.4 Long term (current) use of insulin

== ENCOUNTER 2025-01-14 10:51 | Outpatient (AMB) | payer OTHER, SELFPAY ==
[2025-01-14 11:11] VITALS: BP 126/68; PULSE 81; O2SAT 99; BMI 32.3
--- NOTE | 2025-01-14 11:11 | MHC.OFFVIS ---
Vital Signs 01/14/25 11:11 Height 6 ft Weight 238 lb 1.588 oz BMI 32.3 BP 126/68 Blood Pressure Location Rt brachial Position Sitting Pulse 81 Pulse Source Pulse Oximeter Pulse Oximetry (%) 99 Oxygen Delivery Method Room Air Intake Visit Reasons: COPD Allergies empagliflozin [From Jardiance] Allergy (Severe, Verified 01/14/25 11:15) Itching morphine [Morphine] Allergy (Severe, Verified 01/14/25 11:15) HIVES, THROAT CLOSES penicillin G [Penicillin G] Allergy (Severe, Verified 01/14/25 11:15) ANAPHYLAXIS Sulfa (Sulfonamide Antibiotics) [SULFA (SULFONAMIDE ANTIBIOTICS)] Allergy (Severe, Verified 01/14/25 11:15) ANAPHYLAXIS Gadolinium-Containing Contrast Medi [Gadolinium-Containing Agents] Allergy (Intermediate, Verified 01/14/25 11:15) Hives/Rash, dizziness, blue spots adhesive tape Adverse Reaction (Intermediate, Verified 01/14/25 11:15) Rash tramadol Adverse Reaction (Intermediate, Verified 01/14/25 11:15) Gastrointestinal Upset hydromorphone [From Dilaudid] Adverse Reaction (Verified 01/14/25 11:15) Anaphylaxis HPI Comments Details: The patient is a 59-year-old gentleman with a history of obstructive sleep apnea who apparently developed COVID-19 little bit more than a year ago requiring ICU level of care. Subsequently after that his breathing has not been the same. He has had episodes of shortness of breath and has had to go to the ER multiple times because of worsening shortness of breath. He was provided with respiratory therapy including short-acting beta agonist. In addition to that he has been provided medications like prednisone. Subsequent please the patient was noted to have a recurrent pneumonia and a chest x-ray and treated with antibiotics. Does back in beginning of April. He did have a repeat chest x-ray that demonstrated resolution of the right-sided pneumonia. I did review all his imaging studies from the [facility] system. Initially when he was admitted with the COVID 19 he did not have a CT scan but did demonstrate that he had bilateral hazy opacities and decreased lung Expansion. Subsequently after that she did have the x-ray demonstrating the developing pneumonia in the right hemithorax. Still though he has never had a CT scan in view of his ongoing respiratory symptoms something that we will address the pending a how he response to this therapy in the meantime she has been struggling with CPAP. He had been on oxygen while he was in the hospital. . The CPAP was affecting beneficial before but does not appear to be helpful any longer. He is having some daytime drowsiness is within up tired. Machine appears to be broken as well. Therefore, he had a sleep study done because of his elevated [place] score of 14/24. The sleep study again demonstrates severe sleep apnea with an AHI greater than 40 significant hypoxia. Based on that will having undergo a CPAP BiPAP titration that the patient may need oxygen or may need a different type of PAP therapy. This is something we can arrange now in regards to his respiratory therapy the patient does have significant exhalation wheezing and coughing consistent likely a component of asthma and reactive airway disease that may have of all after developing a viral pneumonitis. Therefore will optimize respiratory therapy at this time. also to note the patient has not been vaccinated for COVID-19 because of concern of allergies that he has. I encouraged him to get vaccine as well as possible. But 1st I will check to see if he still has antibodies present. 06/20/2023 the patient is here for hospital follow-up visit. He has had a very eventful summer. Continues to have significant left-sided chest discomfort which appears to be in a dermatomal distribution. The patient does have significant spinal stenosis. He was referred to pain management. The patient opted on not having any interventions. One recommendation was to have an MRI of the spine to further address his underlying pain and spinal stenosis history as well as disc disease. He continues to require pain management. We did review his CT scan of the abdomen that he had a [facility] back in March 2023. It appears to show little bit of the left lung base without any acute disease although minimal. Appears to have a small fluid collection on the right. This appears to be stable for the last few years. His last CT scan of the chest here at [place] was back in 2020 demonstrating no significant DU except for the again that right lower lobe fluid pleural base density. The patient will continue with that became patch and then also consider some Tylenol with codeine to provide some pain relief. In the meantime due to the significant history of spinal stenosis will go ahead and request an MRI to better address the issue and help him with his ongoing pain that he has had for years. Hears already perform physical therapy he has already taken in multiple medications without any significant relief. 08/29/2023 the patient is here for a pulmonary follow-up visit. He is still having issues with the back pain. Seems to be getting worse in addition to that radiates to the front of the chest. Moderate severity. Also been having little bit more shortness of breath has been using his Dulera and his rescue inhaler more often. We had scheduled for an MRI of the back but apparently he is allergic to contrast and therefore I referred him to Pain Management in order for them to evaluate the area. He has had had surgery in the past they may have to see neurosurgery or spine surgery for further management. Still should be evaluated by Pain Management 1st to see if he is a good candidate for any nonsurgical approaches. Patient has been using CPAP. He states that he has been bleeding from the nose anything noticing some bloody secretions within the tubing and the CPAP machine. The patient will try water-based lubricant or saline gel and he will try to increase the humidity of the CPAP machine. If he has any difficulties he will call the office. I will also call the [employer] to see if I can get access to adjust the machine from that website. In view of his worsening respiratory symptoms will go ahead and switch him from Dulera to breztri with the hope that he gets better bronchodilation affect. He does have surgery scheduled for the beginning of October for his rotator cuff injury. 12/09/2023 the patient is here for pulmonary follow-up visit. Overall he has been doing fairly well from a respiratory status. The family did get COVID again but he was able to isolate himself and he did not end up getting sick which is reassuring. The patient knows that if he does get COVID he can always call the office we can get him antiviral medicine. In the meantime he continues uses CPAP at nighttime with good effect. He tries to use it more than 4 hours a night. The patient also has been still complaining of the back pain and neck pain in the reticular pain primarily affecting the left intercostal spaces. He did see pain management and they did recommend some interventions including a stimulator. He is going to contemplate those options and let the doctor no how he like to proceed. From a respiratory status he is tolerating the new inhaler. Appears to be working well for him. He has not required his rescue inhaler. 02/17/2024 the patient is here for a pulmonary follow-up visit. Overall he is doing fair. He is now complaining of right-sided chest discomfort. Pleuritic nature. Worse when coughing. He has been waking up coughing and some chest tightness at nighttime. He is having to use his rescue inhaler which she has been helpful. He does continue to use his respiratory medicine with good effect. He did have pulmonary function studies which I personally reviewed. He has mild restriction. Otherwise good. The patient has been using the CPAP. The CPAP therapy continues to be affecting beneficial. He does use it for more than 4 hours a night. He is still dealing with his back pain in his chest discomfort secondary to the radiculopathy. He has consider a pain stimulator. He has not sure as it yet. He is also dealing with shoulder issues. Does have a congested cough. Likely has a component of bronchitis. He has low IgM level suggesting some degree of immunodeficiency. Will try him on azithromycin 3 times a week. The patient will also undergo a chest x-ray and blood work. If he has any worsening symptoms he will call for an earlier assessment. 04/13/2024 the patient is here for pulmonary follow-up visit. Overall the patient is doing fairly okay. He is still complaining of daytime drowsiness. His [place] score is elevated 1124. This has been after effective treatment with sleep apnea. We did download the machine. He does use it more than 4 hours and his adherence is at 97%. The patient's AHI is down to 1.3 in the therapy has been affecting beneficial although he continues to have daytime drowsiness. Therefore started on small dose of Nuvigil may be effective for him. In addition to that he did complete the antibiotics for the chronic bronchitis and seems to be doing better and will stop the medicine at this time. He will continue with his current respiratory regimen though. He is working closely with pain management and also with GI. A lot of the GI symptoms have improved after stopping the Trulicity injections. Therefore the patient was start individual and will let us know we have to increase the dose. This is a very small dose and is at some trial to make sure that he tolerates especially since he is very sensitive to medications. He does tolerated we can increase slowly to the therapeutic range. 07/20/2024 the patient is here for a pulmonary follow-up visit. Overall he still has the same complaints. Still significant drowsiness. He has been using the CPAP in the CPAP therapy has been very affecting beneficial. His AHI is 1 below. His pressure settings are accurate and no further adjustments need to be made. The mask fitting is good and he does not have any significant air leakage. He has been under individuals small dose of 50 mg. at this point will incrsease to 100 mg. he understands that this is still a low dose but will slowly go enough to more therapeutic level. Recently he was evaluated at [facility] after developing stroke like symptoms. He was found to have critically elevated blood sugars. The patient was referred to endocrinology at [facility] and has an appointment next week. In the meantime he is going to continue with the current respiratory therapy. Will avoid prednisone because of his significant uncontrolled diabetes. 01/14/2025 the patient is here for a sick visit. Apparently he has been using CPAP every night and CPAP therapy has been very affecting beneficial. His AHI has been good. Although this has been some staying on the water did. He did call the DME to see what was all about. But he could not get a clear answer. He did bring the CPAP in. Season residual ricketts on the bottom of the water chamber which could be some mildew or mold for bacterial growth. For that reason is not safe to continue using the same water this. I did have a new 1 to provide him. We did talk about ways to keep it clean and dry to minimize on the stagnant water causing it to develop any colonization of any organisms. Meantime is respiratory symptoms are stable he continues on the medication as prescribed. He does complaint of abdominal pain distention. We did look at an ultrasound back in July which appeared to be okay except for fatty liver and he had a CT scan back in 2020 which we also reviewed demonstrating some postoperative changes after his cholecystectomy. But these are all old studies. If he continues to have discomfort he will talk to his primary care doctor about ordering evaluation for testing. [facility] Medical History Difficulty swallowing RSV (respiratory syncytial virus infection) Has daytime drowsiness Allergies History of anesthesia complications Family history of anesthesia complication Type 2 diabetes mellitus Murmur COPD (chronic obstructive pulmonary disease) Lumbar post-laminectomy syndrome Degenerative cervical spinal stenosis Neuropathic pain COVID-19 Chest pain Post herpetic neuralgia Pleuritic chest pain Obesity (BMI 30-39.9) Asthma Pneumonia SONY (obstructive sleep apnea) [id number] syndrome Reactive airway disease On beta mitra at home History of pneumonia Vitamin D deficiency Left nephrolithiasis Dyslipidemia Diabetic polyneuropathy associated with type 2 diabetes mellitus Hypogonadism Failed back syndrome of lumbar spine Arthritis Back pain GERD (gastroesophageal reflux disease) History of fatty infiltration of liver History of ADHD Depression Elevated cholesterol HTN (hypertension) CAD (coronary artery disease) History of 2019 novel coronavirus disease (COVID-19) Cervical radiculopathy Nephrolithiasis Surgical History S/P cardiac catheterization Gynecomastia History of elbow surgery Hx laparoscopic cholecystectomy History of carpal tunnel release Hx of shoulder surgery Hx of arthroscopic knee surgery History of esophagogastroduodenoscopy (EGD) H/O colonoscopy Hx of lumbar discectomy Hx of cardiac catheterization Family History Father Diabetes Hypertension Myocardial infarction Mother Diabetes Stroke Alzheimers disease Pacemaker Brother Diabetes Heart problem Myocardial infarction Sister Myocardial infarction Maternal Grandmother Myocardial infarction Unknown No problems noted. Social History Household Members: Spouse and Family Housing: Apartment Are you a primary healthcare technician to a significant other at home: No Do you presently have visiting nurse or other home services: No Alcohol intake: never Patient Tobacco Use Status: Never used Tobacco e-Cigarette/Vaping Use: Never Used Second Hand Smoke Exposure: No Advance Directives Date on File: 09/28/23 service: No Current occupational status: disabled Cognitive needs: No Hearing needs: No Vision needs: No Review of Systems Const Denies fatigue, Denies weight gain and Reports weight loss Eyes Denies blurry vision ENT Denies epistaxis and Denies sore throat Card Reports chest pain, Denies palpitations and Denies dyspnea Resp Reports chest congestion, Reports cough, Reports pain on inspiration and Denies dyspnea GI Denies constipation and Denies diarrhea Denies dysuria and Denies urinary frequency Musc Reports back pain, Reports arthralgias, Reports joint swelling, Reports limited range of motion, Denies muscle cramps, Denies muscle weakness, Reports numbness and Reports tingling Neuro Denies burning sensations, Reports numbness, Reports tingling and Denies paresthesias Psych Denies depression Endo Denies fatigue, Denies polydipsia, Denies polyuria and Denies palpitations Tejas/Lymph Denies easy bruising Physical Exam Vital Signs: Last Vital Signs Pulse 81 01/14/25 11:11 BP 126/68 01/14/25 11:11 Pulse Ox 99 01/14/25 11:11 Oxygen Delivery Method Room Air 01/14/25 11:11 BMI result Body Mass Index 32.3 Const General: no acute distress and alert HEENT Head: Yes normocephalic and Yes atraumatic Eyes Sclerae: sclerae normal EOM: EOMs intact bilaterally Neck Neck: Yes no lymphadenopathy, Yes trachea midline and Yes no JVD Thyroid: Thyroid normal Chest Chest palpation & inspection: normal inspection of the chest Resp Effort & Inspection: normal respiratory effort Auscultation: diminished lung sounds Cardio Rate: regular rate Rhythm: regular rhythm Heart sounds: S1 normal heart sound present and S2 normal heart sound present Peripheral pulses: Peripheral pulses 2+ throughout GI Inspection: Yes normal to inspection and No distended Auscultation: normal bowel sounds Skin Other: No acanthosis nigricans or diabetic dermopathy Neuro Sensory Exam: Trunk sensory exam abnormal (tenderness skin palpation superficial pain dermatomal distributibution) Deep tendon reflexes (DTR's): Rt Biceps (C5, C6): 2+, Left biceps reflex intensity grade: 2+, Right patellar reflex intensity grade: 2+ and Left patellar reflex intensity grade: 2+ Extrem Other: Foot inspection: No lesions, ulcers. + oncymychosis General: Yes normal gait, No clubbing, No cyanosis and No edema Psych Affect: normal affect Attitude: cooperative Assessment & Plan Assessment & Plan (1) SONY (obstructive sleep apnea): Code(s): G47.33 - Obstructive sleep apnea (adult) (pediatric) Category: Medical (2) [id number]-21 syndrome: Code(s): B94.8 - Sequelae of other specified infectious and parasitic diseases Category: Medical (3) Asthma: Code(s): J45.909 - Unspecified asthma, uncomplicated Category: Medical Qualifiers: Asthma complication type: uncomplicated Asthma persistence: persistent Asthma severity: moderate Qualified Code(s): J45.40 - Moderate persistent asthma, uncomplicated (4) Has daytime drowsiness: Comment: even after effective APAP therapy with AHI 1.3 Code(s): R40.0 - Somnolence Category: Social Hx Plan continue Breztri BID short-acting beta agonist as needed nebulizer that he can use as needed lidoderm patch to the left sided neuropathy continue APAP therapy, medium F30i mask, provided a new water chamber and directions of caring for it provided stopped Azithromycin MWF Nuvigil F/U 4-6 months Coding Level of Care Code Est Pt Level 4 (95046) Diagnoses SONY (obstructive sleep apnea) G47.33 Gudl-IPHSE-28 syndrome B94.8 Moderate persistent asthma without complication J45.40 Asthma complication type: uncomplicated Asthma persistence: persistent Asthma severity: moderate Has daytime drowsiness R40.0 Time Spent (min) 16
--- OUTSIDE RECORDS SUMMARY | 2025-01-14 12:43 | XMS_ITS | Patient Health Record ---
[facility] Address [address] [place] [address] Care Team Providers Care Resort Manager Name Role Phone Darek Lani Primary Care Provider Unavailabl e Black, Margarita Unavailable [phone] Allergies Allergen (clinical drug ingredient) Drug/Non Drug [...] tive Ranitidine 1 tab Oral Active Umeclidinium [place] 62.5 MCG/INH 1 puff Inhalation Once a [...] primary osteoarthritis of the ankle and/or foot (812425977) Primary osteoarthritis, right ankle and foot (M19.071) Active confirmed Problem Polyneuropathy due to type 2 diabetes mellitus (341405759) Type 2 diabetes mellitus with diabetic polyneuropathy (E11.42) Active confirmed Problem [id number] 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 Plan Of Treatment Pending Test Test Name Order Date [id number] NAIL, 6 OR MORE 07/10/2020 [id number] NAIL, 6 OR MORE 01/08/2021 47053-ETHDLGP NAIL, 6 OR MORE 04/13/2021 [id number] NAIL, 6 OR MORE 09/07/2021 57443-IOOMGUX NAIL, 6 OR MORE 12/17/2021 64102-CDPNPHV NAIL, 6 OR MORE 03/22/2022 08726-UOJAJCS NAIL, 6 OR MORE 06/24/2022 25297-PZYDGRR NAIL, 6 OR MORE 09/23/2022 18873-DDMFXGU NAIL, 6 OR MORE 12/30/2022 51572-Cuvx Destruction, 1-14 12/30/2022 83766-Oazw Destruction, 1-14 09/23/2022 75378, J0702- INJECT or DRAIN, JOINT/BUR SA 12/17/2021 89999-BIHV SKIN LESIONS, 2 TO 4 06/24/20 43764-LIWU SKIN LESIONS, 2 TO 4 12/31/19 52247-ZUNV SKIN LESIONS, 2 TO 4 09/23/20 65551, X7407-PJTHX/INJECT, JOINT/BURSA 0 11/12/2019 09951, D3042-MHKCX/INJECT, JOINT/BURSA 0 03/22/2022 X ray : Ankle, right 3V 12/17/2021 Insurance Providers Payer Name Payer Address Payer Phone Subscriber Number Group Number Insured Name Patient Relationship to Insured Coverage Start Date Coverage End Date [facility] [employer] Claims [address] [place] [id number] [phone] [id number] Mohit Segovia Self - patient is the [...] gall bladder 11/07/2019 Hospitalization History Reason Date(Month/Year) [facility] 06/24
--- OUTSIDE RECORDS SUMMARY | 2025-01-14 12:43 | XMS_ITS | Clinical Summary ---
Author Organization [facility] Address [address] [place] [address] Care Team Providers Care Pharmacy Informatics Manager Name Role Phone Unavailable Primary Care Provider [...] Active Active Problems No known active problems Encounters Date Type Department Care Team Description 12/28/2024 9:40 AM EDT Office Visit [facility] [address] [place] [address] Paz Gay Encounter for dental examination (Primary Dx) from Last 3 Months Social History Tobacco Use Types Packs/Day Years [...] Mass Index - - Plan of Treatment Health Maintenance Due Date Last Done Comments Anxiety Screening 1966 Hepatitis C Screening 1966 Lipid Screening 1966 HIV Screening 1981 Medicare Annual Wellness Visit 1984 Imm-DTaP/Tdap/Td (1 - Tdap) 1985 Imm-Hepatitis B (1 of 3 - 19 + 3-dose series) 1985 CT Colonography 2011 Colonoscopy 2011 Colorectal Cancer Screening 2011 FIT/gFOBT 2011 Fecal DNA 2011 Flexible Sigmoidoscopy 2011 Imm-Zoster, Recombinant (1 of 2) 2016 Dental Perio Charting 02/17/2024 02/14/2023, 022 Fax-TJTWY-64 ( season) 2024 Imm-Influenza (#1) 2024 07/10/2020, 07/03/2019 Alcohol and Drug Screen 10/03/2024 Depression Annual Screen 10/03/2024 Hypertension Screening (#1) 06/27/2025 Tobacco Screening 06/28/2025 06/28/2024 Dental BW 06/30/2025 06/28/2024, 0501/2023, 08/17/2022 Dental Examination 06/30/2025 06/28/2024, 0 02/14/2023, 08/17/2022 Dental Prophy 06/30/2025 06/28/2024, 0501/2023, 08/17/2022 Diabetes Screening 11/30/2027 11/30/2024, 0 03/11/2023, 03/11/2023 Dental FMX/Pano 02/17/2028 02/14/2023 Procedures Procedure Name Priority Date/Time Associated Diagnosis Comments DENTAL CASE MANAGEMENT - MOTIVATIONAL INTV Routine 12/28/2024 9:40 AM EDT Encounter for dental examination BITEWINGS - FOUR RADIOGRAPHIC IMAGES Routine 06/28/2024 [...] Most Recently Relevant to Health Maintenance Insurance [facility]AL
--- OUTSIDE RECORDS SUMMARY | 2025-01-14 12:43 | XMS_ITS | Clinical Summary ---
Author Organization [facility] Address [address] [facility] [address] [place] [address] Phone Care Team Providers Care Relations Manager Name Role Phone Татьяна Haynes MD Primary [...] each day 2 Active Insulin Infusion Pump ([employer] G6 Control-IQ Ins Pump) device Active metFORMIN [...] Office Visit [facility] [address] [address] Paz Dee ARNP Hypertension (Primary Dx); Nephrolithiasis; Idiopathic chronic gout without tophus, not otherwise specified from Last 3 Months Immunizations Immunization Administration Dates Next Due Influenza (IM) Preservative [...] [facility] [address] [phone] Paz Dee ARNP [address] [phone] Health Maintenance Due Date Last Done Comments Hepatitis B Vaccine (1 of 3 - 19+ 3-dose series) 1985 Pneumococcal Vaccine: 50+ Ye ars (1 of 2 - PCV) 1985 Colorectal Cancer Screening: Annual FOBT 2015 Colorectal Cancer Screening: Colonoscopy 2015 Colorectal Cancer Screening: Sigmoidoscopy 2015 Diabetes: Ophthalmology Exam 12/14/2021 Diabetes: Pedal Pulse Checked 12/14/2021 Diabetes: Sensory Foot Exam 12/14/2021 Diabetes: Visual Foot Exam 12/14/2021 Diabetes: Hemoglobin A1C 06/11/2023 03/11/2023 Influenza Vaccine (Season Ended) 2025 07/10/20 20, 07/03/2019 Procedures Procedure Name Priority Date/Time Associated Diagnosis [...] chronic gout without tophus, not otherwise specified HEMOGLOBIN A1C Routine 03/11/2023 2:17 PM EDT Nephrolithiasis Hypertension 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) from Last 3 Months or Most Recently Relevant to Health Maintenance Results * Basic metabolic panel (11/30/2024 2:56 PM EST) Sodium 143 134 - 144 mmol/L [facility] Potassium 4.5 3.5 - 5.2 mmol/L [facility] Chloride 106 96 - 106 mmol/L [facility] Glucose 97 70 - 99 mg/dL [facility] BUN 14 6 - 24 mg/dL [facility] Creatinine 0.80 0.76 - 1.27 mg/dL [facility] eGFR CKD-EPI CR 2020 103 >59 mL/min/1.7 3 [facility] BUN/Creatinine Ratio 18 9 - 20 [facility] Bicarbonate (CO2) 23 20 - 29 mmol/L [facility] Calcium 9.8 8.7 - 10.2 mg/dL [facility] Blood (Blood, Venous) 11/30/2024 2:56 PM EST 11/30/2024 Paz Dee [facility] LAB BLOOD ORDERABLES Final Result Performing Organization Address [facility] de Phone Number LABABS [facility] [address] [place] [address] * (ABNORMAL) Urine Protein / creatinine ratio (11/30/2024 2:55 PM EST) Creatinine, Ur 259.4 Not Estab. mg/dL [facility] Protein, Ur 104.8 Not Estab. mg/dL [facility] Urine Protein/Creati nine Ratio 404(H) 0 - 200 mg/g creat [facility] Urine (Urine, Clean Catch) 11/30/2024 2:55 PM EST 11/30/2024 Paz Dee [facility] LAB URINE ORDERABLES Final Result Performing Organization Address [facility] de Phone Number LABABS [facility] [address] [place] [address] * Urine Albumin / Creatinine Ratio (11/30/2024 2:55 PM EST) Albumin, Urine 28.7 Not Estab. ug/mL [facility] Albumin/Creatin ine Ratio 11 0 - 29 mg/g creat [facility] Comment: ? Normal: ?0 - ??29 ? Moderately increased: 30 - 300 ? Severely increased: ? >300 Urine (Urine, Clean Catch) 11/30/2024 2:55 PM EST 11/30/2024 PazKash [facility] LAB URINE ORDERABLES Final Result Performing Organization Address City/[facility]/ZIP Co de Phone Number [employer] [facility] [address] [place] [address] * (ABNORMAL) Uric acid (11/30/2024 2:55 PM EST) Uric Acid 2.7(L) 3.8 - 8.4 mg/dL [facility] Comment:Therapeutic target f or gout patients: <6.0 Blood (Blood, Venous) 11/30/2024 2:55 PM EST 11/30/2024 Result [facility] LAB BLOOD ORDERABLES Final Result Performing Organization Address City/[facility]/ZIP Co de Phone Number [employer] [facility] [address] [place] [address] * (ABNORMAL) Hemoglobin A1c (03/11/2023 2:17 PM EDT) Hemoglobin A1C 6.3(H) (4.0-5.6) % [facility] Comment: MONITORING: In known diabetic patients, hemoglobin A1c targets should be discussed with health care provider. DIAGNOSTIC USE: ??The [place] Diabetes Association (ADA) and the World Health [...] Supplement 1 Testing performed or reported by [facility], a Service of [facility], [address] [place] [address] Terrell Carver MD, Green Meat Grader [facility]# [id number] Blood (Blood, Venous) 03/11/2023 2:17 PM EDT 03/11/2023 2:18 PM EDT Aren Hoskins MD LAB BLOOD ORDERABLES Angelita adngelo Result [facility] from Last 3 Months or Most Recently Relevant to Health Maintenance Insurance [facility] ([id number]) D[place] [phone] [facility] ([id number]) Care Teams Relations Manager Relationship Specialty Start Date End Date Татьяна Haynes MD [address] [address] PCP - General Internal Medicine 01/25/23
== END 2025-01-14 11:54 | disposition home or self-care (01) ==
PROVIDERS: PCP Internal Medicine; Visit Provider Hospitalist
DX: G47.33 Obstructive sleep apnea (adult) (pediatric) (principal); B94.8 Sequelae of other specified infectious and parasitic diseases; J45.40 Moderate persistent asthma, uncomplicated; R40.0 Somnolence
CPT/HCPCS: 99214

== ENCOUNTER → 2025-01-14 10:51 | Outpatient (BNVA) | payer OTHER, SELFPAY | PROVIDERS: PCP Internal Medicine; Visit Provider Hospitalist | DX: J45.40 Moderate persistent asthma, uncomplicated (principal); J44.9 Chronic obstructive pulmonary disease, unspecified; G47.33 Obstructive sleep apnea (adult) (pediatric); B94.8 Sequelae of other specified infectious and parasitic diseases; R40.0 Somnolence; Z99.89 Dependence on other enabling machines and devices | CPT/HCPCS: 99212 ==

== ENCOUNTER 2025-01-15 15:31 | Outpatient (AMB) | payer OTHER, SELFPAY ==
--- NOTE | 2025-01-15 15:43 | MHC.PC.OV ---
Vital Signs 01/15/25 15:53 BP 110/60 Blood Pressure Location Rt brachial Position Sitting Respiration 14 Pulse 79 Pulse Source Pulse Oximeter Pulse Oximetry (%) 96 Oxygen Delivery Method Room Air Intake Visit Reasons: consern of mental health Intake Note: Follow up mental health Medical Surgery Nurse Required: No Allergies empagliflozin [From Jardiance] Allergy (Severe, Verified 01/15/25 15:48) Itching morphine [Morphine] Allergy (Severe, Verified 01/15/25 15:48) HIVES, THROAT CLOSES penicillin G [Penicillin G] Allergy (Severe, Verified 01/15/25 15:48) ANAPHYLAXIS Sulfa (Sulfonamide Antibiotics) [SULFA (SULFONAMIDE ANTIBIOTICS)] Allergy (Severe, Verified 01/15/25 15:48) ANAPHYLAXIS Gadolinium-Containing Contrast Medi [Gadolinium-Containing Agents] Allergy (Intermediate, Verified 01/15/25 15:48) Hives/Rash, dizziness, blue spots adhesive tape Adverse Reaction (Intermediate, Verified 01/15/25 15:48) Rash tramadol Adverse Reaction (Intermediate, Verified 01/15/25 15:48) Gastrointestinal Upset hydromorphone [From Dilaudid] Adverse Reaction (Verified 01/15/25 15:48) Anaphylaxis Tobacco use date assessed: 10/15/24 Dental Screening Dental Screen Date: 06/19/24 HPI HPI Comments History of Present Illness Details The patient is a 59 year old male with a past medical history of type 2 diabetes, hypertension, depression, gout, insomnia, sony/narcolepsy presenting for follow up accompanies Mohit today. Says he has been more anglin recently. He is currently on prozac 40 mg daily. He is on nuvigil. DM: Was previously seeing endocrinology. On metformin twice daily. lantus 22 units, actos, trulicity. CV: Follows with cardiology, Dr Ocampo. On lisinopril, amlodipine, toprol 25, crestor. Reports blood pressure has been fluctuating Rsp: Follows with pulmonary-Dr Saba. On dulera, azithromycin 3x/wk Has been having left sided abdominal pain intermittently. Sometimes radiates to the left lower abdomen. No vomiting. Denies weight loss ROS see HPI PHYSICAL EXAM: GENERAL: Alert and oriented x 3. NAD EYES: EOMI. Anicteric. HENT: Moist mucous membranes. No scleral icterus. No cervical lymphadenopathy. LUNGS: Clear to auscultation bilaterally. CARDIOVASCULAR: Regular rate and rhythm. No murmur. No JVD. ABDOMEN: Soft, non-tender +bs EXTREMITIES: No edema. Non-tender. SKIN: No rashes or lesions. Warm. NEUROLOGIC: No focal neurological deficits. CN II-XII grossly intact PSYCHIATRIC: Cooperative. Appropriate mood and affect [facility] Medical History Difficulty swallowing RSV (respiratory syncytial virus infection) Has daytime drowsiness Allergies History of anesthesia complications Family history of anesthesia complication Type 2 diabetes mellitus Murmur COPD (chronic obstructive pulmonary disease) Lumbar post-laminectomy syndrome Degenerative cervical spinal stenosis Neuropathic pain COVID-19 Chest pain Post herpetic neuralgia Pleuritic chest pain Obesity (BMI 30-39.9) Asthma Pneumonia SONY (obstructive sleep apnea) [id number]-AGAZL-71 syndrome Reactive airway disease On beta mitra at home History of pneumonia Vitamin D deficiency Left nephrolithiasis Dyslipidemia Diabetic polyneuropathy associated with type 2 diabetes mellitus Hypogonadism Failed back syndrome of lumbar spine Arthritis Back pain GERD (gastroesophageal reflux disease) History of fatty infiltration of liver History of ADHD Depression Elevated cholesterol HTN (hypertension) CAD (coronary artery disease) History of 2019 novel coronavirus disease (COVID-19) Cervical radiculopathy Nephrolithiasis Surgical History S/P cardiac catheterization Gynecomastia History of elbow surgery Hx laparoscopic cholecystectomy History of carpal tunnel release Hx of shoulder surgery Hx of arthroscopic knee surgery History of esophagogastroduodenoscopy (EGD) H/O colonoscopy Hx of lumbar discectomy Hx of cardiac catheterization Family History Father Diabetes Hypertension Myocardial infarction Mother Diabetes Stroke Alzheimers disease Pacemaker Brother Diabetes Heart problem Myocardial infarction Sister Myocardial infarction Maternal Grandmother Myocardial infarction Unknown No problems noted. Social History Household Members: Spouse and Family Housing: Apartment Are you a primary manager critical care unit to a significant other at home: No Do you presently have visiting nurse or other home services: No Alcohol intake: never Patient Tobacco Use Status: Never used Tobacco e-Cigarette/Vaping Use: Never Used Second Hand Smoke Exposure: No Advance Directives Date on File: 09/28/23 service: No Current occupational status: disabled Cognitive needs: No Hearing needs: No Vision needs: No Questionnaire PHQ-9 Over the last 2 weeks, how often have you been bothered by any of the following problems? 1. Little interest or pleasure in doing things: not at all 2. Feeling down, depressed, or hopeless: not at all 3. Trouble falling or staying asleep, or sleeping too much: nearly every day 4. Feeling tired or having little energy: nearly every day 5. Poor appetite or overeating: nearly every day 6. Feeling bad about yourself - or that you are a failure or have let yourself or your family down: not at all 7. Trouble concentrating on things, such as reading the newspaper or watching television: not at all 8. Moving or speaking so slowly that other people could have noticed. Or the opposite - being so fidgety or restless that you have been moving around a lot more than usual: not at all 9. Thoughts that you would be better off or of hurting yourself in some way: not at all Total score: 9 Depression Screening Interpretation: Positive Depression Screening Follow-up: Existing condition Depression Screening Done: Yes 61900 - PHQ-9 Billing: Yes Source: Developed by Drs. Osvaldo Velasquez, Keyona Martinez, Luc Martinez and colleagues, with an educational jose from [employer]. Thrive Questionnaire Date Thrive assessed: 01/15/25 I am a: Patient Within the past 12 months, did the food you bought not last and you didn't have the money to get more?: Never true Within the past 12 months, did you worry whether your food would run out before you got money to buy more?: Never true Do you have trouble paying for medicines?: No Do you have trouble getting transportation to medical appointments?: No Do you have trouble paying your heating and electricity bill?: No Do you have trouble taking care of your child, family member or friend?: No Do you have trouble with day-to-day activities such as bathing, preparing meals, shopping, managing finances, etc.?: No Are you currently unemployed and looking for a job?: No Are you interested in more education?: No Please select the resources that you would like help with: None THRIVE Score: 0 OANH-7 AMB Questionnaire OANH-7 Date OANH - 7 assessed: 01/15/25 Feeling nervous, anxious, or on edge: 0 = Not at all Not being able to stop or control worryin = Not at all Worrying too much about different things: 0 = Not at all Trouble relaxin = Several days Being so restless that it is hard to sit still: 0 = Not at all Becoming easily annoyed or irritable: 3 = Nearly every day Feeling afraid as if something awful might happen: 0 = Not at all Total OANH-7 score (0-4 normal; 5-9 mild; 10-14 moderate; 15-21 severe): 4 Source: Developed by Drs. Osvaldo Velasquez, Keyona Martinez, Luc Martinez and colleagues, with an educational jose from [employer]. OANH-7 Assessment Billing OANH-7 Assessment Tool: OANH-7 Assessment 60853 Physical exam (Primary Care) Vital Signs: Last Vital Signs Pulse 79 01/15/25 15:53 Resp 14 01/15/25 15:53 BP 110/60 01/15/25 15:53 Pulse Ox 96 01/15/25 15:53 Oxygen Delivery Method Room Air 01/15/25 15:53 Tobacco/Smoking Status: Tobacco use Status Tobacco use date assessed 10/15/24 01/15/25 15:45 Patient Tobacco Use Status Never used Tobacco 01/15/25 15:45 e-Cigarette/Vaping Use Never Used 01/15/25 15:45 PHQ-9: PHQ-9 Score PHQ-9: Total score 9 01/16/25 16:08 Depression Screening Interpretation: Positive Depression Screening Follow-up: Existing condition Thrive Assessment: Date of Thrive Assessment Date Thrive assessed 10/12/24 01/15/25 20:05 Coding Level of Care Code New Pt Level 4 (28813) Complex EM visit Add On G2211 Diagnoses Mood disorder F39 Left upper quadrant abdominal pain R10.12 Abdominal location: left upper quadrant Type 2 diabetes mellitus with hyperglycemia, with long-term current use of insulin E11.65; Z79.4 Diabetes mellitus penitentiary insulin use: with termite treater helper use Moderate episode of recurrent major depressive disorder F33.1 Active/Remission status: currently active Major depression episode severity: moderate Additional Codes OANH-7 Assessment Billing - OANH-7 Assessment Tool: OANH-7 Assessment 25518 ([id number]) PHQ-9 - 61629 - PHQ-9 Billing: Yes ([id number]) Assessment & Plan Assessment & Plan (1) Mood disorder: Code(s): F39 - Unspecified mood [affective] disorder Category: Medical (2) Abdominal pain: Code(s): R10.9 - Unspecified abdominal pain Category: Medical Qualifiers: Abdominal location: left upper quadrant Qualified Code(s): R10.12 - Left upper quadrant pain (3) Type 2 diabetes mellitus with hyperglycemia: Code(s): E11.65 - Type 2 diabetes mellitus with hyperglycemia Category: Medical Qualifiers: Diabetes mellitus penitentiary insulin use: with termite treater helper use Qualified Code(s): E11.65 - Type 2 diabetes mellitus with hyperglycemia; Z79.4 - skilled nursing (current) use of insulin (4) Recurrent major depression: Code(s): F33.9 - Major depressive disorder, recurrent, unspecified Category: Medical Qualifiers: Active/Remission status: currently active Major depression episode severity: moderate Qualified Code(s): F33.1 - Major depressive disorder, recurrent, moderate Plan 59 y/o for follow up Diabetes, last A1C 8.5% Mood disorder-increase prozac.Discussed possibly adding additional medication Abdominal pain. CT abd/pelvis ordered Medications: New fluoxetine Take along with 40mg daily for a total of 60mg daily 20 mg PO DAILY 90 caps 3RF lorazepam 1 mg PO BID PRN 60 tabs 3RF acute anxiety Changed From fluoxetine 40 mg PO DAILY 90 days 90 caps 2RF F32.9 - Major depressive disorder, single episode, unspecified To fluoxetine Take along with 20mg daily for a total of 60mg daily 40 mg PO DAILY 90 caps 2RF 90 days F32.9 - Major depressive disorder, single episode, unspecified
[2025-01-15 15:53] VITALS: BP 110/60; PULSE 79; RESP 14; O2SAT 96
--- OUTSIDE RECORDS SUMMARY | 2025-01-15 18:37 | XMS_ITS | Clinical Summary ---
Author Organization [facility] Address [address] [place] [address] Care Team Providers Care Home Teaching Grades 9 Thru 12 Teacher Name Role Phone Unavailable Primary Care Provider [...] Description 12/28/2024 9:40 AM EDT Office Visit [facility] [address] [place] [address] Paz Gay Encounter for dental examination (Primary [...] 2016 Dental Perio Charting 02/17/2024 02/14/2023, 022 Dmi-VORWV-45 ( season) 2024 Imm-Influenza (#1) 2024 07/10/2020, [...] Most Recently Relevant to Health Maintenance Insurance [facility]
--- OUTSIDE RECORDS SUMMARY | 2025-01-15 18:37 | XMS_ITS | Clinical Summary ---
Author Organization [facility] Address [address] [facility] [address] [place] [address] Phone Care Team Providers Care Solar Power Installer Name Role Phone Татьяна Haynes MD Primary [...] each day 2 Active Insulin Infusion Pump ([employer] G6 Control-IQ Ins Pump) device Active metFORMIN [...] Office Visit [facility] [address] [address] Paz Dee ARNP Hypertension (Primary [...] Visit [facility] [address] [phone] Paz Dee ARNP [address] [phone] Health Maintenance Due Date Last Done Comments [...] Sodium 143 134 - 144 mmol/L [facility] Potassium 4.5 3.5 - 5.2 mmol/L [facility] Chloride 106 96 - 106 mmol/L [facility] Glucose 97 70 - 99 mg/dL [facility] BUN 14 6 - 24 mg/dL [facility] Creatinine 0.80 0.76 - 1.27 mg/dL [facility] eGFR CKD-EPI CR 2020 103 >59 mL/min/1.7 3 [facility] BUN/Creatinine Ratio 18 9 - 20 [facility] Bicarbonate (CO2) 23 20 - 29 mmol/L [facility] Calcium 9.8 8.7 - 10.2 mg/dL [facility] Blood (Blood, Venous) 11/30/2024 2:56 PM EST 11/30/2024 Paz Dee [facility] LAB BLOOD ORDERABLES Final Result Performing Organization Address [facility] de Phone Number LABSkycatch [facility] [address] [place] [address] * (ABNORMAL) Urine Protein / creatinine ratio (11/30/2024 2:55 PM EST) Creatinine, Ur 259.4 Not Estab. mg/dL [facility] Protein, Ur 104.8 Not Estab. mg/dL [facility] Urine Protein/Creati nine Ratio 404(H) 0 - 200 mg/g creat [facility] Urine (Urine, Clean Catch) 11/30/2024 2:55 PM EST 11/30/2024 Paz Dee [facility] LAB URINE ORDERABLES Final Result Performing Organization Address [facility] de Phone Number LABSkycatch [facility] [address] [place] [address] * Urine Albumin / Creatinine Ratio (11/30/2024 2:55 PM EST) Albumin, Urine 28.7 Not Estab. ug/mL [facility] Albumin/Creatin ine Ratio 11 0 - 29 mg/g creat [facility] Comment: ? Normal: ?0 - ??29 ? Moderately increased: 30 - 300 ? Severely increased: ? >300 Urine (Urine, Clean Catch) 11/30/2024 2:55 PM EST 11/30/2024 PazZipfit [facility] LAB URINE ORDERABLES Final Result Performing Organization Address City/[facility]/ZIP Co de Phone Number [employer] [facility] [address] [place] [address] * (ABNORMAL) Uric acid (11/30/2024 2:55 PM EST) Uric Acid 2.7(L) 3.8 - 8.4 mg/dL [facility] Comment:Therapeutic target f or gout patients: <6.0 Blood (Blood, Venous) 11/30/2024 2:55 PM EST 11/30/2024 Result [facility] BLOOD ORDERABLES Final Result Performing Organization Address City/[facility]/ZIP Co de Phone Number [employer] [facility] [address] [place] [address] * (ABNORMAL) Hemoglobin A1c (03/11/2023 2:17 PM EDT) Hemoglobin A1C 6.3(H) (4.0-5.6) % [facility] Comment: MONITORING: In known diabetic patients, hemoglobin A1c targets should be discussed with health care provider. DIAGNOSTIC USE: ??The [place] Diabetes Association (ADA) and the World Health [...] Supplement 1 Testing performed or reported by [facility], a Service of [facility], [address] [place] [address] Terrell Carver MD, Substation Operator Conversion [facility]# [id number] Blood (Blood, Venous) 03/11/2023 2:17 PM EDT 03/11/2023 2:18 PM EDT Aren Hoskins MD LAB BLOOD ORDERABLES Angelita dangelo Result [facility] from Last 3 Months or Most Recently Relevant to Health Maintenance Insurance [facility] ([id number]) D[place] ROTH[place] [id number] [facility] ([id number]) Care Teams Solar Power Installer Relationship Specialty Start Date End Date Татьяна Haynes MD [address] [address] PCP - General Internal Medicine 01/25/23
--- OUTSIDE RECORDS SUMMARY | 2025-01-15 18:38 | XMS_ITS | Patient Health Record ---
[facility] Address [address] [place] [address] Care Team Providers Care Radiologic Technology Instructor Name Role Phone Lani Oswald Primary Care Provider Unavailabl e Black, Margarita Unavailable [phone] Allergies Allergen (clinical drug ingredient) Drug/Non Drug Allergy documented on EMR Reaction Allergy Type Onset Date Status Information temporarily unavailable Amoxicillin hives,swelling throat Drug Allergy Active Information temporarily unavailable Aspirin Unknown Drug Allergy Active Information temporarily unavailable Bactrim swollen eyes Drug Allergy Active Information temporarily unavailable Morphine Sulfate hives, trouble breathing, fainting Drug Allergy Active Information temporarily unavailable Adhesive rash Allergy Active Information temporarily unavailable Iodine hives,swelling, trouble breathing Drug Allergy Active [...] tive Ranitidine 1 tab Oral Active Umeclidinium [place] 62.5 MCG/INH 1 puff Inhalation Once a [...] primary osteoarthritis of the ankle and/or foot ([id number]) Primary osteoarthritis, right ankle and foot (M19.071) Active confirmed Problem Polyneuropathy due to type 2 diabetes mellitus (753879306) Type 2 diabetes mellitus with diabetic polyneuropathy (E11.42) Active confirmed Problem [id number] 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 Plan Of Treatment Pending Test Test Name Order Date [id number] NAIL, 6 OR MORE 07/10/2020 [id number] NAIL, 6 OR MORE 01/08/2021 [id number] NAIL, 6 OR MORE 04/13/2021 [id number]-[id number] NAIL, 6 OR MORE 09/07/2021 33528-MOWAHAD NAIL, 6 OR MORE 12/17/2021 77301-PXVSQYW NAIL, 6 OR MORE 03/22/2022 52778-[id number] NAIL, 6 OR MORE 06/24/2022 41042-GTEFYSP NAIL, 6 OR MORE 09/23/2022 [id number] NAIL, 6 OR MORE 12/30/2022 43680-Swwh Destruction, 1-14 12/30/2022 78101-Ebjb Destruction, 1-14 09/23/2022 11265, J0702- INJECT or DRAIN, JOINT/BUR SA 12/17/2021 30994-IIUG SKIN LESIONS, 2 TO 4 06/24/20 86851-YIXE SKIN LESIONS, 2 TO 4 12/31/19 15516-VGGD SKIN LESIONS, 2 TO 4 09/23/20 40010, [id number]-JPLWQ/INJECT, JOINT/BURSA 0 11/12/2019 48124, U2615-OUCXU/INJECT, JOINT/BURSA 0 03/22/2022 X ray : Ankle, right 3V 12/17/2021 Insurance Providers Payer Name Payer Address Payer Phone Subscriber Number Group Number Insured Name Patient Relationship to Insured Coverage Start Date Coverage End Date [facility] [employer] Claims [address] [place] [id number] [phone] [id number] Mohit Segovia Self - patient is the [...]
== END 2025-01-15 16:23 | disposition home or self-care (01) ==
LOC: HO.HMCFM 15:31
PROVIDERS: PCP Internal Medicine; Visit Provider Internal Medicine
DX: E11.65 Type 2 diabetes mellitus with hyperglycemia (principal); Z79.4 Long term (current) use of insulin; F33.1 Major depressive disorder, recurrent, moderate; F39 Unspecified mood [affective] disorder; R10.12 Left upper quadrant pain

== ENCOUNTER → 2025-01-15 15:31 | Outpatient (BNVA) | payer OTHER, SELFPAY | PROVIDERS: PCP Internal Medicine; Visit Provider Internal Medicine | DX: E11.9 Type 2 diabetes mellitus without complications (principal); I10 Essential (primary) hypertension; G47.33 Obstructive sleep apnea (adult) (pediatric); G47.419 Narcolepsy without cataplexy; R10.12 Left upper quadrant pain; E11.65 Type 2 diabetes mellitus with hyperglycemia; F33.1 Major depressive disorder, recurrent, moderate; Z79.84 Long term (current) use of oral hypoglycemic drugs; Z79.4 Long term (current) use of insulin | CPT/HCPCS: 96127; 99212 ==

== ENCOUNTER 2025-04-01 16:39 | Outpatient (AMB) | payer OTHER, SELFPAY ==
--- NOTE | 2025-04-01 16:03 | A.OFFPC_ITS ---
Intake Visit Reasons: Contrast dye allergen Intake Note: Discuss alternative imaging that doesn't use contrast dye. Investigation Manager Required: Yes Investigation Manager Language: Cash Register Repairer Name: [id number] Allergies empagliflozin (From Jardiance) Allergy (Severe, Verified 04/01/25 16:05) Itching morphine (Morphine) Allergy (Severe, Verified 04/01/25 16:05) HIVES, THROAT CLOSES penicillin G (Penicillin G) Allergy (Severe, Verified 04/01/25 16:05) ANAPHYLAXIS Sulfa (Sulfonamide Antibiotics) (SULFA (SULFONAMIDE ANTIBIOTICS)) Allergy (Severe, Verified 04/01/25 16:05) ANAPHYLAXIS Gadolinium-Containing Contrast Medi (Gadolinium-Containing Agents) Allergy (Intermediate, Verified 04/01/25 16:05) Hives/Rash, dizziness, blue spots adhesive tape Adverse Reaction (Intermediate, Verified 04/01/25 16:05) Rash tramadol Adverse Reaction (Intermediate, Verified 04/01/25 16:05) Gastrointestinal Upset hydromorphone (From Dilaudid) Adverse Reaction (Verified 04/01/25 16:05) Anaphylaxis Tobacco use date assessed: 04/01/25 Dental Screening Dental Screen Date: 04/01/25 Did you have a dental visit in the last 12 months?: Yes Did you have a dental problem in the last 6 months where you did not have access to dental care?: No Was dental information given to patient?: Patient has dentist HPI HPI Comments History of Present Illness Details The patient is a 60 year old male with a past medical history of type 2 diabetes, hypertension, depression, gout, insomnia, sony/narcolepsy presenting for follow up He was seen in January. He had c/o left sided abdominal pain intermittently. Left upper mid quadrant/flank. Sometimes radiates to the left lower abdomen. No vomiting. Denies weight loss. He had CT abd/pelvis with iv ordered but he has had reactions to both oral and iv contrast in the past and so would like consideration of non contrast. Pain is not worsened by eating or moving. Holding/ pressing the left upper abdomen seems to relieve the discomfort. He has a history of lumbar surgery, left nephrolithiasis, lumbar DDD. DM: Was previously seeing endocrinology. On metformin twice daily. lantus 22 units, actos, ? still trulicity. CV: Follows with cardiology, Dr Ocampo. On lisinopril, amlodipine, toprol 25, crestor. Blood pressure improved control. Had recent cardiac cath Rsp: Follows with pulmonary-Dr Saba. On dulera, azithromycin 3x/wk. On nuvigil MSK: He has a history of lumbar DDD. History of lumbar laminectomy. . Last visit with increased symptoms of moodiness. He was on prozac 40mg daily. This was increased to 60mg daily. He endorses improved mood, more patience on the increased dose ROS see HPI PHYSICAL EXAM: [facility] Medical History Difficulty swallowing RSV (respiratory syncytial virus infection) Has daytime drowsiness Allergies History of anesthesia complications Family history of anesthesia complication Type 2 diabetes mellitus Murmur COPD (chronic obstructive pulmonary disease) Lumbar post-laminectomy syndrome Degenerative cervical spinal stenosis Neuropathic pain COVID-19 Chest pain Post herpetic neuralgia Pleuritic chest pain Obesity (BMI 30-39.9) Asthma Pneumonia SONY (obstructive sleep apnea) 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 Reactive airway disease On beta mitra at home History of pneumonia Vitamin D deficiency Left nephrolithiasis Dyslipidemia Diabetic polyneuropathy associated with type 2 diabetes mellitus Hypogonadism Failed back syndrome of lumbar spine Arthritis Back pain GERD (gastroesophageal reflux disease) History of fatty infiltration of liver History of ADHD Depression Elevated cholesterol HTN (hypertension) CAD (coronary artery disease) History of 2019 novel coronavirus disease (COVID-19) Cervical radiculopathy Nephrolithiasis Surgical History S/P cardiac catheterization Gynecomastia History of elbow surgery Hx laparoscopic cholecystectomy History of carpal tunnel release Hx of shoulder surgery Hx of arthroscopic knee surgery History of esophagogastroduodenoscopy (EGD) H/O colonoscopy Hx of lumbar discectomy Hx of cardiac catheterization Family History Father Diabetes Hypertension Myocardial infarction Mother Diabetes Stroke Alzheimers disease Pacemaker Brother Diabetes Heart problem Myocardial infarction Sister Myocardial infarction Maternal Grandmother Myocardial infarction Unknown No problems noted. Social History Household Members: Spouse and Family Housing: Apartment Are you a primary career coordinator to a significant other at home: No Do you presently have visiting nurse or other home services: No Alcohol intake: never Patient Tobacco Use Status: Never used Tobacco e-Cigarette/Vaping Use: Never Used Second Hand Smoke Exposure: No Advance Directives Date on File: 09/28/23 service: No Current occupational status: disabled Cognitive needs: No Hearing needs: No Vision needs: No Questionnaire Thrive Questionnaire Date Thrive assessed: 10/12/24 OANH-7 AMB Questionnaire OANH-7 Date OANH - 7 assessed: 01/15/25 Source: Developed by Drs. Osvaldo Velasquez, Keyona Martinez, Luc Martinez and colleagues, with an educational jose from [employer]. Physical exam (Primary Care) Tobacco/Smoking Status: Tobacco use Status Tobacco use date assessed 04/01/25 04/01/25 16:19 Patient Tobacco Use Status Never used Tobacco 04/01/25 16:04 e-Cigarette/Vaping Use Never Used 04/01/25 16:04 Thrive Assessment: Date of Thrive Assessment Date Thrive assessed 10/12/24 04/01/25 16:04 Telehealth Telehealth Telehealth Platform: Telephone Location of provider rendering services: practice address Location of patient: address on file Patient Identification confirmed using: Name, : Yes Telehealth method: voice only Patient verbally consented to treatment: Yes Patient verbally consented to billing insurance company: Yes Patient informed of any privacy concerns related to visit: Yes Minutes spent on Phone/Video with Pt.: 16 Coding Level of Care Code Tele Est Pt Level 2 (15819) Diagnoses Left upper quadrant abdominal pain R10.12 Abdominal location: left upper quadrant Left upper quadrant abdominal pain R10.12 Nephrolithiasis N20.0 Coronary artery disease involving [place] coronary artery of [place] heart without angina pectoris I25.10 Coronary Disease-Associated Artery/Lesion type: [place] artery [place] vs. transplanted heart: [place] heart Associated angina: without angina Assessment & Plan Assessment & Plan (1) Abdominal pain: Code(s): R10.9 - Unspecified abdominal pain Category: Medical Qualifiers: Abdominal location: left upper quadrant Qualified Code(s): R10.12 - Left upper quadrant pain (2) Left upper quadrant abdominal pain: Code(s): R10.12 - Left upper quadrant pain Category: Medical (3) Nephrolithiasis: Code(s): N20.0 - Calculus of kidney Category: Medical (4) CAD (coronary artery disease): Comment: Echo October 2019 EF 60-65% June 2017, mild LAD [id number] HCS. DEnies recent chest pain. Code(s): I25.10 - Atherosclerotic heart disease of [place] coronary artery without angina pectoris Category: Medical Qualifiers: Coronary Disease-Associated Artery/Lesion type: [place] artery [place] vs. transplanted heart: [place] heart Associated angina: without angina Qualified Code(s): I25.10 - Atherosclerotic heart disease of [place] coronary artery without angina pectoris Plan 60 year old for follow up Ongoing abdominal pain, significant contrast allergy History of nephrolithiasis, diabetes CT ordered without contract Referral to GI. Colonoscopy looks overdue Orders: Orders CT abdomen pelvis wo IV con Today K59.00 - Constipation, unspecified, K76.0 - Fatty (change of) liver, not elsewhere classified, N20.0 - Calculus of kidney, R10.12 - Left upper quadrant pain Referrals Gastroenterology Referral Z12.11 - Encounter for screening for malignant neoplasm of colon
--- OUTSIDE RECORDS SUMMARY | 2025-04-01 16:41 | XMS_ITS | Patient Health Record ---
Author Organization [facility] Address [address] [place] [address] Care Team Providers Care Concrete Pouring Supervisor Name Role Phone Darek Lani Primary Care Provider Unavailabl e Black, Margarita Unavailable [phone] Allergies Allergen (clinical drug ingredient) Drug/Non Drug [...] 0.77 % 1 application Externally Once a day; Duration: 30 days 09/23/2022 Active Ciclopirox 8 % 1 application Externally Once a day; Duration: 30 days 01/08/2021 Active Ciclopirox Olamine 0.77 % 1 application Externally Twice a day; Duration: 30 days 01/08/2021 Active Methylphenidate HCl 10 MG 1 tablet on em pty stomach Orally Twice a day Not-Taking Lyrica 150 MG 1 capsule Orally Once a day Not-Taking Ciclopirox Olamine 0.77 % 1 application Externally Twice a day; Duration: 30 days 02/04/2020 Active Diclofenac Sodium 3 % 1 application Transdermal Twice a day; Duration: 30 day(s) 02/04/2020 Active ASO Ankle/Foot Stablizing AFO As directed Wear Daily; Duration: as needed 03/31/2020 Active Tamsulosin HCl Activ e Metoprolol Tartrate 50 MG 1 tablet with food Orally Twice a day; Duration: 30 day(s) Active Fenofibrate 160 MG 1 tablet with food Orally Once a day; Duration: 30 day(s) Active Atorvastatin Calcium 80 MG 1 tablet Orally Once a day; Duration: 30 day(s) Active Naproxen 500 MG 1 tablet Orally Twice a day; Duration: 30 day(s) Not-Taking dexAMETHasone 4 MG 1 tablet Orally Twice a day; Duration: 30 day(s) Not-Taking Lopressor 50 MG 1 tablet with food Orally Twice a day; Duration: 30 day(s) Not-Taking hydroCHLOROthiazide 12.5 MG 1 capsule in the morning Orally Once a day; Duration: 30 day(s) Not-Taking FLUoxetine HCl 20 MG 1 capsule Orally Once a day; Duration: 30 day(s) 1 capsule on odd days, 2 capsules on even days Active metFORMIN HCl ER 750 MG 1 tablet with evening meal Orally Once a day; Duration: 30 day(s) Active Losartan Potassium 50 MG 1 tablet Orally Once a day; Duration: 30 day(s) Active Pregabalin 150 MG 1 capsule Orally Once a day Active Lantus Active NovoLOG Active Albuterol Sulfate Ac tive Ranitidine 1 tab Oral Active Umeclidinium [place] 62.5 MCG/INH 1 puff Inhalation Once a [...] primary osteoarthritis of the ankle and/or foot (139406340) Primary osteoarthritis, right ankle and foot (M19.071) Active confirmed Problem Polyneuropathy due to type 2 diabetes mellitus (219702400) Type 2 diabetes mellitus with diabetic polyneuropathy (E11.42) Active confirmed Problem Traumatic arthropathy of the ankle and/or foot (991898396) 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 Plan Of Treatment Pending Test Test Name Order Date [id number] NAIL, 6 OR MORE 07/10/2020 53560-QRYYWSS NAIL, 6 OR MORE 01/08/2021 27782-WORVSPR NAIL, 6 OR MORE 04/13/2021 25301-PXRJMKN NAIL, 6 OR MORE 09/07/2021 97381-CRAXKQU NAIL, 6 OR MORE 12/17/2021 48122-LZAZDOA NAIL, 6 OR MORE 03/22/2022 11287-YMROODR NAIL, 6 OR MORE 06/24/2022 55711-TSNXFLU NAIL, 6 OR MORE 09/23/2022 07098-NNVSMLU NAIL, 6 OR MORE 12/30/2022 22345-Vwgy Destruction, 1-14 12/30/2022 49994-Vczl Destruction, 1-14 09/23/2022 12555, J0702- INJECT or DRAIN, JOINT/BUR SA 12/17/2021 29856-MTBE SKIN LESIONS, 2 TO 4 06/24/20 64961-PWMN SKIN LESIONS, 2 TO 4 12/31/19 19624-SAPY SKIN LESIONS, 2 TO 4 09/23/20, R6463-VQXVF/INJECT, JOINT/BURSA 0 11/12/2019, Q6515-NBDJQ/INJECT, JOINT/BURSA 0 03/22/2022 X ray : Ankle, right 3V 12/17/2021 Insurance Providers Payer Name Payer Address Payer Phone Subscriber Number Group Number Insured Name Patient Relationship to Insured Coverage Start Date Coverage End Date [facility] SCO Claims [address] [place] [id number] Mohit Segovia Self - patient is the [...] surgery right carpal tunnel 2012 lumbar discectomy 2001 Arthroscopic shoulder Sx 2018 Right elbow 2011 cardiac catheterization left shoulder 2019 Disk 2005 gall bladder 11/07/2019 Hospitalization History Reason Date(Month/Year) [facility] 06/24
--- OUTSIDE RECORDS SUMMARY | 2025-04-01 16:41 | XMS_ITS | Clinical Summary ---
Author Organization [facility] Address [address] [place] [address] Care Team Providers Care Assembler Radio And Electrical Name Role Phone Unavailable Primary Care Provider [...] 2016 Dental Perio Charting 02/17/2024 02/14/2023, 022 [id number] ( season) 2024 Alcohol and Drug Screen 10/03/2024 Depression Annual Screen 10/03/2024 Imm-Influenza (Season Ended) 2025 07/10/2020, 07/03/2019 Hypertension Screening (#1) 06/27/2025 Tobacco Screening 06/28/2025 [...] Most Recently Relevant to Health Maintenance Insurance [facility]
== END 2025-04-01 17:05 | disposition home or self-care (01) ==
LOC: HO.HMCFM 16:39
PROVIDERS: PCP Internal Medicine; Visit Provider Internal Medicine
DX: R10.12 Left upper quadrant pain (principal); N20.0 Calculus of kidney; I25.10 Atherosclerotic heart disease of native coronary artery without angina pectoris

== ENCOUNTER → 2025-05-07 13:01 | Outpatient (REF) | payer OTHER, SELFPAY ==
--- NOTE | 2025-05-07 13:04 | CA_ITS ---
Transthoracic Echocardiogram Patient (Last, First, Middle): Mohit Segovia, Gender: Male Date of : 1965 Age: 60 Procedure Date: 05/07/2025 Procedure Type: Transthoracic Echocardiogram Location: OP Height: 182. cm Weight: 99.79 kg BSA: 2.21 m2 Heart Rate: 67 bpm BP: 105 / 70 mmHg Pin Inserter Regulator: CANDELARIA Referring MD: Robbie Ocampo MD Symptoms: I35.9 - Nonrheumatic aortic valve disorder, unspecified Study Quality: Fair ECG Rhythm: Sinus Conclusions: - The left ventricular systolic function is normal. The calculated ejection fraction is 63% by biplane method. - There is mild aortic valve stenosis. Findings Left Ventricle Normal left ventricular cavity size. There is normal left ventricular wall thickness. The left ventricular systolic function is normal. The calculated ejection fraction is 63% by biplane method. There is no evidence of regional wall motion abnormalities. Diastolic function is normal for age. Right Ventricle Normal right ventricular cavity size and systolic function. Atria Both atria are normal in size. Aortic Valve There is a normal trileaflet aortic valve. There is mild calcification of the aortic valve. There is mild aortic valve stenosis. There is no aortic valve regurgitation. Mitral Valve The mitral valve appears normal. There is no mitral valve regurgitation. There is no mitral valve stenosis. Pulmonic Valve The pulmonic valve is likely normal. Tricuspid Valve There is no tricuspid valve regurgitation. Tricuspid regurgitation envelope is inadequate for calculation of right ventricular systolic pressure. Great Vessels The asc aorta and aortic arch are normal in size. Venous The inferior vena cava is normal in size and collapses greater than 50% with inspiration. Pericardium/Pleural There is no evidence of pericardial effusion. Prior Study Comparison No significant change compared to prior study dated: 06/28/2023. Measurements 2D Linear Measurements IVSd: 0.87 0.6-0.9/0.6-1.0 cm LVIDd: 5.59 3.9-5.3/4.2-5.9 cm LVIDd Index: 2.53 2.4-3.2/2.2-3.1 cm/m2 LVIDs: 3.66 2.0-3.6 cm LVPWd: 1.04 0.7-1.1 cm LA Diam: 4.10 2.7-3.8/3.0-4.0 cm LAIDs Index: 1.86 1.5-2.3 cm/m2 LV Mass: 256.91 67-162/88-224 g LV Mass Index: 116.25 43-95/49-115 g/m2 LVOT Diam: 2.00 3.0+(-)1.3 cm 2D Systolic Function EF 4C: 66.10 >55% EF 2C: 59.20 >55% EF BiP: 62.90 >55% Mitral Valve MV Pk E: 0.74 MV PK A: 0.97 MV Decel Time: 201.00 E/A: 0.80 E'Lateral: 10.90 E'Medial: 5.98 E/E' Med: 12.30 E/E' Lat: 6.80 PHT: 59.00 MVA PHT: 3.73 Decel Sublette: 3.68 Aortic Valve AoV Pk Dangelo: 2.42 AoV Mn Dangelo: 1.72 AoV VTI: 0.51 AoV Pk Grad: 23.00 Aov Mn Grad: 13.00 RUSSELL Cont.VTI: 1.76 LVOT LVOT Pk Dangelo: 1.40 LVOT Mn Dangelo: 0.97 LVOT VTI: 0.28 LVOT Pk Grad: 8.00 LVOT Mn Grad: 4.00 LVOT Diam: 2.00 LVOT Area: 3.14 Diastolic Function MV Pk E: 0.74 MV Pk A: 0.97 E/A: 0.80 E'Medial: 5.98 E/E' Med: 12.30 E' Laterial: 10.90 E/E' Lat: 6.80 Right Ventricle TAPSE (mm): 21.90 TVS' Dangelo: 12.00 Tricuspid Valve RA Press: 3.00 Great Vessels Aorta Sinus of Valsalva: 3.20 2.0-3.5 cm Ao Asc: 3.10 2.1-3.4 cm Ao Arch: 2.80 Pulmonary Valve PV Pk Dangelo: 0.80 Peak PV Grad: 3.00 Updated in Other Vendor System with Status of Final Oliverio Matthews MD electronically signed on 05/09/2025 2:44:22 PM with status of Final
--- OUTSIDE RECORDS SUMMARY | 2025-05-07 13:38 | XMS_ITS | Patient Health Record ---
[facility] Address [address] [place] [address] Care Team Providers Care Network Operations Center Technician Name Role Phone Darek Lani Primary Care Provider Unavailabl e Black, Margarita Unavailable [phone] Allergies Allergen (clinical drug ingredient) Drug/Non Drug [...] tive Ranitidine 1 tab Oral Active Umeclidinium [place] 62.5 MCG/INH 1 puff Inhalation Once a [...] primary osteoarthritis of the ankle and/or foot (012969142) Primary osteoarthritis, right ankle and foot (M19.071) Active confirmed Problem Polyneuropathy due to type 2 diabetes mellitus (025020006) Type 2 diabetes mellitus with diabetic polyneuropathy (E11.42) Active confirmed Problem Traumatic arthropathy of the ankle and/or foot (062612645) 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 Plan Of Treatment Pending Test Test Name Order Date [id number] NAIL, 6 OR MORE 07/10/2020 16965-BSMBYAH NAIL, 6 OR MORE 01/08/2021 96186-VLQKPKC NAIL, 6 OR MORE 04/13/2021 91838-JRGCHKL NAIL, 6 OR MORE 09/07/2021 69575-EUABYSQ NAIL, 6 OR MORE 12/17/2021 65819-TWYLXPK NAIL, 6 OR MORE 03/22/2022 54656-KCCRBIX NAIL, 6 OR MORE 06/24/2022 48994-TBXJIPO NAIL, 6 OR MORE 09/23/2022 24681-GDWGCWQ NAIL, 6 OR MORE 12/30/2022 87366-Fabj Destruction, 1-14 12/30/2022 39840-Xxbu Destruction, 1-14 09/23/2022 35222, J0702- INJECT or DRAIN, JOINT/BUR SA 12/17/2021 57204-ERMD SKIN LESIONS, 2 TO 4 06/24/20 90022-HVNC SKIN LESIONS, 2 TO 4 12/31/19 45902-EGVD SKIN LESIONS, 2 TO 4 09/23/20, Q5876-AAQPJ/INJECT, JOINT/BURSA 0 11/12/2019, X6383-CYKXX/INJECT, JOINT/BURSA 0 03/22/2022 X ray : Ankle, right 3V 12/17/2021 Insurance Providers Payer Name Payer Address Payer Phone Subscriber Number Group Number Insured Name Patient Relationship to Insured Coverage Start Date Coverage End Date [facility] SCO Claims [address] [place] [id number] Mohit Segovia Self - patient is the [...] gall bladder 11/07/2019 Hospitalization History Reason Date(Month/Year) [facility] 06/24
--- OUTSIDE RECORDS SUMMARY | 2025-05-07 13:38 | XMS_ITS | Clinical Summary ---
Author Organization [facility] Address [address] [place] [address] Phone Care Team Providers Care Policeman Name Role Phone Татьяна Haynes MD Primary [...] each day 2 Active Insulin Infusion Pump (Intellution G6 Control-IQ Ins Pump) device Active metFORMIN [...] ankle and/or foot 0 12/22/2021 Nephrolithiasis 12/22/2021 Immunizations Immunization Administration Dates Next Due Influenza [...] Office Visit [facility] [address] [address] Paz Dee ARNP [address] [id number] Health Maintenance Due Date Last Done Comments [...] Hemoglobin A1C 06/11/2023 03/11/2023 Influenza Vaccine (#1) 2025 07/10/2020, 2018 Procedures Procedure Name Priority Date/Time Associated Diagnosis Comments HEMOGLOBIN A1C Routine 03/11/2023 2:17 PM EDT Nephrolithiasis Hypertension 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) from Last 3 Months or Most Recently Relevant to Health Maintenance Results * (ABNORMAL) Hemoglobin A1c (03/11/2023 2:17 PM EDT) Hemoglobin A1C 6.3(H) (4.0-5.6) % [facility] Comment: MONITORING: In known diabetic patients, hemoglobin A1c targets should be discussed with health care provider. DIAGNOSTIC USE: The [place] [employer] (ADA) and the World Health [...] Supplement 1 Testing performed or reported by [facility], [place] [address] Terrell Carver MD, Acidizer Helper [facility]# [id number] Blood specimen (specimen) Venous blood / Unknown 03/11/2023 2:17 PM EDT 03/11/2023 2:18 PM EDT us Aren Hoskins MD LAB BLOOD ORDERABLES Angelita l Result [facility] from Last 3 Months or Most Recently Relevant to Health Maintenance Insurance [facility] ([id number]) [facility] ([id number]) Care Teams Policeman Relationship Specialty Start Date End Date Татьяна Haynes MD [address] [address] PCP - General Internal Medicine 01/25/23
--- OUTSIDE RECORDS SUMMARY | 2025-05-07 13:38 | XMS_ITS | Clinical Summary ---
Author Organization [facility] Address [address] [place] [address] Phone Care Team Providers Care Shell Shop Supervisor Name Role Phone Christine De MD Primary Care Provider [phone] Allergies Active Allergy Reactions Criticality Noted Date Comments Adhesive Tape-Silicones Rash 04/17/2025 Empagliflozin Itching 04/17/2025 Gadolinium-Containing Contrast Media Hives,Rash,Dizziness 04/17/2025 Blue spots Hydromorphone Anaphylaxis High 04/17/2025 Iodinated Contrast Media 04/17/2025 Morphine 04/17/2025 Penicillins Anaphylaxis High 04/17/2025 Sulfa (Sulfonamide Antibiotics) Anaphylaxis High 04/17/2025 Tramadol 04/17/2025 GI upset Medications lidocaine (LIDODERM) 5 % patchIndicatio ns:Acute right-sided low back pain with right-sided sciatica Apply 1 patch topically 1 (one) time each day. Remove & discard patch within 12 hours or as directed by . 30 each 5 05/17/20 25 Active methylPREDNISo lone (MedroL) 32 mg tablet Take 1 tablet (32 mg total) by mouth 1 (one) time each day for 4 days. Okay to change to other formulations as long as the milligram amounts are equivalent 4 tablet 5 04/21/20 25 acetaminophen (TYLENOL) 500 mg tablet Take 2 tablets (1,000 mg total) by mouth every 6 (six) hours if needed for mild pain for up to 10 days. 30 tablet 5 04/27/20 25 naproxen (NAPROSYN) 500 mg tablet Take 1 tablet (500 mg total) by mouth 2 (two) times a day with meals for 15 days. 30 tablet 5 05/02/20 25 Encounters Date Type Department Care Team Description 04/17/2025 11:02 AM EDT - 04/17/2025 3:19 PM EDT Emergency [facility] Emergency [address] [place] [address] Pawel Ahmadi MD Acute right-sided low back pain with right-sided sciatica (Primary Dx) Discharge Disposition: Home or Self Care from Last 3 Months Social History Tobacco Use Types Packs/Day Years Used Date Smoking Tobacco: Never Assessed Sex and Gender Information Value Date Recorded Sex Assigned at Not on file Legal Sex Male 10:45 AM EDT Gender Identity Not on file Sexual Orientation Not on file Last Filed Vital Signs Vital Sign Reading Time Taken Comments Blood Pressure 121/64 04/17/2025 12:52 PM EDT Pulse 63 04/17/2025 12:52 PM EDT Temperature 36.4 C (97.5 F) 04/17/2025 12:52 PM EDT Respiratory Rate 16 04/17/2025 12:52 PM EDT Oxygen Saturation 98% 04/17/2025 12:52 PM EDT Inhaled Oxygen Concentration - - Weight 99.8 kg (220 lb) 04/17/2025 3:00 PM EDT Height 182.9 cm (6') 04/17/2025 3:00 PM EDT Body Mass Index 29.84 04/17/2025 3:00 PM EDT Plan of Treatment Health Maintenance Due Date Last Done Comments Diabetes: Annual Foot Exam 1976 Diabetes: Annual Retina Eye Exam 1976 Hepatitis B Vaccines (1 of + 3-dose series) 1985 COVID-19 Vaccine (2023- season) 2024 11/02/2022, 09/30/2022 Depression Screening 10/03/2024 Cholesterol Screening (Lipid Panel) 04/18/2025 Colorectal Cancer Screening: Colonoscopy 04/18/2025 Diabetes: Blood Sugar Control Test (HGBA1C) 04/18/2025 03/11/2023 HIV Screening 04/18/2025 Hepatitis C Screening 04/18/2025 Medicare Annual Wellness Visit 04/18/2025 Social Influencers of Health Screening 04/18/2025 Influenza Vaccine (#1) 2025 , 10/20/2023, 06/25/2022, Additional history exists Diabetes: Annual Urine Albumin-Creatinine Ratio (uACR) 11/30/2025 11/30/2024 Diabetes: Annual GFR (Glomerular Filtration Rate) 11/30/2025 11/30/2024 Hypertension/CHF/CAD Annual BMP Blood Test 11/30/2025 11/30/2024 DTaP,Tdap,and Td Vaccines (2 - Td or Tdap) 02/25/2032 02/24/2022 RSV Immunization Adult Patients (1 - 1-dose 75+ series) 2041 Zoster Vaccines Completed 06/11/2022, 02/24/2022 Pneumococcal Vaccine: 50+ Years Completed 09/24/2022, 05/18/2019 HIB Vaccines Aged Out No longer eligi ble based on patient's age to complete this topic HPV Vaccines Aged Out No longer eligi ble based on patient's age to complete this topic Hepatitis A Vaccines Aged Out No long er eligible based on patient's age to complete this topic IPV Vaccines Aged Out No longer eligi ble based on patient's age to complete this topic MMR Vaccines Aged Out No longer eligi ble based on patient's age to complete this topic Meningococcal ACWY Vaccine Aged Out N o longer eligible based on patient's age to complete this topic Meningococcal B Vaccine Aged Out No l onger eligible based on patient's age to complete this topic RSV Immunization Patients Under 20 months Aged Out No longer eligible based on patient's age to complete this topic Varicella Vaccines Aged Out No longer eligible based on patient's age to complete this topic Procedures Procedure Name Priority Date/Time Associated Diagnosis Comments XR LUMBAR SPINE 2-3 VIEWS STAT 04/17/2025 1:29 PM EDT from Last 3 Months Results * XR Lumbar Spine 2-3 Views (04/17/2025 1:29 PM EDT) Anatomical Region Laterality Modality Spine, L-spine Radiographic Andie ging 04/17/2025 1:38 PM EDT Impressions 04/17/2025 1:40 PM EDT Impression: 1. Postop changes at L5-S1 consistent with discectomy and fusion. 2. Normal vertebral alignment. Telecharan ASHLEY ([id number]) -------- FINAL REPORT -------- Dictated By: Venus Drew Dictated Date: 04/17/2025 13:38 ET Assigned Physician: Venus Drew Reviewed and Electronically Signed By: Venus Drew Signed Date: 04/17/2025 13:40 ET Workstation ID: [id number] Transcribed By: Self Edit Transcribed Date: 04/17/2025 13:38 ET Narrative 04/17/2025 1:40 PM EDT History: Low back pain since lifting injury 5 days ago. Lumbar spine surgery in 1999. Comparison: No previous imaging at this institution. Findings: AP, lateral and cone lateral views. There are 5 nonrib-bearing lumbar-type vertebra in normal alignment. The vertebral bodies maintain normal height and the disc spaces are preserved. The apophyseal joints are intact. Anterior vertebral endplate spurring is seen. Postop changes are noted at L5-S1, consistent with discectomy and fusion. There are bilateral transpedicular screws at L5 and S1, connected posteriorly by short vertical rods. The hardware is intact. The sacroiliac joints are well-maintained. Atherosclerotic vascular calcification is present. Procedure Note Venus Drew MD - 04/17/2025 History: Low back pain since lifting injury 5 days ago. Lumbar spinesurgery in 1999. Comparison: No previous imaging at this institution. Findings: AP, lateral and cone lateral views. There are 5 nonrib-bearing lumbar-type vertebra in normal alignment. Thevertebral bodies maintain normal height and the disc spaces are preserved.The apophyseal joints are intact. Anterior vertebral endplate spurring isseen. Postop changes are noted at L5-S1, consistent with discectomy and fusion.There are bilateral transpedicular screws at L5 and S1, connectedposteriorly by short vertical rods. The hardware is intact. The sacroiliac joints are well-maintained. Atherosclerotic vascularcalcification is present. IMPRESSION: Impression: 1. Postop changes at L5-S1 consistent with discectomy and fusion. 2. Normal vertebral alignment. Telerad DION ([id number]) -------- FINAL REPORT -------- Dictated By: Venus Drew Dictated Date: 04/17/2025 13:38 ET Assigned Physician: Venus Drew Reviewed and Electronically Signed By: Venus Drew Signed Date: 04/17/2025 13:40 ET Workstation ID: [id number] Transcribed By: Self Edit Transcribed Date: 04/17/2025 13:38 ET Pawel Ahmadi MD IMG XR PROCEDURES Final Result from Last 3 Months Insurance [facility] MEDICARE Member Subscriber Plan / Payer (Ef fective 2020-Present) Name:ORIN BENNETT Relation to Subscriber:Self Name:Orin Bennett Payer ID:[id number] Group ID:[id number] Type:Not on file Address: [place] [address] [address] [id number] Care Teams Shell Shop Supervisor Relationship Specialty Start Date End Date Christine De MD [address] [place] [id number] PCP - General Internal Medicine 04/17/25
--- OUTSIDE RECORDS SUMMARY | 2025-05-07 13:38 | XMS_ITS | Clinical Summary ---
Author Organization [facility] Address [address] [place] [address] Care Team Providers Care Forestry Conservation Worker Name Role Phone Unavailable Primary Care Provider [...] 2011 Fecal DNA 2011 Flexible Sigmoidoscopy 2011 Imm-Pneumococcal 50+ (1 of 1 - PCV) 2016 Imm-Zoster, Recombinant (1 of 2) 2016 Dental Perio Charting 02/17/2024 02/14/2023, 022 [id number] ( season) 2024 Alcohol and Drug Screen 10/03/2024 Depression Annual Screen 10/03/2024 Imm-Influenza (#1) 2025 07/10/2020, 07/03/2019 Hypertension Screening (#1) 06/27/2025 Tobacco Screening 06/28/2025 06/28/2024 Dental BW 06/30/2025 06/28/2024, 01/31, 08/17/2022 Dental Examination 06/30/2025 06/28/2024, 0 02/14/2023, 08/17/2022 Dental Prophy 06/30/2025 06/28/2024, 01/31, 08/17/2022 Diabetes Screening 11/30/2027 11/30/2024, 0 03/11/2023, [...] Recently Relevant to Health Maintenance Insurance [facility]
== END ==
LOC: HO.CARD 13:01
PROVIDERS: PCP Internal Medicine; Visit Provider Internal Medicine Cardiovascular Disease
DX: I35.9 Nonrheumatic aortic valve disorder, unspecified (principal)
CPT/HCPCS: 93306

== ENCOUNTER → 2025-05-07 13:04 | Outpatient (BNV) | payer OTHER, SELFPAY | PROVIDERS: PCP Internal Medicine; Visit Provider Internal Medicine | DX: I35.0 Nonrheumatic aortic (valve) stenosis (principal); I35.8 Other nonrheumatic aortic valve disorders | CPT/HCPCS: 93306 ==

== ENCOUNTER 2025-05-15 13:22 | Outpatient (AMB) | payer OTHER, SELFPAY ==
--- OUTSIDE RECORDS SUMMARY | 2025-05-12 23:59 | XMS_ITS | Continuity of Care Document ---
Author Organization [facility] Address [address] [place] [address]- Care Team Providers Care Volunteer Coordinator Name Role Phone Santino KRAUSE, Christine Gutierrez Primary Care Physician [phone] Encounter [facility] Date(s): 04/12/25 - 05/12/[address] [address]- Attending Physician: Rachel Cook Admitting Physician: Rachel Cook Referring Physician: AdmtrRachel Encounter Type: Triage Allergies, Adverse Reactions, Alerts Substance Criticality Severity Reaction Reaction Severity Status morphine Active penicillins 1 Active sulfa drugs Active Contrast Dye throat closes Act jose guadalupe Other Food Allergy 2 Active HYDROmorphone Hydrochloride Active traMADol Active Jardiance Active 1Tolerates ceftriaxone 2Red Meats Medications Aimovig SureClick Autoinjector 70 mg/mL subcutaneous solution = 70 mg, Subcutaneous Infusion, Every 28 days, # 1 kit, 5 Refills, Maintenance, 01/03/25 6:21:00 AM EDT, [facility], Partial fill upon patient request if the prescription is for a schedule II opioid drug., 183, cm, 12/27/24 12:47:00 EDT, Height, 108.5, kg, 10/01/24 18:00:00 EST, Dry Weight Start Date: 01/03/25 Status: Ordered Quantity: 1.0 Unit: kit Repeat number: 6 albuterol CFC free 90 mcg/inh inhalation aerosol [...] 9:24:00 AM EST, Route to Pharmacy Electronically, [facility] #[id number], Partial fill upon patient request if the [...] Refills, Maintenance, 10/02/24 3:05:00 PM EST, CRTablet, [facility] #[id number], Partial fill upon patient request if the prescription is for a schedule II opioid drug., 183, cm, 10/02/24 8:02:00 EST, Height, 108.5, kg, 10/01/24 18:00:00 EST, Dry Weight Start Date: 10/02/24 Status: Ordered Quantity: 30.0 Unit: tablet Repeat number: 9 DexCom G7 Olive Brine Tester DexCom G7 Olive Brine Tester, See Instructions, # 1 each, Refills 0, [...] and change sensor every 10 days E11.9, 12/26/24 4:00:00 PM EDT, replacingDexcom G6, please cancel all prescriptions for Dexcom G6, Supply, 183, cm, 12/26/24 15:25:00 EDT, Height, 108.5, kg, 10/01/24 18:00:00 EST, Dry Weight Start Date: 12/26/24 Status: Ordered Quantity: 9.0 Unit: each Repeat [...] - oral powder for reconstitution See Instructions, Split prep, drink half after 5pm evening before procedure, finish remaining half 6 hours prior to procedure time, # 4,000 mL, 0 Refills, Maintenance, 02/18/25 1:07:00 PM EDT, [facility], Partial fill upon patient request if the prescription is for a schedule II opioid drug., Split prep, drink half after 5pm evening before procedure, finish remaining half 6 hours prior to procedure time, 183, cm, 02/14/25 14:42:00 EDT, Height, 108.5, kg, 10/01/24 18:00:00 EST, Dry Weight Start Date: 02/18/25 Status: Ordered Quantity: 4000.0 Unit: mL Repeat number: 1 Golytely - oral powder for reconstitution See Instructions, Per instructions from GI., # 4,000 mL, 0 Refills, Maintenance, 08/28/24 6:45:00 PM EST, [facility] #[id number], Partial fill upon patient request if the prescription is for a schedule II opioid drug., Per instructions from GI., 183, cm, 08/28/24 15:05:00 EST, Height, 93, kg, 05/31/24 10:43:00 EDT, Dry Weight Start Date: 08/28/24 Status: Ordered Quantity: 4000.0 Unit: mL Repeat number: 1 Indications: Encounter for screening for malignant neoplasm of colon; Lantus Solostar Pen 100 units/mL subcutaneous solution = 30 units, Subcutaneous Injection, Daily at bedtime, rotate injection sites, # 15 mL, 11 Refills, Maintenance, 09/20/24 2:28:00 PM EST, Solution, [id number], increased dose, 183, cm,09/20/24 13:42:00 EST, Height, 110, kg, 08/29/24 14:11:00 EST, Dry Weight Start Date: 09/20/24 Status: Ordered Quantity: 15.0 Unit: mL Repeat number: 12 lisinopril 30 mg oral tablet 1 tablet = 30 mg, By Mouth, Daily, # 90 tablet, 3 Refills, Maintenance, 10/31/24 9:24:00 AM EST, Tablet, [facility] #[id number], Partial fill upon patient request if the [...] Refills, Maintenance, 12/11/24 1:04:00 PM EDT, Tablet, [facility] #[id number], Partial fill upon patient request if [...] Date: 06/21/17 Status: Ordered Repeat number: 1 Lymarivelv KwikPen 100 units/mL injectable solution = 6 units, Subcutaneous Injection, 3 times a day with meals, at the start of a meal or within 20 minutes after starting a meal, # 15 mL, 11 Refills, Maintenance, 09/20/24 5:00:00 PM EST, Solution, [id number], Partial fill upon patient request if the [...] day, # 360 tablet, 4 Refills, Maintenance, 04/15/25 4:23:00PM EDT, [facility]/pharmacy #[id number], 183, cm, 04/15/25 14:30:00 EDT, Height, 108.5, kg, 10/01/24 18:00:00 EST, Dry Weight Start Date: 04/15/25 Status: Ordered Quantity: 360.0 Unit: tablet Repeat [...] 3 Refills, Maintenance, 09/12/23 10:39:00 AM EST, [facility] #[id number], Partial fill upon patient request if the prescription is for a schedule II opioid drug., 182.8, cm, 09/07/23 10:08:00 EST, Height, 90, kg, 02/19/23 12:28:00 EDT, Dry Weight Start Date: 09/12/23 Status: Ordered Quantity: 60.0 Unit: capsule Repeat number: 4 Indications: Gastro-esophageal reflux disease without esophagitis; Pen Mora, 32 G x 4 mm BD Ultra [...] Date: 10/01/24 Status: Ordered Repeat number: 1 rosuvastatin 40 mg oral tablet TAKE 1 TABLET BY MOUTH DAILY Start Date: 04/12/25 Status: Ordered Repeat number: 1 tamsulosin 0.4 [...] 10/31/24 8:29:00 AM EST, Tablet, [id number], Partial fill upon patient request if the prescription is for a schedule II opioid drug., 183, cm, 10/26/24 13:31:00 EST, Height, 108.5, kg, 10/01/24 18:00:00 EST, Dry Weight Start Date: 10/31/24 Status: Ordered Quantity: 90.0 Unit: tablet Repeat number: 4 Zithromax 250 mg oral tablet 1 pack/packet, By Mouth, Once, take 2 tablets on day 1 and 1 tablet daily days 2-5, # 6 tablet, 0 Refills, Soft Stop, 03/11/25 4:12:00 PM EDT, Tablet, [facility]/pharmacy #[id number], Partial fill upon patient request if the prescription is for a schedule II opioid drug., 183, cm, 03/11/25 16:10:00 EDT, Height, 108.5, kg, 10/01/24 18:00:00 EST, Dry Weight Start Date: 03/11/25 Status: Ordered Quantity: 6.0 Unit: tablet Repeat number: 1 Indications: Cough, unspecified; Streptococcal pharyngitis; Problem List Condition Confirmation Course Effective Dates [...] (less than 100 in lifetime) entered on: 01/16/25 Sex Sex Representation Male (finding) Patient Care team information Care Team Personnel Name: Antelmo Andrade RN Position: [facility] RN Member Role: Primary Care Nurse Name: Capri Branch RN Position: S RN Member Role: Primary Care Nurse Name: Opal Barker RN Position: S RN Member Role: Primary Care Nurse Name: Shahnaz Lema RN Position: [facility] RN Member Role: Primary Care Nurse Name: Christine De MD Position: Reference Physician Member Role: PCP Address: [address] [place] [address] [place] Telecom: Name: Aren Hoskins MD Position: S Outreach Member Role: Lifetime Consulting Physician Address: [address] [place] [address] [address] [facility], [place] [address] [place] Telecom: Name: Wen Junior RN Position: [facility] RN Member Role: Primary Care Nurse Name: Estefani Gooden NP Position: S Outreach Member Role: Lifetime Consulting Physician Address: [address] [place] [address]- [place] Telecom: Name: Татьяна Lane LPN Position: [facility] RN Member Role: Primary Care Nurse Care Team Related Persons Name: BREANN ROTH Name: CASPER BENNETT Insurance Providers Guarantor name: [facility] [employer] [facility] Information #: 1 Payer: [facility] Payer Identifier: NA Member Number: [id number] Group Number: [id number] Subscriber Identifier: [id number] Relationship to Subscriber: self Coverage Type: Medicare Managed Care (Includes Medicare Advantage Plans) Coverage Verification Date: NA Telecom: NA Address: NA
--- NOTE | 2025-05-15 13:41 | MHC.OFFVIS ---
Vital Signs 05/15/25 13:42 Height 6 ft Weight 245 lb 9.519 oz BMI 33.3 BP 134/54 L Blood Pressure Location Rt brachial Position Sitting Pulse 82 Pulse Source Monitor Intake Visit Reasons: pre-op Dr. Son Ground Systems Engineer Required: No Accompanied by: Self / Same As Patient Allergies empagliflozin (From Jardiance) Allergy (Severe, Verified 04/01/25 16:05) Itching morphine (Morphine) Allergy (Severe, Verified 04/01/25 16:05) HIVES, THROAT CLOSES penicillin G (Penicillin G) Allergy (Severe, Verified 04/01/25 16:05) ANAPHYLAXIS Sulfa (Sulfonamide Antibiotics) (SULFA (SULFONAMIDE ANTIBIOTICS)) Allergy (Severe, Verified 04/01/25 16:05) ANAPHYLAXIS Gadolinium-Containing Contrast Medi (Gadolinium-Containing Agents) Allergy (Intermediate, Verified 04/01/25 16:05) Hives/Rash, dizziness, blue spots adhesive tape Adverse Reaction (Intermediate, Verified 04/01/25 16:05) Rash tramadol Adverse Reaction (Intermediate, Verified 04/01/25 16:05) Gastrointestinal Upset hydromorphone (From Dilaudid) Adverse Reaction (Verified 04/01/25 16:05) Anaphylaxis Medication List - Last Reconciled 05/15/25 by Babak Fierro NP acetaminophen 650 mg PO Q6H PRN albuterol sulfate 2.5 mg (3 mL) inhalation Q6H PRN 30 days albuterol sulfate 90 mcg/actuation (Ventolin HFA) 2 puffs inhalation QID PRN 30 days allopurinol 300 mg PO DAILY amlodipine 10 mg PO DAILY armodafinil (Nuvigil) 100 mg (2 x 50 mg) PO QAM 30 days aspirin 81 mg PO DAILY azelastine 2 sprays intranasal BID 30 days blood sugar diagnostic (FreeStyle Lite Strips) 4 times a day blood-glucose meter (FreeStyle Lite Meter kit) As directed 4x/day hnkpdqjigy-tackkibp-vokwsthgvl 160-9-4.8 mcg/actuation (Breztri Aerosphere) 2 inhalations inhalation BID 30 days carboxymethylcellulose sodium 0.5% (Refresh Tears) 1 drp ophthalmic (eye) BID cholecalciferol (vitamin D3) 50 mcg PO DAILY Dexcom G7 Sensor (blood-glucose sensor) As directed NS erenumab-aooe (Aimovig Autoinjector) mg subcut ezetimibe 10 mg PO DAILY flash glucose scanning reader (FreeStyle Eneida 2 [place]) As directed flash glucose sensor (FreeStyle Eneida 2 Sensor kit) As directed every 2 weeks fluoxetine 40 mg PO DAILY 90 days fluoxetine 20 mg PO DAILY insulin glargine (Lantus Solostar U-100 Insulin) 26 units subcut BEDTIME lancets (FreeStyle Lancets) 4 times a day lidocaine 5% (Lidoderm) 1 patch topical DAILY 30 days lisinopril 30 mg (3 x 10 mg) PO DAILY lorazepam 1 mg PO BID PRN melatonin 5 mg PO BEDTIME PRN 30 days metformin ER 1,000 mg PO BID metoprolol succinate ER 50 mg PO BID omeprazole 40 mg PO BID ondansetron 4 mg PO Q8H pen needle, diabetic As directed pioglitazone (Actos) 30 mg PO DAILY potassium citrate ER 1,620 mEq PO BID pregabalin 150 mg PO BID rosuvastatin 40 mg PO BEDTIME sodium chloride-aloe vera (Volin Saline Gel nasal spray) 1 spray intranasal BID 30 days tamsulosin 0.4 mg PO DAILY HPI Comments Details: This is a 60-year-old male patient coming in for a preop cardiac clearance for an upcoming back surgery. Patient with a history of hypertension, hyperlipidemia, coronary artery disease, sleep apnea on CPAP, and aortic stenosis. Patient notes that he had a stroke a year ago and had 2 TIAs since. Patient was at [facility] for these visits and states that his MRA neck was negative for any carotid stenosis. Today, patient reports feeling well overall without any cardiac symptoms of exertional chest pain, shortness of breath, palpitations, dizziness, orthopnea, PND, leg edema, presyncope, syncope. Patient states he is compliant with all his medications. [facility] Medical History Difficulty swallowing RSV (respiratory syncytial virus infection) Has daytime drowsiness Allergies History of anesthesia complications Family history of anesthesia complication Type 2 diabetes mellitus Murmur COPD (chronic obstructive pulmonary disease) Lumbar post-laminectomy syndrome Degenerative cervical spinal stenosis Neuropathic pain COVID-19 Chest pain Post herpetic neuralgia Pleuritic chest pain Obesity (BMI 30-39.9) Asthma Pneumonia SONY (obstructive sleep apnea) [id number] syndrome Reactive airway disease On beta mitra at home History of pneumonia Vitamin D deficiency Left nephrolithiasis Dyslipidemia Diabetic polyneuropathy associated with type 2 diabetes mellitus Hypogonadism Failed back syndrome of lumbar spine Arthritis Back pain GERD (gastroesophageal reflux disease) History of fatty infiltration of liver History of ADHD Depression Elevated cholesterol HTN (hypertension) CAD (coronary artery disease) History of 2019 novel coronavirus disease (COVID-19) Cervical radiculopathy Nephrolithiasis Surgical History S/P cardiac catheterization Gynecomastia History of elbow surgery Hx laparoscopic cholecystectomy History of carpal tunnel release Hx of shoulder surgery Hx of arthroscopic knee surgery History of esophagogastroduodenoscopy (EGD) H/O colonoscopy Hx of lumbar discectomy Hx of cardiac catheterization Family History Father Diabetes Hypertension Myocardial infarction Mother Diabetes Stroke Alzheimers disease Pacemaker Brother Diabetes Heart problem Myocardial infarction Sister Myocardial infarction Maternal Grandmother Myocardial infarction Unknown No problems noted. Social History Household Members: Spouse and Family Housing: Apartment Are you a primary director of career services to a significant other at home: No Do you presently have visiting nurse or other home services: No Alcohol intake: never Patient Tobacco Use Status: Never used Tobacco e-Cigarette/Vaping Use: Never Used Second Hand Smoke Exposure: No Advance Directives Date on File: 09/28/23 service: No Current occupational status: disabled Cognitive needs: No Hearing needs: No Vision needs: No Review of Systems Const Denies daytime sleepiness, Denies difficulty sleeping, Reports headache(s), Denies snoring, Denies stops breathing during sleep and Denies weakness ENT Reports headache(s) Card Denies chest pain, Denies rapid heart rate, Denies irregular heart rhythm, Denies claudication, Denies leg edema, Denies lightheadedness, Denies palpitations, Denies dyspnea, Denies dyspnea on exertion, Denies orthopnea, Denies paroxysmal nocturnal dyspnea and Denies slow heart rate Resp Denies cough, Denies dyspnea, Denies dyspnea on exertion and Denies snoring GI Reports no additional complaints, Denies hematochezia, Denies change in stool character and Denies dyspepsia Musc Denies abnormal gait, Denies muscle weakness and Denies numbness Neuro Denies abnormal gait, Reports headache(s), Denies numbness and Denies weakness Endo Denies palpitations Physical Exam Vital Signs: Last Vital Signs Pulse 82 05/15/25 13:42 BP 134/54 L 05/15/25 13:42 BMI result Body Mass Index 33.3 Const General: cooperative, healthy appearing, comfortable and no acute distress Orientation/consciousness: patient oriented x3 HEENT Head: Yes normal to inspection Neck Neck: Yes normal visual inspection, Yes trachea midline and Yes supple Chest Chest palpation & inspection: normal inspection of the chest Resp Effort & Inspection: normal respiratory effort Auscultation: clear to auscultation bilaterally, no crackles, no rales, no rhonchi and no wheezes Cardio Jugular venous distension: no JVD Palpation: normal PMI Rate: regular rate Rhythm: regular rhythm Heart sounds: S1 normal heart sound present, S2 normal heart sound present, no click, no gallops, Murmur heart sound present systolic and no rubs Peripheral pulses: Peripheral pulses 2+ throughout GI Inspection: Yes normal to inspection Palpation (GI): Soft to palpation Auscultation: normal bowel sounds Skin General skin exam: no rashes or lesions noted Neuro General: patient oriented x3 Extrem General: Yes normal to inspection, No no pedal edema and No calf tenderness Psych Appearance: grossly normal Mental Status: mental status grossly normal Speech and movement: Normal speech and movement present Office Procedures EKG Details: EKG today showed normal sinus rhythm, 82 beats per minute, [place], [place]. [address]-Dgvjjcwmxtzjhkcdm, Complete Assessment & Plan Assessment & Plan (1) CAD (coronary artery disease): Code(s): I25.10 - Atherosclerotic heart disease of chitimacha coronary artery without angina pectoris Category: Medical Qualifiers: Coronary Disease-Associated Artery/Lesion type: chitimacha artery [place] vs. transplanted heart: chitimacha heart Associated angina: without angina Qualified Code(s): I25.10 - Atherosclerotic heart disease of chitimacha coronary artery without angina pectoris Plan: 05/19/2023-patient underwent a cardiac catheterization with Dr. Leong at [facility] that showed nonobstructive disease in the mid LAD with 30% stenosis. 05/07/2025-patient's echo showed a normal LV systolic function with an ejection fraction at 63% with mild aortic valve stenosis. Clinically stable and without cardiac symptoms. Continue aspirin, high-dose statin, Zetia, and metoprolol therapy. Ideally, LDL goal less than 70. Stroke about a year ago with 2 TIAs since. MRA neck was negative for carotid stenosis. Patient states he has been doing well since and has been compliant with all his medications. (2) Aortic valve disorder: Code(s): I35.9 - Nonrheumatic aortic valve disorder, unspecified Category: Medical Plan: As above. (3) HTN (hypertension): Code(s): I10 - Essential (primary) hypertension Category: Medical Qualifiers: Hypertension type: essential hypertension Qualified Code(s): I10 - Essential (primary) hypertension Plan: Blood pressure today is well-controlled. Continue current regimen. Advised monitoring blood pressures at home with a goal less than 130/80. (4) Dyslipidemia: Code(s): E78.5 - Hyperlipidemia, unspecified Category: Medical Plan: As above. (5) Type 2 diabetes mellitus with hyperglycemia: Code(s): E11.65 - Type 2 diabetes mellitus with hyperglycemia Category: Medical Qualifiers: Diabetes mellitus intermission coordinator insulin use: with long-term use Qualified Code(s): E11.65 - Type 2 diabetes mellitus with hyperglycemia; Z79.4 - termite technician (current) use of insulin Plan: Continue aggressive diabetes management with an A1c goal less than 7%. (6) SONY (obstructive sleep apnea): Code(s): G47.33 - Obstructive sleep apnea (adult) (pediatric) Category: Medical Plan: Continue CPAP therapy. (7) Preop cardiovascular exam: Code(s): Z01.810 - Encounter for preprocedural cardiovascular examination Category: Medical Plan: EKG today is normal. Echo with no significant changes. And per cardiac catheterization in 2022 patient with nonobstructive coronary artery disease. Patient demonstrates functional capacity of greater than 4.0 Mets as patient reports he is able to climb a flight of stairs without symptoms. Therefore, patient can proceed with his upcoming back surgery with the consideration that patient is at an intermediate cardiac risk. Reviewed with Dr. Ocampo. Advised heart healthy diet, low-salt diet, regular exercise, med compliance, and aggressive management of vascular risk factors. Patient will follow-up in 3 months. In the interim, patient will call the office with any concerns or change in symptoms. This note was generated using voice recognition software. While every effort has been made to ensure accuracy and proper confectionery cooker, there may be occasional errors that could affect the content or meaning of the described symptoms. Orders: Orders AMB EKG-In Office Today Z01.810 - Encounter for preprocedural cardiovascular examination Coding Level of Care Code Est Pt Level 4 (27038) Complex EM visit Add On G2211 Diagnoses Coronary artery disease involving chitimacha coronary artery of chitimacha heart without angina pectoris I25.10 Coronary Disease-Associated Artery/Lesion type: chitimacha artery [place] vs. transplanted heart: chitimacha heart Associated angina: without angina Aortic valve disorder I35.9 Essential hypertension I10 Hypertension type: essential hypertension Dyslipidemia E78.5 Type 2 diabetes mellitus with hyperglycemia, with long-term current use of insulin E11.65; Z79.4 Diabetes mellitus intermission coordinator insulin use: with intermission coordinator use SONY (obstructive sleep apnea) G47.33 Preop cardiovascular exam Z01.810 CPT Codes EKG - CPT: 47242-Cfjjjcjcvvtpvnhsp, Complete ([id number]) Time Spent (min) 34 Comment Time spent in reviewing the chart, test results, assessment, counseling and documentation.
[2025-05-15 13:42] VITALS: BP 134/54; PULSE 82; BMI 33.3
--- OUTSIDE RECORDS SUMMARY | 2025-05-15 13:50 | XMS_ITS | Clinical Summary ---
Author Organization [facility] Address [address] [place] [address] Care Team Providers Care Animal Park Code Enforcement Officer Name Role Phone Unavailable Primary Care Provider [...] 2016 Dental Perio Charting 02/17/2024 02/14/2023, 022 [id number] ( season) 2024 Alcohol and Drug Screen [...] Most Recently Relevant to Health Maintenance Insurance [facility]
--- OUTSIDE RECORDS SUMMARY | 2025-05-15 13:50 | XMS_ITS | Patient Health Record ---
[facility] Organization [facility] Address [address] [place] [address] Care Team Providers Care Traffic Control Flagger Name Role Phone Darek Lani Primary Care Provider Unavailabl e Black, Margarita Unavailable [phone] Allergies Allergen (clinical drug ingredient) Drug/Non Drug [...] tive Ranitidine 1 tab Oral Active Umeclidinium [place] 62.5 MCG/INH 1 puff Inhalation Once a [...] primary osteoarthritis of the ankle and/or foot (576443213) Primary osteoarthritis, right ankle and foot (M19.071) Active confirmed Problem Polyneuropathy due to type 2 diabetes mellitus (584091183) Type 2 diabetes mellitus with diabetic polyneuropathy (E11.42) Active confirmed Problem Traumatic arthropathy of the ankle and/or foot (306868354) 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 Plan Of Treatment Pending Test Test Name Order Date [id number] NAIL, 6 OR MORE 07/10/2020 20410-MCGWNUL NAIL, 6 OR MORE 01/08/2021 07637-IXWZQCH NAIL, 6 OR MORE 04/13/2021 55196-LZZMUSH NAIL, 6 OR MORE 09/07/2021 90773-LDYRIWH NAIL, 6 OR MORE 12/17/2021 61256-XLFZLSL NAIL, 6 OR MORE 03/22/2022 15779-XFJFWPV NAIL, 6 OR MORE 06/24/2022 20601-UGGDBDY NAIL, 6 OR MORE 09/23/2022 92733-GSOEOMC NAIL, 6 OR MORE 12/30/2022 25879-Gxxk Destruction, 1-14 12/30/2022 52357-Tcjk Destruction, 1-14 09/23/2022 77830, J0702- INJECT or DRAIN, JOINT/BUR SA 12/17/2021 17036-QZNM SKIN LESIONS, 2 TO 4 06/24/20 26690-XBQS SKIN LESIONS, 2 TO 4 12/31/19 59854-WSNL SKIN LESIONS, 2 TO 4 09/23/20, U5343-IICWO/INJECT, JOINT/BURSA 0 11/12/2019, D9208-MSNZL/INJECT, JOINT/BURSA 0 03/22/2022 X ray : Ankle, right 3V 12/17/2021 Insurance Providers Payer Name Payer Address Payer Phone Subscriber Number Group Number Insured Name Patient Relationship to Insured Coverage Start Date Coverage End Date [facility] Claims [address] [place] [id number] Mohit Segovia Self - patient is the [...] gall bladder 11/07/2019 Hospitalization History Reason Date(Month/Year) [facility] 06/24
--- OUTSIDE RECORDS SUMMARY | 2025-05-15 13:50 | XMS_ITS | Clinical Summary ---
Author Organization [facility] Address [address] [place] [address] Phone Care Team Providers Care Supervisory Air Intercept Controller Name Role Phone Татьяна Haynes MD Primary [...] each day 2 Active Insulin Infusion Pump (Sigmascreening G6 Control-IQ Ins Pump) device Active metFORMIN [...] Office Visit [facility] [address] [address] Paz Dee ARNP [address] [id number] Health Maintenance Due Date Last Done Comments [...] PM EDT) Hemoglobin A1C 6.3(H) (4.0-5.6) % [facility] Comment: MONITORING: In known diabetic patients, hemoglobin A1c targets should be discussed with health care provider. DIAGNOSTIC USE: The [place] Diabetes Association (ADA) and the World Health [...] Supplement 1 Testing performed or reported by [facility], [place] [address] Terrell Carver MD, Housekeeper Nanny [facility]# [id number] Blood specimen (specimen) Venous blood / Unknown 03/11/2023 2:17 PM EDT 03/11/2023 2:18 PM EDT us Aren Hoskins MD LAB BLOOD ORDERABLES Angelita l Result [facility] from Last 3 Months or Most Recently Relevant to Health Maintenance Insurance [facility] ([id number]) [facility] ([id number]) Care Teams Supervisory Air Intercept Controller Relationship Specialty Start Date End Date Татьяна Haynes MD [address] [address] PCP - General Internal Medicine 01/25/23
--- OUTSIDE RECORDS SUMMARY | 2025-05-15 13:50 | XMS_ITS | Clinical Summary ---
Author Organization [facility] Address [address] [place] [address] Phone Care Team Providers Care Clinical Nutrition Manager Name Role Phone Christine De MD Primary Care Provider [phone] Allergies Active Allergy Reactions Criticality Noted Date [...] EDT - 04/17/2025 3:19 PM EDT Emergency [facility] Emergency [address] [place] [address] Pawel Ahmadi MD Acute right-sided [...] fusion. 2. Normal vertebral alignment. Telecharan ASHLEY ([id number]) -------- FINAL REPORT -------- Dictated By: Venus Drew Dictated Date: 04/17/2025 13:38 ET Assigned Physician: Venus Drew Reviewed and Electronically Signed By: Venus Drew Signed Date: 04/17/2025 13:40 ET Workstation ID: [id number] Transcribed By: Self Edit Transcribed Date: 04/17/2025 [...] fusion. 2. Normal vertebral alignment. Telerad DION ([id number]) -------- FINAL REPORT -------- Dictated By: Venus Drew Dictated Date: 04/17/2025 13:38 ET Assigned Physician: Venus Drew Reviewed and Electronically Signed By: Venus Drew Signed Date: 04/17/2025 13:40 ET Workstation ID: [id number] Transcribed By: Self Edit Transcribed Date: 04/17/2025 13:38 ET Pawel Ahmadi MD IMG XR PROCEDURES Final Result from Last 3 Months Insurance [facility] MEDICARE Member Subscriber Plan / Payer (Ef fective 2020-Present) Name:ORIN BENNETT Relation to Subscriber:Self Name:Orin Bennett Payer ID:[id number] Group ID:[id number] Type:Not on file Address: [place] [address] [place] [phone] Care Teams Clinical Nutrition Manager Relationship Specialty Start Date End Date Christine De MD [address] [place] [id number] PCP - General Internal Medicine 04/17/25
== END 2025-05-15 14:26 | disposition home or self-care (01) ==
LOC: HO.HCS 13:23
PROVIDERS: PCP Internal Medicine
DX: I25.10 Atherosclerotic heart disease of native coronary artery without angina pectoris (principal); I35.9 Nonrheumatic aortic valve disorder, unspecified; I10 Essential (primary) hypertension; E78.5 Hyperlipidemia, unspecified; E11.65 Type 2 diabetes mellitus with hyperglycemia; Z79.4 Long term (current) use of insulin; G47.33 Obstructive sleep apnea (adult) (pediatric); Z01.810 Encounter for preprocedural cardiovascular examination
CPT/HCPCS: 93010; 99214; G2211

== ENCOUNTER → 2025-05-15 13:22 | Outpatient (BNVA) | payer OTHER, SELFPAY | PROVIDERS: PCP Internal Medicine | DX: Z01.810 Encounter for preprocedural cardiovascular examination (principal); I10 Essential (primary) hypertension; E78.5 Hyperlipidemia, unspecified; I25.10 Atherosclerotic heart disease of native coronary artery without angina pectoris; I35.9 Nonrheumatic aortic valve disorder, unspecified; E11.65 Type 2 diabetes mellitus with hyperglycemia; Z79.4 Long term (current) use of insulin; G47.33 Obstructive sleep apnea (adult) (pediatric) | CPT/HCPCS: 93005; 99212 ==

== ENCOUNTER 2025-05-21 13:33 | Outpatient (REF) | payer OTHER, SELFPAY ==
--- NOTE | ~2025-05-21 | XR_ITS ---
EXAMINATION: XR LUMBOSACRAL SPINE CLINICAL INFORMATION: M51.26 - Other intervertebral disc displacement, lumbar region COMPARISON: Correlated to CT abdomen pelvis dated August 03, 2021. TECHNIQUE: AP and lateral views during flexion and extension position or neutral. FINDINGS: S-shaped curvature of the thoracolumbar spine. Multilevel marginal osteophyte formation and syndesmophyte formation and endplate sclerosis throughout the axial skeleton. Bilateral, trans pedicle screws at L5-S1 and intervertebral disc spacer placement at L5-S1. There is no gross malalignment. Flexion and/or extension position. Vascular calcifications, aorta. Vascular clips right upper quadrant abdomen likely cholecystectomy. XR/XR lumbar spine 4V min IMPRESSION: Multilevel thoracolumbar spondylosis. No acute fracture or gross listhesis. No gross instability. Status post posterior fusion L5-S1 as well as arthrodesis. Scoliosis, thoracolumbar spine. Atherosclerosis disease, aorta. Electronically signed by: Vikas Dove MD 05/21/2025 03:03 PM EDT
== END 2025-05-21 13:34 | disposition home or self-care (01) ==
LOC: HO.HOSX 13:33
PROVIDERS: PCP Internal Medicine; Referring Provider Physician Assistant; Visit Provider Physician Assistant
DX: M51.26 Other intervertebral disc displacement, lumbar region (principal); M79.604 Pain in right leg; E11.9 Type 2 diabetes mellitus without complications; Z98.1 Arthrodesis status
CPT/HCPCS: 72110; 99202

== ENCOUNTER 2025-05-21 13:33 | Outpatient (AMB) | payer OTHER, SELFPAY ==
--- OUTSIDE RECORDS SUMMARY | 2025-05-20 23:59 | XMS_ITS | Continuity of Care Document ---
Author Organization [facility] Address [address] [place] [address]- Care Team Providers Care Cytogenetic Technologist Name Role Phone Christine De MD Primary Care Physician [facility] [id number] Date(s): 04/15/25 - 05/20/[address] [address]- Attending Physician: Tiffanie Gomez Admitting Physician: Tiffanie Gomez Referring Physician: Tiffanie Gomez Encounter Type: Pre-Outpt Allergies, Adverse Reactions, Alerts Substance Criticality Severity Reaction Reaction Severity Status sulfa drugs Active Contrast Dye throat closes Act jose guadalupe Jardiance Active morphine Active penicillins 1 Active Other Food Allergy 2 Active HYDROmorphone [...] 9:24:00 AM EST, Route to Pharmacy Electronically, [facility] #[id number], Partial fill upon patient request if the [...] Refills, Maintenance, 10/02/24 3:05:00 PM EST, CRTablet, [facility] #[id number], Partial fill upon patient request if the prescription is for a schedule II opioid drug., 183, cm, 10/02/24 8:02:00 EST, Height, 108.5, kg, 10/01/24 18:00:00 EST, Dry Weight Start Date: 10/02/24 Status: Ordered Quantity: 30.0 Unit: tablet Repeat number: 9 DexCom G7 Chemical Plant Technical Director DexCom G7 Chemical Plant Technical Director, See Instructions, # 1 each, Refills 0, [...] 0 Refills, Maintenance, 02/18/25 1:07:00 PM EDT, [facility], Partial fill upon patient request [...] 0 Refills, Maintenance, 08/28/24 6:45:00 PM EST, [facility] #[id number], Partial fill upon patient request if the [...] Refills, Maintenance, 09/20/24 2:28:00 PM EST, Solution, [facility] #[id number], increased dose, 183, cm,09/20/24 13:42:00 EST, Height, 110, kg, 08/29/24 14:11:00 EST, Dry Weight Start Date: 09/20/24 Status: Ordered Quantity: 15.0 Unit: mL Repeat number: 12 lisinopril 30 mg oral tablet 1 tablet = 30 mg, By Mouth, Daily, # 90 tablet, 3 Refills, Maintenance, 10/31/24 9:24:00 AM EST, Tablet, [facility] #17687, Partial fill upon patient request if the [...] Maintenance, 12/11/24 1:04:00 PM EDT, Tablet, [facility]/pharmacy #[id number], Partial fill upon patient request [...] Date: 06/21/17 Status: Ordered Repeat number: 1 Rafaela Caldwell 100 units/mL injectable solution = 6 units, Subcutaneous Injection, 3 times a day with meals, at the start of a meal or within 20 minutes after starting a meal, # 15 mL, 11 Refills, Maintenance, 09/20/24 5:00:00 PM EST, Solution, [facility] #84276, Partial fill upon patient request if the [...] 4 Refills, Maintenance, 04/15/25 4:23:00PM EDT, [facility]/pharmacy #[id number], 183, cm, 04/15/25 14:30:00 EDT, Height, [...] 3 Refills, Maintenance, 09/12/23 10:39:00 AM EST, [facility] #10773, Partial fill upon patient request if the prescription is for a schedule II opioid drug., 182.8, cm, 09/07/23 10:08:00 EST, Height, 90, kg, 02/19/23 12:28:00 EDT, Dry Weight Start Date: 09/12/23 Status: Ordered Quantity: 60.0 Unit: capsule Repeat number: 4 Indications: Gastro-esophageal reflux disease without esophagitis; Pen [place], 32 G x 4 mm BD Ultra [...] Refills, Maintenance, 10/31/24 8:29:00 AM EST, Tablet, [facility] #[id number], Partial fill upon patient request if the [...] Stop, 03/11/25 4:12:00 PM EDT, Tablet, [facility]/pharmacy #[id number], Partial fill upon patient request [...] Reference Physician Member Role: PCP Address: [address] [place] [address]- [place] Tele[employer]: Name: Aren Hoskins MD Position: S Outreach Member Role: Lifetime Consulting Physician Address: [address] [facility] [place] [address]- [place] Tele[employer]: Name: Wen Junior RN Position: S RN Member Role: Primary Care Nurse Name: Estefani Gooden NP Position: S Outreach Member Role: Lifetime Consulting Physician Address: [address] [place] [address]- [place] Telecom: Name: Татьяна Lane LPN Position: S RN Member Role: Primary Care Nurse Care Team Related Persons Name: BREANN ROTH Name: CASPER BENNETT Insurance Providers Guarantor name: ORIN BENNETT Health Plan Information #: 1 Payer: [facility] Payer Identifier: NA Member Number: [id number] Group Number: [id number] Subscriber Identifier: [id number] Relationship to Subscriber: self Coverage Type: Medicare Managed Care (Includes Medicare Advantage Plans) Coverage Verification Date: NA Telecom: NA Address: NA
[2025-05-21 14:13] VITALS: BMI 29.8
--- NOTE | 2025-05-21 14:13 | A.SPINEOV_ITS ---
Vital Signs 05/21/25 14:13 Height 6 ft Weight 220 lb BMI 29.8 Intake Visit Reasons: L3-4 disc herniation Intake Note: Mr. Segovia is here today c/o low back pain. Machine Buffer Required: Yes Machine Buffer Services: Machine Buffer Present Machine Buffer Name: Suzie Farrar LM Allergies empagliflozin (From Jardiance) Allergy (Severe, Verified 05/21/25 14:14) Itching morphine (Morphine) Allergy (Severe, Verified 05/21/25 14:14) HIVES, THROAT CLOSES penicillin G (Penicillin G) Allergy (Severe, Verified 05/21/25 14:14) ANAPHYLAXIS Sulfa (Sulfonamide Antibiotics) (SULFA (SULFONAMIDE ANTIBIOTICS)) Allergy (Severe, Verified 05/21/25 14:14) ANAPHYLAXIS Gadolinium-Containing Contrast Medi (Gadolinium-Containing Agents) Allergy (Intermediate, Verified 05/21/25 14:14) Hives/Rash, dizziness, blue spots adhesive tape Adverse Reaction (Intermediate, Verified 05/21/25 14:14) Rash tramadol Adverse Reaction (Intermediate, Verified 05/21/25 14:14) Gastrointestinal Upset hydromorphone (From Dilaudid) Adverse Reaction (Verified 05/21/25 14:14) Anaphylaxis Physical Exam Vital Signs: BMI result Body Mass Index 29.8 Assessment & Plan Assessment & Plan (1) Lumbar disc herniation: Code(s): M51.26 - Other intervertebral disc displacement, lumbar region Category: Medical Plan Dear Kristopher, Thank you for referring Mr Segovia to our office today. He is a very nice 60-year-old gentleman who presents to the office today for evaluation of lumbar issues that he has been having for the last month or more. He reports that he has a history of lumbar fusion surgery done 34 years ago. It was a lumbar fusion done apparently at L5-S1. He spent 2 weeks in rehab after the surgery and reports being numb from the waist down for awhile but that recovered and he went on with his life and otherwise was doing okay until a month or more ago when he started to experience pain in the middle of his back that ultimately localize down to the lower lumbar region started radiating down into his right leg into his posterolateral calf. It is aggravated with standing and walking. It is there at nighttime. He has to constantly change positions. The pain has escalated to a level now where he is quite uncomfortable most of the day. He was not interested in cortisone injections. He has had them in the past with limited success. He has done physical therapy previously when he had his other back problem and it did not help much. He ultimately underwent an MRI that shows large herniated disc at L3-4 on the right and he was referred to us today for an evaluation. He take Tylenol and a leave as needed for the pain but it does not help much. PMH: He has an extensive medical history, he is a poorly-controlled diabetic, his last A1c in the chart he was 8.5 and that was in July of last year. I do not see anything more recently updated in the [email or web address] system. He was able to show me his glucose monitoring machine and it looks like in general he is running in the low 200s throughout most of the day with periods of even going higher into the 300s. He has a history of high cholesterol, kidney stones, fibromyalgia, sleep apnea. He had some kind of lung problem that apparently was related to COVID that ultimately resulted in some kind of lung infection and darlin t was treated by Dr. Saba and has healed up. He has autonomic dysreflexia, right rotator cuff repair that may need surgery. Constipation, hematuria, depression, NAFLD the, hydronephrosis, hypercalcemia, nonobstructive CAD GERD hypertension cervical radiculopathy Social hx: He does not smoke, drink or use any recreational drugs Medications: His reports his up to date list of medications is Lantus pioglitazone, rosuvastatin, Lyrica, aspirin, fluoxetine, metformin, lisinopril, omeprazole, allopurinol, amlodipine, loratadine, lorazepam, Zetia Allergies: Penicillin, sulfa, morphine, contrast dye and Dilaudid Physical exam: Awake alert oriented no acute distress, strength and reflexes normal, gait antalgic Imaging review: Lumbar MRI done at [facility] in April 2025 shows postsurgical changes at L5-S1, at L3-4 there is a large extruded disc fragment compressing the right L4 nerve root. Impression: 60-year-old diabetic, presents to the office for evaluation of 4-6 weeks of severe right lower extremity pain which I believe to be coming from the large herniated disc at L3-4 on the right side. He has a previous history of fusion at L5-S1. I will get a set of x-rays to look at his hardware. For the most part, he would otherwise be a good surgical candidate, but his diabetes right now is not in good control. He was showing me his blood sugars on his real-time monitoring system and it looks like he has been running in the 200s consistently, at times into the 300s. His last A1c here and the system was 8.6. With his numbers this elevated, Dr. Ames is not going to want operate as he does pose high risk for infection. If we can get those numbers down, then I think he would offer him surgery. Obviously, since he has only had the symptoms for 6 weeks and he has no weakness or reflex changes, we can take some time to do this safely for him. I will contact his primary care physician's office to see if they would like him to follow up with his front desk receptionist or if there some medication adjustment they think would be helpful. Once I have a chance to review everything with Dr. Ames I will call the patient and get back to him with a final plan. Thank you for allowing us to care for your patient. The total time spent with this visit with this patient was 45 minutes reviewing history, physical exam, lumbar imaging review, and implementation of treatment plan or further diagnostic testing Kt Ames MD,PhD [facility] Orders: Orders XR lumbar spine 4V min Today M51.26 - Other intervertebral disc displacement, lumbar region Coding Level of Care Code New Pt Level 4 (00430) Diagnoses Lumbar disc herniation M51.26
--- OUTSIDE RECORDS SUMMARY | 2025-05-21 14:49 | XMS_ITS | Clinical Summary ---
Author Organization [facility] Address [address] [place] [address] Phone Care Team Providers Care Programming Development Project Manager Name Role Phone Christine De MD Primary Care Provider [phone] Allergies Active Allergy Reactions Criticality Noted Date Comments Adhesive Tape-Silicones Rash 04/17/2025 Empagliflozin Itching 04/17/2025 Gadolinium-Containing Contrast Media Hives,Rash,Dizziness 04/17/2025 Blue spots Hydromorphone Anaphylaxis High 04/17/2025 Iodinated Contrast Media 04/17/2025 Morphine 04/17/2025 Penicillins Anaphylaxis High 04/17/2025 Sulfa (Sulfonamide Antibiotics) Anaphylaxis High 04/17/2025 Tramadol 04/17/2025 GI upset Medications methylPREDNISo lone (MedroL) 32 mg tablet Take 1 tablet (32 mg total) by mouth 1 (one) time each day for 4 days. Okay to change to other formulations as long as the milligram amounts are equivalent 4 tablet 5 04/21/20 25 lidocaine (LIDODERM) 5 % patchIndicatio ns:Acute right-sided low back pain with right-sided sciatica Apply 1 patch topically 1 (one) time each day. Remove & discard patch within 12 hours or as directed by . 30 each 5 05/17/20 25 acetaminophen (TYLENOL) 500 mg tablet Take [...] EDT - 04/17/2025 3:19 PM EDT Emergency [facility] Emergency [address] [place] [address] Pawel Ahmadi MD Acute right-sided [...] fusion. 2. Normal vertebral alignment. Telecharan ASHLEY ([id number]) -------- FINAL REPORT -------- Dictated By: Venus Drew Dictated Date: 04/17/2025 13:38 ET Assigned Physician: Venus Drew Reviewed and Electronically Signed By: Venus Drew Signed Date: 04/17/2025 13:40 ET Workstation ID: [id number] Transcribed By: Self Edit Transcribed Date: 04/17/2025 [...] fusion. 2. Normal vertebral alignment. Telerad DION ([id number]) -------- FINAL REPORT -------- Dictated By: Venus Drew Dictated Date: 04/17/2025 13:38 ET Assigned Physician: Venus Drew Reviewed and Electronically Signed By: Venus Drew Signed Date: 04/17/2025 13:40 ET Workstation ID: [id number] Transcribed By: Self Edit Transcribed Date: 04/17/2025 13:38 ET Pawel Ahmadi MD IMG XR PROCEDURES Final Result from Last 3 Months Insurance [employer] MED[employer] Member Subscriber Plan / Payer (Ef fective 2020-Present) Name:ORIN BENNETT Relation to Subscriber:Self Name:Orin Bennett Payer ID:[id number] Group ID:[id number] Type:Not on file Address: [place] [address] [place] [id number] Care Teams Programming Development Project Manager Relationship Specialty Start Date End Date Christine De MD [address] [place] [id number] PCP - General Internal Medicine 04/17/25
--- OUTSIDE RECORDS SUMMARY | 2025-05-21 14:49 | XMS_ITS | Clinical Summary ---
Author Organization [facility] Address [address] [place] [address] Care Team Providers Care Finisher Machine Name Role Phone Unavailable Primary Care Provider [...] 2016 Dental Perio Charting 02/17/2024 02/14/2023, 022 [id number] ( season) 2024 Alcohol and Drug Screen [...] Most Recently Relevant to Health Maintenance Insurance [facility]
--- OUTSIDE RECORDS SUMMARY | 2025-05-21 14:49 | XMS_ITS | Patient Health Record ---
Author Organization [facility] Address [address] [place] [address] Care Team Providers Care Sprinkler Driver Name Role Phone Darek Lani Primary Care Provider Unavailabl e Black, Margarita Unavailable [phone] Allergies Allergen (clinical drug ingredient) Drug/Non Drug [...] tive Ranitidine 1 tab Oral Active Umeclidinium [place]tree 62.5 MCG/INH 1 puff Inhalation Once a [...] primary osteoarthritis of the ankle and/or foot (094817541) Primary osteoarthritis, right ankle and foot (M19.071) Active confirmed Problem Polyneuropathy due to type 2 diabetes mellitus (447908398) Type 2 diabetes mellitus with diabetic polyneuropathy (E11.42) Active confirmed Problem Traumatic arthropathy of the ankle and/or foot (319039466) 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 Plan Of Treatment Pending Test Test Name Order Date [id number] NAIL, 6 OR MORE 07/10/2020 19614-[id number] NAIL, 6 OR MORE 01/08/2021 27681-FLMTSFT NAIL, 6 OR MORE 04/13/2021 85173-OLUBJRZ NAIL, 6 OR MORE 09/07/2021 42857-SHBLJHX NAIL, 6 OR MORE 12/17/2021 22951-KLQMXTN NAIL, 6 OR MORE 03/22/2022 77243-PFAJNSR NAIL, 6 OR MORE 06/24/2022 60062-HCVRLOP NAIL, 6 OR MORE 09/23/2022 57231-JUPVBHJ NAIL, 6 OR MORE 12/30/2022 38963-Kiyn Destruction, 1-14 12/30/2022 15627-Ziva Destruction, 1-14 09/23/2022 95990, J0702- INJECT or DRAIN, JOINT/BUR SA 12/17/2021 93898-DBJF SKIN LESIONS, 2 TO 4 06/24/20 33090-ZGHM SKIN LESIONS, 2 TO 4 12/31/19 39434-SOOV SKIN LESIONS, 2 TO 4 09/23/20, M3981-HCHJQ/INJECT, JOINT/BURSA 0 11/12/2019, B1231-BKTDK/INJECT, JOINT/BURSA 0 03/22/2022 X ray : Ankle, right 3V 12/17/2021 Insurance Providers Payer Name Payer Address Payer Phone Subscriber Number Group Number Insured Name Patient Relationship to Insured Coverage Start Date Coverage End Date [facility] Claims [address] [place] [id number] Mohit Segovia Self - patient is the [...] 11/07/2019 Hospitalization History Reason Date(Month/Year) [facility] 06/24
--- OUTSIDE RECORDS SUMMARY | 2025-05-21 14:49 | XMS_ITS | Clinical Summary ---
Author Organization [facility] Address [address] [place] [address] Phone Care Team Providers Care Tea Taster Name Role Phone Татьяна Haynes MD Primary [...] each day 2 Active Insulin Infusion Pump ([employer] G6 Control-IQ Ins Pump) device Active metFORMIN [...] Office Visit [facility] [address] [address] Paz Dee ARNP [address] [phone] Health Maintenance Due Date Last Done Comments [...] PM EDT) Hemoglobin A1C 6.3(H) (4.0-5.6) % [facility] Comment: MONITORING: In known diabetic patients, hemoglobin A1c targets should be discussed with health care provider. DIAGNOSTIC USE: The [place] [employer] (ADA) and the World Health [...] Supplement 1 Testing performed or reported by [facility], [place] [address] Terrell Carver MD, Metal Buildings Assembler [facility]# [id number] Blood specimen (specimen) Venous blood / Unknown 03/11/2023 2:17 PM EDT 03/11/2023 2:18 PM EDT us Aren Hosikns MD LAB BLOOD ORDERABLES Angelita l Result [facility] from Last 3 Months or Most Recently Relevant to Health Maintenance Insurance [facility] ([id number]) [facility] ([id number]) Care Teams Tea Taster Relationship Specialty Start Date End Date Татьяна Haynes MD [address] [address] PCP - General Internal Medicine 01/25/23
== END 2025-05-21 15:07 | disposition home or self-care (01) ==
LOC: HO.HNS 13:34
PROVIDERS: PCP Internal Medicine; Referring Provider Physician Assistant; Visit Provider Physician Assistant
DX: M51.26 Other intervertebral disc displacement, lumbar region (principal)
CPT/HCPCS: 99204

== ENCOUNTER → 2025-05-21 14:40 | Outpatient (BNV) | payer OTHER, SELFPAY | PROVIDERS: PCP Internal Medicine; Referring Provider Physician Assistant; Visit Provider Radiology Diagnostic Radiology | DX: M51.26 Other intervertebral disc displacement, lumbar region (principal) | CPT/HCPCS: 72110 ==

== ENCOUNTER 2025-06-14 08:45 | Outpatient (AMB) | payer OTHER, SELFPAY ==
--- NOTE | 2025-06-14 09:01 | MHC.PC.OV ---
Vital Signs 06/14/25 09:02 Weight 246 lb BP 120/74 Blood Pressure Location Rt brachial Position Sitting Respiration 16 Pulse 78 Pulse Source Pulse Oximeter Temp 98.5 F Temp Source Oral Pulse Oximetry (%) 97 Oxygen Delivery Method Room Air Intake Visit Reasons: preop surgery shoulder Intake Note: Pre op for back surgery. Had a1c done three weeks ago, it was 9.0 Sifter And Miller Required: No Allergies empagliflozin (From Jardiance) Allergy (Severe, Verified 06/14/25 09:04) Itching morphine (Morphine) Allergy (Severe, Verified 06/14/25 09:04) HIVES, THROAT CLOSES penicillin G (Penicillin G) Allergy (Severe, Verified 06/14/25 09:04) ANAPHYLAXIS Sulfa (Sulfonamide Antibiotics) (SULFA (SULFONAMIDE ANTIBIOTICS)) Allergy (Severe, Verified 06/14/25 09:04) ANAPHYLAXIS Gadolinium-Containing Contrast Medi (Gadolinium-Containing Agents) Allergy (Intermediate, Verified 06/14/25 09:04) Hives/Rash, dizziness, blue spots adhesive tape Adverse Reaction (Intermediate, Verified 06/14/25 09:04) Rash tramadol Adverse Reaction (Intermediate, Verified 06/14/25 09:04) Gastrointestinal Upset hydromorphone (From Dilaudid) Adverse Reaction (Verified 06/14/25 09:04) Anaphylaxis Tobacco use date assessed: 06/14/25 Dental Screening Dental Screen Date: 04/01/25 HPI HPI Comments History of Present Illness Details The patient is a 60 year old male with a past medical history of type 2 diabetes, hypertension, depression, gout, insomnia, sony/narcolepsy, lumbar ddd, asthma presenting for preoperative assessment DM: [place] [facility] [place]-A1C 9.0% that day. Was supposed to restart trulicity but has not and is not going to. Reports compliance with metformin twice daily. lantus 30 units, meal time insulin 8 units TID, and actos. He is not willing to start any additional meds at this time, did agree to increasing lantus to 40 units today. Discussed imperative to get A1C down especially if he wants to proceed with back surgery. CV: Follows with cardiology, C-recently seen and cleared from a cardiac perspective for surgery. On lisinopril, amlodipine, toprol, crestor. Had recent cardiac cath. Denies chest pain, denies exertional dyspnea. Rsp: Follows with pulmonary-Dr Saba. On dulera, azithromycin 3x/wk.stable breasthing MSK: He has a history of lumbar DDD. History of lumbar laminectomy. Has back pain, LE weakness, he is not entirely sure that he wants to proceed with surgery. [place] [facility] [place] GI: c/o left sided abdominal pain intermittently. Left upper mid quadrant/flank. Sometimes radiates to the left lower abdomen. No vomiting. Denies weight loss. He had CT abd/pelvis with iv ordered but he has had reactions to both oral and iv contrast in the past and so would like consideration of non contrast. Pain is not worsened by eating or moving. Holding/ pressing the left upper abdomen seems to relieve the discomfort. He has a history of lumbar surgery, left nephrolithiasis, lumbar DDD BH. Prozac was increased to 60mg daily. He endorses improved mood, more patience on the increased dose however is having significant erectile dysfunction and decreased libido on the medication SONY: continues cpap, modafinil. ROS see HPI PHYSICAL EXAM: GENERAL: Alert and oriented x 3. NAD EYES: EOMI. Anicteric. HENT: Moist mucous membranes. No scleral icterus. No cervical lymphadenopathy. LUNGS: Clear to auscultation bilaterally. CARDIOVASCULAR: Regular rate and rhythm. + murmur. No JVD. ABDOMEN: Soft, non-tender +bs EXTREMITIES: No edema. Non-tender. SKIN: No rashes or lesions. Warm. NEUROLOGIC: No focal neurological deficits. CN II-XII grossly intact PSYCHIATRIC: Cooperative. Appropriate mood and affect [facility] Medical History Difficulty swallowing RSV (respiratory syncytial virus infection) Has daytime drowsiness Allergies History of anesthesia complications Family history of anesthesia complication Type 2 diabetes mellitus Murmur COPD (chronic obstructive pulmonary disease) Lumbar post-laminectomy syndrome Degenerative cervical spinal stenosis Neuropathic pain COVID-19 Chest pain Post herpetic neuralgia Pleuritic chest pain Obesity (BMI 30-39.9) Asthma Pneumonia SONY (obstructive sleep apnea) [id number] syndrome Reactive airway disease On beta mitra at home History of pneumonia Vitamin D deficiency Left nephrolithiasis Dyslipidemia Diabetic polyneuropathy associated with type 2 diabetes mellitus Hypogonadism Failed back syndrome of lumbar spine Arthritis Back pain GERD (gastroesophageal reflux disease) History of fatty infiltration of liver History of ADHD Depression Elevated cholesterol HTN (hypertension) CAD (coronary artery disease) History of 2019 novel coronavirus disease (COVID-19) Cervical radiculopathy Nephrolithiasis Surgical History S/P cardiac catheterization Gynecomastia History of elbow surgery Hx laparoscopic cholecystectomy History of carpal tunnel release Hx of shoulder surgery Hx of arthroscopic knee surgery History of esophagogastroduodenoscopy (EGD) H/O colonoscopy Hx of lumbar discectomy Hx of cardiac catheterization Family History Father Diabetes Hypertension Myocardial infarction Mother Diabetes Stroke Alzheimers disease Pacemaker Brother Diabetes Heart problem Myocardial infarction Sister Myocardial infarction Maternal Grandmother Myocardial infarction Unknown No problems noted. Social History Household Members: Spouse and Family Housing: Apartment Are you a primary animal care assistant to a significant other at home: No Do you presently have visiting nurse or other home services: No Alcohol intake: never Patient Tobacco Use Status: Never used Tobacco e-Cigarette/Vaping Use: Never Used Second Hand Smoke Exposure: No Advance Directives Date on File: 09/28/23 service: No Current occupational status: disabled Cognitive needs: No Hearing needs: No Vision needs: No Questionnaire Thrive Questionnaire Date Thrive assessed: 10/12/24 I am a: Patient What is your living situation today?: I have a steady place to live Within the past 12 months, did the food you bought not last and you didn't have the money to get more?: Often true Within the past 12 months, did you worry whether your food would run out before you got money to buy more?: Often true Do you have trouble paying for medicines?: No Do you have trouble getting transportation to medical appointments?: No Do you have trouble paying your heating and electricity bill?: No Do you have trouble taking care of your child, family member or friend?: No Do you have trouble with day-to-day activities such as bathing, preparing meals, shopping, managing finances, etc.?: No Are you currently unemployed and looking for a job?: No Are you interested in more education?: No Please select the resources that you would like help with: Food Currently or been in a relationship where the following occur: I choose not to answer THRIVE Score: 2 AUDIT C Alcohol Use Questionnaire (AUDIT-C) 1. How often do you have a drink containing alcohol?: Never 3. How often do you have six or more drinks on one occasion?: Never Total Score: 0 OANH-7 AMB Questionnaire OANH-7 Date OANH - 7 assessed: 01/15/25 Source: Developed by Drs. Osvaldo Velasquez, Keyona Martinez, Luc Martinez and colleagues, with an educational jose from [employer]. Physical exam (Primary Care) Vital Signs: Last Vital Signs Temp 98.5 F 06/14/25 09:02 Pulse 78 06/14/25 09:02 Resp 16 06/14/25 09:02 BP 120/74 06/14/25 09:02 Pulse Ox 97 06/14/25 09:02 Oxygen Delivery Method Room Air 06/14/25 09:02 Tobacco/Smoking Status: Tobacco use Status Tobacco use date assessed 06/14/25 06/14/25 09:08 Patient Tobacco Use Status Never used Tobacco 06/14/25 09:03 e-Cigarette/Vaping Use Never Used 06/14/25 09:03 Thrive Assessment: Date of Thrive Assessment Date Thrive assessed 10/12/24 06/14/25 09:03 Currently or been in a relationship where the following occur: I choose not to answer Coding Level of Care Code Est Pt Level 4 (48528) Diagnoses Preop cardiovascular exam Z01.810 Type 2 diabetes mellitus with hyperglycemia, with long-term current use of insulin E11.65; Z79.4 Diabetes mellitus emt intermediate insulin use: with detention use Moderate episode of recurrent major depressive disorder F33.1 Active/Remission status: currently active Major depression episode severity: moderate Moderate persistent asthma without complication J45.40 Asthma severity: moderate Asthma persistence: persistent Asthma complication type: uncomplicated Sleep apnea, unspecified type G47.30 Sleep apnea type: unspecified type Assessment & Plan Assessment & Plan (1) Preop cardiovascular exam: Code(s): Z01.810 - Encounter for preprocedural cardiovascular examination Category: Medical (2) Type 2 diabetes mellitus with hyperglycemia: Code(s): E11.65 - Type 2 diabetes mellitus with hyperglycemia Category: Medical Qualifiers: Diabetes mellitus detention insulin use: with emt intermediate use Qualified Code(s): E11.65 - Type 2 diabetes mellitus with hyperglycemia; Z79.4 - nursing home (current) use of insulin (3) Recurrent major depression: Code(s): F33.9 - Major depressive disorder, recurrent, unspecified Category: Medical Qualifiers: Active/Remission status: currently active Major depression episode severity: moderate Qualified Code(s): F33.1 - Major depressive disorder, recurrent, moderate (4) Asthma: Code(s): J45.909 - Unspecified asthma, uncomplicated Category: Medical Qualifiers: Asthma severity: moderate Asthma persistence: persistent Asthma complication type: uncomplicated Qualified Code(s): J45.40 - Moderate persistent asthma, uncomplicated (5) Sleep apnea: Comment: uses CPAP Code(s): G47.30 - Sleep apnea, unspecified Category: Medical Qualifiers: Sleep apnea type: unspecified type Qualified Code(s): G47.30 - Sleep apnea, unspecified Plan 60 year old for follow up/preoperative assessment From a cardiopulmonary perspective patient is clear to undergo surgery without further testing. He had preop assessment with cardiology To optimize healing/recovery it would be preferable for patient to get A1C <8.0% He is hesitant to restart any GLP add any medications. He agreed to increase lantus to 40 units. discussed importance of lowering A1C He is following with endocrinology Medications: New sildenafil (Viagra) administer 30 minutes to 4 hours before activity 100 mg PO DAILY PRN 30 tabs 0RF sexual activity Changed From insulin glargine (Lantus Solostar U-100 Insulin) 30 units subcut BEDTIME To insulin glargine (Lantus Solostar U-100 Insulin) 40 units (0.4 mL) subcut BEDTIME 30 mL 3RF
[2025-06-14 09:02] VITALS: BP 120/74; PULSE 78; RESP 16; TEMP 36.9; O2SAT 97
--- OUTSIDE RECORDS SUMMARY | 2025-06-14 09:25 | XMS_ITS | Clinical Summary ---
Author Organization [facility] Address [address] [place] [address] Phone Care Team Providers Care Machine Precision Engraver Name Role Phone Татьяна Haynes MD Primary [...] each day 2 Active Insulin Infusion Pump ([employer] G6 Control-IQ Ins Pump) device Active metFORMIN [...] Visit [facility] [address] [address] Paz Dee ARNP [address] [phone] Health Maintenance Due Date Last Done Comments [...] PM EDT) Hemoglobin A1C 6.3(H) (4.0-5.6) % [facility] Comment: MONITORING: In known diabetic patients, hemoglobin A1c targets should be discussed with health care provider. DIAGNOSTIC USE: The [place] [employer] (ADA) and the World Health [...] Supplement 1 Testing performed or reported by [facility], [place] [address] Terrell Carver MD, Services Delivery Driver [facility]# [id number] Blood specimen (specimen) Venous blood / Unknown 03/11/2023 2:17 PM EDT 03/11/2023 2:18 PM EDT us Aren Hoskins MD LAB BLOOD ORDERABLES Angelita l Result [facility] from Last 3 Months or Most Recently Relevant to Health Maintenance Insurance [facility] ([id number]) [facility] ([id number]) Care Teams Machine Precision Engraver Relationship Specialty Start Date End Date Татьяна Haynes MD [address] [address] PCP - General Internal Medicine 01/25/23
--- OUTSIDE RECORDS SUMMARY | 2025-06-14 09:25 | XMS_ITS | Patient Health Record ---
Author Organization [facility] Address [address] [place] [address] Care Team Providers Care Manager Department Name Role Phone Lani Oswald Primary Care Provider Unavailabl e Black, Margarita Unavailable [phone] Allergies Allergen (clinical drug ingredient) Drug/Non Drug [...] tive Ranitidine 1 tab Oral Active Umeclidinium [place] 62.5 MCG/INH 1 puff Inhalation Once a [...] primary osteoarthritis of the ankle and/or foot (865318755) Primary osteoarthritis, right ankle and foot (M19.071) Active confirmed Problem Polyneuropathy due to type 2 diabetes mellitus (409344602) Type 2 diabetes mellitus with diabetic polyneuropathy (E11.42) Active confirmed Problem Traumatic arthropathy of the ankle and/or foot (002438544) 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 Plan Of Treatment Pending Test Test Name Order Date [id number] NAIL, 6 OR MORE 07/10/2020 [id number] NAIL, 6 OR MORE 01/08/2021 70746-[id number] NAIL, 6 OR MORE 04/13/2021 53356-XVKHBPL NAIL, 6 OR MORE 09/07/2021 09646-TMWUFDM NAIL, 6 OR MORE 12/17/2021 90012-YVLALBR NAIL, 6 OR MORE 03/22/2022 88178-ISALFBK NAIL, 6 OR MORE 06/24/2022 [id number] NAIL, 6 OR MORE 09/23/2022 84777-YVOAWKO NAIL, 6 OR MORE 12/30/2022 75439-Tjyc Destruction, 1-14 12/30/2022 52160-Cqbe Destruction, 1-14 09/23/2022 95105, J0702- INJECT or DRAIN, JOINT/BUR SA 12/17/2021 50403-NQCO SKIN LESIONS, 2 TO 4 06/24/20 12870-QZWT SKIN LESIONS, 2 TO 4 12/31/19 88031-JLWV SKIN LESIONS, 2 TO 4 09/23/20, U4239-ODJBF/INJECT, JOINT/BURSA 0 11/12/2019 34537, D1878-QLUIS/INJECT, JOINT/BURSA 0 03/22/2022 X ray : Ankle, right 3V 12/17/2021 Insurance Providers Payer Name Payer Address Payer Phone Subscriber Number Group Number Insured Name Patient Relationship to Insured Coverage Start Date Coverage End Date [facility] [employer] Claims [address] [place] [phone] [id number] Mohit Segovia Self - patient is the [...] gall bladder 11/07/2019 Hospitalization History Reason Date(Month/Year) [facility] 06/24
--- OUTSIDE RECORDS SUMMARY | 2025-06-14 09:25 | XMS_ITS | Clinical Summary ---
Author Organization [facility] Address [address] [place] [address] Phone Care Team Providers Care Editorial Project Manager Name Role Phone Christine De MD Primary Care Provider [phone] Allergies Active Allergy Reactions Criticality Noted Date Comments Adhesive Tape-Silicones Rash 04/17/2025 Empagliflozin Itching 04/17/2025 Gadolinium-Containing Contrast Media Hives,Rash,Dizziness 04/17/2025 Blue spots Hydromorphone Anaphylaxis High 04/17/2025 Iodinated Contrast Media 04/17/2025 Morphine 04/17/2025 Penicillins Anaphylaxis High 04/17/2025 Sulfa (Sulfonamide Antibiotics) Anaphylaxis High 04/17/2025 Tramadol 04/17/2025 GI upset Medications lidocaine (LIDODERM) 5 % patchIndication s:Acute right-sided low back pain with right-sided sciatica Apply 1 patch topically 1 (one) time each day. Remove & discard patch within 12 hours or as directed by . 30 each 05/17/20 25 Encounters Date Type Department Care Team Description 04/17/2025 11:02 AM EDT - 04/17/2025 3:19 PM EDT Emergency [facility] Emergency [address] [place] [address] Pawel Ahmadi MD Acute right-sided [...] Exam 1976 Hepatitis B Vaccines (1 of 3 - 19+ 3-dose series) 1985 Depression Screening 10/03/2024 Cholesterol Screening (Lipid Panel) 04/18/2025 Colorectal Cancer Screening: Colonoscopy 04/18/2025 Diabetes: Blood Sugar Control Test (HGBA1C) 04/18/2025 03/11/2023 HIV Screening 04/18/2025 Hepatitis C Screening 04/18/2025 Medicare Annual Wellness Visit 04/18/2025 Social Influencers of Health Screening 04/18/2025 COVID-19 Vaccine ( season) 2025 11/02/2022, 09/30/2022 Influenza Vaccine (#1) 2025 , 10/20/2023, 06/25/2022, [...] fusion. 2. Normal vertebral alignment. Telerad DION (20508) -------- FINAL REPORT -------- Dictated By: Venus Drew Dictated Date: 04/17/2025 13:38 ET Assigned Physician: Venus Derw Reviewed and Electronically Signed By: Venus Drew Signed Date: 04/17/2025 13:40 ET Workstation ID: [id number] Transcribed By: Self Edit Transcribed Date: 04/17/2025 [...] fusion. 2. Normal vertebral alignment. Telerad DION (99223) -------- FINAL REPORT -------- Dictated By: Venus Drew Dictated Date: 04/17/2025 13:38 ET Assigned Physician: Venus Drew Reviewed and Electronically Signed By: Venus Drew Signed Date: 04/17/2025 13:40 ET Workstation ID: [id number] Transcribed By: Self Edit Transcribed Date: 04/17/2025 13:38 ET Pawel Ahmadi MD IMG XR PROCEDURES Final Result from Last 3 Months Insurance [facility] Member Subscriber Plan / Payer (Ef fective 2020-Present) Name:ORIN BENNETT Relation to Subscriber:Self Name:Orin Bennett Payer ID:[id number] Group ID:[id number] Type:Not on file Address: [place] [address] [place] [phone] Care Teams Editorial Project Manager Relationship Specialty Start Date End Date Christine De MD [address] [place] [phone] PCP - General Internal Medicine 04/17/25
--- OUTSIDE RECORDS SUMMARY | 2025-06-14 09:26 | XMS_ITS | Clinical Summary ---
Author Organization [facility] Address [address] [place] [address] Care Team Providers Care Instrument Panel Assembler Name Role Phone Unavailable Primary Care Provider [...] 2016 Dental Perio Charting 02/17/2024 02/14/2023, 022 Alcohol and Drug Screen 10/03/2024 Depression Annual Screen 10/03/2024 [id number]-[id number]-93 ( season) 2025 Imm-Influenza (#1) 2025 07/10/2020, 07/03/2019 Hypertension Screening [...] Relevant to Health Maintenance Insurance [facility]
== END 2025-06-14 09:42 | disposition home or self-care (01) ==
LOC: HO.HMCFM 08:46
PROVIDERS: PCP Internal Medicine; Visit Provider Internal Medicine
DX: Z01.810 Encounter for preprocedural cardiovascular examination (principal); E11.65 Type 2 diabetes mellitus with hyperglycemia; Z79.4 Long term (current) use of insulin; F33.1 Major depressive disorder, recurrent, moderate; J45.40 Moderate persistent asthma, uncomplicated; G47.30 Sleep apnea, unspecified

== ENCOUNTER → 2025-06-14 08:45 | Outpatient (BNVA) | payer OTHER, SELFPAY | PROVIDERS: PCP Internal Medicine; Visit Provider Internal Medicine | DX: Z01.810 Encounter for preprocedural cardiovascular examination (principal); E11.65 Type 2 diabetes mellitus with hyperglycemia; F33.1 Major depressive disorder, recurrent, moderate; J45.40 Moderate persistent asthma, uncomplicated; G47.30 Sleep apnea, unspecified; Z79.4 Long term (current) use of insulin | CPT/HCPCS: 99212 ==

== ENCOUNTER 2025-07-02 14:20 | Outpatient (AMB) | payer OTHER, SELFPAY ==
--- NOTE | 2025-07-02 14:27 | MHC.PC.OV ---
Vital Signs 07/02/25 14:31 Height 6 ft Weight 243 lb 2 oz BMI 33.0 BP 110/74 Blood Pressure Location Rt brachial Position Sitting Respiration 14 Pulse 75 Pulse Source Pulse Oximeter Pulse Oximetry (%) 95 Oxygen Delivery Method Room Air Intake Visit Reasons: 3-4 month f/up 1/2 h in person please Intake Note: Follow up. Glucose 326 at appt time. Scuba Diving Instructor Required: No Allergies empagliflozin (From Jardiance) Allergy (Severe, Verified 07/02/25 14:27) Itching morphine (Morphine) Allergy (Severe, Verified 07/02/25 14:27) HIVES, THROAT CLOSES penicillin G (Penicillin G) Allergy (Severe, Verified 07/02/25 14:27) ANAPHYLAXIS Sulfa (Sulfonamide Antibiotics) (SULFA (SULFONAMIDE ANTIBIOTICS)) Allergy (Severe, Verified 07/02/25 14:27) ANAPHYLAXIS Gadolinium-Containing Contrast Medi (Gadolinium-Containing Agents) Allergy (Intermediate, Verified 07/02/25 14:27) Hives/Rash, dizziness, blue spots adhesive tape Adverse Reaction (Intermediate, Verified 07/02/25 14:27) Rash tramadol Adverse Reaction (Intermediate, Verified 07/02/25 14:27) Gastrointestinal Upset hydromorphone (From Dilaudid) Adverse Reaction (Verified 07/02/25 14:27) Anaphylaxis Tobacco use date assessed: 06/14/25 Dental Screening Dental Screen Date: 04/01/25 HPI HPI Comments History of Present Illness Details The patient is a 60 year old male with a past medical history of type 2 diabetes, hypertension, depression, gout, insomnia, sony/narcolepsy, lumbar ddd, asthma presenting for follow up DM: he was seen less than one month ago for follow up. Discussed uncontrolled diabetes. Was only willing at that time to increase lantus from 30 u to 40 units. Unfortunately he did not make the change and there has been no interval improvement in readings. Seeing endocrinology at [facility]-visit 06/05/25-A1C 9.0% that day-he was told to restart trulicity and did not. Reports compliance with metformin twice daily. lantus 30 units, meal time insulin 8 units TID, and actos. Today he has agreed to restart trulicity at 0.75mg weekly and increase the lantus to 40units as previously discussed. He plans to hold his meal time insulin. CV: Follows with cardiology, [facility]-recently seen and cleared from a cardiac perspective for surgery. On lisinopril, amlodipine, toprol, crestor. Had recent cardiac cath. Denies chest pain, denies exertional dyspnea. Rsp: Follows with pulmonary-Dr Saba. On dulera, azithromycin 3x/wk.stable breasthing MSK: He has a history of lumbar DDD. History of lumbar laminectomy. Has back pain, LE weakness, he is not entirely sure that he wants to proceed with surgery. Following [facility] spine. GI: c/o left sided abdominal pain intermittently. Left upper mid quadrant/flank. Sometimes radiates to the left lower abdomen. No vomiting. Denies weight loss. He had CT abd/pelvis with iv ordered but he has had reactions to both oral and iv contrast in the past and so would like consideration of non contrast. Pain is not worsened by eating or moving. Holding/ pressing the left upper abdomen seems to relieve the discomfort. He has a history of lumbar surgery, left nephrolithiasis, lumbar DDD BH. Prozac was increased to 60mg daily. He endorses improved mood, more patience on the increased dose however is having significant erectile dysfunction and decreased libido on the medication SONY: continues cpap, modafinil. ROS see HPI PHYSICAL EXAM: GENERAL: Alert and oriented x 3. NAD EYES: EOMI. Anicteric. HENT: Moist mucous membranes. No scleral icterus. No cervical lymphadenopathy. LUNGS: Clear to auscultation bilaterally. CARDIOVASCULAR: Regular rate and rhythm. + murmur. No JVD. ABDOMEN: Soft, non-tender +bs EXTREMITIES: No edema. Non-tender. SKIN: No rashes or lesions. Warm. NEUROLOGIC: No focal neurological deficits. CN II-XII grossly intact PSYCHIATRIC: Cooperative. Appropriate mood and affect [facility] Medical History Difficulty swallowing RSV (respiratory syncytial virus infection) Has daytime drowsiness Allergies History of anesthesia complications Family history of anesthesia complication Type 2 diabetes mellitus Murmur COPD (chronic obstructive pulmonary disease) Lumbar post-laminectomy syndrome Degenerative cervical spinal stenosis Neuropathic pain COVID-19 Chest pain Post herpetic neuralgia Pleuritic chest pain Obesity (BMI 30-39.9) Asthma Pneumonia SONY (obstructive sleep apnea) [id number] syndrome Reactive airway disease On beta mitra at home History of pneumonia Vitamin D deficiency Left nephrolithiasis Dyslipidemia Diabetic polyneuropathy associated with type 2 diabetes mellitus Hypogonadism Failed back syndrome of lumbar spine Arthritis Back pain GERD (gastroesophageal reflux disease) History of fatty infiltration of liver History of ADHD Depression Elevated cholesterol HTN (hypertension) CAD (coronary artery disease) History of 2019 novel coronavirus disease (COVID-19) Cervical radiculopathy Nephrolithiasis Surgical History S/P cardiac catheterization Gynecomastia History of elbow surgery Hx laparoscopic cholecystectomy History of carpal tunnel release Hx of shoulder surgery Hx of arthroscopic knee surgery History of esophagogastroduodenoscopy (EGD) H/O colonoscopy Hx of lumbar discectomy Hx of cardiac catheterization Family History Father Diabetes Hypertension Myocardial infarction Mother Diabetes Stroke Alzheimers disease Pacemaker Brother Diabetes Heart problem Myocardial infarction Sister Myocardial infarction Maternal Grandmother Myocardial infarction Unknown No problems noted. Social History Household Members: Spouse and Family Housing: Apartment Are you a primary critical care specialist to a significant other at home: No Do you presently have visiting nurse or other home services: No Alcohol intake: never Patient Tobacco Use Status: Never used Tobacco e-Cigarette/Vaping Use: Never Used Second Hand Smoke Exposure: No Advance Directives Date on File: 09/28/23 service: No Current occupational status: disabled Cognitive needs: No Hearing needs: No Vision needs: No Questionnaire Thrive Questionnaire Date Thrive assessed: 10/12/24 I am a: Patient What is your living situation today?: I have a steady place to live Within the past 12 months, did the food you bought not last and you didn't have the money to get more?: Often true Within the past 12 months, did you worry whether your food would run out before you got money to buy more?: Often true Do you have trouble paying for medicines?: No Do you have trouble getting transportation to medical appointments?: No Do you have trouble paying your heating and electricity bill?: No Do you have trouble taking care of your child, family member or friend?: No Do you have trouble with day-to-day activities such as bathing, preparing meals, shopping, managing finances, etc.?: No Are you currently unemployed and looking for a job?: No Are you interested in more education?: No Please select the resources that you would like help with: Food Currently or been in a relationship where the following occur: I choose not to answer THRIVE Score: 2 OANH-7 AMB Questionnaire OANH-7 Date OANH - 7 assessed: 01/15/25 Source: Developed by Drs. Osvaldo Velasquez, Keyona Martinez, Luc Martinez and colleagues, with an educational jose from [employer]. Physical exam (Primary Care) Vital Signs: Last Vital Signs Pulse 75 07/02/25 14:31 Resp 14 07/02/25 14:31 BP 110/74 07/02/25 14:31 Pulse Ox 95 07/02/25 14:31 Oxygen Delivery Method Room Air 07/02/25 14:31 BMI result Body Mass Index 33.0 Tobacco/Smoking Status: Tobacco use Status Tobacco use date assessed 06/14/25 07/02/25 14:30 Patient Tobacco Use Status Never used Tobacco 07/02/25 14:30 e-Cigarette/Vaping Use Never Used 07/02/25 14:30 Thrive Assessment: Date of Thrive Assessment Date Thrive assessed 10/12/24 07/02/25 14:30 Currently or been in a relationship where the following occur: I choose not to answer Coding Level of Care Code Est Pt Level 4 (70571) Diagnoses Type 2 diabetes mellitus with hyperglycemia, with long-term current use of insulin E11.65; Z79.4 Diabetes mellitus care home insulin use: with regional intermodal truck driver use Moderate episode of recurrent major depressive disorder F33.1 Active/Remission status: currently active Major depression episode severity: moderate Essential hypertension I10 Hypertension type: essential hypertension Coronary artery disease involving [place] coronary artery of [place] heart without angina pectoris I25.10 Coronary Disease-Associated Artery/Lesion type: [place] artery [place] vs. transplanted heart: [place] heart Associated angina: without angina Assessment & Plan Assessment & Plan (1) Type 2 diabetes mellitus with hyperglycemia: Code(s): E11.65 - Type 2 diabetes mellitus with hyperglycemia Category: Medical Qualifiers: Diabetes mellitus regional intermodal truck driver insulin use: with care home use Qualified Code(s): E11.65 - Type 2 diabetes mellitus with hyperglycemia; Z79.4 - alf (current) use of insulin (2) Recurrent major depression: Code(s): F33.9 - Major depressive disorder, recurrent, unspecified Category: Medical Qualifiers: Active/Remission status: currently active Major depression episode severity: moderate Qualified Code(s): F33.1 - Major depressive disorder, recurrent, moderate (3) HTN (hypertension): Code(s): I10 - Essential (primary) hypertension Category: Medical Qualifiers: Hypertension type: essential hypertension Qualified Code(s): I10 - Essential (primary) hypertension (4) CAD (coronary artery disease): Code(s): I25.10 - Atherosclerotic heart disease of [place] coronary artery without angina pectoris Category: Medical Qualifiers: Coronary Disease-Associated Artery/Lesion type: [place] artery [place] vs. transplanted heart: [place] heart Associated angina: without angina Qualified Code(s): I25.10 - Atherosclerotic heart disease of [place] coronary artery without angina pectoris Plan -Type 2 diabetes-Discussed imperative that he gets his glucose under control. He is increasing lantus to 40units, starting trulicity. Discussed he will almost certainly still need his meatime insulin but he can watch sugars temporarily off of it. Continue metformin, actos -CAD-blood pressure controlled. Follows cardiology utd -Depression-reports stable on current medications Medications: New dulaglutide (Trulicity) 0.75 mg (0.5 mL) subcut QWEEK 2 mL 0RF
[2025-07-02 14:31] VITALS: BP 110/74; PULSE 75; RESP 14; O2SAT 95; BMI 33.0
--- OUTSIDE RECORDS SUMMARY | 2025-07-02 15:44 | XMS_ITS | Patient Health Record ---
[facility] Address [address] [place] [address] Care Team Providers Care Speech Therapy Teacher Name Role Phone Darek Lani Primary Care Provider Unavailabl e Black, Margarita Unavailable [phone] Allergies Allergen (clinical drug ingredient) Drug/Non Drug [...] tive Ranitidine 1 tab Oral Active Umeclidinium [place] 62.5 MCG/INH 1 puff Inhalation Once a [...] primary osteoarthritis of the ankle and/or foot (591559568) Primary osteoarthritis, right ankle and foot (M19.071) Active confirmed Problem Polyneuropathy due to type 2 diabetes mellitus (377969220) Type 2 diabetes mellitus with diabetic polyneuropathy (E11.42) Active confirmed Problem Traumatic arthropathy of the ankle and/or foot (064441668) 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 Plan Of Treatment Pending Test Test Name Order Date [id number] NAIL, 6 OR MORE 07/10/2020 [id number]-AEXBWCS NAIL, 6 OR MORE 01/08/2021 74344-NHHSYPY NAIL, 6 OR MORE 04/13/2021 91822-TQOEXET NAIL, 6 OR MORE 09/07/2021 82701-DNALEXJ NAIL, 6 OR MORE 12/17/2021 40825-HIKXCBI NAIL, 6 OR MORE 03/22/2022 82949-EMDJEIS NAIL, 6 OR MORE 06/24/2022 [id number]-YJSBJMX NAIL, 6 OR MORE 09/23/2022 58001-WQZOXFY NAIL, 6 OR MORE 12/30/2022 87012-Pbln Destruction, 1-14 12/30/2022 15836-Uoxe Destruction, 1-14 09/23/2022 78736, J0702- INJECT or DRAIN, JOINT/BUR SA 12/17/2021 26122-YJZW SKIN LESIONS, 2 TO 4 06/24/20 28969-JWDF SKIN LESIONS, 2 TO 4 12/31/19 76924-EWBL SKIN LESIONS, 2 TO 4 09/23/20, E6431-ECPUV/INJECT, JOINT/BURSA 0 11/12/2019, H9827-ONMCA/INJECT, JOINT/BURSA 0 03/22/2022 X ray : Ankle, right 3V 12/17/2021 Insurance Providers Payer Name Payer Address Payer Phone Subscriber Number Group Number Insured Name Patient Relationship to Insured Coverage Start Date Coverage End Date [facility] [employer] Claims [address] [place] [id number] Mohit Segovia Self - patient is the [...] gall bladder 11/07/2019 Hospitalization History Reason Date(Month/Year) [facility] 06/24
--- OUTSIDE RECORDS SUMMARY | 2025-07-02 15:44 | XMS_ITS | Clinical Summary ---
Author Organization [facility] Address [address] [place] [address] Phone Care Team Providers Care Shank Rander Name Role Phone Татьяна Haynes MD Primary [...] each day 2 Active Insulin Infusion Pump (Plannify G6 Control-IQ Ins Pump) device Active metFORMIN [...] to type 2 diabetes mellitus 0 12/22/2021 Post-traumatic stress disorder 12/22/2021 Traumatic arthropathy of the [...] Office Visit [facility] [address] [phone] Paz Dee ARNP [address] [phone] Health Maintenance Due Date Last Done Comments [...] PM EDT) Hemoglobin A1C 6.3(H) (4.0-5.6) % [facility] Comment: MONITORING: In known diabetic patients, hemoglobin A1c targets should be discussed with health care provider. DIAGNOSTIC USE: The [place] Diabetes Association (ADA) and the World Health [...] 1 Testing performed or reported by [facility], a Service of [facility], [address] [place] [id number] Terrell Carver MD, Dental Equipment Repairer [facility]# [id number] Blood specimen (specimen) Venous blood / Unknown 03/11/2023 2:17 PM EDT 03/11/2023 2:18 PM EDT us Aren Hoskins MD LAB BLOOD ORDERABLES Angelita l Result [facility] from Last 3 Months or Most Recently Relevant to Health Maintenance Insurance [facility] ([id number]) [facility] ([id number]) Care Teams Shank Rander Relationship Specialty Start Date End Date Татьяна Haynes MD [address] [address] PCP - General Internal Medicine 01/25/23
--- OUTSIDE RECORDS SUMMARY | 2025-07-02 15:44 | XMS_ITS | Clinical Summary ---
Author Organization [facility] Address [address] [place] [address] Care Team Providers Care General Neurologist Name Role Phone Unavailable Primary Care Provider [...] Drug Screen 10/03/2024 Depression Annual Screen 10/03/2024 [id number] ( season) 2025 Imm-Influenza (#1) 2025 07/10/2020, [...] Most Recently Relevant to Health Maintenance Insurance [facility]
--- OUTSIDE RECORDS SUMMARY | 2025-07-02 15:44 | XMS_ITS | Clinical Summary ---
Author Organization [facility] Address [address] [place] [address] Phone Care Team Providers Care Operating System Programmer Name Role Phone Christine De MD Primary Care Provider [phone] Allergies Active Allergy Reactions Criticality Noted Date Comments Adhesive Tape-Silicones Rash 04/17/2025 Empagliflozin Itching 04/17/2025 Gadolinium-Containing Contrast Media Hives,Rash,Dizziness 04/17/2025 Blue spots Hydromorphone Anaphylaxis High 04/17/2025 Iodinated Contrast Media 04/17/2025 Morphine 04/17/2025 Penicillins Anaphylaxis High 04/17/2025 Sulfa (Sulfonamide Antibiotics) Anaphylaxis High 04/17/2025 Tramadol 04/17/2025 GI upset Encounters Date Type Department Care Team Description 04/17/2025 11:02 AM EDT - 04/17/2025 3:19 PM EDT Emergency [facility] Emergency [address] [place] [address] Pawel Ahmadi MD Acute right-sided [...] fusion. 2. Normal vertebral alignment. Telecharan ASHLEY ([id number]) -------- FINAL REPORT -------- Dictated By: Venus Drew Dictated Date: 04/17/2025 13:38 ET Assigned Physician: Venus Drew Reviewed and Electronically Signed By: Venus Drew Signed Date: 04/17/2025 13:40 ET Workstation ID: [id number] Transcribed By: Self Edit Transcribed Date: 04/17/2025 [...] and fusion. 2. Normal vertebral alignment. Telerad PA ([id number]) -------- FINAL REPORT -------- Dictated By: Venus Drew Dictated Date: 04/17/2025 13:38 ET Assigned Physician: Venus Drew Reviewed and Electronically Signed By: Venus Drew Signed Date: 04/17/2025 13:40 ET Workstation ID: [id number] Transcribed By: Self Edit Transcribed Date: 04/17/2025 13:38 ET Pawel Ahmadi MD IMG XR PROCEDURES Final Result from Last 3 Months Insurance [facility] MEDICARE Member Subscriber Plan / Payer (Ef fective 2020-Present) Name:ORIN BENNETT Relation to Subscriber:Self Name:Orin Bennett Payer ID:[id number] Group ID:[id number] Type:Not on file Address: [address] [facility] [place] [id number] Care Teams Operating System Programmer Relationship Specialty Start Date End Date Christine De MD [address] [place] [address] PCP - General Internal Medicine 04/17/25
== END 2025-07-02 14:47 | disposition home or self-care (01) ==
LOC: HO.HMCFM 14:20
PROVIDERS: PCP Internal Medicine; Visit Provider Internal Medicine
DX: E11.65 Type 2 diabetes mellitus with hyperglycemia (principal); Z79.4 Long term (current) use of insulin; F33.1 Major depressive disorder, recurrent, moderate; I10 Essential (primary) hypertension; I25.10 Atherosclerotic heart disease of native coronary artery without angina pectoris

== ENCOUNTER → 2025-07-02 14:20 | Outpatient (BNVA) | payer OTHER, SELFPAY | PROVIDERS: PCP Internal Medicine; Visit Provider Internal Medicine | DX: E11.65 Type 2 diabetes mellitus with hyperglycemia (principal); F33.1 Major depressive disorder, recurrent, moderate; I10 Essential (primary) hypertension; I25.10 Atherosclerotic heart disease of native coronary artery without angina pectoris; Z79.4 Long term (current) use of insulin; Z79.84 Long term (current) use of oral hypoglycemic drugs; Z79.899 Other long term (current) drug therapy | CPT/HCPCS: 99212 ==

== ENCOUNTER 2025-08-02 10:42 | Outpatient (AMB) | payer OTHER, SELFPAY ==
--- NOTE | 2025-08-02 10:47 | A.OFFPC_ITS ---
Vital Signs 08/02/25 10:48 Height 6 ft Weight 247 lb BMI 33.5 BP 102/58 L Blood Pressure Location Rt brachial Position Sitting Respiration 16 Pulse 83 Pulse Source Pulse Oximeter Pulse Oximetry (%) 98 Oxygen Delivery Method Room Air Intake Visit Reasons: f/up Intake Note: Follow up Composition Board Press Operator Required: No Allergies empagliflozin (From Jardiance) Allergy (Severe, Verified 08/02/25 10:50) Itching morphine (Morphine) Allergy (Severe, Verified 08/02/25 10:50) HIVES, THROAT CLOSES penicillin G (Penicillin G) Allergy (Severe, Verified 08/02/25 10:50) ANAPHYLAXIS Sulfa (Sulfonamide Antibiotics) (SULFA (SULFONAMIDE ANTIBIOTICS)) Allergy (Severe, Verified 08/02/25 10:50) ANAPHYLAXIS Gadolinium-Containing Contrast Medi (Gadolinium-Containing Agents) Allergy (Intermediate, Verified 08/02/25 10:50) Hives/Rash, dizziness, blue spots adhesive tape Adverse Reaction (Intermediate, Verified 08/02/25 10:50) Rash tramadol Adverse Reaction (Intermediate, Verified 08/02/25 10:50) Gastrointestinal Upset hydromorphone (From Dilaudid) Adverse Reaction (Verified 08/02/25 10:50) Anaphylaxis Tobacco use date assessed: 06/14/25 Dental Screening Dental Screen Date: 04/01/25 HPI HPI Comments History of Present Illness Details The patient is a 60 year old male with a past medical history of type 2 diabetes, hypertension, depression, gout, insomnia, sony/narcolepsy, lumbar ddd, asthma presenting for follow up DM: Recent compliance with medication regiment. Last A1C 9.0% GMI now 7.4%. On lantus 30 units, meal time insulin 10 units TID, and actos and just increased his trulicity to 1.5mg daily. CV: [place] [facility] [place] [facility] lisinopril, amlodipine, toprol, crestor. Had recent cardiac cath. Denies chest pain, denies exertional dyspnea. Rsp: Follows with pulmonary-Dr Saba. On dulera, azithromycin 3x/wk.stable MSK: He has a history of lumbar DDD. History of lumbar laminectomy. Has back pain, LE weakness, he is not entirely sure that he wants to proceed with surgery. [place] [facility] [place]. GI: c/o left sided abdominal pain intermittently. Left upper mid quadrant/flank. Sometimes radiates to the left lower abdomen. No vomiting. Denies weight loss. He had CT abd/pelvis with iv ordered but he has had reactions to both oral and iv contrast in the past and so would like consideration of non contrast. Pain is not worsened by eating or moving. Holding/ pressing the left upper abdomen seems to relieve the discomfort. He has a history of lumbar surgery, left nephrolithiasis, lumbar DDD BH. Currently on prozac 60mg daily. He endorses improved mood, more patience on the increased dose however is having significant erectile dysfunction and decreased libido on the medication. Today complaining of increased fibromyalgia, neuropathy. Will decrease prozac to 20mg daily, start cymbalta SONY: continues cpap, modafinil. ROS see HPI PHYSICAL EXAM: GENERAL: Alert and oriented x 3. NAD EYES: EOMI. Anicteric. HENT: Moist mucous membranes. No scleral icterus. No cervical lymphadenopathy. LUNGS: Clear to auscultation bilaterally. CARDIOVASCULAR: Regular rate and rhythm. + murmur. No JVD. ABDOMEN: Soft, non-tender +bs EXTREMITIES: No edema. Non-tender. SKIN: No rashes or lesions. Warm. NEUROLOGIC: No focal neurological deficits. CN II-XII grossly intact PSYCHIATRIC: Cooperative. Appropriate mood and affect [facility] Medical History Difficulty swallowing RSV (respiratory syncytial virus infection) Has daytime drowsiness Allergies History of anesthesia complications Family history of anesthesia complication Type 2 diabetes mellitus Murmur COPD (chronic obstructive pulmonary disease) Lumbar post-laminectomy syndrome Degenerative cervical spinal stenosis Neuropathic pain COVID-19 Chest pain Post herpetic neuralgia Pleuritic chest pain Obesity (BMI 30-39.9) Asthma Pneumonia SONY (obstructive sleep apnea) [id number] syndrome Reactive airway disease On beta mitra at home History of pneumonia Vitamin D deficiency Left nephrolithiasis Dyslipidemia Diabetic polyneuropathy associated with type 2 diabetes mellitus Hypogonadism Failed back syndrome of lumbar spine Arthritis Back pain GERD (gastroesophageal reflux disease) History of fatty infiltration of liver History of ADHD Depression Elevated cholesterol HTN (hypertension) CAD (coronary artery disease) History of 2019 novel coronavirus disease (COVID-19) Cervical radiculopathy Nephrolithiasis Surgical History S/P cardiac catheterization Gynecomastia History of elbow surgery Hx laparoscopic cholecystectomy History of carpal tunnel release Hx of shoulder surgery Hx of arthroscopic knee surgery History of esophagogastroduodenoscopy (EGD) H/O colonoscopy Hx of lumbar discectomy Hx of cardiac catheterization Family History Father Diabetes Hypertension Myocardial infarction Mother Diabetes Stroke Alzheimers disease Pacemaker Brother Diabetes Heart problem Myocardial infarction Sister Myocardial infarction Maternal Grandmother Myocardial infarction Unknown No problems noted. Social History Household Members: Spouse and Family Housing: Apartment Are you a primary overnight caregiver to a significant other at home: No Do you presently have visiting nurse or other home services: No Alcohol intake: never Patient Tobacco Use Status: Never used Tobacco e-Cigarette/Vaping Use: Never Used Second Hand Smoke Exposure: No Advance Directives Date on File: 09/28/23 service: No Current occupational status: disabled Cognitive needs: No Hearing needs: No Vision needs: No Questionnaire Thrive Questionnaire Date Thrive assessed: 10/12/24 I am a: Patient What is your living situation today?: I have a steady place to live Within the past 12 months, did the food you bought not last and you didn't have the money to get more?: Often true Within the past 12 months, did you worry whether your food would run out before you got money to buy more?: Often true Do you have trouble paying for medicines?: No Do you have trouble getting transportation to medical appointments?: No Do you have trouble paying your heating and electricity bill?: No Do you have trouble taking care of your child, family member or friend?: No Do you have trouble with day-to-day activities such as bathing, preparing meals, shopping, managing finances, etc.?: No Are you currently unemployed and looking for a job?: No Are you interested in more education?: No Please select the resources that you would like help with: Food Currently or been in a relationship where the following occur: I choose not to answer THRIVE Score: 2 OANH-7 AMB Questionnaire OANH-7 Date OANH - 7 assessed: 01/15/25 Source: Developed by Drs. Osvaldo Velasquez, Keyona Martinez, Luc Martinez and colleagues, with an educational jose from [employer]. Physical exam (Primary Care) Vital Signs: Last Vital Signs Pulse 83 08/02/25 10:48 Resp 16 08/02/25 10:48 BP 102/58 L 08/02/25 10:48 Pulse Ox 98 08/02/25 10:48 Oxygen Delivery Method Room Air 08/02/25 10:48 BMI result Body Mass Index 33.5 Tobacco/Smoking Status: Tobacco use Status Tobacco use date assessed 06/14/25 08/02/25 10:48 Patient Tobacco Use Status Never used Tobacco 08/02/25 10:48 e-Cigarette/Vaping Use Never Used 08/02/25 10:48 Thrive Assessment: Date of Thrive Assessment Date Thrive assessed 10/12/24 08/02/25 10:48 Currently or been in a relationship where the following occur: I choose not to answer Coding Level of Care Code Est Pt Level 4 (05679) Complex EM visit Add On G2211 Diagnoses Type 2 diabetes mellitus with hyperglycemia, with long-term current use of insulin E11.65; Z79.4 Diabetes mellitus superintendent terminal insulin use: with superintendent terminal use Essential hypertension I10 Hypertension type: essential hypertension Mood disorder F39 Assessment & Plan Assessment & Plan (1) Type 2 diabetes mellitus with hyperglycemia: Code(s): E11.65 - Type 2 diabetes mellitus with hyperglycemia Category: Medical Qualifiers: Diabetes mellitus superintendent terminal insulin use: with retirement use Qualified Code(s): E11.65 - Type 2 diabetes mellitus with hyperglycemia; Z79.4 - superintendent terminal (current) use of insulin (2) HTN (hypertension): Code(s): I10 - Essential (primary) hypertension Category: Medical Qualifiers: Hypertension type: essential hypertension Qualified Code(s): I10 - Essential (primary) hypertension (3) Mood disorder: Code(s): F39 - Unspecified mood [affective] disorder Category: Medical Plan Type 2 diabetes-improving glucose readings. CGM reviewed HTN controlled on current medications neuropathy/fibromyalgia -start cymbalta Depression-decrease prozac. start cymbalta Folllow up 3 months or sooner as needed Medications: New duloxetine Take 1 cap oral once daily for one week then increase to one cap oral twice daily Patient is to decrease his fluoxetine to 20mg total daily 30 mg PO BID 180 caps 3RF Changed From fluoxetine Take along with 40mg daily for a total of 60mg daily 20 mg PO DAILY 90 caps 3RF To fluoxetine 20 mg PO DAILY 90 caps 3RF From insulin glargine (Lantus Solostar U-100 Insulin) 40 units (0.4 mL) subcut BEDTIME 30 mL 3RF To insulin glargine (Lantus Solostar U-100 Insulin) 30 units (0.3 mL) subcut BEDTIME 30 mL 3RF Discontinued fluoxetine Take along with 20mg daily for a total of 60mg daily Discontinued Reason: Doctor's Order 40 mg PO DAILY 90 days 90 caps 2RF F32.9 - Major depressive disorder, single episode, unspecified
[2025-08-02 10:48] VITALS: BP 102/58; PULSE 83; RESP 16; O2SAT 98; BMI 33.5
--- OUTSIDE RECORDS SUMMARY | 2025-08-02 12:08 | XMS_ITS | Patient Health Record ---
Author Organization [facility] Address [address] [place] [address] Care Team Providers Care Parts Counter Specialist Name Role Phone Darek Lani Primary Care Provider Unavailabl e Black, Margarita Unavailable [phone] Allergies Allergen (clinical drug ingredient) Drug/Non Drug [...] tive Ranitidine 1 tab Oral Active Umeclidinium [place] 62.5 MCG/INH 1 puff Inhalation Once a [...] primary osteoarthritis of the ankle and/or foot (209912575) Primary osteoarthritis, right ankle and foot (M19.071) Active confirmed Problem Polyneuropathy due to type 2 diabetes mellitus (613290411) Type 2 diabetes mellitus with diabetic polyneuropathy (E11.42) Active confirmed Problem Traumatic arthropathy of the ankle and/or foot (513676578) 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 Plan Of Treatment Pending Test Test Name Order Date [id number] NAIL, 6 OR MORE 07/10/2020 [id number] NAIL, 6 OR MORE 01/08/2021 66189-EHKBFYC NAIL, 6 OR MORE 04/13/2021 62137-EBOMYFR NAIL, 6 OR MORE 09/07/2021 66865-PILFJSS NAIL, 6 OR MORE 12/17/2021 10444-HPEYYGB NAIL, 6 OR MORE 03/22/2022 [id number]-OOGQMVX NAIL, 6 OR MORE 06/24/2022 79368-IDYEQIP NAIL, 6 OR MORE 09/23/2022 34873-[id number] NAIL, 6 OR MORE 12/30/2022 61495-Ktlu Destruction, 1-14 12/30/2022 67385-Gzfi Destruction, 1-14 09/23/2022 96782, [id number]- INJECT or DRAIN, JOINT/BUR SA 12/17/2021 06303-SAXP SKIN LESIONS, 2 TO 4 06/24/20 55711-ZROX SKIN LESIONS, 2 TO 4 12/31/19 59882-ARKK SKIN LESIONS, 2 TO 4 09/23/20, [id number]-ZFCJF/INJECT, JOINT/BURSA 0 11/12/2019 70720, K8589-YTYFS/INJECT, JOINT/BURSA 0 03/22/2022 X ray : Ankle, right 3V 12/17/2021 Insurance Providers Payer Name Payer Address Payer Phone Subscriber Number Group Number Insured Name Patient Relationship to Insured Coverage Start Date Coverage End Date [facility] Claims [address] [place] [id number] Mohit Segovia Self - patient is the [...] 11/07/2019 Hospitalization History Reason Date(Month/Year) [facility] 06/24
== END 2025-08-02 11:12 | disposition home or self-care (01) ==
LOC: HO.HMCFM 10:43
PROVIDERS: PCP Internal Medicine; Visit Provider Internal Medicine
DX: E11.65 Type 2 diabetes mellitus with hyperglycemia (principal); Z79.4 Long term (current) use of insulin; I10 Essential (primary) hypertension; F39 Unspecified mood [affective] disorder

== ENCOUNTER → 2025-08-02 10:42 | Outpatient (BNVA) | payer OTHER, SELFPAY | PROVIDERS: PCP Internal Medicine; Visit Provider Internal Medicine | DX: E11.65 Type 2 diabetes mellitus with hyperglycemia (principal); E11.40 Type 2 diabetes mellitus with diabetic neuropathy, unspecified; I10 Essential (primary) hypertension; M79.7 Fibromyalgia; F32.A Depression, unspecified; G47.33 Obstructive sleep apnea (adult) (pediatric); Z79.4 Long term (current) use of insulin; Z79.899 Other long term (current) drug therapy; Z99.89 Dependence on other enabling machines and devices | CPT/HCPCS: 99212 ==

== ENCOUNTER 2025-08-13 14:24 | Outpatient (AMB) | payer OTHER, SELFPAY ==
--- NOTE | 2025-08-13 14:32 | A.OFFVIS_ITS ---
Vital Signs 08/13/25 14:33 Height 6 ft Weight 245 lb 2.464 oz BMI 33.2 BP 130/64 Blood Pressure Location Lt brachial Position Sitting Pulse 62 Pulse Source Pulse Oximeter Intake Visit Reasons: 3mth f/up Supervisor Photoengraving Required: No Accompanied by: Self / Same As Patient Allergies empagliflozin (From Jardiance) Allergy (Severe, Verified 08/13/25 14:36) Itching morphine (Morphine) Allergy (Severe, Verified 08/13/25 14:36) HIVES, THROAT CLOSES penicillin G (Penicillin G) Allergy (Severe, Verified 08/13/25 14:36) ANAPHYLAXIS Sulfa (Sulfonamide Antibiotics) (SULFA (SULFONAMIDE ANTIBIOTICS)) Allergy (Severe, Verified 08/13/25 14:36) ANAPHYLAXIS Gadolinium-Containing Contrast Medi (Gadolinium-Containing Agents) Allergy (Intermediate, Verified 08/13/25 14:36) Hives/Rash, dizziness, blue spots adhesive tape Adverse Reaction (Intermediate, Verified 08/13/25 14:36) Rash tramadol Adverse Reaction (Intermediate, Verified 08/13/25 14:36) Gastrointestinal Upset hydromorphone (From Dilaudid) Adverse Reaction (Verified 08/13/25 14:36) Anaphylaxis Medication List - Last Reconciled 08/13/25 by Babak Fierro NP acetaminophen 650 mg PO Q6H PRN albuterol sulfate 2.5 mg (3 mL) inhalation Q6H PRN 30 days albuterol sulfate 90 mcg/actuation (Ventolin HFA) 2 puffs inhalation QID PRN 30 days allopurinol 300 mg PO DAILY amlodipine 10 mg PO DAILY armodafinil (Nuvigil) 100 mg (2 x 50 mg) PO QAM 30 days aspirin 81 mg PO DAILY azelastine 2 sprays intranasal BID 30 days blood sugar diagnostic (FreeStyle Lite Strips) 4 times a day blood-glucose meter (FreeStyle Lite Meter kit) As directed 4x/day hzdxkllnwb-cykuchpn-dwdjccvuxf 160-9-4.8 mcg/actuation (Breztri Aerosphere) 2 inhalations inhalation BID 30 days carboxymethylcellulose sodium 0.5% (Refresh Tears) 1 drp ophthalmic (eye) BID Dexcom G7 Sensor (blood-glucose sensor) As directed NS dulaglutide (Trulicity) 1.5 mg subcut QWEEK duloxetine 30 mg PO BID erenumab-aooe (Aimovig Autoinjector) mg subcut ezetimibe 10 mg PO DAILY famotidine (Heartburn Relief (famotidine)) 10 mg PO BID flash glucose scanning reader (FreeStyle [place]ida 2 [place]) As directed flash glucose sensor (FreeStyle Eneida 2 Sensor kit) As directed every 2 weeks fluoxetine 60 mg PO DAILY insulin glargine (Lantus Solostar U-100 Insulin) 30 units (0.3 mL) subcut BEDTIME lancets (FreeStyle Lancets) 4 times a day lidocaine 5% (Lidoderm) 1 patch topical DAILY 30 days lisinopril 30 mg (3 x 10 mg) PO DAILY lorazepam 1 mg PO BID PRN melatonin 5 mg PO BEDTIME PRN 30 days metoprolol succinate ER 50 mg PO BID omeprazole 40 mg PO BID ondansetron 4 mg PO Q8H pen needle, diabetic As directed pioglitazone 30 mg PO DAILY pregabalin 150 mg PO BID rosuvastatin 40 mg PO DAILY sildenafil 100 mg PO DAILY PRN sodium chloride-aloe vera ([place] Saline Gel nasal spray) 1 spray intranasal BID 30 days tamsulosin 0.4 mg PO DAILY HPI Comments Details: This is a 60-year-old male patient coming in for a follow-up visit. Patient with a history of hypertension, hyperlipidemia, coronary artery disease, sleep apnea on CPAP, and aortic stenosis. Patient also with a history of CVA in 2023 and 2 TIAs since. Patient at the time was at [facility] for these visit and had an MRA of the neck which was negative for carotid stenosis. Today patient reports that he had an ER visit about 2 weeks ago where he had left-sided facial discomfort and tingling and was discharged home with no acute findings. Today, patient is reporting intermittent palpitations and shortness of breath with this. Patient is denying any exertional chest pain, dizziness, orthopnea, PND, leg edema, presyncope or syncope. Patient is reporting compliance with all his medications. Patient was last seen in the office for a preop clearance however patient states that this was never done as he and the anesthesiologist have decided to hold on his disc herniation repair due to his risk factors. [facility] Medical History Difficulty swallowing RSV (respiratory syncytial virus infection) Has daytime drowsiness Allergies History of anesthesia complications Family history of anesthesia complication Type 2 diabetes mellitus Murmur COPD (chronic obstructive pulmonary disease) Lumbar post-laminectomy syndrome Degenerative cervical spinal stenosis Neuropathic pain COVID-19 Chest pain Post herpetic neuralgia Pleuritic chest pain Obesity (BMI 30-39.9) Asthma Pneumonia SONY (obstructive sleep apnea) Pfgy-BEDCS-94 syndrome Reactive airway disease On beta mitra at home History of pneumonia Vitamin D deficiency Left nephrolithiasis Dyslipidemia Diabetic polyneuropathy associated with type 2 diabetes mellitus Hypogonadism Failed back syndrome of lumbar spine Arthritis Back pain GERD (gastroesophageal reflux disease) History of fatty infiltration of liver History of ADHD Depression Elevated cholesterol HTN (hypertension) CAD (coronary artery disease) History of 2019 novel coronavirus disease (COVID-19) Cervical radiculopathy Nephrolithiasis Surgical History S/P cardiac catheterization Gynecomastia History of elbow surgery Hx laparoscopic cholecystectomy History of carpal tunnel release Hx of shoulder surgery Hx of arthroscopic knee surgery History of esophagogastroduodenoscopy (EGD) H/O colonoscopy Hx of lumbar discectomy Hx of cardiac catheterization Family History Father Diabetes Hypertension Myocardial infarction Mother Diabetes Stroke Alzheimers disease Pacemaker Brother Diabetes Heart problem Myocardial infarction Sister Myocardial infarction Maternal Grandmother Myocardial infarction Unknown No problems noted. Social History Household Members: Spouse and Family Housing: Apartment Are you a primary rn progressive care to a significant other at home: No Do you presently have visiting nurse or other home services: No Alcohol intake: never Patient Tobacco Use Status: Never used Tobacco e-Cigarette/Vaping Use: Never Used Second Hand Smoke Exposure: No Advance Directives Date on File: 09/28/23 service: No Current occupational status: disabled Cognitive needs: No Hearing needs: No Vision needs: No Review of Systems Const Denies daytime sleepiness, Denies difficulty sleeping, Denies snoring, Denies stops breathing during sleep and Denies weakness Card Denies chest pain, Denies rapid heart rate, Denies irregular heart rhythm, D enies claudication, Denies leg edema, Denies lightheadedness, Denies palpitations, Reports dyspnea, Denies dyspnea on exertion, Reports orthopnea, Denies paroxysmal nocturnal dyspnea and Denies slow heart rate Resp Denies cough, Reports dyspnea, Denies dyspnea on exertion and Denies snoring GI Reports no additional complaints, Denies hematochezia, Denies change in stool character and Denies dyspepsia Musc Denies abnormal gait, Denies muscle weakness and Denies numbness Neuro Denies abnormal gait, Denies numbness and Denies weakness Endo Denies palpitations Physical Exam Vital Signs: Last Vital Signs Pulse 62 08/13/25 14:33 BP 130/64 08/13/25 14:33 BMI result Body Mass Index 33.2 Const General: cooperative, healthy appearing, comfortable and no acute distress Orientation/consciousness: patient oriented x3 HEENT Head: Yes normal to inspection Neck Neck: Yes normal visual inspection, Yes trachea midline and Yes supple Chest Chest palpation & inspection: normal inspection of the chest Resp Effort & Inspection: normal respiratory effort Auscultation: clear to auscultation bilaterally, no crackles, no rales, no rhonchi and no wheezes Cardio Jugular venous distension: no JVD Palpation: normal PMI Rate: regular rate Rhythm: regular rhythm Heart sounds: S1 normal heart sound present, S2 normal heart sound present, no click, no gallops, Murmur heart sound present systolic and no rubs Peripheral pulses: Peripheral pulses 2+ throughout GI Inspection: Yes normal to inspection Palpation (GI): Soft to palpation Auscultation: normal bowel sounds Skin General skin exam: no rashes or lesions noted Neuro General: patient oriented x3 Extrem General: Yes normal to inspection, No no pedal edema and No calf tenderness Psych Appearance: grossly normal Mental Status: mental status grossly normal Speech and movement: Normal speech and movement present Assessment & Plan Assessment & Plan (1) CAD (coronary artery disease): Code(s): I25.10 - Atherosclerotic heart disease of [place] coronary artery without angina pectoris Category: Medical Qualifiers: Coronary Disease-Associated Artery/Lesion type: [place] artery [place] vs. transplanted heart: [place] heart Associated angina: without angina Qualified Code(s): I25.10 - Atherosclerotic heart disease of [place] coronary artery without angina pectoris Plan: 05/19/2023-patient underwent a cardiac catheterization with Dr. Leong at [facility] that showed nonobstructive disease in the mid LAD with 30% stenosis. 05/07/2025-patient's echo showed a normal LV systolic function with an ejection fraction at 63% with mild aortic valve stenosis. Clinically stable and without cardiac symptoms. Continue aspirin, high-dose statin, Zetia, and metoprolol therapy. Ideally, LDL goal less than 70. (2) Palpitations: Code(s): R00.2 - Palpitations Category: Medical Plan: Stroke about a year ago with 2 TIAs since. MRA neck was negative for carotid stenosis. Continue aspirin therapy. Given his reports of ongoing palpitations with shortness of breath, we will get a NOÉ to evaluate for a PFO and a cardiac event monitor to assess for potential arrhythmias specifically AFib. Discussed with the patient in detail about the indications for these testings given his history of stroke and TIAs. Patient agreeable of the plan. Further interventions based on findings. (3) Aortic valve disorder: Code(s): I35.9 - Nonrheumatic aortic valve disorder, unspecified Category: Medical Plan: As above. (4) HTN (hypertension): Code(s): I10 - Essential (primary) hypertension Category: Medical Qualifiers: Hypertension type: essential hypertension Qualified Code(s): I10 - Essential (primary) hypertension Plan: Blood pressure today is well-controlled. Continue current regimen. Advised monitoring blood pressures at home with a goal less than 130/80. (5) Dyslipidemia: Code(s): E78.5 - Hyperlipidemia, unspecified Category: Medical Plan: As above. (6) Type 2 diabetes mellitus with hyperglycemia: Code(s): E11.65 - Type 2 diabetes mellitus with hyperglycemia Category: Medical Qualifiers: Diabetes mellitus predatory animal exterminator insulin use: with predatory animal exterminator use Qualified Code(s): E11.65 - Type 2 diabetes mellitus with hyperglycemia; Z79.4 - terminal system operator (current) use of insulin Plan: Continue aggressive diabetes management with an A1c goal less than 7%. (7) SONY (obstructive sleep apnea): Code(s): G47.33 - Obstructive sleep apnea (adult) (pediatric) Category: Medical Plan: Continue CPAP therapy. Advised on heart healthy diet, regular exercise, med compliance, losing weight, and aggressive management of vascular risk factors. Follow up after these tests. In the interim, patient will call the office with any concerns or change in symptoms. This note was generated using voice recognition software. While every effort has been made to ensure accuracy and proper clasp machine operator, there may be occasional errors that could affect the content or meaning of the described symptoms. Orders: Orders CA echo transesophageal Today Babak Fierro NP I63.9 - Cerebral infarction, unsp ecified ECG 30 day event monitor Today Babak Fierro NP R00.2 - Palpitations Medications: Changed From fluoxetine 20 mg PO DAILY 90 caps 3RF To fluoxetine 60 mg PO DAILY Christine De MD Refilled aspirin 81 mg PO DAILY 90 tabs 3RF Babak Fierro NP Coding Level of Care Code Est Pt Level 4 (85436) Complex EM visit Add On G2211 Diagnoses Coronary artery disease involving [place] coronary artery of [place] heart without angina pectoris I25.10 Coronary Disease-Associated Artery/Lesion type: [place] artery [place] vs. transplanted heart: [place] heart Associated angina: without angina Palpitations R00.2 Aortic valve disorder I35.9 Essential hypertension I10 Hypertension type: essential hypertension Dyslipidemia E78.5 Type 2 diabetes mellitus with hyperglycemia, with long-term current use of insulin E11.65; Z79.4 Diabetes mellitus residential insulin use: with predatory animal exterminator use SONY (obstructive sleep apnea) G47.33 Time Spent (min) 34 Comment Time spent in reviewing the chart, test results, assessment, counseling and documentation.
[2025-08-13 14:33] VITALS: BP 130/64; PULSE 62; BMI 33.2
--- OUTSIDE RECORDS SUMMARY | 2025-08-13 16:07 | XMS_ITS | Patient Health Record ---
[facility] Address [address] [place] [address] Care Team Providers Care Ssas Developer Name Role Phone Darek Lani Primary Care Provider Unavailabl e Black, Margarita Unavailable [phone] Allergies Allergen (clinical drug ingredient) Drug/Non Drug [...] tive Ranitidine 1 tab Oral Active Umeclidinium [place] 62.5 MCG/INH 1 puff Inhalation Once a [...] primary osteoarthritis of the ankle and/or foot (190580480) Primary osteoarthritis, right ankle and foot (M19.071) Active confirmed Problem Polyneuropathy due to type 2 diabetes mellitus (689669783) Type 2 diabetes mellitus with diabetic polyneuropathy (E11.42) Active confirmed Problem Traumatic arthropathy of the ankle and/or foot (347967318) 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 Plan Of Treatment Pending Test Test Name Order Date [id number] NAIL, 6 OR MORE 07/10/2020 97503-AFYWRND NAIL, 6 OR MORE 01/08/2021 46592-TSVXDSM NAIL, 6 OR MORE 04/13/2021 97088-ZGXPDBW NAIL, 6 OR MORE 09/07/2021 73991-ZZFKSUF NAIL, 6 OR MORE 12/17/2021 74225-PQSVHFR NAIL, 6 OR MORE 03/22/2022 52123-VPZUVIR NAIL, 6 OR MORE 06/24/2022 09298-EFTLFKJ NAIL, 6 OR MORE 09/23/2022 73940-FCCMZQN NAIL, 6 OR MORE 12/30/2022 98029-Iuhu Destruction, 1-14 12/30/2022 40757-Gkyu Destruction, 1-14 09/23/2022 33395, J0702- INJECT or DRAIN, JOINT/BUR SA 12/17/2021 57273-VAHI SKIN LESIONS, 2 TO 4 06/24/20 31543-XVCR SKIN LESIONS, 2 TO 4 12/31/19 85110-WJEX SKIN LESIONS, 2 TO 4 09/23/20, E7825-CGCSD/INJECT, JOINT/BURSA 0 11/12/2019 85796, E7900-ZEQCI/INJECT, JOINT/BURSA 0 03/22/2022 X ray : Ankle, right 3V 12/17/2021 Insurance Providers Payer Name Payer Address Payer Phone Subscriber Number Group Number Insured Name Patient Relationship to Insured Coverage Start Date Coverage End Date [facility] SCO Claims [address] [place] [id number] Mohit Segovia Self - patient is the [...] gall bladder 11/07/2019 Hospitalization History Reason Date(Month/Year) [facility] 06/24
--- OUTSIDE RECORDS SUMMARY | 2025-08-13 16:07 | XMS_ITS | Clinical Summary ---
Author Organization [facility] Address [address] [place] [address] Care Team Providers Care Fork Assembler Name Role Phone Unavailable Primary Care [...] Hepatitis C Screening 1966 Lipid Screening 1966 Tobacco Screening 1966 HIV Screening 1981 Medicare Annual [...] Drug Screen 10/03/2024 Depression Annual Screen 10/03/2024 [id number]-[id number]-36 ( - season) 2025 Imm-Influenza (#1) 2025 07/10/2020, 07/03/2019 Hypertension Screening (#1) 06/27/2025 Dental BW 06/30/2025 06/28/2024, 0501/2023, 08/17/2022 Dental [...] Most Recently Relevant to Health Maintenance Insurance [facility]
== END 2025-08-13 14:58 | disposition home or self-care (01) ==
LOC: HO.HCS 14:25
PROVIDERS: PCP Internal Medicine
DX: I25.10 Atherosclerotic heart disease of native coronary artery without angina pectoris (principal); R00.2 Palpitations; I35.9 Nonrheumatic aortic valve disorder, unspecified; I10 Essential (primary) hypertension; E78.5 Hyperlipidemia, unspecified; E11.65 Type 2 diabetes mellitus with hyperglycemia; Z79.4 Long term (current) use of insulin; G47.33 Obstructive sleep apnea (adult) (pediatric)
CPT/HCPCS: 99214; G2211

== ENCOUNTER → 2025-08-13 14:24 | Outpatient (BNVA) | payer OTHER, SELFPAY | PROVIDERS: PCP Internal Medicine | DX: I10 Essential (primary) hypertension (principal); I25.10 Atherosclerotic heart disease of native coronary artery without angina pectoris; R00.2 Palpitations; I35.9 Nonrheumatic aortic valve disorder, unspecified; E78.5 Hyperlipidemia, unspecified; E11.65 Type 2 diabetes mellitus with hyperglycemia; Z79.4 Long term (current) use of insulin; G47.33 Obstructive sleep apnea (adult) (pediatric); Z99.89 Dependence on other enabling machines and devices | CPT/HCPCS: 99212 ==

== ENCOUNTER 2025-08-21 09:00 | Outpatient (AMB) | payer OTHER, SELFPAY ==
[2025-08-21 09:08] VITALS: BP 130/60; PULSE 80; O2SAT 96; BMI 33.5
--- NOTE | 2025-08-21 09:08 | A.OFFVIS_ITS ---
Vital Signs 08/21/25 09:08 Height 6 ft Weight 246 lb 14.684 oz BMI 33.5 BP 130/60 Blood Pressure Location Rt brachial Position Sitting Pulse 80 Pulse Source Pulse Oximeter Pulse Oximetry (%) 96 Oxygen Delivery Method Room Air Intake Visit Reasons: Obstructive sleep apnea Patient Advocate Required: Yes Patient Advocate Services: Patient Advocate Offered & Declined Patient Advocate Name: MD speaks malay Accompanied by: Spouse Allergies [email or web address] (From Jardiance) Allergy (Severe, Verified 08/21/25 09:12) Itching morphine (Morphine) Allergy (Severe, Verified 08/21/25 09:12) HIVES, THROAT CLOSES penicillin G (Penicillin G) Allergy (Severe, Verified 08/21/25 09:12) ANAPHYLAXIS Sulfa (Sulfonamide Antibiotics) (SULFA (SULFONAMIDE ANTIBIOTICS)) Allergy (Severe, Verified 08/21/25 09:12) ANAPHYLAXIS Gadolinium-Containing Contrast Medi (Gadolinium-Containing Agents) Allergy (Intermediate, Verified 08/21/25 09:12) Hives/Rash, dizziness, blue spots adhesive tape Adverse Reaction (Intermediate, Verified 08/21/25 09:12) Rash tramadol Adverse Reaction (Intermediate, Verified 08/21/25 09:12) Gastrointestinal Upset hydromorphone (From Dilaudid) Adverse Reaction (Verified 08/21/25 09:12) Anaphylaxis HPI Comments Details: The patient is a 60-year-old gentleman with a history of obstructive sleep apnea who apparently developed COVID-19 little bit more than a year ago requiring ICU level of care. Subsequently after that his breathing has not been the same. He has had episodes of shortness of breath and has had to go to the ER multiple times because of worsening shortness of breath. He was provided with respiratory therapy including short-acting beta agonist. In addition to that he has been provided medications like prednisone. Subsequent please the patient was noted to have a recurrent pneumonia and a chest x-ray and treated antibiotics. Does back in beginning of April. He did have a repeat chest x-ray that demonstrated resolution of the right-sided pneumonia. I did review all his imaging studies from the [facility] system. Initially when he was admitted with the COVID 19 he did not have a CT scan but did demonstrate that he had bilateral hazy opacities and decreased lung Expansion. Subsequently after that she did have the x-ray demonstrating the developing pneumonia in the right hemithorax. Still though he has never had a CT scan in view of his ongoing respiratory symptoms something that we will address the pending a how he response to this therapy in the meantime she has been struggling with CPAP. He had been on oxygen while he was in the hospital. . The CPAP was affecting beneficial before but does not appear to be helpful any longer. He is having some daytime drowsiness is within up tired. Machine appears to be broken as well. Therefore, he had a sleep study done because of his elevated Lynchburg score of 14/24. The sleep study again demonstrates severe sleep apnea with an AHI greater than 40 significant hypoxia. Based on that will having undergo a CPAP BiPAP titration that the patient may need oxygen or may need a different type of PAP therapy. This is something we can arrange now in regards to his respiratory therapy the patient does have significant exhalation wheezing and coughing consistent likely a component of asthma and reactive airway disease that may have of all after developing a viral pneumonitis. Therefore will optimize respiratory therapy at this time. also to note the patient has not been vaccinated for COVID-19 because of concern of allergies that he has. I encouraged him to get vaccine as well as possible. But 1st I will check to see if he still has antibodies present. 06/20/2023 the patient is here for hospital follow-up visit. He has had a very eventful summer. Continues to have significant left-sided chest discomfort which appears to be in a dermatomal distribution. The patient does have significant spinal stenosis. He was referred to pain management. The patient opted on not having any interventions. One recommendation was to have an MRI of the spine to further address his underlying pain and spinal stenosis history as well as disc disease. He continues to require pain management. We did review his CT scan of the abdomen that he had a [facility] back in March 2023. It appears to show little bit of the left lung base without any acute disease although minimal. Appears to have a small fluid collection on the right. This appears to be stable for the last few years. His last CT scan of the chest here at [place] was back in 2020 demonstrating no significant DU except for the again that right lower lobe fluid pleural base density. The patient will continue with that became patch and then also consider some Tylenol with codeine to provide some pain relief. In the meantime due to the significant history of spinal stenosis will go ahead and request an MRI to better address the issue and help him with his ongoing pain that he has had for years. Hears already perform physical therapy he has already taken in multiple medications without any significant relief. 08/29/2023 the patient is here for a pulmonary follow-up visit. He is still having issues with the back pain. Seems to be getting worse in addition to that radiates to the front of the chest. Moderate severity. Also been having little bit more shortness of breath has been using his Dulera and his rescue inhaler more often. We had scheduled for an MRI of the back but apparently he is allergic to contrast and therefore I referred him to Pain Management in order for them to evaluate the area. He has had had surgery in the past they may have to see neurosurgery or spine surgery for further management. Still should be evaluated by Pain Management 1st to see if he is a good candidate for any nonsurgical approaches. Patient has been using CPAP. He states that he has been bleeding from the nose anything noticing some bloody secretions within the tubing and the CPAP machine. The patient will try water-based lubricant or saline gel and he will try to increase the humidity of the CPAP machine. If he has any difficulties he will call the office. I will also call the [employer] to see if I can get access to adjust the machine from that website. In view of his worsening respiratory symptoms will go ahead and switch him from Dulera to breztri with the hope that he gets better bronchodilation affect. He does have surgery scheduled for the beginning of October for his rotator cuff injury. 12/09/2023 the patient is here for pulmonary follow-up visit. Overall he has been doing fairly well from a respiratory status. The family did get COVID again but he was able to isolate himself and he did not end up getting sick which is reassuring. The patient knows that if he does get COVID he can always call the office we can get him antiviral medicine. In the meantime he continues uses CPAP at nighttime with good effect. He tries to use it more than 4 hours a night. The patient also has been still complaining of the back pain and neck pain in the reticular pain primarily affecting the left intercostal spaces. He did see pain management and they did recommend some interventions including a stimulator. He is going to contemplate those options and let the doctor no how he like to proceed. From a respiratory status he is tolerating the new inhaler. Appears to be working well for him. He has not required his rescue inhaler. 02/17/2024 the patient is here for a pulmonary follow-up visit. Overall he is doing fair. He is now complaining of right-sided chest discomfort. Pleuritic nature. Worse when coughing. He has been waking up coughing and some chest tightness at nighttime. He is having to use his rescue inhaler which she has been helpful. He does continue to use his respiratory medicine with good effect. He did have pulmonary function studies which I personally reviewed. He has mild restriction. Otherwise good. The patient has been using the CPAP. The CPAP therapy continues to be affecting beneficial. He does use it for more than 4 hours a night. He is still dealing with his back pain in his chest discomfort secondary to the radiculopathy. He has consider a pain stimulator. He has not sure as it yet. He is also dealing with shoulder issues. Does have a congested cough. Likely has a component of bronchitis. He has low IgM level suggesting some degree of immunodeficiency. Will try him on azithromycin 3 times a week. The patient will also undergo a chest x-ray and blood work. If he has any worsening symptoms he will call for an earlier assessment. 04/13/2024 the patient is here for pulmonary follow-up visit. Overall the patient is doing fairly okay. He is still complaining of daytime drowsiness. His Lynchburg score is elevated 11/24. This has been after effective treatment with sleep apnea. We did download the machine. He does use it more than 4 hours and his adherence is at 97%. The patient's AHI is down to 1.3 in the therapy has been affecting beneficial although he continues to have daytime drowsiness. Therefore started on small dose of Nuvigil may be effective for him. In addition to that he did complete the antibiotics for the chronic bronchitis and seems to be doing better and will stop the medicine at this time. He will continue with his current respiratory regimen though. He is working closely with pain management and also with GI. A lot of the GI symptoms have improved after stopping the Trulicity injections. Therefore the patient was start individual and will let us know we have to increase the dose. This is a very small dose and is at some trial to make sure that he tolerates especially since he is very sensitive to medications. He does tolerated we can increase slowly to the therapeutic range. 07/20/2024 the patient is here for a pulmonary follow-up visit. Overall he still has the same complaints. Still significant drowsiness. He has been using the CPAP in the CPAP therapy has been very affecting beneficial. His AHI is 1 below. His pressure settings are accurate and no further adjustments need to be made. The mask fitting is good and he does not have any significant air leakage. He has been under individuals small dose of 50 mg. at this point will incrsease to 100 mg. he understands that this is still a low dose but will slowly go enough to more therapeutic level. Recently he was evaluated at [facility] after developing stroke like symptoms. He was found to have critically elevated blood sugars. The patient was referred to endocrinology at [facility] and has an appointment next week. In the meantime he is going to continue with the current respiratory therapy. Will avoid prednisone because of his significant uncontrolled diabetes. 01/14/2025 the patient is here for a sick visit. Apparently he has been using CPAP every night and CPAP therapy has been very affecting beneficial. His AHI has been good. Although this has been some staying on the water did. He did call the DME to see what was all about. But he could not get a clear answer. He did bring the CPAP in. Season residual ricketts on the bottom of the water chamber which could be some mildew or mold for bacterial growth. For that reason is not safe to continue using the same water this. I did have a new 1 to provide him. We did talk about ways to keep it clean and dry to minimize on the stagnant water causing it to develop any colonization of any organisms. Meantime is respiratory symptoms are stable he continues on the medication as prescribed. He does complaint of abdominal pain distention. We did look at an ultrasound back in July which appeared to be okay except for fatty liver and he had a CT scan back in 2020 which we also reviewed demonstrating some postoperative changes after his cholecystectomy. But these are all old studies. If he continues to have discomfort he will talk to his primary care doctor about ordering evaluation for testing. 08/21/2025 the patient is here for pulmonary follow-up visit. Overall he is doing fair. He is using the CPAP every night. The CPAP therapy has been affecting beneficial. He is getting a new 1. Although he still we can up with significant daytime drowsiness. We have sent him Nuvigil done in the last visit but he never started it. Was not aware of it. I will go ahead and send him Provigil at this time. Hopefully, he can start the medication soon to see if we can improve his significant daytime drowsiness even after adequate CPAP therapy. The patient also has been using his respiratory therapy as prescribed. He is complaining of significant back pain. They did recommend surgery. He has not open to having surgery at this time. Will plan to follow-up in 4-6 months if any issues arise he will call for further recommendations. FORMERLY [facility], [facility] Medical History (Updated 08/21/25 @ 09:22 by Renato Saba MD) Hypersomnia with sleep apnea Difficulty swallowing RSV (respiratory syncytial virus infection) Has daytime drowsiness Allergies History of anesthesia complications Family history of anesthesia complication Type 2 diabetes mellitus Murmur COPD (chronic obstructive pulmonary disease) Lumbar post-laminectomy syndrome Degenerative cervical spinal stenosis Neuropathic pain COVID-19 Chest pain Post herpetic neuralgia Pleuritic chest pain Obesity (BMI 30-39.9) Asthma Pneumonia SONY (obstructive sleep apnea) Gwyn-[id number] syndrome Reactive airway disease On beta mitra at home History of pneumonia Vitamin D deficiency Left nephrolithiasis Dyslipidemia Diabetic polyneuropathy associated with type 2 diabetes mellitus Hypogonadism Failed back syndrome of lumbar spine Arthritis Back pain GERD (gastroesophageal reflux disease) History of fatty infiltration of liver History of ADHD Depression Elevated cholesterol HTN (hypertension) CAD (coronary artery disease) History of 2019 novel coronavirus disease (COVID-19) Cervical radiculopathy Nephrolithiasis Surgical History S/P cardiac catheterization Gynecomastia History of elbow surgery Hx laparoscopic cholecystectomy History of carpal tunnel release Hx of shoulder surgery Hx of arthroscopic knee surgery History of esophagogastroduodenoscopy (EGD) H/O colonoscopy Hx of lumbar discectomy Hx of cardiac catheterization Family History Father Diabetes Hypertension Myocardial infarction Mother Diabetes Stroke Alzheimers disease Pacemaker Brother Diabetes Heart problem Myocardial infarction Sister Myocardial infarction Maternal Grandmother Myocardial infarction Unknown No problems noted. Social History Household Members: Spouse and Family Housing: Apartment Are you a primary professional healthcare representative to a significant other at home: No Do you presently have visiting nurse or other home services: No Alcohol intake: never Patient Tobacco Use Status: Never used Tobacco e-Cigarette/Vaping Use: Never Used Second Hand Smoke Exposure: No Advance Directives Date on File: 09/28/23 service: No Current occupational status: disabled Cognitive needs: No Hearing needs: No Vision needs: No Review of Systems Const Reports daytime sleepiness, Denies fatigue, Denies weight gain and Reports weight loss Eyes Denies blurry vision ENT Denies epistaxis and Denies sore throat Card Reports chest pain, Denies palpitations and Denies dyspnea Resp Reports chest congestion, Reports cough, Reports pain on inspiration and Denies dyspnea GI Denies constipation and Denies diarrhea Denies dysuria and Denies urinary frequency Musc Reports back pain, Reports arthralgias, Reports joint swelling, Reports limited range of motion, Denies muscle cramps, Denies muscle weakness, Reports numbness and Reports tingling Neuro Denies burning sensations, Reports numbness, Reports tingling and Denies paresthesias Psych Denies depression Endo Denies fatigue, Denies polydipsia, Denies polyuria and Denies palpitations Tejas/Lymph Denies easy bruising Physical Exam Vital Signs: Last Vital Signs Pulse 80 08/21/25 09:08 BP 130/60 08/21/25 09:08 Pulse Ox 96 08/21/25 09:08 Oxygen Delivery Method Room Air 08/21/25 09:08 BMI result Body Mass Index 33.5 Const General: no acute distress and alert HEENT Head: Yes normocephalic and Yes atraumatic Eyes Sclerae: sclerae normal EOM: EOMs intact bilaterally Neck Neck: Yes no lymphadenopathy, Yes trachea midline and Yes no JVD Thyroid: Thyroid normal Chest Chest palpation & inspection: normal inspection of the chest Resp Effort & Inspection: normal respiratory effort Auscultation: diminished lung sounds Cardio Rate: regular rate Rhythm: regular rhythm Heart sounds: S1 normal heart sound present and S2 normal heart sound present Peripheral pulses: Peripheral pulses 2+ throughout GI Inspection: Yes normal to inspection and No distended Auscultation: normal bowel sounds Skin Other: No acanthosis nigricans or diabetic dermopathy Neuro Sensory Exam: Trunk sensory exam abnormal (tenderness skin palpation superficial pain dermatomal distributibution) Deep tendon reflexes (DTR's): Rt Biceps (C5, C6): 2+, Left biceps reflex intensity grade: 2+, Right patellar reflex intensity grade: 2+ and Left patellar reflex intensity grade: 2+ Extrem Other: Foot inspection: No lesions, ulcers. + oncymychosis General: Yes normal gait, No clubbing, No cyanosis and No edema Psych Affect: normal affect Attitude: cooperative Office Procedures Flu Questionnaire Does the patient have a severe egg allergy?: No Does the patient have severe life threatening allergies?: No Does the patient have a fever or illness today?: No Has the patient ever had Guillain-Laona Syndrome?: No Has the patient ever had any past reaction to a flu shot?: No Immunizations Fluarix [id number] (PF) 45 mcg (15 mcg x 3)/0.5 mL IM syringe Performing Provider: Renato Saba MD Performing Location: [facility] Administered by: Christine Angel LPN on 08/21/25 09:59 Dose Route Admin Location Dispensed Lot Number Expiration Date NDC Sales Enablement Consultant 0.5 mL IM Right Deltoid 0.5 mL [id number] 04/01/26 [id number] [employer] VIS Given Date VIS Provided VIS Publication Date 08/21/25 Single Vaccine 24 Eligibility Eligibility Date Funding Source Not [facility] Eligible 08/21/25 Private Assessment & Plan Assessment & Plan (1) SONY (obstructive sleep apnea): Code(s): G47.33 - Obstructive sleep apnea (adult) (pediatric) Category: Medical (2) [id number] syndrome: Code(s): B94.8 - Sequelae of other specified infectious and parasitic diseases Category: Medical (3) Asthma: Code(s): J45.909 - Unspecified asthma, uncomplicated Category: Medical Qualifiers: Asthma complication type: uncomplicated Asthma persistence: persistent Asthma severity: moderate Qualified Code(s): J45.40 - Moderate persistent asthma, uncomplicated (4) Has daytime drowsiness: Comment: even after effective APAP therapy with AHI 1.3 Code(s): R40.0 - Somnolence Category: Social Hx (5) Hypersomnia with sleep apnea: Code(s): G47.10 - Hypersomnia, unspecified; G47.30 - Sleep apnea, unspecified Category: Medical Plan continue Breztri BID short-acting beta agonist as needed nebulizer that he can use as needed lidoderm patch to the left sided neuropathy continue APAP therapy, medium F30i mask, provided a new water chamber and directions of caring for it provided Start Provigil F/U 4-6 months Orders: Orders Influenza [id number] Immunization Today J45.40 - Moderate persistent asthma, uncomplicated Medications: New modafinil (Provigil) 100 mg PO DAILY 30 tabs 3RF 30 days G47.10 - Hypersomnia, unspecified, G47.30 - Sleep apnea, unspecified Coding Level of Care Code Est Pt Level 4 (05728) Complex EM visit Add On G2211 Diagnoses SONY (obstructive sleep apnea) G47.33 [id number]-YNDQK-31 syndrome B94.8 Moderate persistent asthma without complication J45.40 Asthma complication type: uncomplicated Asthma persistence: persistent Asthma severity: moderate Has daytime drowsiness R40.0 Hypersomnia with sleep apnea G47.10; G47.30 Time Spent (min) 17
--- OUTSIDE RECORDS SUMMARY | 2025-08-21 16:50 | XMS_ITS | Patient Health Record ---
[facility] Address [address] [address] Care Team Providers Care Piped Buttonhole Machine Operator Name Role Phone Darek Lani Primary Care Provider Unavailabl e Black, Margarita Unavailable [phone] Allergies Allergen (clinical drug ingredient) Drug/Non Drug [...] tive Ranitidine 1 tab Oral Active Umeclidinium Hammond 62.5 MCG/INH 1 puff Inhalation Once a [...] primary osteoarthritis of the ankle and/or foot (451723827) Primary osteoarthritis, right ankle and foot (M19.071) Active confirmed Problem Polyneuropathy due to type 2 diabetes mellitus (294399323) Type 2 diabetes mellitus with diabetic polyneuropathy (E11.42) Active confirmed Problem Traumatic arthropathy of the ankle and/or foot (699181883) 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 Plan Of Treatment Pending Test Test Name Order Date [id number] NAIL, 6 OR MORE 07/10/2020 [id number] NAIL, 6 OR MORE 01/08/2021 [id number] NAIL, 6 OR MORE 04/13/2021 60093-MNIYYHA NAIL, 6 OR MORE 09/07/2021 [id number] NAIL, 6 OR MORE 12/17/2021 [id number]-VNICCPQ NAIL, 6 OR MORE 03/22/2022 91848-QLNASHE NAIL, 6 OR MORE 06/24/2022 85942-TCIXOVK NAIL, 6 OR MORE 09/23/2022 [id number]-HIFMZGX NAIL, 6 OR MORE 12/30/2022 79089-Mowd Destruction, 1-14 12/30/2022 21081-Uuhh Destruction, 1-14 09/23/2022 60803, J0702- INJECT or DRAIN, JOINT/BUR SA 12/17/2021 16231-TLUK SKIN LESIONS, 2 TO 4 06/24/20 06860-DCKD SKIN LESIONS, 2 TO 4 12/31/19 07324-VOJQ SKIN LESIONS, 2 TO 4 09/23/20, J7051-HFMGA/INJECT, JOINT/BURSA 0 11/12/2019 65703, [id number]-YHDJN/INJECT, JOINT/BURSA 0 03/22/2022 X ray : Ankle, right 3V 12/17/2021 Insurance Providers Payer Name Payer Address Payer Phone Subscriber Number Group Number Insured Name Patient Relationship to Insured Coverage Start Date Coverage End Date [facility] [employer] Claims [address] [place] [address] [id number] Mohit Segovia Self - patient is the [...] gall bladder 11/07/2019 Hospitalization History Reason Date(Month/Year) [facility] 06/24
--- OUTSIDE RECORDS SUMMARY | 2025-08-21 16:50 | XMS_ITS | Clinical Summary ---
Author Organization [facility] Address [address] [facility] [address] [place] [address] Phone Care Team Providers Care Meat Carver Name Role Phone Татьяна Haynes MD Primary [...] each day 2 Active Insulin Infusion Pump (Personal Capital G6 Control-IQ Ins Pump) device Active metFORMIN [...] Office Visit [facility] [address] [phone] Paz Dee ARNP [address] [phone] Health Maintenance Due Date Last Done Comments [...] PM EDT) Hemoglobin A1C 6.3(H) (4.0-5.6) % [facility] Comment: MONITORING: In known diabetic patients, [...] 1 Testing performed or reported by [facility], a Service of [facility], [address] [place] [address] Terrell Carver MD, Mail Teller [facility]# [id number] Blood specimen (specimen) Venous blood / Unknown 03/11/2023 2:17 PM EDT 03/11/2023 2:18 PM EDT us Aren Hoskins MD LAB BLOOD ORDERABLES Angelita l Result [facility] from Last 3 Months or Most Recently Relevant to Health Maintenance Insurance [facility] ([id number]) [facility] ([id number]) Care Teams Meat Carver Relationship Specialty Start Date End Date Татьяна Haynes MD [address] [address] PCP - General Internal Medicine 01/25/23
--- OUTSIDE RECORDS SUMMARY | 2025-08-21 16:50 | XMS_ITS | Clinical Summary ---
Author Organization [facility] Address [address] [place] [address] Phone Care Team Providers Care Orthopedic Designer Name Role Phone Christine De MD Primary Care Provider [phone] Allergies Active Allergy Reactions Criticality Noted Date [...] ID:[id number] Group ID:[id number] Type:Not on file Address: [place] [address] [place] [id number] Care Teams Orthopedic Designer Relationship Specialty Start Date End Date Christine De MD [address] [place] [phone] PCP - General Internal Medicine 04/17/25
== END 2025-08-21 09:35 | disposition home or self-care (01) ==
LOC: HO.HPS 09:00
PROVIDERS: PCP Internal Medicine; Visit Provider Hospitalist
DX: G47.33 Obstructive sleep apnea (adult) (pediatric) (principal); B94.8 Sequelae of other specified infectious and parasitic diseases; J45.40 Moderate persistent asthma, uncomplicated; R40.0 Somnolence; G47.10 Hypersomnia, unspecified; G47.30 Sleep apnea, unspecified
CPT/HCPCS: 99214; G2211

== ENCOUNTER → 2025-08-21 09:41 | Outpatient (REF) | payer OTHER, SELFPAY ==
--- NOTE | 2025-08-21 09:43 | HM_ITS ---
Cardiac event monitor Indication: Palpitation with prior CVA Technique: Patient was hooked up to cardiac event monitors from 08/21/2025 to 09/20/2025 with a total wear time of 19.5 days Findings: Baseline was normal sinus rhythm with 99.87% of the time heart in sinus rhythm. Average heart rate is 80 beats per minute. Lowest heart rate is 54 beats per minute sinus bradycardia and maximum heart rate of 120 beats per minute sinus tachycardia. There were no significant pauses or av conduction abnormalities noted. There were rare PACs and PVCs noted without sustained arrhythmias. The no episodes of atrial fibrillation. Patient marked the counter 5 times. One time reported symptoms of chest pain. That correlated with sinus rhythm. Three of the other events correlated with sinus rhythm. One other reported events correlated with isolated PVCs with no symptoms reported. Conclusion: 1. Baseline was normal sinus rhythm with no significant pauses 2. No significant atrial fibrillation with rare ectopy 3. 4/5 patient marked events correlated with sinus rhythm, 1 correlating with PVCs MTDD
== END ==
LOC: HO.CARD 09:41
PROVIDERS: PCP Internal Medicine
DX: G47.33 Obstructive sleep apnea (adult) (pediatric) (principal); R00.2 Palpitations; J45.40 Moderate persistent asthma, uncomplicated; B94.8 Sequelae of other specified infectious and parasitic diseases; R40.0 Somnolence; G47.10 Hypersomnia, unspecified; Z79.51 Long term (current) use of inhaled steroids; Z23 Encounter for immunization
CPT/HCPCS: 90471; 90656; 93270; 99212

== ENCOUNTER → 2025-08-21 09:43 | Outpatient (BNV) | payer OTHER, SELFPAY | PROVIDERS: PCP Internal Medicine; Visit Provider Internal Medicine Cardiovascular Disease | DX: I49.3 Ventricular premature depolarization (principal) | CPT/HCPCS: 93272 ==

== ENCOUNTER 2025-09-11 11:59 | Day surgery (SDC) | payer OTHER, SELFPAY ==
--- OUTSIDE RECORDS SUMMARY | 2025-08-14 09:55 | XMS_ITS | Clinical Summary ---
Author Organization [facility] Address [address] [place] [address] Phone Care Team Providers Care Farrowing Manager Name Role Phone Татьяна Haynes MD [...] each day 2 Active Insulin Infusion Pump ([address] G6 Control-IQ Ins Pump) device Active metFORMIN [...] Office Visit [facility] [address] [phone] Paz Dee ARNP [address] [phone] Health Maintenance Due Date Last Done Comments [...] PM EDT) Hemoglobin A1C 6.3(H) (4.0-5.6) % [facility] Comment: MONITORING: In known diabetic patients, hemoglobin A1c targets should be discussed with health care provider. DIAGNOSTIC USE: The [place] Diabetes Association (ADA) and the World Health [...] Supplement 1 Testing performed or reported by [facility], a Service of [facility], [address] [place] [address] Terrell Carver MD, Moss Picker [facility]# [id number] Blood specimen (specimen) Venous blood / Unknown 03/11/2023 2:17 PM EDT 03/11/2023 2:18 PM EDT us Aren Hoskins MD LAB BLOOD ORDERABLES Angelita l Result [facility] from Last 3 Months or Most Recently Relevant to Health Maintenance Insurance [facility] ([id number]) [facility] ([id number]) Care Teams Farrowing Manager Relationship Specialty Start Date End Date Татьяна Haynes MD [address] [address] PCP - General Internal Medicine 01/25/23
--- OUTSIDE RECORDS SUMMARY | 2025-08-14 09:55 | XMS_ITS | Patient Health Record ---
[facility] Address [address] [place] [address] Care Team Providers Care Social Secretary Name Role Phone Darek Lain Primary Care Provider Unavailabl e Black, Margarita Unavailable [phone] Allergies Allergen (clinical drug ingredient) Drug/Non Drug [...] tive Ranitidine 1 tab Oral Active Umeclidinium [place] 62.5 MCG/INH 1 puff Inhalation Once a [...] primary osteoarthritis of the ankle and/or foot (609210276) Primary osteoarthritis, right ankle and foot (M19.071) Active confirmed Problem Polyneuropathy due to type 2 diabetes mellitus (830203049) Type 2 diabetes mellitus with diabetic polyneuropathy (E11.42) Active confirmed Problem Traumatic arthropathy of the ankle and/or foot (856491956) 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 Plan Of Treatment Pending Test Test Name Order Date [id number]-WVHWSCP NAIL, 6 OR MORE 07/10/2020 40872-BGIUPKB NAIL, 6 OR MORE 01/08/2021 95921-JRMGFLO NAIL, 6 OR MORE 04/13/2021 78335-MIXIAHE NAIL, 6 OR MORE 09/07/2021 74399-OLJUSBH NAIL, 6 OR MORE 12/17/2021 96776-HQNWUJX NAIL, 6 OR MORE 03/22/2022 17936-EVUPTSR NAIL, 6 OR MORE 06/24/2022 54171-PCSFOOC NAIL, 6 OR MORE 09/23/2022 35287-DOQSTND NAIL, 6 OR MORE 12/30/2022 54411-Hxvd Destruction, 1-14 12/30/2022 68069-Ehzd Destruction, 1-14 09/23/2022 51708, J0702- INJECT or DRAIN, JOINT/BUR SA 12/17/2021 27834-HYKB SKIN LESIONS, 2 TO 4 06/24/20 08867-LOVS SKIN LESIONS, 2 TO 4 12/31/19 00501-FDVN SKIN LESIONS, 2 TO 4 09/23/20, S3179-SCULN/INJECT, JOINT/BURSA 0 11/12/2019 45702, N9803-AFWZH/INJECT, JOINT/BURSA 0 03/22/2022 X ray : Ankle, right 3V 12/17/2021 Insurance Providers Payer Name Payer Address Payer Phone Subscriber Number Group Number Insured Name Patient Relationship to Insured Coverage Start Date Coverage End Date [facility] SCO Claims [address] [place] [id number] Mohit Segovia Self - patient is the [...] gall bladder 11/07/2019 Hospitalization History Reason Date(Month/Year) [facility] 06/24
--- OUTSIDE RECORDS SUMMARY | 2025-08-14 09:55 | XMS_ITS | Clinical Summary ---
Author Organization [facility] Address [address] [place] [address] Phone Care Team Providers Care Hand Printed Circuit Board Assembler Name Role Phone Christine De MD Primary Care Provider [phone] Allergies Active Allergy Reactions Criticality Noted Date Comments Adhesive Tape-Silicones Rash 04/17/2025 Empagliflozin Itching 04/17/2025 Gadolinium-Containing Contrast Media Hives,Rash,Dizziness 04/17/2025 Blue spots Hydromorphone Anaphylaxis High 04/17/2025 Iodinated Contrast Media 04/17/2025 Morphine 04/17/2025 Penicillins Anaphylaxis High 04/17/2025 Sulfa (Sulfonamide Antibiotics) Anaphylaxis High 04/17/2025 Tramadol 04/17/2025 GI upset Social History Tobacco Use Types Packs/Day Years [...] Health Maintenance Due Date Last Done Comments Colorectal Cancer Screening: Colonoscopy 1966 Diabetes: Annual Foot Exam 1976 Diabetes: Annual Retina Eye Exam 1976 Hepatitis B Vaccines (1 of 3 - 19+ 3-dose series) 1985 RSV Immunization Adult Patients (1 - Risk 50-74 years 1-dose series) 2016 Depression Screening 10/03/2024 Cholesterol Screening (Lipid Panel) 04/18/2025 Diabetes: Blood Sugar Control Test (HGBA1C) [...] (2 - Td or Tdap) 02/25/2032 02/24/2022 Zoster Vaccines Completed 06/11/2022, 02/24/2022 Pneumococcal Vaccine: [...] on patient's age to complete this topic Insurance [employer] MED[employer]ARE Member Subscriber Plan / Payer (Ef fective 2020-Present) Name:ORIN BENNETT Relation to Subscriber:Self Name:Orin Bennett Payer ID:[id number] Group ID:[id number] Type:Not on file Address: [place] [address] [place] [id number] Care Teams Hand Printed Circuit Board Assembler Relationship Specialty Start Date End Date Christine De MD [address] [place] [address] PCP - General Internal Medicine 04/17/25
--- OUTSIDE RECORDS SUMMARY | 2025-08-14 09:55 | XMS_ITS | Clinical Summary ---
Author Organization [facility] Address [address] [place] [address] Care Team Providers Care Marketing Communications Assistant Name Role Phone Unavailable Primary Care Provider [...] Drug Screen 10/03/2024 Depression Annual Screen 10/03/2024 Xzr-VCHFA-37 ( - season) 2025 Imm-Influenza (#1) 2025 [...] Most Recently Relevant to Health Maintenance Insurance [facility]
--- NOTE | 2025-08-20 10:55 | HO.ANESPROP2 ---
Documented by User: Jackelin Webb NP 09/09/25 10:01 HPI - Anesthesia Eval Consult details Narrative: 60 yr old male for transesophageal echocardiogram CAD: [place] [facility] [place]Stroke about a year ago with 2 TIAs since. MRA neck was negative for carotid stenosis; on aspirin therapy. -Given his reports of ongoing palpitations with shortness of breath, we will get a NOÉ to evaluate for a PFO and a cardiac event monitor to assess for potential arrhythmias specifically AFib -05/19/2023-patient underwent a cardiac catheterization with Dr. Leong at [facility] that showed nonobstructive disease in the mid LAD with 30% stenosis. -05/07/2025-patient's echo showed a normal LV systolic function with an ejection fraction at 63% with mild aortic valve stenosis. Aortic stenosis: echo from 05/2025 notes mild ; mean gradient 13, AV VTI 1.76 Asthma: [place] [facility] [place], stable at 01/2025 visit SONY: compliant with CPAP Anesthesia Pre-Procedure Meds Is the patient on any of the following meds?: GLP1/DPP4 PMFSH Active Problems Active Problems: All Active Problems Palpitations (Acute) Lumbar disc herniation (Acute) Colon cancer screening (Acute) Left upper quadrant abdominal pain (Acute) Abdominal pain (Acute) Mood disorder (Acute) Encounter for preoperative pulmonary examination (Acute) New onset headache (Acute) New daily persistent headache (Acute) Bone loss (Acute) Cervical spondylosis (Acute) Autonomic dysreflexia (Acute) Radiculopathy due to lumbar intervertebral disc disorder (Acute) Aortic valve disorder (Acute) Preop cardiovascular exam (Acute) Right rotator cuff tear (Acute) Painful arc syndrome of right shoulder (Acute) Epistaxis (Acute) Constipation (Acute) Renal calculi (Acute) Dyspnea (Acute) Type 2 diabetes mellitus with hyperglycemia (Acute) Viral illness (Acute) Hematuria (Acute) Radicular pain (Acute) Dysuria (Acute) Recurrent major depression (Acute) Community acquired pneumonia (Acute) SOB (shortness of breath) (Acute) Annual physical exam (Acute) NAFLD (nonalcoholic fatty liver disease) (Acute) Tubular adenoma (Acute) Paronychia (Acute) Hydronephrosis (Acute) Hypercalcemia (Acute) Obesity (BMI 30-39.9) (Acute) TMJ syndrome (Acute) Right otitis media with effusion (Acute) SOB (shortness of breath) on exertion (Acute) Atypical chest pain (Acute) Obstructive sleep apnea (Acute) Sleep apnea (Acute) BPH w urinary obs/LUTS (Acute) Nephrolithiasis (Acute) Hydroureteronephrosis (Acute) Has daytime drowsiness (Acute) Allergies (Acute) S/P cardiac catheterization (Acute) Lumbar post-laminectomy syndrome (Acute) Degenerative cervical spinal stenosis (Acute) Neuropathic pain (Acute) COVID-19 (Acute) Chest pain (Acute) Post herpetic neuralgia (Acute) Pleuritic chest pain (Acute) Obesity (BMI 30-39.9) (Acute) Asthma (Acute) Pneumonia (Acute) SONY (obstructive sleep apnea) (Acute) [id number] syndrome (Acute) Reactive airway disease (Acute) Vitamin D deficiency (Acute) History of fatty infiltration of liver (Acute) Dyslipidemia (Acute) Diabetic polyneuropathy associated with type 2 diabetes mellitus (Acute) CAD (coronary artery disease) (Acute) Depression (Acute) GERD (gastroesophageal reflux disease) (Acute) HTN (hypertension) (Acute) Cervical radiculopathy (Acute) Past Medical History Medical History Hypersomnia with sleep apnea Difficulty swallowing RSV (respiratory syncytial virus infection) Has daytime drowsiness Allergies History of anesthesia complications Family history of anesthesia complication Type 2 diabetes mellitus Murmur COPD (chronic obstructive pulmonary disease) Lumbar post-laminectomy syndrome Degenerative cervical spinal stenosis Neuropathic pain COVID-19 Chest pain Post herpetic neuralgia Pleuritic chest pain Obesity (BMI 30-39.9) Asthma Pneumonia SONY (obstructive sleep apnea) [id number] syndrome Reactive airway disease On beta mitra at home History of pneumonia Vitamin D deficiency Left nephrolithiasis Dyslipidemia Diabetic polyneuropathy associated with type 2 diabetes mellitus Hypogonadism Failed back syndrome of lumbar spine Arthritis Back pain GERD (gastroesophageal reflux disease) History of fatty infiltration of liver History of ADHD Depression Elevated cholesterol HTN (hypertension) CAD (coronary artery disease) History of 2019 novel coronavirus disease (COVID-19) Cervical radiculopathy Nephrolithiasis Family History Family History Father Diabetes Hypertension Myocardial infarction Mother Diabetes Stroke Alzheimers disease Pacemaker Brother Diabetes Heart problem Myocardial infarction Sister Myocardial infarction Maternal Grandmother Myocardial infarction Unknown No problems noted. Family history of problems with anesthesia: No Surgical History Surgical History S/P cardiac catheterization Gynecomastia History of elbow surgery Hx laparoscopic cholecystectomy History of carpal tunnel release Hx of shoulder surgery Hx of arthroscopic knee surgery History of esophagogastroduodenoscopy (EGD) H/O colonoscopy Hx of lumbar discectomy Hx of cardiac catheterization History of Problems with Anesthesia: No Social History Social History Household Members: Spouse and Family Housing: Apartment Are you a primary healthcare recruiter to a significant other at home: No Do you presently have visiting nurse or other home services: No Alcohol intake: never Patient Tobacco Use Status: Never used Tobacco e-Cigarette/Vaping Use: Never Used Second Hand Smoke Exposure: No Have you been hit, kicked, punched, or otherwise hurt by someone within the past year? If so, by whom?: No Are you DNR?: No Advance Directives: No Advance Directives Information Provided: Yes Advance Directives Date on File: 09/28/23 service: No Current occupational status: disabled Cognitive needs: No Hearing needs: No Vision needs: No Meds Allergies Allergy/AdvReac Type Severity Reaction Status Date / Time empagliflozin (From Allergy Severe Itching Verified 09/11/25 12:20 Jardiance) morphine (Morphine) Allergy Severe HIVES, Verified 09/11/25 12:20 THROAT CLOSES penicillin G (Penicillin G) Allergy Severe ANAPHYLAXIS Verified 09/11/25 12:20 Sulfa (Sulfonamide Allergy Severe ANAPHYLAXIS Verified 09/11/25 12:20 Antibiotics) (SULFA (SULFONAMIDE ANTIBIOTICS)) Gadolinium-Containing Allergy Intermediate Hives/Rash, Verified 09/11/25 12:20 Contrast Medi dizziness, (Gadolinium-Containing blue spots Agents) adhesive tape AdvReac Intermediate Rash Verified 09/11/25 12:20 tramadol AdvReac Intermediate Gastrointestinal Verified 09/11/25 12:20 Upset hydromorphone (From Dilaudid) AdvReac Anaphylaxis Verified 09/11/25 12:20 Home Medications ?Medication ?Instructions ?Recorded ?Confirmed ?Last Taken ?Type pen needle, diabetic 32 gauge x #50 ea 03/25/21 09/19/23 Unknown History carboxymethylcellulose sodium 0.5 1 drp ophthalmic (eye) BID 08/29/23 09/09/25 Unknown History % eye drops (Refresh Tears) acetaminophen 325 mg tablet 650 mg PO Q6H PRN Pain 11/05/24 09/09/25 Unknown History erenumab-aooe 70 mg/mL mg subcut 01/15/25 08/13/25 Unknown History subcutaneous auto-injector (Aimovig Autoinjector) ezetimibe 10 mg tablet 10 mg PO DAILY 05/15/25 09/09/25 Unknown History metoprolol succinate 25 mg 50 mg PO BID 05/15/25 09/09/25 Unknown History tablet,extended release 24 hr ondansetron 4 mg disintegrating 4 mg PO Q8H 05/15/25 09/09/25 Unknown History tablet famotidine 10 mg tablet (Heartburn 10 mg PO BID 07/02/25 09/09/25 Unknown History Relief (famotidine)) dulaglutide 1.5 mg/0.5 mL 1.5 mg subcut QWEEK 08/02/25 09/09/25 08/27/25 History subcutaneous pen injector (Trulicity) fluoxetine 20 mg capsule 60 mg PO DAILY 08/13/25 09/09/25 Unknown History metformin 500 mg tablet,extended 1,000 mg PO BID 09/11/25 09/11/25 Unknown History release 24 hr Exam Narrative Narrative: ECHO 05/2025 Conclusions: - The left ventricular systolic function is normal. The calculated ejection fraction is 63% by biplane method. - There is mild aortic valve stenosis. Assessment and Plan Final Anesthetic Review Family History of Problems with Anesthesia: No History of Problems with Anesthesia: No Documented by User: Anabel Cuevas MD 09/11/25 14:29 [facility] Past Medical History Medical History Hypersomnia with sleep apnea Difficulty swallowing RSV (respiratory syncytial virus infection) Has daytime drowsiness Allergies History of anesthesia complications Family history of anesthesia complication Type 2 diabetes mellitus Murmur COPD (chronic obstructive pulmonary disease) Lumbar post-laminectomy syndrome Degenerative cervical spinal stenosis Neuropathic pain COVID-19 Chest pain Post herpetic neuralgia Pleuritic chest pain Obesity (BMI 30-39.9) Asthma Pneumonia SONY (obstructive sleep apnea) [id number] syndrome Reactive airway disease On beta mitra at home History of pneumonia Vitamin D deficiency Left nephrolithiasis Dyslipidemia Diabetic polyneuropathy associated with type 2 diabetes mellitus Hypogonadism Failed back syndrome of lumbar spine Arthritis Back pain GERD (gastroesophageal reflux disease) History of fatty infiltration of liver History of ADHD Depression Elevated cholesterol HTN (hypertension) CAD (coronary artery disease) History of 2019 novel coronavirus disease (COVID-19) Cervical radiculopathy Nephrolithiasis Family History Family History Father Diabetes Hypertension Myocardial infarction Mother Diabetes Stroke Alzheimers disease Pacemaker Brother Diabetes Heart problem Myocardial infarction Sister Myocardial infarction Maternal Grandmother Myocardial infarction Unknown No problems noted. Surgical History Surgical History S/P cardiac catheterization Gynecomastia History of elbow surgery Hx laparoscopic cholecystectomy History of carpal tunnel release Hx of shoulder surgery Hx of arthroscopic knee surgery History of esophagogastroduodenoscopy (EGD) H/O colonoscopy Hx of lumbar discectomy Hx of cardiac catheterization Social History Social History Household Members: Spouse and Family Housing: Apartment Are you a primary healthcare recruiter to a significant other at home: No Do you presently have visiting nurse or other home services: No Alcohol intake: never Patient Tobacco Use Status: Never used Tobacco e-Cigarette/Vaping Use: Never Used Second Hand Smoke Exposure: No Have you been hit, kicked, punched, or otherwise hurt by someone within the past year? If so, by whom?: No Are you DNR?: No Advance Directives: No Advance Directives Information Provided: Yes Advance Directives Date on File: 09/28/23 service: No Current occupational status: disabled Cognitive needs: No Hearing needs: No Vision needs: No Meds Allergies Allergy/AdvReac Type Severity Reaction Status Date / Time empagliflozin (From Allergy Severe Itching Verified 09/11/25 12:20 Jardiance) morphine (Morphine) Allergy Severe HIVES, Verified 09/11/25 12:20 THROAT CLOSES penicillin G (Penicillin G) Allergy Severe ANAPHYLAXIS Verified 09/11/25 12:20 Sulfa (Sulfonamide Allergy Severe ANAPHYLAXIS Verified 09/11/25 12:20 Antibiotics) (SULFA (SULFONAMIDE ANTIBIOTICS)) Gadolinium-Containing Allergy Intermediate Hives/Rash, Verified 09/11/25 12:20 Contrast Medi dizziness, (Gadolinium-Containing blue spots Agents) adhesive tape AdvReac Intermediate Rash Verified 09/11/25 12:20 tramadol AdvReac Intermediate Gastrointestinal Verified 09/11/25 12:20 Upset hydromorphone (From Dilaudid) AdvReac Anaphylaxis Verified 09/11/25 12:20 Home Medications ?Medication ?Instructions ?Recorded ?Confirmed ?Last Taken ?Type pen needle, diabetic 32 gauge x #50 ea 03/25/21 09/19/23 Unknown History carboxymethylcellulose sodium 0.5 1 drp ophthalmic (eye) BID 08/29/23 09/09/25 Unknown History % eye drops (Refresh Tears) acetaminophen 325 mg tablet 650 mg PO Q6H PRN Pain 11/05/24 09/09/25 Unknown History erenumab-aooe 70 mg/mL mg subcut 01/15/25 08/13/25 Unknown History subcutaneous auto-injector (Aimovig Autoinjector) ezetimibe 10 mg tablet 10 mg PO DAILY 05/15/25 09/09/25 Unknown History metoprolol succinate 25 mg 50 mg PO BID 05/15/25 09/09/25 Unknown History tablet,extended release 24 hr ondansetron 4 mg disintegrating 4 mg PO Q8H 05/15/25 09/09/25 Unknown History tablet famotidine 10 mg tablet (Heartburn 10 mg PO BID 07/02/25 09/09/25 Unknown History Relief (famotidine)) dulaglutide 1.5 mg/0.5 mL 1.5 mg subcut QWEEK 08/02/25 09/09/25 08/27/25 History subcutaneous pen injector (Trulicity) fluoxetine 20 mg capsule 60 mg PO DAILY 08/13/25 09/09/25 Unknown History metformin 500 mg tablet,extended 1,000 mg PO BID 09/11/25 09/11/25 Unknown History release 24 hr Exam Airway Mallampati Class: III TM Dist: >3cm Neck ROM: Full Heart: rrr Lungs: cta Assessment and Plan Assessment Anesthesia Assessment: Anesthesia Plan Discussed and Chart Reviewed Final Anesthetic Review NPO: Yes ASA Class: III Final Preanesthetic Review: No Changes in Pt Med Stat, Meds/Allgs Chart Reviewed and Consent Obtained/Reviewed Patient Risk: Intermediate Procedure Risk: Intermediate Anesthetic Plan Anesthetic Plan: MAC: Disposition: Standard PACU
[2025-09-09 11:16] VITALS: BMI 33.2
[2025-09-11 12:15] VITALS: BMI 32.0
[2025-09-11] MEDS: Lactated Ringers 1,000 ML 100 ML IVCONT (12:26)
[2025-09-11 12:39] VITALS: BP 133/76; PULSE 74; RESP 18; TEMP 36.8; O2SAT 96
[2025-09-11 12:40] LABS: Glucose, Whole Blood 121 mg/dL (60-115)
--- NOTE | 2025-09-11 14:03 | CA_ITS ---
Transesophageal Echocardiogram Patient (Last, First, Middle): Mohit Segovia, Gender: Male Date of : 1965 Age: 60 Procedure Date: 09/11/2025 Procedure Type: Transesophageal Echocardiogram Location: OP Height: 182. cm Weight: 99.01 kg BSA: 2.20 m2 Heart Rate: 88 bpm BP: 142 / 83 mmHg Biostatistics Manager: SB Referring MD: Babak Fierro NP Symptoms: I63.9 - Cerebral infarction, unspecified Conclusion: ??? 1. Noted PFO both by color as well as bubble contrast study with tunnel morphology 2. Normal LV ejection fraction 55-60% 3. Mildly calcified aortic and mitral valve with mild aortic regurgitation 4. No intracardiac thrombi, masses, vegetations 5. Mild left atrial enlargement 6. Mild atherosclerotic changes noted in the aorta 7. Normal pericardium Findings Procedure Information Consent was obtained prior to the procedure. Pre NOÉ oral cavity was checked and revealed mild overcrowding. The adult 3D probe was passed with no difficulty. Left Ventricle Normal left ventricular size and systolic function. The visually estimated ejection fraction is between 55-60%. There is no evidence of regional wall motion abnormalities. Spectral Doppler is indicative of an impaired relaxation filling pattern. There is no evidence of a mass in the left ventricle. Right Ventricle Normal right ventricular cavity size and systolic function. Atria The left atrium is mildly dilated. There is lipomatous hypertrophy of the interatrial septum. Contrast study for right to left shunting is mildly positive. Contrast study for right to left shunting is mildly positive with Valsalva maneuver. Patent foramen ovale detected using by contrast. There is no evidence of thrombus or mass in the left atrium. the left atrial appendage was identified multiple views and then no evidence of thrombi or masses within the left atrial appendage. The left upper, right upper and right lower pop in his in drained normally into the left atrium. The right atrium is likely dilated. There is no evidence of thrombus or mass in the right atrium. The IVC and SVC drain normally into the right atrium. Aortic Valve There is mild calcification of the aortic valve. There is no aortic valve stenosis. There is mild aortic valve regurgitation. That has increased gradient across the aortic valve out any clear evidence of valvular stenosis. That has no apparent self valvular memory noted either. Could be probably related to higher stroke volume Mitral Valve There is mild anterior and posterior mitral leaflet thickening. There is trace mitral valve regurgitation. There is no mitral valve stenosis. Pulmonic Valve The pulmonic valve is likely normal. There is trace pulmonic valve regurgitation. Tricuspid Valve Normal tricuspid valve structure. There is trace tricuspid valve regurgitation. The right ventricular systolic pressure is not calculated. Great Vessels All visible segments of the aorta are normal in size. The visualized portions of the pulmonary artery and branches are normal. Venous The inferior vena cava is normal in size and collapses greater than 50% with inspiration. Pericardium/Pleural There is no evidence of pericardial effusion. Measurements Aortic Valve AoV Pk Dangelo: 2.27 AoV Pk Grad: 21.00 Updated by Robbie Ocampo on 09:09 AM with Status of Final Robbie Ocampo MD electronically signed on 09/30/2025 9:09:58 AM with status of Final
--- NOTE | 2025-09-11 14:31 | MHC.SHP ---
Pre-Procedural Eval Section A - 24 Hr Update-Section A only Date of Service: 09/11/25 The patient is an INPATIENT: No Changes since office visit: Yes Patient answered all questions; No Cold of Flu in the past 2 weeks, No New Medical Problems and No Changes in Medication The patient has been examined within 24 hours of the surgical procedure. The History & Physical has been completed within 30 days and I have reviewed it.: Yes Section B - Complete if H&P > 30 days Chief Complaint: Cerebral infarction, unspecified Allergies: Allergies Allergy/AdvReac Type Severity Reaction Status Date / Time empagliflozin (From Allergy Severe Itching Verified 09/11/25 12:20 Jardiance) morphine (Morphine) Allergy Severe HIVES, Verified 09/11/25 12:20 THROAT CLOSES penicillin G (Penicillin G) Allergy Severe ANAPHYLAXIS Verified 09/11/25 12:20 Sulfa (Sulfonamide Allergy Severe ANAPHYLAXIS Verified 09/11/25 12:20 Antibiotics) (SULFA (SULFONAMIDE ANTIBIOTICS)) Gadolinium-Containing Allergy Intermediate Hives/Rash, Verified 09/11/25 12:20 Contrast Medi dizziness, (Gadolinium-Containing blue spots Agents) adhesive tape AdvReac Intermediate Rash Verified 09/11/25 12:20 tramadol AdvReac Intermediate Gastrointestinal Verified 09/11/25 12:20 Upset hydromorphone (From Dilaudid) AdvReac Anaphylaxis Verified 09/11/25 12:20 Plan I have reviewed the history and physical and performed a pertinent physical examination on my patient. No changes have occurred unless specified. Time Spent With Patient Time: Total time managing care of this patient today ____ minutes.
[2025-09-11 15:17] VITALS: BP 117/73; PULSE 90; RESP 12; TEMP 36.1; O2SAT 95
[2025-09-11 15:32] VITALS: BP 103/67; PULSE 72; RESP 16; O2SAT 96
== END 2025-09-11 15:57 | disposition home or self-care (01) ==
PROVIDERS: PCP Internal Medicine; Visit Provider Internal Medicine Cardiovascular Disease
PROC: (CPT 93312; principal; 2025-09-11 14:30)
DX: I63.9 Cerebral infarction, unspecified (principal); R00.2 Palpitations; R06.02 Shortness of breath; J45.909 Unspecified asthma, uncomplicated; I25.10 Atherosclerotic heart disease of native coronary artery without angina pectoris; I10 Essential (primary) hypertension; E11.42 Type 2 diabetes mellitus with diabetic polyneuropathy; E11.65 Type 2 diabetes mellitus with hyperglycemia; K21.9 Gastro-esophageal reflux disease without esophagitis; G47.33 Obstructive sleep apnea (adult) (pediatric); R51.9 Headache, unspecified; Z86.73 Personal history of transient ischemic attack (TIA), and cerebral infarction without residual deficits; Z79.85 Long-term (current) use of injectable non-insulin antidiabetic drugs; Z79.899 Other long term (current) drug therapy; Z99.89 Dependence on other enabling machines and devices; Z79.84 Long term (current) use of oral hypoglycemic drugs; Z91.041 Radiographic dye allergy status; L23.1 Allergic contact dermatitis due to adhesives; Z88.0 Allergy status to penicillin; Z88.2 Allergy status to sulfonamides; Z88.5 Allergy status to narcotic agent; Z88.8 Allergy status to other drugs, medicaments and biological substances
CPT/HCPCS: 93312; 82947; J2003; J2371; J2704

== ENCOUNTER → 2025-09-11 14:03 | Outpatient (BNV) | payer OTHER, SELFPAY | PROVIDERS: PCP Internal Medicine; Visit Provider Internal Medicine Cardiovascular Disease | DX: I63.9 Cerebral infarction, unspecified (principal) | CPT/HCPCS: 93312; 93321; 93325 ==

== ENCOUNTER 2025-09-25 12:20 | Outpatient (AMB) | payer OTHER, SELFPAY ==
--- OUTSIDE RECORDS SUMMARY | 2025-09-25 12:24 | XMS_ITS | Clinical Summary ---
Author Organization [facility] Address [address] [facility] [address] [place] [address] Phone Care Team Providers Care Medical Claims Representative Name Role Phone Татьяна Haynes MD Primary [...] each day 2 Active Insulin Infusion Pump (ThetaRay G6 Control-IQ Ins Pump) device Active metFORMIN [...] Visit [facility] [address] [phone] Paz Dee ARNP [address] [phone] Health Maintenance Due Date Last Done Comments [...] PM EDT) Hemoglobin A1C 6.3(H) (4.0-5.6) % [facility] Comment: MONITORING: In known diabetic patients, hemoglobin A1c targets should be discussed with health care provider. DIAGNOSTIC USE: The [place] Diabetes Association (ADA) and the World Health [...] Supplement 1 Testing performed or reported by [facility], a Service of [facility], [address] [place] [address] Terrell Carver MD, Shipping Processor [facility]# [id number] Blood specimen (specimen) Venous blood / Unknown 03/11/2023 2:17 PM EDT 03/11/2023 2:18 PM EDT us Aren Hoskins MD LAB BLOOD ORDERABLES Angelita l Result [facility] from Last 3 Months or Most Recently Relevant to Health Maintenance Insurance [facility] ([id number]) [facility] ([id number]) Care Teams Medical Claims Representative Relationship Specialty Start Date End Date Татьяна Haynes MD [address] [address] PCP - General Internal Medicine 01/25/23
--- OUTSIDE RECORDS SUMMARY | 2025-09-25 12:24 | XMS_ITS | Clinical Summary ---
Author Organization [facility] Address [address] [place] [address] Phone Care Team Providers Care Truck Mechanic Name Role Phone Christine De MD Primary Care Provider [phone] Allergies Active Allergy Reactions Criticality Noted Date [...] ID:[id number] Group ID:ICO Type:Not on file Address: [place] [address] [address] [phone] Care Teams Truck Mechanic Relationship Specialty Start Date End Date Christine De MD [address] [place] [address] PCP - General Internal Medicine 04/17/25
--- OUTSIDE RECORDS SUMMARY | 2025-09-25 12:24 | XMS_ITS | Patient Health Record ---
[facility] Address [address] [place] [address] Care Team Providers Care Concrete Pump Operator Helper Name Role Phone Darek Lani Primary Care Provider Unavailabl e Black, Margarita Unavailable [phone] Allergies Allergen (clinical drug ingredient) Drug/Non Drug [...] tive Ranitidine 1 tab Oral Active Umeclidinium [place] 62.5 MCG/INH 1 puff Inhalation Once a [...] primary osteoarthritis of the ankle and/or foot (755477456) Primary osteoarthritis, right ankle and foot (M19.071) Active confirmed Problem Polyneuropathy due to type 2 diabetes mellitus (471493182) Type 2 diabetes mellitus with diabetic polyneuropathy (E11.42) Active confirmed Problem Traumatic arthropathy of the ankle and/or foot (676090551) 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 Plan Of Treatment Pending Test Test Name Order Date [id number] NAIL, 6 OR MORE 07/10/2020 65920-[id number] NAIL, 6 OR MORE 01/08/2021 65825-AVFNQTU NAIL, 6 OR MORE 04/13/2021 36718-QYKEAES NAIL, 6 OR MORE 09/07/2021 92770-LLVOION NAIL, 6 OR MORE 12/17/2021 84995-JCYGHQA NAIL, 6 OR MORE 03/22/2022 71578-REBCFFV NAIL, 6 OR MORE 06/24/2022 [id number]-OCWUZYW NAIL, 6 OR MORE 09/23/2022 03349-CPXRKOZ NAIL, 6 OR MORE 12/30/2022 78207-Zpas Destruction, 1-14 12/30/2022 96348-Ykmt Destruction, 1-14 09/23/2022 19753, J0702- INJECT or DRAIN, JOINT/BUR SA 12/17/2021 66875-QFUP SKIN LESIONS, 2 TO 4 06/24/20 41895-GTOI SKIN LESIONS, 2 TO 4 12/31/19 74633-YGWF SKIN LESIONS, 2 TO 4 09/23/20, Q1905-ALYLY/INJECT, JOINT/BURSA 0 11/12/2019 64915, V2765-WQSOR/INJECT, JOINT/BURSA 0 03/22/2022 X ray : Ankle, right 3V 12/17/2021 Insurance Providers Payer Name Payer Address Payer Phone Subscriber Number Group Number Insured Name Patient Relationship to Insured Coverage Start Date Coverage End Date [facility] [employer] Claims [address] [place] [id number] Mohit Segovia Self - patient is the [...] gall bladder 11/07/2019 Hospitalization History Reason Date(Month/Year) [facility] 06/24
--- NOTE | 2025-09-25 12:44 | MHC.OFFVIS ---
Vital Signs 09/25/25 12:45 Height 6 ft Weight 249 lb 9.012 oz BMI 33.8 BP 110/62 Blood Pressure Location Lt brachial Pulse 88 Pulse Source Pulse Oximeter Intake Visit Reasons: Follow up post NOÉ Winch Driver Required: No Accompanied by: Self / Same As Patient Allergies empagliflozin (From Jardiance) Allergy (Severe, Verified 09/25/25 12:48) Itching morphine (Morphine) Allergy (Severe, Verified 09/25/25 12:48) HIVES, THROAT CLOSES penicillin G (Penicillin G) Allergy (Severe, Verified 09/25/25 12:48) ANAPHYLAXIS Sulfa (Sulfonamide Antibiotics) (SULFA (SULFONAMIDE ANTIBIOTICS)) Allergy (Severe, Verified 09/25/25 12:48) ANAPHYLAXIS Gadolinium-Containing Contrast Medi (Gadolinium-Containing Agents) Allergy (Intermediate, Verified 09/25/25 12:48) Hives/Rash, dizziness, blue spots adhesive tape Adverse Reaction (Intermediate, Verified 09/25/25 12:48) Rash tramadol Adverse Reaction (Intermediate, Verified 09/25/25 12:48) Gastrointestinal Upset hydromorphone (From Dilaudid) Adverse Reaction (Verified 09/25/25 12:48) Anaphylaxis Medication List - Last Reconciled 09/25/25 by Babak Fierro NP acetaminophen 650 mg PO Q6H PRN albuterol sulfate 2.5 mg (3 mL) inhalation Q6H PRN 30 days albuterol sulfate 90 mcg/actuation (Ventolin HFA) 2 puffs inhalation QID PRN 30 days allopurinol 300 mg PO DAILY amlodipine 10 mg PO DAILY armodafinil (Nuvigil) 100 mg (2 x 50 mg) PO QAM 30 days aspirin 81 mg PO DAILY azelastine 2 sprays intranasal BID 30 days blood sugar diagnostic (FreeStyle Lite Strips) 4 times a day blood-glucose meter (FreeStyle Lite Meter kit) As directed 4x/day lmakxqfowi-wacbgaoc-vsqgujcwin 160-9-4.8 mcg/actuation (Breztri Aerosphere) 2 inhalations inhalation BID 30 days carboxymethylcellulose sodium 0.5% (Refresh Tears) 1 drp ophthalmic (eye) BID Dexcom G7 Sensor (blood-glucose sensor) As directed NS dulaglutide (Trulicity) 1.5 mg subcut QWEEK duloxetine 30 mg PO BID famotidine (Heartburn Relief (famotidine)) 10 mg PO BID flash glucose scanning reader (FreeStyle [place] 2 [place]) As directed flash glucose sensor (FreeStyle [place] 2 Sensor kit) As directed every 2 weeks fluoxetine 60 mg PO DAILY lancets (FreeStyle Lancets) 4 times a day lidocaine 5% (Lidoderm) 1 patch topical DAILY 30 days lisinopril 30 mg (3 x 10 mg) PO DAILY lorazepam 1 mg PO BID PRN melatonin 5 mg PO BEDTIME PRN 30 days metoprolol succinate ER 50 mg PO BID omeprazole 40 mg PO BID ondansetron 4 mg PO Q8H pen needle, diabetic As directed pioglitazone 30 mg PO DAILY pregabalin 150 mg PO BID rosuvastatin 40 mg PO DAILY sildenafil 100 mg PO DAILY PRN sodium chloride-aloe vera ([place] Saline Gel nasal spray) 1 spray intranasal BID 30 days tamsulosin 0.4 mg PO DAILY Tresiba FlexTouch U-100 (insulin degludec) 30 units (0.3 mL) subcut BEDTIME 90 days NS HPI Comments Details: This is a 60-year-old male patient coming in for a follow-up visit, accompanied by his . Patient with a history of hypertension, hyperlipidemia, coronary artery disease, sleep apnea, and aortic stenosis. Patient with a history of CVA in 2023 and 2 TIAs since. Given negative MRA of the neck, patient underwent cardiac evaluation with a NOÉ and a cardiac event monitor. Today, patient is reporting feeling well overall without any cardiac symptoms of exertional chest pain, shortness of breath, palpitations, dizziness, orthopnea, PND, leg edema, presyncope or syncope. Patient is reporting compliance with all his medications. Patient is denying any recent hospitalizations or any recurrences in his symptoms of TIA. [facility] Medical History Preop cardiovascular exam SOB (shortness of breath) on exertion Palpitations Chest pain Hypersomnia with sleep apnea Difficulty swallowing RSV (respiratory syncytial virus infection) Has daytime drowsiness Allergies History of anesthesia complications Family history of anesthesia complication Type 2 diabetes mellitus Murmur COPD (chronic obstructive pulmonary disease) Lumbar post-laminectomy syndrome Degenerative cervical spinal stenosis Neuropathic pain COVID-19 Post herpetic neuralgia Pleuritic chest pain Obesity (BMI 30-39.9) Asthma Pneumonia SONY (obstructive sleep apnea) [id number] syndrome Reactive airway disease On beta mitra at home History of pneumonia Vitamin D deficiency Left nephrolithiasis Dyslipidemia Diabetic polyneuropathy associated with type 2 diabetes mellitus Hypogonadism Failed back syndrome of lumbar spine Arthritis Back pain GERD (gastroesophageal reflux disease) History of fatty infiltration of liver History of ADHD Depression Elevated cholesterol HTN (hypertension) CAD (coronary artery disease) History of 2019 novel coronavirus disease (COVID-19) Cervical radiculopathy Nephrolithiasis Surgical History S/P cardiac catheterization Gynecomastia History of elbow surgery Hx laparoscopic cholecystectomy History of carpal tunnel release Hx of shoulder surgery Hx of arthroscopic knee surgery History of esophagogastroduodenoscopy (EGD) H/O colonoscopy Hx of lumbar discectomy Hx of cardiac catheterization Family History Father Diabetes Hypertension Myocardial infarction Mother Diabetes Stroke Alzheimers disease Pacemaker Brother Diabetes Heart problem Myocardial infarction Sister Myocardial infarction Maternal Grandmother Myocardial infarction Unknown No problems noted. Social History Household Members: Spouse and Family Housing: Apartment Are you a primary care taker to a significant other at home: No Do you presently have visiting nurse or other home services: No Alcohol intake: never Patient Tobacco Use Status: Never used Tobacco e-Cigarette/Vaping Use: Never Used Second Hand Smoke Exposure: No Advance Directives Date on File: 09/28/23 service: No Current occupational status: disabled Cognitive needs: No Hearing needs: No Vision needs: No Review of Systems Const Denies daytime sleepiness, Denies difficulty sleeping, Denies snoring, Denies stops breathing during sleep and Denies weakness Card Denies chest pain, Denies rapid heart rate, Denies irregular heart rhythm, Denies claudication, Denies leg edema, Denies lightheadedness, Denies palpitations, Denies dyspnea, Denies dyspnea on exertion, Denies orthopnea, Denies paroxysmal nocturnal dyspnea and Denies slow heart rate Resp Denies cough, Denies dyspnea, Denies dyspnea on exertion and Denies snoring GI Reports no additional complaints, Denies hematochezia, Denies change in stool character and Denies dyspepsia Musc Denies abnormal gait, Denies muscle weakness and Denies numbness Neuro Denies abnormal gait, Denies numbness and Denies weakness Endo Denies palpitations Physical Exam Vital Signs: Last Vital Signs Pulse 88 09/25/25 12:45 BP 110/62 09/25/25 12:45 BMI result Body Mass Index 33.8 Const General: cooperative, healthy appearing, comfortable and no acute distress Orientation/consciousness: patient oriented x3 HEENT Head: Yes normal to inspection Neck Neck: Yes normal visual inspection, Yes trachea midline and Yes supple Chest Chest palpation & inspection: normal inspection of the chest Resp Effort & Inspection: normal respiratory effort Auscultation: clear to auscultation bilaterally, no crackles, no rales, no rhonchi and no wheezes Cardio Jugular venous distension: no JVD Palpation: normal PMI Rate: regular rate Rhythm: regular rhythm Heart sounds: S1 normal heart sound present, S2 normal heart sound present, no click, no gallops, Murmur heart sound present systolic and no rubs Peripheral pulses: Peripheral pulses 2+ throughout GI Inspection: Yes normal to inspection Palpation (GI): Soft to palpation Auscultation: normal bowel sounds Skin General skin exam: no rashes or lesions noted Neuro General: patient oriented x3 Extrem General: Yes normal to inspection, No no pedal edema and No calf tenderness Psych Appearance: grossly normal Mental Status: mental status grossly normal Speech and movement: Normal speech and movement present Assessment & Plan Assessment & Plan (1) PFO (patent foramen ovale): Code(s): Q21.12 - Patent foramen ovale Category: Medical Plan: Patient with a history of stroke in 2023 and 2 TIAs since. MRA of neck was negative for carotid stenosis. Given his history of sleep apnea, patient underwent a cardiac event monitor on 08/21/2025 to assess for AFib. Cardiac event monitor shows underlying sinus rhythm with rare episodes of PACs and PVCs. Patient also underwent a NOÉ to evaluate for PFO on 09/11/[address] Ocampo. NOÉ was positive for PFO- finding discussed with Dr. Ocampo. Report pending. Continue aspirin therapy. We will plan to send patient to Interventional Cardiology for PFO closure. The procedure along with its indications, risks, and benefits was discussed with the patient and they verbalized understanding. (2) CAD (coronary artery disease): Code(s): I25.10 - Atherosclerotic heart disease of [place] coronary artery without angina pectoris Category: Medical Qualifiers: Coronary Disease-Associated Artery/Lesion type: [place] artery [place] vs. transplanted heart: [place] heart Associated angina: without angina Qualified Code(s): I25.10 - Atherosclerotic heart disease of [place] coronary artery without angina pectoris Plan: 05/19/2023-patient underwent a cardiac catheterization with Dr. Leong at [facility] that showed nonobstructive disease in the mid LAD with 30% stenosis. 05/07/2025-patient's echo showed a normal LV systolic function with an ejection fraction at 63% with mild aortic valve stenosis. Clinically stable and without cardiac symptoms. Continue aspirin, high-dose statin, Zetia, and metoprolol therapy. Ideally, LDL goal less than 70. (3) Aortic valve disorder: Code(s): I35.9 - Nonrheumatic aortic valve disorder, unspecified Category: Medical Plan: As above. (4) HTN (hypertension): Code(s): I10 - Essential (primary) hypertension Category: Medical Qualifiers: Hypertension type: essential hypertension Qualified Code(s): I10 - Essential (primary) hypertension Plan: Blood pressure today is well-controlled. Continue current regimen with a blood pressure goal less than 130/80. Advised on low-salt diet. (5) Dyslipidemia: Code(s): E78.5 - Hyperlipidemia, unspecified Category: Medical Plan: As above. (6) Type 2 diabetes mellitus with hyperglycemia: Code(s): E11.65 - Type 2 diabetes mellitus with hyperglycemia Category: Medical Qualifiers: Diabetes mellitus technician terminal and repeater insulin use: with jail use Qualified Code(s): E11.65 - Type 2 diabetes mellitus with hyperglycemia; Z79.4 - long term care phlebotomist (current) use of insulin Plan: Continue aggressive diabetes management with an A1c goal less than 7%. Followed by endocrinology. (7) SONY (obstructive sleep apnea): Code(s): G47.33 - Obstructive sleep apnea (adult) (pediatric) Category: Medical Plan: Continue CPAP therapy. Followed by pulmonology. Advised on heart healthy diet, regular exercise, med compliance, losing weight, and aggressive management of vascular risk factors. Follow up after PFO closure. In the interim, patient will call the office with any concerns or change in symptoms. This note was generated using voice recognition software. While every effort has been made to ensure accuracy and proper mill order scheduler, there may be occasional errors that could affect the content or meaning of the described symptoms. Orders: Referrals Interventional Cardiology Referral G45.9 - Transient cerebral ischemic attack, unspecified, I63.9 - Cerebral infarction, unspecified, Q21.12 - Patent foramen ovale Coding Level of Care Code Est Pt Level 4 (49577) Add On Problem Visit Only Diagnoses PFO (patent foramen ovale) Q21.12 Coronary artery disease involving [place] coronary artery of [place] heart without angina pectoris I25.10 Coronary Disease-Associated Artery/Lesion type: [place] artery [place] vs. transplanted heart: [place] heart Associated angina: without angina Aortic valve disorder I35.9 Essential hypertension I10 Hypertension type: essential hypertension Dyslipidemia E78.5 Type 2 diabetes mellitus with hyperglycemia, with long-term current use of insulin E11.65; Z79.4 Diabetes mellitus jail insulin use: with technician terminal and repeater use SONY (obstructive sleep apnea) G47.33 Time Spent (min) 33 Comment Time spent in reviewing the chart, test results, assessment, counseling and documentation.
[2025-09-25 12:45] VITALS: BP 110/62; PULSE 88; BMI 33.8
== END 2025-09-25 13:07 | disposition home or self-care (01) ==
LOC: HO.HCS 12:21
PROVIDERS: PCP Internal Medicine
DX: Q21.12 Patent foramen ovale (principal); I25.10 Atherosclerotic heart disease of native coronary artery without angina pectoris; I35.9 Nonrheumatic aortic valve disorder, unspecified; I10 Essential (primary) hypertension; E78.5 Hyperlipidemia, unspecified; E11.65 Type 2 diabetes mellitus with hyperglycemia; Z79.4 Long term (current) use of insulin; G47.33 Obstructive sleep apnea (adult) (pediatric)
CPT/HCPCS: 99214; G2211

== ENCOUNTER → 2025-09-25 12:20 | Outpatient (BNVA) | payer OTHER, SELFPAY | PROVIDERS: PCP Internal Medicine | DX: I25.10 Atherosclerotic heart disease of native coronary artery without angina pectoris (principal); I35.9 Nonrheumatic aortic valve disorder, unspecified; Q21.12 Patent foramen ovale; I10 Essential (primary) hypertension; E78.5 Hyperlipidemia, unspecified; E11.65 Type 2 diabetes mellitus with hyperglycemia; Z79.4 Long term (current) use of insulin; G47.33 Obstructive sleep apnea (adult) (pediatric); Z79.82 Long term (current) use of aspirin; Z79.899 Other long term (current) drug therapy; Z99.89 Dependence on other enabling machines and devices | CPT/HCPCS: 99212 ==